=== PATIENT | male | born 1975 | race Caucasian/White ===

== ENCOUNTER 2023-02-12 16:35 | Outpatient (OUT) | payer BC, SELFPAY ==
--- NOTE | 2023-02-12 | XR_ITS ---
The [address] [address] Patient Name: MOI LLANOS MRN: [id number] date: 1975 Sex: M Assigned Patient Location: RAD Current Patient Location: [facility] Accession/Order Number: [id number] Exam Date: 02/12/2023 16:53 Report Date: 02/15/2023 06:46 At the request of: CRYSTAL ELAM Procedure: XR knee RT 4V PROCEDURE: XR knee RT 4V HISTORY: Right knee pain , chronic COMPARISON: None. FINDINGS: BONES:No fracture, acute abnormality, or significant arthropathy. SOFT TISSUES:No visible soft tissue swelling. EFFUSION:None visible. OTHER: Negative. XR/XR knee RT 4V IMPRESSION: 1. No acute bone abnormality or significant degenerative joint disease. Electronically authenticated by: WIL MCCOLLUM Date: 02/15/2023 06:46
--- NOTE | 2023-02-12 | XR_ITS ---
The [address] [address] Patient Name: MOI LLANOS MRN: [id number] date: 1975 Sex: M Assigned Patient Location: [facility] Current Patient Location: Accession/Order Number: [id number] Exam Date: 02/12/2023 16:53 Report Date: 02/15/2023 06:45 At the request of: CRYSTAL BLUNT Procedure: XR cervical spine 5V EXAMINATION: XR cervical spine 5V HISTORY: M54.2; Cervicalgia ; chronic neck pain and left arm numbness COMPARISON: XR C-spine 12/08/2018 FINDINGS: BONES: Straightening of normal lordotic curvature. No fracture or spondylolisthesis. No significant facet arthropathy. DISC SPACES: Mild narrowing C4-C5. Moderate narrowing C5-C6 and C6-C7 with posterior disc-osteophyte complexes. PARASPINOUS: Negative. No paraspinous abnormality is seen. OTHER: Negative. XR/XR cervical spine 5V IMPRESSION: 1. Moderate degenerative disc disease of mid and lower cervical spine; progressed since prior study. Electronically authenticated by: WIL MCCOLLUM Date: 02/15/2023 06:45
== END 2023-02-12 16:36 | disposition home or self-care (01) ==
LOC: RAD 16:38
PROVIDERS: Family Provider Family Medicine; PCP Family Medicine; Visit Provider Family Medicine
DX: M54.2 Cervicalgia (principal); M25.561 Pain in right knee; M50.30 Other cervical disc degeneration, unspecified cervical region
CPT/HCPCS: 72050; 73564

== ENCOUNTER 2024-02-12 12:42 | Emergency (ER) | payer BC, SELFPAY ==
[2024-02-12 13:00] VITALS: BP 121/78; PULSE 82; TEMP 36.6; O2SAT 97; BMI 28.6
--- NOTE | 2024-02-12 13:30 | CT_ITS ---
[address] [address] Patient Name: MOI LLANOS MRN: [id number] date: 1975 Sex: M Assigned Patient Location: ER Current Patient Location: Accession/Order Number: [id number] Exam Date: 02/12/2024 14:32 Report Date: 02/12/2024 15:14 At the request of: CORI WYNNE Procedure: CT abdomen pelvis w con EXAMINATION: CT abdomen pelvis w con HISTORY: pain, rectal bleeding COMPARISON: 03/16/2022 TECHNIQUE: CT images were created with IV contrast. Axial, Coronal, and Sagittal images. Dose reduction techniques were achieved by using automated exposure control and/or adjustment of mA and/or kV according to patient size and/or use of iterative reconstruction technique. FINDINGS: LUNG BASES: No visible pulmonary or pleural disease. LIVER: Diffuse hypoattenuation consistent with hepatic steatosis BILIARY: No visible dilatation or calcification. PANCREAS: No lesion, fluid collection, ductal dilatation, or atrophy. SPLEEN: No enlargement or focal lesion. ADRENALS: No mass or enlargement. KIDNEYS: No mass, obstruction, or calcification. BOWEL/MESENTERY: No visible mass, obstruction, or bowel wall thickening. Normal appendix AORTA/VASCULAR: No aortic aneurysm. Moderate calcific atherosclerosis RETROPERITONEUM: No mass or adenopathy. LYMPH NODES: No adenopathy. URINARY BLADDER: Moderate distention PELVIC ORGANS: No visible mass. Pelvic organs appropriate for patient age. ABDOMINAL WALL: No mass or hernia. BONES: Lumbosacral fusion OTHER: Implanted device left leg CT/CT abdomen pelvis w con IMPRESSION: No acute intraperitoneal abnormality Electronically authenticated by: ANN JUDGE Date: 02/12/2024 15:14
--- NOTE | 2024-02-12 13:32 | ED.GIBLEED1 ---
HPI - GI Bleed General Chief complaint: GI Bleed Stated complaint: RECTAL BLEEDING Time Seen by Provider: 02/12/24 13:26 Source: patient and family Mode of arrival: walk-in Limitations: no limitations History of Present Illness HPI Narrative: 48 year old male presents to the ED for rectal bleeding. Reports having an episode with a bowel movement 4 days ago. States it was a hard stool. The bleeding returned last night. States it is bright red. Denies fever, chills, injury, abd pain, N/V/D. He has been on narcotics for 3-4 weeks s/p spine surgery. He takes 81 mg asa daily. Denies consumption of alcohol; reports one drink per year if any. Related Data Home Medications ?Medication ?Instructions ?Recorded ?Confirmed albuterol sulfate 90 mcg/actuation 2 inh inhalation Q4H PRN shortness 02/12/24 02/12/24 aerosol inhaler (Ventolin HFA) of breath or wheezing aspirin 81 mg chewable tablet 1 tab PO DAILY 02/12/24 02/12/24 carisoprodol 350 mg tablet 350 mg PO TID 02/12/24 02/12/24 dapagliflozin propanediol 10 mg 10 mg PO DAILY 02/12/24 02/12/24 tablet (Farxiga) finasteride 5 mg tablet 5 mg PO DAILY 02/12/24 02/12/24 fluconazole 100 mg tablet 100 mg PO DAILY 02/12/24 02/12/24 hydrochlorothiazide 25 mg tablet 25 mg PO DAILY 02/12/24 02/12/24 lisinopril 2.5 mg tablet 2.5 mg PO DAILY 02/12/24 02/12/24 meloxicam 15 mg tablet 15 mg PO DAILY 02/12/24 02/12/24 metformin 500 mg tablet 500 mg PO BID 02/12/24 02/12/24 metoprolol tartrate 25 mg tablet 25 mg PO BID 02/12/24 02/12/24 pantoprazole 40 mg tablet,delayed 40 mg PO BID 02/12/24 02/12/24 release pregabalin 150 mg capsule 150 mg PO TID 02/12/24 02/12/24 rosuvastatin 20 mg tablet 20 mg PO DAILY 02/12/24 02/12/24 tamsulosin 0.4 mg capsule 0.4 mg PO DAILY 02/12/24 02/12/24 Previous Rx's ?Medication ?Instructions ?Recorded docusate sodium 100 mg capsule 100 mg PO BID #14 caps 02/12/24 (Colace) Allergies Allergy/AdvReac Type Severity Reaction Status Date / Time cephalexin (From Keflex) AdvReac Severe Unknown Verified 02/12/24 13:05 Review of Systems ROS Constitutional Denies: fever or chills Ears, nose, mouth, and throat Denies: neck pain Cardiovascular Denies: chest pain Respiratory Denies: shortness of breath Gastrointestinal Reports: blood in stool; Denies: abdominal pain, nausea, vomiting, diarrhea, constipation, bloating, painful bowel movements or rectal pain Genitourinary Denies: painful urination or blood in urine Musculoskeletal Denies: back pain or neck pain Integumentary/Breast Denies: rash Neurological Denies: headache or dizziness PFSH PFSH Social History Little interest or pleasure in doing things: not at all Feeling down, depressed, or hopeless: not at all Exam Constitutional Vital Signs, click to edit/add: Last Vital Signs Temp 98 F 02/12/24 13:00 Pulse 82 02/12/24 13:00 Resp 18 02/12/24 13:00 BP 121/78 02/12/24 13:00 Pulse Ox 97 02/12/24 13:00 O2 Del Method Room Air 02/12/24 13:00 Common normals: no apparent distress and oriented x3 General appearance: cooperative Eye Common normals: conjunctivae normal and no scleral icterus Neck & C-Spine Common normals: supple Chest Chest: symmetrical chest wall rise Respiratory Common normals: normal respiratory effort Effort & inspection: able to speak in complete sentences and symmetric chest movement Cardio Common normals: regular rate GI Common normals: Normal to inspection, nondistended, normoactive bowel sounds present and soft to palpation Palpation: tender Details: epigastric Rectal Exam - Male: visual inspection normal, normal sphincter tone, heme positive stool and tenderness; no hemorrhoids and no fecal impaction Other: RN at bedside for director center. No gross bleeding noted on examination. Neuro Common normals: oriented x3 and moves all extremities Sensorium/orientation: awake and alert Speech: speech normal Course Vital Signs Vital signs: Vital Signs Temperature 98 F 02/12/24 13:00 Pulse Rate 82 02/12/24 13:00 Respiratory Rate 18 02/12/24 13:00 Blood Pressure 121/78 02/12/24 13:00 Pulse Oximetry 97 02/12/24 13:00 Oxygen Delivery Method Room Air 02/12/24 13:00 Temperature 98 F 02/12/24 13:00 Pulse Rate 82 02/12/24 13:00 Respiratory Rate 18 02/12/24 13:00 Blood Pressure 121/78 02/12/24 13:00 Pulse Oximetry 97 02/12/24 13:00 Oxygen Delivery Method Room Air 02/12/24 13:00 MDM - GI Bleed MDM Narrative Medical decision making narrative: CT scan was negative for acute findings. Hgb was 13.2. No gross bleeding was noted on examination. Hemoccult was positive. The patient was hemodynamically stable. He was encouraged to follow up with GI for a recheck, further evaluation and treatment. He takes Protonix. He reported passing a hard stool with the initial episode of bleeding. A prescription was provided for Colace. Return precautions were discussed. Medical Records Attestation: I reviewed the patient's medical records. Lab Data Attestation: I reviewed the patient's lab results. Labs: Lab Results 02/12/24 02/12/24 02/12/24 Range/Units 13:29 13:35 15:26 WBC 12.2 H (4.0-11.0) 10^3/uL RBC 4.87 (4.70-6.10) 10^6/uL Hgb 13.2 L (14.0-18.0) g/dL Hct 40.5 L (42.0-54.0) % MCV 83.2 (80.0-94.0) fL MCH 27.1 (25.9-34.0) pg MCHC 32.6 (29.9-35.2) g/dL RDW 14.5 (11.0-15.0) % Plt Count 334 (150-450) 10^3/uL MPV 10.6 (9.5-13.5) fL Neut % (Auto) 61.8 (43.0-75.0) % Lymph % (Auto) 27.6 (20.5-60.0) % [place] % (Auto) 5.8 (1.7-12.0) % Eos % (Auto) 3.6 (0.9-7.0) % Baso % (Auto) 0.8 (0.2-2.0) % Neut # (Auto) 7.5 H (1.4-6.5) 10^3/uL Lymph # (Auto) 3.4 (1.2-3.8) 10^3/uL [place] # (Auto) 0.7 (0.3-0.8) 10^3/uL Eos # (Auto) 0.4 (0.0-0.7) 10^3/uL Baso # (Auto) 0.1 (0.0-0.1) 10^3/uL Abs Immat Gran (auto) 0.05 H (0.00-0.03) 10^3/uL Imm/Tot Granulo (auto) 0.4 (0.0-0.5) % PT 9.9 (9.0-11.6) sec INR 0.93 APTT 26.8 (22.3-36.2) sec Sodium 135 L (136-145) mmol/L Potassium 4.1 (3.5-5.1) mmol/L Chloride 98 (98-107) mmol/L Carbon Dioxide 27.2 (21.0-32.0) mmol/L Anion Gap 13.9 BUN 16.0 (7.0-18.0) mg/dL Creatinine 0.75 (0.70-1.30) mg/dL Est GFR ( Amer) >60 (>=60 mL/min/1.73m^2) Est GFR (Non-Af Amer) >60 (>=60 mL/min/1.73m^2) BUN/Creatinine Ratio 21.3 Glucose 293 H (74-106) mg/dL Calcium 9.5 (8.5-10.1) mg/dL Total Bilirubin 0.2 (0.2-1.0) mg/dL AST 12 L (15-37) U/L ALT 26 (16-63) U/L Alkaline Phosphatase 144 H (46-116) U/L Total Protein 7.0 (6.4-8.2) g/dL Albumin 3.0 L (3.4-5.0) g/dL Globulin 4.0 g/dL Albumin/Globulin Ratio 0.8 Lipase 38.0 (16.0-77.0) U/L Urine Color Lt. yellow (YELLOW) Urine Clarity Clear (CLEAR) Urine pH 6.5 (5.0-9.0) Ur Specific [place] 1.010 (1.005-1.025) Urine Protein Negative (NEG/TRACE) mg/dL Urine Glucose (UA) >=1000 A (NEGATIVE) mg/dL Urine Ketones Negative (NEGATIVE) mg/dL Urine Occult Blood Negative (NEGATIVE) Urine Nitrite Negative (NEGATIVE) Urine Bilirubin Negative (NEGATIVE) Urine Urobilinogen 0.2 (0.2-1.0) EU/dL Ur Leukocyte Esterase Negative (NEGATIVE) Stool Occult Blood Positive A Imaging Data CT scan - abdomen: Attestation: I have reviewed the pertinent imaging results. Radiologist's impression: ITS Impressions Abdomen/Pelvis CT 02/12/24 13:30 IMPRESSION: No acute intraperitoneal abnormality Electronically authenticated by: ANN JUDGE Date: 02/12/2024 15:14 Discharge Plan Discharge Chief Complaint: GI Bleed Clinical Impression: Rectal bleeding Patient Disposition: Home, Self-Care Time of Disposition Decision: 15:33 Condition: Good Mode of Transportation: Private Vehicle Prescriptions / Home Meds: New docusate sodium [Colace] 100 mg capsule 100 mg PO BID Qty: 14 0RF No Action albuterol sulfate [Ventolin HFA] 90 mcg/actuation HFA aerosol inhaler 2 inh INHALATION Q4H PRN (Reason: shortness of breath or wheezing) aspirin 81 mg tablet,chewable 1 tab PO DAILY carisoprodol 350 mg tablet 350 mg PO TID dapagliflozin propanediol [Farxiga] 10 mg tablet 10 mg PO DAILY finasteride 5 mg tablet 5 mg PO DAILY fluconazole 100 mg tablet 100 mg PO DAILY hydrochlorothiazide 25 mg tablet 25 mg PO DAILY lisinopril 2.5 mg tablet 2.5 mg PO DAILY meloxicam 15 mg tablet 15 mg PO DAILY metformin 500 mg tablet 500 mg PO BID metoprolol tartrate 25 mg tablet 25 mg PO BID pantoprazole 40 mg tablet,delayed release (DR/EC) 40 mg PO BID pregabalin 150 mg capsule 150 mg PO TID rosuvastatin 20 mg tablet 20 mg PO DAILY tamsulosin 0.4 mg capsule 0.4 mg PO DAILY Print Language: Slovenian Instructions: Gastrointestinal Bleeding (ED), Rectal Bleeding (ED) Additional Instructions: Continue your pantoprazole as directed. Take the stool softener as directed. Return to the ER for new or worsening symptoms. Return to the ER if you develop shortness of breath, dizziness, fever, or abdominal pain. Follow up with gastroenterology for a recheck, further evaluation and treatment. Referrals: CRYSTAL ELAM [Primary Care Provider] - 1 week Santa Rees DO [Physician] - 1 week Discharge Date/Time: 02/12/24 15:59
[2024-02-12 13:38] LABS: Internal Control Within Normal Limits; Occult Blood Positive
[2024-02-12 13:59] LABS: Basophils Absolute Auto 0.1 10^3/uL (0.0-0.1); Basophils Percent Auto 0.8 % (0.2-2.0); Eosinophils Absolute Auto 0.4 10^3/uL (0.0-0.7); Eosinophils Percent Auto 3.6 % (0.9-7.0); Hematocrit 40.5 % (42.0-54.0); Hemoglobin 13.2 g/dL (14.0-18.0); Immature Granulocytes Abs Auto 0.05 10^3/uL (0.00-0.03); Immature Granulocytes Pct Auto 0.4 % (0.0-0.5); Lymphocytes Absolute Auto 3.4 10^3/uL (1.2-3.8); Lymphocytes Percent Auto 27.6 % (20.5-60.0); Mean Corpuscular HGB Conc 32.6 g/dL (29.9-35.2); Mean Corpuscular Hemoglobin 27.1 pg (25.9-34.0); Mean Corpuscular Volume 83.2 fL (80.0-94.0); Mean Platelet Volume 10.6 fL (9.5-13.5); Monocytes Absolute Auto 0.7 10^3/uL (0.3-0.8); Monocytes Percent Auto 5.8 % (1.7-12.0); Neutrophils Absolute Auto 7.5 10^3/uL (1.4-6.5); Neutrophils Percent Auto 61.8 % (43.0-75.0); Platelet Count 334 10^3/uL (150-450); Red Blood Count 4.87 10^6/uL (4.70-6.10); Red Cell Distribution Width 14.5 % (11.0-15.0); White Blood Count 12.2 10^3/uL (4.0-11.0)
[2024-02-12 14:16] LABS: INR 0.93; Partial Thromboplastin Time 26.8 sec (22.3-36.2); Prothrombin Time 9.9 sec (9.0-11.6)
[2024-02-12 14:26] LABS: Alanine Aminotransferase 26 U/L (16-63); Albumin Globulin Ratio 0.8; Alkaline Phosphatase 144 U/L (46-116); Anion Gap 13.9; Aspartate Amino Transferase 12 U/L (15-37); BUN Creatinine Ratio 21.3; Bilirubin Total 0.2 mg/dL (0.2-1.0); Calcium 9.5 mg/dL (8.5-10.1); Carbon Dioxide 27.2 mmol/L (21.0-32.0); Chloride 98 mmol/L (98-107); Estimated GFR (African America >60 (>=60 mL/min/1.73m^2); Estimated GFR (Non-African Ame >60 (>=60 mL/min/1.73m^2); Glucose 293 mg/dL (74-106); Potassium 4.1 mmol/L (3.5-5.1); Sodium 135 mmol/L (136-145)
[2024-02-12 15:32] LABS: Bilirubin Urine NEGATIVE (NEGATIVE); Blood Urine NEGATIVE (NEGATIVE); Clarity Urine CLEAR (CLEAR); Color Urine LT. YELLOW (YELLOW); Glucose Urine UA >=1000 mg/dL (NEGATIVE); Ketones Urine NEGATIVE (NEGATIVE); Leukocyte Esterase Urine NEGATIVE (NEGATIVE); Nitrite Urine NEGATIVE (NEGATIVE); Protein Urine NEGATIVE (NEG/TRACE); Urine Microscopic Indicated NO; Urobilinogen Urine 0.2 EU/dL (0.2-1.0); pH Urine 6.5 (5.0-9.0)
== END 2024-02-12 15:59 | disposition home or self-care (01) ==
PROVIDERS: Nurse Practitioner Family; Emergency Provider Emergency Medicine; Family Provider Family Medicine; PCP Family Medicine
DX: K62.5 Hemorrhage of anus and rectum (principal); Z79.82 Long term (current) use of aspirin; Z98.1 Arthrodesis status
CPT/HCPCS: 36415; 74177; 80053; 81003; 83690; 85025; 85610; 85730; 99285; G0328; Q9967

== ENCOUNTER 2025-01-19 10:53 | Emergency (ER) | payer BC, SELFPAY ==
[2025-01-19] VITALS (18 sets, daily range): BP systolic 109–155; BP diastolic 63–92; PULSE 76; TEMP 37.1; O2SAT 93–97; BMI 27.9
--- OUTSIDE RECORDS SUMMARY | 2025-01-19 11:07 | XMS_ITS | Clinical Summary ---
Author Organization [facility] Address [address] [place] [address] Phone Care Team Providers Care Bed Spring Maker Name Role Phone Ahsan Carmona MD Primary Care Provider [phone] Allergies Active AllergyReactionsCriticalityNoted WomlQrexcbofNsjmfvskwhOdtthyt49/07/2023 Medications MedicationSigDispense QuantityRefillsLast FilledStart DateEnd DateStatus albuterol 90 mcg/actuation inhaler Inhale 1 puff every 4 hours if needed.Active aspirin 81 mg chewable tablet Chew 1 tablet (81 mg) once daily.Active dapagliflozin propanediol (Farxiga) 10 mg Take 1 tablet (10 mg) by mouth once daily.11/06/2021ctive finasteride (Proscar) 5 mg tablet Take 1 tablet (5 mg) by mouth once daily.01/30/2022ctive hydroCHLOROthiazide (HYDRODiuril) 25 mg tablet Take 1 tablet (25 mg) by mouth once daily.Active HYDROcodone-acetaminophen ([place]) 5-325 mg tablet Take 1 tablet by mouth every 6 hours if needed.Active lisinopril 2.5 mg tablet Take 1 tablet (2.5 mg) by mouth once daily.Active metFORMIN XR 500 mg 24 hr tablet Take 1 tablet (500 mg) by mouth 2 times a day.Active pregabalin (Lyrica) 150 mg capsule Take 1 capsule (150 mg) by mouth 2 times a day.Active tamsulosin (Flomax) 0.4 mg 24 hr capsule Take 1 capsule (0.4 mg) by mouth once daily.Active carisoprodol (Soma) 350 mg tablet Take 1 tablet (350 mg) by mouth 2 times a day as needed for muscle spasms.Active Stiolto Respimat 2.5-2.5 mcg/actuation mist inhaler Inhale 2 Inhalations once daily.Active meloxicam (Mobic) 15 mg tablet Take 1 tablet (15 mg) by mouth once daily.Active metoprolol tartrate (Lopressor) 25 mg tablet Indications:Coronary artery disease, unspecified vessel or lesion type, unspecified whether angina present, unspecified whether [place] or transplanted heartTake 0.5 tablets (12.5 mg) by mouth 2 times a day. 90 tablet 304504/6Active nitroglycerin (Nitrostat) 0.4 mg SL tablet Indications:History of PTCAPlace 1 tablet (0.4 mg) under the tongue every 5 minutes if needed for chest pain for up to 25 doses. 25 tablet 5Active sildenafil (Viagra) 50 mg tablet Indications:Drug-induced erectile dysfunctionTake 1 tablet (50 mg) by mouth once daily as needed for erectile dysfunction. 30 tablet 5Active rosuvastatin (Crestor) 20 mg tablet Indications:Hyperlipidemia, unspecified hyperlipidemia typeTake 1 tablet (20 mg) by mouth once daily. 90 tablet 3:19 PM EDT507/6Active Active Problems ProblemNoted DateDiagnosed DateBody mass index (BMI) of 29.0 to 29.9 in adult 06/25/2024ED (erectile dysfunction)06/25/2024urrent vdsjfk514Preop riovocpgwxs62/31/2024CAD (coronary artery disease)01/29/2023OPD (chronic obstructive pulmonary disease)3Diabetes iufrklla13/07/2023History of PTCA103/31/2022HTN (hypertension)01/29/20235850Uostmlnvmzkuim12/07/2023Myocardial mycpjixfxq92/07/2023 Immunizations ImmunizationAdministration DatesNext MlnIYS0709/12/2020Influenza, Unspecified 12/26/2019 Family History Medical HistoryRelationNameCommentsDepressionBrotherHypertensionBrother DepressionFatherHypertensionFatherRelationNameStatusCommentsBrotherFather Social History Tobacco UseTypesPacks/DayYears UsedDateSmoking Tobacco: Every DayCigarettes Smokeless Tobacco: Never Tobacco Cessation:Ready to Q uit: No; Counseling Given: Yes Alcohol UseStandard Drinks/WeekCommentsNever0 (1 standard drink = 0.6 oz pure alcohol)Sex and Gender InformationValueDate RecordedSex Assigned at BirthNot on fileLegal HinAnln31/26/2022 10:28 AM ESTGender IdentityNot on fileSexual OrientationNot on file Last Filed Vital Signs Vital SignReadingTime TakenCommentsBlood Ifnittjx811/66006/25/2024 4:00 PM EDT Ypuyk7098/03/2025 4:00 PM EDTTemperature--Respiratory Rate--Oxygen Saturation-- Inhaled Oxygen Concentration--Xiduab46 kg (216 lb)06/25/2024 4:00 PM EDTHeight 182.9 cm (6')06/25/2024 4:00 PM EDTBody Mass Index29.29006/25/2024 4:00 PM EDT Plan of Treatment DateTypeDepartmentCare Team (Latest Contact Info)Muyzpdcjrsn00/21/2026 3:20 PM EDTOffice Visit [facility] [address] [facility] [address] [place] [address] Zeeshan Wilhelm, [address] [facility] [address] [place] [address] Health MaintenanceDue DateLast DoneCommentsCT Ybxmsepqpiwm50/08/1976Colonoscopy 1975Colorectal Cancer Anuaiqiok63/08/1976Diabetes: Hemoglobin A1C 1975Diabetes: Urine Protein Wufmjdjqu79/08/1976FIT-DNA (Cologuard) 1975FIT1975HIV Riroaztij71/08/1976Lipid Panel1975Sigmoidoscopy 1975Yearly Adult Bmhqynxz57/08/1976MMR Vaccines (1 of 1 - Standard series) 06/30/1976Diabetes: Retinopathy Uiuohakjh59/08/1986Hepatitis C Screening 06/30/1993Hepatitis B Vaccines (1 of 3 - 19+ 3-dose series)06/30/1994 Pneumococcal Vaccine: Pediatrics and At-Risk Adult Patients (1 of 2 - PCV) 06/30/1994Influenza Vaccine (#1)511/, 02/22/2022, 02/08/2020, Additional history existsCOVID-19 Vaccine (1 - season)2024Zoster Vaccines (1 of 2)06/30/2025DTaP/Tdap/Td Vaccines (2 - Tdap)/ HIB VaccinesAged OutNo longer eligible based on patient's age to complete this topicHPV VaccinesAged OutNo longer eligible based on patient's age to complete this topicHepatitis A VaccinesAged OutNo longer eligible based on patient's age to complete this topicIPV VaccinesAged OutNo longer eligible based on patient's age to complete this topicMeningococcal VaccineAged OutNo longer eligible based on patient's age to complete this topicRotavirus VaccinesAged OutNo longer eligible based on patient's age to complete this topic Insurance Care Teams Team MemberRelationshipSpecialtyStart [place] [address] [place] [address] PCP - General07/23/20
--- OUTSIDE RECORDS SUMMARY | 2025-01-19 11:07 | XMS_ITS | Clinical Summary ---
Author Organization [facility] Address [address] [place] [address] Care Team Providers Care Telephone Directory Deliverer Name Role Phone Unallocated, Noms Provider Primary Care Provi nikki Allergies Active AllergyReactionsCriticalityNoted DateCommentsCephalexinItching,RashMedium 10/23/2012 Medications MedicationSigDispense QuantityRefillsLast FilledStart DateEnd DateStatus tamsulosin (Flomax) 0.4 MG 24 hr capsule Take 0.4 mg by mouth in the morning.Active rosuvastatin (Crestor) 20 MG tablet Take 20 mg by mouth in the morning.Active pregabalin (Lyrica) 150 MG capsule Take 150 mg by mouth in the morning and 150 mg in the evening and 150 mg before bedtime.Active metoprolol tartrate (Lopressor) 25 MG tablet Take 25 mg by mouth in the morning and 25 mg before bedtime.05/21/2023ctive metFORMIN (Glucophage) 500 MG tablet Take 500 mg by mouth in the morning and 500 mg in the evening. Take with meals. Active meloxicam (Mobic) 15 MG tablet Take 15 mg by mouth DailyActive lisinopril 2.5 MG tablet Take 2.5 mg by mouth in the morning.3Active Toujeo Max SoloStar 300 UNIT/ML injection Inject under the skinActive HYDROcodone-acetaminophen ([place]) 5-325 MG tablet take 1 tablet by mouth every 4 hours if needed for pain for 7 daysActive finasteride (Proscar) 5 MG tablet Take 5 mg by mouth Daily05/21/2023ctive dexlansoprazole (Dexilant) [address] capsule Take 1 capsule by mouth DailyActive aspirin 81 MG EC tablet Take 81 mg by mouth in the morning.Active albuterol HFA 90 mcg/act inhaler Inhale 2 puffs every 4 (four) hours if neededActive Social History Tobacco UseTypesPacks/DayYears UsedDateSmoking Tobacco: Never AssessedSex and Gender InformationValueDate RecordedSex Assigned at BirthNot on fileLegal Sex Male06/06/2022 6:56 PM EDTGender IdentityNot on fileSexual OrientationNot on file Last Filed Vital Signs Vital SignReadingTime TakenCommentsBlood Ddkjojji247/8003 2:23 PM EST Qvgge895006/01/2023 2:23 PM AWEUogbmwxphzt25.8 ??C (98.2 ??F)06/01/2023 2:23 PM ESTRespiratory Rate--Oxygen Jfiomuslsa58%06/01/2023 2:23 PM ESTInhaled Oxygen Concentration--Bwpwip58.3 kg (208 lb)06/01/2023 2:23 PM MWSCqdstt700.4 cm (6' 1 )04/27/2020 12:00 PM ESTBody Mass Index27.44004/27/2020 12:00 PM EST Plan of Treatment Health MaintenanceDue DateLast DoneCommentsCT Grtdkqjmmyqt33/08/1976Colonoscopy 1975Colorectal Cancer Yemnqzled23/08/1976FIT-DNA1975FIT1975 FOBT1975 7868Tbodqszkslcuq43/08/1976Influenza Vaccine (#1)511/, 02/22/2022, 02/22/2020, Additional history exists Insurance Care Teams Team MemberRelationshipSpecialtyStart DateEnd Date Unallocated, Noms Provider, [address] [place] [address] [facility] - [facility]
--- OUTSIDE RECORDS SUMMARY | 2025-01-19 11:07 | XMS_ITS | Clinical Summary ---
Author Organization [facility] Address [address] [place] [address] Care Team Providers Care Systems Development Consultant Name Role Phone Ahsan Carmona MD Primary Care Provider [phone] Allergies No known active allergies Medications MedicationSigDispense QuantityRefillsLast FilledStart DateEnd DateStatus rosuvastatin (Crestor) 20 mg tablet Take 20 mg by mouth in the morning.02/26/2022ctive pregabalin (Lyrica) 150 mg capsule Take 150 mg by mouth twice a day.04/29/2019Active pantoprazole (ProtoNix) 40 mg EC tablet Take 40 mg by mouth in the morning and at bedtime.04/13/2023ctive nitroglycerin (Nitrostat) 0.[address] 0.4 mg under the tongue.07/27/2020ctive metoprolol tartrate (Lopressor) 25 mg tablet Take 25 mg by mouth twice a day.07/22/2020ctive metFORMIN (Glucophage) 500 mg tablet Take 500 mg by mouth.10/30/2012ctive lisinopril 2.5 mg tablet 1 tab(s), Oral, Daily, # 30 tab(s), 5 Refill(s), Pharmacy: [id number], take 1 tablet by mouth once daily, 185.42, cm, 02/25/23 15:58:00 EST, Height, 92.08, kg, 02/25/23 16:09:00 EST, Weight Ofwqjn2210/15/2022ctive HYDROcodone-acetaminophen (Artemus) 5-325 mg tablet Take 1 tablet by mouth every 6 (six) hours if needed.08/18/2019Active hydroCHLOROthiazide (HYDRODiuril) 25 mg tablet Take 25 mg by mouth in the morning.04/24/2019Active glimepiride (Amaryl) 1 mg tablet 1 mg.02/26/2022ctive fluticasone propion-salmeteroL (Advair Diskus) 250-50 mcg/dose diskus inhaler Inhale 1 puff.Active dapagliflozin propanediol (Farxiga) 10 mg Take 10 mg by mouth in the morning.11/02/2021ctive carisoprodol (Soma) 350 mg tablet Take 350 mg by mouth if needed in the morning and at bedtime.05/21/2019Active nfnbfoblcc-mkqjfbnj-uzkiszoyfn (Breztri Aerosphere) 160-9-4.8 mcg/actuation HFA aerosol inhaler Inhale 2 puffs twice a day.02/25/2022ctive aspirin 81 mg chewable tablet Chew 81 mg in the morning.07/22/2020ctive apremilast (Otezla) 30 mg tablet Take 30 mg by mouth twice a day.Active albuterol 90 mcg/actuation inhaler Inhale 1 puff every 4 (four) hours if needed.05/28/2022ctive ticagrelor (Brilinta) 90 mg tablet Take 90 mg by mouth twice a day.02/26/2022ctive tamsulosin (Flomax) 0.4 mg 24 hr capsule Take 0.4 mg by mouth in the morning.11/02/2021ctive Stiolto Respimat 2.5-2.5 mcg/actuation mist inhaler INHALE 2 PUFFS BY MOUTH EVERY 24 HOURS04/08/2023ctive True Metrix Glucose Test Strip strip use 1 TEST STRIP to TEST BLOOD SUGAR two to three times a day10/04/2022ctive TRUEplus Lancets 30 gauge misc 04/21/2023ctive meloxicam (Mobic) 15 mg tablet Take 15 mg by mouth twice a day.01/22/2022ctive nicotine (Nicoderm CQ) 21 mg/24 hr patch apply 1 patch once daily as eknwwbsn75/09/2023ctive Droplet Pen Needle 31 gauge x 5/16 needle use 1 PEN NEEDLE to inject MEDICATION once daily02/23/2023ctive Social History Tobacco UseTypesPacks/DayYears UsedDateSmoking Tobacco: Every DayCigarettes Smokeless Tobacco: Never Tobacco Cessation:Ready to Q uit: Not Asked; Counseling Given: Not Answered Alcohol UseStandard Drinks/WeekCommentsNever0 (1 standard drink = 0.6 oz pure alcohol)PHQ-2AnswerDate RecordedPatient Health Questionnaire-2 Pxdte464 [place] Safety & EnvironmentAnswerDate RecordedFear of Current or Ex-PartnerNot on file05/17/2023Emotionally AbusedNot on file05/17/2023hysically AbusedNot on file05/17/2023Sexually AbusedNot on file05/17/2023hysically or Sexually Abused Not on file05/17/2023Sex and Gender InformationValueDate RecordedSex Assigned at IjhioFwgc63/31/2024 1:23 PM ESTLegal SxdTbmh3804/10/2023 1:57 PM ESTGender JxadmftfVtoq37/31/2024 1:23 PM ESTSexual OrientationHeterosexual or Straight 04/24/2023 1:23 PM EST Last Filed Vital Signs Vital SignReadingTime TakenCommentsBlood Knbzemuc165/90005/08/2023 10:05 AM EST Dladj762405/08/2023 10:05 AM ESTTemperature--Respiratory Fszh893105/08/2023 10:05 AM ESTOxygen Pkdckajssi22%05/08/2023 10:05 AM ESTInhaled Oxygen Concentration-- Uhpgyg54.6 kg (202 lb)04/24/2023 1:29 PM VIMUdltmp944.4 cm (6' 1 )04/24/2023 1:29 PM ESTBody Mass Index26.65004/24/2023 1:29 PM EST Plan of Treatment Health MaintenanceDue DateLast DoneCommentsCT Vtyknwysvwke65/08/1976Colonoscopy 1975Colorectal Cancer Ekfubdkpp03/08/1976Diabetes: Hemoglobin A1C 1975FIT-DNA1975FIT1975FOBT1975 4171Zkyfzrgxhxmbk68/08/1976 Diabetes: Retinopathy Xkoyidfcm10/08/1986Depression Mhqdpdtnd48/08/1988Diabetes: Urine Protein Bkqgrylif84/08/1995Hepatitis B Vaccines (1 of 3 - 19+ 3-dose series)06/30/1994Pneumococcal Vaccine: Pediatrics (0 to 5 Years) and At-Risk Patients (6 to 64 Years) (1 of 2 - PCV)06/30/1994Adult Sibvtmt3806/30/1997COVID-19 Vaccine (1 - 2024- season)2024Influenza Vaccine (#1)2024 02/06/2023, 02/22/2022, 02/08/2020, Additional history existsZoster Vaccines (1 of 2)06/30/2025HIB VaccinesAged OutNo longer eligible based on patient's age to complete this topicHPV VaccinesAged OutNo longer eligible based on patient's age to complete this topicIPV VaccinesAged OutNo longer eligible based on patient's age to complete this topicMeningococcal B VaccineAged OutNo longer eligible based on patient's age to complete this topicMeningococcal VaccineAged OutNo longer eligible based on patient's age to complete this topicRotavirus Vaccines Aged OutNo longer eligible based on patient's age to complete this topic Insurance Care Teams Team MemberRelationshipSpecialtyStart [place] [address] [place] [id number] PCP - GeneralFautly Medicine04/17/23
--- OUTSIDE RECORDS SUMMARY | 2025-01-19 11:07 | XMS_ITS | Clinical Summary ---
Author Organization [employer] Address [facility] [id number] [address] [place] [address] Care Team Providers Care Customer Service Advisor Name Role Phone Ahsan Carmona MD Primary Care Provider [phone] Allergies Active AllergyReactionsCriticalityNoted DateCommentsCephalexinItchingMedium 07/20/2016Poison Jada ExtractFacial Coavpcbx51/14/2024 Eye swelling Medications * This document contains information received from the source organization and may not represent a complete record from that organization. MedicationSigDispense QuantityRefillsLast FilledStart DateEnd DateStatus metFORMIN (GLUCOPHAGE) 500 mg tablet Indications:type 2 diabetes mellitusTake 1 tablet (500 mg total) by mouth in the morning and 1 tablet (500 mg total) in the evening. Take with meals. Indications: type 2 diabetes mellitus.Active pregabalin (LYRICA) 150 mg capsule Indications:Disc displacement, lumbarTake 1 capsule (150 mg total) by mouth 3 (three) times a day. 90 capsule Active hydroCHLOROthiazide (HYDRODIURIL) 25 mg tablet Indications:hypertensionTake 1 tablet (25 mg total) by mouth daily Indications: high blood pressure.04/24/2019Active carisoprodoL (SOMA) 350 mg tablet Indications:muscle spasmTake 1 tablet (350 mg total) by mouth in the morning and 1 tablet (350 mg total) before bedtime. Indications: muscle spasm.05/21/2019 Active metoprolol tartrate (LOPRESSOR) 25 mg tablet Indications:hypertensionTake 0.5 tablets (12.5 mg total) by mouth in the morning and 0.5 tablets (12.5 mg total) before bedtime. Indications: high blood pressure.07/16/2022Active tamsulosin (FLOMAX) 0.4 mg capsule Indications:benign prostatic hyperplasia with lower urinary tract sxTake 1 capsule (0.4 mg total) by mouth in the morning. Indications: enlarged prostate with urination problem.Active dapagliflozin (FARXIGA) 10 mg tablet Indications:type 2 diabetes mellitusTake 1 tablet (10 mg total) by mouth in the morning. Indications: type 2 diabetes mellitus. HOLD 3 DAYS PRIOR TO SURGERY. Active lisinopriL (PRINIVIL,ZESTRIL) 2.5 mg tablet Indications:hypertensionTake 1 tablet (2.5 mg total) by mouth in the morning. Indications: high blood pressure.Active rosuvastatin (CRESTOR) 20 mg tablet Take 1 tablet (20 mg total) by mouth in the morning. HIGH CHOLESTEROL.Active insulin glargine U-300 conc (TOUJEO MAX U-300 SOLOSTAR) 300 unit/mL (3 mL) insulin pen Indications:type 2 diabetes mellitusInject 60 Unit under the skin Daily before evening meal Indications: type 2 diabetes mellitus.Active albuterol (VENTOLIN HFA) 90 mcg/actuation inhaler Indications:acute asthma attackInhale 2 puffs every 4 (four) hours as needed for wheezing or shortness of breath Indications: asthma attack. Uses most days 05/28/2022ctive finasteride (PROSCAR) 5 mg tablet Indications:benign prostatic hyperplasia with lower urinary tract sxTake 1 tablet (5 mg total) by mouth in the morning. Indications: enlarged prostate with urination problem.Active STIOLTO RESPIMAT 2.5-2.5 mcg/actuation mist Take 2 puffs by mouth every morning. asthmaActive pantoprazole (PROTONIX) 40 mg EC tablet Take 1 tablet (40 mg total) by mouth in the morning and 1 tablet (40 mg total) before bedtime.Active UNIFINE PENTIPS 31 gauge x 5/16 needle 12/16/2023ctive aspirin 81 mg Indications:thrombosis prevention after PCITake 1 tablet (81 mg total) by mouth in the morning. Indications: blood clot prevention following percutaneous coronary intervention. Ok to resume 06/18/23.01/28/2024ctive HYDROcodone-acetaminophen (NORCO) 5-325 mg per tablet Take 1 tablet by mouth every 4 (four) hours as needed for pain.04/08/2025Active insulin lispro (HumaLOG KwikPen Insulin) 100 unit/mL insulin pen See Instructions, Instructions: INJECT TEN UNITS SUBCUTANEOUSLY (UNDER THE SKIN) WITH evening meal,# 15 mL, 5 Refill(s), Pharmacy: [facility] #[id number], INJECT TEN UNITS SUBCUTANEOUSLY (UNDER THE SKIN) WITH evening meal, 185.42, cm, 04/04/23 10:20:00 EST, Height, 98.43, kg, 02/26/24 9:58:00 EST, Weight Dosing 4Active meloxicam (MOBIC) 15 mg tablet Take 1 tablet (15 mg total) by mouth in the morning.5Active Active Problems ProblemNoted DateDiagnosed DateUnspecified mononeuropathy of bilateral lower limbs07/31/2023Spinal stenosis of cervical hqmlhi8605/30/2023Nocturia associated with benign prostatic dmtkqqewwjs55/19/6558Obvludpzbkq79/19/2022pinal stenosis of lumbar region with neurogenic btcwmqvyzvld70/28/2022Lumbar spondylosis 12/20/2021Lumbar disc herniation with zkbfwucuvzidh76/28/2020Essential tzgutnhgbmkf66/28/2020Diabetes mellitus type 2, /28/2020GERD (gastroesophageal reflux disease)07/21/20195547Evsajvbkn08/28/2020Overweight (BMI 25.0-29.9)07/21/2019S/P insertion of spinal cord njejkvbqln80/28/2020Lumbar disc ehapqemuld77/30/2020Lumbar idnwiwfvzzpuv08/30/2020Sciatica of right side 04/08/2019 Overview (04/08/2019): Added automatically from request for surgery [id number] Disorder of bgaepc0212/02/2018 Overview (12/02/2018): Added automatically from request for surgery [id number] Postlaminectomy syndrome of lumbar zjmqlf6601/17/2017 Overview (01/17/2017): Added automatically from request for surgery [id number] Disc displacement, wgexir7512/11/2016 Overview (12/11/2016): Added automatically from request for surgery [id number] Spondylosis without myelopathy or radiculopathy, lumbar xydhpn7207/20/2016 Encounters DateTypeDepartmentCare YnlcLrkrmbmuabe54/04/2025 11:00 AM EDTOffice Visit [facility] [address] [place] [phone] Eugene Machado MD Arthrodesis status (Primary Dx); Hip pain, left; Chronic left SI joint pain11/26/2024Travelfrom Last 3 Months Immunizations ImmunizationAdministration DatesNext YpgPWO4309/12/2020Influenza, Im Trivalent Fzsugkvthqnx47/16/2020,12/26/2019Influenza, Injectable, Mdck, Preservative Free, Quad02/06/2023,02/22/2022Influenza, Injectable, quadrivalent (PF)01/13/2019 Influenza, Fdvstwvbyfu19/16/2020 Family History Medical HistoryRelationNameCommentsDiabetesBrother 1Heart diseaseBrother 1Back ProblemsFatherCancerFatherDiabetesFatherHeart diseaseFatherHypertensionFather Neck ProblemsFatherPancreatitisFatherEpilepsyMotherSeizuresMotherHeart attack Paternal GrandfatherCancerPaternal GrandmotherAnesthesia problemsNeg HxBleeding DisorderNeg HxClotting disorderNeg HxColon cancerNeg HxProstate cancerNeg Hx StrokeNeg HxRelationNameStatusCommentsBrother 1AliveBrother 2AliveFatherDeceased Maternal GrandfatherDeceasedMaternal GrandmotherDeceasedMotherAlivePaternal GrandfatherDeceasedPaternal GrandmotherDeceased Social History Tobacco UseTypesPacks/DayYears UsedDateSmoking Tobacco: Every DayCigarettes1.5 32.5Started: 07/15/1992Smokeless Tobacco: FormerChewQuit: 07/15/2018 Tobacco Cessation:Ready to Q uit: Not Asked; Counseling Given: Not Answered Alcohol UseStandard Drinks/WeekCommentsNot Currently0 (1 standard drink = 0.6 oz pure alcohol)[facility] UtilitiesAnswerDate RecordedIn the past 12 months has the [employer], [employer], oil, or water company threatened to shut off services in your home?No01/21/2024UDIT-CAnswerDate RecordedQ1: How often do you have a drink containing alcohol?2-4 times a month01/21/2024Q2: How many drinks containing alcohol do you have on a typical day when you are drinking?1 or Q3: How often do you have six or more drinks on one occasion?Never01/21/2024HQ-2 AnswerDate RecordedTotal Hljir911RAPARE - TransportationAnswerDate RecordedIn the past 12 months, has lack of transportation kept you from medical appointments or from getting medications?No01/21/2024In the past 12 months, has lack of transportation kept you from meetings, work, or from getting things needed for daily living?No01/21/2024Housing InstabilityAnswerDate RecordedAre you worried or concerned that in the next two months you may not have stable housing that you own, rent or stay in as a part of a household?No01/21/2024 ChildcareAnswerDate QtoighbdCpmjimmdrKxhkyax97/12/2019EmploymentAnswerDate KgulootgOkxndyfnaaIgwqorh61/12/2019Hunger ScreeningAnswerDate RecordedWithin the past 12 months we worried whether our food would run out before we got money to buy more.Never True07/09/2024Within the past 12 months the food we bought just didn't last and we didn't have money to get more.Never True07/09/2024Purpose - LifeAnswerDate RecordedPurpose and direction in azeyOwzwsmo54/11/2021ex and Gender InformationValueDate RecordedSex Assigned at BirthNot on fileLegal Sex Male12/21/2014 2:19 PM EDTGender IdentityNot on fileSexual OrientationNot on file Last Filed Vital Signs Vital SignReadingTime TakenCommentsBlood Insnwhpj208/6702/27/2024 10:46 AM EST Zwcwm245802/27/2024 10:46 AM NGKCcjzokltjeo57.6 ??C (97.9 ??F)01/22/2024 12:05 PM EDTRespiratory Xnpm2401 12:05 PM EDTOxygen Nfycjjgswi63%01/22/2024 12:05 PM EDTInhaled Oxygen Concentration--Irvnbe07 kg (216 lb)11/26/2024 11:00 AM EDT Vrlksh334.4 cm (6' 0.99 )11/26/2024 11:00 AM EDTBody Mass Index28. 11:00 AM EDT Plan of Treatment Health MaintenanceDue DateLast DoneCommentsDiabetic Ophthalmology Exam1975 Statin Use: Qjfztkph77/08/1976Tobacco Sjxukvlple70/08/1976Adult BMI Follow Up Plan06/30/1993Diabetic Foot Exam06/30/1993Influenza Agxgyso19/, 02/22/2022, 02/08/2020, Additional history existsDepression Ozotyijlh12/29/2025 01/21/2024Tobacco Jufsjsgcc20/dult BMI Pruqzdorr23/04/2026 11/26/2024DTaP,Tdap and Td Vaccines (2 - Tdap) Goals GoalPatient Goal TypeAssociated ProblemsRecent ProgressPatient-Stated?Author Return home Alycia Turner RN Note: Evaluation of progress towards goal: Plan to return home with spouse. Medical Devices ImplantedTypeAreaManufacturerDevice IdentifierShelf Expiration DateModel / Serial / LotPrestige Lp Cervical Disc Implanted:Qty: 1 on 06/10/2023 [facility]ageN/A: Spine CervicalMedtronics Sofamor [id number] / / [id number] Bn Bn Fbr 10cc Frzdr Pliafx Rpl [id number]+Specials [id number] - [id number] - [id number] Implanted:Qty: 1 on 01/20/2024 [facility]: Spine QkwbmeTfkdlwb29/14/[id number] / [id number] / Kit Precision Pt Trial - [id number] Implanted:Qty: 1 on 03/01/2017 by Zeeshan Huerta MD at [place] [id number] / / Kit Infinion Lead Trial 50cm - [id number] Implanted:Qty: 1 on 03/01/2017 by Zeeshan Huerta MD at [place] [id number] / / Mini Nrstm Prcs Spctr 213cm 1 - [id number] Implanted:Qty: 1 on 03/01/2017 by Zeeshan Huerta MD at [facility]-4116 / / Disc Intvrtb 16mm 6mm Pstg Lp Spne Rpl Special [id number] - [id number] Implanted:Qty: 1 on 06/10/2023 by [facility]Other ImplantN/A: Spine Cervicaluse MDTR SPIN11/06/[id number] / / [id number] Spnl 25t12se Adaptix - [id number] Implanted:Qty: 1 on 01/20/2024 by [facility]Other ImplantN/A: Spine LumbarMedtronics Sofamor Danek01/25/[id number] / / [id number] Spnl 70s10cy Adaptix - [id number] Implanted:Qty: 1 on 01/20/2024 by [facility]Other ImplantN/A: Spine LumbarMedtronics Sofamor Danek05/09/[id number] / / [id number] Spnl Cd Hzn Solera 40mm 4.75mm Preb Cocrmo Crv Ns Solera - [id number] Implanted:Qty: 2 on 01/20/2024 by [facility]RodN/A: Spine Lumbaruse MDTR [id number] / / Screw Bn 50mm 6.5mm Ma Lp 2 Ld Clr Cd Spne Ti Cocr Cd Hzn - [id number] Implanted:Qty: 1 on 01/20/2024 by Eugene Machado MD at [facility]/A: Spine Lumbaruse MDTR [id number] / / Screw Bn 45mm 6.5mm Ma Lp 2 Ld Clr Cd Spne Ti Cocr Cd Hzn - [id number] Implanted:Qty: 2 on 01/20/2024 by Eugene Machado MD at [facility]/A: Spine Lumbaruse MDTR [id number] / / Screw Bn 40x6.5mm 2 Ld Ma Clr - [id number] Implanted:Qty: 1 on 01/20/2024 by Eugene Machado MD at [facility]/A: Spine Lumbaruse MDTR [id number] / / Screw Set Ti Spne Brk Off Cd Hzn Ns 4.75 Mm Jt - [id number] Implanted:Qty: 4 on 01/20/2024 by Eugene Machado MD at [facility]/A: Spine Lumbaruse MDTR [id number] / / Cardiac StentDescription:cardiac stent implanted 2020 Cardic Stent-02/24/2022 Implanted:02/24/2022 (Quantity not on file) Insurance Advance Directives * Full Code (Latest Code Status on File) Date ActivatedDate EzbvgrchiwlPjyuzdco13/28/2024 4:46 01/22/2024 4:24 PM * Full Code Date ActivatedDate InactivatedComments06/10/2023 7:28 PM06/11/2023 4:20 PM * Full Code Date ActivatedDate InactivatedComments07/21/2019 12:16 PM07/21/2019 5:50 PM Care Teams Team MemberRelationshipSpecialtyStart [place] [address] [address] PCP - GeneralFamily Medicine05/20/19 Pain management Referring Physician06/06/23
--- OUTSIDE RECORDS SUMMARY | 2025-01-19 11:16 | XMS_ITS | CCD ---
Author Organization [facility] Care Team Providers Care Physician Underwriter Name Role Phone CRYSTAL CARMONA Primary Care Physician [phone] Crystal Carmona Unavailable Unavailable Unavailable MD Crystal Carmona Primary Care Provider [phone] MD Eliazar Vargas Jr Emergency Provider MD Jacob Rosenthal Admit Provider MD Di Patel Attending Provider MD Crystal Carmona Primary Care Provider [phone] MD Tammy Monroy Admit Provider MD Ivanna Nova Other Provider [phone] MD Phillip Roth Attending Provider Unavailable Unavailable Dr. Zeeshan Wilhelm Attending Unava Dr. Ivanna Barrientos Referring Unavaila Crystal Crowell Primary Care Unavailable Dr. Ivanna Nova Attending Unavaila Crystal Crowell Primary Care Unavailable Crystal Carmona Primary Care Unavailable Dr. Zeeshan Wilhelm Attending Haileyva promise Wilhelm, Dr. Zeeshan Barnes Referring Unava promise Wilhelm, Dr. Zeeshan Barnes Attending Haileyva promise Wilhelm, Dr. Zeeshan Barnes Referring Unava ilable Crystal Carmona Primary Care Unavailable MD Allie Westfall Attending Provider Tien HURTADO Attending Unavailable CRYSTAL CARMONA Referring Unavailable ZEESHAN WILHELM Attending Unavailable ZEESHAN WILHELM Admitting Unavailable MARIALUISA, DR ROJAS Consulting Unavailable MARKER ., DR RODRIGUEZ Admitting Unavailable MARKER ., DR RODRIGUEZ Attending Unavailable MISC, DR LEE Primary Care Unavailable ROBERTO STILES Consulting Unavailable MISC, DR LEE Primary Care Unavailable FAWWAD, SUAZO H Admitting Unavailable FAWWAD, SUAZO H Attending Unavailable FAWWAD, SUAZO H Consulting Unavailable YURIDIA SIERRA Consulting Unavailable CORI WYNNE Consulting Unavailable ZIEBER, DR WIL Swift Consulting Unavailable MISC, DR LEE Primary Care Unavailable VERHOFF, EDY Admitting Unavailable VERHOFF, EDY Attending Unavailable VERHOMAGGIE, EDY Consulting Unavailable MISC, DR LEE Primary Care Unavailable DIAB ., CATRINA Admitting Unavailable DIAB ., CATRINA Attending Unavailable DIAB ., CATRINA Consulting Unavailable MISC, DR LEE Primary Care Unavailable DIAB ., CATRINA Admitting Unavailable WIL GUNN Consulting Unavailable DIAB ., CATRINA Attending Unavailable DIAB ., CATRINA Consulting Unavailable GO, ROBERTO Attending Unavailable GO, ROBERTO Consulting Unavailable GO, ROBERTO Admitting Unavailable MISC, DR LEE Primary Care Unavailable JAMEE HARDIN Consulting Unavailable Sandy Feng Unavailable Crystal Carmona MD Primary Care Provider [phone] PATRICIARAVENEUGENE Referring Unavailable PATRICIA, EUGENE Referring Unavailable RAVEN PATRICIASON Attending Unavailable LENY HALL Attending Unavailable Crystal Carmona MD Primary Care Provider Crystal Carmona MD Primary Care Provider [phone] ZEESHAN WILHELM Attending Unavailable ZEESHAN WILHELM Referring Unavailable CRYSTAL CARMONA Primary Care Unavailable Crystal Carmona MD Primary Care Provider PATRICIA, EUGENE L Referring Unavailable BLUNT, CRYSTAL Primary Care Unavailable PATRICIA, EUGENE L Referring Unavailable BLUNT, CRYSTAL Primary Care Unavailable PATRICIA, EUGENE L Referring Unavailable BLUNT, CRYSTAL Primary Care Unavailable PATRICIA, EUGENE L Admitting Unavailable PATRICIA, EUGENE L Attending Unavailable PATRICIA, EUGENE L Referring Unavailable BLUNT, CRYSTAL Primary Care Unavailable PATRICIA, EUGENE L Referring Unavailable BLUNT, CRYSTAL Primary Care Unavailable PATRICIA, EUGENE L Referring Unavailable BLUNT, CRYSTAL Primary Care Unavailable Crystal Carmona MD Primary Care Provider Ela Flores APRN Attending Provider Ela Flores Attending Unavailable Ela Flores Admitting Unavailable Blunt, Crystal M Primary Care Unavailable Dudley MURRAY, Bimal Hoff Referring Unavailable BLUNT, CRYSTAL Primary Care Unavailable PATRICIAEUGENE CAI L Referring Unavailable BLUNT, CRYSTAL Primary Care Unavailable BLUNT, CRYSTAL Referring Unavailable PATRICIAEUGENE L Referring Unavailable BLUNT, CRYSTAL Primary Care Unavailable BLUNT, CRYSTAL Referring Unavailable BLUNT, CRYSTAL Primary Care Unavailable PATRICIAEUGENE CAI L Referring Unavailable BLUNT, CRYSTAL Primary Care Unavailable PATRICIAEUGENE L Attending Unavailable BLUNT, CRYSTAL Referring Unavailable BLUNT, CRYSTAL Primary Care Unavailable PATRICIAEUGENE L Attending Unavailable BLUNT, CRYSTAL Referring Unavailable BLUNT, CRYSTAL Primary Care Unavailable PATRICIAEUGENE CAI L Attending Unavailable BLUNT, CRYSTAL Referring Unavailable BLUNT, CRYSTAL Primary Care Unavailable PATRICIAEUGENE L Attending Unavailable BLUNT, CRYSTAL Referring Unavailable BLUNT, CRYSTAL Primary Care Unavailable BLUNT, CRYSTAL Referring Unavailable BLUNT, CRYSTAL Primary Care Unavailable Blunt, Crystal M Primary Care Unavailable Blunt, Crystal M Attending Unavailable Blunt, Crystal M Primary Care Unavailable Blunt, Crystal M Attending Unavailable Blunt, Crystal M Primary Care Unavailable Blunt, Crystal M Attending Unavailable Blunt, Crystal M Attending Unavailable Blunt, Crystal M Primary Care Unavailable Blunt, Crystal M Primary Care Unavailable Blunt, Crystal M Attending Unavailable Blunt, Crystal M Primary Care Unavailable Blunt, Crystal M Attending Unavailable Blunt, Crystal M Primary Care Unavailable Blunt, Crystal M Attending Unavailable Blunt, Crystal M Primary Care Unavailable Blunt, Crystal M Attending Unavailable Allergies Allergy ClassificationReported Allergen(s)Allergy TypeDate of OnsetReaction(s) FacilityAcetaminophen (1 source)AcetaminophenDrug Zzimvrq26-95-6476fzmiaq swelling itching eyes [facility]phalospor[facility] (antibiotic) (1 source)CephalexinDrug Qedndpt94-70-8392fr states it made infection worse/ told him it was keflx, rashOur [facility] Of Mercy Hospital - AndersonOpioid Agonists (2 sources)MorphineDrug Mdwbbaq60-62-5826Yxlvovh Reaction, Rash, facial swelling itching eyesOur Lady Of Mercy Hospital - AndersonUnclassified (18 sources)poison jada extract; Translations: [POISON JADA EXTRACT]Allergy to cjizbvipx48-78-1453Xrosrb SwellingOur [facility] Of [facility] (20 sources)Cephalexin; Translations: [cephalexin]Drug Ebrhdhe93-15-0049Loiiqin (qualifier value), Unknown, ItchingOur [facility] Of Mercy [facility] - [facility] (15 sources)oxyCODONE; Translations: [oxycodone]Drug Ctgblez60-85-8700MjdohSalem City Hospital (7 sources)Acetaminophen / oxyCODONE; Translations: [acetaminophen-oxycodone] Drug Cfwqyqz99-57-3269Wjuvhkp (qualifier value), Itching, RashExecutive [facility]rology of [facility] (4 sources)Cephalexin; Translations: [Keflex]Drug Qsrobrn74-19-3138uwptFkaoraMercy Health [facility] Repository (1 source)No Known Medication Allergies; Translations: [No Known Medication Allergies]Propensity to adverse reactions (disorder)[facility] Repository (1 source)Acetaminophen / oxyCODONEDrug AllergyThe [facility] Repository (4 sources)MorphineDrug Zbmtozq25-53-6312Ptngcdx ReactionThe [facility] Repository (1 source)CephalexinDrug AllergyUnkBradley Hospital [facility]di[facility] Other (1 source)MorphineDrug AllergyUnkBradley Hospital Syndi[facility] Other (1 source)poison ivyPropensity to adverse reactionsButler Hospital [facility]di[facility] Other (4 sources)Acetaminophen; Translations: [acetaminophen]Drug Crsdbop50-06-7879 facial swelling itching eyesOur [facility] (1 source)CephalexinDrug Mvjqyiq78-38-8096PtzjopbknOur Lady Of [facility] Repository (1 source)MorphineDrug Vwlbfix51-24-1426HunwrqbhfOur Lady Of [facility] Rep[facility] (1 source)oxyCODONEDrug Jimvaod59-27-7400KmqypsnuhOur Lady Of [facility] Rep[facility] (1 source)Acetaminophen / oxyCODONE; Translations: [Percocet 5/325]Drug Allergy [facility] Repository Medications Current Medications MedicationDrug Class(es)DatesSig (Normalized)Sig (Original)acetaminophen 325 mg / HYDROcodone bitartrate 5 mg oral tablet (20 sources)Opioid AgonistStart: 11-08-0835kbdj 1 tablet by mouth every four hours as needed for painHYDROcodone-acetaminophen (NORCO) 5-325 mg per tablet Take 1 tablet by mouth every 4 (four) hours as needed for pain. 06/30/2024 ActiveStart: 10-24-2023 End: 17-53-4636kcmv 1 tablet by mouth every four hours as needed for pain HYDROcodone-acetaminophen (NORCO) 5-325 mg per tablet take 1 tablet by mouth every 4 hours NEEDED FOR PAIN for 7 days 10/24/2023 01/22/2024 Discontinued (Stop Taking at Discharge)Start: 06-11-2023 End: 49-77-7342ZNXYNenhwtk-acetaminophen (NORCO) 5-325 mg per tablet Indications: Spinal stenosis of cervical region Take 1-2 tablets by mouth every 6 (six) hours as needed for pain for up to 7 days. Max Daily Amount: 8 tablets 56 tablet 0 06/11/2023 06/18/2023 ActiveStart: 06-10-2023 End: 36-90-3489bcdb 1 tablet by mouth every four hours as neededHYDROcodone- acetaminophen (NORCO) 5-325 mg per tablet 1 tabletStart: 78-12-8440Tzvxjov Oral, q6hr, Refill(s) 0 Start Date: 01/22/22 Status: OrderedStart: 49-37-9477djdx 1 tablet by mouth every four to six hours as needed for painHydrocodone- Acetaminophen 5-325 mg Tablet Active 1 TAB PO EVERY 4-6 HOURS as needed for Pain 2021 12:00amStart: 08-18-2019 End: 41-85-9759xwmv 1 tablet by mouth every four hours as needed for pain HYDROcodone-acetaminophen (NORCO) 5-325 mg per tablet Take 1 tablet by mouth every 4 (four) hours as needed for pain. 0 08/18/2019 06/11/2023 Discontinued (Stop Taking at Discharge)Start: 05-13-2017 End: 33-03-1368mndm 1 tablet by mouth every four hours as needed for pain Hydrocodone-Acetaminophen 10-300 mg tablet Discontinued 1 TAB PO Q4H as needed for pain 84 14 May 13, 2017 May 26, 2017 1:00am May 27, 2017 1:03am Start: 05-10-2017 End: 51-24-0720yxel 1 tablet by mouth every six hours as needed for pain Hydrocodone-Acetaminophen 7.5-325 mg Tablet Discontinued 1 TAB PO Q6H as needed for Pain May 10, 2017 1:00am May 13, 2017 4:31pmHYDROcodone- Acetaminophen 5-325 MG (Schedule II Drug) Oral for 10 ActiveAlbuterol Sulfate (Ventolin Hfa) 90 mcg/actuation Hfa Aerosol Inhaler (8 sources)Start: 99-17-8307iwqc 1 puff(s) by inhalation every four to six hours as needed for wheezingAlbuterol Sulfate (Ventolin Hfa) 90 mcg/actuation Hfa Aerosol Inhaler Active 2 PUFF INHALATION EVERY 4-6 HOURS as needed for Shortness Of Breath Or Wheezing May 10, 2017 1:00amStart: 20-61-0753rtli 1 puff(s) by inhalation every four to six hoursAlbuterol Sulfate (Ventolin Hfa) 90 mcg/actuation Hfa Aerosol Inhaler Active 2 PUFF INHALATION EVERY 4-6 HOURS May 10, 2017 12:00amStart: 28-98-5103sqdk 1 puff(s) by inhalation every four to six hoursAlbuterol Sulfate (Ventolin Hfa) 90 mcg/actuation Hfa Aerosol Inhaler Active 2 PUFF INHALATION EVERY 4-6 HOURS May 10, 2017 1:00am aspirin 81 mg delayed release oral tablet (20 sources)Platelet Aggregation Inhibitor, Nonsteroidal Anti-inflammatory Drug Start: 92-10-8486khxh 1 tablet by mouth in the morningaspirin 81 mg Indications: thrombosis prevention after PCI Take 1 tablet (81 mg total) by mouth in the morning. Indications: blood clot prevention following percutaneous coronary intervention. Ok to resume 06/18/23. 01/28/2024 ActiveStart: 46-54-2329ovrh 1 tablet by mouth in the morningaspirin 81 mg Indications: thrombosis prevention after PCI Take 1 tablet (81 mg total) by mouth in the morning. Indications: blood clot prevention following percutaneous coronary intervention. Ok to resume 06/18/23. 01/28/2024 ActiveStart: 30-14-7174sgyc 1 tablet by mouth in the morning aspirin 81 mg Indications: thrombosis prevention after PCI Take 1 tablet (81 mg total) by mouth in the morning. Indications: blood clot prevention following percutaneous coronary intervention. Ok to resume 06/18/23. 01/28/2024Start: 06-18-2023 End: 66-94-8141fbet 1 tablet by mouth in the morningaspirin 81 mg Indications: thrombosis prevention after PCI Take 1 tablet (81 mg total) by mouth in the morning. Indications: blood clot prevention following percutaneous coronary intervention. Ok to resume 06/18/23. 06/18/2023 01/22/2024 DiscontinuedStart: 65-10-5345merv 1 tablet by mouth in the morningaspirin 81 mg Indications: thrombosis prevention after PCI Take 1 tablet (81 mg total) by mouth in the morning. Indications: blood clot prevention following percutaneous coronary intervention. Ok to resume 06/18/23. 0 06/18/2023 ActiveStart: 70-28-5007xjra 1 tablet by mouth in the morningaspirin 81 mg Indications: thrombosis prevention after PCI Take 1 tablet (81 mg total) by mouth in the morning. Indications: blood clot prevention following percutaneous coronary intervention. Ok to resume 06/18/23. 0 06/18/2023Start: 15-24-1878wsvn 1 tablet by mouth once dailyAspirin (Children's Aspirin) 81 mg Tablet,Chewable Active 81 MG PO Daily July 22, 2020 12:00am End: 09-66-1507qogc 1 tablet by mouth in the morningaspirin 81 mg Indications: thrombosis prevention after PCI Take 1 tablet (81 mg total) by mouth in the morning. Indications: blood clot prevention following percutaneous coronary intervention. HOLDING SINCE 05/30/23. 0 06/11/2023 Discontinuedtake 1 tablet by mouth once dailyAspirin 81 81 MG 1 tablet Orally Once a day Activeatorvastatin 10 mg oral tablet (12 sources)HMG-CoA Reductase InhibitorStart: 91-29-9996exid 1 mg by mouth once dailyatorvastatin 10 mg Tab mg tab(s), Oral, Daily, Refills(s) 0 Start Date: 01/22/22 Status: OrderedStart: 07-22-2020 End: 87-86-2096puis 3 tablets by mouth once daily in the eveningAtorvastatin 10 mg Tablet Discontinued 30 MG PO Every evening 90 July 22, 2020 12:00am February 26, 2022 3:07pmStart: 07-22-2020 End: 35-82-7296ctxp 30 mg by mouth once daily in the eveningAtorvastatin Discontinued 30 MG PO Every evening 90 July 22, 2020 12:00am February 26, 2022 3:07pmtake 1 tablet by mouth at bedtimeAtorvastatin Calcium 10 MG Oral Tablet TAKE 1 TABLET AT BEDTIME. Quantity: 90 Refills: 3 Ordered: 18-Jul-2021 Zeeshan Wilhelm DO Activeazithromycin 250 mg oral tablet (1 source)Macrolide AntimicrobialStart: 12-62-3284Wdsedlskvdop 250 MG 2 tablet on the first day, then 1 tablet daily for 4 days Orally Once a day for5 day(s) Dec, Activebenzonatate 100 mg oral capsule (1 source)Non-narcotic AntitussiveStart: 99-73-9548zatp 1 capsule by mouth three times daily as neededTessalon Perles 100 MG 1 capsule as needed Orally Three times a day for 7 days Dec, ActiveBlood-Glucose Sensor (Dexcom G7 Sensor) device (2 sources)Start: 40-23-6313Aghzw-Glucose Sensor (Dexcom G7 Sensor) device Active EACH .ROUTE .MEDSUPPLY July 21, 2024 12:00am As directedBreztri Aerosphere inhalation aerosol (1 source)Start: 86-30-3996vgpx 1 puff(s) by inhalation twice dailyBreztri Aerosphere inhalation aerosol puff(s), Inhalation, BID, Refill(s) 0 Start Date: 01/22/22 Status: Orderedcarisoprodol 350 mg oral tablet (20 sources)Muscle RelaxantStart: 05-21-2019 End: 89-24-4184Nlwfcpzwydnc 350 mg tablet Active MG PO July 21, 2024 12:00am Start: 48-15-5805ycro 1 mg by mouth four times dailycarisoprodol 350 mg Tab mg tab(s), Oral, QID, Refills(s) 0 Start Date: 01/22/22 Status: OrderedStart: 05-10-2017 End: 42-38-4956imzw 1 tablet by mouth twice dailyCarisoprodol 350 mg Tablet Discontinued 350 MG PO Twice daily May 10, 2017 1:00am July 21, 2020 4:35amtake 1 tablet by mouth every twelve hours as neededCarisoprodol 350 MG Oral Tablet TAKE 1 TABLET EVERY 12 HOURS NEEDED. Quantity: 0 Refills: 0 Order ed: 17-Oct-2022 DO Activedapagliflozin 10 mg oral tablet (20 sources)Sodium-Glucose Cotransporter 2 InhibitorStart: 11-02-2021 End: 54-25-2580ihif 1 tablet by mouth once dailyDapagliflozin Propanediol (Farxiga) 10 mg tablet Active 10 MG PO Daily November 02, 2021 12:00am doxycycline hyclate 100 mg oral capsule (3 sources)Tetracycline-class DrugStart: 78-44-9617ltpp 1 capsule by mouth twice dailyDoxycycline Hyclate 100 mg capsule Active 100 MG PO Twice daily 11 01July 19, 2024 12:00amdulaglutide (12 sources)GLP-1 Receptor AgonistStart: 74-07-0073Fmetpifot Pen SubCutaneous, qWeek, Refills(s) 0 Start Date: 01/22/22 Status: OrderedStart: 05-10-2017 Dulaglutide (Trulicity) 1.5 mg/0.5 mL Pen Injector Active 1.5 MG SUBCUT every week May 10, 2017 1:00am every Saturdayfinasteride 5 mg oral tablet (20 sources)5-alpha Reductase InhibitorStart: 11-02-2021 End: 37-60-8696vpov 1 tablet by mouth once dailyFinasteride 5 mg tablet Active 5 MG PO Daily November 02, 2021 12:00amglimepiride 1 mg oral tablet (6 sources)SulfonylureaStart: 86-73-2933mpoo 1 tablet by mouth once daily in the morningGlimepiride (Amaryl) 1 mg tablet Active 1 MG PO Daily February 26, 2022 1:00am Do not take if your blood sugar in the morning is less than 120. hydroCHLOROthiazide 25 mg oral tablet (20 sources)Thiazide DiureticStart: 04-24-2019 End: 96-79-0089jwjk 1 tablet by mouth once dailyhydroCHLOROthiazide (HYDRODIURIL) 25 mg tablet Indications: hypertension Take 1 tablet (25 mg total) by mouth daily Indications: high blood pressure. 04/24/2019 Active3 ml insulin glargine 100 unt/ml pen injector (20 sources)Insulin AnalogStart: 05-28-1469Mlllyht Glargine (Lantus Solostar U- 100 Insulin) 100 unit/mL (3 mL) insulin pen Active UNIT SUBCUT July 21, 2024 12:00amStart: 01-21-2024 End: 94-88-600548 Units, subcutaneous, Daily, First dose on Sat01/21/24 at 1800, Look-alike/sound-alike medication - verify indication for use. Prime with 2 units of insulin prior to administration. Basal (long acting) insulin for subcutaneous administration only. Do not mix with any other insulin. Pre-filled pens stable 28 days at room temperature., Indications: type 2 diabetes mellitus Start: 06-10-2023 End: 47-35-3511dwnukru glargine (LANTUS, SEMGLEE) injection pen 32 UnitsStart: 03-20-2022 End: 26-44-3772Mcjknjd Glargine U-300 Conc (Toujeo Max U-300 Solostar) 300 unit/mL (3 mL) insulin pen Yybcbqekeyeb19 UNIT SUBCUT Daily August 29, 2023 12:00am July 21, 2024 12:01pminject 25 [IU] by subcutaneous injection once daily at dinnerinsulin glargine U-300 conc (TOUJEO MAX U-300 SOLOSTAR) 300 unit/mL (3 mL) insulin pen Inject 25 Unit under the skin Daily before evening meal. 0 ActiveToujeo Max SoloStar 300 UNIT/ML as directed Subcutaneous Active3 ml insulin lispro 100 unt/ml pen injector (3 sources)Insulin AnalogStart: 39-98-8874vamhus 10 [IU] by subcutaneous injection at dinnerinsulin lispro (HumaLOG KwikPen Insulin) 100 unit/mL insulin pen See Instructions, Instructions: INJECT TEN UNITS SUBCUTANEOUSLY (UNDER THE SKIN) WITH evening meal, # 15 mL, 5 Refill(s), Pharmacy: [id number], INJECT TEN UNITS SUBCUTANEOUSLY (UNDER THE SKIN) WITH evening meal, 185.42, cm, 04/04/23 10:20:00 EST, Height, 98.43, kg, 02/26/24 9:58:00 EST, Weight Dosing 02/26/2024 ActiveStart: 01-21-2024 End: 75-00-4822efbrhp 400 mg by subcutaneous injection three times daily at mealtime, then inject 2 [IU] by subcutaneous injection 15 minutes after mealtime 2-10 Units, subcutaneous, 3 times daily with meals, First dose on Sat01/21/24 at 0800, Daytime hyperglycemia dosing. For blood glucose 151-200 mg/dL, give 2 units. For blood glucose 201-250 mg/dL, give 4 units. For blood glucose 251-300 mg/dL, give 6 units. For blood glucose 301-350 mg/dL, give 8 units. For blood glucose 351-400 mg/dL, give 10 units. Give even if NPO or meals skipped. Do NOT give more often then every 4 hours when NPO. Notify prescriber if blood glucose greater than 400 mg/dL.Look-alike/sound-alike medication - verify indication for use. Prime with 2 units of insulin prior to administration. Prandial/supplemental Insulin. Pre-filled pens stable 28 days at room temperature. Insulin lispro should be administered within 15 minutes before or immediately after a meal.lisinopril 2.5 mg oral tablet (20 sources)Angiotensin Converting Enzyme InhibitorStart: 07-22-2020 End: 06-08-8130qrnq 1 tablet by mouth once dailyLisinopril 2.5 mg Tablet Active 2.5 MG PO Daily July 22, 2020 12:00ammeloxicam 15 mg oral tablet (20 sources)Nonsteroidal Anti-inflammatory DrugStart: 48-89-9668kuti 1 tablet by mouth in the morningmeloxicam (MOBIC) 15 mg tablet Take 1 tablet (15 mg total) by mouth in the morning. 03/31/2024 ActiveStart: 07-21-2020 End: 38-74-1282asfx 1 tablet by mouth once dailyMeloxicam 15 mg tablet Active 15 MG PO Daily August 29, 2023 12:00amStart: 07-21-2020 End: 60-80-1647wqqa 15 mg by mouth twice daily15 mg, oral, 2 times daily, First dose on Sat06/10/23 at 2130Meloxicam Not-TakingmethylPREDNISolone 4 mg oral tablet (2 sources)CorticosteroidStart: 96-49-4468igvxrtMXEDLDMvqmgz 4 MG as directed Orally for daily dose take half with breakfast, half with dinner for 6 days Dec, ActiveStart: 27-71-7128Ubxi-Medrol 80 mg 13 Aug, 2015 80 mgmetoprolol tartrate 25 mg oral tablet (20 sources)beta-Adrenergic BlockerStart: 61-16-6708xcuvzrcjcp Refills(s) 0 Start Date: 01/22/22 Status: OrderedStart: 10-07-2021 End: 16-51-2200jygr 0.5 tablet by mouth in the morning, then take 0.5 tablet by mouth at bedtimemetoprolol tartrate (LOPRESSOR) 25 mg tablet Indications: hypertension Take 0.5 tablets (12.5 mg total) by mouth in the morning and 0.5 tablets (12.5 mg total) before bedtime. Indications: high bloodpressure. 10/07/2021 ActiveStart: 07-22-2020 End: 06-52-6844wqkr 1 tablet by mouth twice dailyMetoprolol Tartrate 25 mg Tablet Active 25 MG PO Twice daily 60 July 22, 2020 12:00amnitroglycerin 0.4 mg sublingual tablet (9 sources)Nitrate VasodilatorStart: 06-25-2024 End: 76-06-1779jamusclkllaxy (Nitrostat) 0.4 mg SL tablet Indications: History of PTCA Place 1 tablet (0.4 mg) under the tongue every 5 minutes if needed for chest pain for up to 25 doses. 25 tablet 1 06/25/2024 ActiveNitroglycerin 0.4 mg tablet, sublingual (2 sources)Start: 76-21-4277Wxwaepdtxildv 0.4 mg tablet, sublingual Active MG SUBLINGUAL July 21, 2024 12:00amTiotropium-Olodaterol (20 sources)Anticholinergic, beta2-Adrenergic AgonistStart: 07-21-2024 Tiotropium-Olodaterol (Stiolto Respimat) 2.5-2.5 mcg/actuation mist Active INHALATION July 21, 2024 12:00amStart: 01-21-2024 End: 33-45-2389xchv 2 puff(s) by mouth once daily2 puff, oral, Daily, First dose on Sat01/21/24 at 0900Start: 06-11-2023 End: 60-49-5702zoma 2 puff(s) by mouth once daily2 puff, oral, Daily, First dose on Sat06/11/23 at 0900Stiolto Respimat 2.5-2.5 mcg/actuation mist inhaler Inhale 2 Inhalations once daily. ActiveoxyCODONE hydrochloride 5 mg oral tablet (4 sources)Opioid AgonistStart: 01-22-2024 End: 40-97-4983vagZQKNFK (ROXICODONE) 5 mg immediate release tablet Indications: Unspecified mononeuropathy of bilateral lower limbs Take 1-2 tablets (5-10 mg total) by mouth every 6 (six) hours as needed (for pain1-08/01-) for up to 7 days. Max Daily Amount: 40 mg 56 tablet 01/22/2024 01/29/2024 ActiveStart: 01-20-2024 End: 68-79-3682egao 1 tablet by mouth every six hours as neededoxyCODONE (ROXICODONE) immediate release tablet 5 mgPantoprazole 40 mg tablet,delayed release (DR/EC) (3 sources)Start: 39-59-2817qnkf 1 tablet by mouth once dailyPantoprazole 40 mg tablet,delayed release (DR/EC) Active 40 MG PO Daily August 29, 2023 12:00am predniSONE 20 mg oral tablet (3 sources)Start: 34-23-2392rjhv 2 tablets by mouth once dailyPrednisone 20 mg tablet Active 20 MG PO .COMPLEX July 19, 2024 12:00am Take 2 tabs po daily x5 daysrosuvastatin calcium 20 mg oral tablet (20 sources)HMG-CoA Reductase InhibitorStart: 02-26-2022 End: 66-48-0639qpzx 1 tablet by mouth once daily, then take 0.5 tablet by mouth once dailyRosuvastatin (Crestor) 20 mg tablet Active 20 MG PO As Directed February 26, 2022 1:00am Take 1tablet daily for 2 months then half a tablet dailysildenafil 50 mg oral tablet (1 source)Phosphodiesterase 5 InhibitorStart: 06-25-2024 End: 69-05-4942zyas 1 tablet by mouth once daily as neededsildenafil (Viagra) 50 mg tablet Indications: Drug-induced erectile dysfunction Take 1 tablet (50 mg) by mouth once daily as needed for erectile dysfunction. 30 tablet 06/25/2024 07/25/2024 Activetamsulosin hydrochloride 0.4 mg oral capsule (20 sources)alpha-Adrenergic BlockerStart: 11-02-2021 End: 40-14-2619hsbe 1 capsule by mouth once dailyTamsulosin 0.4 mg capsule Active 0.4 MG PO Daily November 02, 2021 12:00amticagrelor 90 mg oral tablet (20 sources)Start: 07-22-2020 End: 81-23-9274xtam 1 tablet by mouth twice dailyTicagrelor (Brilinta) 90 mg Tablet Active 90 MG PO Twice daily 60 February 26, 2022 1:00am Completed/Discontinued Medications MedicationDrug Class(es)DatesSig (Normalized)Sig (Original)acetaminophen 325 mg oral tablet (1 source)Start: 01-20-2024 End: 23-77-8049fnkg 1 tablet by mouth every six yoiaw811 mg, oral, Every 6 hours, First dose on Sat01/20/24 at 2000Advair Diskus 250-50 MCG/DOSE (1 source)Advair Diskus 250-50 MCG/DOSE Inhalation for 30 Not-Takingalbuterol 0.83 mg/ml inhalation solution (20 sources)beta2-Adrenergic AgonistStart: 01-20-2024 End: 69-54-0455cawp 2.5 mg by inhalation every six hours as needed for wheezing and dyspneaStart: 06-10-2023 End: 30-81-1823igdq 2.5 mg by inhalation every six hours as needed for wheezing and dyspnea2.5 mg, nebulization, Every 6 hours PRN, wheezing, shortness of breath, Starting on Sat06/10/23 at 2129, Implement INPATIENT/ED Bronchodilator Clinical Practice Guidelines? Yes, Document: \[email or web address]\[email or web address]\EPIC_Reference\Orders\Respiratory Care Guidelines\CPG Bronchodilator 2020.pdfStart: 05-28-2022 End: 26-34-5567eraf 2 puff(s) by inhalation every four hours as needed for wheezingalbuterol (VENTOLIN HFA) 90 mcg/actuation inhaler Indications: acute asthma attack Inhale 2 puffs every 4 (four) hours as needed for wheezing or shortness of breath Indications: asthma attack. Uses most days 05/28/2022 Active Start: 20-46-2982heuo 2 puff(s) by mouth every four to six hoursalbuterol (VENTOLIN HFA) 90 mcg/actuation inhaler See Instructions, Instructions: inhale 2 puffs bymouth and INTO THE LUNGS every 4 to 6 hours if needed, # 36 gm, 5 Refill(s), Pharmacy: [facility] #[id number], inhale 2 puffs by mouth and INTO THE LUNGS every 4 to 6 hours if needed 0 05/28/2022 ActiveStart: 62-35-5532jscyebxvj Refills(s) 0 Start Date: 01/22/22 Status: Orderedtake 1 puff(s) by inhalation every four hoursalbuterol 90 mcg/actuation inhaler Inhale 1 puff every 4 hours if needed. ActiveVentolin HFA 108 (90 Base) MCG/ACT Inhalation for 30 Activetake 1-2 puff(s) by inhalation every four to six hours as neededAlbuterol Sulfate HFA 108 (90 Base) MCG/ACT Inhalation Aerosol Solution INHALE 1 TO 2 PUFFS EVERY 4TO 6 HOURS NEEDED. Quantity: 3 Refills: 3 Ordered: 18-Jul-2021 DO Activetake 1-2 puff(s) by inhalation every four to six hours as neededAlbuterol Sulfate HFA 108 (90 Base) MCG/ACT Inhalation Aerosol Solution INHALE 1 TO 2 PUFFS EVERY 4TO 6 HOURS NEEDED. Quantity: 3 Refills: 3 Ordered: 18-Jul-2021 DO Active amitriptyline hydrochloride 50 mg oral tablet (20 sources)Tricyclic AntidepressantStart: 12-19-2018 End: 75-27-7687jjon 1 tablet by mouth at bedtimeAmitriptyline 50 mg tablet Discontinued 50 MG PO Bedtime July 21, 2020 12:00am February 26, 2022 3:07pm amoxicillin 500 mg / clavulanate 125 mg oral tablet (6 sources)Penicillin-class AntibacterialStart: 02-25-2022 End: 71-23-6647scuu 1 tablet by mouth every eight hoursAmoxicillin-Pot Clavulanate 500-125 mg tablet Discontinued 0 .ROUTE .COMPLEX February 25, 2022 1:00am August 29, 2023 1:29pm take 1 tablet by mouth every 8 hours for 7 days apremilast 30 mg oral tablet (6 sources) End: 43-04-2828mldq 1 tablet by mouth in the morning, then take 1 tablet by mouth at bedtimeapremilast (OTEZLA) 30 mg tablet Take 1 tablet (30 mg total) by mouth in the morning and 1 tablet (30 mg total) before bedtime. 0 06/06/2023 Discontinued (Therapy completed)betamethasone 0.5 mg/ml topical cream (8 sources)CorticosteroidStart: 05-10-2017 End: 68-95-4976Rzxoimqokccsh Dipropionate 0.05 % Cream Discontinued 1 APPLIC TOPICAL Daily as needed for Skin Irritation May 10, 2017 1:00am July 21, 2020 4:35ambisacodyl 10 mg rectal suppository (1 source)Stimulant LaxativeStart: 01-22-2024 End: actuat budesonide 0.16 mg/actuat / formoterol fumarate 0.0048 mg/actuat / glycopyrrolate 0.009 mg/actuat metered dose inhaler (18 sources)Corticosteroid, beta2-Adrenergic AgonistStart: 02-25-2022 End: 16-49-6199loyw 2 puff(s) by mouth twice pfqkkYjjomwpulw-Vlqqxoxc-Zgbgeqsyio (Breztri Aerosphere) 160-9-4.8 mcg/actuation HFA aerosol inhaler Discontinued 0 .ROUTE .COMPLEX February 25, 2022 1:00am July 21, 2024 12:01pm INHALE 2 PUFFS BY MOUTH TWICE A DAY AND RINSE MOUTH AND THROAT AFTER USE End: 08-89-3331bjfl 2 puff(s) by inhalation twice daily ksaauuydwx-dvnebzyn-cmsgytxwxc (Breztri Aerosphere) 160-9-4.8 mcg/actuation HFA aerosol inhaler Inhale 2 puffs 2 times a day. 06/25/2024 Discontinued (Discontinued by another clinician) End: 42-99-3045lpbc 1 puff(s) by inhalation in the morning ytkzttsjas-gyiusixg-xlzxnkidgi (BREZTRI AEROSPHERE) 160-9-4.8 mcg/actuation HFA aerosol inhaler Inhale 1 puff in the morning. 0 06/06/2023 Discontinued (Therapy completed)take 2 puff(s) by inhalation twice dailyBreztri Aerosphere 160-9-4.8 MCG/ACT 2 puffs Inhalation Twice a day Activecalcium chloride 0.0014 meq/ml / potassium chloride 0.004 meq/ml / sodium chloride 0.103 meq/ml / sodium lactate 0.028 meq/ml injectable solution (1 source)Start: 06-10-2023 End: 53-00-1778sciwywby ringers infusioncanagliflozin 300 mg oral tablet (17 sources)Sodium-Glucose Cotransporter 2 InhibitorStart: 07-15-2019 End: 61-30-5449unoh 1 tablet by mouth once dailyCanagliflozin (Invokana) 300 mg tablet Discontinued 300 MG PO Daily July 21, 2020 12:00am 2021 8:26pmclindamycin 300 mg oral capsule (18 sources)Lincosamide AntibacterialStart: 06-05-2023 End: 30-68-2551iwtn 1 capsule by mouth three times dailyClindamycin Hcl 300 mg capsule Discontinued 300 MG PO Three times daily 21 01June 05, 2023 12:00am August 29, 2023 1:33pm stop the augmentin1 ml dexamethasone phosphate 4 mg/ml injection (7 sources)CorticosteroidStart: 06-10-2023 End: 06-92-7956xmty 4 mg intravenously every six hours4 mg, intravenous, Every 6 hours, First dose on Sat06/10/23 at 2330, May alter blood glucose or insulin requirements. Look-alike/sound-alike medication - verify indication for use. Start: 02-25-2022 End: 55-33-0220uxag 2 tablets by mouth once dailyDexamethasone 4 mg tablet Discontinued 0 .ROUTE .COMPLEX February 25, 2022 1:00am February 26, 2022 3:07pm take 2 tablets by mouth once daily for 3 daysdexlansoprazole 60 mg delayed release oral capsule (18 sources)Proton Pump InhibitorStart: 02-23-2019 End: 11-10-2223dmzg 1 capsule by mouth in the morningDEXILANT 60 mg capsule Indications: gastroesophageal reflux disease Take 1 capsule (60 mg total) by mouth in the morning. Indications: gastroesophageal reflux disease. 4 02/23/2019 06/10/2023 Discontinued (Alternate therapy)Dexlansoprazole (Dexilant) 60 mg capsule,biphase delayed releas (8 sources)Start: 07-21-2020 End: 02-07-1919vusp 1 capsule by mouth once dailyDexlansoprazole (Dexilant) 60 mg capsule,biphase delayed releas Discontinued 60 MG PO Daily July 21, 2020 12:00am August 29, 2023 1:34pmStart: 28-68-8600meeb 1 capsule by mouth once daily Dexlansoprazole (Dexilant) 60 mg capsule,biphase delayed releas Active 60 MG PO Daily July 20, 2020 11:00pmStart: 95-20-9978klyw 1 capsule by mouth once dailyDexlansoprazole (Dexilant) 60 mg capsule,biphase delayed releas Active 60 MG PO Daily July 21, 2020 12:00amdocusate sodium 50 mg / sennosides, detention 8.6 mg oral tablet (1 source)Start: 01-21-2024 End: 51-57-3976ibfq 1 tablet by mouth twice daily for diarrhea, then take 1 tablet by mouth once daily for diarrhea1 tablet, oral, 2 times daily, First dose on Sat01/21/24 at 0900, Start Post-Op Day 1: Hold for diarrhea1 ml fentaNYL 0.05 mg/ml injection (4 sources)Opioid AgonistStart: 01-20-2024 End: 82-63-7277vmtt 25 ug intravenously every two hours as needed for painStart: 01-20-2024 End: 42-38-664963 mcg, intravenous, Every 5 min PRN, Pain Scale 6-10, Starting on Sat01/20/24 at 1621, PACU (only), Up to a maximum dose of 150 mcg. Look-alike/sound-alike medication - verify indication for use.Start: 06-10-2023 End: 73-00-1432yfdr 25 ug intravenously every two hours as needed for pain25 mcg, intravenous, Every 2 hour PRN, severe pain - pain scale 7-10, Starting on Sat06/10/23 at 2129, For severe pain unresponsive to oral pain medications, breakthrough pain, or patients unable to tolerate oral medications. Look-alike/sound-alike medication - verify indication for use.Start: 06-10-2023 End: 93-77-9903evfheGRA (SUBLIMAZE) injection 50 mcgfluticasone propionate 0.05 mg/actuat metered dose nasal spray (1 source)CorticosteroidStart: 16-85-7411ohps 1 spray(s) nasal route once daily Fluticasone Propionate 50 MCG/ACT 1 spray in each nostril Nasally Once a day for 30 day(s) Jan, Not-TakingFluticasone Propion-Salmeterol (16 sources)Corticosteroid, beta2-Adrenergic AgonistStart: 07-21-2020 End: 50-42-6587Bbatklwfbfk Propion-Salmeterol (Advair Diskus) 250-50 mcg/dose blister with device Discontinued INHALATION July 20, 2020 11:00pm July 21, 2020 3:37amStart: 07-21-2020 End: 11-43-5838Picujvcilik Propion-Salmeterol (Advair Diskus) 250-50 mcg/dose blister with device Discontinued INHALATION July 21, 2020 12:00am July 21, 2020 4:37amStart: 05-10-2017 End: 75-54-2595Fxmukqmawer Propion-Salmeterol (Advair Diskus) 250-50 mcg/dose Blister With Device Discontinued 1 INH INHALATION Daily May 10, 2017 12:00am November 02, 2021 7:26pmStart: 05-10-2017 End: 87-67-0727Efeqbenhcvh Propion-Salmeterol (Advair Diskus) 250-50 mcg/dose Blister With Device Discontinued 1 INH INHALATION Daily May 10, 2017 1:00am November 02, 2021 8:26pmglucagon (rdna) 1 mg injection (1 source)Antihypoglycemic AgentStart: 01-21-2024 End: mg, intramuscular, As needed, low blood sugar, blood glucose less than 70 mg/dL and unconscious or NPO without IV access., Starting on Sat01/21/24 at 0609, If conscious and not NPO, immediately follow with meal tray or high protein (7Grams) snack if tray not available. If NPO, initiate IV 5% Dext kitty/Water at 100 mL/hr and contact prescriber for additional orders. If blood glucose is not greater than 70 mg/dL after initial treatment, repeat treatment. 50 ml glucose 500 mg/ml prefilled syringe (2 sources)Start: 01-21-2024 End: g, oral, As needed, low blood sugar, blood glucose less than 70 mg/dL, Starting on Sat01/21/24 at 0609, If patient conscious and taking PO. If blood glucose is not greater than 70 mg/dL after initial treatment, repeat treatment.Start: 01-21-2024 End: mL, intravenous, As needed, low blood sugar, blood glucose less than 70 mg/dL and unconscious orNPO with IV access, Starting on Sat01/21/24 at 0609, Push over 1-3 minutes STAT. If conscious and not NPO, immediately follow with meal tray or high protein (7 grams) snack if tray not available. IfNPO, initiate 5% dextrose in water at 100 mL/hr and contact prescriber for additional orders. If blood glucose is not greater than 70 mg/dL after initial treatment, repeat treatment. VESICANT (RED) Warning: HYPERTONIC solution.1 ml heparin sodium, porcine 5000 unt/ml injection (2 sources)Unfractionated Heparin, Anti-coagulantStart: 01-21-2024 End: 45,000 Units, subcutaneous, Every 12 hours scheduled, First dose on Sat01/21/24 at 2100, Creatinineclearance less than 10 mL/min, immediate post-op patient, or increased risk of bleeding, weight less than 50 kg, age greater than 85 years. Notify prescriber if INR greater than 1.9, hemoglobin less than 10 mg/dL, aPTT greater than 40 seconds, and/or platelet count less than 100,000/mm Look-alike/sound-alike medication - verify indication for use. Observe for bleeding.Start: 06-11-2023 End: 45,000 Units, subcutaneous, Every 12 hours scheduled, First dose on Sat06/11/23 at 2100, Creatinine clearance less than 10 mL/min, immediate post-op patient, or increased risk of bleeding, weight lessthan 50 kg, age greater than 85 years. Notify prescriber if INR greater than 1.9, hemoglobin less than 10 mg/dL, aPTT greater than 40 seconds, and/or platelet count less than 100,000/mm Look-alike/sound-alike medication - verify indication for use. Observe for bleeding.1 ml hydrALAZINE hydrochloride 20 mg/ml injection (1 source)Arteriolar VasodilatorStart: 01-20-2024 End: mg, intravenous, Every 10 min PRN, high blood pressure, systolic blood pressure greater than 160 mmHg, Starting on Sat01/20/24 at 1621, PACU (only), Maximum dose of hydrALAZINE (APRESOLINE) is 20 mg while in PACU Look-alike/sound-alike medication - verify indication for use. Administer IV doses as a slow IV push; maximum rate: 5 mg/minute.hydroCHLOROthiazide 12.5 mg / lisinopril 10 mg oral tablet (9 sources)Thiazide Diuretic, Angiotensin Converting Enzyme InhibitorStart: 05-10-2017 End: 66-56-2002qcnd 1 tablet by mouth once dailyLisinopril-Hydrochlorothiazide 10-12.5 mg Tablet Discontinued 1 TAB PO Daily May 10, 2017 1:00am July 21, 2020 4:35amLisinopril-hydroCHLOROthiazide 10-12.5 MG Oral for 30 Not-Taking1 ml HYDROmorphone hydrochloride 1 mg/ml injection (1 source)Opioid AgonistStart: 06-10-2023 End: 61-23-4090IODVZtistofkv (PF) (DILAUDID) injection 0.4 mginsulin, regular, human 100 unt/ml injectable solution (3 sources)InsulinStart: 01-20-2024 End: Units, intravenous, Once, On Sat01/20/24 at 1800, For 1 dose, PACU (only), Look-alike/sound-alike medication - verify indication for use. Prandial/supplemental insulin. Stable for 28 days at roomtemperature.Start: 06-10-2023 End: 22-04-7859hgffjjx regular (HumuLIN R,NovoLIN R) injection 5 Unitslabetalol hydrochloride 5 mg/ml injectable solution (1 source)beta-Adrenergic BlockerStart: 01-20-2024 End: mg, intravenous, Every 5 min PRN, high blood pressure, systolic blood pressure greater than 160 mmHg and heart rate greater than 60 beats per minute, Starting on Sat01/20/24 at 1621, PACU (only), Maximum dose of labetalol (TRANDATE) is 20 mg while in PACU Look-alike/sound-alike medication - verify indication for use.magnesium hydroxide 80 mg/ml oral suspension (1 source)Start: 01-22-2024 End: 43-79-6581vfbMWORLD hydrochloride 500 mg oral tablet (20 sources)BiguanideStart: 01-21-2024 End: 86-42-3589567 mg, oral, 2 times daily with meals, First dose on Sat01/21/24 at 0800, Hold dose and notify prescriber if blood glucose is less than 100 mg/dL or patient status has changed to NPO. Look-alike/sound-alike medication - verify indication for use. May alter blood glucose or insulin requirements. Metformin and use of contrast media will be reviewed according to Metformin and Metformin ContainingMedications and Contrast Media policy., Indications: type 2 diabetes mellitusStart: 06-11-2023 End: 50-88-1484692 mg, oral, 2 times daily with meals, First dose on Sat06/11/23 at 0800, Hold dose and notify prescriber if blood glucose is less than 100 mg/dL or patient status has changed to NPO. Look-alike/sound-alike medication - verify indication for use. May alter blood glucose or insulin requirements. Met formin and use of contrast media will be reviewed according to Metformin and Metformin Containing Medications and Contrast Media policy., Indications: type 2 diabetes mellitusStart: 80-96-8508aypadugvm Oral, Refills(s) 0 Start Date: 01/22/22 Status: OrderedStart: 97-98-0138hbao 1 tablet by mouth twice daily Metformin 500 mg Tablet Active 500 MG PO Twice daily May 10, 2017 1:00am On Hold: Resume on 02/28/22.take 1 tablet by mouth twice dailymetFORMIN XR 500 mg 24 hr tablet Take 1 tablet (500 mg) by mouth 2 times a day. Active2 ml midazolam 1 mg/ml cartridge (3 sources)BenzodiazepineStart: 01-20-2024 End: mg, intravenous, As needed, anxiety, Starting on 01/20/24 at 1224, For 2 doses, Pre-op, May repeat in 10 minutes, if needed, if original midazolam (VERSED) ineffective, Indication: Other, Indication: anxietyStart: 06-10-2023 End: 20-54-2908kjewffevf (PF) (VERSED) 1 mg/mL injection - Pyxis Override Pull Start: 06-10-2023 End: 25-43-9694jozpzlswn (PF) (VERSED) injection 2 mgMulti Vitamin Oral Tablet (6 sources)take 1 tablet by mouth once dailyMulti Vitamin Oral Tablet TAKE 1 TABLET DAILY. Quantity: 0 Refills: 0 Ordered: 18-Jul-2021 DO Activemultivit- minerals/folic acid (MULTIVITAMIN GUMMIES ORAL) (6 sources) End: 89-44-3751ulct 1 tablet by mouth in the morningmultivit-minerals/folic acid (MULTIVITAMIN GUMMIES ORAL) Take 1 tablet by mouth in the morning. 0 06/06/2023 Discontinued (Therapy completed)take 1 tablet by mouth in the morningmultivit- minerals/folic acid (MULTIVITAMIN GUMMIES ORAL) Take 1 tablet by mouth in the morning. 0 ActiveMultivitamin preparation (5 sources)Start: 07-21-2020 End: 98-66-8035szve 1 tablet by mouth once dailyMultivitamin Discontinued 1 TAB PO Daily July 20, 2020 11:00pm November 02, 2021 7:26pmStart: 07-21-2020 End: 54-77-7573efkf 1 tablet by mouth once dailyMultivitamin Discontinued 1 TAB PO Daily July 21, 2020 12:00am November 02, 2021 8:26pmMultivitamin Tablet (3 sources)Start: 07-21-2020 End: 19-22-2012woyi 1 tablet by mouth once dailyMultivitamin Tablet Discontinued 1 TAB PO Daily July 21, 2020 12:00am November 02, 2021 8:26pm24 hr nicotine 0.875 mg/hr transdermal system (11 sources)Cholinergic Nicotinic AgonistStart: 06-11-2023 End: 11-68-4381mkjbr 1 dose transdermal route once dailynicotine (NICODERM CQ) 21 mg/24 hr Indications: Spinal stenosis of cervical region Place 1 patch onthe skin daily. 7 patch 06/11/2023 01/06/2024 DiscontinuedNON FORMULARY (7 sources) End: 92-78-5805jrke 50 ug by mouth in the morningNON FORMULARY Take 50 mcg by mouth in the morning. Med Name: Prevagen 50 mcg Holding for surgery 06/06/23. 0 06/11/2023 Discontinued (Stop Taking at Discharge)take 50 ug by mouth in the morningNON FORMULARY Take 50 mcg by mouth in the morning. Med Name: Prevagen 50 mcg Holding for surgery 06/06/23. 0 Activetake 50 ug by mouth in the morningNON FORMULARY Take 50 mcg by mouth in the morning. Med Name: Prevagen 50 mcg. 0 Activenystatin 671007 unt/ml topical cream (8 sources)Polyene AntifungalStart: 05-10-2017 End: 66-95-0436Migofxqs 100,000 unit/gram Cream Discontinued 1 APPLIC TOPICAL Twice daily as needed for Skin Irritation May 10, 2017 1:00am July 21, 2020 4:35am2 ml ondansetron 2 mg/ml injection (2 sources)Serotonin-3 Receptor AntagonistStart: 01-20-2024 End: 49-16-6064jrjn 4 mg intravenously every six hours as needed for nausea and vomitingStart: 06-10-2023 End: 85-74-2422vurq 4 mg intravenously every six hours as needed for nausea and vomiting4 mg, intravenous, Every 6 hours PRN, nausea, vomiting, Starting on Sat06/10/23 at 2129, Administerover 2-5 minutes.pantoprazole 40 mg delayed release oral tablet (20 sources)Proton Pump InhibitorStart: 01-20-2024 End: 65-05-888341 mg, oral, 2 times daily, First dose on Sat01/20/24 at 2100, Look-alike/sound-alike medication -verify indication for use. If patient is receiving enteral feeding, consider alternative PPI or continue IV pantoprazole until the delayed-release tablet can be taken orally, Indication: GERDStart: 16-70-3241zbrb 40 mg by mouth once dailyPantoprazole Active 40 MG PO Daily August 29, 2023 12:00amStart: 06-10-2023 End: 66-07-188466 mg, oral, 2 times daily, First dose on Sat06/10/23 at 2130, Look-alike/sound-alike medication - verify indication for use. If patient is receiving enteral feeding, consider alternative PPI or continue IV pantoprazole until the delayed-release tablet can be taken orally, Indication: GERDStart: 05-10-2017 End: 57-37-9234scsg 1 tablet by mouth once daily at bedtimePantoprazole 40 mg Tablet,Delayed Release (Dr/Ec) Discontinued 40 MG PO Daily at bedtime May 10, 2017 1:00am July 21, 2020 4:35ampregabalin 75 mg oral capsule (20 sources)Start: 01-20-2024 End: 63-65-0636qfhd 150 mg by mouth twice mg, oral, 2 times daily, First dose on Sat01/20/24 at 2100, Look-alike/sound-alike medication.Verify indication for useStart: 06-10-2023 End: 79-15-1917dwrl 150 mg by mouth twice icljy543 mg, oral, 2 times daily, First dose on Sat06/10/23 at 2130, Look-alike/sound-alike medication. Verify indication for useStart: 04-29-2019 End: 15-50-2409frwa 1 capsule by mouth three times dailypregabalin (LYRICA) 150 mg capsule Indications: Disc displacement, lumbar Take 1 capsule (150 mg total) by mouth 3 (three) times a day. 90 capsule 1 04/29/2019 ActiveStart: 05-10-2017 End: 08-63-8372ifvh 1 capsule by mouth twice dailyPregabalin 150 mg capsule Active 150 MG PO Twice daily July 21, 2020 12:00amtake 1 capsule by mouth every twenty-four hoursPregabalin 150 MG 1 capsule Orally Once a day Active Lyrica Not-TakingraNITIdine 300 mg oral tablet (12 sources)Histamine-2 Receptor AntagonistStart: 07-21-2020 End: 84-29-7373tlqs 1 tablet by mouth at bedtimeRanitidine Hcl 300 mg Tablet Discontinued 300 MG PO Bedtime July 21, 2020 12:00am [place] 11th, 2022 8:26pm Ranitidine HCl Not-TakingraNITIdine HCl 300 MG CAPS TAKE 1 CAPSULE AT BEDTIME NIGHTLY. Quantity: 0 Refills: 0 Ordered: 18-Jul-2021 DO Activerisankizumab (6 sources)Start: 04-16-2019 End: 09-01-2885SMJYOIY 150mg/1.66mL(75 mg/0.83 mL x2) syringe kit Indications: moderate to severe plaque psoriasisIndications: moderate to severe plaque psoriasis. 0 04/16/2019 06/06/2023 Discontinued (Therapy completed)Start: 60-56-0097CPPLPDN 150mg/1.66mL(75 mg/0.83 mL x2) syringe kit Indications: moderate to severe plaque psoriasisIndications: moderate to severe plaque psoriasis. 0 04/16/2019 Active0.25 mg, 0.5 mg dose 1.5 ml semaglutide 1.34 mg/ml pen injector (3 sources)Ozempic (0.25 or 0.5 MG/DOSE) 2 MG/1.5ML Subcutaneous Solution Pen- injector as directed Quantity: 0Refills: 0 Ordered: 18-Jul-2021 DO Uxmjho4986 ml sodium chloride 9 mg/ml injection (2 sources)Start: 01-20-2024 End: 64-95-4175tuvv 75 mL intravenously every hour75 mL/hr, intravenous, Continuous, Starting on Sat01/20/24 at 2000, For 12 hoursStart: 06-10-2023 End: 82-46-7408wdta 75 mL intravenously every hour75 mL/hr, intravenous, Continuous, Starting on Sat06/10/23 at 2130, For 12 hourssulfamethoxazole 800 mg / trimethoprim 160 mg oral tablet (8 sources)Dihydrofolate Reductase Inhibitor Antibacterial, Sulfonamide AntimicrobialStart: 05-13-2017 End: 02-37-8723qnzn 1 tablet by mouth every twelve hoursSulfamethoxazole- Trimethoprim (Bactrim Ds) 800-160 mg Tablet Discontinued 1 TAB PO Q12H 2017 1:00am July 21, 2020 4:35amtadalafil 5 mg oral tablet (8 sources)Phosphodiesterase 5 InhibitorStart: 07-21-2020 End: 60-97-9756dmux 1 tablet by mouth once dailyTadalafil 5 mg tablet Discontinued 5 MG PO Daily July 21, 2020 12:00am November 02, 2021 8:26pm On Hold: Discuss risk and benefit ratio with your doctor before resumption. Triamcinolone (2 sources)CorticosteroidStart: 28-10-2179WZOQOHZ - 10 mg Sep, 40 mg Start: 52-91-3848VHUVUJB - 10 mg Nov, 40 mgvancomycin (VANCOCIN) 1,000 mg in sodium chloride 0.9 % 250 mL IVPB-MBP (4 sources)Start: 01-21-2024 End: 69-80-4004qwnd 1000 mg intravenously every twelve hours1,000 mg, intravenous, at 250 mL/hr, Administer over 60 Minutes, Every 12 hours, First dose on Sat01/21/24 at 0030, For 1 dose, Pharmacy to adjust per renal function; Administer 12 hours after pre-op dose for total of 2 doses including pre-op dose; Infuse all doses within 24 hours of initial dose.For patient less than 100 kg. VESICANT (YELLOW) ADD-VANTAGE/MBP- Discard 24 hours after activating; dissolve drug prior to administration, Indication: Surgical prophylaxisStart: 01-20-2024 End: ,000 mg, intravenous, at 250 mL/hr, Administer over 60 Minutes, Every 12 hours, First dose on Sat01/20/24 at 1200, For 1 dose, Pre-op, Pre Operative Prophylactic Antibiotic to be dosed by the pharmacy morning of surgery VESICANT (YELLOW) ADD-VANTAGE/MBP- Discard 24 hours after activating; diss olve drug prior to administration, Indication: Surgical prophylaxisStart: 06-11-2023 End: 82-73-4183onlj 1000 mg intravenously every twelve hours1,000 mg, intravenous, at 250 mL/hr, Administer over 60 Minutes, Every 12 hours, First dose on Sat06/11/23 at 0430, For 1 dose, Pharmacy to adjust per renal function; Administer 12 hours after pre-opdose for total of 2 doses including pre-op dose; Infuse all doses within 24 hours of initial dose. For patient less than 100 kg. VESICANT (YELLOW) ADD-VANTAGE/MBP- Discard 24 hours after activating; dissolve drug prior to administration, Indication: Surgical prophylaxisStart: 06-10-2023 End: 49-86-0631uwkiyxubga (VANCOCIN) 1,000 mg in sodium chloride 0.9 % 250 mL IVPB-MBP Problems Active Problems Problem ClassificationProblemDateDocumented DateEpisodic/ChronicAcute myocardial infarction (20 sources)Myocardial infarction; Translations: [Acute myocardial infarction of unspecified site, episode of care unspecified]Onset: [id number] ChronicComment on above:Problem List clean-up per request of Phys. EHR Cmte Asthma (3 sources)Exacerbation of moderate persistent asthma; Translations: [Moderate persistent asthma with (acute) exacerbation]91-66-8181WcfrjykEomxtns obstructive pulmonary disease and bronchiectasis (6 sources)Chronic obstructive lung disease; Translations: [Chronic airway obstruction, not elsewhere classified]Onset: 228274-22-1845BollijsQzluhzql atherosclerosis and other heart disease (20 sources)Coronary arteriosclerosis; Translations: [Coronary atherosclerosis of unspecified type of vessel, mcgrath or graft]Onset: 090519-71-2921 ChronicComment on above:Problem List clean-up per request of Phys. EHR Cmte Coronary atherosclerosis and other heart disease (3 sources)Presence of coronary angioplasty implant and graft; Translations: [Coronary angioplasty status]Onset: 15-12-6614GldxjvbpKsturrju mellitus with complications (1 source)Type 2 diabetes mellitus with hyperglycemia; Translations: [TYPE 2 DM W/HYPERGLYCEMIA]Onset: 90-48-9102ZnwbloaErpxihdr mellitus without complication (20 sources)Diabetes mellitus; Translations: [Diabetes mellitus without mention of complication, type II or unspecified type, not stated as uncontrolled]Onset: 040977-36-0018FpsqeulCwzcekk on above:Problem List clean-up per request of Phys. EHR CmteDiseases of white blood cells (11 sources)Leukocytosis; Translations: [Elevated white blood cell count, unspecified]Onset: 420215-04-1402VnrnlyhAxacmpe on above:Problem List clean-up per request of Phys. EHR CmteDisorders of lipid metabolism (20 sources)Hyperlipidemia; Translations: [Other and unspecified hyperlipidemia] Onset: 627023-61-9986OsjcoutQaoovty on above:Problem List clean-up per request of Phys. EHR CmteDisorders of teeth and jaw (2 sources)Dental caries, unspecified; Translations: [Dental caries, unspecified]52-58-6344RbpcplgjC Codes: Natural/environment (1 source)Exposure to other specified factors, initial encounter; Translations: [EXPOSURE OTHER SPEC FACTORS INITIAL]Onset: 67-58-3633PmmmhoabTktuppozce disorders (20 sources)Gastroesophageal reflux disease; Translations: [Gastro-esophageal reflux disease without esophagitis]Onset: 175199-74-6624VtdovqfHxzyxfd on above:Problem List clean-up per request of Phys. EHR CmteEssential hypertension (20 sources)Hypertensive disorder; Translations: [Unspecified essential hypertension]Onset: 392543-02-4438QviebdvIozczgf on above:Problem List clean-up per request of Phys. EHR CmteFever of unknown origin (11 sources)Fever; Translations: [Fever, unspecified]84-78-9200DjsflhpaJqwdznq on above:Problem List clean-up per request of Phys. EHR CmteGastritis and duodenitis (10 sources)Duodenitis; Translations: [Duodenitis without bleeding]11-03-2021 EpisodicComment on above:Problem List clean-up per request of Phys. EHR Cmte Hyperplasia of prostate (20 sources)Benign prostatic hyperplasia with lower urinary tract symptoms; Translations: [Nocturia due to benign prostatic hypertrophy]Onset: 01-10-2022 00-33-3682GybemtwZzttiet and fatigue (1 source)Other fatigue; Translations: [Other fatigue]Onset: 96-95-6292Xbhgrcpz Other aftercare (1 source)skilled nursing (current) use of aspirin; Translations: [[facility] CURRENT USE OF ASPIRIN]Onset: 60-86-0005VpysnhjfArvtu aftercare (1 source)Other fpc (current) drug therapy; Translations: [OTH [facility] CURRENT DRUG THERAPY]Onset: 50-71-0798WjxojuahUdyns aftercare (2 sources)skilled nursing (current) use of insulin; Translations: [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 (Multi)]Onset: 58-38-9429YsfnwgsbIfexf connective tissue disease (2 sources)Muscle wasting and atrophy, not elsewhere classified, other site; Translations: [Muscle wasting andatrophy, not elsewhere classified, other site] Onset: 98-42-7178McngpevlQieqc connective tissue disease (5 sources)H/O: arthrodesis; Translations: [Arthrodesis status]02-12-2024 EpisodicOther inflammatory condition of skin (20 sources)Psoriasis; Translations: [Psoriasis, unspecified]Onset: 07-21-2019 15-07-1877WgiefriKvwtf injuries and conditions due to external causes (4 sources)Food in esophagus causing other injury, initial encounter; Translations: [FOOD ESOPH CAUS OTH INJURY INIT ENC]Onset: 11-67-3453Xcpyewvq Other lower respiratory disease (3 sources)Unspecified acute lower respiratory infection; Translations: [Other diseases of respiratory system,not elsewhere classified]EpisodicOther lower respiratory disease (2 sources)Cough; Translations: [Cough]42-35-6156JcszqxybRixri lower respiratory disease (2 sources)Acute lower respiratory tract infection; Translations: [Unspecified acute lower respiratory infection]06-56-8307KedlcehgZyxnd male genital disorders (3 sources)Drug-induced erectile dysfunction; Translations: [Impotence of organic origin]Onset: 394600-37-0355QfnzvhkNfije male genital disorders (1 source)Male erectile dysfunction, unspecified; Translations: [Impotence of organic origin]Onset: 416226-24-9737YmgwzmnHohtg nervous system disorders (1 source)Chronic pain syndrome; Translations: [Chronic pain syndrome]Chronic Other nervous system disorders (18 sources)Mononeuropathy of lower limb; Translations: [Unspecified mononeuropathy of bilateral lower limbs]Onset: 165337-94-5973AtswebcHrbfb nervous system disorders (1 source)Unspecified mononeuropathy of bilateral lower limbs; Translations: [Unspecified mononeuropathy of bilateral lower limbs]Onset: 92-78-2570Xlwvtzu Other nervous system disorders (1 source)Other chronic pain; Translations: [Other chronic pain]Onset: 11-48-5747XkjhmqoDwbno non-traumatic joint disorders (1 source)Pain in left hip; Translations: [Pain in left hip]Onset: 11-26-2024 EpisodicOther non-traumatic joint disorders (1 source)Hip pain; Translations: [Pain in left hip]45-55-9070BaialgcrPhkjp nutritional; endocrine; and metabolic disorders (9 sources)Overweight in adulthood with body mass index of 25 or more but less than 30; Translations: [Overweight]Onset: 200759-46-9429YcqaxitcBvznc nutritional; endocrine; and metabolic disorders (2 sources)Body mass index (BMI) 29.0-29.9, adult; Translations: [Body mass index (BMI) 29.0-29.9, adult]Onset: 99-31-1865LkzdpwwsCspiuhby codes; unclassified (20 sources)H/O Spinal surgery; Translations: [Presence of other specified functional implants]Onset: 540591-40-9400RihvsbvFkftiuwh codes; unclassified (4 sources)Procedure and treatment not carried out due to patient leaving prior to being seen by health care provider; Translations: [PROC AND TX NOT CARRIED OUT PT LEAVE]Onset: 67-86-0287EcsgrcgcSwrvayfstrd; intervertebral disc disorders; other back problems (20 sources)Other spondylosis with radiculopathy, lumbar region; Translations: [Post-laminectomy syndrome]Onset: 86-61-2491EvsltofYisbpfydvof; intervertebral disc disorders; other back problems (20 sources)Radiculopathy, lumbar region; Translations: [Lumbar radiculopathy] Onset: 89-88-9571BajkkbzeGisgflwya-related disorders (20 sources)Smokes tobacco daily; Translations: [Tobacco use disorder]Onset: 057187-56-5379SwbkkicOlvfnai on above:1-1.5 ppd;Problem List clean-up per request of Phys. EHR Cmte1-1 1/2 ppk/dayProblem List clean-up per request of Phys. 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 ANTIDIAB]Onset: 51-78-2784Jogdftjvzaql (2 sources)cervical painOnset: 84-27-5520Bipecjjikqjy (1 source)Spinal stenosis of lumbar region with neurogenic claudication [M48.062]Onset: 12-23-2739Mnvelfjlbxxc (1 source)Cough, unspecified; Translations: [Cough, unspecified]Onset: 16-12-6455Sponcwilrrim (1 source)Post-opOnset: 02-27-2024 Past or Other Problems Problem ClassificationProblemDateDocumented DateEpisodic/ChronicAbdominal pain (3 sources)Unspecified abdominal pain; Translations: [UNSPECIFIED ABDOMINAL PAIN]Onset: 42-50-5318LkspiqqsOyjltxdvxaox conditions of male genital organs (20 sources)Prostatitis; Translations: [Inflammatory disease of prostate, unspecified]Onset: 528348-83-5687GjomsmhzOjbn disorders (17 sources)Mood disordersOnset: 06-11-2023 Resolved: 181512-64-8953Zqgydbyochb chest pain (4 sources)Chest pain, unspecified; Translations: [CHEST PAIN UNSPECIFIED]Onset: 62-27-7496RrckehnoCieul aftercare (1 source)skilled nursing (current) use of oral hypoglycemic drugs; Translations: [[facility] USE ORAL HYPOGLYCEMIC DX]Onset: 74-10-5410PddmxqlpVplkb connective tissue disease (1 source)History of spinal fusion; Translations: [Arthrodesis status]02-04-2024 EpisodicOther connective tissue disease (3 sources)Arthrodesis status; Translations: [Arthrodesis status]Onset: 24-58-4290SywckfprEeiln liver diseases (1 source)Abnormal levels of other serum enzymes; Translations: [ABNORMAL LEVELS OTHER SERUM ENZYMES]Onset: 06-96-6086ObatjdsdHxfue lower respiratory disease (1 source)Shortness of breath; Translations: [SHORTNESS OF BREATH]Onset: 36-22-2144JopzpkqbSayig nervous system disorders (1 source)Postoperative pain ; Translations: [Other acute postprocedural pain] 35-38-8061HwyuryoqFkudi nutritional; endocrine; and metabolic disorders (20 sources)Body mass index 25-29 - overweight; Translations: [Overweight]Onset: 901704-20-7458XtsthnfyAddiiozmqg disorders (not diabetes) (1 source)Acute pancreatitis without necrosis or infection, unspecified; Translations: [ACUTE PANCREATITIS WONECRS/INF UNS]Onset: 08-03-4651Uvybnarj Residual codes; unclassified (1 source)Procedure and treatment not carried out because of patient's decision for other reasons; Translations: [PROC AND TX NOT CARRIED OUT PT OTH RSN]Onset: 60-11-3257Nhmlxhpo Results Test NameValueInterpretationReference RangeFacilityCT LUMBAR SPINE WO CONTon 02-43-2999OA LUMBAR SPINE WO CONTCT LUMBAR SPINE WO CONT Heterogenous CT LUMBAR SPINE WO CONT: 10/14/2024 PROVIDED HISTORY: * 49 years old Male * Other spondylosis, lumbar region; Arthrodesis status COMPARISON: 07/09/2024, 11/11/2023 TECHNIQUE: 1. CT of the lumbar spine without intravenous contrast. Sagittal and coronal reformats created and reviewed in bone and soft tissue windows. 2. All CT scans at this facility use dose modulation, iterative reconstruction, and/or weight baseddosing when appropriate to reduce radiation dose to as low as reasonably achievable. FINDINGS: Lumbar lordosis straightening. No significant listhesis. Posterior spinal fixation changes L5/S1 without evidence of acute hardware complication, fracture, or dislocation. Bilateral L5 and left S1 transpedicular screws are proud of the anterior vertebrae cortical margin. L5-S1 laminectomy changes. W idely patent spinal canal and foramina at L5/S1. Vertebral body heights and facet joint alignment are relatively preserved. Multilevel primarily discogenic changes throughout the lumbar spine. Spinal canal is grossly patent. No evidence of high-grade osseous foraminal stenosis. Mild fatty infiltration of the lower paraspinal musculature. Partially visualized thoracic spinal cord stimulator leads with pulse generator along the left dorsal soft tissues. No acute process in the visualized abdominal/pelvic compartment. IMPRESSION: 1. Postsurgical changes at L5/S1 with widely patent spinal canal and neural foramina. 2. Postsurgical and mild multilevel degenerative changes of the lumbar spine, without evidence of acute hardware complication, fracture or dislocation. 3. No evidence of high-grade spinal canal or foraminal stenosis by CT. Finalized by Ramiro Richard MD on 10/19/2024 2:50 AMNormalProMedica Morningside HospitalWork/School Release Noteon 49-12-9136Ylxc/School Release Note [id number]#1.00[facility]on 84-44-3892Indrbp Care Note [id number]#1.00OTOhio[facility] Ur[facility] Noteon 71-79-1768Cfyixx Care Note [id number]#1.00OTOhioHealth Doctors HospitalX-ray reportOrdered By: Leny May on 31-88-8208Qynuk reportUNIV[facility]ITY [facility] [place] [address] XRay Report Signed Patient: Zeeshan Llanos MR#: [id number] : 1975 Acct:[id number] Age/Sex: 49 / M ADM Date: 5 Loc: XDUCLY Room: Type: [facility] Attending Dr: Ela Flores APRN Copies to: Ela Flores APRN~ Ordering Provider: Ela Flores APRN Date of Service: 07/21/24 XR/XR chest 2V*: R05.9 - Cough, unspecified PA AND LATERAL CHEST: CLINICAL HISTORY: Cough and chest congestion COMPARISON: 05/10/2017 and 02/24/2022 There is still slight coarsening of interstitial markings. There is no focal parenchymal consolidation, effusion or pneumothorax. The cardiac, hilar and mediastinal silhouettes are within normal limits. There is no vascular congestion. The visualized bony thorax is intact. Tiny endplate spurs are noted. A dorsal stimulator is visualized. There are also cervical fusion devices. XR/XR chest 2V* IMPRESSION: NO ACUTE CARDIOPULMONARY ABNORMALITY. Impression dictated by: Leny May M.D. 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 There is no focal parenchymal consolidation, effusion or pneumothorax. The cardiac, hilar and mediastinal silhouettes are within normal limits. There is no vascular congestion. The visualized bony thorax is intact. Tiny endplate spurs are noted. A dorsal stimulator is visualized. There are also cervical fusion devices. XR/XR chest 2V* IMPRESSION: NO ACUTE CARDIOPULMONARY ABNORMALITY. Impression dictated by: Leny May M.D. 07/21/2024 12:35 PM Dictation Location: RADIO-PC-23 Transcribed By: DEBO 07/21/24 1235 Dictated By: Leny May MD 07/21/24 1227 Signed By: 07/21/24 [facility] Physician GroupXR SPINE LUMBAR 2 OR 3 VWSon 62-07-3829RN SPINE LUMBAR 2 OR 3 VWSXR SPINE LUMBAR 2 OR 3 VWS XR SPINE LUMBAR 2 OR 3 VWS Clinical history:Arthrodesis status lumbar back pain Comparison: 02/27/2024 Findings: Postoperative changes of lumbar fusion hardware placement L5-S1 with multilevel degenerative disc disease. Atherosclerotic abdominal aorta. Thoracic spinal stimulator device noted. Impression: Stable postoperative changes without new or acute process. Finalized by Chay Jean MD on 07/12/2024 6:00 [facility] HospitalOutside Recordson 57-01-3436Olzltxf Records [id number]#1.00[facility] Office/Clinic Noteon 26-71-8832Zhmwzx/Clinic Note [id number]#1.00[facility] Outside Recordson 81-31-5054Ludtvgz Records [id number]#1.00[facility] Controlled Substances Agreementson 19-47-1048Dablstcwyy Substances Agreements [id number]#1.00[facility] HospitalXR SPINE LUMBAR 2 OR 3 VWSon 75-70-5436UL SPINE LUMBAR 2 OR 3 VWSXR SPINE LUMBAR 2 OR 3 VWS EXAM: XR SPINE LUMBAR 2 OR 3 VWS CLINICAL INFORMATION: Spinal stenosis of lumbar region with neurogenic claudication. COMPARISON: 01/21/2024 FINDINGS: The lumbar spine maintains a normal lordotic curvature. Stable postsurgical changes status post L5-S1 posterior spinal fusion with disc space devices. There is no convincing radiographic evidence forhardware complications or failure. There is no evidence for an acute displaced fracture. There is no loss of the vertebral body or disc space heights. Again seen is a spinal stimulator device and leads. IMPRESSION: Stable postsurgical changes status post L5-S1 posterior spinal fusion with disc space device. Thereis no convincing radiographic evidence for hardware complications or failure. Finalized by Tariq Williamson MD on 02/27/2024 11:48 [facility] ED Note - Provideron 09-20-3890CC Note - Provider [id number]#1.00[facility] HospitalRad - CT Reporton 35-96-5362Gac - CT Report [id number]#1.00OTGTOhioHealth [facility]ide [facility] BASIC METABOLIC PANLon 97-79-8437Nyghd gap [Moles/Vol]8 mmol/LNormal5-15 [facility] HospitalComment on above:Performed By: #### Isiah MONTES DE OCA79-9, CBCA, HA1C, BMP #### [facility] ([id number]) [address], [address] [place], [place] [address]Tfcezic [Mass/Vol]8.6 mg/dLNormal8.5-10.5PJ.W. Ruby Memorial HospitalComment on above:Performed By: #### Isiah MONTES DE OCA79-9, CBCA, HA1C, BMP #### [facility] ([id number]) [address], [address] [place], [place] [address]Aqguokqp [Moles/Vol]98 mmol/LVwoyfm87-432PvpGbggod [place] HospitalComment on above:Performed By: #### TAVON 21603-4, CBCA, HA1C, BMP #### [facility] ([id number]) [address], [address] [place], [place] [address]MK5 [Moles/Vol]32 mmol/GXnlugr96-19WmhMvqxdnJ.W. Ruby Memorial Hospital Comment on above:Performed By: #### TAVON 37120-2, CBCA, HA1C, BMP #### [facility] ([id number]) [address], [address] [place], [place] [address]Bqdqmvqxux [Mass/Vol]0.54 mg/dLLow0.60-1.30ProMagruder Memorial HospitalComment on above:Result Comment: METHOD TRACEABLE TO IDMS STANDARD Performed By: #### TAVON 66283-0, CBCA, HA1C, BMP #### [facility] ([id number]) [address], [address] [place], [place] [address]fTQL (CKD-EPI) NON-RACE DEPENDENT>90Normal>59ProGalion Hospital HospitalComment on above:Result Comment: Reported eGFR is based on the CKD-EPI 2020 equation that does not use a race coefficient.Performed By: #### TAVON 32659-6, GABRIEL, HAGissell, BMP #### [facility] ([id number]) [address] [address]Igxtmdn [Mass/Vol]173 mg/hGWlxe37-39PofFbartbMagruder Memorial Hospital Comment on above:Performed By: #### TAVON 01301-0, GABRIEL, HAGissell, BMP #### [facility] ([id number]) [address] [address]Wiwuartpo [Moles/Vol]3.6 mmol/LNormal3.5-5.0ProMagruder Memorial HospitalComment on above:Performed By: #### TAVON 90310-4, GABRIEL, HA1C, BMP #### [facility] ([id number]) [address] [address]Rshrxq [Moles/Vol]138 mmol/IQlbpgn867-932NrnWodfnk [place] HospitalComment on above:Performed By: #### TAVON 41887-3, GABRIEL, HA1C, BMP #### [facility] ([id number]) [address] [address]Wjtn nitrogen [Mass/Vol]12 mg/dLNormal5-23ProGalion Hospital HospitalComment on above:Performed By: #### TAVON 57492-9, GABRIEL, HA1C, BMP #### [facility] ([id number]) [address] [address]Tzlin Metabolic Panelon 79-42-7855Hmpzg gap [Moles/Vol]8 mmol/L5 - 15 mmol/LProMeduniversity of south alabama children's and women's hospital Health SystemCalcium [Mass/Vol]8.6 mg/dL8.5 - 10.5 mg/dL White HospitalChloride [Moles/Vol]98 mmol/L98 - 109 mmol/[facility] HospitalCO2 [Moles/Vol]32 mmol/L22 - 32 mmol/[facility] Creatinine [Mass/Vol]0.54 mg/dLLow0.60 - 1.30 mg/dLWhite Hospital Comment on above:METHOD TRACEABLE TO [facility] STANDARDeGFR (CKD-EPI)non-race dependent- [facility] HospitalComment on above: Reported eGFR is based on the CKD-EPI 2020 equation that does not use a race coefficient. Glucose [Mass/Vol]173 mg/eONqfp50 - 99 mg/dLWhite Hospital Interpretation and review of laboratory resultsAbnoOnslow Memorial Hospital Potassium [Moles/Vol]3.6 mmol/L3.5 - 5.0 mmol/[facility] University Cityodium [Moles/Vol]138 mmol/L134 - 146 mmol/[facility] Willard HospitalUrea nitrogen [Mass/Vol]12 mg/dL5 - 23 mg/dLPunxsutawney Area HospitalCBC without diffon 27-21-9490Yyibgcakjhf distribution width (RBC) [Ratio]14.6 %11.5 - 15.0 %White HospitalHematocrit (Bld) [Volume fraction]38.9 %Low39 - 49 %White HospitalHemoglobin (Bld) [Mass/Vol]13.3 g/dL13.0 - 17.0 g/dL White HospitalInterpretation and review of laboratory resultsAbnormal [facility] HospitalH (RBC) [Entitic mass]28.8 pg27 - 34 [facility] HospitalMCHC (RBC) [Mass/Vol]34.3 g/dL32 - 36 g/dLWhite HospitalMCV (RBC) [Entitic vol]84 fL80 - 100 [facility] Medical CenterPlatelet mean volume (Bld) [Entitic vol]9.3 fL7 - 12 [facility] Medical CenterPlatelets (Bld) [#/Vol]198 10*3/[facility] Psychiatric HospitalRBC (Bld) [#/Vol]4.63 10*6/[facility] Psychiatric HospitalWBC corrected for nucl RBC Auto (Bld) [#/Vol]11.6HDepartment of Veterans Affairs Medical Center-LebanonCOMPLETE BLOOD COUNTon 38-37-4417Urvaoucbyux distribution width (RBC) [Ratio]14.6 %Qvfdai24.5-15.0[facility] Comment on above:Performed By: #### TAVON 11050-7, CBCA, HA1C, BMP #### [facility] ([id number]) [address], [facility] [address] [place], [place] [address]Wxdsreuhqv (Bld) [Volume fraction]38.9 %Pgq58-87WszWcttcoMagruder Memorial HospitalComment on above:Performed By: #### TAVON 95708-3, CBCA, HA1C, BMP #### [facility] ([id number]) [address], [facility] [address] [place], [place] [address]Bbyrqlwvuw (Bld) [Mass/Vol]13.3 g/eVYqspeu79.0-17.0[facility] System [facility] CampusComment on above:Performed By: #### TAVON 98726-7, CBCA, HA1C, BMP #### [facility] ([id number]) [address], [facility] [address] [place], [place] [address]QDD (RBC) [Entitic mass]28.8 joPygvyq70-34RfcAqjlsk [place] HospitalComment on above:Performed By: #### TAVON 88529-0, CBCA, HA1C, BMP #### [facility] ([id number]) [address], [address] [place], [place] [address]OMXQ (RBC) [Mass/Vol]34.3 g/dMAxatxz90-38ZreKemmkv [place] HospitalComment on above:Performed By: #### TAVON 00730-1, CBCA, HA1C, BMP #### [facility] ([id number]) [address], [address] [place], [place] [address]AGM (RBC) [Entitic vol]84 tARzzsfr02-453BpqCixsts [place] HospitalComment on above:Performed By: #### TAVON 82883-2, CBCUsha, HA1C, BMP #### [facility] ([id number]) [address], [address] [place] [address]Cojnwoae mean volume (Bld) [Entitic vol]9.3 fLNormal7-12 [facility] HospitalComment on above:Performed By: #### TAVON, 55071-3, CBCA, HA1C, BMP #### [facility] ([id number]) [address], [address] [address]Wywcuwcvj (Bld) [#/Vol]198 10*3/sCQrrxtj260-938XyxChmsje [place] HospitalComment on above:Performed By: #### TAVON 66035-8, CBCUsha, HA1C, BMP #### [facility] ([id number]) [address], [address] [address]IHB COUNT4.63 X10E12/LNormal4.10-5.70[facility] Comment on above:Performed By: #### TAVON, 18881-9, CBCA, HA1C, BMP #### [facility] ([id number]) [address], [address] [address]UTH (Bld) [#/Vol]11.6 10*3/uLHigh4.0-11.0ProMagruder Memorial HospitalComment on above:Performed By: #### TAVON, 51493-6, CBCA, HA1C, BMP #### [facility] ([id number]) [address], [address] [address]Gbabunb Glucometer (BldC) [Mass/Vol]on 17-47-9420Eraifvz [Mass/Vol]168 mg/sGGeso67 - 99 mg/dLMadison Health SystemInterpretation and review of laboratory resultsAbnoalWhite HospitalProOhiohealth Shelby HospitalGlucose [Mass/Vol]168 mg/pUEazq07-97LuxHzuqvpMagruder Memorial HospitalAPTTon 22-31-9931rMIG Coag (PPP) [Time]27 [facility] HospitalBASI METABOLIC PANL on 43-88-9581Ptojr gap [Moles/Vol]10 mmol/LNormal5-15[facility] Comment on above:Performed By: #### TAVON 17498-7, CBCA, HA1C, BMP #### [facility] ([id number]) [address], [address] [place], [place] [address]Svkgvtg [Mass/Vol]8.5 mg/dLNormal8.5-10.5PJ.W. Ruby Memorial HospitalComment on above:Performed By: #### TAVON 32611-0, CBCA, HA1C, BMP #### [facility] ([id number]) [address], [address] [place], [place] [address]Ngehfwrz [Moles/Vol]101 mmol/MRleequ91-340NmnJnxbgg [place] HospitalComment on above:Performed By: #### TAVON 15599-9, CBCA, HA1C, BMP #### [facility] ([id number]) [address], [address] [place], [place] [address]QL2 [Moles/Vol]26 mmol/NTbgdnm13-92UamVejkxbJ.W. Ruby Memorial Hospital Comment on above:Performed By: #### TAVON 16408-7, CBCA, HA1C, BMP #### [facility] ([id number]) [address], [address] [place], [place] [address]Nxgdtsmoss [Mass/Vol]0.74 mg/dLNormal0.60-1.30Tr[facility] Health System East CampusComment on above:Result Comment: METHOD TRACEABLE TO IDMS STANDARD Performed By: #### TAVON 63223-7, CBCA, HA1C, BMP #### [facility] ([id number]) [address] [address]mLQZ (CKD-EPI) NON-RACE DEPENDENT>90Normal>59ProGalion Hospital HospitalComment on above:Result Comment: Reported eGFR is based on the CKD-EPI 2020 equation that does not use a race coefficient.Performed By: #### TAVON 37031-3, CBCA, HA1C, BMP #### [facility] ([id number]) [address] [address]Zfpjjup [Mass/Vol]312 mg/rDMplo45-76NesNwibqtMagruder Memorial Hospital Comment on above:Performed By: #### TAVON 82839-2, CBCA, HA1C, BMP #### [facility] ([id number]) [address] [address]Gaidmqvns [Moles/Vol]4.3 mmol/LNormal3.5-5.0ProGalion Hospital HospitalComment on above:Performed By: #### TAVON 83569-0, CBCA, HA1C, BMP #### [facility] ([id number]) [address] [address]Ktoyke [Moles/Vol]137 mmol/SFavzjl350-803DfdXdtwnm [place] HospitalComment on above:Performed By: #### TAVON 24305-9, CBCA, HA1C, BMP #### [facility] ([id number]) [address] [address]Toii nitrogen [Mass/Vol]18 mg/dLNormal5-23ProGalion Hospital HospitalComment on above:Performed By: #### TAVON 97776-7, CBCA, HA1C, BMP #### [facility] ([id number]) [address] [address]Qzuxh Metabolic Panelon 14-84-1910Uwjlq gap [Moles/Vol]10 mmol/L 5 - 15 mmol/LProMeduniversity of south alabama children's and women's hospital Health SystemCalcium [Mass/Vol]8.5 mg/dL8.5 - 10.5 mg/dL White HospitalChloride [Moles/Vol]101 mmol/L98 - 109 mmol/[facility] SystemCO2 [Moles/Vol]26 mmol/L22 - 32 mmol/[facility] Creatinine [Mass/Vol]0.74 mg/dL0.60 - 1.30 mg/dLWhite HospitalComment on above:METHOD TRACEABLE TO IDPA STANDARDeGFR (CKD-EPI)non-race dependent- PINF White HospitalComment on above: Reported eGFR is based on the CKD-EPI 2020 equation that does not use a race coefficient. Glucose [Mass/Vol]312 mg/tRWglh76 - 99 mg/dLWhite Hospital Interpretation and review of laboratory resultsAbnoOnslow Memorial Hospital Potassium [Moles/Vol]4.3 mmol/L3.5 - 5.0 mmol/[facility] University Cityodium [Moles/Vol]137 mmol/L134 - 146 mmol/[facility] SystemUrea nitrogen [Mass/Vol]18 mg/dL5 - 23 mg/dLPunxsutawney Area HospitalCBC without diffon 31-30-4175Yzvwddsfxxb distribution width (RBC) [Ratio]14.5 %11.5 - 15.0 %White HospitalHematocrit (Bld) [Volume fraction]42.6 %39 - 49 % White HospitalHemoglobin (Bld) [Mass/Vol]14 g/dL13.0 - 17.0 g/dL White HospitalInterpretation and review of laboratory resultsAbnormal [facility] HospitalH (RBC) [Entitic mass]28 pg27 - 34 [facility] HospitalMCHC (RBC) [Mass/Vol]32.9 g/dL32 - 36 g/dLWhite HospitalMCV (RBC) [Entitic vol]85 fL80 - 100 [facility] CenterPlatelet mean volume (Bld) [Entitic vol]9.6 fL7 - 12 [facility] CenterPlatelets (Bld) [#/Vol]232 10*3/[facility] Psychiatric HospitalRBC (Bld) [#/Vol]5 10*6/[facility] WBC corrected for nucl RBC Auto (Bld) [#/Vol]18.2HSouthwest Health CenterCOMPLETE BLOOD COUNTon 70-17-8411Gdtjcxjxbgb distribution width (RBC) [Ratio]14.5 %Tmugsf29.5-15.0ProGalion Hospital HospitalComment on above:Performed By: #### TAVON 60978-9, CBCA, HA1C, BMP #### [facility] ([id number]) [address], [facility] [address] [place], [place] [address]Opgeoehawu (Bld) [Volume fraction]42.6 %Lgrdzl81-02KjxXrakdi [place] HospitalComment on above:Performed By: #### TAVON 46342-1, CBCA, HA1C, BMP #### [facility] ([id number]) [address], [facility] [address] [place], [place] [address]Pufvjorhww (Bld) [Mass/Vol]14.0 g/xUNbcfoh24.0-17.0ProGalion Hospital HospitalComment on above:Performed By: #### TAVON 40228-5, CBCA, HA1C, BMP #### [facility] ([id number]) [address], [address] [place], [place] [address]DMA (RBC) [Entitic mass]28.0 ujIgpytt96-71BmbBqmcyu [place] HospitalComment on above:Performed By: #### TAVON 37015-3, CBCA, HA1C, BMP #### [facility] ([id number]) [address], [address] [place], [place] [address]RFII (RBC) [Mass/Vol]32.9 g/tBFeutqy41-84FiyYxqadf [place] HospitalComment on above:Performed By: #### TAVON 65219-3, CBCA, HA1C, BMP #### [facility] ([id number]) [address], [address] [place], [place] [address]MNF (RBC) [Entitic vol]85 rHVfoikf74-007OfzOkehdy [place] HospitalComment on above:Performed By: #### TAVON 42858-8, CBCUsha, HA1C, BMP #### [facility] ([id number]) [address], [address] [place], [place] [address]Khqcngdf mean volume (Bld) [Entitic vol]9.6 fLNormal7-12 [facility] Hamilton HospitalComment on above:Performed By: #### TVAON, 53317-3, CBCA, HA1C, BMP #### [facility] ([id number]) [address], [facility] [address] [place], [place] [address]Vavxyllgf (Bld) [#/Vol]232 10*3/zHTddczp013-148SawHamvpy [place] HospitalComment on above:Performed By: #### TAVON 66299-8, CBCUsha, HA1C, BMP #### [facility] ([id number]) [address], [address] [address]PGW COUNT5.00 X10E12/LNormal4.10-5.70[facility] Comment on above:Performed By: #### TAVON 55631-2, CBCA, HA1C, BMP #### [facility] ([id number]) [address], [address] [address]TQH (Bld) [#/Vol]18.2 10*3/uLHigh4.0-11.0ProMagruder Memorial HospitalComment on above:Performed By: #### TAVON 01788-9, CBCA, HA1C, BMP #### [facility] ([id number]) [address], [address] [place] [address]Uirnbkt Glucometer (BldC) [Mass/Vol]on 92-98-1817Tqhnurv [Mass/Vol]389 mg/zJZyse96 - 99 mg/dLMadison Health SystemInterpretation and review of laboratory resultsAbnoVA hospitalGlucose [Mass/Vol]389 mg/cWNlod94-89YzoYmlozmTrinity Health System East CampusGlucose [Mass/Vol]328 mg/dZCvct05 - 99 mg/dLWhite HospitalInterpretation and review of laboratory resultsAbnoVA hospitalGlucose [Mass/Vol]328 mg/qYGopf26-62UdpDmbdwtTrinity Health System East CampusGlucose [Mass/Vol]371 mg/dFSbpq28 - 99 mg/dLWhite HospitalInterpretation and review of laboratory resultsAbnoVA hospitalGlucose [Mass/Vol]371 mg/zGTaqi94-92XvrWerpvqTrinity Health System East CampusGlucose [Mass/Vol]254 mg/rSZqxq60 - 99 mg/dLWhite HospitalInterpretation and review of laboratory resultsAbnoVA hospitalGlucose [Mass/Vol]254 mg/hUHywq02-26NpnEubhabTrinity Health System East CampusXR Lumbar spine 2 or 3 Viewson 80-81-9567CX SPINE LUMBAR 2 OR 3 VWS Clinical history:check hardware - post-op from L5-P5qdmymd lumbar back pain Comparison: 06/04/2019 Findings: Lumbar fusion hardware in place at L4-L5 of multilevel degenerative disc disease and facet hypertrophy. Spinal simulator device is noted. Impression: Postoperative changes of lumbar fusion hardware L5-S1. No acute process. Finalized by Chay Jean MD on 01/21/2024 8:23 AMSChay Peña MD - 01/21/2024 XR SPINE LUMBAR 2 OR 3 VWS Clinical history:check hardware - post-op from L5-L8drkwws lumbar back pain Comparison: 06/04/2019 Findings: Lumbar fusion hardware in place at L4-L5 of multilevel degenerative disc disease and facet hypertrophy. Spinal simulator device is noted. Impression: Postoperative changes of lumbar fusion hardware L5-S1. No acute process. Finalized by Chay Jean MD on 01/21/2024 8:23 AM [employer] SystemRadiology Study observation (narrative)ProMedicMEDArchon SystemXR Lumbar spine 2 or 3 ViewsOrdered By: Chay Jean on 01-21-2024 [facility] Work Phone: XR SPINE LUMBAR 2 OR 3 VWSon 76-92-8699IJ SPINE LUMBAR 2 OR 3 VWSXR SPINE LUMBAR 2 OR 3 VWS XR SPINE LUMBAR 2 OR 3 VWS Clinical history:check hardware - post-op from L5-T6goduwm lumbar back pain Comparison: 06/04/2019 Findings: Lumbar fusion hardware in place at L4-L5 of multilevel degenerative disc disease and facet hypertrophy. Spinal simulator device is noted. Impression: Postoperative changes of lumbar fusion hardware L5-S1. No acute process. Finalized by Chay Jean MD on 01/21/2024 8:23 AMNormalProMagruder Memorial HospitalaPTT Coag (PPP) [Time]on 89-48-0315XqyBwdfpzKettering Memorial HospitalaPTT Coag (Bld) [Time]27 wCjnogu30-77UvaPjrdat [place] HospitalComment on above:Performed By: #### TAVON 68966-1, CBCA, HA1C, BMP #### [facility] ([id number]) [address], [address] [place], [place] [address]LWZPC METABOLIC PANLon 73-75-8217Xufdx gap [Moles/Vol]10 mmol/L Normal5-15ProGalion Hospital HospitalComment on above:Performed By: #### TAVON 99334-4, CBCA, HA1C, BMP #### [facility] ([id number]) [address], [address] [place], [place] [address]Sfnmheg [Mass/Vol]8.8 mg/dLNormal8.5-10.5PLakeHealth Beachwood Medical Center HospitalComment on above:Performed By: #### TAVON 07525-5, CBCA, HA1C, BMP #### [facility] ([id number]) [address], [address] [place], [place] [address]Vodprzzw [Moles/Vol]99 mmol/SWruztm96-514OpoIfilfp [place] HospitalComment on above:Performed By: #### TAVON 36702-3, CBCUsha, HA1C, BMP #### [facility] ([id number]) [address] [address] [place], [place] [address]PQ4 [Moles/Vol]26 mmol/NIuygcb15-91PceRlgwrrJ.W. Ruby Memorial Hospital Comment on above:Performed By: #### TAVON 99596-6, CBCA, HA1C, BMP #### [facility] ([id number]) [address], [address] [place], [place] [address]Edjnxikjwu [Mass/Vol]0.82 mg/dLNormal0.60-1.30ProMagruder Memorial HospitalComment on above:Result Comment: METHOD TRACEABLE TO IDMS STANDARD Performed By: #### TAVON 29986-4, GABRIEL, HA1C, BMP #### [facility] ([id number]) [address] [address]oDJV (CKD-EPI) NON-RACE DEPENDENT>90Normal>59ProMagruder Memorial HospitalComment on above:Result Comment: Reported eGFR is based on the CKD-EPI 2020 equation that does not use a race coefficient.Performed By: #### TAVON 93586-4, GABRIEL, HA1C, BMP #### [facility] ([id number]) [address] [address]Ymdgdnb [Mass/Vol]303 mg/vYCeks40-38CbrEvyrmrTrinity Health System East Campus Comment on above:Performed By: #### TAVON 06605-9, CBCA, HA1C, BMP #### [facility] ([id number]) [address] [address] [place], [place] [address]Sizsfjdqa [Moles/Vol]4.2 mmol/LNormal3.5-5.0ProMagruder Memorial HospitalComment on above:Performed By: #### TAVON 17220-0, CBCA, HA1C, BMP #### [facility] ([id number]) [address], [place] [address]Yjxuym [Moles/Vol]135 mmol/FCylnao932-512KaqFnqkekTrinity Health System East CampusComment on above:Performed By: #### TAVON, 98118-5, CBCA, HA1C, BMP #### [facility] ([id number]) [address], [address] [place], [place] [address]Glby nitrogen [Mass/Vol]20 mg/dLNormal5-23ProMagruder Memorial HospitalComment on above:Performed By: #### TAVON, 69645-0, CBCA, HA1C, BMP #### [facility] ([id number]) [address], [address] [place], [place] [address]Knkvn Metabolic Panelon 19-53-1428Dmfao gap [Moles/Vol]10 mmol/L 5 - 15 mmol/[facility] HokeoMedica Health SystemCalcium [Mass/Vol]8.8 mg/dL8.5 - 10.5 mg/dL White HospitalChloride [Moles/Vol]99 mmol/L98 - 109 mmol/LProMedica Health SystemCO2 [Moles/Vol]26 mmol/L22 - 32 mmol/[facility] HokeoMedica Health System Creatinine [Mass/Vol]0.82 mg/dL0.60 - 1.30 mg/dLWhite HospitalComment on above:METHOD TRACEABLE TO IDPA STANDARDeGFR (CKD-EPI)non-race dependent- PINF White HospitalComment on above: Reported eGFR is based on the CKD-EPI 2020 equation that does not use a race coefficient. Glucose [Mass/Vol]303 mg/gNKxsv35 - 99 mg/dLWhite Hospital Interpretation and review of laboratory resultsAbnormalMadison Health System Potassium [Moles/Vol]4.2 mmol/L3.5 - 5.0 mmol/LProMedica Health SystemSodium [Moles/Vol]135 mmol/L134 - 146 mmol/[facility] - HokeoMedica Health SystemUrea nitrogen [Mass/Vol]20 mg/dL5 - 23 mg/dLPunxsutawney Area HospitalCBC without diffon 29-37-7657Fvxvzrliyhj distribution width (RBC) [Ratio]14.6 %11.5 - 15.0 %White HospitalHematocrit (Bld) [Volume fraction]46.8 %39 - 49 % White HospitalHemoglobin (Bld) [Mass/Vol]15.5 g/dL13.0 - 17.0 g/dL White HospitalInterpretation and review of laboratory resultsAbnormal [facility] HospitalH (RBC) [Entitic mass]28 pg27 - 34 [facility] HospitalMCHC (RBC) [Mass/Vol]33.2 g/dL32 - 36 g/dLWhite HospitalMCV (RBC) [Entitic vol]84 fL80 - 100 [facility] CenterPlatelet mean volume (Bld) [Entitic vol]9.3 fL7 - 12 [facility] CenterPlatelets (Bld) [#/Vol]228 10*3/[facility] Psychiatric HospitalRBC (Bld) [#/Vol]5.54 10*6/[facility] Psychiatric HospitalWBC corrected for nucl RBC Auto (Bld) [#/Vol]18.8HDepartment of Veterans Affairs Medical Center-LebanonCOMPLETE BLOOD COUNTon 56-54-9767Rzijexbplrv distribution width (RBC) [Ratio]14.6 %Auzszn20.5-15.0[facility] Comment on above:Performed By: #### TAVON, 32073-3, CBCA, HA1C, BMP #### [facility] ([id number]) [address], [address] [place], [place] [address]Ncytsdmgfg (Bld) [Volume fraction]46.8 %Ygjaod61-20VeyXbzsslTrinity Health System East CampusComment on above:Performed By: #### TAVON, 62377-1, CBCA, HA1C, BMP #### [facility] ([id number]) [address], [address] [place], [place] [address]Homjydhyun (Bld) [Mass/Vol]15.5 g/pCPvlonu23.0-17.0[facility] CampusComment on above:Performed By: #### TAVON 43629-6, CBCA, HA1C, BMP #### [facility] ([id number]) [address], [address] [place], [place] [address]WJF (RBC) [Entitic mass]28.0 jxLrciju21-02ZhvJfxufs [facility] HospitalComment on above:Performed By: #### TAVON 09806-1, CBCA, HA1C, BMP #### [facility] ([id number]) [address], [address] [place], [place] [address]HCHM (RBC) [Mass/Vol]33.2 g/oJRnbgki50-46EubEkcntu [facility] HospitalComment on above:Performed By: #### TAVON 36884-1, CBCA, HA1C, BMP #### [facility] ([id number]) [address], [address] [place], [place] [address]SVQ (RBC) [Entitic vol]84 vSIdwsqi86-423UeuUpieek [facility] HospitalComment on above:Performed By: #### TAVON 79314-0, CBCA, HA1C, BMP #### [facility] ([id number]) [address], [address] [place] [address]Cpgnnwyn mean volume (Bld) [Entitic vol]9.3 fLNormal7-12 [facility] HospitalComment on above:Performed By: #### TAVON 21974-6, CBCA, HA1C, BMP #### [facility] ([id number]) [address] [place], [place] [address]Ckrxdenuv (Bld) [#/Vol]228 10*3/aZOnpunb797-313UrqCvtfqv [facility] HospitalComment on above:Performed By: #### TAVON, 54702-6, CBCA, HA1C, BMP #### [facility] ([id number]) [address], [address] [place], [place] [address]ANG COUNT5.54 X10E12/LNormal4.10-5.70[facility] Comment on above:Performed By: #### SIRIR, 68139-2, CBCA, HA1C, BMP #### [facility] ([id number]) [address], [address] [place], [place] [address]IWX (Bld) [#/Vol]18.8 10*3/uLHigh4.0-11.0[facility] CampusComment on above:Performed By: #### PINR, 30773-1, CBCA, HA1C, BMP #### [facility] ([id number]) [address], [address] [place], [place] [address]IO FLUORO GUIDANCE SPINAL PUNCTURE OPERATIVEon 45-83-3885ZR FLUORO GUIDANCE SPINAL PUNCTURE OPERATIVEFL FLUORO GUIDANCE SPINAL PUNCTURE OPERATIVE EXAM: FL FLUORO GUIDANCE SPINAL PUNCTURE OPERATIVE CLINICAL INFORMATION: Lumbar fusion in OR 16. COMPARISON: None. FINDINGS: Intraoperative fluoroscopy and CT was provided to the ordering clinical service. The submitted images demonstrate devices projecting dorsal to the lower lumbar spine and sacrum. Reference Air Kerma: 28.91 mGy IMPRESSION: Intraoperative fluoroscopy and CT was provided to the ordering clinical service, as above. Finalized by Tariq Williamson MD on 01/20/2024 4:53 PMNormalTrinity Health System East Campus Glucose Glucometer (BldC) [Mass/Vol]on 56-66-3592Hknlrfg [Mass/Vol]280 mg/dLHigh 65 - 99 mg/dLWhite HospitalInterpretation and review of laboratory resultsAbnormalPunxsutawney Area HospitalGlucose [Mass/Vol] 280 mg/eSNjdt74-77NuoGvkyfaTrinity Health System East CampusGlucose [Mass/Vol]293 mg/kBYnyu53 - 99 mg/dLWhite HospitalInterpretation and review of laboratory results AbnormalPunxsutawney Area HospitalGlucose [Mass/Vol]293 mg/fQKyzm54-59QxeNgssdzMagruder Memorial HospitalGlucose [Mass/Vol]296 mg/kZBguz20 - 99 mg/dLWhite HospitalInterpretation and review of laboratory results AbnormalPunxsutawney Area HospitalGlucose [Mass/Vol]296 mg/vVYpdz43-94QclAedckyTrinity Health System East CampusGlucose [Mass/Vol]303 mg/aBSgpy81 - 99 mg/dLWhite HospitalInterpretation and review of laboratory results AbnormalPunxsutawney Area HospitalGlucose [Mass/Vol]303 mg/qVZtcy23-16QwtHijtkcMercy Health [facility] Hospital Guidance for injection of Spine facet jointon 47-12-6838NEYN: FL FLUORO GUIDANCE SPINAL PUNCTURE OPERATIVE CLINICAL INFORMATION: Lumbar fusion in OR 16. COMPARISON: None. FINDINGS: Intraoperative fluoroscopy and CT was provided to the ordering clinical service. The submitted images demonstrate devices projecting dorsal to the lower lumbar spine and sacrum. Reference Air Kerma: 28.91 mGy IMPRESSION: Intraoperative fluoroscopy and CT was provided to the ordering clinical service, as above. Finalized by Tariq Williamson MD on 01/20/2024 4:53 PMSLenox Hill HospitalTariq MD - 01/20/2024 EXAM: FL FLUORO GUIDANCE SPINAL PUNCTURE OPERATIVE CLINICAL INFORMATION: Lumbar fusion in OR 16. COMPARISON: None. FINDINGS: Intraoperative fluoroscopy and CT was provided to the ordering clinical service. The submitted images demonstrate devices projecting dorsal to the lower lumbar spine and sacrum. Reference Air Kerma: 28.91 mGy IMPRESSION: Intraoperative fluoroscopy and CT was provided to the ordering clinical service, as above. Finalized by Tariq Williamson MD on 01/20/2024 4:53 PM White HospitalRadiology Study observation (narrative)[facility] Guidance for injection of Spine facet jointOrdered By: Tariq Williamson on 74-75-1551RkxMuntoyKettering Memorial Hospital Work Phone: bacteria identified Cx Nom (U)on 16-18-7639Ausflbt comment (Unsp spec) [Interp]<10,000 ORGANISMS/ML NORMAL URO GENITAL GILA Punxsutawney Area HospitalAPTTon 81-30-4426wSST Coag (PPP) [Time]32 [facility] HospitalBASI METABOLIC PANLon 77-59-2266Xxilo gap [Moles/Vol]12 mmol/LNormal5-15[facility] CampusComment on above: Performed By: #### TAVON 02159-7, CBCA, HA1C, BMP #### [facility] ([id number]) [address], [address] [place], [place] [address]Artctnh [Mass/Vol]9.7 mg/dLNormal8.5-10.5PJ.W. Ruby Memorial HospitalComment on above:Performed By: #### TAVON 55499-8, CBCA, HA1C, BMP #### [facility] ([id number]) [address], [address] [place], [place] [address]Qgztxnzp [Moles/Vol]96 mmol/AIma72-643AarCocqhpTrinity Health System East Campus Comment on above:Performed By: #### TAVON 34412-2, CBCA, HA1C, BMP #### [facility] ([id number]) [address], [address] [place], [place] [address]DZ0 [Moles/Vol]26 mmol/IGhesyf95-65VjmGvsrfnJ.W. Ruby Memorial Hospital Comment on above:Performed By: #### TAVON 10099-2, CBCUsha, HA1C, BMP #### [facility] ([id number]) [address], [address] [place], [place] [address]Lnsbdunzoo [Mass/Vol]0.63 mg/dLNormal0.60-1.30[facility] System East CampusComment on above:Result Comment: METHOD TRACEABLE TO IDMS STANDARD Performed By: #### TAVON 77145-1, CBCUsha, HA1C, BMP #### [facility] ([id number]) [address] [place], [place] [address]oTNG (CKD-EPI) NON-RACE DEPENDENT>90Normal>59ProMagruder Memorial HospitalComment on above:Result Comment: Reported eGFR is based on the CKD-EPI 2020 equation that does not use a race coefficient.Performed By: #### TAVON 74538-1, CBCA, HA1C, BMP #### [facility] ([id number]) [address], [address] [place] [address]Dxtvbgd [Mass/Vol]235 mg/aRCzqy54-48DjsZtukooMagruder Memorial Hospital Comment on above:Performed By: #### TAVON, 95996-7, CBCA, HA1C, BMP #### [facility] ([id number]) [address], [address] [address]Nhxoypzul [Moles/Vol]4.1 mmol/LNormal3.5-5.0ProGalion Hospital HospitalComment on above:Performed By: #### TAVON 16089-2, CBCA, HA1C, BMP #### [facility] ([id number]) [address], [address] [address]Uvmroh [Moles/Vol]134 mmol/HJgcfif472-288FchFjuqwd [place] HospitalComment on above:Performed By: #### TAVON 03973-1, CBCA, HA1C, BMP #### [facility] ([id number]) [address], [address] [address]Awge nitrogen [Mass/Vol]12 mg/dLNormal5-23ProGalion Hospital HospitalComment on above:Performed By: #### TAVON 52234-1, CBCA, HA1C, BMP #### [facility] ([id number]) [address], [address] [address]Dnbqz Metabolic Panelon 25-86-2368Psquh gap [Moles/Vol]12 mmol/L 5 - 15 mmol/LProMedica Health SystemCalcium [Mass/Vol]9.7 mg/dL8.5 - 10.5 mg/dL [facility] SystemChloride [Moles/Vol]96 mmol/LLow98 - 109 mmol/LProMedica Health SystemCO2 [Moles/Vol]26 mmol/L22 - 32 mmol/LProMedica Health System Creatinine [Mass/Vol]0.63 mg/dL0.60 - 1.30 mg/dLProSumma Health Barberton Campusca Health SystemComment on above:METHOD TRACEABLE TO IDMS STANDARDeGFR (CKD-EPI)non-race dependent- PINF White HospitalComment on above: Reported eGFR is based on the CKD-EPI 2020 equation that does not use a race coefficient. Glucose [Mass/Vol]235 mg/iGPjbd68 - 99 mg/dLWhite Hospital Interpretation and review of laboratory resultsAbnormalWhite Hospital Potassium [Moles/Vol]4.1 mmol/L3.5 - 5.0 mmol/LPrChildren's Hospital Colorado Health SystemSodium [Moles/Vol]134 mmol/L134 - 146 mmol/LPrThe [facility] of [facility] SystemUrea nitrogen [Mass/Vol]12 mg/dL5 - 23 mg/dLPunxsutawney Area HospitalCBC AND AUTO DIFFon 13-22-0808PMYZPHOA BASOPHIL0.1 X10E9/LNormal0.0-0.2PJ.W. Ruby Memorial HospitalComment on above:Performed By: ###Génesis MONTES DE OCA 95215-3, CBCA, HA1C, BMP #### [facility] ([id number]) [address], [address] [place], [place] [address]JHCTFJXF NEUTROPHIL7.4 X10E9/LHigh1.5-6.6ProMagruder Memorial HospitalComment on above:Performed By: ###Génesis MONTES DE OCA 10793-3, CBCA, HA1C, BMP #### [facility] ([id number]) [address], [address] [place], [place] [address]Sbkpecjir/100 WBC (Bld)0.9 %NormalProMagruder Memorial Hospital Comment on above:Performed By: ###Génesis MONTES DE OCA 72797-6, CBCA, HA1C, BMP #### [facility] ([id number]) [address], [address] [place], [place] [address]Mwgyngokwha (Bld) [#/Vol]0.4 10*3/uLNormal0.0-0.4[facility] CampusComment on above:Performed By: ###Génesis MONTES DE OCA 66256-1, CBCA, HA1C, BMP #### [facility] ([id number]) [address], [address] [place], [place] [address]Qloxcuvyxsk/100 WBC (Bld)3.4 %NormalProGalion Hospital Hospital Comment on above:Performed By: #### TAVON 84468-6, CBCA, HA1C, BMP #### [facility] ([id number]) [address], [address] [address]Dfhdbxxvale distribution width (RBC) [Ratio]14.8 %Normal 11.5-15.0ProGal[facility] Hospital HospitalComment on above:Performed By: #### TAVON 74687-9, CBCA, HA1C, BMP #### [facility] ([id number]) [address] [address]Eywhayotek (Bld) [Volume fraction]50.1 %Swfj62-90PgpUlabjx [place] HospitalComment on above:Performed By: #### TAVON 34578-6, CBCA, HA1C, BMP #### [facility] ([id number]) [address] [address]Obomtixylu (Bld) [Mass/Vol]17.0 g/sQMamjwd82.0-17.0ProGalion Hospital HospitalComment on above:Performed By: #### TAVON 34926-1, CBCA, HA1C, BMP #### [facility] ([id number]) [address] [address]Sphzhrrzvqy (Bld) [#/Vol]2.5 10*3/uLNormal1.0-3.5ProMedica Hamilton HospitalComment on above:Performed By: #### TAVON 50314-0, CBCA, HA1C, BMP #### [facility] ([id number]) [address] [address] [place], [place] [address]Ekotteszyrs/100 WBC (Bld)22.8 %NormalTrinity Health System East Campus Comment on above:Performed By: #### TAVON 77765-1, CBCA, HA1C, BMP #### [facility] ([id number]) [address], [address] [place], [place] [address]HWU (RBC) [Entitic mass]28.7 saRywoev77-15GbgDbehrb Hamilton HospitalComment on above:Performed By: #### Brittny MONTES DE OCA-9, CBCA, HA1C, BMP #### [facility] ([id number]) [address], [address] [place], [place] [address]NCRF (RBC) [Mass/Vol]34.0 g/wMFvxufi30-86YgaYokebx [place] HospitalComment on above:Performed By: #### Brittny MONTES DE OCA-9, CBCA, HA1C, BMP #### [facility] ([id number]) [address], [address] [place], [place] [address]OCK (RBC) [Entitic vol]84 oJNqygpa00-255HimIpbyjn Hamilton HospitalComment on above:Performed By: #### TAVON 08509-8, CBCA, HA1C, BMP #### [facility] ([id number]) [address], [address] [place], [place] [address]Tddjrhqza (Bld) [#/Vol]0.7 10*3/uLNormal0-0.9ProSumma Health Barberton Campusca Hamilton HospitalComment on above:Performed By: #### TAVON 75882-8, CBCA, HA1C, BMP #### [facility] ([id number]) [address], [address] [place], [place] [address]Gukgdlzaq/100 WBC (Bld)6.3 %NormalTrinity Health System East Campus Comment on above:Performed By: #### TAVON 89973-6, CBCA, HA1C, BMP #### [facility] ([id number]) [address], [address] [place], [place] [address]Ymosiimbyad/100 WBC (Bld)66.6 %NormalTrinity Health System East Campus Comment on above:Performed By: #### TAVON, 65405-4, CBCA, HA1C, BMP #### [facility] ([id number]) [address], [address] [place], [place] [address]Jkuereno mean volume (Bld) [Entitic vol]10.0 fLNormal7-12 ProMedicKettering HealthComment on above:Performed By: #### TAVON 60676-6, CBCA, HA1C, BMP #### [facility] ([id number]) [address] [place], [place] [address]Xcilqqmbt (Bld) [#/Vol]233 10*3/hHAofasi475-054MolWvjnew [place] HospitalComment on above:Performed By: #### TAVON 95589-5, CBCA, HA1C, BMP #### [facility] ([id number]) [address] [place], [place] [address]AWK COUNT5.94 X10E12/LHigh4.10-5.70[facility] Comment on above:Performed By: #### TAVON 35534-0, CBCA, HA1C, BMP #### [facility] ([id number]) [address] [place], [place] [address]CUL (Bld) [#/Vol]11.1 10*3/uLHigh4.0-11.0Trinity Health System East CampusComment on above:Performed By: #### TAVON, 01329-5, CBCA, HA1C, BMP #### [facility] ([id number]) [address] [place], [place] [address]BFW auto differentialon 91-08-1828Zzcagxyvl (Bld) [#/Vol]0.1 10*3/uLProMedica Martins Ferry Hospital SystemBasophils/100 WBC (Bld)0.9 %White HospitalEosinophils (Bld) [#/Vol]0.4 10*3/[facility] Psychiatric HospitalEosinophils/100 WBC (Bld)3.4 %White HospitalErythrocyte distribution width (RBC) [Ratio]14.8 %11.5 - 15.0 %White HospitalHematocrit (Bld) [Volume fraction]50.1 %High39 - 49 %White HospitalHemoglobin (Bld) [Mass/Vol] 17.0 g/dL13.0 - 17.0 g/dLWhite HospitalInterpretation and review of laboratory resultsAbnoOnslow Memorial HospitalLymphocytes (Bld) [#/Vol]2.5 10*3/[facility] Psychiatric HospitalLymphocytes/100 WBC (Bld)22.8 %White HospitalMCH (RBC) [Entitic mass]28.7 pg27 - 34 [facility] HospitalMCHC (RBC) [Mass/Vol]34.0 g/dL32 - 36 g/dLWhite HospitalMCV (RBC) [Entitic vol]84 fL80 - 100 [facility] CenterMonocytes (Bld) [#/Vol]0.7 10*3/[facility] Psych[facility] HospitalMonocytes/100 WBC (Bld)6.3 %White HospitalNeutrophils (Bld) [#/Vol]7.4 10*3/[facility] HospitalNeutrophils/100 WBC (Bld)66.6 %White HospitalPlatelet mean volume (Bld) [Entitic vol]10.0 fL7 - 12 [facility] Medical CenterPlatelets (Bld) [#/Vol]233 10*3/[facility] Psychiatric HospitalRBC (Bld) [#/Vol]5.94 10*6/[facility] HospitalWBC corrected for nucl RBC Auto (Bld) [#/Vol]11.1HighPunxsutawney Area HospitalECG 12 leadon 16-74-1674CYMTEMUCUVSJINUmyEgqvzk Health SystemHGB A1C (GLYCO-HGB)on 69-49-6225Ehqtivi [Mass/Vol]229 mg/dLNoMcKitrick HospitalComment on above:Performed By: #### TAVON, 02939-5, CBCA, HA1C, BMP #### [facility] ([id number]) [address] [facility], [address] [place], [place] [address]TbR1o (Bld) [Mass fraction]9.6 %High4.4-5.6Trinity Health System East CampusComment on above:Result Comment: NOTE ADA Guidelines Result HgbA1c Normal : less than 5.7 % Prediabetes : 5.7 % to 6.4 % Diabetes : > 6.4 % Use with caution in patients with abnormal hemoglobin variants as the half-life of red blood cells and in vivo glycation rates are affected.Performed By: #### TAVON, 78676-9, CBCA, HA1C, BMP #### [facility] ([id number]) [address], [address] [place], [place] [address]Fdfhmjlsqo A1con 03-62-5292Vagyrhw glucose Estimated from glycated hemoglobin (Bld) [Mass/Vol]229 mg/dLWhite HospitalHbA1c (Bld) [Mass fraction]9.6 %High4.4 - 5.6 %White HospitalComment on above:NOTE ADA Guidelines Result HgbA1c Normal : less than 5.7 % Prediabetes : 5.7 % to 6.4 % Diabetes : > 6.4 % Use with caution in patients with abnormal hemoglobin variants as the half-life of red blood cells and in vivo glycation rates are affected. Interpretation and review of laboratory resultsAbnoWatertown Regional Medical CenterMRSA DNA ZULMA+probe Ql (Unsp spec)on 50-93-1207YruEzroieKettering Memorial HospitalMRSA PCR NASALon 41-47-6595HGHG DNA ZULMA+probe Ql (Unsp spec) NegativeNormalNEGProMedica Hamilton HospitalComment on above:Performed By: #### 99130-1 #### [facility] ([id number]) [address] [place], [place] [address]Tztj Pcr nasal swabon 65-71-7502IGVN DNA ZULMA+probe Ql (Unsp spec)NegativeNegative^NegativeProMedica Health SystemNo Panel Informationon 64-18-3805GslUjjgdi Health SystemPROTIME AND INRon 81-15-7881LMW Coag (PPP) [Relative time]0.9 {INR}Normal0.8-1.1ProMedAshtabula County Medical Center HospitalComment on above: Performed By: #### TAVON, 16919-3, CBCA, HA1C, BMP #### [facility] ([id number]) [address] [facility], [address] [place], [place] [address]HH Coag (PPP) [Time]10.4 sNormal9.8-13.2ProMedAshtabula County Medical Center HospitalComment on above:Performed By: #### TAVON, 12602-0, CBCA, HA1C, BMP #### [facility] ([id number]) [address] [facility], [address] [place], [place] [address]Iwpmgmr & INRon 92-40-8655EST Coag (PPP) [Relative time]0.9 {INR}ProMUnited Hospital SystemPT Coag (PPP) [Time]10.4 [facility] Type and screenon 07-44-6377IYXIVftQnzjqe Health SystemRh Nom (Bld)Positive [facility] SystemProMedica Health SystemURINALYSISon 76-82-2594Buncybvhl Ql (U)NegativeNormalNEGProMedica Hamilton HospitalComment on above:Performed By: #### UA #### [facility] ([id number]) [address] [place], [place] [address]NZSVR/HGBNegativeNormalNEGProMedica Hamilton HospitalComment on above:Performed By: #### UA #### [facility] ([id number]) [address] [place], [place] [address]Utpls (U)YELLOWNormalYELLOWProMedica Bowling HospitalComment on above:Performed By: #### UA #### [facility] ([id number]) [address] [place], [place] [address]Yjztsdl Ql (U)>1000AbnormalNEGProMedica Bowling HospitalComment on above:Performed By: #### UA #### [facility] ([id number]) [address] [place], [place] [address]Ubtxfer Ql (U)NegativeNormalNEGProMedica Bowling HospitalComment on above:Performed By: #### UA #### [facility] ([id number]) [address], [address] [place], [place] [address]Xnzxfezja esterase Test strip Ql (U)NegativeNormalNEGProMedica Bowling HospitalComment on above:Result Comment: HIGH CONCENTRATIONS OF GLUCOSE MAY DECREASE THE REACTIVITY OF THE DIPSTICK LEUKOCYTE TEST PAD.Performed By: #### UA #### [facility] ([id number]) [address] [place], [place] [address]Aikmnjk Ql (U)NegativeNormalNEGProMedica Bowling HospitalComment on above:Performed By: #### UA #### [facility] ([id number]) [address] [place], [place] [address]pF (U)6.0 [pH]Normal5.0-8.5ProMedica Bowling HospitalComment on above:Performed By: #### UA #### [facility] ([id number]) [address] [place], [place] [address]Thfvsmb Ql (U)NegativeNormalNEGProMedica Bowling HospitalComment on above:Performed By: #### UA #### [facility] ([id number]) [address] [place], [place] [address]Kfbrndxz gravity (U) [Rel density]1.812Apjsgo9.003-1.035 [facility] CampusComment on above:Performed By: #### UA #### [facility] ([id number]) [address] [place], [place] [address]WSZHEWKBWTKZBVOfmuppQDHHSDoyNdpyru [place] HospitalComment on above:Performed By: #### UA #### [facility] ([id number]) [address] [place], [place] [address]Hrtlfsmijgao (U) [Mass/Vol]mg/dLNormal<1.1PJ.W. Ruby Memorial HospitalComment on above:Performed By: #### UA #### [facility] ([id number]) [address] [place] [address] CULTUREon 84-27-4207Enbdxdzf identified Cx Nom (U)CULTURE RESULTS <10,000 ORGANISMS/ML NORMAL URO GENITAL FLORANoMcKitrick Hospital Comment on above:Performed By: #### 630-4 #### [facility] ([id number]) [address], [address] [place] [address]Kdyextovlxhs 18-87-8462Jyzbnxvqh Ql (U)NegativeNegative^Negative ProMedica Health SystemColor (U)YELLOWYELLOW^YELLOWAultman Orrville Hospital [facility] System Glucose (U) [Mass/Vol]mg/dLAbnormalNegative^Negative mg/dLWashington County Tuberculosis HospitalMediProMedica [facility] Hospital SystemHemoglobin Auto test strip Ql (U)NegativeNegative^NegativeWashington County Tuberculosis HospitalMedica Health SystemInterpretation and review of laboratory resultsAbnormalProDch Regional Medical Center Health SystemKetones (U) [Mass/Vol]NegativeNegative^Negative mg/dLMadison Health SystemLeukocyte esterase Auto test strip Ql (U)NegativeNegative^Negative ProMedica Health SystemComment on above:HIGH CONCENTRATIONS OF GLUCOSE MAY DECREASE THE REACTIVITY OF THE DIPSTICK LEUKOCYTE TEST PAD.Nitrite Auto test strip Ql (U)NegativeNegative^NegativeWashington County Tuberculosis HospitalMedica Health SystempH (U)6.0 [pH]5.0 - 8.5PKettering Memorial HospitalProtein (U) [Mass/Vol]NegativeNegative^Negative mg/dL [facility]inas Medical Centerpecific gravity Refractometry automated (U) [Rel density]1.0151.003 - 1.035ProOhiohealth Shelby HospitalTurbidity Ql (U)CLEAR CLEAR^CLEARWhite HospitalUrobilinogen Qn (U)NINFPWellSpan Waynesboro HospitalaPTT Coag (PPP) [Time]on 81-51-7478oILZ Coag (Bld) [Time] 32 zRloqrt42-66XboJtwrnqTrinity Health System East CampusComment on above:Performed By: #### PINR, 77826-3, CBCA, HA1C, BMP #### [facility] ([id number]) [address] [place], [place] [address]EX Cervical spine Viewson 18-88-4258Fkvytsgehr: Follow-up post surgery. TECHNIQUE: Frontal, lateral, views of cervical spine are obtained and compared to prior exam dated 06/27/2023. FINDINGS: Interdisc fusion device at C5-6 and C6-7 appears unchanged. Prevertebral soft tissues arewithin normal limits. Moderate degenerative disc change noted at C4-5 unchanged. Straightening of cervical spine noted may relate to pain. Extreme lung apices are clear. No significant facet degenerative change identified. No cervical ribs identified. IMPRESSION: 1. Unchanged hardware without evidence for complication. Finalized by Vivien Wang MD on 12/13/2023 2:59 PMSECTRAPACSAchinger, Vivien Brizuela MD - 12/13/2023 Indication: Follow-up post surgery. TECHNIQUE: Frontal, lateral, views of cervical spine are obtained and compared to prior exam dated 06/27/2023. FINDINGS: Interdisc fusion device at C5-6 and C6-7 appears unchanged. Prevertebral soft tissues arewithin normal limits. Moderate degenerative disc change noted at C4-5 unchanged. Straightening of cervical spine noted may relate to pain. Extreme lung apices are clear. No significant facet degenerative change identified. No cervical ribs identified. IMPRESSION: 1. Unchanged hardware without evidence for complication. Finalized by Vivien Wang MD on 12/13/2023 2:59 PM [facility] Hospital LimaCafe PressXR Cervical spine ViewsOrdered By: Vivien Wagn on 86-93-9195QpjNqzwzf [facility] Work Phone: XR SPINE CERVICAL 3 VWS OR LESSon 01-41-0931KB SPINE CERVICAL 3 VWS OR LESSXR SPINE CERVICAL 3 VWS OR LESS Indication: Follow-up post surgery. TECHNIQUE: Frontal, lateral, views of cervical spine are obtained and compared to prior exam dated 06/27/2023. FINDINGS: Interdisc fusion device at C5-6 and C6-7 appears unchanged. Prevertebral soft tissues arewithin normal limits. Moderate degenerative disc change noted at C4-5 unchanged. Straightening of cervical spine noted may relate to pain. Extreme lung apices are clear. No significant facet degenerative change identified. No cervical ribs identified. IMPRESSION: 1. Unchanged hardware without evidence for complication. Finalized by Vivien Wang MD on 12/13/2023 2:59 PMNParkview Health Montpelier HospitalXR Cervical spine Viewson [id number] Study observation (narrative)[facility] Hospital LimaContactPoint C.S[facility] Mott Children'S HospitalCT LUMBAR SPINE W CONTon 87-65-2766SP LUMBAR SPINE W CONTCT LUMBAR SPINE W CONT CT lumbar myelogram HISTORY: Low back pain, lumbar stenosis, previous discectomies COMPARISON: 06/12/2019 TECHNIQUE: CT myelogram performed according to standard protocol. FINDINGS: On the postcontrast images there is contrast located both within the thecal sac and likely within the subdural space. Opacification of the thecal sac is adequate for diagnosis. Partial visualization of spinal stimulator device. Paravertebral soft tissues are otherwise unremarkable. Lumbar vertebral body heights and alignment are preserved. No compression deformities. Conus medullaris terminates at T12. Normal distribution of cauda equina nerve roots in the thecal sac. T12-L1, L1-2, L2-3, L3-4, and L4-5: No significant disc bulge or protrusion at these levels. No central canal or neural foraminal stenosis. L5-S1: Previously seen large right disc extrusion at L5-S1 is no longer visible compatible with interval discectomy changes. There is disc height loss at this level. In the left subarticular region at this level there is soft tissue attenuation material containing a small focus of air (axial image 108, sagittal image 44), possibly a small recurrent disc protrusion in this region and/or fibrosis. This appears to result in compression upon the traversing left S1 nerve root. No high-grade central canal stenosis at this level. There is bilateral neural foraminal stenosis. IMPRESSION: * Postsurgical changes from previous discectomy at L5-S1 with large right disc extrusion at this level no longer visible. However, there are findings suggestive of either recurrent disc protrusion inthe left subarticular region at this level or presence of scar tissue that appears to result in compression upon the traversing left S1 nerve root. All CT scans at this facility use dose modulation, iterative reconstruction, and/or weight based dosing when appropriate to reduce radiation dose to as low as reasonably achievable. Finalized by Mathew Vee MD on 11/11/2023 9:58 [facility] Lumbar spine W contrast La 87-91-4527BU lumbar myelogram HISTORY: Low back pain, lumbar stenosis, previous discectomies COMPARISON: 06/12/2019 TECHNIQUE: CT myelogram performed according to standard protocol. FINDINGS: On the postcontrast images there is contrast located both within the thecal sac and likely within the subdural space. Opacification of the thecal sac is adequate for diagnosis. Partial visualization of spinal stimulator device. Paravertebral soft tissues are otherwise unremarkable. Lumbar vertebral body heights and alignment are preserved. No compression deformities. Conus medullaris terminates at T12. Normal distribution of cauda equina nerve roots in the thecal sac. T12-L1, L1-2, L2-3, L3-4, and L4-5: No significant disc bulge or protrusion at these levels. No central canal or neural foraminal stenosis. L5-S1: Previously seen large right disc extrusion at L5-S1 is no longer visible compatible with interval discectomy changes. There is disc height loss at this level. In the left subarticular region at this level there is soft tissue attenuation material containing a small focus of air (axial image 108, sagittal image 44), possibly a small recurrent disc protrusion in this region and/or fibrosis.This appears to result in compression upon the traversing left S1 nerve root. No high-grade central canal stenosis at this level. There is bilateral neural foraminal stenosis. IMPRESSION: * Postsurgical changes from previous discectomy at L5-S1 with large right disc extrusion at this level no longer visible. However, there are findings suggestive of either recurrent disc protrusion inthe left subarticular region at this level or presence of scar tissue that appears to result in compression upon the traversing left S1 nerve root. All CT scans at this facility use dose modulation, iterative reconstruction, and/or weight based dosing when appropriate to reduce radiation dose to as low as reasonably achievable. Finalized by Mathew Vee MD on 11/11/2023 9:58 Mathew Farah MD - 11/11/2023 CT lumbar myelogram HISTORY: Low back pain, lumbar stenosis, previous discectomies COMPARISON: 06/12/2019 TECHNIQUE: CT myelogram performed according to standard protocol. FINDINGS: On the postcontrast images there is contrast located both within the thecal sac and likely within the subdural space. Opacification of the thecal sac is adequate for diagnosis. Partial visualization of spinal stimulator device. Paravertebral soft tissues are otherwise unremarkable. Lumbar vertebral body heights and alignment are preserved. No compression deformities. Conus medullaris terminates at T12. Normal distribution of cauda equina nerve roots in the thecal sac. T12-L1, L1-2, L2-3, L3-4, and L4-5: No significant disc bulge or protrusion at these levels. No central canal or neural foraminal stenosis. L5-S1: Previously seen large right disc extrusion at L5-S1 is no longer visible compatible with interval discectomy changes. There is disc height loss at this level. In the left subarticular region at this level there is soft tissue attenuation material containing a small focus of air (axial image 108, sagittal image 44), possibly a small recurrent disc protrusion in this region and/or fibrosis.This appears to result in compression upon the traversing left S1 nerve root. No high-grade centralcanal stenosis at this level. There is bilateral neural foraminal stenosis. IMPRESSION: * Postsurgical changes from previous discectomy at L5-S1 with large right disc extrusion at this level no longer visible. However, there are findings suggestive of either recurrent disc protrusion inthe left subarticular region at this level or presence of scar tissue that appears to result in compression upon the traversing left S1 nerve root. All CT scans at this facility use dose modulation, iterative reconstruction, and/or weight based dosing when appropriate to reduce radiation dose to as low as reasonably achievable. Finalized by Mathew Vee MD on 11/11/2023 9:58 AM [facility] Area HospitalRadiology Study observation (narrative)White HospitalIR MYELOGRAM LUMBAR COMPLETEon 05-91-8518YT MYELOGRAM LUMBAR COMPLETEIR MYELOGRAM LUMBAR COMPLETE FLUOROSCOPIC GUIDED LUMBAR MYELOGRAM HISTORY: Back pain. COMPARISON: 06/12/2019 PROCEDURE: The risks, benefits and alternatives of the procedure were explained in detail to the patient and both verbal and written informed consent were obtained. The patient was placed prone on the fluoroscopy table. A kimberly was made on the patient's skin at theL3-4 level. The skin was prepped and draped in usual sterile fashion. A timeout was performed verifying the correct patient, site and procedure. Local anesthesia was administered in the skin and subcutaneous tissues using 3 mL 1% lidocaine. Under fluoroscopic guidance, a 22-gauge spinal needle was inserted atraumatically into the thecal sac. Position of needle confirmed by visualization of clear CSF. Next, 7 mL of Omnipaque 300 was administered into the thecal sac. The needle was then removed. The patient tolerated the procedure well and there were no immediate complications. The patient wastransferred to the CT suite in stable condition for the CT portion of this study. Reference air kerma 49.2 mGy. IMPRESSION: Uncomplicated fluoroscopic guided lumbar myelogram. CT to follow, which will be reported seperately. Finalized by Mathew Vee MD on 11/11/2023 9:51 AMNUniversity Hospitals Lake West Medical CenterRF Lumbar spine Views W contrast ITon 75-30-2466RNQSIVDVPBED GUIDED LUMBAR MYELOGRAM HISTORY: Back pain. COMPARISON: 06/12/2019 PROCEDURE: The risks, benefits and alternatives of the procedure were explained in detail to the patient and both verbal and written informed consent were obtained. The patient was placed prone on the fluoroscopy table. A kimberly was made on the patient's skin at theL3-4 level. The skin was prepped and draped in usual sterile fashion. A timeout was performed verifying the correct patient, site and procedure. Local anesthesia was administered in the skin and subcutaneous tissues using 3 mL 1% lidocaine. Under fluoroscopic guidance, a 22- gauge spinal needlewas inserted atraumatically into the thecal sac. Position of needle confirmed by visualization of clear CSF. Next, 7 mL of Omnipaque 300 was administered into the thecal sac. The needle was then removed. The patient tolerated the procedure well and there were no immediate complications. The patient wastransferred to the CT suite in stable condition for the CT portion of this study. Reference air kerma 49.2 mGy. IMPRESSION: Uncomplicated fluoroscopic guided lumbar myelogram. CT to follow, which will be reported seperately. Finalized by Mathew Vee MD on 11/11/2023 9:51 Mathew Farah MD - 11/11/2023 FLUOROSCOPIC GUIDED LUMBAR MYELOGRAM HISTORY: Back pain. COMPARISON: 06/12/2019 PROCEDURE: The risks, benefits and alternatives of the procedure were explained in detail to the patient and both verbal and written informed consent were obtained. The patient was placed prone on the fluoroscopy table. A kimberly was made on the patient's skin at theL3-4 level. The skin was prepped and draped in usual sterile fashion. A timeout was performed verifying the correct patient, site and procedure. Local anesthesia was administered in the skin and subcutaneous tissues using 3 mL 1% lidocaine. Under fluoroscopic guidance, a 22- gauge spinal needlewas inserted atraumatically into the thecal sac. Position of needle confirmed by visualization of clear CSF. Next, 7 mL of Omnipaque 300 was administered into the thecal sac. The needle was then removed. The patient tolerated the procedure well and there were no immediate complications. The patient wastransferred to the CT suite in stable condition for the CT portion of this study. Reference air kerma 49.2 mGy. IMPRESSION: Uncomplicated fluoroscopic guided lumbar myelogram. CT to follow, which will be reported seperately. Finalized by Mathew Vee MD on 11/11/2023 9:51 AM AltobridgeRF Lumbar spine Views W contrast ITOrdered By: Mathew Vee on 72-42-5498WasCdtmnhKettering Memorial Hospital Work Phone: PLATELET COUNT AND MPVon 92-12-6012Rptelpdm mean volume (Bld) [Entitic vol]9.1 fLNormal7-12POhioHealth Arthur G.H. Bing, MD, Cancer CenterComment on above:Performed By: #### PLTCT, PINR #### [facility] ([id number]) [address] [place] [address] 43705Tiokprlys (Bld) [#/Vol]238 10*3/iFVonvke147-680LkvVahynk Fremont HospitalComment on above:Performed By: #### PLTCT, PINR #### [facility] ([id number]) [address] [place] [address] 29397UTVKEGC AND INRon 22-42-2949IHL Coag (PPP) [Relative time]0.9 {INR}Normal0.8-1.1POhioHealth Arthur G.H. Bing, MD, Cancer CenterComment on above:Performed By: #### PLTCT, PINR #### [facility] ([id number]) [address] [place] [address] 87668VD Coag (PPP) [Time]10.3 sNormal9.8-13.2POhioHealth Arthur G.H. Bing, MD, Cancer CenterComment on above:Result Comment: NEW REFERENCE RANGEPerformed By: #### PLTCT, PINR #### [facility] ([id number]) [address] [place] [address] 35427WW Lumbar spine Views W contrast ITon 74-00-8827Qiuobdppc Study observation (narrative)White HospitalAPTTon 12-58-8311qKPW Coag (PPP) [Time]29 [facility] HospitalGlucose Glucometer (BldC) [Mass/Vol]on 34-25-7764Lwrbrtx [Mass/Vol]177 mg/oIQatc22 - 99 mg/dLWhite Hospital Interpretation and review of laboratory resultsAbnormalCoatesville Veterans Affairs Medical CenterHemoglobinon 86-14-3291Lyaivaujfu (Bld) [Mass/Vol]15.5 g/dL13.0 - 17.0 g/dLWhite HospitalNo Panel Informationon 06-11-2023 [facility] SystemPlatelet counton 46-05-8421Hscurskk mean volume (Bld) [Entitic vol]9.5 fL7 - [address] [facility] SystemPlatelets (Bld) [#/Vol]219 10*3/uLProOhiohealth Shelby HospitalXR Cervical spine Viewson 82-88-8116OT SPINE CERVICAL 3 VWS OR LESS HISTORY: Neck pain. COMPARISON: None. IMPRESSION: Artificial discs at C5-C6, C6-C7, no hardware complication. Prevertebral soft tissue thickening, emphysema, expected postoperatively. Preserved cervical vertebral body heights. Straightening typical cervical lordosis. Mild/moderate disc height loss at C4-C5. Finalized by Miguelangel Barba MD on 06/11/2023 8:57 AMSECTMiguelangel Tobias MD - 06/11/2023 XR SPINE CERVICAL 3 VWS OR LESS HISTORY: Neck pain. COMPARISON: None. IMPRESSION: Artificial discs at C5-C6, C6-C7, no hardware complication. Prevertebral soft tissue thickening, emphysema, expected postoperatively. Preserved cervical vertebral body heights. Straightening typical cervical lordosis. Mild/moderate disc height loss at C4-C5. Finalized by Miguelangel Barba MD on 06/11/2023 8:57 AM White HospitalRadiology Study observation (narrative)White HospitalXR Cervical spine ViewsOrdered By: Miguelangel Barba on 04-17-6940ApoSewetiKettering Memorial Hospital Work Phone: aPTT Coag (PPP) [Time]on 63-49-1495ZbfZxqfvoKettering Memorial HospitalABO Rh Repeaton 40-45-6875VHDFAweFpdhnqThe University of Toledo Medical CenterRh Nom (Bld)Positive Punxsutawney Area HospitalGlucose Glucometer (BldC) [Mass/Vol]on 60-43-6825Xkvodjo [Mass/Vol]197 mg/iZDhbh53 - 99 mg/dLWhite HospitalInterpretation and review of laboratory resultsAbnormalProWinnebago Mental Health Institute SystemGlucose [Mass/Vol]167 mg/oFLmyl48 - 99 mg/dL [facility] SystemInterpretation and review of laboratory resultsAbnormal ProMcrossbridge behavioral healtha [facility] SystemProLima City Hospital SystemGlucose [Mass/Vol]143 mg/kZHjek41 - 99 mg/dLProSumma Health Barberton Campusca [facility] SystemInterpretation and review of laboratory results AbnormalProWinnebago Mental Health Institute SystemGlucose [Mass/Vol]194 mg/kEBigi61 - 99 mg/dLMadison Health SystemInterpretation and review of laboratory resultsAbnormalProWinnebago Mental Health Institute SystemGlucose [Mass/Vol]246 mg/dHXkzn78 - 99 mg/dLMadison Health SystemInterpretation and review of laboratory resultsAbnormRipon Medical Center SystemPlatelet counton 45-13-5355Dstorbrh mean volume (Bld) [Entitic vol]9.3 fL7 - [address] [address] [facility] SystemPlatelets (Bld) [#/Vol]199 10*3/uLProDanville State HospitalRF Guidance for injection of Spine facet jointon 70-83-7580HE FLUORO GUIDANCE SPINAL PUNCTURE OPERATIVE HISTORY: Corpectomy. COMPARISON: None. IMPRESSION: Reference air kerma 4.4 mGy. Fluoroscopic guidance provided. Please see details within procedural/operative note. Finalized by Beto Munson MD on 06/10/2023 9:45 PMSBeto Le MD - 06/10/2023 [place] FLUORO GUIDANCE SPINAL PUNCTURE OPERATIVE HISTORY: Corpectomy. COMPARISON: None. IMPRESSION: Reference air kerma 4.4 mGy. Fluoroscopic guidance provided. Please see details within procedural/operative note. Finalized by Beto Munson MD on 06/10/2023 9:45 PM [facility] SystemRadiology Study observation (narrative)White HospitalRF Guidance for injection of Spine facet jointOrdered By: Beto Munson on 49-71-5136HiyRgxshtKettering Memorial Hospital Work Phone: ABO Rh Repeaton 04-16-9281CFBCMnhRlyxepThe University of Toledo Medical Center Rh Nom (Bld)PositivePunxsutawney Area HospitalAPTTon 61-97-9292kQXA Coag (PPP) [Time]33 [facility] HospitalBasi Metabolic Panel on 27-13-2033Flnoo gap [Moles/Vol]9 mmol/L5 - 15 mmol/[facility] Calcium [Mass/Vol]10.1 mg/dL8.5 - 10.5 mg/dLWhite HospitalChloride [Moles/Vol]98 mmol/L98 - 109 mmol/[facility] SystemCO2 [Moles/Vol]28 mmol/L22 - 32 mmol/[facility] HospitalCreatinine [Mass/Vol]0.54 mg/dLLow 0.60 - 1.30 mg/dLWhite HospitalComment on above:METHOD TRACEABLE TO IDPA STANDARDeGFR (CKD-EPI)non-race dependent- [facility] Comment on above: Reported eGFR is based on the CKD-EPI 2020 equation that does not use a race coefficient. Glucose [Mass/Vol]227 mg/oBIczl44 - 99 mg/dLWhite Hospital Interpretation and review of laboratory resultsAbnormalWhite Hospital Potassium [Moles/Vol]3.8 mmol/L3.5 - 5.0 mmol/[facility] SystemSodium [Moles/Vol]135 mmol/L134 - 146 mmol/[facility] HospitalUrea nitrogen [Mass/Vol]12 mg/dL5 - 23 mg/dLPunxsutawney Area HospitalCBC auto differentialon 74-40-4131Dwtlqmars (Bld) [#/Vol]0.1 10*3/[facility] HospitalBasophils/100 WBC (Bld)1.0 %White HospitalEosinophils (Bld) [#/Vol]0.3 10*3/uLWhite HospitalEosinophils/100 WBC (Bld)2.6 %White HospitalErythrocyte distribution width (RBC) [Ratio]14.4 %11.5 - 15.0 % White HospitalHematocrit (Bld) [Volume fraction]49.8 %High39 - 49 % White HospitalHemoglobin (Bld) [Mass/Vol]16.9 g/dL13.0 - 17.0 g/dL White HospitalInterpretation and review of laboratory resultsAbnormal White HospitalLymphocytes (Bld) [#/Vol]3.2 10*3/uLWhite HospitalLymphocytes/100 WBC (Bld)29.1 %[facility] HospitalH (RBC) [Entitic mass]28.9 pg27 - 34 [facility] HospitalMCHC (RBC) [Mass/Vol]34.0 g/dL32 - 36 g/dLWhite HospitalMCV (RBC) [Entitic vol]85 fL80 - 100 [facility] Medical CenterMonocytes (Bld) [#/Vol]0.6 10*3/uLWhite Hospital Monocytes/100 WBC (Bld)5.1 %White HospitalNeutrophils (Bld) [#/Vol]6.9 10*3/uLSentara Norfolk General HospitalNeutrophils/100 WBC (Bld)62.2 %White HospitalPlatelet mean volume (Bld) [Entitic vol]9.5 fL7 - 12 [facility] Medical CenterPlatelets (Bld) [#/Vol]235 10*3/uLWhite HospitalRBC (Bld) [#/Vol]5.85 10*6/[facility] HospitalWBC corrected for nucl RBC Auto (Bld) [#/Vol]11.1HighPunxsutawney Area HospitalHemoglobin A1con 88-38-8102Rmgjzuk glucose Estimated from glycated hemoglobin (Bld) [Mass/Vol]318 mg/dLWhite HospitalHbA1c (Bld) [Mass fraction]12.7 %High 4.4 - 5.6 %White HospitalComment on above:NOTE ADA Guidelines Result HgbA1c Normal : less than 5.7 % Prediabetes : 5.7 % to 6.4 % Diabetes : > 6.4 % Use with caution in patients with abnormal hemoglobin variants as the half-life of red blood cells and in vivo glycation rates are affected. Interpretation and review of laboratory resultsAbnoWatertown Regional Medical CenterMRSA DNA ZULMA+probe Ql (Unsp spec)on 79-56-0808SggFjwgygKettering Memorial HospitalMrsa Pcr nasal swabon 11-47-3418GSCN DNA ZULMA+probe Ql (Unsp spec) NegativeNegative^NegativeWhite HospitalNo Panel Informationon 86-84-0512OdzZanserKettering Memorial HospitalProtime & INRon 72-58-4202RNG Coag (PPP) [Relative time]0.9 {INR}White HospitalPT Coag (PPP) [Time]10.3 s White HospitalType and screen(includes indirect michael)on 00-42-6492XOG AProOhiohealth Shelby HospitalRh Nom (Bld)PositivePunxsutawney Area HospitalUrinalysison 06-36-0902Bbwgeyvbl Ql (U)NegativeNegative^Negative White HospitalColor (U)YELLOWYELLOW^YELLOWWhite Hospital Glucose (U) [Mass/Vol]mg/dLAbnormalNegative^Negative mg/dLWhite HospitalHemoglobin Auto test strip Ql (U)NegativeNegative^NegativeWhite HospitalInterpretation and review of laboratory resultsAbnoOnslow Memorial HospitalKetones (U) [Mass/Vol]NegativeNegative^Negative mg/dLWhite HospitalLeukocyte esterase Auto test strip Ql (U)NegativeNegative^Negative White HospitalComment on above:HIGH CONCENTRATIONS OF GLUCOSE MAY DECREASE THE REACTIVITY OF THE DIPSTICK LEUKOCYTE TEST PAD.Nitrite Auto test strip Ql (U)NegativeNegative^NegativeWhite HospitalpH (U)7.0 [pH]5.0 - 8.5PKettering Memorial HospitalProtein (U) [Mass/Vol]NegativeNegative^Negative mg/dL [facility]inas Medical Centerpecific gravity Refractometry automated (U) [Rel density]1.0351.003 - 1.035White HospitalTurbidity Ql (U)CLEAR CLEAR^CLEARWhite HospitalUrobilinogen Qn (U)NINFPWellSpan Waynesboro HospitalAPTTon 58-98-2571GZKMGCUZE PARTIAL THROMBOPLASTIN TIME IN PPP BY COAGULATION ASSAY24.6 LgksayaFga51.0-35.0UnMercy Health Perrysburg HospitalComment on above:Result Comment: Clinical significance of the APTT is questionable in the presence of heparin.Performed By: #### [id number] #### [facility]) [address]AMPUSPriti [place], [place] [address]XSAFUWAKZE, SERUMon 27-66-8211Wnqjcvdopo [Mass/Vol]0.63 mg/dLLow 0.70-1.30UnMercy Health Perrysburg HospitalComment on above:Performed By: #### [id number] #### [facility] ([facility]) [address] [place], [place] [address]VQLMEPLTAN FILTRATION RATE ML/MIN/1.73 SQ M.UHWSJPUPU498.1 mL/min/1.73m*2Normal>60.0UnMercy Health Perrysburg HospitalComment on above: Result Comment: [facility]???s estimated glomerular filtration rate (eGFR) will no longer include consideration of race in its calculation. The National Kidney Foundation???s eGFR Task Force developed new recommendations for the estimation of the glomerular filtration rate in the [place] They recommend immediate implementation of the new equation refit without the race variable in all laboratories because the calculation does not include race. In addition to not including race in the calculation and reporting, it included diversity in its development, and has acceptable performance characteristics and potential consequences that do not disproportionately affect anyone group of individuals.Performed By: #### [id number] #### [facility] ([facility]) [address] [place] [place], [place] [address]VV CERVICAL SPINE W IV CONTRASTon 52-20-7973HJ CERVICAL SPINE W IV CONTRASTCT CERVICAL SPINE W IV CONTRAST 05/08/2023 9:16 AM CLINICAL INDICATIONS: Post myelogram CT left arm pain and weakness atrophy PROTOCOL: CT cervical spine with IV contrast was TECHNIQUE: Multi detector CT axial slices of the cervical spine are obtained from the occiput to the cervical spine after myelogram. Volumetric acquisition sagittal, coronal, and 3-D reconstructions were performed and reviewed on a separate workstation. All CT scans at this facility use dose modulation, iterative reconstruction, and/or weight based dosing when appropriate to reduce radiation dose to as low as reasonably achievable COMPARISON: No prior FINDINGS: Alignment: Normal Disc spaces: Mild narrowing C5-C6. More severe narrowing C6-C7 Cord: No cord thickening No prevertebral soft tissue swelling. Paraspinous soft tissues unremarkable Facet alignment normal Spinous processes intact C2-C3: No canal stenosis or foraminal narrowing t C3-C4:: There is some uncovertebral joint degenerative change. Very mild canal stenosis and very mild right foraminal narrowing C4-C5: No canal stenosis or foraminal narrowing. C5-C6: uncovertebral joint degenerative change and posterior disc bulge eccentric to the right. Mild canal stenosis with effacement anterior thecal sac and some flattening of the right anterior surface of the cord. Moderate right and mild left foraminal narrowing. C6-C7: Uncovertebral joint degenerative change and posterior disc bulge eccentric to the right midlung. Mild canal stenosis. Mild right foraminal narrowing. Moderate left foraminal narrowing. C7-T1: No canal stenosis or foraminal IMPRESSION: *C5-C6: uncovertebral joint degenerative change and posterior disc bulge eccentric to the right. Mild canal stenosis with effacement anterior thecal sac and some flattening of the right anterior surface of the cord. Moderate right and mild left foraminal narrowing. *C6-C7: Uncovertebral joint degenerative change and posterior disc bulge eccentric to the right midlung. Mild canal stenosis. Mild right foraminal narrowing. Moderate left foraminal narrowing. Electronically signed: Bimal Buckner.[facility] CERVICAL SPINE MYELOGRAMon 13-55-1316SI CERVICAL SPINE MYELOGRAMFL CERVICAL SPINE MYELOGRAM 05/08/2023 8:24 AM CLINICAL INDICATIONS: Cervical radiculopathy TECHNOLOGIST COMMENTS: 9 mgy. 37 seconds fluoroscopy time. 6 images QUESTION FOR RADIOLOGIST: COMPARISON: No prior FINDINGS: Risks and benefits explained patient written consent obtained site overlying the L3-L4 level identified under scopic guidance, sterilely compared, locally anesthetized and a 20-gauge needle was placed into the thecal sac and approximately 15 mL of Omnipaque 240 was administered intrathecally for CT myelogram. Patient was discharged to CT immediately after procedure. Procedure done by Dr. uBckner IMPRESSION: Intra-articular administration of 15 mL Omnipaque [address] Electronically signed: Bimal Buckner.[facility] Labon [id number] Zeeshan Llanos 1975 M Date Provider Department Center 05/08/2023 2245-[facility] OPD LAB RESOURCE [facility] O[facility] No family history on fileNormalUniversity of Memorial Hermann Orthopedic & Spine HospitalNURSNOTEon 65-47-3598ZVNWQRMTMeeqwvn sat up et headache is decreasing. Ambulated to exit to with RN.NormalUnMercy Health Perrysburg HospitalPROTIME-INRon 05-08-2023 INR IN PPP BY COAGULATION ASSAY0.76Low0.90-1.10UnMercy Health Perrysburg HospitalComment on above:Result Comment: ACCCP RECOMMENDED INR FOR WARFARIN THERAPY CONDITION INR PROPHYLAXIS OF VENOUS THROMBOSIS 2-3 (HIGH-RISK SURGERY) TREATMENT OF VENOUS THROMBOSIS 2-3 TREATMENT OF PULMONARY EMBOLISM 2-3 PREVENTION OF SYSTEMIC EMBOLISM: 2-3 ACUTE MYOCARDIAL INFARCTION TISSUE HEART VALVES VALVULAR HEART DISEASE ATRIAL FIBRILLATION RECURRENT SYSTEMIC EMBOLISM MECHANICAL HEART VALVE 2.5-3.5 FROM: ORAL ANTICOAGULANTS. MECHANISM OF ACTION, CLINICAL EFFECTIVENESS, AND OPTIMAL THERAPEUTIC RANGE. CHEST 1995;108:231S-246S.Performed By: #### [id number] #### [facility] ([place]) [address] [place], [place] [address]RVPPRNIQVTV TIME (PT) IN PPP BY COAGULATION ASSAY10.7 SecondsLow 12.3-14.8UnMercy Health Perrysburg HospitalComment on above:Performed By: #### [id number] #### [facility] ([place]) [address] [place], [place] [address]Jdyqcb Visiton 82-49-6561Yiswbb-up [id number] Zeeshan Llanos 1975 M Date Provider Department Center 04/24/2023 EUGENE DOUGLAS DCC ONC DCC No family history on file Level of Service:30652 DE OFFICE/OUTPATIENT NEW MODERATE MDM 45 MINUTES Reason for Visit and Comments: cervical pain [Other]NormalUnMercy Health Perrysburg HospitalQuick Fluon 22-82-3043XKEXO Ab CF (S) [Titer]NegativeNoFlimmer Other FLUBV Ab CF (S) [Titer]NegativeMetrasens Other Tobacco Screening.on 24-70-0899Ozfewqe use status CP b) [facility] 250 DO Work Phone: Patient Letter FTMCon 53-33-4338Qcrffbt Letter FT June 04, 2022 ZEESHAN LLANOS [address] [place] [phone] Dear Zeeshan Llanos, [facility] has been trying to contact you regarding rescheduling the Cystoscopy (scope of bladder) and Urodynamics testing (bladder function test) that you cancelled in February 2022. Please call the office if you wish to reschedule this testing. Thank you. Sincerely, [facility], , Option #3NormalFisher [facility] St[facility] Medical CenterACETONE SERUMon 21-34-4802LLPPWQOUhwjlewwDxmhjwSZXLWXMONoa [facility] CampusComment on above: Performed By: #### ACETON #### [facility] [address] [address] [address] Ruperto Posadas KIMBERLY ADMITon 18-86-5613OK [Catalytic activity/Vol]133 U/L Ikxgyb54-378Vel [facility] CampusComment on above:Performed By: #### CMP, CMADM #### [facility] [address] [place] [address] Dr. Ruperto Lamb.MB [Mass/Vol]2.82 ng/mLNormal<=3.60[facility] Comment on above:Performed By: #### CMP, CMADM #### [facility] [address] [place] [address] Dr. Ruperto MonroeHSTROP8.0 pg/mLNormal4.0-76.1The [facility] on above:Result Comment: CUT-OFF POINTS HAVE BEEN ESTABLISHED BASED ON THE FOURTH UNIVERSAL DEFINITIONS OF MYOCARDIAL INFARCTION. THE UPPER REFERENCE LIMIT (URL) OF TROPONIN, DEFINED THE 99TH PERCENTILE OF cTnI DISTRIBUTION IN A REFERENCE POPULATION, HAS BEEN CONFIRMED THE DECISION THRESHOLD FOR DC DIAGNOSIS.Performed By: #### CMP, CMADM #### [facility] [address] [place] [address] Dr. Ruperto CaseO94 ng/oAYipoge82-21Kng [facility] CampusComment on above: Performed By: #### CMP, CMADM #### [facility] [address] [place] [address] Dr. Ruperto Clarke AUTO DIFFon 56-52-0296IHAX #0.1 103/ulNormal0.0-0.1The [facility] CampusComment on above:Performed By: #### CMREP #### [facility] [address] [place] [address] Dr. Ruperto MonroeBasophils/100 WBC (Bld)0.5 %Normal0.2-2.0[facility] Comment on above:Performed By: #### CMREP #### [facility] [address] [place] [address] Dr. Ruperto Zapien #0.2 103/ulNormal0.0-0.7The [facility] CampusComment on above: Performed By: #### CMREP #### [facility] [address] [place] [address] Dr. Ruperto Bolañososinophils/100 WBC (Bld)1.8 %Normal0.9-7.0The [facility] Comment on above:Performed By: #### CMREP #### [facility] [address] [place] [address] Dr. Ruperto Bolañosrythrocyte distribution width (RBC) [Ratio]14.1 %Ibvksd46.0-15.0 The [facility] CampusComment on above:Performed By: #### CMREP #### [facility] [address] [place] [address] Dr. Ruperto MonroeHematocrit (Bld) [Volume fraction]47.5 %Lxlunp67.0-54.0The [facility] CampusComment on above:Performed By: #### CMREP #### [facility] [address] [place] [address] Dr. Ruperto MonroeHemoglobin (Bld) [Mass/Vol]16.1 g/fTZlumer64.0-18.0The [facility] CampusComment on above:Performed By: #### CMREP #### [facility] [address] [place] [address] Dr. Ruperto Steen #0.06 10e3/ulCritically high0.00-0.03The [facility] Comment on above:Performed By: #### CMREP #### [facility] [address] [place] [address] Dr. Ruperto Steen %0.5 %Normal0.0-0.5The [facility] CampusComment on above: Performed By: #### CMREP #### [facility] [address] [place] [address] Dr. Ruperto Sullivan #2.8 103/ulNormal1.2-3.8The [facility] CampusComment on above:Performed By: #### CMREP #### [facility] [address] [place] [address] Dr. Ruperto Hensleyhocytes/100 WBC (Bld)21.2 %Hqzhtn54.5-60.0The [facility] CampusComment on above:Performed By: #### CMREP #### [facility] [address] [place] [address] Dr. Ruperto MonroeMANUAL DIFF REQNONormalThe [facility] CampusComment on above: Performed By: #### CMREP #### [facility] [address] [place] [address] Dr. Ruperto Card (RBC) [Entitic mass]28.9 nrPdniay35.9-34.0The [facility] CampusComment on above:Performed By: #### CMREP #### [facility] [address] [place] [address] Dr. Ruperto Olson (RBC) [Mass/Vol]33.9 g/vTVpofbv62.9-35.2The [facility] CampusComment on above:Performed By: #### CMREP #### [facility] [address] [place] [address] Dr. Ruperto Mckeon (RBC) [Entitic vol]85.1 wOQqhkkx35.0-94.0The [facility] CampusComment on above:Performed By: #### CMREP #### [facility] [address] [place] [address] Dr. Ruperto Melton #0.9 103/ulCritically high0.3-0.8ThC[facility] Clinic [facility] Comment on above:Performed By: #### CMREP #### [facility] [address] [place] [address] Dr. Ruperto Purdyocytes/100 WBC (Bld)6.6 %Normal1.7-12.0[facility] Comment on above:Performed By: #### CMREP #### [facility] [address] [place] [address] Dr. Ruperto Alcantara #9.2 103/ulCritically high1.4-6.5The [facility] Comment on above:Performed By: #### CMREP #### [facility] [address] [place] [address] Dr. Ruperto Atkinsophils/100 WBC (Bld)69.4 %Skpxiq50.0-75.0The [facility] CampusComment on above:Performed By: #### CMREP #### [facility] [address] [place] [address] Dr. Ruperto Gordon mean volume (Bld) [Entitic vol]10.5 fLNormal9.5-13.5The [facility] CampusComment on above:Performed By: #### CMREP #### [facility] [address] [place] [address] Dr. Ruperto MonroePLT248 103/ppNtywlj836-925WssOhiohealth Dublin Methodist HospitalComment on above: Performed By: #### CMREP #### [facility] [address] [address] [address] Ruperto MonroeRBC5.58 106/ulNormal4.70-6.10The [facility] CampusComment on above:Performed By: #### CMREP #### [facility] [address] [address] [address] Ruperto MonroeWBC13.3 103/ulCritically high4.0-11.0The [facility] CampusComment on above:Performed By: #### CMREP #### [facility] [address] [place] [address] Dr. Ruperto MonroeCovid-19 PCR ([facility])on 71-37-2020NNIQ-CoV-2 (COVID-19) RNA ZULMA+probe Ql (Unsp spec)Not detectedNormalNOT DETECTEDOhiohealth Dublin Methodist Hospital Comment on above:Result Comment: When diagnostic testing is negative, the possibility of a false negative should be considered in the context of a patient's recent exposures and the presence of clinical signs and symptoms consistent with SARS-CoV-2. This test is not yet approved or cleared by the [place] FDA. When there are no FDA-approved or cleared tests available, and other criteria are met, FDA can make tests available under an emergency access mechanism called an Emergency Use Authorization (EUA). The EUA for this test is supported by the Maintenance Superintendent of Health and Human Service's declaration that circumstances exist to justify the emergency use of in vitro diagnostics for the detection and/or diagnosis of the virus that causes COVID-19. This EUA will remain in effect for the duration of the COVID-19 declaration justifying emergency of IVDs, unless it is terminated or revoked by the FDA (after which the test may no longer be used).Performed By: #### CMP, CMADM #### [facility] [address] [place] [address] Dr. Hickey ChangEJamison URINE PROFILEon [id number] Ql (U)NegativeNormal NEGATIVEThe [facility] CampusComment on above:Performed By: #### CMP, CMADM #### [facility] [address] [address] [address] Ruperto Donaldsonarity (U)CLEARNormalCLEAROhiohealth Dublin Methodist HospitalComhawthorn center on above: Performed By: #### CMP, CMADM #### [facility] [address] [address] [address] Ruperto Yun (U)LT. YELLOWNormalYELLOWOhiohealth Dublin Methodist HospitalComhawthorn center on above:Performed By: #### CMP, CMADM #### [facility] [address] [address] [address] Ruperto Ngo micrscopic examination will be performed if indicated. NormalUniversity Hospitals Ahuja Medical Center on above:Performed By: #### CMP, CMADM #### [facility] [address] [address] [address] Ruperto MonroeGlucose Ql (U)>1000AbnormalNEGATIVEOhiohealth Dublin Methodist HospitalComhawthorn center on above:Performed By: #### CMP, CMADM #### [facility] [address] [address] [address] Ruperto MonroeHemoglobin Ql (U)TRACE-INTACTAbnormalNEGATIVEOhiohealth Dublin Methodist HospitalComhawthorn center on above:Performed By: #### CMP, CMADM #### [facility] [address] [address] [address] Ruperto MonroeKetones Ql (U)NegativeNormalNEGATIVEOhiohealth Dublin Methodist HospitalComhawthorn center on above:Performed By: #### CMP, CMADM #### [facility] [address] [address] [address] Ruperto MonroeLEUKOCYTESNegativeNormalNEGATIVEUniversity Hospitals Ahuja Medical Center on above:Performed By: #### CMP, CMADM #### [facility] [address] [address] [address] Ruperto MonroeNitrite Ql (U)NegativeNormalNEGATIVEOhiohealth Dublin Methodist HospitalComhawthorn center on above:Performed By: #### CMP, CMADM #### [facility] [address] [address] [address] Ruperto Driscoll (U)5.5 [pH]Normal5-9The [facility] CampusComment on above: Performed By: #### CMP, CMADM #### [facility] [address] [address] [address] Ruperto MonroeSPEC GRAVITY<=1.583Kwqekihc6.005-<=1.025The [facility] Comment on above:Performed By: #### CMP, CMADM #### [facility] [address] [place] [address] Dr. Ruperto Ruffin PROTEINNegativeNormalNEGATIVE/ TRACEThe [facility] Comment on above:Performed By: #### CMP, CMADM #### [facility] [address] [place] [address] Dr. Ruperto Smith MICRO INDINDICATEDNormalThe [facility] CampusComment on above: Performed By: #### CMP, CMADM #### [facility] [address] [place] [address] Dr. Ruperto Hollandbilinogen Qn (U)0.2 {Estella'U}/dLNormal0.2 - 1.0The [facility] CampusComment on above:Performed By: #### CMP, CMADM #### [facility] [address] [place] [address] Dr. Ruperto Holman 14(COMP METB)on 80-57-1413Oxnulxx [Mass/Vol]3.6 g/dLNormal 3.4-5.0The [facility] CampusComment on above:Performed By: #### CMP, CMADM #### [facility] [address] [place] [address] Dr. Ruperto MonroeAlbumin/Globulin [Mass ratio]0.9 {ratio}NormalThe [facility] CampusComment on above:Performed By: #### CMP, CMADM #### [facility] [address] [place] [address] Dr. Ruperto MuhammadP [Catalytic activity/Vol]132 U/LCritically lntc33-599Zie [facility] CampusComment on above:Performed By: #### CMP, CMADM #### [facility] [address] [address] [address] Ruperto MuhammadT [Catalytic activity/Vol]32 U/MKoevrd98-50Jio [facility] CampusComment on above:Performed By: #### CMP, CMADM #### [facility] [address] [address] [address] Ruperto Gallardoon gap [Moles/Vol]15.7 mmol/LNormalThe [facility] Comment on above:Performed By: #### CMP, CMADM #### [facility] [address] [address] [address] Ruperto MonroeAST [Catalytic activity/Vol]15 U/SHpnvil48-69Dym [facility] CampusComment on above:Performed By: #### CMP, CMADM #### [facility] [address] [address] [address] Ruperto MonroeBilirubin [Mass/Vol]0.3 mg/dLNormal0.2-1.0[facility] Comment on above:Performed By: #### CMP, CMADM #### [facility] [address] [address] [address] Ruperto MonroeCalcium [Mass/Vol]9.1 mg/dLNormal8.5-10.1[facility] Comment on above:Performed By: #### CMP, CMADM #### [facility] [address] [address] [address] Ruperto MonroeChloride [Moles/Vol]92 mmol/LCritically jif22-965Bjr [facility] CampusComment on above:Performed By: #### CMP, CMADM #### [facility] [address] [address] [address] Ruperto MonroeCO2 [Moles/Vol]27.7 mmol/XEbkfov97.0-32.0The [facility] Comment on above:Performed By: #### CMP, CMADM #### [facility] [address] [place] [address] Dr. Ruperto MonroeCreatinine [Mass/Vol]0.82 mg/dLNormal0.70-1.30The [facility] CampusComment on above:Performed By: #### CMP, CMADM #### [facility] [address] [address] [address] Ruperto BolañosGFR-AF MACANESE>60Normal>=60The [facility] CampusComment on above:Performed By: #### CMP, CMADM #### [facility] [address] [address] [address] Ruperto BolañosGFR-NON AF MACANESE>60Normal>=60The [facility] CampusComment on above:Performed By: #### CMP, CMADM #### [facility] [address] [address] [address] Ruperto MonroeGlobulin (S) [Mass/Vol]4.2 g/dLNormalThe [facility] CampusComment on above:Performed By: #### CMP, CMADM #### [facility] [address] [address] [address] Ruperto MonroeGlucose [Mass/Vol]567 mg/dLCritically hokq06-255Vgc [facility] CampusComment on above:Performed By: #### CMP, CMADM #### [facility] [address] [address] [address] Ruperto MonroePotassium [Moles/Vol]3.4 mmol/LCritically low3.5-5.1The [facility] CampusComment on above:Performed By: #### CMP, CMADM #### [facility] [address] [address] [address] Ruperto MonroeProtein [Mass/Vol]7.8 g/dLNormal6.4-8.2The [facility] Comment on above:Performed By: #### CMP, CMADM #### [facility] [address] [address] [address] Ruperto MonroeSodium [Moles/Vol]132 mmol/LCritically nyp688-751Jsj [facility] Centerment on above:Performed By: #### CMP, CMADM #### [facility] [address] [address] [address] Ruperto MonroeUrea nitrogen [Mass/Vol]12.0 mg/dLNormal7.0-18.0The [facility] CampusComment on above:Performed By: #### CMP, CMADM #### [facility] [address] [place] [address] Dr. Ruperto Newman nitrogen/Creatinine [Mass ratio]14.6 mg/mgNoTriHealthComment on above:Performed By: #### CMP, CMADM #### [facility] [address] [place] [address] Dr. Ruperto Arroyo, HIGH SENSITIVITYon 61-80-4794RYMPAA9.8 pg/mLNormal 4.0-76.1The [facility] on above:Result Comment: CUT-OFF POINTS HAVE BEEN ESTABLISHED BASED ON THE FOURTH UNIVERSAL DEFINITIONS OF MYOCARDIAL INFARCTION. THE UPPER REFERENCE LIMIT (URL) OF TROPONIN, DEFINED THE 99TH PERCENTILE OF cTnI DISTRIBUTION IN A REFERENCE POPULATION, HAS BEEN CONFIRMED THE DECISION THRESHOLD FOR DC DIAGNOSIS.Performed By: #### POCGLUC #### [facility] [address] [place] [address] Dr. Ruperto Del Rio MICROSCOPIC ONLYon 79-18-4867XGEOYVYSYKCJ SEENNormalNONE SEENThe [facility] CampusComment on above:Performed By: #### ANDI, CMADM #### [facility] [address] [place] [address] Dr. Ruperto Bethea identified Cx Nom (U)NOT INDICATEDNormToledo HospitalComment on above:Performed By: #### CMP, CMADM #### [facility] [address] [place] [address] Dr. Ruperto Duval SEENNormalNONE SEENOhiohealth Dublin Methodist HospitalComment on above:Performed By: #### CMP, CMADM #### [facility] [address] [place] [address] Dr. Ruperto Sy LM Nom (Urine sed)NONE SEENNormalNONE SEENThe [facility] CampusComment on above:Performed By: #### CMP, CMADM #### [facility] [address] [place] [address] Dr. Yilan ChangEpithelial cells LM Ql (Urine sed)NONE SEENNormalNONE SEEN /RARE The [facility] CampusComment on above:Performed By: #### CMP, CMADM #### [facility] [address] [place] [address] Dr. Ruperto MonroeMUCOUSALOK SEENNormalNONE SEENThe [facility] CampusComhawthorn center on above:Performed By: #### CMP, CMADM #### [facility] [address] [place] [address] Dr. Ruperto MonroeEvjmeSMY9-0Rzshgy4-5Odo [facility] CampusComhawthorn center on above:Performed By: #### CMP, CMADM #### [facility] [address] [place] [address] Dr. Ruperto MonroeWBCALOK SEENNormalNONE SEENOhiohealth Dublin Methodist HospitalComment on above: Performed By: #### CMP, CMADM #### [facility] [address] [place] [address] Dr. Ruperto MonroeXR CHEST 1 Von [id number] CHEST 1 VEXAMINATION: XR CHEST 1 V, 04/23/2022 10:07 PM EST HISTORY: CHEST PAIN, UNSPECIFIED COMPARISON: Chest 02/24/2022. TECHNIQUE: Chest x-ray: One view. FINDINGS: SUPPORT APPARATUS/POST-SURGICAL CHANGES: None. CARDIOMEDIASTINAL SILHOUETTE: Normal. AIRWAYS/LUNGS: Normal. PLEURAL SPACES: No pleural effusion or pneumothorax. BONES AND SOFT TISSUES: Stable spinal stimulating leads in the mid thoracic spine. IMPRESSION: No acute cardiopulmonary process. Electronically authenticated by: WIL GUNN Date: 2022-04-23 23:58[facility] CenterBody fluid albumin measurement (mass/volume)Ordered By: Shaikh Khoi on 45-60-0238Yiniqoi (Body fld) [Mass/Vol]3.5 g/dL3.2-5.5FC[facility] AUTO DIFFon 05-14-4932BOOJ #0.1 103/ulNormal0.0-0.1 The [facility] CampusComhawthorn center on above:Performed By: #### POCGLUC #### [facility] [address] [address] [address] Ruperto MonroeBasophils/100 WBC (Bld)0.5 %Normal0.2-2.0The [facility] Comment on above:Performed By: #### POCGLUC #### [facility] [address] [place] [address] Dr. Ruperto Zapien #0.2 103/ulNormal0.0-0.7The [facility] CampusComment on above: Performed By: #### POCGLUC #### [facility] [address] [place] [address] Dr. Ruperto Bolañososinophils/100 WBC (Bld)1.6 %Normal0.9-7.0The [facility] Comment on above:Performed By: #### POCGLUC #### [facility] [address] [place] [address] Dr. Ruperto Bolañosrythrocyte distribution width (RBC) [Ratio]13.1 %Qhhrtg45.0-15.0 The [facility] CampusComment on above:Performed By: #### POCGLUC #### [facility] [address] [place] [address] Dr. Ruperto MonroeHematocrit (Bld) [Volume fraction]45.7 %Xekiit81.0-54.0The [facility] CampusComment on above:Performed By: #### POCGLUC #### [facility] [address] [place] [address] Dr. Ruperto MonroeHemoglobin (Bld) [Mass/Vol]15.9 g/cPCwvjjd96.0-18.0The [facility] CampusComment on above:Performed By: #### POCGLUC #### [facility] [address] [place] [address] Dr. Ruperto Steen #0.06 10e3/ulCritically high0.00-0.03The [facility] Comment on above:Performed By: #### POCGLUC #### [facility] [address] [place] [address] Dr. Ruperto Steen %0.4 %Normal0.0-0.5The [facility] CampusComment on above: Performed By: #### POCGLUC #### [facility] [address] [address] [address] Ruperto Sullivan #3.5 103/ulNormal1.2-3.8The [facility] CampusComment on above:Performed By: #### POCGLUC #### [facility] [address] [address] [address] Ruperto Hensleyhocytes/100 WBC (Bld)22.7 %Csqspn37.5-60.0The [facility] CampusComment on above:Performed By: #### POCGLUC #### [facility] [address] [place] [address] Dr. Ruperto Garcia DIFF REQNONormalThe [facility] CampusComment on above: Performed By: #### POCGLUC #### [facility] [address] [place] [address] Dr. Ruperto Card (RBC) [Entitic mass]29.4 qqElgjcf56.9-34.0The [facility] CampusComment on above:Performed By: #### POCGLUC #### [facility] [address] [place] [address] Dr. Ruperto Olson (RBC) [Mass/Vol]34.8 g/wGEptvlh70.9-35.2The [facility] CampusComment on above:Performed By: #### POCGLUC #### [facility] [address] [place] [address] Dr. Ruperto Olson (RBC) [Entitic vol]84.5 vCPgieuh60.0-94.0The [facility] CampusComment on above:Performed By: #### POCGLUC #### [facility] [address] [address] [address] Ruperto Melton #1.1 103/ulCritically high0.3-0.8The [facility] Comment on above:Performed By: #### POCGLUC #### [facility] [address] [place] [address] Dr. Ruperto Purdyocytes/100 WBC (Bld)7.0 %Normal1.7-12.0[facility] Comment on above:Performed By: #### POCGLUC #### [facility] [address] [place] [address] Dr. Ruperto Alcantara #10.4 103/ulCritically high1.4-6.5The [facility] Comment on above:Performed By: #### POCGLUC #### [facility] [address] [place] [address] Dr. Ruperto Atkinsophils/100 WBC (Bld)67.8 %Cggzol04.0-75.0[facility] HospitalComment on above:Performed By: #### POCGLUC #### [facility] [address] [place] [address] Dr. Ruperto Gordon mean volume (Bld) [Entitic vol]11.5 fLNormal9.5-13.5The [facility] CampusComment on above:Performed By: #### POCGLUC #### [facility] [address] [place] [address] Dr. Ruperto MonroePLT184 103/xsWvgwab678-503Obz [facility] CampusComment on above: Performed By: #### POCGLUC #### [facility] [address] [place] [address] Dr. Ruperto MonroeRBC5.41 106/ulNormal4.70-6.10The [facility] CampusComment on above:Performed By: #### POCGLUC #### [facility] [address] [place] [address] Dr. Ruperto MonroeWBC15.3 103/ulCritically high4.0-11.0[facility] HospitalComment on above:Performed By: #### POCGLUC #### [facility] [address] [place] [address] Dr. Ruperto Daniel ABD/PELV W CONon 96-91-4256LD ABD/PELV W CONEXAMINATION: CT ABD/PELV W CON HISTORY: UNSPECIFIED ABDOMINAL PAIN COMPARISON: 02/10/2021 TECHNIQUE: CT of the abdomen and pelvis with intravenous contrast. Dose reduction techniques were achieved by using automated exposure control and/or adjustment of mA and/or kV according to patient size and/or use of iterative reconstruction technique. FINDINGS: TUBES AND IMPLANTS: Left flank spinal stimulator LOWER CHEST: Unremarkable ABDOMEN and PELVIS ABDOMINAL WALL AND SOFT TISSUES: Unremarkable. BONES: Multilevel degenerative changes of the spine. ARTERIES: Mild aortoiliac atherosclerosis without aneurysm VEINS: Unremarkable. LYMPH NODES: Remaining prominent peripancreatic lymph nodes. PERITONEUM/ RETROPERITONEUM: Fat stranding and trace fluid is seen around the pancreatic head and uncinate process BOWEL: Moderate stool burden. No obstruction. APPENDIX: Unremarkable LIVER: Enlarged measuring 23 centimeters with steatosis GALLBLADDER: Unremarkable. BILE DUCTS: Not dilated SPLEEN: Unremarkable. PANCREAS: Pancreatic head and uncinate process appears edematous. No evidence of hemorrhage or necrosis. Splenic vein appears patent. ADRENALS: Unremarkable. KIDNEYS/ URETERS: Unremarkable. REPRODUCTIVE ORGANS: Coarse calcification without prostatomegaly URINARY BLADDER: Unremarkable. IMPRESSION: 1. Pancreatic head and uncinate process edema with surrounding fat stranding and trace fluid likely representing acute interstitial pancreatitis. No evidence of hemorrhage or necrosis. Splenic vein is patent. These findings are less likely to be related to a primary duodenal process is duodenitis. 2. Hepatomegaly with steatosis. 3. Moderate stool burden Electronically authenticated by: YURIDIA SIERRA Date: 2022-03-16 23:18NoTriHealthCovid-19 PCR (CVDTBH)on 43-63-7290HSRU-CoV-2 (COVID-19) RNA ZULMA+probe Ql (Unsp spec)Not detectedNormalNOT DETECTEDThe [facility] Comment on above:Result Comment: When diagnostic testing is negative, the possibility of a false negative should be considered in the context of a patient's recent exposures and the presence of clinical signs and symptoms consistent with SARS-CoV-2. This test is not yet approved or cleared by the [place] FDA. When there are no FDA-approved or cleared tests available, and other criteria are met, FDA can make tests available under an emergency access mechanism called an Emergency Use Authorization (EUA). The EUA for this test is supported by the [place] of Health and Human Service's declaration that circumstances exist to justify the emergency use of in vitro diagnostics for the detection and/or diagnosis of the virus that causes COVID-19. This EUA will remain in effect for the duration of the COVID-19 declaration justifying emergency of IVDs, unless it is terminated or revoked by the FDA (after which the test may no longer be used).Performed By: #### CMP, CMADM #### [facility] [address] [place] [address] Dr. Ruperto MonroeCreatinine and Glomerular filtration rate.predicted panel (S/P/Bld)Ordered By: Shaikh Khoi on 53-13-4219Pgszvdielf [Mass/Vol]0.62 mg/dL 0.64-1.27[facility] - AndersonEstimated glomerular filtration rate (GFR) non- AmericanOrdered By: Shaikh Khoi on 34-00-7364NIG/1.73 sq M.predicted among non-blacks MDRD (S/P/Bld) [Vol rate/Area]> 60 mL/MinOur Lady Of Mercy Hospital - AndersonGlobulin Calc (S) [Mass/Vol]Ordered By: Shaikh Khoi on 73-65-5862Mxjnjefd (S) [Mass/Vol]3.2 g/dLOur Lady Of Mercy Hospital - AndersonLAB TESTINGon 76-29-5797LJHY HEADERSEE SCANNED REPORT IN [facility] CenterComment on above:Performed By: #### POCGLUC #### [facility] [address] [place] [address] Dr. Ruperto Joshi FROM REF LAB03/17/22[facility] CenterComhaw[facility]orn center on above:Performed By: #### POCGLUC #### [facility] [address] [address] [address] Ruperto Ordaz TO REF LAB03/17/22[facility] on above:Performed By: #### POCGLUC #### [facility] [address] [address] [address] Ruperto Coates Panel InformationOrdered By: Shaikh Khoi on 03-17-2022 Estimated GFR ()> 60 mL/MinOur Lady Of Mercy Hospital - Anderson Comment on above:GFR estimated reference range: According to KDOQI guidelines, <60 ml/min/1.73m2 is sufficient todiagnose a patient with chronic kidney disease.Pharmacy Creatinine Clearance (ChemN/[facility] POINT OF CARE GLUCOSEon 35-33-5455Kxqondl [Mass/Vol]250 mg/dLCritically high 74-106[facility] HospitalComment on above:Performed By: #### POCGLUC #### [facility] [address], [place] [address] Dr[address] Ruperto MonroeGlucose [Mass/Vol]263 mg/dLCritically enli06-239XfwOhiohealth Dublin Methodist HospitalComment on above:Performed By: #### POCGLUC #### [facility] [address], [place] [address] Dr[address] Ruperto MonroeProtein [Mass/volume] in Serum or PlasmaOrdered By: Shaikh Khoi on 17-89-9860Mtbrajr [Mass/Vol]6.7 g/dL6.1-7.9[facility] Serum or plasma alanine aminotransferase measurement without P-5'-P (enzymatic activiOrdered By: Shaikh Khoi on 07-38-1281AJT No additional P-5'-P [Catalytic activity/Vol]28 U/Z78-68TaziwdssmCommunity Regional Medical Centererum or plasma albumin/globulin mass ratioOrdered By: Shaikh Khoi on 03-17-2022 Albumin/Globulin [Mass ratio]1.1 {ratio}[facility] Regional Medical Centererum or plasma alkaline phosphatase measurement (enzymatic activity/volume)Ordered By: Shaikh Khoi on 97-61-5934OYO [Catalytic activity/Vol]92 U/J97-42ZefybcyaoCommunity Regional Medical Centererum or plasma anion gap determinationOrdered By: Shaikh Khoi on 66-31-4120Suxix gap [Moles/Vol]18.7 mmol/L6.0-15.0[facility] Regional Medical Centererum or plasma aspartate aminotransferase measurement (enzymatic activity/volume)Ordered By: Shaikh Khoi on 33-73-3342WHU [Catalytic activity/Vol]17 U/W10-31ZinlrgjhhCommunity Regional Medical Centererum or plasma calcium measurement (mass/volume)Ordered By: Shaikh Khoi on 12-28-9719Wogmtus [Mass/Vol]9.1 mg/dL8.2-10.2FTrinity Health System East Campuserum or plasma chloride measurement (moles/volume)Ordered By: Shaikh Khoi on 03-17-2022 Chloride [Moles/Vol]96 mmol/T10-652SnrlucsukCommunity Regional Medical Centererum or plasma glucose measurement (mass/volume)Ordered By: Shaikh Khoi on 03-17-2022 Glucose [Mass/Vol]184 mg/vX34-112HmkevcfybOur Lady Of Mercy Hospital - AndersonComment on above:ADA recommended reference rangeRandom Glucose Reference Range is dependent on time and content of last meal. Glucose of more than 200 mg/dL in a nonstressed, ambulatory subject supports the diagnosisof Diabetes Mellitus.Serum or plasma potassium measurement (moles/volume)Ordered By: Shaikh Khoi on 86-77-0507Kdjnwemiy [Moles/Vol]3.7 mmol/L3.5-5.1FTrinity Health System East Campuserum or plasma sodium measurement (moles/volume)Ordered By: Shaikh Khoi on 30-24-6124Wlqauu [Moles/Vol]135 mmol/Z515-945YlpgffzlxCommunity Regional Medical Centererum or plasma total bilirubin measurement (mass/volume)Ordered By: Shaikh Khoi on 42-12-8388Acdalizug [Mass/Vol]0.4 mg/dL0.3-1.2FTrinity Health System East Campuserum or plasma total carbon dioxide measurement (moles/volume)Ordered By: Shaikh Khoi on 55-87-9555YV5 [Moles/Vol]24.0 mmol/L 22.0-30.0Community Regional Medical Centererum or plasma urea nitrogen measurement (mass/volume)Ordered By: Shaikh Khoi on 29-57-4629Qesl nitrogen [Mass/Vol]9 mg/dL9-23[facility] - AndersonCBC AUTO DIFFon 03-16-2022 BASO #0.1 103/ulNormal0.0-0.1The [facility] CampusComment on above:Performed By: #### POCGLUC #### [facility] [address] [address] [address] Ruperto MonroeBasophils/100 WBC (Bld)0.5 %Normal0.2-2.0The [facility] Comment on above:Performed By: #### POCGLUC #### [facility] [address] [address] [address] Ruperto Zapien #0.2 103/ulNormal0.0-0.7The [facility] CampusComment on above: Performed By: #### POCGLUC #### [facility] [address] [place] [address] Dr. Ruperto Bolañososinophils/100 WBC (Bld)1.1 %Normal0.9-7.0[facility] [facility] Comment on above:Performed By: #### POCGLUC #### [facility] [address] [place] [address] Dr. Ruperto Bolañosrythrocyte distribution width (RBC) [Ratio]13.1 %Lbkjum65.0-15.0 The [facility] CampusComment on above:Performed By: #### POCGLUC #### [facility] [address] [place] [address] Dr. Ruperto MonroeHematocrit (Bld) [Volume fraction]48.3 %Ovrluu14.0-54.0[facility] HospitalComment on above:Performed By: #### POCGLUC #### [facility] [address] [place] [address] Dr. Ruperto MonroeHemoglobin (Bld) [Mass/Vol]17.2 g/jJCvqtmj95.0-18.0[facility] HospitalComment on above:Performed By: #### POCGLUC #### [facility] [address] [place] [address] Dr. Ruperto Steen #0.11 10e3/ulCritically high0.00-0.03[facility] Comment on above:Performed By: #### POCGLUC #### [facility] [address] [place] [address] Dr. Ruperto Steen %0.6 %Critically high0.0-0.5The [facility] CampusComment on above:Performed By: #### POCGLUC #### [facility] [address] [place] [address] Dr. Ruperto Sullivan #3.1 103/ulNormal1.2-3.8The [facility] CampusComment on above:Performed By: #### POCGLUC #### [facility] [address] [place] [address] Dr. Ruperto Hensleyhocytes/100 WBC (Bld)17.8 %Critically low20.5-60.0The [facility] CampusComment on above:Performed By: #### POCGLUC #### [facility] [address] [place] [address] Dr. Ruperto Garcia DIFF REQNONormalThe [facility] CampusComment on above: Performed By: #### POCGLUC #### [facility] [address] [place] [address] Dr. Ruperto Olson (RBC) [Entitic mass]29.6 ftMdyzre80.9-34.0The [facility] CampusComment on above:Performed By: #### POCGLUC #### [facility] [address] [place] [address] Dr. Ruperto Olson (RBC) [Mass/Vol]35.6 g/dLCritically high29.9-35.2The [facility] CampusComment on above:Performed By: #### POCGLUC #### [facility] [address] [place] [address] Dr. Ruperto Olson (RBC) [Entitic vol]83.0 dQTcmwmu63.0-94.0The [facility] CampusComment on above:Performed By: #### POCGLUC #### [facility] [address] [place] [address] Dr. Ruperto Melton #1.1 103/ulCritically high0.3-0.8[facility] Comment on above:Performed By: #### POCGLUC #### [facility] [address] [place] [address] Dr. Ruperto Purdyocytes/100 WBC (Bld)6.3 %Normal1.7-12.0[facility] Comment on above:Performed By: #### POCGLUC #### [facility] [address] [address] [address] Ruperto Alcantara #13.0 103/ulCritically high1.4-6.5[facility] Comment on above:Performed By: #### POCGLUC #### [facility] [address] [place] [address] Dr. Ruperto Alcantarutrophils/100 WBC (Bld)73.7 %Ihclqh28.0-75.0The [facility] CampusComment on above:Performed By: #### POCGLUC #### [facility] [address] [place] [address] Dr. Ruperto Maciaslet mean volume (Bld) [Entitic vol]11.6 fLNormal9.5-13.5The [facility] CampusComment on above:Performed By: #### POCGLUC #### [facility] [address] [place] [address] Dr. Ruperto MonroePLT230 103/dbTaepjp023-578Axq [facility] CampusComment on above: Performed By: #### POCGLUC #### [facility] [address] [place] [address] Dr. Ruperto MonroeRBC5.82 106/ulNormal4.70-6.10The [facility] CampusComment on above:Performed By: #### POCGLUC #### [facility] [address] [place] [address] Dr. Ruperto MonroeWBC17.6 103/ulCritically high4.0-11.0The [facility] CampusComment on above:Performed By: #### POCGLUC #### [facility] [address] [place] [address] Dr. Hickey ChangER URINE PROFILEon 80-93-1546Srfegvlbk Ql (U)NegativeNormal NEGATIVEThe [facility] CampusComhawthorn center on above:Performed By: #### POCGLUC #### [facility] [address] [place] [address] Dr. Ruperto MonroeClarity (U)CLEARNormalCLEARThe [facility] CampusComment on above: Performed By: #### POCGLUC #### [facility] [address] [address] [address] Ruperto Elizondolor (U)LT. YELLOWNormalYELLOWOhiohealth Dublin Methodist HospitalComment on above:Performed By: #### POCGLUC #### [facility] [address] [address] [address] Ruperto Ngo micrscopic examination will be performed if indicated. NormalOhiohealth Dublin Methodist HospitalComment on above:Performed By: #### POCGLUC #### [facility] [address] [address] [address] Ruperto Jacksonose Ql (U)>1000AbnormalNEGATIVEOhiohealth Dublin Methodist HospitalComment on above:Performed By: #### POCGLUC #### [facility] [address] [place] [address] Dr. Ruperto MonroeHemoglobin Ql (U)SMALLAbnormalNEGSelect Medical [facility] Comment on above:Performed By: #### POCGLUC #### [facility] [address] [place] [address] Dr. Ruperto Grayones Ql (U)NegativeNormalNEGATIVEOhiohealth Dublin Methodist HospitalComment on above:Performed By: #### POCGLUC #### [facility] [address] [place] [address] Dr. Ruperto MonroeLEUKOCYTESNegativeNormalNEGSelect Medical [facility] Rehabilitation Hospital, Edwin ShawComment on above:Performed By: #### POCGLUC #### [facility] [address] [place] [address] Dr. Ruperto MonroeNitrite Ql (U)NegativeNormalNEGATIVEOhiohealth Dublin Methodist HospitalComment on above:Performed By: #### POCGLUC #### [facility] [address] [place] [address] Dr. Ruperto MonroepH (U)5.0 [pH]Normal5-9[facility] Methodist HospitalComment on above: Performed By: #### POCGLUC #### [facility] [address] [place] [address] Dr. Ruperto MonroeSPEC GRAVITY<=1.547Zdynvdnx3.005-<=1.025[facility] Comment on above:Performed By: #### POCGLUC #### [facility] [address] [address] [address] Ruperto Ruffin PROTEINNegativeNormalNEGATIVE/ TRACEThe [facility] Comment on above:Performed By: #### POCGLUC #### [facility] [address] [address] [address] Ruperto Smith MICRO INDINDICATEDNormalThe [facility] CampusComment on above: Performed By: #### POCGLUC #### [facility] [address] [address] [address] Ruperto Hollandbilinogen Qn (U)0.2 {Estella'U}/dLNormal0.2 - 1.0The [facility] CampusComment on above:Performed By: #### POCGLUC #### [facility] [address] [place] [address] Dr. Ruperto MonroeLIPASEon 94-52-5156Wdvnqt [Catalytic activity/Vol]416.0 U/L Critically high73.0-393.0The [facility] CampusComment on above:Performed By: #### CMREP #### [facility] [address] [address] [address] Ruperto Holman 14(COMP METB)on 23-93-9697Zzkggis [Mass/Vol]3.2 g/dL Critically low3.4-5.0The [facility] CampusComment on above:Performed By: #### CMREP #### [facility] [address] [place] [address] Dr. Ruperto MonroeAlbumin/Globulin [Mass ratio]0.7 {ratio}NormalThe [facility] CampusComment on above:Performed By: #### CMREP #### [facility] [address] [address] [address] Ruperto MuhammadP [Catalytic activity/Vol]106 U/JNkrlqs49-372Yjk [facility] CampusComment on above:Performed By: #### CMREP #### [facility] [address] [address] [address] Ruperto Bro gap [Moles/Vol]14.1 mmol/LNormalThe [facility] Comment on above:Performed By: #### CMREP #### [facility] [address] [address] [address] Ruperto MonroeBilirubin [Mass/Vol]0.5 mg/dLNormal0.2-1.0[facility] Comment on above:Performed By: #### CMREP #### [facility] [address] [place] [address] Dr. Ruperto MonroeCalcium [Mass/Vol]8.6 mg/dLNormal8.5-10.1[facility] Comment on above:Performed By: #### CMREP #### [facility] [address] [place] [address] Dr. Ruperto MonroeChloride [Moles/Vol]87 mmol/LCritically guq47-904CueOhiohealth Dublin Methodist HospitalComment on above:Performed By: #### CMREP #### [facility] [address] [place] [address] Dr. Ruperto MonroeCO2 [Moles/Vol]29.1 mmol/MOitkju67.0-32.0[facility] Comment on above:Performed By: #### CMREP #### [facility] [address] [place] [address] Dr. Ruperto MonroeCreatinine [Mass/Vol]0.62 mg/dLCritically low0.70-1.30[facility] HospitalComment on above:Performed By: #### CMREP #### [facility] [address] [place] [address] Dr. Ruperto BolañosGFR-AF MACANESE>60Normal>=60The [facility] CampusComment on above:Performed By: #### CMREP #### [facility] [address] [place] [address] Dr. Rupreto BolañosGFR-NON AF MACANESE>60Normal>=60The [facility] CampusComment on above:Performed By: #### CMREP #### [facility] [address] [place] [address] Dr. Ruperto MonroeGlobulin (S) [Mass/Vol]4.2 g/dLNormalThe [facility] CampusComment on above:Performed By: #### CMREP #### [facility] [address] [address] [address] Ruperto MonroeGlucose [Mass/Vol]346 mg/dLCritically rybn45-043Jzm [facility] CampusComhawthorn center on above:Performed By: #### CMREP #### [facility] [address] [address] [address] Ruperto MonroePotassium [Moles/Vol]3.5 mmol/LNormal3.5-5.1[facility] Comment on above:Performed By: #### CMREP #### [facility] [address] [address] [address] Ruperto MonroeProtein [Mass/Vol]7.4 g/dLNormal6.4-8.2[facility] Comment on above:Performed By: #### CMREP #### [facility] [address] [address] [address] Ruperto MonroeSodium [Moles/Vol]127 mmol/LCritically ikn231-615Apa [facility] CampusComment on above:Performed By: #### CMREP #### [facility] [address] [address] [address] Ruperto MonroeUrea nitrogen [Mass/Vol]9.0 mg/dLNormal7.0-18.0The [facility] CampusComment on above:Performed By: #### CMREP #### [facility] [address] [address] [address] Ruperto MonroeUrea nitrogen/Creatinine [Mass ratio]14.5 mg/mgNoTriHealthComment on above:Performed By: #### CMREP #### [facility] [address] [address] [address] Ruperto Del [place] MICROSCOPIC ONLYon 19-20-7942TYEYICUPDWYNHRhvedcvjYRFL SEEN [facility] HospitalComhawthorn center on above:Performed By: #### POCGLUC #### [facility] [address] [place] [address] Dr. Ruperto MonroeBacteria identified Cx Nom (U)NOT INDICATEDNormalThe [facility] CampusComment on above:Performed By: #### POCGLUC #### [facility] [address] [address] [address] Ruperto MonroeCASTNONPriti SEENNormalNONE SEENUniversity Hospitals Ahuja [facility] on above:Performed By: #### POCGLUC #### [facility] [address] [address] [address] Ruperto MonroeCrystals LM Nom (Urine sed)NONE SEENNormalNONE SEENOhiohealth Dublin Methodist HospitalComhawthorn center on above:Performed By: #### POCGLUC #### [facility] [address] [address] [address] Hickey ChangEpithelial cells LM Ql (Urine sed)RARENormalNONE SEEN /RAREOhiohealth Dublin Methodist HospitalComhawthorn center on above:Performed By: #### POCGLUC #### [facility] [address] [place] [address] Dr. Ruperto IsaacUSALOK SEENNormalNONE SEENUniversity Hospitals Ahuja [facility] on above:Performed By: #### POCGLUC #### [facility] [address] [address] [address] Ruperto MonroeCxjttEDS1-9Cbblke4-9QlwUniversity Hospitals Ahuja Medical Center on above:Performed By: #### POCGLUC #### [facility] [address] [address] [address] Ruperto MonroeWBCALOK SEENNormalNONE SEENUniversity Hospitals Ahuja [facility] Center on above: Performed By: #### POCGLUC #### [facility] [address] [address] [address] Ruperto Riveraccariana Screening.on 63-98-1915Kebx risk assessmentc) Not medically indicatedProvidence St. [facility] [address] DO Work Phone: Tobacco use status CPHSa) YesProvidence St. [facility] [place] 250 DO Work Phone: Tobacco Screening.YesProv[facility] [facility] DO Work Phone: Basophils Auto (Bld) [#/Vol]Ordered By: Tammy Monroy on 34-13-6597Dkhhrsdzg (Bld) [#/Vol]0.1 10*3/uL0.0-0.2FSelect Medical TriHealth Rehabilitation HospitalBasophils/100 WBC Auto (Bld)Ordered By: Tammy Monroy on 26-59-5008Aztyezkef/100 WBC (Bld)1.0 %.[facility] Creatinine and Glomerular filtration rate.predicted panel (S/P/Bld)Ordered By: Tammy Monroy on 53-26-5541Tgqhuqecgy [Mass/Vol]0.48 mg/dL0.64-1.27[facility] AndersonEosinophils Auto (Bld) [#/Vol]Ordered By: Tammy Monroy on 52-18-3271Ppqdwqsuiud (Bld) [#/Vol]0.4 10*3/uL0.0-0.45[facility] AndersonEosinophils/100 WBC Auto (Bld)Ordered By: Tammy Monroy on 63-35-0893Ltwyaannktw/100 WBC (Bld)3.2 %.[facility] Erythrocyte distribution width Auto (RBC) [Ratio]Ordered By: Tammy Monroy on 85-37-3228Xrmgnpbehst distribution width (RBC) [Ratio]14.1 %12.0-14.8[facility] AndersonEstimated glomerular filtration rate (GFR) non- AmericanOrdered By: Tammy Monroy on 26-76-5886YHU/1.73 sq M.predicted among non-blacks MDRD (S/P/Bld) [Vol rate/Area]> 60 mL/MinOur Lady Of Mercy Hospital - AndersonGlucose Glucometer (BldC) [Mass/Vol]Ordered By: Phillip Roth on 81-60-0095Miskhpl [Mass/Vol]154 mg/dLOur Lady Of Mercy Hospital - AndersonComment on above:Random Glucose Reference Range is dependent on time and content of last meal. Glucose of more than 200 mg/dL in a nonstressed, ambulatory subject supports the diagnosis of Diabetes Mellitus.Hematocrit Auto (Bld) [Volume fraction]Ordered By: Tammy Monroy on 19-36-8042Krkdvvwuoq (Bld) [Volume fraction]46.8 %38.8-50.0[facility] AndersonHemoglobin [Mass/volume] in BloodOrdered By: Tammy Monroy on 32-38-6789Wboetqpacd (Bld) [Mass/Vol]15.8 g/dL13.0-17.0[facility] AndersonLeukocytes [#/volume] corrected for nucleated erythrocytes in Blood by Automated coun Ordered By: Tammy Monroy on 58-14-3395AJB corrected for nucl RBC Auto (Bld) [#/Vol]11.4 10*3/uL4.1-10.5FSelect Medical TriHealth Rehabilitation HospitalLymphocytes Auto (Bld) [#/Vol]Ordered By: Tammy Monroy on 63-56-5270Wwhjbybluhb (Bld) [#/Vol] 4.3 10*3/uL1.00-4.8[facility] AndersonLymphocytes/100 WBC Auto (Bld)Ordered By: Tammy Monroy on 81-98-7910Zwwxdihqrpk/100 WBC (Bld)37.8 %. [facility] Auto (RBC) [Entitic mass]Ordered By: Tammy Monroy on 71-37-8185SHS (RBC) [Entitic mass]29.3 pg27.5-35.2FSelect Medical TriHealth Rehabilitation HospitalMCHC Auto (RBC) [Mass/Vol]Ordered By: Tammy Monroy on 99-58-4283LWKQ (RBC) [Mass/Vol]33.7 g/dL32.5-35.6FSelect Medical TriHealth Rehabilitation HospitalMCV Auto (RBC) [Entitic vol]Ordered By: Tammy Monroy on 37-20-8369NDW (RBC) [Entitic vol]86.9 fL83.5-101[facility] AndersonMonocytes Auto (Bld) [#/Vol]Ordered By: Tammy Monroy on 81-46-0111Jgembnwwp (Bld) [#/Vol]0.8 10*3/uL0.0-0.8[facility] AndersonMonocytes/100 WBC Auto (Bld)Ordered By: Tammy Monroy on 82-58-1972Orufpbcgs/100 WBC (Bld)6.6 %. [facility] AndersonNeutrophils Auto (Bld) [#/Vol]Ordered By: Tammy Monroy on 71-62-2996Osrnfrjetzu (Bld) [#/Vol]5.9 10*3/uL1.8-7.7FSelect Medical TriHealth Rehabilitation HospitalNeutrophils/100 WBC Auto (Bld)Ordered By: Tammy Monroy on 75-17-5699Olrwrwylcfq/100 WBC (Bld)51.4 %.[facility] No Panel InformationOrdered By: Phillip Roth on 52-71-1027Wcrqdws Glucose CommentGlu2: cleaned meterOur Lady Of Mercy Hospital - AndersonNo Panel Information Ordered By: Tammy Monroy on 85-29-9951Vwgdaeodk GFR ()> 60 mL/MinOur Lady Of Mercy Hospital - AndersonComment on above:GFR estimated reference range: According to KDOQI guidelines, <60 ml/min/1.73m2 is sufficient todiagnose a patient with chronic kidney disease.Pharmacy Creatinine Clearance (Ybrt572.36 [facility] AndersonNucleated erythrocytes [Presence] in Blood by Automated countOrdered By: Tammy Monroy on 21-42-1876Bsuuwmrat RBC Auto Ql (Bld)0.3 /100{WBC}0-0.5FSelect Medical TriHealth Rehabilitation HospitalPlatelet mean volume Auto (Bld) [Entitic vol]Ordered By: Tammy Monroy on 41-07-5892Tffjkwgg mean volume (Bld) [Entitic vol]9.6 fL6.6-10.1FSelect Medical TriHealth Rehabilitation Hospital Platelets Auto (Bld) [#/Vol]Ordered By: Tammy Monroy on 00-89-0493Mpatvgwly (Bld) [#/Vol]295 10*3/yE009-296DfhmiwlahOur Lady Of Mercy Hospital - AndersonRBC Auto (Bld) [#/Vol]Ordered By: Tammy Monroy on 74-03-2704SKR (Bld) [#/Vol]5.39 10*6/uL 3.90-5.60[facility] Centererum or plasma anion gap determinationOrdered By: Tammy Monroy on 70-30-2379Spiyo gap [Moles/Vol]12.7 mmol/L6.0-15.0[facility] Centererum or plasma calcium measurement (mass/volume)Ordered By: Tammy Monroy on 68-91-4433Vzyjjlh [Mass/Vol]9.0 mg/dL8.2-10.2FTrinity Health System East Campuserum or plasma chloride measurement (moles/volume)Ordered By: Tammy Monroy on 02-26-2022 Chloride [Moles/Vol]99 mmol/B38-690DxvivqfzjCommunity Regional Medical Centererum or plasma glucose measurement (mass/volume)Ordered By: Tammy Monroy on 06-83-9439Jneayrp [Mass/Vol]163 mg/fL92-912TutupvrylOur Lady Of [facility] Comment on above:ADA recommended reference rangeRandom Glucose Reference Range is dependent on time and content of last meal. Glucose of more than 200 mg/dL in a nonstressed, ambulatory subject supports the diagnosisof Diabetes Mellitus. Serum or plasma potassium measurement (moles/volume)Ordered By: Tammy Monroy on 34-98-6196Kvcgwxsut [Moles/Vol]4.1 mmol/L3.5-5.1FTrinity Health System East Campuserum or plasma sodium measurement (moles/volume)Ordered By: Tammy Monroy on 15-34-1958Lgzper [Moles/Vol]133 mmol/U581-322EgzqluhihCommunity Regional Medical Centererum or plasma total carbon dioxide measurement (moles/volume) Ordered By: Tammy Monroy on 65-88-1919YU8 [Moles/Vol]25.4 mmol/L22.0-30.0 [facility] Centererum or plasma urea nitrogen measurement (mass/volume)Ordered By: Tammy Monroy on 59-49-0136Uwqz nitrogen [Mass/Vol]16 mg/dL9-23[facility] AndersonWBC Auto (Bld) [#/Vol]Ordered By: Tammy Monroy on 49-29-2239VHW (Bld) [#/Vol]11.4 10*3/uL4.1-10.5FSelect Medical TriHealth Rehabilitation HospitalCARDIAC KIMBERLY 3-6on 91-89-7150IN [Catalytic activity/Vol] 100 U/TEucwac57-235LjnOhiohealth Dublin Methodist HospitalComment on above:Performed By: #### CMREP #### [facility] [address] [place] [address] Dr. Ruperto Lamb.MB [Mass/Vol]3.46 ng/mLNormal<=3.60[facility] Comment on above:Performed By: #### CMREP #### [facility] [address] [place] [address] Dr. Ruperto Santacruz948.9 pg/mLCritically high4.0-76.1[facility] Comment on above:Result Comment: CUT-OFF POINTS HAVE BEEN ESTABLISHED BASED ON THE FOURTH UNIVERSAL DEFINITIONS OF MYOCARDIAL INFARCTION. THE UPPER REFERENCE LIMIT (URL) OF TROPONIN, DEFINED THE 99TH PERCENTILE OF cTnI DISTRIBUTION IN A REFERENCE POPULATION, HAS BEEN CONFIRMED THE DECISION THRESHOLD FOR DC DIAGNOSIS.Performed By: #### CMREP #### [facility] [address] [place] [address] Dr. Ruperto Lamb [Catalytic activity/Vol]97 U/JYpnaqq31-879UpsOhiohealth Dublin Methodist HospitalComment on above:Performed By: #### POCGLUC #### [facility] [address] [place] [address] Dr. Ruperto Lamb.MB [Mass/Vol]3.40 ng/mLNormal<=3.60[facility] Comment on above:Performed By: #### POCGLUC #### [facility] [address] [place] [address] Dr. Ruperto Santacruz335.7 pg/mLCritically high4.0-76.1[facility] Comment on above:Result Comment: CUT-OFF POINTS HAVE BEEN ESTABLISHED BASED ON THE FOURTH UNIVERSAL DEFINITIONS OF MYOCARDIAL INFARCTION. THE UPPER REFERENCE LIMIT (URL) OF TROPONIN, DEFINED THE 99TH PERCENTILE OF cTnI DISTRIBUTION IN A REFERENCE POPULATION, HAS BEEN CONFIRMED THE DECISION THRESHOLD FOR DC DIAGNOSIS.Performed By: #### POCGLUC #### [facility] [address] [place] [address] Dr. Ruperto Posadas KIMBERLY ADMITon 19-25-1991AL [Catalytic activity/Vol]117 U/L Ycblpp67-755Hvo [facility] CampusComment on above:Performed By: #### CMADM, BMP #### [facility] [address] [address] [address] Ruperto Lamb.MB [Mass/Vol]3.19 ng/mLNormal<=3.60[facility] Comment on above:Performed By: #### KASANDRA, BMP #### [facility] [address] [address] [address] Ruperto DrakeTROP274.8 pg/mLCritically high4.0-76.1[facility] Comment on above:Result Comment: CUT-OFF POINTS HAVE BEEN ESTABLISHED BASED ON THE FOURTH UNIVERSAL DEFINITIONS OF MYOCARDIAL INFARCTION. THE UPPER REFERENCE LIMIT (URL) OF TROPONIN, DEFINED THE 99TH PERCENTILE OF cTnI DISTRIBUTION IN A REFERENCE POPULATION, HAS BEEN CONFIRMED THE DECISION THRESHOLD FOR DC DIAGNOSIS.Performed By: #### CMADM, BMP #### [facility] [address] [address] [address] Ruperto CaseO43 ng/dWZxocmv90-78Pxw [facility] CampusComment on above: Performed By: #### CMADM, BMP #### [facility] [address] [place] [address] Dr. Ruperto Clarke AUTO DIFFon 28-63-5293CLDH #0.1 103/ulNormal0.0-0.1The [facility] CampusComment on above:Performed By: #### CMREP #### [facility] [address] [place] [address] Dr. Ruperto MonroeBasophils/100 WBC (Bld)0.5 %Normal0.2-2.0[facility] Comment on above:Performed By: #### CMREP #### [facility] [address] [place] [address] Dr. Ruperto Zapien #0.0 103/ulNormal0.0-0.7The [facility] CampusComment on above: Performed By: #### CMREP #### [facility] [address] [place] [address] Dr. Ruperto Bolañososinophils/100 WBC (Bld)0.1 %Critically low0.9-7.0The [facility] CampusComment on above:Performed By: #### CMREP #### [facility] [address] [place] [address] Dr. Ruperto Bolañosrythrocyte distribution width (RBC) [Ratio]13.6 %Cstspa52.0-15.0 The [facility] CampusComment on above:Performed By: #### CMREP #### [facility] [address] [place] [address] Dr. Ruperto MonroeHematocrit (Bld) [Volume fraction]47.6 %Bviout93.0-54.0The [facility] CampusComment on above:Performed By: #### CMREP #### [facility] [address] [place] [address] Dr. Ruperto MonroeHemoglobin (Bld) [Mass/Vol]16.2 g/kLEdyosg60.0-18.0The [facility] CampusComment on above:Performed By: #### CMREP #### [facility] [address] [place] [address] Dr. Ruperto Steen #0.16 10e3/ulCritically high0.00-0.03[facility] Comment on above:Performed By: #### CMREP #### [facility] [address] [place] [address] Dr. Ruperto Steen %0.8 %Critically high0.0-0.5The [facility] CampusComment on above:Performed By: #### CMREP #### [facility] [address] [place] [address] Dr. Ruperto HensleyH #1.9 103/ulNormal1.2-3.8The [facility] CampusComment on above:Performed By: #### CMREP #### [facility] [address] [place] [address] Dr. Ruperto Zeemphocytes/100 WBC (Bld)10.0 %Critically low20.5-60.0The [facility] CampusComment on above:Performed By: #### CMREP #### [facility] [address] [place] [address] Dr. Ruperto Garcia DIFF REQNONormalThe [facility] CampusComment on above: Performed By: #### CMREP #### [facility] [address] [place] [address] Dr. Ruperto Olson (RBC) [Entitic mass]29.6 skMbfliz74.9-34.0The [facility] CampusComment on above:Performed By: #### CMREP #### [facility] [address] [place] [address] Dr. Ruperto Olson (RBC) [Mass/Vol]34.0 g/vLCahdph05.9-35.2The [facility] CampusComment on above:Performed By: #### CMREP #### [facility] [address] [place] [address] Dr. Ruperto Olson (RBC) [Entitic vol]86.9 sDCbbvty94.0-94.0The [facility] CampusComment on above:Performed By: #### CMREP #### [facility] [address] [place] [address] Dr. Ruperto Melton #0.7 103/ulNormal0.3-0.8The [facility] CampusComment on above:Performed By: #### CMREP #### [facility] [address] [place] [address] Dr. Ruperto Purdyocytes/100 WBC (Bld)3.6 %Normal1.7-12.0[facility] Comment on above:Performed By: #### CMREP #### [facility] [address] [place] [address] Dr. Ruperto Alcantara #16.1 103/ulCritically high1.4-6.5[facility] Comment on above:Performed By: #### CMREP #### [facility] [address] [place] [address] Dr. Yilan ChangNeutrophils/100 WBC (Bld)85.0 %Critically high43.0-75.0The [facility] CampusComment on above:Performed By: #### CMREP #### [facility] [address] [place] [address] Dr. Ruperto Maciaslet mean volume (Bld) [Entitic vol]11.1 fLNormal9.5-13.5The [facility] CampusComment on above:Performed By: #### CMREP #### [facility] [address] [place] [address] Dr. Ruperto MonroePLT311 103/luYyltwq246-346Evd [facility] CampusComment on above: Performed By: #### CMREP #### [facility] [address] [place] [address] Dr. Ruperto MonroeRBC5.48 106/ulNormal4.70-6.10The [facility] CampusComment on above:Performed By: #### CMREP #### [facility] [address] [place] [address] Dr. Ruperto MonroeWBC19.0 103/ulCritically high4.0-11.0The [facility] CampusComment on above:Performed By: #### CMREP #### [facility] [address] [place] [address] Dr. Ruperto MonroeCovid-19 PCR (CVDTB)on 85-69-8080ZDJA-CoV-2 (COVID-19) RNA ZULMA+probe Ql (Unsp spec)Not detectedNormalNOT DETECTEDThe [facility] Comment on above:Result Comment: When diagnostic testing is negative, the possibility of a false negative should be considered in the context of a patient's recent exposures and the presence of clinical signs and symptoms consistent with SARS-CoV-2. This test is not yet approved or cleared by the [place] FDA. When there are no FDA-approved or cleared tests available, and other criteria are met, FDA can make tests available under an emergency access mechanism called an Emergency Use Authorization (EUA). The EUA for this test is supported by the [place] of Health and Human Service's declaration that circumstances exist to justify the emergency use of in vitro diagnostics for the detection and/or diagnosis of the virus that causes COVID-19. This EUA will remain in effect for the duration of the COVID-19 declaration justifying emergency of IVDs, unless it is terminated or revoked by the FDA (after which the test may no longer be used).Performed By: #### CMREP #### [facility] [address] [place] [address] Dr. Ruperto MonroeGlucrufino mean value [Mass/volume] in Blood Estimated from glycated hemoglobinOrdered By: Tammy Monroy on 08-28-4537Jcfhhdf glucose Estimated from glycated hemoglobin (Bld) [Mass/Vol]235 mg/dLOur Lady Of Mercy Hospital - AndersonHemoglobin A1c percentageOrdered By: Tammy Monroy on 35-37-2612LaN0p (Bld) [Mass fraction]9.8 %4.3-5.6FSelect Medical TriHealth Rehabilitation HospitalComment on above:Increased risk for diabetes: 5.7 - 6.4diabetes: >6.4glycemic control for adults with diabetes: <7.0Laboratory - Chemistry and Chemistry - challenge Ordered By: Tammy Monroy on 25-81-3990Lkhkcvgfq [Mass/Vol]2.2 mg/dL1.6-2.6 [facility] AndersonPOINT OF CARE GLUCOSEon 47-36-5789Ljxrdbh [Mass/Vol]244 mg/dLCritically lpmc98-363ZbsOhiohealth Dublin Methodist HospitalComment on above: Performed By: #### POCGLUC #### [facility] [address] [place] [address] Dr. Ruperto MonroeGlucose [Mass/Vol]440 mg/dLCritically cylc73-839LymOhiohealth Dublin Methodist HospitalComment on above:Performed By: #### POCGLUC #### [facility] [address] [place] [address] Dr. Ruperto MonroePOCGLUC>600Critically pwmh71-945FfcOhiohealth Dublin Methodist HospitalComment on above:Result Comment: Result Not ConfirmedPerformed By: #### POCGLUC #### [facility] [address] [place] [address] Dr. Ruperto MonroePROF CHEM 8 (BAS METB)on 05-75-6484Aqbdk gap [Moles/Vol]12.0 mmol/LNormalThe [facility] CampusComment on above:Performed By: #### CMADM, BMP #### [facility] [address] [place] [address] Dr. Ruperto MonroeCalcium [Mass/Vol]9.1 mg/dLNormal8.5-10.1[facility] Comment on above:Performed By: #### CMADM, BMP #### [facility] [address] [place] [address] Dr. Ruperto MonroeChloride [Moles/Vol]95 mmol/LCritically rco86-167AfuOhiohealth Dublin Methodist HospitalComment on above:Performed By: #### CMADM, BMP #### [facility] [address] [place] [address] Dr. Ruperto MonroeCO2 [Moles/Vol]25.8 mmol/FTljysa47.0-32.0[facility] Comment on above:Performed By: #### CMADM, BMP #### [facility] [address] [place] [address] Dr. Ruperto MonroeCreatinine [Mass/Vol]1.09 mg/dLNormal0.70-1.30The [facility] CampusComment on above:Performed By: #### CMADM, BMP #### [facility] [address] [place] [address] Dr. Ruperto BolañosGFR-AF MACANESE>60Normal>=60The [facility] CampusComment on above:Performed By: #### CMADM, BMP #### [facility] [address] [place] [address] Dr. Ruperto BolañosGFR-NON AF MACANESE>60Normal>=60[facility] HospitalComment on above:Performed By: #### CMADM, BMP #### [facility] [address] [place] [address] Dr. Ruperto MonroeGlucose [Mass/Vol]618 mg/dLCritically aunk76-152Ckm [facility] CampusComment on above:Result Comment: checked by glucometer (H)Performed By: #### CMADM, BMP #### [facility] [address] [address] [address] Ruperto MonroePotassium [Moles/Vol]4.8 mmol/LNormal3.5-5.1[facility] Comment on above:Result Comment: grossly lipemic samplePerformed By: #### CMADM, BMP #### [facility] [address] [address] [address] Ruperto MonroeSodium [Moles/Vol]128 mmol/LCritically kmc106-586Ygn [facility] CampusComment on above:Performed By: #### CMADM, BMP #### [facility] [address] [place] [address] Dr. Ruperto MonroeUrea nitrogen [Mass/Vol]19.0 mg/dLCritically high7.0-18.0The [facility] CampusComment on above:Performed By: #### CMADM, BMP #### [facility] [address] [place] [address] Dr. Ruperto Newman nitrogen/Creatinine [Mass ratio]17.4 mg/mgNoTriHealthComment on above:Performed By: #### CMADM, BMP #### [facility] [address] [place] [address] Dr. Ruperto Gibson 02-33-6630HCR Coag (PPP) [Relative time]{INR}NormalOhiohealth Dublin Methodist HospitalComment on above:Performed By: #### CMREP #### [facility] [address] [place] [address] Dr. Ruperto Chao GUIDELINESSEE BELOWNoTriHealthComment on above:Result Comment: DESIRED INR: 2.0 - 3.0 CONDITIONS NOT LISTED BELOW 2.5 - 3.5 FOR PROSTHETIC HEART VALVE REPLACEMENT 2.5 - 3.5 RECURRENT THROMBOSIS Performed By: #### CMREP #### [facility] [address] [place] [address] Dr. Ruperto MonroePT Coag (PPP) [Time]10.0 sNormal9.0-11.6[facility] Comment on above:Performed By: #### CMREP #### [facility] [address] [address] [address] Ruperto Pressley 34-47-0361eGOP Coag (Bld) [Time]27.3 iJutbba51.3-36.2The [facility] CampusComment on above:Performed By: #### CMREP #### [facility] [address] [address] [address] Ruperto Wayne HEPARIN MONITORon 11-39-1331rOPU Coag (Bld) [Time]28.5 s Critically low39.5-54.2The [facility] CampusComment on above:Performed By: #### PTTHEP #### [facility] [address] [address] [address] Ruperto Garciacardiac [Mass/volume] in Serum or Plasma by High sensitivity methodOrdered By: Tammy Monroy on 45-96-4399Ofywmfxw I.cardiac High sensitivity method [Mass/Vol]428 pg/mL0-20[facility] Comment on above:Critical valueresult calledat 2012 on 02/25/22XR CHEST 1 Von 37-56-9904JK CHEST 1 VCXR HISTORY: Shortness of breath COMPARISON: 07/21/2020 TECHNIQUE: 1 view chest submitted for review. FINDINGS: There is a neurostimulator wire is seen overlying the mid thoracic spine. The lungs are adequately expanded without evidence of acute infiltrate or effusion. The cardiac silhouette measures within normal. Pulmonary vascularity is unremarkable. Osseous structures are within normal limits for age. IMPRESSION: No plain film evidence for acute cardiopulmonary disease. Electronically authenticated by: JAMEE HARDIN Date: 2022-02-25 00:23[facility] CenterPre-Certification Formon 70-46-2835Mwm-Certification Form [id number]#1.00CD:127NoLouis Stokes [facility] VA Medical CenterFormson [id number]#1.00CD:127 [facility] SystemPhysician Referralon 08-55-2451Hrfjujzdr [id number]#1.00CD:127NormalTrumbull Regional Medical CenterAmbulatory Visit Summaryon 75-13-4033Reqzuuvqng Visit Summary ZEESHAN LLANOS :1975 Visit Date:01/22/2022 Ambulatory Visit Instructions Your Diagnosis BPH with urinary obstruction Prostatitis Feeling of incomplete bladder emptying Other obstructive and reflux uropathy Your Care Team Attending Physician - Tien HURTADO MD Primary Care Physician - CRYSTAL CARMONA MD Referring Physician - CRYSTAL CARMONA MD This Is Your Medications List doxycycline (doxycycline hyclate 100 mg Cap) Contact prescribing physician if questions or concerns acetaminophen-hydrocodone (Vicodin) albuterol amitriptyline (amitriptyline 50 mg Tab) aspirin (aspirin 81 mg Chew Tab) atorvastatin (atorvastatin 10 mg Tab) budesonide/formoterol/glycopyrrolate (Breztri Aerosphere inhalation aerosol) carisoprodol (carisoprodol 350 mg Tab) dapagliflozin (Farxiga 10 mg oral tablet) dexlansoprazole (Dexilant 60 mg oral delayed release capsule) dulaglutide (Trulicity Pen) finasteride (finasteride 5 mg Tab) hydrochlorothiazide (hydrochlorothiazide 25 mg Tab) lisinopril (lisinopril 2.5 mg Tab) meloxicam (meloxicam 15 mg oral tablet) metformin metoprolol pregabalin (pregabalin 150 mg Cap) tamsulosin (Flomax 0.4 mg Cap) Procedures Performed Back, Hernia. Discharge Vitals Heart Rate (Peripheral) 74 Blood Pressure 104/76 Height 182 cm Height 72 in Weight 96 kg Weight 211.2 lb BMI 28.98 Medications What How Much When Instructions New doxycycline (doxycycline hyclate 100 mg Cap) 1 Capsules By Mouth 2 times a day Duration: 21 Days Pickup at [id number] Unchanged acetaminophen-hydrocodone (Vicodin) By Mouth Every 6 hours Contact prescribing physician if questions or concerns Unchanged albuterol Contact prescribing physician if questions or concerns Unchanged amitriptyline (amitriptyline 50 mg Tab) By Mouth Once a day (at bedtime) Contact prescribing physician if questions or concerns Unchanged aspirin (aspirin 81 mg Chew Tab) Chewed Every day Contact prescribing physician if questions or concerns Unchanged atorvastatin (atorvastatin 10 mg Tab) By Mouth Every day Contact prescribing physician ifquestions or concerns Unchanged budesonide/ formoterol/ glycopyrrolate (Breztri Aerosphere inhalation aerosol) Inhalation2 times a day Contact prescribing physician if questions or concerns Unchanged carisoprodol (carisoprodol 350 mg Tab) By Mouth 4 times a day Contact prescribing physician if questions or concerns Unchanged dapagliflozin (Farxiga 10 mg oral tablet) By Mouth Every day Contact prescribing physician if questions or concerns Unchanged dexlansoprazole (Dexilant 60 mg oral delayed release capsule) 1 Capsules By Mouth Every day Contact prescribing physician if questions or concerns Unchanged dulaglutide (Trulicity Pen) Subcutaneous Every week Contact prescribing physician if questions or concerns Unchanged finasteride (finasteride 5 mg Tab) By Mouth Every day Contact prescribing physician if questions or concerns Unchanged hydrochlorothiazide (hydrochlorothiazide 25 mg Tab) By Mouth Every day Contact prescribing physician if questions or concerns Unchanged lisinopril (lisinopril 2.5 mg Tab) By Mouth Every day Contact prescribing physician if questions or concerns Unchanged meloxicam (meloxicam 15 mg oral tablet) By Mouth Every day Contact prescribing physician if questions or concerns Unchanged metformin By Mouth Contact prescribing physician if questions or concerns Unchanged metoprolol Contact prescribing physician if questions or concerns Unchanged pregabalin (pregabalin 150 mg Cap) By Mouth 2 times a day Contact prescribing physician if questions or concerns Unchanged tamsulosin (Flomax 0.4 mg Cap) By Mouth Every day Contact prescribing physician if questions or concerns Pharmacy Information [id number]: [address], [place] [phone] Allergies Keflex (Unknown) Percocet (Unknown) Education Materials Prostate-Specific Antigen Test Why am I having this test? The prostate-specific antigen (PSA) test is a screening test for prostate cancer. It can identify early signs of prostate cancer, which may allow for more effective treatment. Your health care provider may recommend that you have a PSA test starting at age 40 or that you have one earlier or later, depending on your risk factors for prostate cancer. You may also have a PSA test: ? To monitor treatment of prostate cancer. ? To check whether prostate cancer has returned after treatment. ? If you have signs of other conditions that can affect PSA levels, such as: ? An enlarged prostate that is not caused by cancer (benign prostatic hyperplasia, BPH). This condition is very common in older men. ? A prostate infection. What is being tested? This test measures the amount of PSA in your blood. PSA is a protein that is made in the prostate. The prostate naturally produces more PSA as you age, but very high levels (more content not included)...[facility] Patient Educationon [phone] EducationOncology Prostate-Specific Antigen Test Why am I having this test? The prostate-specific antigen (PSA) test is a screening test for prostate cancer. It can identify early signs of prostate cancer, which may allow for more effective treatment. Your health care provider may recommend that you have a PSA test starting at age 40 or that you have one earlier or later, depending on your risk factors for prostate cancer. You may also have a PSA test: ? To monitor treatment of prostate cancer. ? To check whether prostate cancer has returned after treatment. ? If you have signs of other conditions that can affect PSA levels, such as: ? An enlarged prostate that is not caused by cancer (benign prostatic hyperplasia, BPH). This condition is very common in older men. ? A prostate infection. What is being tested? This test measures the amount of PSA in your blood. PSA is a protein that is made in the prostate. The prostate naturally produces more PSA as you age, but very high levels may be a sign of a medicalcondition. What kind of sample is taken? A blood sample is required for this test. It is usually collected by inserting a needle into a blood vessel or by sticking a finger with a small needle. Blood for this test should be drawn before having an exam of the prostate. How do I prepare for this test? Do not ejaculate starting 24 hours before your test, or as long as told by your health care provider. Tell a health care provider about: ? Any allergies you have. ? All medicines you are taking, including vitamins, herbs, eye drops, creams, and rsgw-nrv-zhfjmdb medicines. This also includes: ? Medicines to assist with hair growth, such as finasteride. ? Any recent exposure to a medicine called diethylstilbestrol. ? Any blood disorders you have. ? Any recent procedures you have had, especially any procedures involving the prostate or rectum. ? Any medical conditions you have. ? Any recent urinary tract infections (UTIs) you have had. How are the results reported? Your test results will be reported as a value that indicates how much PSA is in your blood. This will be given as nanograms of PSA per milliliter of blood (ng/mL). Your health care provider will compare your results to normal ranges that were established after testing a large group of people (reference ranges). Reference ranges may vary among labs and hospitals. PSA levels vary from person to person and generally increase with age. Because of this variation, there is no single PSA value that is considered normal for everyone. Instead, PSA reference ranges are used to describe whether your PSA levels are considered low or high (elevated). Common reference ranges are: ? Low: 0?2.5 ng/mL. ? Slightly to moderately elevated: 2.6?10.0 ng/mL. ? Moderately elevated: 10.0?19.9 ng/mL. ? Significantly elevated: 20 ng/mL or greater. Sometimes, the test results may report that a condition is present when it is not present (false-positive result). What do the results mean? A test result that is higher than 4 ng/mL may mean that you are at an increased risk for prostate cancer. However, a PSA test by itself is not enough to diagnose prostate cancer. High PSA levels may also be caused by the natural aging process, prostate infection, or BPH. PSA screening cannot tell you if your PSA is high due to cancer or a different cause. A prostate biopsy is the only way to diagnose prostate cancer. A risk of having the PSA test is diagnosing and treating prostate cancer that would never have caused any symptoms or problems (overdiagnosis and overtreatment). Talk with your health care provider about what your results mean. Questions to ask your health care provider Ask your health care provider, or the department that is doing the test: ? When will my results be ready? ? How will I get my results? ? What are my treatment options? ? What other tests do I need? ? What are my next steps? Summary ? The prostate-specific antigen (PSA) test is a screening test for prostate cancer. ? Your health care provider may recommend that you have a PSA test starting at age 40 or that you have one earlier or later, depending on your risk factors for prostate cancer. ? A test result that is higher than 4 ng/mL may mean that you are at an increased risk for prostatecancer. However, elevated levels can be caused by a number of conditions other than prostate cancer. ? Talk with your health care provider about what your results mean. This information is not intended to replace advice given to you by your health care provider. Make sure you discuss any questions you have with your health care provider. Document Released: 04/13/2005 Document Revised: 02/21/2018 Document Reviewed: 12/16/2017 [employer] Patient Education ? 2019 [employer] Office/Clinic Noteon [id number] Office/Clinic NoteChief Complaint New patient HPI Staff New Patient Zeeshan is a 46 y/o male here for BPH. No family hx of prostate cancer, No hx of kidneystones. Pt is on Flomax, and Finasteride. Dysuria: _pain yes Incomplete bladder emptying: _yes Hematuria: _denies Frequency: _denies Urgency: _denies Nocturia: _2x Stream: _straining, hesitancy. Leaking: _denies Post void dripping: _denies Wearing pads/ Depends: _denies Urge incontinence: _denies Stress incontinence: _denies Incontinence without Sensory Awareness: _denies Abdominal pain: _denies Flank pain: _denies Sexual complaints: _ History of Present Illness reviewed medical history, no associated fever, chills, pain or blood. Review of Systems ROS - Provider Constitutional: denies weight loss, denies hot flashes. Eyes: denies eye problems. Gastrointestinal: denies nausea, denies vomiting. Cardiovascular: denies chest pain or angina. Integumentary: no dryness Musculoskeletal: denies musculoskeletal symptoms. ENMT: denies otolaryngeal symptoms. Respiratory: no shortness of breath. Heme/Lymph: denies easy bleeding tendency, denies easy bruising tendency. Psychiatric: no confusion, no anxiety. Genitourinary: denies dysuria, denies hematuria, denies discharge, denies urinary frequency, deniesurinary hesitancy, moderate nocturia, denies incontinence, denies genital sores, denies decreased libido, and denies erectile dysfunction. Physical Exam Vitals & Measurements HR: 74(Peripheral) BP: 104/76 HT: 72 in HT: 182 cm WT: 96 kg WT: 211.2 lb BMI: 28.98 General Appearance: alert, no distress, well nourished, well developed male. Head: normocephalic . Eyes: normal orbit and globe. ENMT: normal examination of external ears. Chest: Lungs CTA, respirations non labored. Cardiovascular: regular rate and rhythm. Abdomen: soft, non distended, no tenderness, no mass or organomegaly, no hernia. Genitourinary: normal scrotum, normal testes, normal urethra, normal epididymis, normal vas deferens/spermatic cord. Flank Pain: none. Bladder: nonpalpable. Penis: normal shaft, normal glans. Prostate: normal prostate, estimated weight 25 gms, no hard nodule observed. Lymph Nodes: unremarkable palpation of the cervical area. Skin: warm, dry, no bruising. Psychiatric: cooperative, affect appropriate for age, normal judgement, euthymic mood. Assessment/Plan 1. BPH with urinary obstruction (N40.1: Benign prostatic hyperplasia with lower urinary tract symptoms) Patient referred here by his PCP Dr Carmona. Patient currently taking Flomax 0.4mg and Finasteride 5mg Qd therapy Patient feels medication is not improving symptoms. weak urinary stream, straining and getting up 2x per night. Will schedule patient for Cystoscopy and urodynamics. Risk's of procedure discussed with patient including bleeding and infection. 2. Prostatitis (N41.9: Inflammatory disease of prostate, unspecified) patient c/o painful urination ongoing for a long time. Denies hematuria Will start patient on antibiotic regimen. Doxycycline 100mg BID x 3 weeks. Patient is in agreement with this plan. 3. Feeling of incomplete bladder emptying (R39.14: Feeling of incomplete bladder emptying) Other obstructive and reflux uropathy (N13.8: Other obstructive and reflux uropathy) Follow-up No qualifying data available Patient Education Prostate-Specific Antigen Test Sandy Bee, personally scribed for Dr. Hurtado on 01/22/2022 15:35:08. Electronically signedby neeru Valenzuela on 01/22/2022 15:35:08. Documentation recorded by the scribe, Sandy Valenzuela, accurately reflects the services(s) I performed and decisions made by me. Authenticated by Dr. Hurtado on 01/22/2022 15:38:04. Problem List/Past Medical History Ongoing No qualifying data Historical No qualifying data Procedure/Surgical History Back, Hernia. Medications albuterol amitriptyline 50 mg Tab, Oral, Once a day (at bedtime) aspirin 81 mg Chew Tab, Chewed, Daily atorvastatin 10 mg Tab, Oral, Daily Breztri Aerosphere inhalation aerosol, Inhalation, BID carisoprodol 350 mg Tab, Oral, QID Dexilant 60 mg oral delayed release capsule, 60 mg= 1 cap(s), Oral, Daily doxycycline hyclate 100 mg Cap, 100 mg= 1 cap(s), Oral, BID Farxiga 10 mg oral tablet, Oral, Daily finasteride 5 mg Tab, Oral, Daily Flomax 0.4 mg Cap, Oral, Daily hydrochlorothiazide 25 mg Tab, Oral, Daily lisinopril 2.5 mg Tab, Oral, Daily meloxicam 15 mg oral tablet, Oral, Daily metformin, Oral metoprolol pregabalin 150 mg Cap, Oral, BID Trulicity Pen, SubCutaneous, qWeek Vicodin, Oral, q6hr Allergies Keflex (Unknown) Percocet (Unknown) Social History Alcohol Current, Beer, Liquor, 1-2 times per week, 01/22/2022 Tobacco 10 or more cigarettes (1/2 pack or more)/day in last 30 days Tobacco Use:. Smokeless tobacco user within last 30 days Smokeless Tobacco Use:. Cigarettes, 01/22/2022 Immunizations Vaccine Da (more content not included)...[facility] Comment on above:Result Comment: Electronically Signed By: Tien HURTADO MD\.br\Date and Time Signed: 01/22/22 15:38 EDT\.br\Electronically Co-Signed By: Sandy Valenzuela\.br\Date and Time Co-Signed: 01/22/22 15:35 EDTCT ISAAK WO CONon [id number] ISAAK WO CONEXAMINATION: CT ISAAK HOLLIDAY CON, 11/22/2021 3:08 PM EDT HISTORY: Lumbar radiculopathy radiating into both legs COMPARISON: CT abdomen pelvis 02/10/2021 TECHNIQUE: CT of the lumbar spine was performed without IV contrast. CT dose reduction technique was used, including Automated Exposure Control. FINDINGS: PARASPINAL AREA: Normal with no visible mass. BONES: No fracture, pars defect, or osseous lesion. CERVICAL DISC LEVELS: 12-L1: No significant disc/facet abnormality, spinal stenosis, or foraminal stenosis. L1-L2: No significant disc/facet abnormality, spinal stenosis, or foraminal stenosis. L2-L3: Early degenerative disc disease is present without focal protrusion or neural impingement. L3-L4: Mild central canal bilateral foramen narrowing. Moderate diffuse disc bulging disc at reduction. Mild degenerative facet arthropathy and ligamentum flavum thickening. L4-L5: Mild-moderate central canal and moderate bilateral foramen narrowing. Moderate diffuse disc bulging without disc height reduction. Mild degenerative facet arthropathy. L5-S1: Moderate central canal and moderate marked bilateral foramen narrowing. Left central/paracentral disc extrusion extending inferiorly one half the height of S1. Moderate disc height reduction at L5-S1 with nitrogen within the disc. Moderate degenerative facet arthropathy. IMPRESSION: 1. L5-S1 disc extrusion and disc bulging causing moderate or possibly greater central canal narrowing and moderate-marked foramen narrowing bilaterally. 2. Mild-moderate degenerative changes and foramen narrowing at L3-4 and L4-5. 3. MRI of lumbar spine recommended for further evaluation. Electronically authenticated by: WIL MCCOLLUM Date: 2021-11-22 16:08[facility] Medical CenterBacterial blood cultureOrdered By: Eliazar Vargas on 11-07-2021 Bacteria identified Cx Nom (Bld)NO GROWTH 5 DAYSOur Lady Of Mercy Hospital - AndersonCOVID CepheidOrdered By: Eliazar Vargas on 54-50-8129IRNJ-CoV-2 (COVID-19) RNA ZULMA+probe Ql (Unsp spec)[facility] - AndersonGlucose Glucometer (BldC) [Mass/Vol]Ordered By: Di Patel on 93-68-3150Ecredue [Mass/Vol]125 mg/dLOur Lady Of Mercy Hospital - AndersonComment on above:Random Glucose Reference Range is dependent on time and content of last meal. Glucose of more than 200 mg/dL in a nonstressed, ambulatory subject supports the diagnosis of Diabetes Mellitus.No Panel InformationOrdered By: Di Patel on 52-40-7280Mzkkefx Glucose CommentGlu2: cleaned meterOur Lady Of Mercy Hospital - AndersonActivated partial thromboplastin time (aPTT) in platelet poor plasma by coagulation a Ordered By: Eliazar Vargas on 78-97-3572iGYK Coag (PPP) [Time]33.5 s25.1-36.5 [facility] - AndersonAmphetamine Screen Ql (U)Ordered By: Eliazar Vargas on 47-64-6905Sxjnzriwasoy Ql (U)NegativeNegMercy Health St. Rita's Medical CenterAutomated erythrocytes count in urine sediment (number/area) Ordered By: Eliazar Vargas on 73-69-7053BVD Auto (Urine sed) [#/Area]3-4 [HPF]0-4 [facility] - AndersonAutomated leukocytes count in urine sediment (number/area)Ordered By: Eliazar Vargas on 21-21-4599GSH Auto (Urine sed) [#/Area]None seen [HPF]0-4FSelect Medical TriHealth Rehabilitation HospitalBarbiturates [Presence] in UrineOrdered By: Eliazar Vargas on 17-62-0705Drpgiikqlazc Ql (U) NegativeNegMercy Health St. Rita's Medical CenterBasophils Auto (Bld) [#/Vol] Ordered By: Eliazar Vargas on 26-34-2203Pehmfsisg (Bld) [#/Vol]0.1 10*3/uL0.0-0.2 [facility] - AndersonBasophils/100 WBC Auto (Bld)Ordered By: Eliazar Vargas on 73-79-3254Fhevcklsx/100 WBC (Bld)0.7 %.[facility] - AndersonBenzodiazepines [Presence] in UrineOrdered By: Eliazar Vargas on 11-02-2021 Benzodiazepines Ql (U)NegativeNegMercy Health St. Rita's Medical CenterBilirubin Test strip Ql (U)Ordered By: Eliazar Vargas on 14-16-2707Jeliblyyf Ql (U) NegativeNegMercy Health St. Rita's Medical CenterBlood hemoglobin measurement (mass/volume)Ordered By: Eliazar Vargas on 23-51-2210Whmymeumwg (Bld) [Mass/Vol] 17.0 g/dL13.0-17.0[facility] - AndersonBlood leukocytes automated count (number/volume)Ordered By: Eliazar Vargas on 29-34-2301GFN (Bld) [#/Vol] 16.2 10*3/uL4.5-11.0[facility] - AndersonBody fluid albumin measurement (mass/volume)Ordered By: Eliazar Vargas on 45-59-9660Fzzwafp (Body fld) [Mass/Vol]3.9 g/dL3.2-5.5FSelect Medical TriHealth Rehabilitation HospitalCOVID Cepheid Ordered By: Eliazar Vargas on 24-79-3089ZXCH-CoV-2 (COVID-19) Ab IA QlNegative NegativeOur Lady Of Mercy Hospital - AndersonComment on above:This is a duplicate Cepheid Xpert Xpress CoV-2/Flu/RSV Plus RNA by RT-PCR result to be used for stat istical tracking purpose only.COVID-19 SOFIAOrdered By: Eliazar Vargas on 55-45-4614WKJW-CoV+SARS-CoV-2 (COVID-19) Ag IA.rapid Ql (Resp)NegativeNegative [facility] - AndersonComment on above:This is a duplicate Nerissa SARS Antigen (PAXTON) result to be used for statistical tracking purpose only. Cannabinoids [Presence] in Urine by Screen methodOrdered By: Eliazar Vargas on 25-46-1167Ejlansnonbuo Screen Ql (U)NegativeNegativeOur Lady Of Mercy Hospital - AndersonComment on above:These are unconfirmed results and should not be used for legal purposes. Drug Cut-Off Concentration: AMPH 1000 ng/mL TERESSA 200 ng/mL JERRI 200 ng/mL COCM 300 ng/mL OP 300 ng/mL PCP 25 ng/mL THC 20 ng/mLColor Auto (U)Ordered By: Eliazar Vargas on 89-94-7409Hbhyq (U)Yellow YellowOur Lady Of Mercy Hospital - AndersonCreatinine and Glomerular filtration rate.predicted panel (S/P/Bld)Ordered By: Eliazar Vargas on 71-21-2656Oyhwepiqaw [Mass/Vol]0.56 mg/dL0.64-1.27[facility] - AndersonEosinophils Auto (Bld) [#/Vol]Ordered By: Eliazar Vargas on 80-85-0539Iqpzwtgcqjn (Bld) [#/Vol]0.3 10*3/uL0.0-0.45[facility] - AndersonEosinophils/100 WBC Auto (Bld) Ordered By: Eliazar Vargas on 96-65-8982Syjcfbezchx/100 WBC (Bld)1.6 %.[facility] - AndersonErythrocyte distribution width Auto (RBC) [Ratio]Ordered By: Eliazar Vargas on 46-86-8819Vkyocxirsvv distribution width (RBC) [Ratio]14.2 %12.0-14.8[facility] - AndersonEstimated glomerular filtration rate (GFR) non- AmericanOrdered By: Eliazar Vargas on 76-98-8990FDF/1.73 sq M.predicted among non-blacks MDRD (S/P/Bld) [Vol rate/Area]> 60 mL/MinOur Lady Of Mercy Hospital - AndersonGlobulin Calc (S) [Mass/Vol]Ordered By: Eliazar Vargas on 13-11-7392Kgmlwntu (S) [Mass/Vol]4.4 g/dLOur Lady Of Mercy Hospital - Anderson Hematocrit Auto (Bld) [Volume fraction]Ordered By: Eliazar Vargas on 11-02-2021 Hematocrit (Bld) [Volume fraction]50.3 %38.8-50.0[facility] - AndersonKetones Auto test strip (U) [Mass/Vol]Ordered By: Eliazar Vargas on 09-83-8149Zuxqrcb (U) [Mass/Vol]NegativeNegativeOur Lady Of Mercy Hospital - AndersonLaboratory - Chemistry and Chemistry - challengeOrdered By: Eliazar Vargas on 53-99-0604Xuxexo [Catalytic activity/Vol]41.0 U/X49-28WjgpjiqviOur Lady Of Mercy Hospital - AndersonLabboicevilletory - CoagulationOrdered By: Eliazar Vargas on 70-34-3312DT Coag (PPP) [Time]11.5 s9.0-12.9[facility] - AndersonLabboicevilletory - Drug toxicologyOrdered By: Eliazar Vargas on 52-08-4441Wcgjhjf Ql (U)Negative NegativeOur Lady Of Mercy Hospital - AndersonLaboratory - Hematology and Cell counts Ordered By: Eliazar Vargas on 11-45-1068Anmecyyvq RBC/100 WBC (Bld) [Ratio]0.0 % 0-0.5FSelect Medical TriHealth Rehabilitation HospitalLaboratory - UrinalysisOrdered By: Eliazar Vargas on 96-77-5218Fzvimos casts LM Ql (Urine sed)None seen [LPF]0-8[facility] - AndersonLymphocytes Auto (Bld) [#/Vol]Ordered By: Eliazar Vargas on 82-76-0191Xcbapvctjxm (Bld) [#/Vol]2.6 10*3/uL1.00-4.8[facility] - AndersonLymphocytes/100 WBC Auto (Bld)Ordered By: Eliazar Vargas on 09-35-6938Tilazwiyppk/100 WBC (Bld)16.2 %.[facility] HospitalH Auto (RBC) [Entitic mass]Ordered By: Eliazar Vargas on 86-30-6910CIO (RBC) [Entitic mass]28.7 pg27.5-35.2FSelect Medical TriHealth Rehabilitation HospitalMCHC Auto (RBC) [Mass/Vol]Ordered By: Eliazar Vargas on 54-20-4182SDXG (RBC) [Mass/Vol]33.8 g/dL 32.5-35.6FSelect Medical TriHealth Rehabilitation HospitalMCV Auto (RBC) [Entitic vol]Ordered By: Eliazar Vargas on 53-52-0027QXF (RBC) [Entitic vol]84.9 fL83.5-101[facility] - AndersonMonocytes Auto (Bld) [#/Vol]Ordered By: Eliazar Vargas on 36-76-4146Lquzhijtn (Bld) [#/Vol]1.1 10*3/uL0.0-0.8[facility] - AndersonMonocytes/100 WBC Auto (Bld)Ordered By: Eliazar Vargas on 11-02-2021 Monocytes/100 WBC (Bld)6.7 %.[facility] - AndersonNeutrophils Auto (Bld) [#/Vol]Ordered By: Eliazar Vargas on 31-07-2239Dxcfcuxbiuz (Bld) [#/Vol] 12.1 10*3/uL1.8-7.7FSelect Medical TriHealth Rehabilitation HospitalNeutrophils/100 WBC Auto (Bld)Ordered By: Eliazar Vargas on 18-52-1020Wbdmgnlqall/100 WBC (Bld)74.8 %. [facility] - AndersonNitrite Test strip Ql (U)Ordered By: Eliazar Vargas on 75-56-4055Txdvpzr Ql (U)NegativeNegativeOur Lady Of Mercy Hospital - AndersonNo Panel InformationOrdered By: Eliazar Vargas on 80-94-9582Nibrkwfxq GFR ()> 60 mL/MinOur Lady Of Mercy Hospital - AndersonComment on above: GFR estimated reference range: According to KDOQI guidelines, <60 ml/min/1.73m2 is sufficient todiagnose a patient with chronic kidney disease.Pharmacy Creatinine Clearance (Ndnh420.64[facility] - AndersonPhencyclidine Screen Ql (U)Ordered By: Eliazar Vargas on 39-07-5197Bchtxzelrrtja Ql (U)Negative NegativeOur Lady Of Mercy Hospital - AndersonPlatelet mean volume Auto (Bld) [Entitic vol]Ordered By: Eliazar Vargas on 98-39-2269Qjgpnzxs mean volume (Bld) [Entitic vol]9.1 fL6.6-10.1FSelect Medical TriHealth Rehabilitation HospitalPlatelet poor plasma international normalized ratio (INR) by coagulation assay (relatOrdered By: Eliazar Vargas on 87-24-3692JXQ Coag (PPP) [Relative time]1.0 {INR}[facility] - AndersonComment on above:INR Therapeutic Range A) Pre- and Peroperative OAT started two weeks before surgery. NOT HIP SURGERY: 1.5 - 2.5 HIP SURGERY: 2 - 3 B) Primary and secondary prevention of venous THROMBOSIS: 2 - 3 C) Active venous thrombosis, pulmonary embolism and prevention of recurrent venous thrombosis: 2 - 3 D) Prevention of arterial thromboembolism including patients with mechanical heart valves: 3 - 4.5Platelets Auto (Bld) [#/Vol]Ordered By: Eliazar Vargas on 68-57-9097Yevtpwsxg (Bld) [#/Vol]272 10*3/uL 150-450[facility] - AndersonProtein Auto test strip (U) [Mass/Vol] Ordered By: Eliazar Vargas on 17-22-8229Womhigg (U) [Mass/Vol]NegativeNegative [facility] - AndersonProtein [Mass/volume] in Serum or PlasmaOrdered By: Eliazar Vargas on 43-49-3255Wtvdidw [Mass/Vol]8.3 g/dL6.1-7.9[facility] - AndersonRBC Auto (Bld) [#/Vol]Ordered By: Eliazar Vargas on 61-72-0579KQB (Bld) [#/Vol]5.93 10*6/uL3.90-5.60[facility] Medical Centererum or plasma alanine aminotransferase measurement without P-5'-P (enzymatic activiOrdered By: Eliazar Vargas on 79-10-2679DRS No additional P-5'-P [Catalytic activity/Vol]33 U/W25-68CqtqvpcajCommunity Regional Medical Centererum or plasma albumin/globulin mass ratioOrdered By: Eliazar Vargas on 11-02-2021 Albumin/Globulin [Mass ratio]0.9 {ratio}[facility] Centererum or plasma alkaline phosphatase measurement (enzymatic activity/volume)Ordered By: Eliazar Vargas on 54-11-9960AWV [Catalytic activity/Vol]114 U/D71-84OfjcojqlcCommunity Regional Medical Centererum or plasma aspartate aminotransferase measurement (enzymatic activity/volume)Ordered By: Eliazar Vargas on 83-19-1766SGJ [Catalytic activity/Vol]18 U/J35-76CjgqfqbpyCommunity Regional Medical Centererum or plasma calcium measurement (mass/volume)Ordered By: Eliazar Vargas on 49-57-7317Mugxlue [Mass/Vol]9.9 mg/dL8.2-10.2FTrinity Health System East Campuserum or plasma chloride measurement (moles/volume)Ordered By: Eliazar Vargas on 11-02-2021 Chloride [Moles/Vol]91 mmol/O93-653DxnxzjxebCommunity Regional Medical Centererum or plasma glucose measurement (mass/volume)Ordered By: Eliazar Vargas on 11-02-2021 Glucose [Mass/Vol]159 mg/iZ62-891CkqndeigxOur Lady Of Mercy Hospital - AndersonComment on above:ADA recommended reference range Random Glucose Reference Range is dependent on time and content of last meal. Glucose of more than 200 mg/dL in a nonstressed, ambulatory subject supports the diagnosis of Diabetes Mellitus.Serum or plasma potassium measurement (moles/volume)Ordered By: Eliazar Vargas on 65-03-7921Jjxsacnfo [Moles/Vol]3.2 mmol/L3.5-5.1FTrinity Health System East Campuserum or plasma sodium measurement (moles/volume)Ordered By: Eliazar Vargas on 85-08-7157Gjxsgb [Moles/Vol]133 mmol/A271-898XvcbjbpvkCommunity Regional Medical Centererum or plasma total bilirubin measurement (mass/volume)Ordered By: Eliazar Vargas on 77-70-2497Kgwzganet [Mass/Vol]0.7 mg/dL0.3-1.2FTrinity Health System East Campuserum or plasma total carbon dioxide measurement (moles/volume)Ordered By: Eliazar Vargas on 82-36-2360WJ3 [Moles/Vol]30.3 mmol/L22.0-30.0[facility] Serum or plasma urea nitrogen measurement (mass/volume)Ordered By: Eliazar Vargas on 67-41-7225Imiw nitrogen [Mass/Vol]5 mg/dL9-23[facility] Medical Centerpecific gravity Auto test strip (U) [Rel density]Ordered By: Eliazar Vargas on 05-09-4541Ohrapoma gravity (U) [Rel density]1.0341.001-1.030[facility] Medical Centerquamous epithelial cells detection in urine sediment by light microscopyOrdered By: Eliazar Vargas on 39-66-4007Bafohiekxa cells.squamous LM Ql (Urine sed)0-1 [HPF]0-2FSelect Medical TriHealth Rehabilitation HospitalTroponin I.cardiac [Mass/volume] in Serum or Plasma by High sensitivity methodOrdered By: Eliazar Vargas on 00-42-4647Dkucydmk I.cardiac High sensitivity method [Mass/Vol]8 pg/mL 0-20[facility] - AndersonUrine bacteria detection by automated methodOrdered By: Eliazar Vargas on 53-88-3161Vaktcvfn Auto Ql (U)None seenNone SeenOur Lady Of Mercy Hospital - AndersonUrine clarity by refractometry automated Ordered By: Eliazar Vargas on 40-87-6693Qedggkw Refractometry automated (U)Clear ClearOur Lady Of Mercy Hospital - AndersonUrine cocaine detectionOrdered By: Eliazar Vargas on 75-38-8878Sxxuuzs Ql (U)NegativeNegMercy Health St. Rita's Medical CenterUrine glucose measurement by automated test strip (mass/volume)Ordered By: Eliazar Vargas on 87-81-7317Bmtcvcy Auto test strip (U) [Mass/Vol]>=1000 mg/dL NormalOur Lady Of Mercy Hospital - AndersonUrine hemoglobin detection by automated test stripOrdered By: Eliazar Vargas on 96-70-3108Sepacackpa Auto test strip Ql (U)TraceNegMercy Health St. Rita's Medical CenterUrine lactic acid measurement Ordered By: Eliazar Vargas on 71-17-2563Cvsxrvs (U) [Moles/Vol]1.7 mmol/L0.5-2.2 [facility] - AndersonUrine leukocyte esterase detection by automated test stripOrdered By: Eliazar Vargas on 98-21-5153Dajmqstdw esterase Auto test strip Ql (U)NegativeNegMercy Health St. Rita's Medical CenterUrobilinogen Auto test strip (U) [Mass/Vol]Ordered By: Eliazar Vargas on 13-63-1005Xauduqeqcqah (U) [Mass/Vol]Normal mg/dLNormalOur Lady Of Mercy Hospital - AndersonpH Auto test strip (U)Ordered By: Eliazar Vargas on 95-80-1923wW (U)7.0 [pH]5.0-9.0[facility] - AndersonCoding Summary.on 45-57-3752Cgndxr Summary. CD:[id number]:[id number]+PGhlYWQ+GF3DFFKaR94frDRowM4IV6bBQY4XHQVUGSIDTT5WDW1vm EW9XPikP9XsgyXs [file] YXBz (more content not included)...[facility] SystemOffice Visit (Cardiology)on 76-82-2739Vmrilr-up visitDiagnoses/Problems Assessed CAD (coronary artery disease) (414.00) (I25.10) Myocardial infarction (410.90) (I21.9) Hyperlipidemia (272.4) (E78.5) HTN (hypertension) (401.9) (I10) Diabetes mellitus (250.00) (E11.9) Current every day smoker (305.1) (F17.200) 1-1.5 ppd Overweight with body mass index (BMI) of 26 to 26.9 in adult (278.02,V85.22) (E66.3,Z68.26) History of PTCA (V45.82) (Z98.61) Orders CAD (coronary artery disease) Renew: RA Aspirin Adult Low Strength 81 MG Oral Tablet Chewable; chew and swallow 1 tablet by mouth once daily CAD (coronary artery disease), Diabetes mellitus, HTN (hypertension) Renew: Lisinopril 2.5 MG Oral Tablet; TAKE 1 TABLET DAILY CAD (coronary artery disease), HTN (hypertension) Renew: Metoprolol Tartrate 25 MG Oral Tablet; TAKE 1 TABLET TWICE DAILY CAD (coronary artery disease), Hyperlipidemia Renew: Atorvastatin Calcium 10 MG Oral Tablet; TAKE 1 TABLET AT BEDTIME Overweight with body mass index (BMI) of 26 to 26.9 in adult Healthy Weight Tips; Status:Complete - Retrospective Authorization; Done: 18Jul2021 Some eating tips that can help you lose weight.; Status:Complete - Retrospective Authorization; Done: 18Jul2021 SocHx: Current every day smoker You need to stop smoking. Though it is not easy, more than half of all adult smokers have quit. We encourage you to write down all the reasons you should quit smoking and set a quit date for yourself. Ask us how we can help. You may also call 1-638-VLEA-NOW for free resources and assistance.; Status:Complete - Retrospective Authorization; Done: 18Jul2021 Tobacco Use Screening; Status:Complete; Done: 18Jul2021 Unlinked Stop: Brilinta 90 MG Oral Tablet Patient Instructions By signing my name below, I, Valerie Wylie LPN,Chaparroibpriti, attest that this documentation has been prepared under the direction and in the presence of Dr. Zeeshan Wilhelm DO. Please bring all medicines, vitamins, and herbal supplements with you when you come to the office. Prescriptions will not be filled unless you are compliant with your follow up appointments or have a follow up appointment scheduled as per instruction of your physician. Refills should be requested at the time of your visit. Follow up in 1 year. Chief Complaint ZEESHAN LLANOS is being seen for a 6 month follow-up of. 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 1 year ago he sustained a non-ST elevation DC with revascularization ofthe RCA with a large 4.5 mm drug-eluting stent. He had minimal left ventricular dysfunction. He has underlying hyperlipidemia, diabetes, hypertension, ongoing tobacco use at least a pack to pack and a half a day. He remains on appropriate guideline directed medical therapies with excellent hemodynamics he is not obese. We counseled him extensively for 5 minutes today on tobacco cessation especially given the fact he has other inflammatory comorbidities including severe arthritis, diabetes and hyperlipidemia. Recommendations: He can discontinue his Brilinta at this juncture reinitiate meloxicam with warnings, smoking cessation counseling. We reviewed his lipid panel, he has mild hypertriglyceridemia and we also counseled him on the factand to aggressively controlled diabetes Will follow-up in 1 year Surgical History Problems History of Angioplasty History of Cardiac catheterization with stent placement Denied: History of Complete colonoscopy History of Lower back surgery History of Umbilical hernia repair Current Meds Medication NameInstruction Albuterol Sulfate HFA 108 (90 Base) MCG/ACT Inhalation Aerosol SolutionINHALE 1 TO 2 PUFFS EVERY 4 TO 6 HOURS NEEDED. Amitriptyline HCl - 50 MG Oral TabletTAKE 1 TABLET AT BEDTIME. Atorvastatin Calcium 10 MG Oral TabletTAKE 1 TABLET AT BEDTIME. Brilinta 90 MG Oral TabletTAKE 1 TABLET TWICE DAILY. Carisoprodol 350 MG Oral TabletTAKE 1 TABLET 3 TIMES DAILY NEEDED. Dexilant 60 MG Oral Capsule Delayed ReleaseTAKE 1 CAPSULE DAILY EVERY MORNING BEFORE BREAKFAST. hydroCHLOROthiazide 25 MG Oral TabletTAKE 1 TABLET DAILY. Invokana 300 MG Oral TabletTAKE 1 TABLET BY MOUTH ONCE DAILY 30 MINS BEFORE BREAKFAST Lisinopril 2.5 MG Oral TabletTAKE 1 TABLET DAILY. metFORMIN HCl ER 500 MG Oral Tablet Extended Release 24 HourTake 1 tablet twice daily Metoprolol Tartrate 25 MG Oral TabletTAKE 1 TABLET TWICE DAILY. Multi Vitamin Oral TabletTAKE 1 TABLET DAILY. Nitroglycerin 0.4 MG Sublingual Tablet SublingualPLACE 1 TABLET UNDER THE TONGUE EVERY 5 MINUTES FOR UP TO 3 DOSES NEEDED FOR CHEST PAIN.CALL 911 IF PAIN PERSISTS. Ozempic (0.25 or 0.5 MG/DOSE) 2 MG/1.5ML Subcutaneous Solution Pen-injectoras directed Pregabalin 150 MG Oral CapsuleTAKE 1 CAPSULE 3 TIMES DAILY. RA Aspirin Adult Low Strength 81 MG Oral Tablet Chewa (more content not included)...NormalUH TouchworksTobacco Screening.on 97-54-1254Ozwbr depression screening assessmentNoProvidence St. [facility] 250 DO Work Phone: Fall risk assessmentc) Not medically indicatedProvidence St. [facility]-[place] 250 DO Work Phone: Tobacco use status CPHSa) YesProvidence [facility]. [facility] [place] 250 DO Work Phone: Tobacco Screening.YesProv[facility] 250 DO Work Phone: CHEMISTRYOrdered By: SYSTEM SYSTEM on 07-13-2021 Cholesterol [Mass/Vol]137 mg/bKDztudx768 - 200 mg/dLFTMC RemisolCholesterol in HDL [Mass/Vol]34 mg/dLInvalid Interpretation CodeSAINT [facility]ANC[facility] [place] RemisolCholesterol in LDL [Mass/Vol]50 mg/dLNormal<=129mg/dLSAINT FRANCIS [facility] [place] RemisolCholesterol in VLDL [Mass/Vol]67 mg/dLHigh7 - 40 mg/dLSAINT FRANCIS [facility] [place] RemisolTriglyceride [Mass/Vol]337 mg/dLHigh<=149mg/dL [facility] [place] RemisolConsent for Treatmenton 80-64-9432Efiegfs for Treatment [id number]#1.00CD:127NormalTrumbull Regional Medical CenterLaboratory - Chemistry and Chemistry - challengeon 50-64-0946Occcllstjiu [Mass/Vol]50 mg/dLNormal<=129MP-[facility] 250 DO Work Phone: Cholesterol in LDL [Mass/Vol]67 mg/dLabove high ukqqkdray5-81BB-EoruuChildren'S [place] 250 DO Work Phone: Lipid Panelon 98-31-5823Upezlkoyfuz [Mass/Vol]137 mg/bIDraavm420-126FpmdyeTrumbull Regional Medical CenterComment on above:Performed By: #### [id number] #### [facility] [address], [place] [address]Vugsjdkhbna in HDL [Mass/Vol]34 mg/dLInvalid Interpretation CodeTrumbull Regional Medical CenterComment on above:Result Comment: HDL > or equal to 60 mg/dL: Low cardiovascular risk HDL < 40 mg/dL : High cardiovascular riskPerformed By: #### [id number] #### [facility] [address], [place] [address]Sptxqyelska in LDL [Mass/Vol]50 mg/dLNormal<=129Tr[facility]ull Regional Medical CenterComment on above:Performed By: #### [id number] #### [facility] [address] [place], [place] [address]Gjepwtivqak in VLDL [Mass/Vol]67 mg/dLHigh7-40Tr[facility]ull Regional Medical CenterComment on above:Performed By: #### [id number] #### Darius [facility] [address], [place] [address]Zssydfxdiwwq [Mass/Vol]337 mg/dLHigh<=149Tr[facility]ull Regional Medical CenterComment on above:Performed By: #### [id number] #### Darius [facility] [address], [place] [address]Qh Panel Informationon 59-86-5006691 mg/dLabove high threshold <=149[facility] 250 DO Work Phone: 1(248) 356-475534 mg/dLMP-[facility] 250 DO Work Phone: Comment on above:HDL > or equal to 60 mg/dL: Low cardiovascular riskHDL < 40 mg/dL : High cardiovascular murp636 mg/dLNormal 601-087MO-[facility] [place] [facility] 250 DO Work Phone: Physician Orderon 50-12-4008Cqnzxycyd Order [id number]#1.00CD:127[facility] Vital Signs Date TimeVital SignValuePerforming AdqerxqnbKzxpqirm10-19-6767 11:00-0400Body hlyqxn944.4 cmEugene Patricia MD Work Phone: [facility]09-04-2025 11:00-0400Body mass index (BMI) [Ratio]28.5 kg/r4DqwgwEugene Patricia MD Work Phone: [facility]09-04-2025 11:00-0400Body .98 kgEugene Patricia MD Work Phone: [facility]04-29-2025 12:07-0400Body zbsygy021.42 cmChussain Carmona MD Work Phone: [facility]04-29-2025 12:07-0400 Body mass index (BMI) [Ratio]27.1 kg/m2Crystal Carmona MD Work Phone: [phone])[address]04-29-2025 12:07-0400 Body xazwlxzqlyv92.5 [degF]Crystal Carmona MD Work Phone: 1(975)[address]04-29-2025 12:07-0400 Body mkeigj81.09 kgCrystal Carmona MD Work Phone: 1(692)[address] [place], [place] 5216004-29-2025 12:07-0400 Diastolic blood dvyvppkj20 mm[Hg]Crystal Carmona MD Work Phone: 1(811)[address]04-29-2025 12:07-0400 Heart rate80 /Ann Carmona MD Work Phone: 1(381)[address] [place], [place] 5216004-29-2025 12:07-0400 Respiratory rate18 /Ann Carmona MD Work Phone: 1(422)[address] [place], [place] 5216004-29-2025 12:07-0400 SaO2% (BldA) [Mass fraction]97 %Crystal Carmona MD Work Phone: 1(851)[address]04-29-2025 12:07-0400 Systolic blood rhekkrlk429 mm[Hg]Crystal Carmona MD Work Phone: 1(075)[address] [place], [place] 5216004-27-2025 14:42-0400 Body .42 [facility]04-27-2025 14:42-0400Body mass index (BMI) [Ratio]27.9 kg/i5XrsvesnesOur Lady Of Mercy [facility]04-27-2025 14:42-0400Body ayuylrsekak00.9 [degF][facility]04-27-2025 14:42-0400Body aobriz22.18 kgOur [facility]04-27-2025 14:42-0400Diastolic blood mfgjrxoo91 mm[Hg][facility] 07-19-2024 14:42-0400Heart rate73 /[facility] 07-19-2024 14:42-0400Respiratory rate19 /[facility] 07-19-2024 14:42-3938SxC4% (BldA) [Mass fraction]97 %[facility]04-27-2025 14:42-0400Systolic blood yuwnymvo399 mm[Hg][facility]04-17-2025 13:16-0400Body .4 cmEugene Patricia MD Work Phone: [facility]04-17-2025 13:16-0400Body mass index (BMI) [Ratio]28.5 kg/x2RzbpcEugene Patricia MD Work Phone: [facility]04-17-2025 13:16-0400Body wolsru49.98 kgEugene Patricia MD Work Phone: [facility]04-03-2025 16:00-0400Body kyybfe978.9 cmMaximusphilip Wilhelm Work Phone: [phone]99[facility]04-03-2025 16:00-0400 Body mass index (BMI) [Ratio]29.29 kg/f0JxinujfZeeshan Wilhelm Work Phone: [phone]04-03-2025 16:00-0400 Body .98 kgZeeshan Wilhelm DO Work Phone: 8(311)506-[address] [place], [place] 2626604-03-2025 16:00-0400 Diastolic blood auirolej09 mm[Hg]Zeeshan Choco GASTON Work Phone: 4(326)970-[address] [place], [place] 2626604-03-2025 16:00-0400 Heart rate60 /minWiluna Wilhelm Work Phone: 1(309)477-[address] [place], [place] 2626604-03-2025 16:00-0400 Systolic blood igiwffqr491 mm[Hg]Zeeshan Wilhelm DO Work Phone: 4(686)[address]12-05-2024 10:46-0500 Body kaisqg077.9 cmEugene Patricia MD Work Phone: [facility]12-05-2024 10:46-0500Body mass index (BMI) [Ratio]29.43 kg/w7NhplbEugene Patricia MD Work Phone: 1(880)[phone]12-05-2024 10:46-0500Body vhtcky40.43 kgEugene Patricia MD Work Phone: 1(341)[facility] [place], [place] 9212312-05-2024 10:46-0500Diastolic blood flxmcaow05 mm[Hg]Eugene Patricia MD Work Phone: 1(999)[address] [place], [place] 4408712-05-2024 10:46-0500Heart rate 75 /Mg Patricia MD Work Phone: 1(888)[address] [place], [place] 4408712-05-2024 10:46-0500Systolic blood kfbcolla854 mm[Hg]Eugene Patricia MD Work Phone: 1(617)[address] [place], [place] 4408710-30-2024 12:05-0400Body konpsngbjng43.9 [degF]Eugene Patricia MD Work Phone: 1(597)[address] [place], [place] 4408710-30-2024 12:05-0400Diastolic blood eufwycho67 mm[Hg]Eugene Patricia MD Work Phone: 1(821)[address] [place], [place] 4408710-30-2024 12:05-0400Heart rate 62 /Mg Patricia MD Work Phone: 1(201)[address] [place], [place] 4408710-30-2024 12:05-0400 Respiratory rate16 /Mg Patricia MD Work Phone: 1(286)[address] [place], [place] 4408710-30-2024 12:05-3902DuA3% (BldA) [Mass fraction]93 %Eugene Patricia MD Work Phone: 1(823)[address] [place], [place] 4408710-30-2024 12:05-0400Systolic blood wxwlyese20 mm[Hg]Eugene Patricia MD Work Phone: 1(244)[address] [place] [address] [place] Muimsm68-46-2883 11:45-0400Body begwyf212.9 cmEugene Patricia MD Work Phone: 1(116)[address] [place], [place] 4408710-28-2024 11:45-0400Body mass index (BMI) [Ratio]28.62 kg/h6XyqorEugene Patricia MD Work Phone: [facility]10-28-2024 11:45-0400Body ahhvkb31.71 kgEugene Patricia MD Work Phone: [facility]10-14-2024 12:40-0400Body ztnajq010.[address]10-14-2024 12:40-0400Body mass index (BMI) [Ratio]28.7 kg/d1Krabc[address]10-14-2024 12:40-0400Body kg[address]10-14-2024 12:11-0400 Body ljlkiinbmmn27.5 [degF][address]10-14-2024 12:11-0400 Diastolic blood eplhmxva47 mm[Hg][address]10-14-2024 12:11-0400Heart rate73 /min[address]10-14-2024 12:11-0400 Respiratory rate16 /min[address]10-14-2024 12:11-3932PtN1% (BldA) [Mass fraction]96 %[address]10-14-2024 12:11-0400 Systolic blood cblohqfv240 mm[Hg][address]09-19-2024 10:18-0400Body .9 cmEugene Patricia MD Work Phone: [facility]09-19-2024 10:18-0400Body mass index (BMI) [Ratio]29.84 kg/m1MaibzEugene Patricia MD Work Phone: [facility]09-19-2024 10:18-0400Body nzgehk04.79 kgEugene Patricia MD Work Phone: [facility]07-25-2024 14:34-0400Body augjlo554.9 cmEugene Patricia MD Work Phone: [facility]07-25-2024 14:34-0400Body mass index (BMI) [Ratio]28.2 kg/e7RhnxiEugene Patricia MD Work Phone: [facility]07-25-2024 14:34-0400Body wcifqc24.35 kgEugene Patricia MD Work Phone: [facility]07-25-2024 14:34-0400Diastolic blood tvfhmnvy15 mm[Hg]Eugene Patricia MD Work Phone: [facility]07-25-2024 14:34-0400Heart rate 72 /minEugene Patricia MD Work Phone: [facility]07-25-2024 14:34-0400Systolic blood dgpnjjog326 mm[Hg]Eugene Patricia MD Work Phone: [facility]06-06-2024 13:40-0400Body pvodsf194.42 cm[facility]06-06-2024 13:40-0400Body mass index (BMI) [Ratio]26.7 kg/t0VgizssqfhOur [facility] Of [facility]06-06-2024 13:40-0400Body .8 [degF][facility]06-06-2024 13:40-0400Body fiaoyo90 kgOur [facility]06-06-2024 13:40-0400Diastolic blood cogykgmy26 mm[Hg][facility] 08-29-2023 13:40-0400Heart rate70 /[facility] 08-29-2023 13:40-0400Respiratory rate18 /[facility] 08-29-2023 13:40-1264BsD6% (BldA) [Mass fraction]95 %[facility]06-06-2024 13:40-0400Systolic blood csusvurt578 mm[Hg][facility]05-16-2024 12:11-0400Body ofaxdf574.9 cmEugene Patricia MD Work Phone: [facility]05-16-2024 12:11-0400Body mass index (BMI) [Ratio]27.8 kg/w3HxiysEugene Patricia MD Work Phone: [facility]05-16-2024 12:11-0400Body tunjxo55.99 kgEugene Patricia MD Work Phone: [facility]05-16-2024 12:11-0400Diastolic blood cpzvhhiy41 mm[Hg]Eugene Patricia MD Work Phone: [facility]05-16-2024 12:11-0400Heart rate 70 /minEugene Patricia MD Work Phone: [facility]05-16-2024 12:11-0400 Respiratory rate14 /minEugene aPtricia MD Work Phone: [facility]05-16-2024 12:11-0400Systolic blood eywpfddo699 mm[Hg]Eugene Patricia MD Work Phone: [facility]05-08-2024 12:53-0400Diastolic blood bspruogb00 mm[Hg]Edy Verhoff PA-C Work Phone: [facility] [place] Iwmjil96-19-9867 12:53-0400Heart rate 70 /mingan Verhoff PA-C Work Phone: [facility]05-08-2024 12:53-9115TmO1% (BldA) [Mass fraction]97 %Eyd Verhoff PA-C Work Phone: [facility] [place] Fohcpv32-91-3999 12:53-0400Systolic blood mm[Hg]Edy Verhoff PA-C Work Phone: [facility] [place] Aowobj76-25-2337 10:00-0400Body buhywn121.9 cmEugene Patricia MD Work Phone: [facility]04-04-2024 10:00-0400Body mass index (BMI) [Ratio]27.8 kg/q9ZezgnEugene Patricia MD Work Phone: [facility] [place] Hscdmi54-67-1485 10:00-0400Body zkyrsk69.99 kgEugene Patricia MD Work Phone: 1(232)[facility] [place], [place] 9212304-04-2024 10:00-0400Diastolic blood ovsalfwv51 mm[Hg]Eugene Patricia MD Work Phone: 1(032)[address] [place], [place] 4408704-04-2024 10:00-0400Heart rate 74 /Mg Patricia MD Work Phone: 1(109)[address] [place], [place] 4408704-04-2024 10:00-0400Systolic blood mm[Hg]Eugene Patricia MD Work Phone: 1(962)[address] [place], [place] 4408703-19-2024 11:31-0400Body yzyozcmynca27.1 [degF]Eugene Patricia MD Work Phone: 1(941)[address] [place], [place] 4408703-19-2024 11:31-0400Diastolic blood mm[Hg]Eugene Patricia MD Work Phone: 1(164)[address] [place], [place] 4408703-19-2024 11:31-0400Heart rate 73 /gM Patricia MD Work Phone: 1(619)[address] [place], [place] 4408703-19-2024 11:31-0400 Respiratory rate25 /Mg Patricia MD Work Phone: 1(412)[address] [place], [place] 4408703-19-2024 11:31-6617XfJ3% (BldA) [Mass fraction]90 %Eugene Patricia MD Work Phone: 1(187)[address] [place], [place] 4408703-19-2024 11:31-0400Systolic blood mm[Hg]Eugene Patricia MD Work Phone: 1(063)[address] [place], [place] 4408703-19-2024 05:51-0400Body mass index (BMI) [Ratio]27.75 kg/c3WrxlzEugene Patricia MD Work Phone: 1(336)[address] [place], [place] 4408703-19-2024 05:51-0400Body szvfee04.8 kgEugene Patricia MD Work Phone: 1(121)[address] [place], [place] 4408703-18-2024 21:26-0400Body abkpmd058.9 cmEugene Patricia MD Work Phone: [facility]03-14-2024 13:49-0400Body khefut700.[address]03-14-2024 13:49-0400Body mass index (BMI) [Ratio]28.08 kg/m8Qvevs[address]03-14-2024 13:49-0400Body qzyfwtocunl18.01 [degF][address]03-14-2024 13:49-0400Body .[address]03-14-2024 13:49-0400Diastolic blood neogpghj85 mm[Hg][address]03-14-2024 13:49-0400Heart rate71 /min[address]03-14-2024 13:49-0400Respiratory rate16 /min [address]03-14-2024 13:49-0221IpH2% (BldA) [Mass fraction] 96 %[address]03-14-2024 13:49-0400Systolic blood pressure 127 mm[Hg][address]03-13-2024 15:42-0400Body qdujam809.42 cm[facility]03-13-2024 15:42-0400Body mass index (BMI) [Ratio]27 kg/h9TktokdniyOur Lady Of [facility]03-13-2024 15:42-0400Body pgsjhxcycze26.8 [degF][facility]03-13-2024 15:42-0400Body abnzxp45.98 kgOur [facility] Of [facility]03-13-2024 15:42-0400Diastolic blood ehohcigp00 mm[Hg][facility]03-13-2024 15:42-0400 Heart rate73 /[facility]03-13-2024 15:42-0400 Respiratory rate18 /[facility]03-13-2024 15:42-0400 SaO2% (BldA) [Mass fraction]95 %[facility]03-13-2024 15:42-0400Systolic blood fettgagv486 mm[Hg][facility] 05-30-2023 10:24-0500Body ofqbhr460.9 cmEugene Patricia MD Work Phone: [facility] Kgskyh52-99-9092 10:24-0500Body mass index (BMI) [Ratio]27.94 kg/k4DaqlaEugene Patricia MD Work Phone: [facility] Oyrqak34-04-2606 10:24-0500Body aryoqi62.44 kgEugene Patricia MD Work Phone: [facility] Pypqqt25-69-9174 15:01-0500Body pogcgy810.9 cmMegan Verhoff PA-C Work Phone: [facility] Dibrth64-37-7731 15:01-0500Body mass index (BMI) [Ratio]27.94 kg/s4Hqdht Verhoff PA-C Work Phone: [facility] Ournts61-90-5370 15:01-0500Body .44 kgMegan Verhoff PA-C Work Phone: [facility] Etefca94-85-5157 15:01-0500Diastolic blood pisnkmnq38 mm[Hg]Edy Verhoff PA-C Work Phone: [facility] Rvxqvz01-48-7330 15:01-0500Heart rate 74 /minMegan Verhoff PA-C Work Phone: [facility] Uuuirn33-29-6212 15:01-0500 Respiratory rate18 /minMegan Verhoff PA-C Work Phone: [facility] Fmeqbs78-10-6518 15:01-3979PkX4% (BldA) [Mass fraction]97 %Edy Verhoff PA-C Work Phone: [facility] Liuggv42-48-1639 15:01-0500Systolic blood hfmgrimn591 mm[Hg]Edy Verhoff PA-C Work Phone: [facility]01-31-2024 11:24-0500Body wmdtyn987.4 cmZeeshan Wilhelm DO Work Phone: [facility]01-31-2024 11:24-0500 Body mass index (BMI) [Ratio]26.65 kg/u3DydsxdnZeeshan Wilhelm DO Work Phone: [facility]01-31-2024 11:24-0500 Body cdydqc84.63 kgWiluna Wilhelm DO Work Phone: [facility]01-31-2024 11:24-0500 Diastolic blood lcsmasvv54 mm[Hg]Zeeshan Wilhelm DO Work Phone: 5(158)627-[address] [place], [place] 2626601-31-2024 11:24-0500 Heart rate76 /minZeeshan Wilhelm DO Work Phone: [address] [place], [place] 3735701-31-2024 11:24-0500 Systolic blood jmdwdjzu698 mm[Hg]Zeeshan Wilhelm DO Work Phone: [address] [place], [place] 3735710-10-2023 17:20-0400 Body .42 cmAmbthiago Feng Other [employer] Other 10-10-2023 17:20-0400Body mass index (BMI) [Ratio] 26.57 kg/b3DcbcfSandy Feng Other [employer] Other 10-10-2023 17:20-0400Body .6 [degF]Sandy Feng Other [employer] Other 10-10-2023 17:20-0400Body kjbilo87.36 kgMarcoer Jung Other [employer] Other 10-10-2023 17:20-0400Respiratory rate18 /minSandy Feng Other [place] [employer] Other 10-10-2023 17:20-6599RbD3% (BldA) [Mass fraction]92 % Sandy Feng Other [facility] [employer] Other 07-26-2023 11:02-0400Body ynluef897.42 cmChad M Blunt Work Phone: [id number]-Ytlnv [place] [employer]-[facility] 250 DO Work Phone: 1(129) 702-906107-26-2023 11:02-0400Body mass index (BMI) [Ratio] 26.65 kg/m2Chad M Blunt Work Phone: [id number]-Ycmem [place] [employer]-[place] 250 DO Work Phone: 1(998) 929-972107-26-2023 11:02-0400Body surface area Derived from formula2.16 m2Chad M Blunt Work Phone: 1(908) [phone]-Wkcrs [place] [employer]-[place] 250 DO Work Phone: 1(219) 193-700807-26-2023 11:02-0400Body zlachk65.63 kgChad M Blunt Work Phone: [id number]-Ehuax [place] [facility] 250 DO Work Phone: 1(841) 663-841507-26-2023 11:02-0400Diastolic blood jvcxvejh41 mm[Hg] Crystal M Blunt Work Phone: [id number]-Eaasr [place] [facility] 250 DO Work Phone: 1(101) 492-331507-26-2023 11:02-0400Heart rate64 /minChad M Blunt Work Phone: [phone]-Xshkj [place] [facility] 250 DO Work Phone: 1(396) 561-232207-26-2023 11:02-0400Systolic blood kopcohzg402 mm[Hg] Crystal M Blunt Work Phone: [phone]-Dkwoy [place] [facility] 250 DO Work Phone: 1(704) 198-911812-15-2022 11:54-0500Body tylvjw008.42 cmChad M Blunt Work Phone: KB-Llegk[address] [place] [address] [facility] 250 DO Work Phone: 1(657) 785-484812-15-2022 11:54-0500Body mass index (BMI) [Ratio] 27.44 kg/m2Chad Blunt Work Phone: AZ-Bokhe[address] [place] [address] [facility] 250 DO Work Phone: 1(711)[phone]-1066 11:54-0500Body surface area Derived from formula2.19 m2Chad Blunt Work Phone: AU-Wbxgh[address] [place] [address] [facility] 250 DO Work Phone: 1(412) 734-892412-15-2022 11:54-0500Body ewwedk41.35 kgChad Blunt Work Phone: FH-Blmft[address] [place] [address]-[place] 250 DO Work Phone: 1(919)[phone]-3235 11:54-0500Diastolic blood wmwefakl70 mm[Hg] Crystal Blunt Work Phone: DZ-Snkyt[address] [place] [address] [facility] 250 DO Work Phone: 1(323) 886-912812-15-2022 11:54-0500Heart rate88 /minChad M Blunt Work Phone: OT-Uvqcx[address] [place] [address] [facility] 250 DO Work Phone: 1(423) 342-413912-15-2022 11:54-0500Systolic blood xeighmds602 mm[Hg] Crystal Blunt Work Phone: WH-Hjhje[address] [place] [address] [facility] 250 DO Work Phone: 1(277) 943-875612-05-2022 17:21-0500Body oiftkywyjsg02.6 [degF]MD Rojas Blunt Work Phone: 1(339)0-[address] [place], [place] 8813212-05-2022 17:21-0500 Diastolic blood qnclukvm41 mm[Hg]MD Rojas Blunt Work Phone: 1(427)[address]12-05-2022 17:21-0500 Heart rate75 /minMD Crystal Blunt Work Phone: 1(566)[address] [place], [place] 5216012-05-2022 17:21-0500 Respiratory rate16 /minMD Crystal Blunt Work Phone: 1(141)[address] [place], [place] 5216012-05-2022 17:21-0500 SaO2% (BldA) [Mass fraction]98 %MD Rojas Blunt Work Phone: 1(609)[address] [place], [place] 5216012-05-2022 17:21-0500 Systolic blood mm[Hg]MD Rojas Blunt Work Phone: [address] [place], [place] 5216012-05-2022 04:26-0500 Body guppeu80.5 kgMD Crystal Blunt Work Phone: [address] [place], [place] 5216012-04-2022 08:18-0500 Body vuwcrn495.88 cmMD Crystal Blunt Work Phone: 1(680)[address] [place], [place] 5216008-12-2022 13:40-0400 Body oegylr108.42 cmMD Crystal Blunt Work Phone: 1(692)[address] [place], [place] 5216008-12-2022 12:00-0400 Heart rate72 /minMD Crystal Blunt Work Phone: 1(407)[address] [place], [place] 5216008-12-2022 12:00-0400 Respiratory rate16 /minMD Crystal Blunt Work Phone: 1(383)[address] [place], [place] 5216008-12-2022 12:00-0400 SaO2% (BldA) [Mass fraction]93 %MD Rojas Blunt Work Phone: 1(506)[address] [place], [place] 5216008-12-2022 08:00-0400 Body nequbnptyei19.4 [degF]MD Rojas Blunt Work Phone: 1(397)[address] [place], [place] 5216008-12-2022 08:00-0400 Diastolic blood vtolxvrk13 mm[Hg]MD Rojas Blunt Work Phone: 1(188)[address] [place], [place] 5216008-12-2022 08:00-0400 Systolic blood cuojdqyz750 mm[Hg]MD Rojas Blunt Work Phone: 1(602)formerly [facility] [place], [place] 8813208-12-2022 03:56-0400 Body vqhatr50 kgMD Crystal Blunt Work Phone: 1(558)[address] [place], [place] 5216008-12-2022 01:30-0400 Inhaled oxygen flow rate2 L/minMD Crystal Blunt Work Phone: 1(156)[address] [place], [place] 5216004-26-2022 10:41-0400 Body nkybls508.42 cmChad M Blunt Work Phone: LO-Hsuqg[address] [place] [address] [facility] 250 DO Work Phone: 1(398) 714-258104-26-2022 10:41-0400Body mass index (BMI) [Ratio] 26.65 kg/m2Chad Blunt Work Phone: BA-Pkqni[address] [place] [address] [facility] 250 DO Work Phone: 1(370) 396-489504-26-2022 10:41-0400Body surface area Derived from formula2.16 m2Chad Blunt Work Phone: SN-Qslyt[address] [place] [address] [facility] 250 DO Work Phone: 1(698) 342-315804-26-2022 10:41-0400Body wgerno18.63 kgChad M Blunt Work Phone: AS-Iffen[address] [place] [address] [facility]-[place] 250 DO Work Phone: 1(869) 876-553404-26-2022 10:41-0400Diastolic blood egvexxod67 mm[Hg] Crystal Blunt Work Phone: VZ-Nixhp[address] [place] [address] [facility]-[place] 250 DO Work Phone: 1(571) 781-270604-26-2022 10:41-0400Heart rate72 /minChad Blunt Work Phone: MP-Nocif [place] [facility] 250 DO Work Phone: 1(537) 586-719704-26-2022 10:41-0400Systolic blood tjkdplew260 mm[Hg] Crsytal Blunt Work Phone: [facility] 250 DO Work Phone: 1(625) 195-268504-21-2022 00:00-720913 1Chachristine Carmona Work Phone: 1(403) [phone]-[facility]ahjnCambridge [facility] 250 DO Work Phone: Comment on above:FSLDL Encounters Encounter DateEncounter TypeCare ProviderFacilityStart: 12-21-2024 End: 16-75-5503wkyqsxoirrOjbb M BluntFacility:[facility] MED CTRStart: 11-26-2024 End: 20-11-7252Fimthg outpatient visit 15 minutesEugene Patricia MD Work Phone: [facility] NeuroSurgeryComment on above: Arthrodesis status (Primary Dx); Hip pain, left; Chronic left SI joint painStart: 11-26-2024 End: 88-23-7891lmmuiczgatEVMCPDoctors Hospital at Renaissance Start: 44-88-2152uglxuxkkyiEwrl M BluntFacility:[facility] MED CTRStart: 10-14-2024 End: 45-20-9826poerjgjpguKOWXSFostoria City Hospitaltart: 26-86-3783kkflcfdvhnZvow Sunil BluntFacility:[facility] MED CTRStart: 07-24-2024 ambulatoryChad Sunil BluntFacility:[facility] MED CTRStart: 07-21-2024 End: 85-10-3709bscbtbmkyzRaxe M Blunt MD Work Phone: [facility] HospitalshabnamUniversity [facility] Work Phone: Start: 07-21-2024 End: 54-84-3892Pnzdrud encounter procedureCrystal Carmona MD Work Phone: [facility] Work Phone: Start: 07-19-2024 End: 73-02-8471rndhitofqfFpebhfvmn [facility] Work Phone: Start: 07-19-2024 End: 45-08-1553Agryqdl encounter procedureDinesh Physician [facility] Work Phone: Start: 07-09-2024 End: 22-63-1471Xtncax outpatient visit 15 Supriya Patricia MD Work Phone: [facility] NeuroSurgeryComment on above: Arthrodesis status (Primary Dx); Other spondylosis, lumbar regionStart: 07-09-2024 End: 07-68-4705hpquocphaxACWVV L SCHROEDERPike Community Hospital HospitalStart: 06-25-2024 End: 03-95-5753qhvlsllyuuZQDJYPRCHI [facility] AmbulatoryStart: 06-25-2024 End: 08-51-8353Egkrxj outpatient visit 25 [facility] Work Phone: [facility] CenterComment on above:Coronary artery disease, unspecified vessel or lesion type, unspecified whether angina present, unsp ecified whether mcgrath or transplanted heart; History of PTCA; Hyperlipidemia, unspecified hyperlipidemia type; Myocardial infarction, unspecified DC type, unspecified artery (Multi); Other specified diabetes mellitus without complication, with long-term current use of insulin; Current smoker; Body mass index (BMI) of 29.0 to 29.9 in adult; Drug-induced erectile dysfunctionStart: 31-26-2952pigialottyEjsp M Blunt Facility:[facility] CTRStart: 59-94-1763nsadvdkaabRwbe M BluntFacility:[facility] CTRStart: 00-56-8226cdfwsqngxhHsjf M BluntFacility:[facility] CTRStart: 02-27-2024 End: 70-82-9962Ekrzlo follow up visit related to original Nina Patricia MD Work Phone: [facility] NeuroSurgeryComment on above: Arthrodesis status (Primary Dx)Start: 02-27-2024 End: 71-93-2257lbwfwjvxbbJXQCCYudi Lemonsca Hamilton HospitalStart: 02-26-2024 End: 89-41-8875auvpsxaqwyTyqg M BluntFacility:[facility] CTRStart: 02-12-2024 End: 80-63-4533Mtnkfhrwj Simone Patricia MD Work Phone: [facility]icians NeuroSurgeryStart: 02-04-2024 End: 99-01-9042Xrikgy follow up visit related to original pxPnsc Neurosurgery NurseProMedica Physicians NeuroSurgeryComment on above:S/P spinal fusion (Primary Dx)Start: 88-48-4811zjcqopfqatTBVYSaugus General Hospital Ambulatory PPGStart: 01-27-2024 End: 61-73-4535Jywtggkrn encounterEugene Patricia MD Work Phone: [facility] NeuroSurgeryStart: 01-20-2024 End: 96-03-5370bdypjryrfaPTQNA L SCHROEDERPike Community Hospital HospitalStart: 01-20-2024 End: 09-86-3047Wxclivqybu hospital visit by Jose Patricai MD Work Phone: [facility] - GEN 8 AcuteComment on above:Unspecified mononeuropathy of bilateral lower limbs (Primary Dx); Spinal stenosis of lumbar region with neurogenic claudication; Spinal stenosis of cervical regionStart: 01-06-2024 End: 74-33-0575kinyncojhmJSNEE L [facility] HospitalStart: 01-06-2024 End: 97-17-0772bcxovmcsvgTWSNW L SCHROSaint Francis Hospital & Health Servicesca [facility] HospitalStart: 26-75-7019Wmkgnmywl for other preprocedural examinationEUGENE [facility] Hospitaltart: 01-06-2024 End: 32-39-2951Uzpfhwn encounter procedureMetro Pat Provider 16Pro[facility]ca [facility]Com[facility] on above:Pre-op testing (Primary Dx); Spinal stenosis of lumbar region with neurogenic claudicationStart: 01-06-2024 End: 82-03-8896Ikcqhxf encounter statusMetro [address] [place] [address] SystemStart: 01-03-2024 End: 93-66-2464Rrqdlzucs encounterKaty Mathias [facility] On [facility] Hospitaltart: 12-12-2023 End: 09-92-2635Lykiuz outpatient visit 25 minutesEugene Patricia MD Work Phone: [facility] Physicians NeuroSurgeryComment on above: Spinal stenosis of lumbar region without neurogenic claudication (Primary Dx); Lumbar radiculopathy; Lumbar spondylosisStart: 12-12-2023 End: 25-66-6222yiksfzdhrcTOZODYudi MatsonMedica Hamilton HospitalStart: 11-11-2023 End: 23-25-5301evdjtxftjxJACN BLUNTMorrow County Hospital HospitalStart: 10-31-2023 End: 00-97-0664rhqmoxzlhiXjjtzqhw [facility] HospitalStart: 10-31-2023 End: 16-28-5090ywnatqqgziGFHWF L SCHROEDERMorrow County Hospital HospitalStart: 10-17-2023 End: 97-20-1765Bxhabd outpatient visit 25 Supriya Patricia MD Work Phone: [facility] Physicians NeuroSurgeryComment on above: Spinal stenosis of lumbar region with neurogenic claudication (Primary Dx); Other spondylosis, lumbar region; Other spondylosis with myelopathy, cervical region; Spondylosis without myelopathy or radiculopathy, lumbar region; Arthrodesis statusStart: 09-11-2023 End: 33-53-9343Vptadrpvx Simone Patricia MD Work Phone: [facility] Physicians NeuroSurgeryStart: 09-02-2023 End: 82-77-7517Tyzguknhx encountersa HairF[facility] - Pain Management ClinicStart: 08-29-2023 End: 60-32-6061dfpqxvslwvFjgtxbkkaOhioHealth [facility] Work Phone: Start: 08-29-2023 End: 26-66-9770Oqbtqpn encounter procedureDavis [facility] Work Phone: Start: 08-08-2023 End: 41-28-8877Yggkbh follow up visit related to original Nina Patricia MD Work Phone: [facility] Physicians NeuroSurgeryComment on above: Other spondylosis with myelopathy, cervical region (Primary Dx)Start: 07-31-2023 End: 68-76-8181Agpuag outpatient visit 25 minutesEdy Mansfield PA-C Work Phone: [facility] - Pain Management ClinicComment on above:Spondylosis without myelopathy or radiculopathy, lumbar region (Primary Dx); Unspecified mononeuropathy of bilateral lower limbsStart: 06-27-2023 End: 61-90-9454Njqdbn follow up visit related to original pxEugene Patricia MD Work Phone: [facility] Physicians NeuroSurgeryComment on above: Postoperative pain (Primary Dx); Spondylosis without myelopathy or radiculopathy, cervical regionStart: 06-10-2023 End: 90-29-4318Jcettzauum and management of inpatientEugene Patricia MD Work Phone: [facility] - GEN 8 AcuteComment on above:Spinal stenosis of cervical regionStart: 06-07-2023 End: 68-79-7191Rdbjfu OnlyEugene Patricia MD Work Phone: [facility] Physicians NeuroSurgeryStart: 06-06-2023 End: 15-84-8620Diymzxk encounter procedureMetro [address] Pre-Admission Clinic On [facility] HospitalComment on above:Spinal stenosis of cervical region; Preop testingStart: 06-06-2023 End: 98-53-2975Prlisoj encounter statusMetro [address] [place], [place] [address]tart: 06-05-2023 End: 87-80-3070Whxikvg encounter procedureFirshenandoah memorial [facility] Work Phone: Start: 06-01-2023 End: 71-93-8742cmmdtytyrlOAMIKDodie Dixon AvailableStart: 05-30-2023 End: 76-84-8630Vvucbt outpatient visit 25 minutesEugene Patricia MD Work Phone: [facility] Physicians NeuroSurgeryComment on above: Cervical spinal stenosis (Primary Dx); Cervical spondylosis; Cervical radiculopathyStart: 24-14-2190Luojahoea encounterJennkrista Francisco [facility] Physicians NeuroSurgeryStart: 05-08-2023 End: 98-83-0826xivuwdjyadJBCXGParkview Health [facility] Start: 05-01-2023 End: 29-20-9082Fjavuf outpatient visit 15 minutesEdy Mansfield PA-C Work Phone: [facility] - Pain Management ClinicComment on above:Lumbar spondylosis (Primary Dx)Start: 04-24-2023 ambulatoryGeorgetown Behavioral Hospitaltart: 04-24-2023 End: 89-74-4687Ockhqf outpatient visit 25 minutesAdalsunil Brizuela Choco DO Work Phone: [facility] CenterComment on above:Coronary artery disease, unspecified vessel or lesion type, unspecified whether angina present, unsp ecified whether mcgrath or transplanted heart; History of PTCA; Myocardial infarction, unspecified DC type, unspecified artery (CMS/HCC); Hypertension, unspecified type; Hyperlipidemia, unspecified hyperlipidemia type; Other specified diabetes mellitus without complication, with long-term current use of insulin (CMS/HCC); Current smoker; Preop examinationStart: 04-24-2023 End: 30-03-2893Ijqpgwnlxrpsi examination doneZeeshan Wilhelm DO Work Phone: [facility] Work Phone: Start: 47-85-7069Ccufeuxid encounterMelany Wilson RN [facility] - Pain Management ClinicStart: 01-01-2023 End: 64-45-7017mksrizwtciGchxu Keller Other [facility] [employer] Other Start: 64-73-5934Pzotnl outpatient visit 25 minutes [facility] ClydeStart: 49-15-0302Zlylau outpatient visit 15 minutesCrystal Smart Blunt Work Phone: [phone]-Nbkof [facility] DO Work Phone: Start: 08-01-2022 End: 45-87-6464lzsifqcwzpJF CRYSTAL BLUNTFacility:J8Idvlb: 2022 End: 80-89-2398vtszruungySI DOCTOR MISCFacility:K1Bsigt: 04-23-2022 End: 12-52-1421hfdyiibvfbOD DOCTOR MISCFacility:G1Vywbb: 03-17-2022 End: 85-40-2575robyjrhjdsLN Crystal M Blunt Work Phone: [facility] Work Phone: Start: 03-17-2022 End: 52-15-6685Nmpbgwea ReferredMD Crystal Blunt Work Phone: [facility]-Lab [facility] [place] Work Phone: Start: 03-17-2022 End: 31-11-4821kwcqyycmbpNGGRD PARKERFacility:F6Kqart: 95-86-5302Tzievdekonon care manage srvc 14 day dischargeChachristine Smart Blunt Work Phone: [phone]-Bqhio [facility] DO Work Phone: Start: 26-21-5848wimhnfpaurWq. Zeeshan Wilhelm Facility:[id number]: 15-41-9861zkpjuxydjmHq. Zeeshan WilhelmFacility:[id number] Start: 02-25-2022 End: 67-46-3838Avglothejh and management of inpatientMD Crystal Blunt Work Phone: [facility]-[address] [place] [facility] Start: 81-83-5349khfjweyxbtRy. Ivanna TraboulssiFacility:[id number]: 02-25-2022 End: 82-60-0793ldkwcpshlhLJQTI PARKERFacility:S3Jfjyc: 01-22-2022 End: 92-91-8311aoibjgndlzWfsczjo R WATERSFacility:EU BellevueStart: 01-22-2022 End: 73-48-5573Rza-admission assessmentPafabiola HURTADO [facility] Start: 11-22-2021 End: 15-21-3418hrdengrikjYP WIL Swift TAMIKOEBERFacility:P5Pjqpg: 11-03-2021 End: 70-91-2066Srowtubywl and management of inpatientMD Crystal Blunt Work Phone: [facility]-3 [place] Med SurgStart: 31-84-4100thrfiytakjKqjplgi WATERSFacility:EU BellevueStart: 10-13-2021 ambulatoryPatrick WATERSFacility:FM MilanStart: 53-16-0247Fd RenewalCrystal Smart Blunt Work Phone: [phone]-Djbzw [facility] DO Work Phone: Start: 94-23-0079Kvmfsi outpatient visit 25 minutes Crystal Smart Blunt Work Phone: [phone]-Svlxp [facility] DO Work Phone: Start: 93-06-8709lcdggwscjwMslh Michael Blunt Facility:[id number]: 26-67-0916Iqiqb UpdateCrystal Smart Blunt Work Phone: [phone]-Anuxj [facility] DO Work Phone: Start: 07-13-2021 End: 43-13-7081hubokjwrcjOPVFNEU S SHELDONFacility:FTMCStart: 07-13-2021 End: 07-81-5035Ymbwvfq encounter procedureZEESHAN WILHELM [facility] Procedures DateProcedureProcedure DetailPerforming ClinicianStart: 44-84-9290Sjcez chest X-rayCrystal Carmona MD Work Phone: Start: 37-01-9490Ikzc bld gluc mntr dev cleared fda spec home useEugene Patricia MD Work Phone: Start: 51-35-7176Qvboe metabolic panel calcium total Eugene Patricia MD Work Phone: Start: 30-70-0738Wkln bld gluc mntr dev cleared fda spec home useEugene Patricia MD Work Phone: Start: 74-84-1872Owsm bld gluc mntr dev cleared fda spec home useEugene Patricia MD Work Phone: Start: 94-55-7086Dlgj bld gluc mntr dev cleared fda spec home useEugene Patricia MD Work Phone: Start: 53-90-0929Gaqb bld gluc mntr dev cleared fda spec home useEugene Patricia MD Work Phone: Start: 18-64-3374Uqovx spine lumbosacral 2/3 views Eugene Patricia MD Work Phone: Start: 46-80-3044Sfmpj metabolic panel calcium total Eugeen Patricia MD Work Phone: Start: 58-77-1479Voaaw depression screening assessment Eugene Patricia MD Work Phone: Start: 80-67-7980Wwwnu metabolic panel calcium total Eugene Patricia MD Work Phone: Start: 55-41-5630Lrkz bld gluc mntr dev cleared fda spec home useEugene Patricia MD Work Phone: Start: 01-20-2024 End: 46-85-2654Ylxc bld gluc mntr dev cleared fda spec home useEugene Patricia MD Work Phone: Start: 14-48-6256Dgkuz needle/cath spine/paraspinal dx/ther addonEugene Patricia MD Work Phone: Start: 01-20-2024 End: 65-62-7692YOKMRLS POSTERIOR INTERBODY FUSION LUMBAR SINGLE LEVELEugene Patricia MD Work Phone: Start: 11-75-0491Mzbc bld gluc mntr dev cleared fda spec home useEugene Patricia MD Work Phone: Start: 34-58-2768Lqzqedhn screenMetro 16Start: 25-35-4104Vbsow typing serologic aboEugene Patricia MD Work Phone: Start: 73-06-3394Eduio metabolic panel calcium total Eugene Patricia MD Work Phone: Start: 01-06-2024 End: 75-87-6183Lwlnbrf bacterial quanttative colony count urineEugene Patricia MD Work Phone: Start: 43-71-0071Fqhvo dip stick/tablet rgnt auto w/o microscopyEugene Patricia MD Work Phone: Start: 68-30-8314Nhj routine ecg w/least 12 lds trcg only w/o i&rJluna Patricia MD Work Phone: Start: 54-51-3474Xgtyba-up visitFollow-upEUGENE PATRICIAStart: 49-99-4088Hfkky spine cervical 2 or 3 viewsEugene Patricia MD Work Phone: Start: 78-14-0216Xwim bld gluc mntr dev cleared fda spec home useEugene Patricia MD Work Phone: Start: 61-30-4224Clnqz count hemoglobinEugene Patricia MD Work Phone: Start: 00-95-1223Mdzwa depression screening assessment Eugene Patricia MD Work Phone: Start: 06-10-2023 End: 51-68-0247Uexy bld gluc mntr dev cleared fda spec home useEugene Patricia MD Work Phone: Start: 74-37-8014Zyky bld gluc mntr dev cleared fda spec home useEugene Patricia MD Work Phone: Start: 92-92-5779Mmlib needle/cath spine/paraspinal dx/ther addonEugene Patricia MD Work Phone: Start: 69-67-7806Qcnc bld gluc mntr dev cleared fda spec home useEugene Patricia MD Work Phone: Start: 55-19-3929Bntx bld gluc mntr dev cleared fda spec home useEugene Patricia MD Work Phone: Start: 47-59-4963Kefj bld gluc mntr dev cleared fda spec home useEugene Patricia MD Work Phone: Start: 88-37-2170XVTVBKRI Luda Patrciia MD Work Phone: Start: 22-65-3464Pldoyize screenMetro 3Start: 01-39-2756UYGANEBR Luda Patricia MD Work Phone: Start: 96-80-9568LERO AND SCREENMichael Sunil Degroot MD Work Phone: start: 51-06-9473Knmkc metabolic panel calcium total Eugene Patricia MD Work Phone: Start: 33-86-8675GIMB PCR NASAL SWABEugene Patricia MD Work Phone: Start: 47-55-7208Ildlz dip stick/tablet rgnt auto w/o microscopyEugene Patricia MD Work Phone: Start: 78-98-7266Tfqmkfp of percutaneous transluminal coronary angioplastyHistory of PTCAWilliam Choco DO Work Phone: Start: 06-36-4388SD LHC & COR AngioMD Crystal Kid Bunch Work Phone: Start: 79-49-3530HM Stent 1st Vessel CX DESMD Crystal Blunt Work Phone: Start: 99-11-5210IY Crystal Blunt Work Phone: Start: 95-89-0107Apcxagbs tomography of abdomen and pelvis with contrast Crystal Kid Bunch Work Phone: Angioplasty of blood vesselCrystal Smart Kid Bunch Work Phone: Back structure, excluding neck (body structure)Tien HURTADO Blood culture for bacteria, including anaerobic screen MD Crystal Carmona Work Phone: Cardiac catheterizationChad ClearMoment[employer] Work Phone: Hernia of abdominal cavity (disorder)Tien HURTADO History of percutaneous transluminal coronary angioplastyHistory of PTCAChad M Kid Bunch Work Phone: History of percutaneous transluminal coronary angioplastyHistory of PTCAWilliam S Choco DO Work Phone: History of percutaneous transluminal coronary angioplastyHistory of PTCAWilliam S Choco DO Work Phone: Repair of umbilical herniaChad Kid Bunch Work Phone: [phone]-FpS-2, Influenza & RSV (PCR)MD Rojas Kid Bunch Work Phone: Surgical procedure on thoraxChad Kid Bunch Work Phone: Total colonoscopyChad Kid Bunch Work Phone: NEGATED: Highlighted row has not occurred!Total colonoscopyChad Kid Bunch Work Phone: Plan of Treatment DateCare ActivityDetailAuthorStart: 03-79-8139AAxQ,Tdap and Td Vaccines (2 - Tdap)DTaP,Tdap and Td Vaccines (2 - Tdap)[facility] [place] SystemStart: 69-00-2297ZOmZ/Tdap/Td Vaccines (2 - Tdap)DTaP/Tdap/Td Vaccines (2 - Tdap) [facility] HospitalStart: 64-42-3211Xbnwz BMI ScreeningAdult BMI ScreeningProSumma Health [facility] Campusca [facility] SystemStart: 07-13-2025 End: 33-57-9613Dzuzscw encounter hfzmlerak81/21/2026 3:20 PM EDT Office Visit [address] [place] [address] [place] [address] Zeeshan Wilhelm DO [address] [facility] [address] [place] [address] [place] [address] [facility] CenterStupper [place]: 36-65-0808Guume BMI ScreeningAdult BMI ScreeningMadison Health SystemStart: 52-97-9134Giqnbf Vaccines (1 of 2) Zoster Vaccines (1 of 2)[facility]: 56-58-0445Livyv BMI ScreeningAdult BMI ScreeningProLima City Hospital SystemStart: 68-16-1468Ozohexd ScreeningTobacco ScreeningMemorial Health System [facility] Hospitalca Health SystemStart: 72-56-8753Uryavefoop ScreeningDepression ScreeningProSumma Health Barber[facility] Campusca Health SystemStart: 18-43-4909Mxwuhwe ScreeningTobacco ScreeningProSumma Health Barber[facility] Campusca Health SystemStart: 98-76-9036Yuwmw BMI ScreeningAdult BMI ScreeningMadison Health SystemStart: 67-67-9728Bnfvw BMI ScreeningAdult BMI ScreeningMadison Health SystemStart: 58-08-1313Lwiwdzy ScreeningTobacco ScreeningMadison Health SystemStart: 48-19-5151Hdjna BMI ScreeningAdult BMI ScreeningMadison Health SystemStart: 11-26-2024 End: 21-68-7076WM Lumbar spine Views W right bending and W left bendingX-ray spine lumbar complete including flexion and extension 6+ views Imaging Routine Arthrodesis status Expected: 11/26/2024, Expires: 11/26/2025[facility] Built [place] SystemComment on above:Expected: 11/26/2024, Expires: 11/26/2025Start: 11-26-2024 End: 15-77-5621FI Pelvis 3 ViewsX-ray pelvis minimum 3 views Imaging Routine Hip pain, left Chronic left SI joint pain Expected: 11/26/2024, Expires: 11/26/2025 [facility] [place] SystemComment on above:Expected: 11/26/2024, Expires: 11/26/2025Start: 11-26-2024 End: 87-69-4478US Pelvis and Hip - left 2 ViewsX-ray hip left 2-3 views with or without pelvis Imaging Routine Hip pain, left Chronic left SI joint pain Expected: 11/26/2024, Expires: 11/26/2025[employer] Work Phone: Comment on above:Expected: 11/26/2024, Expires: 11/26/2025Start: 94-52-3647FpywsusheNationwide Children's HospitalStart: 10-08-2024 End: 13-73-6213SJ Lumbar spine WO contrastCT lumbar spine without contrast Imaging Routine Other spondylosis, lumbar region Arthrodesis status Expected: 10/08/2024 (Approximate), Expires: 07/09/2025[facility] Work Phone: Comment on above:Expected: 10/08/2024 (Approximate), Expires: 07/09/2025Start: 10-08-2024 End: 44-64-5271Brzgszn encounter qajycuqbg17/17/2025 11:15 AM EDT Office Visit [facility] [address] [place] [phone] Eugene Patricia MD [address] [place] [phone] [facility] NeuroSurgeryStart: 09-02-3395Bqdpbhi ScreeningTobacco ScreeningProMedica Health SystemStart: 56-76-2354Kjtaq BMI ScreeningAdult BMI ScreeningProMedica Health SystemStart: 00-08-4798Rwwrssy ScreeningTobacco ScreeningProSumma Health Barberton Campusca Health SystemStart: 07-02-2024 End: 90-80-9099Vbhjsps encounter zoieatlju95/10/2025 1:00 PM EDT Office Visit [facility] [address] [place] [phone] Eugene Patricia MD [address] [place] [phone] [facility] NeuroSurgeryStart: 55-83-1700Pspxb BMI ScreeningAdult BMI ScreeningProSumma Health [facility] Campusca [facility] SystemStart: 06-25-2024 End: 15-11-4787Wgazb 1996 panel - Serum or PlasmaLipid Panel Lab Routine Hyperlipidemia, unspecified hyperlipidemia type Expected: 06/25/2024 (Approx imate), Expires: 06/25/2025[facility] Work Phone: Comment on above:Expected: 06/25/2024 (Approximate), Expires: 06/25/2025Start: 99-18-1316Hjnmiyubpa ScreeningDepression Screening [facility] SystemStart: 91-52-5947Gkzooxz ScreeningTobacco Screening [facility] SystemStart: 75-79-9569Xzumu BMI ScreeningAdult BMI Screening [facility] SystemStart: 27-55-9973Kdhivmf ScreeningTobacco Screening [facility] SystemStart: 96-01-6091Aczai BMI ScreeningAdult BMI Screening [facility] SystemStart: 87-64-3762Cmldazn ScreeningTobacco Screening [facility] SystemStart: 05-27-2024 End: 21-01-7775VJ Lumbar spine 2 or 3 ViewsX-ray spine lumbar 2 or 3 views Imaging Routine Arthrodesis status Expected: 05/27/2024 (Approximate), Expires: 02/26/2025[facility] Work Phone: Comment on above:Expected: 05/27/2024 (Approximate), Expires: 02/26/2025Start: 33-60-6474Pmixu BMI ScreeningAdult BMI Screening [facility] SystemStart: 89-93-4592Fyghbow ScreeningTobacco Screening [facility] Medical Centertart: 04-14-2024 End: 03-96-5958Xjzzmyt encounter nwhwpehgr08/21/2025 9:10 AM EST Office Visit [facility] [address] [facility] [place] [address] [place] [address] Zeeshan Wilhelm DO [address] [facility] [address], [place] [address] [place], [place] [address] [facility] CenterStart: 29-40-9410Vjnmolu ScreeningTobacco ScreeningMemorial Health System [facility] Hospitalca [facility] SystemStart: 02-27-2024 End: 35-67-5861Fhwecja encounter ppyrwaoba55/05/2024 11:00 AM EST [facility] [address] [place] [address] Eugene Patricia MD [address] [place] [address] [facility] NeuroSurgeryStart: 02-08-2024 End: 70-44-0029YJ Cervical spine 2 or 3 views and (Views W flexion and W extension)X-ray spine cervical AP, lateral, flexion & extension views Imaging Routine Other spondylosis with myelopathy, cervical region Expected: 02/08/2024 (Approximate), Expires: 08/07/2024[facility] Work Phone: Comment on above:Expected: 02/08/2024 (Approximate), Expires: 08/07/2024Start: 02-04-2024 End: 30-64-6045Nebcjwsgw to same day surgery qtbsws2402/04/2024 11:30 AM EST Support Visit [facility] [address] [place] [address] [phone] Physicians NeuroSurgeryStart: 01-20-2024 End: 56-38-8611Frdmdwjun to same day surgery plcbno2801/20/2024 1:15 PM EDT - 01/20/2024 5:30 PM EDT Surgery [facility] - Surgery [address] [place] [phone] Eugene Patricia MD [address] [place] [address] STEALTH POSTERIOR INTERBODY FUSION LUMBAR SINGLE LEVEL/ L5-S1 Posterior Lumbar Interbody FusionTrinity Health System East Campus - SurgeryComment on above:STEALTH POSTERIOR INTERBODY FUSION LUMBAR SINGLE LEVEL/ L5-S1 Posterior Lumbar Interbody FusionStart: 01-20-2024 End: 91-31-6922NFIPZQQ POSTERIOR INTERBODY FUSION LUMBAR SINGLE LEVELSTEALTH POSTERIOR INTERBODY FUSION LUMBAR SINGLE LEVEL Spinal stenosis of lumbar region with neurogenic claudication 01/20/2024 1:15 PM EDUNC Health Lenoirtart: 05-17-3376Havojnqyvy hospital visit by /28/2024 1:15 PM EDT Hospital [facility] [address] [place] [address] Eugene Patricia MD [address] [place] [address] [facility] SurgeryStart: 01-06-2024 End: 64-52-7397Xcakwji encounter jzntodtbf62/14/2024 11:45 AM EDT Procedure visit [facility] On [address] [address]KbkWynzsh [facility] Hospitaltart: 12-20-2023 End: 16-33-5658Fhlbkjk encounter jdjabawis39/27/2024 9:30 AM EDT Office Visit [facility] [address] [place] [address] Eugene Patricia MD [address] [place] [phone] [facility] Physicians NeuroSurgeryStart: 86-16-1177Tipqu BMI ScreeningAdult BMI ScreeningAtrium Health Carolinas Medical Centertart: 29-76-7341OITWQ-19 Vaccine ( season)COVID-19 Vaccine ( season)[facility]Start: 09-75-1611Qlxnlrfml vaccination Influenza VaccineMadison Health SystemStart: 10-17-2023 End: 44-33-6902Fakdiqa encounter bbhvymqvy88/25/2024 2:45 PM EDT Office Visit [facility] [address] [place] [address] [place] [address] [place] [phone] [facility] NeuroSurgeryStart: 09-18-2023 End: 63-93-2839Odzwqdx encounter ivmegikui19/26/2024 3:00 PM EDT Office Visit [facility] [address] [facility] [address] Edy Mansfield PA-C [address] [place] [address] [facility] - Pain Management ClinicStart: 08-30-2023 End: 14-31-8350Mbtcvsxhf to same day surgery dnrrlj6808/30/2023 7:30 AM EDT - 08/30/2023 7:35 AM EDT Surgery [facility] - Pain P rocedures [address] [place] [address] Zeeshan Huerta MD [address] [facility] [address] INJECTION BLOCK NERVE BIlateral ClunealProMedica St. [facility] - Pain ProceduresComment on above:INJECTION BLOCK NERVE BIlateral ClunealStart: 08-30-2023 End: 90-64-5861GTUGYUVYY BLOCK NERVEINJECTION BLOCK NERVE Unspecified mononeuropathy of bilateral lower limbs 08/30/2023 7:30 AM [facility] SystemStart: 36-09-0375Yasrlileij hospital visit by mtvqzkqoe02/07/2024 7:30 AM EDT Hospital Encounter [facility] Procedures [address] [place] [phone] Zeeshan Huerta MD [address] [place] [address] [facility] - [facility] ProceduresStart: 08-08-2023 End: 83-72-4846Tvdhzcy encounter ynzqwdbyc62/16/2024 12:00 PM EDT Office Visit [facility] NeuroSurgery [address] [place] [phone] Eugene Patricia MD [address] [place] [phone] [facility] NeuroSurgeryStart: 07-31-2023 End: 84-90-7068Wmochmx encounter ibeftocyn94/08/2024 3:00 PM EDT Office Visit [facility] [address] [place] [address] Edy Mansfield PA-C [address] [facility] [place] [address] [facility] Pain Management ClinicStart: 06-27-2023 End: 76-05-0814Lzmwjhm encounter npvpxeyec02/04/2024 10:00 AM EDT Office Visit [facility] [address] [place] [phone] Eugene Patricia MD [address] [place] [phone] [facility] NeuroSurgeryStart: 06-10-2023 End: 27-01-7916Epkegnmdf to same day surgery smvgsp9006/10/2023 2:30 PM EDT - 06/10/2023 5:30 PM EDT Surgery [facility] [address] [place] [phone] Eugene Patricia MD [facility] [place] [phone] ANTERIOR CORPECTOMY CERVICAL/C5-7 Cervical Arthroplasty [01719 (CPT )][facility] SurgeryComment on above:ANTERIOR CORPECTOMY CERVICAL/C5-7 Cervical Arthroplasty [99414 (CPT )]Start: 84-59-6114Xmabhoxahf hospital visit by hhufmeode67/18/2024 2:30 PM EDT Hospital Encounter [facility] [address] [place] [phone] Eugene Patricia MD [address] [place] [phone] [facility] - SurgeryStart: 06-10-2023 End: 23-02-6041Smihewont corpectomy ant dcmprn cervical 1 segANTERIOR CORPECTOMY CERVICAL Spinal stenosis of cervical region 06/10/2023 2:30 PM EDTTOLEDO SURGERY Start: 06-06-2023 End: 78-86-2995Mrzjfjt encounter hditffpjt53/14/2024 1:15 PM EDT [facility] [address] [phone] [facility] On [facility] Start: 05-30-2023 End: 71-89-1119Jlgwlti encounter /07/2024 10:30 AM EST Office Visit [facility] [place] [phone] Eugene Patricia MD [address] [place] [phone] [facility] NeuroSurgeryStart: 05-01-2023 End: 58-33-5638Merjlma encounter slaxacuwv49/07/2024 3:00 PM EST Office Visit [facility] [address] [place] [phone] Edy Mansfield PA-C [address] [facility] [place] [address] [facility] Pain Management ClinicStart: 04-24-2023 End: 04-24-2024 reactive protein [Mass/volume] in Serum or Plasma by High sensitivity methodC-Reactive Protein, High Sensitivity Lab Routine Coronary artery disease, unspecified vessel or lesion type, unspecified whether angina present, unspecified whether mcgrath or transplanted heart Hypertension, unspecified type Hyperlipidemia, unspecified hyperlipidemia type Expected: 04/24/2023 (Approximate), Expires: 04/24/2024[facility] Work Phone: Comment on above:Expected: 04/24/2023 (Approximate), Expires: 04/24/2024Start: 04-24-2023 End: 19-03-8172Jmggh 1996 panel - Serum or PlasmaLipid Panel Lab Routine Coronary artery disease, unspecified vessel or lesion type, unspecified whether angina present, unspecified whether mcgrath or transplanted heart Hypertension, unspecified typeHyperlipidemia, unspecified hyperlipidemia type Expected: 04/24/2023 (Approximate), Expires: 04/24/2024[facility] Service Area Work Phone: Comment on above:Expected: 04/24/2023 (Approximate), Expires: 04/24/2024Start: 47-81-9462YMD, Provider: Zeeshan Wilhelm, Status: Pen, Time: 10:30 AMFUV, Provider: Zeeshan Wilhelm, Status: Pen, Time: 10:30 AMMP- [facility]-[address] DO Work Phone: Start: 12-28-0966TBE, Provider: Zeeshan Wilhelm, Status: Pen, Time: 11:10 AMFUV, Provider: Zeeshan Wilhelm, Status: Pen, Time: 11:10 AMMP-[facility]-Y[address] 250 DO Work Phone: Start: 05-90-4887RZB, Provider: Zeeshan Wilhelm, Status: Pen, Time: 9:40 AMFUV, Provider: Zeeshan Wilhelm, Status: Pen, Time: 9:[address] [facility] [address] DO Work Phone: Start: 13-49-5394IafabdbyxOur Lady Of [facility] Start: 04-54-0057Bfsztdta of Coronary Artery, One Artery with Drug-eluting Intraluminal Device, Percutaneous ApproachDilation of Coronary Artery, One Artery with Drug-eluting Intraluminal Device, Percutaneous ApproachCommunity Regional Medical Centertart: 12-06-2382Ibzkfkqvfck of Left Heart using Low Osmolar ContrastFluoroscopy of Left Heart using Low Osmolar ContrastCommunity Regional Medical Centertart: 38-72-7181Wwzdgldfwpj of Multiple Coronary Arteries using Low Osmolar ContrastFluoroscopy of Multiple Coronary Arteries using Low Osmolar ContrastCommunity Regional Medical Centertart: 02-25-2022 Measurement of Cardiac Sampling and Pressure, Left Heart, Percutaneous Approach Measurement of Cardiac Sampling and Pressure, Left Heart, Percutaneous Approach [facility]: 31-33-6256Ztafnpnh to bus steward [facility]ertart: 50-12-8138Mjwqyfpx admissionCommunity Regional Medical Centertart: 19-00-4564GjwzanptgUniversity Hospitals Tri[facility] Work Phone: Start: 11-75-1826Mmkqagjc admissionUniversity Hospitals Tripoint Medical Center [facility]tr Work Phone: Start: 22-92-2808VNL, Provider: Zeeshan Wilhelm, Status: Pen, Time: 10:20 AM-[facility]-[place] 250 DO Work Phone: Start: 48-25-2383Gzjpbgogf B Vaccines (1 of 3 - 19+ 3- dose series)Hepatitis B Vaccines (1 of 3 - 19+ 3-dose series)[facility]: 99-75-9401Sbvlyukffswz Vaccine: Pediatrics and At- Risk Adult Patients (1 of 2 - PCV)Pneumococcal Vaccine: Pediatrics and At-Risk Adult Patients (1 of 2 - PCV)[facility]: 06-30-1994 Urine screening for proteinDiabetes: Urine Protein ScreeningHolmes County [facility]: 53-67-5487Poywy BMI Follow Up PlanAdult BMI Follow Up Plan [facility] SystemStart: 63-26-9519Wyirqfdq foot examinationDiabetic Foot ExamProLima City Hospital SystemStart: 81-97-9065Tfrknszul C screeningHepatitis C ScreeningUnRegency Hospital [facility]: 35-24-2139Zdxnylauzk Screening Depression ScreeningMadison Health SystemStart: 53-66-0801Lqzounlo foot examinationDiabetes: Foot ExamUnRegency Hospital [place]: 06-30-1985 Glaucoma screeningDiabetes: Retinopathy ScreeningHol[facility]: 87-65-4295Ddskisgcjokf Vaccine: Pediatrics (0 to 5 Years) and At-Risk Patients (6 to 64 Years) (1 - PCV)Pneumococcal Vaccine: Pediatrics (0 to 5 Years) and At-Risk Patients (6 to 64 Years) (1 - PCV)[facility]: 90-27-5346SLL Vaccines (1 of 1 - Standard series)MMR Vaccines (1 of 1 - Standard series)[facility]: 04-86-3253DRWTC- 19 Vaccine (#1)COVID-19 Vaccine (#1)[facility]: 92-82-9125Zebeojjk screeningDiabetic Ophthalmology ExamWhite Hospital Start: 11-82-5989Aerapboleq A1c measurementDiabetes: Hemoglobin B6ELmenwpcnajRegency Hospital [place]: 21-39-8291Sngitlkuc B Vaccines (1 of 3 - 3-dose series)Hepatitis B Vaccines (1 of 3 - 3-dose series)[facility]: 44-57-2933OIM screeningHIV ScreeningUnRegency Hospital [place]: 64-49-1012Bxwkx panelLipid PanelUnRegency Hospital [place]: 07-61-6189Submujrru for malignant neoplasm of colonUnRegency Hospital [place]: 58-69-0818Vhiokw Use: DiabeticStatin Use: Diabetic ProMencompass health rehabilitation hospital of [facility] Health SystemStart: 76-95-2765Okmjswo CounselingTobacco Counseling [facility]: 72-68-9736Gwcbh screening for proteinAtrium Health Carolinas Medical Centertart: 38-10-0257Ixtzau Adult PhysicalYearly Adult Physical [facility] HospitalBacteria identified in Urine by CultureUrine Culture Microbiology Routine Spinal stenosis of cervical region Preop testing 06/06/2023 4:15PM EDTProMedica Work Phone: Blood chemistryUniversity Hospitals Tripoint Medical Center Ctr Work Phone: Patient EducationUniversity Hospitals Tripoint Medical Center Ctr Work Phone: Patient referralUniversity Hospitals Tripoint Medical Center Ctr Work Phone: Immunizations Immunization DateImmunizationNotesCare IywklvusJeiewiiy71-73-6907Tjdihkxat, injectable, Madin Cami Canine Kidney, preservative free, quadrivalentEugene Patricia MD Work Phone: White HospitalJvwvuo47-05-2804ruzblkbme virus vaccine, unspecified formulationEugene Patricia MD Work Phone: [facility] HospitalInrodh06-42-0305Flneetrgr, injectable, Madin Cami Canine Kidney, preservative free, quadrivalentChad M Blunt Work Phone: [phone]-PgtkrEssentia Health 250 DO Work Phone: [phone]ikiffa, tetanus toxoids and pertussis vaccineChad M Blunt Work Phone: [facility]11-16-2020influenza virus vaccine, unspecified formulationPatrick HURTADO [facility]11-16-2020influenza, seasonal, injectableChad M Blunt Work Phone: White HospitalUfduxz99-67-4486vtuhhlseo virus vaccine, unspecified formulationChad M Blunt Work Phone: [facility]10-03-2020influenza, seasonal, injectableEugene Patricia MD Work Phone: [facility] HospitalXqccsf49-69-3289vxymyvcmi virus vaccine, unspecified formulationPatrick HURTADO [facility]10-22-2019influenza, injectable, quadrivalent, preservative freeChad M Blunt Work Phone: [phone]-XgsuqEssentia Health 250 DO Work Phone: Payers DatePayer CategoryPayerPolicy [id number] Community Hospital [id number]-awd [id number] Cross Blue Shield Managed Care - Other 1.2.840.376675.1.13.424.2.7.9.402677.505.78935-62-8909Sectxzm88-48-4754Dqvtasa [id number] 2.160.1.286291.3.579.2.82090-07-7505Ypcyktz852542751 2.0.1.583149.3.57[id number] 2.0.1.524418.3.579.2.9[id number] 2.0.1.636704.3.579.2.77377-64-1727Fynqyfs92677596 2.0.1.892386.3.579.2.57099-43-4140Elzjqse85753090 2.0.1.080102.3.579.2.00670-75-5708Wrzivmo96064998 2.16840.1.987671.3.579.2.62855-53-3019Cvhvhgb50322816 2.0.1.790427.3.579.2.48243-66-1468Vcaaztv8582392 2.16840.1.622184.3.579.2.41096-90-1072Fvyjwbl2040995 2.16840.1.544978.3.579.2.69894-31-7599Kijqpde4284123 2.840.1.800313.3.579.2.22595-20-4993Dyidlpo4092988 2.840.1.121993.3.579.2.68319-41-1653Edlekbk3429453 2.840.1.877691.3.579.2.40101-47-3435Gzwtnbw2544621 2.840.1.542307.3.579.2.94676-25-6729Tvqrcgn4303809 2.0.1.844256.3.579.2.626416-70-2137Tqciyvq644645484 2..1.135515.3.579.2.387811-07-1624Jqosxxh028228548 2..1.261558.3.579.2.412703-20-8624Jtlehkb64831920 2.0.1.827511.3.579.2.939780-83-8173Oxrjlwz80451109 2..1.233981.3.579.2.447769-84-4238Jwfjntn49783828 2..1.538309.3.579.2.936425-86-7550Itvzazg30891318 2..1.229009.3.579.2.702443-60-6093Tdvksyj51397618 2..1.040846.3.579.2.169179-21-3128Eomnbxg115873833 2.0.1.841271.3.579.2.221882-04-9358Sehvhdk01212536 2.0.1.478226.3.579.2.296057-94-8772Hjyiibf66162717 2.16.840.1.416275.3.579.2.465756-75-6784Hcgyclf33364582 2.0.1.746944.3.579.2.256626-94-1164Oolxkke15932925 2.840.1.072579.3.579.2.307492-08-5525Dwmrult64845465 2.0.1.310206.3.579.2.044251-79-8859Whiduwm945191547 2..1.422153.3.579.2.766300-55-9510Odlcejc655794508 2..1.387885.3.579.2.951876-58-1007Wnkooha91200292 2..1.997423.3.579.2.180161-05-1155Ttgnrws51450382 2..1.381798.3.579.2.567772-96-1449Mgckqku24879622 2..1.009626.3.579.2.479465-36-5253Ssnmckg96573982 2..1.771136.3.579.2.36097-45-3253Hulekcz66239388 2..1.493577.3.579.2.11483-61-8610Ynfivvc80382412 2.0.1.597891.3.579.2.57864-68-6146Njrxngi46044188 2.0.1.928635.3.579.2.50076-07-3118Fxfekek18923771 2.840.1.697303.3.579.2.54178-20-6121Pqifmml96787191 2.0.1.737929.3.579.2.29585-95-9104Jlbbzce87863144 2.0.1.457714.3.579.2.30372-31-5535Nyjmmyo93317387 2.840.1.503316.3.579.2.96400-79-9536VasnmhyOTQ050941779 5j9uy625-63r1-742g-sk7a-1goc6006dgo5Wrcjvyl22002394 2.840.1.537049.3.579.2.531 Social History DateTypeDetailFacilityTobacco smoking statusAultman Orrville Hospitaltart: 05-05-2020 End: 91-33-5046Xen Assigned At [facility]: 05-05-2020 End: 99-20-9341Tnugap alcohol useSocial alcohol use-[facility] 250 DO Work Phone: Comment on above:monsters 2 daily;1-1.5 ppd;Start: 11-03-2021 End: 83-78-0769Yhbpwoq smoking status NHISSmoker (finding)[facility]ertart: 74-18-0769Phf Assigned At [facility]ertart: 59-28-1209Iwmfggp smoking statusHeavy tobacco smoker (finding)[facility] HospitalTobacco smoking statusSmokeless tobacco user within last 30 daysExec[facility]rology of [facility] Hospitaltart: 07-15-1992 End: 40-58-4815Nsivpov smoking status NHISSmokes tobacco dailyUnKettering Health – Soin Medical CenterStart: 80-03-6469Umsovpu of tobacco useCigarette Smoker [facility] SystemStart: 32-02-2484Gopagac use and exposureSmokeless tobacco non-userUnKettering Health – Soin Medical Center Work Phone: Start: 04-24-2023 End: 37-76-9583Schljld intakeLifetime non-drinker (finding)[facility] Work Phone: Start: 97-80-8888Zki Assigned At BirthNot on file [facility] [place] [facility] Hospitaltart: 04-14-2023 End: 26-13-6197Tnxenoqg to SARS-CoV-2 (event)Not [facility] SystemStart: 06-06-2023 End: 31-05-0071Rillvlz use and exposureFormer smokeless tobacco userMadison Health System End: 60-32-7601Vzfxnkx of tobacco useChews TobaccoMadison Health SystemStart: 06-06-2023 End: 99-02-7308Rqzbxrywo beverage intakeEx-drinker (finding)[facility] [place] [facility] HospitalHas the OrderBorder, gas, oil, or water company threatened to shut off services in your home in past 12C[facility] SystemHow often to you have a drink containing alcohol?Monthly or lessAultman Orrville Hospital [facility] [place] [facility] HospitalHow many standard drinks containing alcohol do you have on a typical day?1 or 2PSt. Tamm[facility] [place] [facility] HospitalHow often do you have 6 or more drinks on 1 occasion?NeverAtrium Health Carolinas Medical Centertart: 28-21-2634Zfmhmby CommentrarelClermont County Hospital Start: 03-01-2023 End: 16-23-9210Bmoduvx intakeCurrent non-drinker of alcohol (finding)[facility] [place] [facility] HospitalHow often to you have a drink containing alcohol?2-4 times a month [facility] [place] [facility] Hospitaltart: 12-21-2014 End: 39-16-1558TudSafx (finding)[facility] Medical Equipment Procedure CodeEquipment CodeEquipment Original TextEquipment IdentifierDates Implantation, neurostimulator, spinal cordCLIK-X ANCHORFDAStart: 05-13-2017 Implantation, neurostimulator, spinal cordGENERATOR/NURSE BEHAVIORAL HEALTH CARE PRECISONFDAStart: 04-44-6374Wsaegwoxoxzb, neurostimulator, spinal cordLEAD 2X8 [employer] [facility] 70CMFDAStart: 57-31-0706Zolvvlfkdgoc, neurostimulator, spinal cordCLIK-X ANCHOR FDAStart: 11-23-0597Afhfpqjrotpb, neurostimulator, spinal cordGENERATOR/NURSE BEHAVIORAL HEALTH CARE PRECISONFDAStart: 45-59-7475Muicydblpvzw, neurostimulator, spinal cordLEAD 2X8 [facility] 70CMFDAStart: 39-92-7372Pqfldxeyophc, neurostimulator, spinal cordCLIK-X ANCHORFDAStart: 83-78-7446Gfialltwkcfu, neurostimulator, spinal cord GENERATOR/NURSE BEHAVIORAL HEALTH CARE PRECISONFDAStart: 03-10-7969Psyajlnzzquw, neurostimulator, spinal cordLEAD 2X8 [facility] 70CMFDAStart: 67-30-9895Cndhncgstsbt, neurostimulator, spinal cordCLIK-X ANCHORFDAStart: 05-20-0370Doufzkoqmyel, neurostimulator, spinal cordGENERATOR/NURSE BEHAVIORAL HEALTH CARE PRECISONFDAStart: 05-13-2017 Implantation, neurostimulator, spinal cordLEAD 2X8 [employer] [facility] 70CMFDA Start: 56-34-7606Eraglhaeqoac, neurostimulator, spinal cordCLIK-X ANCHORFDA Start: 27-52-7352Rrzrwfdjoccl, neurostimulator, spinal cordGENERATOR/NURSE BEHAVIORAL HEALTH CARE PRECISONFDAStart: 26-50-4558Mczjsxhjvzcw, neurostimulator, spinal cordLEAD 2X8 [employer] 70CMFDAStart: 31-03-8769Waetoogwqhkz, neurostimulator, spinal cordCLIK-X ANCHORFDAStart: 68-47-8472Unmedrojpnmg, neurostimulator, spinal cord GENERATOR/NURSE BEHAVIORAL HEALTH CARE PRECISONFDAStart: 56-22-6355Gtligerzbqqh, neurostimulator, spinal cordLEAD 2X8 [employer] 70CMFDAStart: 80-06-7941Oxlowhwyfxhx, neurostimulator, spinal cordCLIK-X ANCHORFDAStart: 61-12-0721Fsqjuioqtdsi, neurostimulator, spinal cordGENERATOR/NURSE BEHAVIORAL HEALTH CARE PRECISONFDAStart: 05-13-2017 Implantation, neurostimulator, spinal cordLEAD 2X8 [employer] 70CMFDA Start: 68-82-1289Duifjwvcfdrz, neurostimulator, spinal cordCLIK-X ANCHORFDA Start: 72-82-5735Oyuontyajhul, neurostimulator, spinal cordGENERATOR/NURSE BEHAVIORAL HEALTH CARE PRECISONFDAStart: 03-70-3243Ekuqhhejiwop, neurostimulator, spinal cordLEAD 2X8 [employer] [facility] 70CMFDAStart: 94-30-4716Gpef-eluting coronary artery stent, eyk-lrvyylwawvfwb-mqdnezw-[id number] FDAStart: 46-13-8098Rsno-eluting coronary artery stent, dqj-zhmcuubukozej-dzufice-coated [id number] FDAStart: 62-65-2496Xycyiwko Lp Cervical Disc [id number]_impStart: 67-94-1371Cyx Precision Pt Trial - [id number]_vhiPdjaa: 55-65-7995Kjv Infinion Lead Trial 50cm - [id number]_fkdMhudq: 81-24-4489Mwe Nrstm Prcs Spctr 213cm 1 - [id number]_uliCezof: 02-61-5524Ceso Intvrtb 16mm 6mm Pstg Lp Spne Rpl Special [id number] - [id number]_vcrOmdwn: 80-16-2258Stbssi Stent-[id number]_impStart: 67-65-5448Qnbkv Bn Bn Fbr 10cc Frzdr Pliafx Rpl 452133+Specials [id number]+[id number] - [id number] - [id number]_impStart: 66-01-7772Rippud Spnl 34s48pt [employer]ix - [id number]_jsx Start: 50-52-1790Uvikfe Spnl 16t56sy [employer]ix - [id number]_onxWicno: 13-28-4166Zzn Spnl Cd Hzn Solera 40mm 4.75mm Preb Cocrmo Crv Ns Solera - [id number]_pnzYflmy: 83-37-6707Yfefb Bn 50mm 6.5mm Ma Lp 2 Ld Clr Cd Spne Ti Cocr Cd Hzn - [id number]_eosLapqy: 26-34-5651Katjj Bn 45mm 6.5mm Ma Lp 2 Ld Clr Cd Spne Ti Cocr Cd Hzn - [id number]_cvwChohz: 68-88-2669Iglar Bn 40x6.5mm 2 Ld Ma Clr - [id number]_ocbJlkpa: 79-26-0355Xszab Set Ti Spne Brk Off Cd Hzn Ns 4.75 Mm Lina - [id number]_vxwDrvqn: 46-85-1647Mghra: 13-75-5787Cmt Needle, Diabetic 31 gauge x 5/16 needleStart: 34-92-3144Wsm Needle, Diabetic 31 gauge x 5/16 needleStart: 07-21-2024 Goals DatePatient GoalDesired Activity/StatePersonal health goalComment on above: Evaluation of progress towards goal: Plan to return home with spouse. Functional Status DapaXhlrsmldhdYutofsOiqqxrzm01-38-3145Tvurnxswcj statusPatient at Baseline [facility] Work Phone: [phone]hfvnhhn StatusN/[facility]08-12-2022Functional statusPatient Not at BaselineSt. [facility] Hospital Work Phone: [phone]) [phone]vgakloix statusDisability Status [facility]St[facility] Work Phone: [facility] Mental Status BuijCvnixdeycnMhhexiBvjkczor42-07-3017Aqqchvxde functionCognitive Status [facility]St[facility] Work Phone: [phone]jxkfdv functionCognitive Status Patient Not at [facility]St[facility] Work Phone: [facility] Clinical Notes 11-03-2021 to 11-26-2024 Note Date & MsgjXhhhItbfqagr52-41-7659 History of Present illness Narrative* Eugene Patricia MD - 11/26/2024 11:00 AM EDT In person visit Chief complaint - follow up from back surgery - lumbar fusion (and cervical fusion) - both in 2023 [place]: 49 y/o male - He had neck surgery abotu 05/2023 And he had lower back surgery about 12/2023 He says he didn't know that having the fusion would still be this painful in his back He also still hsa numbness in c6/7 distribution in the left hand/fingers The pain in the lower back is a bit further out to the sides than it seemed prior to surgery He has some hip pain - left hip - near the trochanteric bursa It was even hard to get out of the truck 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 [employer] - but now they are doing other types too He said he should have gone there years ago when it was Joseph - he siad those employees get paid close to twice as much ROS: He has pain near the left greater trochanter of the hip Maybe some near the si joint He didn't really have pain with range of motion in the hip Also not really pain with palpation over the trochanter of the hip Past Medical History: Diagnosis Date Arthritis Asthma Back pain spinal cord stimulator Chronic pain disorder Coronary artery disease 2020 stents x3 Dental disease broken teeth, on ATB for dental infection started 06/05/23 Diabetes mellitus type 2, controlled ([facility] oral meds and insulin Fractures rt hand boxers fx GERD (gastroesophageal reflux disease) Hyperlipidemia Hypertension Injury of back Lumbar disc disease Lumbar stenosis with neurogenic claudication DC (myocardial infarction) ([facility] 2020 DC (myocardial infarction) ([facility] 02/24/2022 Neuropathy Psoriasis uses a cream prn Spinal stenosis of cervical region no injections to area, denies injury Visual impairment wears glasses Past Surgical History: Procedure Laterality Date BLOCK MEDIAL BRANCH NERVE Bilateral 11/16/2016 Performed by Zeeshan Huerta MD at [facility] C5-7 Cervical Arthroplasty N/A 06/10/2023 Performed by Eugene Patricia MD at [facility] CORONARY ANGIOPLASTY WITH STENT PLACEMENT 2020 CORONARY ANGIOPLASTY WITH STENT PLACEMENT 02/24/2022 HERNIA REPAIR umbilical, late 30's early 40's INJECTION BLOCK EPIDURAL CAUDAL STEROID N/A 01/12/2022 Performed by Zeeshan Huerta MD at [facility] BLOCK NERVE Bilat Cluneal Bilateral 08/30/2023 Performed by Zeeshan Huerta MD at [facility] BLOCK NERVE MEDIAL BRANCH Bilat L 4/5, 5/ Bilateral 11/16/2022 Performed by Zeeshan Huerta MD at [facility] BLOCK NERVE MEDIAL BRANCH Bilat L 4/5,5/1 Bilateral 09/28/2022 Performed by Zeeshan Huerta MD at [facility] BLOCK SACROILIAC JOINT Left 08/03/2022 Performed by Zeeshan Huerta MD at [facility] MEDIAL BRANCH NERVE BLOCK Bilateral L 4/5, 5/1 Bilateral 01/09/2019 Performed by Zeeshan [facility]erta MD at [facility] NERVE BLOCK Right Sciatic Right 04/17/2019 Performed by Zeeshan Huerta MD at [facility] NERVE ROOT LEFT L5,1 Left 09/21/2016 Performed by Zeeshan Huerta MD at [facility] SI JOINT Bilateral SI Joint Bilateral 02/06/2019 Performed by Zeeshan Huerta MD at [facility] SI JOINT Bilateral SI Joint Bilateral 12/12/2018 Performed by Zeeshan Huerta MD at [facility] INJECTION STEROID EPI 1 WITH SEDATION Right L 5, 1 NR Right 05/01/2019 Performed by Zeeshan Huerta MD at [facility] INJECTION STEROID EPI 1 WITH SEDATION: L45 parmjit x 1 N/A 12/17/2016 Performed by Zeeshan Huerta MD at [facility] INSERTION TRIAL STIMULATOR SPINAL CORD N/A 03/01/2017 Performed by Zeeshan Huerta MD at [facility] Lumbar L4/5 ESIx1 N/A 11/23/2016 Performed by Zeeshan Huerta MD at [facility] LUMBAR SPINE SURGERY 10/29/2012 microdiscectomy, left side MICRO LUMBAR DISCECTOMY L5-S1 RIGHT Right 07/21/2019 Performed by Eugene Patricia [facility] at [facility] HEALTH SERVICES RADIO FREQUENCY ABLATION L2/3,3/4 Left 08/10/2016 Performed by Zeeshan Huerta MD at [facility] RADIO FREQUENCY ABLATION L2/3,3/4 Right 07/27/2016 Performed by Zeeshan Huerta MD at [facility] RADIOFREQUENCY ABLATION SPINAL Left L 4/5, 5/1 Left 03/01/2023 Performed by Zeeshan Huerta MD at [facility] RADIOFREQUENCY ABLATION SPINAL right L 4/5, 5/1 Right 03/29/2023 Performed by Zeeshan Huerta MD at [facility] STEALTH POSTERIOR INTERBODY FUSION LUMBAR SINGLE LEVEL/ L5-S1 Posterior Lumbar Interbody Fusion N/A1 Performed by Eugene Patricia MD at [facility] Current Outpatient Medications on File Prior to Visit Medication Sig Dispense Refill albuterol (VENTOLIN HFA) 90 mcg/actuation inhaler Inhale 2 puffs every 4 (four) hours as needed forwheezing or shortness of breath Indications: asthma attack. Uses most days aspirin 81 mg Take 1 tablet (81 mg total) by mouth in the morning. Indications: blood clot prevention following percutaneous coronary intervention. Ok to resume 06/18/23. carisoprodoL (SOMA) 350 mg tablet Take 1 tablet (350 mg total) by mouth in the morning and 1 tablet(350 mg total) before bedtime. Indications: muscle spasm. dapagliflozin (FARXIGA) 10 mg tablet Take 1 tablet (10 mg total) by mouth in the morning. Indications: type 2 diabetes mellitus. HOLD 3 DAYS PRIOR TO SURGERY. finasteride (PROSCAR) 5 mg tablet Take 1 tablet (5 mg total) by mouth in the morning. Indications: enlarged prostate with urination problem. hydroCHLOROthiazide (HYDRODIURIL) 25 mg tablet Take 1 tablet (25 mg total) by mouth daily Indications: high blood pressure. HYDROcodone-acetaminophen (NORCO) 5-325 mg per tablet Take 1 tablet by mouth every 4 (four) hours as needed for pain. insulin glargine U-300 conc (TOUJEO MAX U-300 SOLOSTAR) 300 unit/mL (3 mL) insulin pen Inject 60 Unit under the skin Daily before evening meal Indications: type 2 diabetes mellitus. insulin lispro (HumaLOG KwikPen Insulin) 100 unit/mL insulin pen See Instructions, Instructions: INJECT TEN UNITS SUBCUTANEOUSLY (UNDER THE SKIN) WITH evening meal, # 15 mL, 5 Refill(s), Pharmacy: [id number][id number], INJECT TEN UNITS SUBCUTANEOUSLY (UNDER THE SKIN) WITH evening meal, 185.42, cm, 04/04/23 10:20:00 EST, Height, 98.43, kg, 02/26/24 9:58:00 EST, Weight Dosing lisinopriL (PRINIVIL,ZESTRIL) 2.5 mg tablet Take 1 tablet (2.5 mg total) by mouth in the morning. Indications: high blood pressure. meloxicam (MOBIC) 15 mg tablet Take 1 tablet (15 mg total) by mouth in the morning. metFORMIN (GLUCOPHAGE) 500 mg tablet Take 1 tablet (500 mg total) by mouth in the morning and 1 tablet (500 mg total) in the evening. Take with meals. Indications: type 2 diabetes mellitus. metoprolol tartrate (LOPRESSOR) 25 mg tablet Take 0.5 tablets (12.5 mg total) by mouth in the morning and 0.5 tablets (12.5 mg total) before bedtime. Indications: high blood pressure. pantoprazole (PROTONIX) 40 mg EC tablet Take 1 tablet (40 mg total) by mouth in the morning and 1 tablet (40 mg total) before bedtime. pregabalin (LYRICA) 150 mg capsule Take 1 capsule (150 mg total) by mouth 3 (three) times a day. 90capsule 1 rosuvastatin (CRESTOR) 20 mg tablet Take 1 tablet (20 mg total) by mouth in the morning. HIGH CHOLESTEROL. STIOLTO RESPIMAT 2.5-2.5 mcg/actuation mist Take 2 puffs by mouth every morning. asthma tamsulosin (FLOMAX) 0.4 mg capsule Take 1 capsule (0.4 mg total) by mouth in the morning. Indications: enlarged prostate with urination problem. UNIFINE PENTIPS 31 gauge x 5/16 needle No current facility-administered medications on file prior to visit. Allergies Allergen Reactions Cephalexin Itching Poison Jada Extract Facial Swelling Eye swelling Exam; Vss Coopreaive Age appropriate Nc/at Well developed Awake, alert, oriented CN intact Speech, cognition intact Motor/sensory stable Ambulatory Coordination intact Reflexes - deferred Review of filsm; I looked at his newest c and l spine x-rays today There is no clear hardware complication A/:P: 49 y/o male - had both c-spine and l-spine decompression and fusion in 2023. He still has pain nearthe left hip area. I will order hip x-rays left Si joint x-rays left And lower back x-rays - mosty flexion extesnio I reviewddhis CT lumbar from 09/2024 There is no loosening The bone healing looks easonable - he may have bridging bone on the left side at the disc space patricia- not as clear on the right I will plan to follow up with him PRN moving forward. I am happy to see him back if there are new changes. EUGENE PATRICIA MD documented in this encounterMemorial Health [facility] HospitalZestFinance [id number] Instructions* Patient Instructions* Shiela Hammonds CMA - 11/26/2024 11:00 AM EDT Given a left hip xray, lumbar xray, and a pelvis xray. Patient to call for results and to follow upas needed sp documented in this encounterMemorial Health System Sel[facility] General HospitalLambda Solutions [facility] [id number] NoteFrom: [id number] To: Crystal Carmona MD Sent: November 19, 2024 9:54:17 AM CDT Subject: Medication Management Due: November 20, 2024 9:54:17 AM CDT Originally Prescribed Drug: Drug: BD PEN NEEDLE 31GX5/16?, Use one needle as directed every day Quantity: 100 EA Days Supply: 0 Refills: 11 Substitutions Allowed Notes from Pharmacy: ICD 10 CODE E11.9 On Hold Pending Signature Preferred Alternative Drug: Unifine Pentips Plus 31 gauge x 5/16? needle, use one needle DIRECTED EVERY DAY Quantity: 200 EA Days Supply: 0 Refills: 11 Substitutions Allowed [id number] Evaluation note* Diagnosis Onset Date Resolution Status Admit Date Acute lower respiratory infection acuteApril 2024 2:17pm [facility] Work Phone: [phone]) 333-429604-27-2025 Evaluation note* Diagnosis Onset Date Resolution Status Admit Date Acute lower respiratory infection acuteApril 2024 2:17pmAsthma exacerbationacuteApril 2024 11:56am [facility] Work Phone: [phone]) 301-440404-17-2025 History of Present illness Narrative* Emerson Lau - 07/09/2024 1:15 PM EDT In person follow up visit CC: 6 month post-op s/p L5-S1 PLIF HPI: Zeeshan Llanos is a 49 y.o. male who underwent L5-S1 PLIF on 01/20/2024. He still endorses some pain, particularly when bending over. He states the pain is in the lower back, and more laterallythan before surgery. Pain occasionally radiates to the buttocks. He also notes some pain and tingling in the bottom of the feet and toes. He also has a spinal stimulator that he did not need to use after surgery, but has needed to keep it on continuously due to the pain. He notes taking 1-2 [place] daily. Denies any weakness or loss of sensation. He feel like he has gotten some improvement in the last month, and wonders if he went back to work too soon after his operation. ROS: Denies any bowel or bladder incontinence. Denies any fevers, chills, nausea, vomiting. Denies any trouble walking or with balance. Past Medical History: Diagnosis Date Arthritis Asthma Back pain spinal cord stimulator Chronic pain disorder Coronary artery disease 2020 stents x3 Dental disease broken teeth, on ATB for dental infection started 06/05/23 Diabetes mellitus type 2, controlled ([facility] oral meds and insulin Fractures rt hand boxers fx GERD (gastroesophageal reflux disease) Hyperlipidemia Hypertension Injury of back Lumbar disc disease Lumbar stenosis with neurogenic claudication DC (myocardial infarction) ([facility] 2020 DC (myocardial infarction) ([facility] 02/24/2022 Neuropathy Psoriasis uses a cream prn Spinal stenosis of cervical region no injections to area, denies injury Visual impairment wears glasses Past Surgical History: Procedure Laterality Date BLOCK MEDIAL BRANCH NERVE Bilateral 11/16/2016 Performed by Zeeshan Huerta MD at [facility] C5-7 Cervical Arthroplasty N/A 06/10/2023 Performed by Eugene Patricia MD at [facility] CORONARY ANGIOPLASTY WITH STENT PLACEMENT 2020 CORONARY ANGIOPLASTY WITH STENT PLACEMENT 02/24/2022 HERNIA REPAIR umbilical, late 30's early 40's INJECTION BLOCK EPIDURAL CAUDAL STEROID N/A 01/12/2022 Performed by Zeeshan Huerta MD at [facility] NERVE Bilat Cluneal Bilateral 08/30/2023 Performed by Zeeshan Huerta MD at [facility] NERVE MEDIAL BRANCH Bilat L 4/5, 5/1 Bilateral 11/16/2022 Performed by Zeeshan Huerta MD at [facility] NERVE MEDIAL BRANCH Bilat L 4/5,5/1 Bilateral 09/28/2022 Performed by Zeeshan Huerta MD at [facility] INJECTION BLOCK SACROILIAC JOINT Left 08/03/2022 Performed by Zeeshan Huerta MD at [facility] MEDIAL BRANCH NERVE BLOCK Bilateral L 4/5, 5/1 Bilateral 01/09/2019 Performed by Zeeshan Huerta MD at [facility] NERVE BLOCK Right Sciatic Right 04/17/2019 Performed by Zeeshan Huerta MD at [facility] NERVE ROOT LEFT L5,1 Left 09/21/2016 Performed by Zeeshan Huerta MD at [facility] SI JOINT Bilateral SI Joint Bilateral 02/06/2019 Performed by Zeeshan Huerta MD at [facility] SI JOINT Bilateral SI Joint Bilateral 12/12/2018 Performed by Zeeshan Huerta MD at [facility] INJECTION STEROID EPI 1 WITH SEDATION Right L 5, 1 NR Right 05/01/2019 Performed by Zeeshan Huerta MD at [facility] STEROID EPI 1 WITH SEDATION: L45 parmjit x 1 N/A 12/17/2016 Performed by Zeeshan Huerta MD at [facility] INSERTION TRIAL STIMULATOR SPINAL CORD N/A 03/01/2017 Performed by Zeeshan Huerta MD at [facility] Lumbar L4/5 ESIx1 N/A 11/23/2016 Performed by Zeeshan Huerta MD at [facility] LUMBAR SPINE SURGERY 10/29/2012 microdiscectomy, left side MICRO LUMBAR DISCECTOMY L5-S1 RIGHT Right 07/21/2019 Performed by Eugene Patricia MD at [facility] RADIO FREQUENCY ABLATION L2/3,3/4 Left 08/10/2016 Performed by Zeeshan Huerta MD at [facility] RADIO FREQUENCY ABLATION L2/3,3/4 Right 07/27/2016 Performed by Zeeshan Huerta MD at [facility] RADIOFREQUENCY ABLATION SPINAL Left L 4/5, 5/1 Left 03/01/2023 Performed by Zeeshan Huerta MD at [facility] RADIOFREQUENCY ABLATION SPINAL right L 4/5, 5/1 Right 03/29/2023 Performed by Zeeshan Huerta MD at [facility] STEALTH POSTERIOR INTERBODY FUSION LUMBAR SINGLE LEVEL/ L5-S1 Posterior Lumbar Interbody Fusion N/A1 Performed by Eugene Patricia MD at [facility] Current Outpatient Medications on File Prior to Visit Medication Sig Dispense Refill albuterol (VENTOLIN HFA) 90 mcg/actuation inhaler Inhale 2 puffs every 4 (four) hours as needed forwheezing or shortness of breath Indications: asthma attack. Uses most days aspirin 81 mg Take 1 tablet (81 mg total) by mouth in the morning. Indications: blood clot prevention following percutaneous coronary intervention. Ok to resume 06/18/23. carisoprodoL (SOMA) 350 mg tablet Take 1 tablet (350 mg total) by mouth in the morning and 1 tablet(350 mg total) before bedtime. Indications: muscle spasm. dapagliflozin (FARXIGA) 10 mg tablet Take 1 tablet (10 mg total) by mouth in the morning. Indications: type 2 diabetes mellitus. HOLD 3 DAYS PRIOR TO SURGERY. finasteride (PROSCAR) 5 mg tablet Take 1 tablet (5 mg total) by mouth in the morning. Indications: enlarged prostate with urination problem. hydroCHLOROthiazide (HYDRODIURIL) 25 mg tablet Take 1 tablet (25 mg total) by mouth daily Indications: high blood pressure. HYDROcodone-acetaminophen (NORCO) 5-325 mg per tablet Take 1 tablet by mouth every 4 (four) hours as needed for pain. insulin glargine U-300 conc (TOUJEO MAX U-300 SOLOSTAR) 300 unit/mL (3 mL) insulin pen Inject 60 Unit under the skin Daily before evening meal Indications: type 2 diabetes mellitus. insulin lispro (HumaLOG KwikPen Insulin) 100 unit/mL insulin pen See Instructions, Instructions: INJECT TEN UNITS SUBCUTANEOUSLY (UNDER THE SKIN) WITH evening meal, # 15 mL, 5 Refill(s), Pharmacy: [id number], INJECT TEN UNITS SUBCUTANEOUSLY (UNDER THE SKIN) WITH evening meal, 185.42, cm, 04/04/23 10:20:00 EST, Height, 98.43, kg, 02/26/24 9:58:00 EST, Weight Dosing lisinopriL (PRINIVIL,ZESTRIL) 2.5 mg tablet Take 1 tablet (2.5 mg total) by mouth in the morning. Indications: high blood pressure. meloxicam (MOBIC) 15 mg tablet Take 1 tablet (15 mg total) by mouth in the morning. metFORMIN (GLUCOPHAGE) 500 mg tablet Take 1 tablet (500 mg total) by mouth in the morning and 1 tablet (500 mg total) in the evening. Take with meals. Indications: type 2 diabetes mellitus. metoprolol tartrate (LOPRESSOR) 25 mg tablet Take 0.5 tablets (12.5 mg total) by mouth in the morning and 0.5 tablets (12.5 mg total) before bedtime. Indications: high blood pressure. pantoprazole (PROTONIX) 40 mg EC tablet Take 1 tablet (40 mg total) by mouth in the morning and 1 tablet (40 mg total) before bedtime. pregabalin (LYRICA) 150 mg capsule Take 1 capsule (150 mg total) by mouth 3 (three) times a day. 90capsule 1 rosuvastatin (CRESTOR) 20 mg tablet Take 1 tablet (20 mg total) by mouth in the morning. HIGH CHOLESTEROL. STIOLTO RESPIMAT 2.5-2.5 mcg/actuation mist Take 2 puffs by mouth every morning. asthma tamsulosin (FLOMAX) 0.4 mg capsule Take 1 capsule (0.4 mg total) by mouth in the morning. Indications: enlarged prostate with urination problem. UNIFINE PENTIPS 31 gauge x 5/16 needle No current facility-administered medications on file prior to visit. Allergies Allergen Reactions Cephalexin Itching Poison Jada Extract Facial Swelling Eye swelling Social History Socioeconomic History Marital status: Spouse name: Not on file Number of children: Not on file Years of education: Not on file Highest education level: Not on file Occupational History Not on file Tobacco Use Smoking status: Every Day Current packs/day: 1.50 Average packs/day: 1.5 packs/day for 32.0 years (48.0 ttl pk-yrs) Types: Cigarettes Start date: 07/15/1992 Smokeless tobacco: Former Types: Chew Quit date: 07/15/2018 Vaping Use Vaping status: Never Used Substance and Sexual Activity Alcohol use: Not Currently Drug use: No Sexual activity: Defer Other Topics Concern Not on file Social History Narrative Lives with in a one story home with no steps. Tub/shower. Has a bench. Has a walker. Has two beagles. Social Drivers of Health Financial Resource Strain: Not on file Food Insecurity: No Food Insecurity (07/09/2024) Hunger Screening Food Insecurity - Worry: Never True Food Insecurity - Inability: Never True Transportation Needs: No Transportation Needs (01/21/2024) PRAPARE - Transportation Lack of Transportation (Medical): No Lack of Transportation (Non-Medical): No Physical Activity: Not on file Stress: Not on file Social Connections: Not on file Interpersonal Safety: Not At Risk (01/21/2024) Humiliation, Afraid, Rape, and Kick questionnaire Fear of Current or Ex-Partner: No Emotionally Abused: No Physically Abused: No Sexually Abused: No Housing Instability: Low Risk (01/21/2024) Housing Instability Housing Instability: No Exam Ht 185.4 cm (6' 1 ) Wt 98 kg (216 lb) BMI 28.50 kg/m Mood/affect normal NC/AT Reasonably groomed and attired Neurological: Awake, alert, oriented x 3 CN intact Speech intact Cognition intact Motor No focal motor defecit Sensory intact Gait intact Station normal Coordination intact Reflexes intact in bilateral lower extremities Review of films: I personally reviewed and interpreted the patient's imaging during the clinic visit. Radiographs show no evidence of hardware failure or misalignment. A/P: Ananya Llanos is a 49 year old male who is 6 months post op from L5-S1 PLIF. He still has some back pain, and some pain in the sole of the foot. We will reassess with lumbar CT in 3 months to see if there is any foraminal narrowing that could be causing continued pain CT scan of lumbar spine Follow up in 3 months Emerson Lau, 3 07/09/2024 * Eugene Patricia MD - 07/09/2024 1:15 PM EDT In person follow up visit CC: 6 month post-op s/p L5-S1 PLIF HPI: Zeeshan Llanos is a 49 y.o. male who underwent L5-S1 PLIF on 01/20/2024. He still endorses some pain, particularly when bending over. He states the pain is in the lower back, and more laterallythan before surgery. Pain occasionally radiates to the buttocks. He also notes some pain and tingling in the bottom of the feet and toes. He also has a spinal stimulator that he did not need to use after surgery, but has needed to keep it on continuously due to the pain. He notes taking 1-2 [place] daily. Denies any weakness or loss of sensation. He feel like he has gotten some improvement in the last month, and wonders if he went back to work too soon after his operation. ROS: Denies any bowel or bladder incontinence. Denies any fevers, chills, nausea, vomiting. Denies any trouble walking or with balance. Medical History Past Medical History: Diagnosis Date Arthritis Asthma Back pain spinal cord stimulator Chronic pain disorder Coronary artery disease 2020 stents x3 Dental disease broken teeth, on ATB for dental infection started 06/05/23 Diabetes mellitus type 2, controlled [place] oral meds and insulin Fractures rt hand boxers fx GERD (gastroesophageal reflux disease) Hyperlipidemia Hypertension Injury of back Lumbar disc disease Lumbar stenosis with neurogenic claudication DC (myocardial infarction) [place] 2020 DC (myocardial infarction) [place] 02/24/2022 Neuropathy Psoriasis uses a cream prn Spinal stenosis of cervical region no injections to area, denies injury Visual impairment wears glasses Surgical History Past Surgical History: Procedure Laterality Date BLOCK MEDIAL BRANCH NERVE Bilateral 11/16/2016 Performed by Zeeshan Huerta MD at [facility] C5-7 Cervical Arthroplasty N/A 06/10/2023 Performed by Eugene Patricia MD at [facility] CORONARY ANGIOPLASTY WITH STENT PLACEMENT 2020 CORONARY ANGIOPLASTY WITH STENT PLACEMENT 02/24/2022 HERNIA REPAIR umbilical, late 30's early 40's INJECTION BLOCK EPIDURAL CAUDAL STEROID N/A 01/12/2022 Performed by Zeeshan Huerta MD at [facility] NERVE Bilat Cluneal Bilateral 08/30/2023 Performed by Zeeshan Huerta MD at [facility] NERVE MEDIAL BRANCH Bilat L 4/5, 5/1 Bilateral 11/16/2022 Performed by Zeeshan Huerta MD at [facility] NERVE MEDIAL BRANCH Bilat L 4/5,5/1 Bilateral 09/28/2022 Performed by Zeeshan Huerta MD at [facility] BLOCK SACROILIAC JOINT Left 08/03/2022 Performed by Zeeshan Huerta MD at [facility] MEDIAL BRANCH NERVE BLOCK Bilateral L 4/5, 5/1 Bilateral 01/09/2019 Performed by Zeeshan Huerta MD at [facility] NERVE BLOCK Right Sciatic Right 04/17/2019 Performed by Zeeshan Huerta MD at [facility] NERVE ROOT LEFT L5,1 Left 09/21/2016 Performed by Zeeshan Huerta MD at [facility] SI JOINT Bilateral SI Joint Bilateral 02/06/2019 Performed by Zeeshan Huerta MD at [facility] SI JOINT Bilateral SI Joint Bilateral 12/12/2018 Performed by Zeeshan Huerta MD at [facility] STEROID EPI 1 WITH SEDATION Right L 5, 1 NR Right 05/01/2019 Performed by Zeeshan Huerta MD at [facility] INJECTION STEROID EPI 1 WITH SEDATION: L45 parmjit x 1 N/A 12/17/2016 Performed by Zeeshan Huerta MD at [facility] INSERTION TRIAL STIMULATOR SPINAL CORD N/A 03/01/2017 Performed by Zeeshan Huerta MD at [facility] Lumbar L4/5 ESIx1 N/A 11/23/2016 Performed by Zeeshan Huerta MD at [facility] LUMBAR SPINE SURGERY 10/29/2012 microdiscectomy, left side MICRO LUMBAR DISCECTOMY L5-S1 RIGHT Right 07/21/2019 Performed by Eugene Patricia MD at [facility] RADIO FREQUENCY ABLATION L2/3,3/4 Left 08/10/2016 Performed by Zeeshan Huerta MD at [facility] RADIO FREQUENCY ABLATION L2/3,3/4 Right 07/27/2016 Performed by Zeeshan Huerta MD at [facility] RADIOFREQUENCY ABLATION SPINAL Left L 4/5, 5/1 Left 03/01/2023 Performed by Zeeshan Huerta MD at [facility] RADIOFREQUENCY ABLATION SPINAL right L 4/5, 5/1 Right 03/29/2023 Performed by Zeeshan Huerta MD at [facility] STEALTH POSTERIOR INTERBODY FUSION LUMBAR SINGLE LEVEL/ L5-S1 Posterior Lumbar Interbody Fusion N/A1 Performed by Eugene Patricia MD at [facility] Medications Ordered Prior to Encounter Current Outpatient Medications on File Prior to Visit Medication Sig Dispense Refill albuterol (VENTOLIN HFA) 90 mcg/actuation inhaler Inhale 2 puffs every 4 (four) hours as needed forwheezing or shortness of breath Indications: asthma attack. Uses most days aspirin 81 mg Take 1 tablet (81 mg total) by mouth in the morning. Indications: blood clot prevention following percutaneous coronary intervention. Ok to resume 06/18/23. carisoprodoL (SOMA) 350 mg tablet Take 1 tablet (350 mg total) by mouth in the morning and 1 tablet(350 mg total) before bedtime. Indications: muscle spasm. dapagliflozin (FARXIGA) 10 mg tablet Take 1 tablet (10 mg total) by mouth in the morning. Indications: type 2 diabetes mellitus. HOLD 3 DAYS PRIOR TO SURGERY. finasteride (PROSCAR) 5 mg tablet Take 1 tablet (5 mg total) by mouth in the morning. Indications: enlarged prostate with urination problem. hydroCHLOROthiazide (HYDRODIURIL) 25 mg tablet Take 1 tablet (25 mg total) by mouth daily Indications: high blood pressure. HYDROcodone-acetaminophen (NORCO) 5-325 mg per tablet Take 1 tablet by mouth every 4 (four) hours as needed for pain. insulin glargine U-300 conc (TOUJEO MAX U-300 SOLOSTAR) 300 unit/mL (3 mL) insulin pen Inject 60 Unit under the skin Daily before evening meal Indications: type 2 diabetes mellitus. insulin lispro (HumaLOG KwikPen Insulin) 100 unit/mL insulin pen See Instructions, Instructions: INJECT TEN UNITS SUBCUTANEOUSLY (UNDER THE SKIN) WITH evening meal, # 15 mL, 5 Refill(s), Pharmacy: [id number], INJECT TEN UNITS SUBCUTANEOUSLY (UNDER THE SKIN) WITH evening meal, 185.42, cm, 04/04/23 10:20:00 EST, Height, 98.43, kg, 02/26/24 9:58:00 EST, Weight Dosing lisinopriL (PRINIVIL,ZESTRIL) 2.5 mg tablet Take 1 tablet (2.5 mg total) by mouth in the morning. Indications: high blood pressure. meloxicam (MOBIC) 15 mg tablet Take 1 tablet (15 mg total) by mouth in the morning. metFORMIN (GLUCOPHAGE) 500 mg tablet Take 1 tablet (500 mg total) by mouth in the morning and 1 tablet (500 mg total) in the evening. Take with meals. Indications: type 2 diabetes mellitus. metoprolol tartrate (LOPRESSOR) 25 mg tablet Take 0.5 tablets (12.5 mg total) by mouth in the morning and 0.5 tablets (12.5 mg total) before bedtime. Indications: high blood pressure. pantoprazole (PROTONIX) 40 mg EC tablet Take 1 tablet (40 mg total) by mouth in the morning and 1 tablet (40 mg total) before bedtime. pregabalin (LYRICA) 150 mg capsule Take 1 capsule (150 mg total) by mouth 3 (three) times a day. 90capsule 1 rosuvastatin (CRESTOR) 20 mg tablet Take 1 tablet (20 mg total) by mouth in the morning. HIGH CHOLESTEROL. STIOLTO RESPIMAT 2.5-2.5 mcg/actuation mist Take 2 puffs by mouth every morning. asthma tamsulosin (FLOMAX) 0.4 mg capsule Take 1 capsule (0.4 mg total) by mouth in the morning. Indications: enlarged prostate with urination problem. UNIFINE PENTIPS 31 gauge x 5/16 needle No current facility-administered medications on file prior to visit. Allergies Allergies Allergen Reactions Cephalexin Itching Poison Jada Extract Facial Swelling Eye swelling Social History Socioeconomic History Marital status: Spouse name: Not on file Number of children: Not on file Years of education: Not on file Highest education level: Not on file Occupational History Not on file Tobacco Use Smoking status: Every Day Current packs/day: 1.50 Average packs/day: 1.5 packs/day for 32.0 years (48.0 ttl pk-yrs) Types: Cigarettes Start date: 07/15/1992 Smokeless tobacco: Former Types: Chew Quit date: 07/15/2018 Vaping Use Vaping status: Never Used Substance and Sexual Activity Alcohol use: Not Currently Drug use: No Sexual activity: Defer Other Topics Concern Not on file Social History Narrative Lives with in a one story home with no steps. Tub/shower. Has a bench. Has a walker. Has two beagles. Social Drivers of Health Financial Resource Strain: Not on file Food Insecurity: No Food Insecurity (07/09/2024) Hunger Screening Food Insecurity - Worry: Never True Food Insecurity - Inability: Never True Transportation Needs: No Transportation Needs (01/21/2024) PRAPARE - Transportation Lack of Transportation (Medical): No Lack of Transportation (Non-Medical): No Physical Activity: Not on file Stress: Not on file Social Connections: Not on file Interpersonal Safety: Not At Risk (01/21/2024) Humiliation, Afraid, Rape, and Kick questionnaire Fear of Current or Ex-Partner: No Emotionally Abused: No Physically Abused: No Sexually Abused: No Housing Instability: Low Risk (01/21/2024) Housing Instability Housing Instability: No Exam Ht 185.4 cm (6' 1 ) Wt 98 kg (216 lb) BMI 28.50 kg/m Mood/affect normal NC/AT Reasonably groomed and attired Neurological: Awake, alert, oriented x 3 CN intact Speech intact Cognition intact Motor No focal motor defecit Sensory intact Gait intact Station normal Coordination intact Reflexes intact in bilateral lower extremities Review of films: I personally reviewed and interpreted the patient's imaging during the clinic visit. Radiographs show no evidence of hardware failure or misalignment. A/P: Ananya Llanos is a 49 year old male who is 6 months post op from L5-S1 PLIF. He still has some back pain, and some pain in the sole of the foot. We will reassess with lumbar CT in 3 months to see if there is any foraminal narrowing that could be causing continued pain CT scan of lumbar spine Follow up in 3 months JESSICA Osborn 07/09/2024 Attending addendum; I personally saw and evaluated the patient with the medical student - Emerson Lau MS3. The patient had lumbar decompression and fusion. He has een back to work. He has some pain - but he does feel that he is better than he was pre-op. He does not have any new motor/sensory deficit. His wound is healing well. I would like him to follow up with me again in clinic in about 3-[address] of the lumbar spine. EUGENE PATRICIA MD documented in this encounterWashington [facility] HospitalFl[facility]at[facility]04[facility]17[facility]25 Instructions* Patient Instructions* Shiela Hammonds CMA - 07/09/2024 1:15 PM EDT Patient was seen today in clinic and given a ct lumbar order and a follow up visit sp documented in this encounterWhite Hospital04-17-2025 Miscellaneous Notes* Medical Student - Emersontomas Lau - 07/09/2024 1:15 PM EDT Disclaimer: This note is intended for educational purposes only. It does not constitute a patient visit and is not to be used or relied on for treatment, billing, or any other purposes. It has been created solely for to enable the student to practice documentation to achieve the expected level of competency in charting and receive feedback regarding same. This note is not a part of the legal medical record. documented in this encounterWhite Hospital04-17-2025 Progress note* Medical Student - Emersontomas Lau - 07/09/2024 1:15 PM EDT Disclaimer: This note is intended for educational purposes only. It does not constitute a patient visit and is not to be used or relied on for treatment, billing, or any other purposes. It has been created solely for to enable the student to practice documentation to achieve the expected level of competency in charting and receive feedback regarding same. This note is not a part of the legal medical record. [facility]04-03-[facility]25 History of Present illness Narrative* Zeeshan Wilhelm, DO - 06/25/2024 3:30 PM EDT Chief Complaint Patient presents with Follow-up 1 year for coronary artery disease Subjective Zeeshan Llanos is a 48 y.o. male 48-year-old gentleman returns for annual follow-up, he is doing well other than multiple surgeries over the past year including C3-C4 cervical disc surgery, and another surgery (unknown). He denies any chest heaviness, pain, discomfort or angina or nitrate usage. He states he he and his primary care physician are working on his diabetes . He does complain of erectile dysfunction and is asking todiscontinue his metoprolol (which we discussed extensively). There are number of reasons for ED including tobacco use, diabetes, lack of exercise and ASHD, including medication side effects such as statins and beta-blockers. His last coronary intervention was February 2022, He is stable status post inferior DC in 2020 withprimary revascularization of the RCA, subsequent ACS event in February 2022 with revascularization of the circumflex (RCA stent was widely patent) with mild LV dysfunction. His NYHA classification is class IIc We have counseled him for 5 minutes today on tobacco cessation, will initiate a trial of [id number] mg as needed (not currently using nitrates or on long- acting nitrates) obtain lipid panel, otherwise follow-up in 1 year Review of Systems All other systems reviewed and are negative. Vitals: 06/25/24 1600 BP: 118/66 BP Location: Left arm Patient Position: Sitting Pulse: 60 Weight: 98 kg (216 lb) Height: 1.829 m (6') Objective Physical Exam Constitutional: Appearance: Normal appearance. HENT: Nose: Nose normal. Neck: Vascular: No carotid bruit. Cardiovascular: Rate and Rhythm: Normal rate. Pulses: Normal pulses. Heart sounds: Normal heart sounds. Pulmonary: Effort: Pulmonary effort is normal. Abdominal: General: Bowel sounds are normal. Palpations: Abdomen is soft. Musculoskeletal: General: Normal range of motion. Cervical back: Normal range of motion. Right lower leg: No edema. Left lower leg: No edema. Skin: General: Skin is warm and dry. Neurological: General: No focal deficit present. Mental Status: He is alert. Psychiatric: Mood and Affect: Mood normal. Behavior: Behavior normal. Thought Content: Thought content normal. Judgment: Judgment normal. Allergies Cephalexin Current Medications Current Outpatient Medications: albuterol 90 mcg/actuation inhaler, Inhale 1 puff every 4 hours if needed., Disp: , Rfl: aspirin 81 mg chewable tablet, Chew 1 tablet (81 mg) once daily., Disp: , Rfl: carisoprodol (Soma) 350 mg tablet, Take 1 tablet (350 mg) by mouth 2 times a day as needed for muscle spasms., Disp: , Rfl: dapagliflozin propanediol (Farxiga) 10 mg, Take 1 tablet (10 mg) by mouth once daily., Disp: , Rfl: finasteride (Proscar) 5 mg tablet, Take 1 tablet (5 mg) by mouth once daily., Disp: , Rfl: hydroCHLOROthiazide (HYDRODiuril) 25 mg tablet, Take 1 tablet (25 mg) by mouth once daily., Disp: ,Rfl: HYDROcodone-acetaminophen ([place]) 5-325 mg tablet, Take 1 tablet by mouth every 6 hours if needed.,Disp: , Rfl: lisinopril 2.5 mg tablet, Take 1 tablet (2.5 mg) by mouth once daily., Disp: , Rfl: meloxicam (Mobic) 15 mg tablet, Take 1 tablet (15 mg) by mouth once daily., Disp: , Rfl: metFORMIN XR 500 mg 24 hr tablet, Take 1 tablet (500 mg) by mouth 2 times a day., Disp: , Rfl: metoprolol tartrate (Lopressor) 25 mg tablet, Take 1 tablet (25 mg) by mouth 2 times a day., Disp: , Rfl: nitroglycerin (Nitrostat) 0.4 mg SL tablet, Place 1 tablet (0.4 mg) under the tongue every 5 minutes if needed for chest pain., Disp: , Rfl: pregabalin (Lyrica) 150 mg capsule, Take 1 capsule (150 mg) by mouth 2 times a day., Disp: , Rfl: rosuvastatin (Crestor) 20 mg tablet, Take 1 tablet (20 mg) by mouth once daily., Disp: , Rfl: Stiolto Respimat 2.5-2.5 mcg/actuation mist inhaler, Inhale 2 Inhalations once daily., Disp: , Rfl: tamsulosin (Flomax) 0.4 mg 24 hr capsule, Take 1 capsule (0.4 mg) by mouth once daily., Disp: , Rfl: Assessment/Plan 1. Coronary artery disease, unspecified vessel or lesion type, unspecified whether angina present, unspecified whether mcgrath or transplanted heart Follow Up In Cardiology 2. History of PTCA 3. Hyperlipidemia, unspecified hyperlipidemia type 4. Myocardial infarction, unspecified DC type, unspecified artery (Multi) 5. Other specified diabetes mellitus without complication, with long-term current use of insulin 6. Current smoker 7. Body mass index (BMI) of 29.0 to 29.9 in adult 8. Drug-induced erectile dysfunction Scribe Attestation By signing my name below, Heidi Bee LPN, Scribe attest that this documentation has been prepared under the direction and in the presence of Ananya Wilhelm DO. Provider Attestation - Scribe documentation All medical record entries made by the Scribe were at my direction and personally dictated by me. Ihave reviewed the chart and agree that the record accurately reflects my personal performance of the history, physical exam, discussion and plan. documented in this encounterThe [facility] Work Phone: [phone]) 181-857704-03-2025 Instructions* Patient Instructions* Heidi Torres LPN - 06/25/2024 3:30 PM EDT Please bring all medicines, vitamins, and herbal supplements with you when you come to the office. Prescriptions will not be filled unless you are compliant with your follow up appointments or have a follow up appointment scheduled as per instruction of your physician. Refills should be requested at the time of your visit. BMI was above normal measurement. Current weight: 98 kg (216 lb) Weight change since last visit (-) denotes wt loss 14 lbs Weight loss needed to achieve BMI 25: 32.1 Lbs Weight loss needed to achieve BMI 30: -4.7 Lbs Provided instructions on dietary changes Provided instructions on exercise. documented in this encounterThe [facility] Hospital Work Phone: 1(951) 401-884912-05-2024 History of Present illness Narrative* Eugene Patricia MD - 02/27/2024 11:00 AM EST In person visit CC: s/p lumbar rfusion HPI: 48 y/o male S/p; L5-S1 fusion He is doing well so far He is about 5 weeks s/p that surgery He is on lyrica, soma and meloxicam He can use some tylenol as well when he goes back to work He wants to return to work about 03/30/2024 He does smoke cigarettes He is abbe gto try to quit smoking ROS: As above Past Medical History: Diagnosis Date Arthritis Asthma Back pain spinal cord stimulator Chronic pain disorder Coronary artery disease 2020 stents x3 Dental disease broken teeth, on ATB for dental infection started 06/05/23 Diabetes mellitus type 2, controlled [place] [place] meds and insulin Fractures rt hand boxers fx GERD (gastroesophageal reflux disease) Hyperlipidemia Hypertension Injury of back Lumbar disc disease Lumbar stenosis with neurogenic claudication DC (myocardial infarction) [place] [place] 2020 [place] (myocardial infarction) [place] [place] 02/24/2022 Neuropathy Psoriasis uses a cream prn Spinal stenosis of cervical region no injections to area, denies injury Visual impairment wears glasses Past Surgical History: Procedure Laterality Date BLOCK MEDIAL BRANCH NERVE Bilateral 11/16/2016 Performed by Zeeshan Huerta MD at [facility] C5-7 Cervical Arthroplasty N/A 06/10/2023 Performed by Eugene Patricia MD at [facility] CORONARY ANGIOPLASTY WITH STENT PLACEMENT 2020 CORONARY ANGIOPLASTY WITH STENT PLACEMENT 02/24/2022 HERNIA REPAIR umbilical, late 30's early 40's INJECTION BLOCK EPIDURAL CAUDAL STEROID N/A 01/12/2022 Performed by Zeeshan Huerta MD at [facility] NERVE Bilat Cluneal Bilateral 08/30/2023 Performed by Zeeshan Huerta MD at [facility] BLOCK NERVE MEDIAL BRANCH Bilat L 4/5, 5/1 Bilateral 11/16/2022 Performed by Zeeshan Huerta MD at [facility] BLOCK NERVE MEDIAL BRANCH Bilat L 4/5,5/1 Bilateral 09/28/2022 Performed by Zeeshan Huerta MD at [facility] BLOCK SACROILIAC JOINT Left 08/03/2022 Performed by Zeeshan Huerta MD at [facility] MEDIAL BRANCH NERVE BLOCK Bilateral L 4/5, 5/1 Bilateral 01/09/2019 Performed by Zeeshan Huerta MD at [facility] NERVE BLOCK Right Sciatic Right 04/17/2019 Performed by Zeeshan Huerta MD at [facility] NERVE ROOT LEFT L5,1 Left 09/21/2016 Performed by Zeeshan Huerta MD at [facility] SI JOINT Bilateral SI Joint Bilateral 02/06/2019 Performed by Zeeshan Huerta MD at [facility] SI JOINT Bilateral SI Joint Bilateral 12/12/2018 Performed by Zeeshan Huerta MD at [facility] IN[facility] STEROID EPI 1 WITH SEDATION Right L 5, 1 NR Right 05/01/2019 Performed by Zeeshan Huerat MD at [facility] INJECTION STEROID EPI 1 WITH SEDATION: L45 parmjit x 1 N/A 12/17/2016 Performed by Zeeshan Huerta MD at [facility] INSERTION TRIAL STIMULATOR SPINAL CORD N/A 03/01/2017 Performed by Zeeshan Huerta MD at [facility] Lumbar L4/5 ESIx1 N/A 11/23/2016 Performed by Zeeshan Huerta MD at [facility] LUMBAR SPINE SURGERY 10/29/2012 microdiscectomy, left side MICRO LUMBAR DISCECTOMY L5-S1 RIGHT Right 07/21/2019 Performed by Eugene Patricia MD at [facility] RADIO FREQUENCY ABLATION L2/3,3/4 Left 08/10/2016 Performed by Zeeshan Huerta MD at [facility] RADIO FREQUENCY ABLATION L2/3,3/4 Right 07/27/2016 Performed by Zeeshan Huerta MD at [facility] RADIOFREQUENCY ABLATION SPINAL Left L 4/5, 5/1 Left 03/01/2023 Performed by Zeeshan Huerta MD at [facility] RADIOFREQUENCY ABLATION SPINAL right L 4/5, 5/1 Right 03/29/2023 Performed by Zeeshan Huerta MD at [facility] STEALTH POSTERIOR INTERBODY FUSION LUMBAR SINGLE LEVEL/ L5-S1 Posterior Lumbar Interbody Fusion N/A1 Performed by Eugene Patricia MD at [facility] Current Outpatient Medications on File Prior to Visit Medication Sig Dispense Refill albuterol (VENTOLIN HFA) 90 mcg/actuation inhaler Inhale 2 puffs every 4 (four) hours as needed forwheezing or shortness of breath Indications: asthma attack. Uses most days aspirin 81 mg Take 1 tablet (81 mg total) by mouth in the morning. Indications: blood clot prevention following percutaneous coronary intervention. Ok to resume 06/18/23. carisoprodoL (SOMA) 350 mg tablet Take 1 tablet (350 mg total) by mouth in the morning and 1 tablet(350 mg total) before bedtime. Indications: muscle spasm. dapagliflozin (FARXIGA) 10 mg tablet Take 1 tablet (10 mg total) by mouth in the morning. Indications: type 2 diabetes mellitus. HOLD 3 DAYS PRIOR TO SURGERY. finasteride (PROSCAR) 5 mg tablet Take 1 tablet (5 mg total) by mouth in the morning. Indications: enlarged prostate with urination problem. hydroCHLOROthiazide (HYDRODIURIL) 25 mg tablet Take 1 tablet (25 mg total) by mouth daily Indications: high blood pressure. insulin glargine U-300 conc (TOUJEO MAX U-300 SOLOSTAR) 300 unit/mL (3 mL) insulin pen Inject 60 Unit under the skin Daily before evening meal Indications: type 2 diabetes mellitus. lisinopriL (PRINIVIL,ZESTRIL) 2.5 mg tablet Take 1 tablet (2.5 mg total) by mouth in the morning. Indications: high blood pressure. metFORMIN (GLUCOPHAGE) 500 mg tablet Take 1 tablet (500 mg total) by mouth in the morning and 1 tablet (500 mg total) in the evening. Take with meals. Indications: type 2 diabetes mellitus. metoprolol tartrate (LOPRESSOR) 25 mg tablet Take 1 tablet (25 mg total) by mouth in the morning and 1 tablet (25 mg total) before bedtime. Indications: high blood pressure. pantoprazole (PROTONIX) 40 mg EC tablet Take 1 tablet (40 mg total) by mouth in the morning and 1 tablet (40 mg total) before bedtime. pregabalin (LYRICA) 150 mg capsule Take 1 capsule (150 mg total) by mouth 3 (three) times a day. 90capsule 1 rosuvastatin (CRESTOR) 20 mg tablet Take 1 tablet (20 mg total) by mouth in the morning. HIGH CHOLESTEROL. STIOLTO RESPIMAT 2.5-2.5 mcg/actuation mist Take 2 puffs by mouth every morning. asthma tamsulosin (FLOMAX) 0.4 mg capsule Take 1 capsule (0.4 mg total) by mouth in the morning. Indications: enlarged prostate with urination problem. UNIFINE PENTIPS 31 gauge x 5/16 needle USE DIRECTED DAILY No current facility-administered medications on file prior to visit. Allergies Allergen Reactions Cephalexin Itching Poison Jada Extract Facial Swelling Eye swelling Social History Socioeconomic History Marital status: Spouse name: Not on file Number of children: Not on file Years of education: Not on file Highest education level: Not on file Occupational History Not on file Tobacco Use Smoking status: Every Day Current packs/day: 1.50 Average packs/day: 1.5 packs/day for 31.6 years (47.4 ttl pk-yrs) Types: Cigarettes Start date: 07/15/1992 Smokeless tobacco: Former Types: Chew Quit date: 07/15/2018 Vaping Use Vaping status: Never Used Substance and Sexual Activity Alcohol use: Not Currently Drug use: No Sexual activity: Defer Other Topics Concern Not on file Social History Narrative Lives with in a one story home with no steps. Tub/shower. Has a bench. Has a walker. Has two beagles. Social Drivers of Health Financial Resource Strain: Not on file Food Insecurity: No Food Insecurity (02/27/2024) Hunger Screening Food Insecurity - Worry: Never True Food Insecurity - Inability: Never True Transportation Needs: No Transportation Needs (01/21/2024) PRAPARE - Transportation Lack of Transportation (Medical): No Lack of Transportation (Non-Medical): No Physical Activity: Not on file Stress: Not on file Social Connections: Not on file Interpersonal Safety: Not At Risk (01/21/2024) Humiliation, Afraid, Rape, and Kick questionnaire Fear of Current or Ex-Partner: No Emotionally Abused: No Physically Abused: No Sexually Abused: No Housing Instability: Low Risk (01/21/2024) Housing Instability Housing Instability: No Exam BP 104/67 (BP Site: Right Arm, BP Postition: Sitting, BP CUFF SIZE: L (13-17 inches)) Pulse 75 Ht 182.9 cm (6') Wt 98.4 kg (217 lb) BMI 29.43 kg/m Mood/affect normal NC/AT Reasonably groomed and attired Neurological: Awake, alert, oriented x 3 CN intact Speech intact Cognition intact Motor No focal motor defecit Sensory intact Gait intact Station normal Coordination intact Reflexes Review of films: I personally reviewed and interpreted the patient's imaging during the clinic visit His hardware looks good He had new x-rays today A/P: 48 y/o male - s/p L5-S1 fusion He is tyring to behave as he heals I will give him a note to send him back to work 03/30/2024 I will see him in about 3-4 months with x-rays EUGENE PATRICIA MD documented in this encounterProMedica Health [id number] Instructions* Patient Instructions* Lovely Brand CMA - 02/27/2024 11:00 AM EST Patient seen by Dr Patricia. RTW note given. Xr ordered. 4 month f/u scheduled/ SS documented in this encounterWhite Hospital12-04-2024 NoteEntered by Shelly Cooper on February 26, 2024 14:58:21 EST From: Shelly Cooper To: [id number] Sent: 02/26/2024 14:58:21 EST Subject: Medication Management Approved Order:insulin lispro (HumaLOG KwikPen 100 units/mL injectable solution) INJECT TEN UNITS SUBCUTANEOUSLY (UNDER THE SKIN) WITH evening meal Qty: 15 mL Days Supply: 0 Refills: 5 Substitutions Allowed Route To Pharmacy - [id number] Signed by Shelly Cooper Cancelled: Discontinue:insulin lispro (HumaLOG KwikPen 100 units/mL injectable solution) Signed by Shelly Cooper From: [id number] To: Crystal Carmona MD Sent: February 26, 2024 1:53:26 PM DIABETES CLINICAL MANAGER Subject: Medication Management Due: February 27, 2024 1:53:26 PM DIABETES CLINICAL MANAGER Originally Prescribed Drug: Drug: insulin lispro (HumaLOG KwikPen 100 units/mL injectable solution), 10 unit(s) Subcutaneous Daily,Instr:with evening meal Quantity: 3 mL Days Supply: 0 Refills: 5 Substitutions Allowed Notes from Pharmacy: On Hold Pending Signature Preferred Alternative Drug: insulin lispro (HumaLOG KwikPen 100 units/mL injectable solution), INJECT TEN UNITS SUBCUTANEOUSLY (UNDER THE SKIN) WITH evening meal Quantity: 15 mL Days Supply: 0 Refills: 5 Substitutions [facility]owed [id number] Miscellaneous Notes* Telephone Encounter - Tila Matthews - 02/12/2024 2:27 PM EST Gustavo from [employer] leaves a message to ask for a return call. He would like to know the estimated return to work date for Zeeshan. Reference # [id number] * Telephone Encounter - Tila Sunil Matthews - 02/12/2024 2:27 PM EST [employer] was called. Informed that Zeeshan will be evaluated at his visit on 02/27/24 to determine if and when he will be able to return to work. documented in this encounterWhite Hospital11-20-2024 Telephone encounter Note* Telephone Encounter - Tila Matthews - 02/12/2024 2:27 PM EST Gustavo from [employer] leaves a message to ask for a return call. He would like to know the estimated return to work date for Zeeshan. Reference # [id number] [facility]11-20-2024 Telephone encounter Note* Telephone Encounter - Tila Sunil Matthews - 02/12/2024 2:27 PM EST [employer] was called. Informed that Zeeshan will be evaluated at his visit on 02/27/24 to determine if and when he will be able to return to work. [facility]11-12-2024 History of Present illness Narrative* Raeann Santana RN - 02/04/2024 11:30 AM EST [facility] [address] [address] Suture/Staple Removal/Wound Date: February 04, 2024 Patient: Zeeshan Llanos Physician: Dr. Patricia Procedure: STEALTH POSTERIOR INTERBODY FUSION LUMBAR SINGLE LEVEL/ L5-S1 Posterior Lumbar Interbody Fusion Past Surgical History: Procedure Laterality Date BLOCK MEDIAL BRANCH NERVE Bilateral 11/16/2016 Performed by Zeeshan Huerta MD at [facility] C5-7 Cervical Arthroplasty N/A 06/10/2023 Performed by Eugene Patricia MD at [facility] CORONARY ANGIOPLASTY WITH STENT PLACEMENT 2020 CORONARY ANGIOPLASTY WITH STENT PLACEMENT 02/24/2022 HERNIA REPAIR umbilical, late 30's early 40's INJECTION BLOCK EPIDURAL CAUDAL STEROID N/A 01/12/2022 Performed by Zeeshan Huerat MD at [facility] NERVE Bilat Cluneal Bilateral 08/30/2023 Performed by Zeeshan Huerta MD at [facility] BLOCK NERVE MEDIAL BRANCH Bilat L 4/5, 5/1 Bilateral 11/16/2022 Performed by Zeeshan Huerta MD at [facility] BLOCK NERVE MEDIAL BRANCH Bilat L 4/5,5/1 Bilateral 09/28/2022 Performed by Zeeshan Huerta MD at [facility] BLOCK SACROILIAC JOINT Left 08/03/2022 Performed by Zeeshan Huerta MD at [facility] MEDIAL BRANCH NERVE BLOCK Bilateral L 4/5, 5/1 Bilateral 01/09/2019 Performed by Zeeshan Huerta MD at [facility] NERVE BLOCK Right Sciatic Right 04/17/2019 Performed by Zeeshan Huerta MD at [facility] NERVE ROOT LEFT L5,1 Left 09/21/2016 Performed by Zeeshan Huerta MD at [facility] SI JOINT Bilateral SI Joint Bilateral 02/06/2019 Performed by Zeeshan Huerta MD at [facility] SI JOINT Bilateral SI Joint Bilateral 12/12/2018 Performed by Zeeshan Huerta MD at [facility] STEROID EPI 1 WITH SEDATION Right L 5, 1 NR Right 05/01/2019 Performed by Zeeshan Huerta MD at [facility] STEROID EPI 1 WITH SEDATION: L45 parmjit x 1 N/A 12/17/2016 Performed by Zeeshan Huerta MD at [facility] INSERTION TRIAL STIMULATOR SPINAL CORD N/A 03/01/2017 Performed by Zeeshan Huerta MD at [facility] Lumbar L4/5 ESIx1 N/A 11/23/2016 Performed by Zeeshan Huerta MD at [facility] LUMBAR SPINE SURGERY 10/29/2012 microdiscectomy, left side MICRO LUMBAR DISCECTOMY L5-S1 RIGHT Right 07/21/2019 Performed by Eugene Patricia MD at [facility] RADIO FREQUENCY ABLATION L2/3,3/4 Left 08/10/2016 Performed by Zeeshan Huerta MD at [facility] RADIO FREQUENCY ABLATION L2/3,3/4 Right 07/27/2016 Performed by Zeeshan Huerta MD at [facility] RADIOFREQUENCY ABLATION SPINAL Left L 4/5, 5/1 Left 03/01/2023 Performed by Zeeshan Huerta MD at [facility] RADIOFREQUENCY ABLATION SPINAL right L 4/5, 5/1 Right 03/29/2023 Performed by Zeeshan Huerta MD at [facility] STEALTH POSTERIOR INTERBODY FUSION LUMBAR SINGLE LEVEL/ L5-S1 Posterior Lumbar Interbody Fusion N/A1 Performed by Eugene Patricia MD at [facility] Date of Procedure: 01/20/2024 Reason for Appointment: routine wound check Post-Op Fever?: No Incisional Drainage?: No. Wound is dry. Patient's spouse notes some initial blisters along incisionwith seepage which has since resolved. Skin Edges Approximated?: Yes Unusual Redness?: residual rash/skin irritation along and around incision line Unusual Swelling?: No Sutures/Gregg Removed?: N/A - wound closed with Dermabond and steri strips Steri Strips Applied?: No Use of Pain Medication: Oxycodone 3-4 tabs per day as needed. Tylenol as needed. Patient notes he is has been weaning down the Oxycodone and plans to transition back to his [place] per his PCP when he is off the Oxycodone. Effective for Pain Relief?: Yes Comments: Patient accompanied by his . Zeeshan notes overall doing well, leg pain is significantly better since surgery. He states he is hardly using his stimulator now. Some mild paresthesias inhis feet. Zeeshan states he has psoriasis and breaks out from adhesive or whenever he gets a cut orscrape. Patient denies any fevers or chills. His spouse states he initially had some small fluid filled blisters on and around Zeeshan's wound with some seepage. It has since dried out but Zeeshan states it is still itchy. He is inquiring if he is able to apply some of the prescription steroid cream he has. Current Concerns with Incision or Symptoms?: Continue to monitor resolving rash Patient educated on how to properly request future pain medication refills as well as the need to always read the directions on their medication bottle because the direction on how to take the medication may change with every refill. Neurosurgery will not provide early refills for prescriptions that are lost, stolen or not taken as prescribed. It is best to reposition often to reduce the amount of pressure on the incision. Wound healing well with a resolving skin reaction/rash. No obvious signs of infection at this time.Will update Dr. Patricia and clarify the use of a topical steroid cream. Patient/spouse instructedto leave incision open to air, shower normal. Call office with any signs/symptoms of infection, worsening appearance of wound or any questions/concerns. Follow up as scheduled with Dr. Baird. Will contact patient when we receive further direction from Dr. Patricia. Addendum @ 1210: Per Dr. Patricia - Ok to apply steroid cream on the skin around the wound but notdirectly on the incision line. Patient updated on Dr. Patricia's response. He denies any additional questions. [facility] Miscellaneous Notes* Telephone Encounter - Tila Matthews - 01/27/2024 3:02 PM EST Zeeshan calls to say he is having a reaction to the adhesive on his dressing. He reports, the skin under the adhesive is red and welted. He was advised that he may remove the dressing and apply hydrocortisone to the area surrounding the incision line. He was instructed to cover the incision with adressing while showering and then remove. He was advised to keep the area clean,dry and open to airas long as there is no drainage. He was informed to cover the site with a non adherent dressing andminimal paper tape if the site was draining. He expressed understanding. documented in this encounterWhite [facility]11-04-[facility]24 Telephone encounter Note* Telephone Encounter - Tila Matthews - 01/27/2024 3:02 PM EST Zeeshan calls to say he is having a reaction to the adhesive on his dressing. He reports, the skin under the adhesive is red and welted. He was advised that he may remove the dressing and apply hydrocortisone to the area surrounding the incision line. He was instructed to cover the incision with adressing while showering and then remove. He was advised to keep the area clean,dry and open to airas long as there is no drainage. He was informed to cover the site with a non adherent dressing andminimal paper tape if the site was draining. He expressed understanding. [facility] Hospital course Narrative* ADAM Kapoor - 01/22/2024 12:06 PM EDT Images from the original note were not included. [facility] [address] [place] [address], [place] [address] * NEUROSURGERY DISCHARGE SUMMARY Patient: Zeeshan Llanos Date of : 1975 Acct: [id number] Primary Care Physician: CRYSTAL CARMONA MD Admit date: 01/20/2024 01/20/2024 11:13 AM Discharge date: 01/22/24 Discharge Diagnoses: Spinal stenosis of lumbar region with neurogenic claudication Principal Problem: Spinal stenosis of lumbar region with neurogenic claudication Discharge Medications: Medication List START taking these medications Instructions Last Dose Given Next Dose Due oxyCODONE 5 mg immediate release tablet Commonly known as: ROXICODONE Take 1-2 tablets (5-10 mg total) by mouth every 6 (six) hours as needed (for pain 1-5/10-) for up to 7 days. Max Daily Amount: 40 mg CHANGE how you take these medications Instructions Last Dose Given Next Dose Due aspirin 81 mg Start taking on: January 28, 2024 What changed: These instructions start on January 28, 2024. If you are unsure what to do until then, ask your doctor or other care provider. Take 1 tablet (81 mg total) by mouth in the morning. Indications: blood clot prevention following percutaneous coronary intervention. Ok to resume 06/18/23. CONTINUE taking these medications Instructions Last Dose Given Next Dose Due carisoprodoL 350 mg tablet Commonly known as: SOMA Take 1 tablet (350 mg total) by mouth in the morning and 1 tablet (350 mg total) before bedtime. Indications: muscle spasm. dapagliflozin propanediol 10 mg tablet Commonly known as: FARXIGA Take 1 tablet (10 mg total) by mouth in the morning. Indications: type 2 diabetes mellitus. HOLD 3 DAYS PRIOR TO SURGERY. finasteride 5 mg tablet Commonly known as: PROSCAR Take 1 tablet (5 mg total) by mouth in the morning. Indications: enlarged prostate with urination problem. hydroCHLOROthiazide 25 mg tablet Commonly known as: HYDRODIURIL Take 1 tablet (25 mg total) by mouth daily Indications: high blood pressure. lisinopriL 2.5 mg tablet Commonly known as: PRINIVIL,ZESTRIL Take 1 tablet (2.5 mg total) by mouth in the morning. Indications: high blood pressure. metFORMIN 500 mg tablet Commonly known as: GLUCOPHAGE Take 1 tablet (500 mg total) by mouth in the morning and 1 tablet (500 mg total) in the evening. Take with meals. Indications: type 2 diabetes mellitus. metoprolol tartrate 25 mg tablet Commonly known as: LOPRESSOR Take 1 tablet (25 mg total) by mouth in the morning and 1 tablet (25 mg total) before bedtime. Indications: high blood pressure. pantoprazole 40 mg EC tablet Commonly known as: PROTONIX Take 1 tablet (40 mg total) by mouth in the morning and 1 tablet (40 mg total) before bedtime. pregabalin 150 mg capsule Commonly known as: LYRICA Take 1 capsule (150 mg total) by mouth 3 (three) times a day. rosuvastatin 20 mg tablet Commonly known as: CRESTOR Take 1 tablet (20 mg total) by mouth in the morning. HIGH CHOLESTEROL. STIOLTO RESPIMAT 2.5-2.5 mcg/actuation mist Generic drug: tiotropium-olodateroL Take 2 puffs by mouth every morning. asthma tamsulosin 0.4 mg capsule Commonly known as: FLOMAX Take 1 capsule (0.4 mg total) by mouth in the morning. Indications: enlarged prostate with urination problem. TOUJEO MAX U-300 SOLOSTAR 300 unit/mL (3 mL) insulin pen Generic drug: insulin glargine U-300 conc Inject 60 Unit under the skin Daily before evening meal Indications: type 2 diabetes mellitus. UNIFINE PENTIPS 31 gauge x 5/16 needle Generic drug: pen needle, diabetic USE DIRECTED DAILY VENTOLIN HFA 90 mcg/actuation inhaler Generic drug: albuterol Inhale 2 puffs every 4 (four) hours as needed for wheezing or shortness of breath Indications: asthma attack. Uses most days STOP taking these medications HYDROcodone-acetaminophen 5-325 mg per tablet Commonly known as: NORCO meloxicam 15 mg tablet Commonly known as: MOBIC Where to Get Your Medications These medications were sent to [id number] - [place], [place] - [address] [facility] [address] [facility] [id number] oxyCODONE 5 mg immediate release tablet Information about where to get these medications is not yet available Ask your nurse or doctor about these medications aspirin 81 mg Diet: Adult diet Regular Texture Activity: oob as tolerated Follow-up: Follow up as scheduled with Dr. Patricia Procedures: L5 revision laminectomy with bilateral partial medial and lateral facetectomy and foraminotomy for decompression Bilateral posterior interbody fusion with Titanium cages (Adaptix) 10 mm x 24 mm - packed with local autograft bone and allograft bone (pliafix) Posterior non-segmental instrumentation at L5 and S1 - Medtronic Solara pedicle screws (6.5 mm diameter) Use of O-arm and Stealth image guidance for image guided spinal fusion procedure Physical Exam: Hospital Course: clinical course has been stable, Pt seen and evaluated on morning rounds. Awake, alert and oriented with clear appropriate speech. Pre-op symptoms are improved after surgery. Surgical pain is well controlled with oral pain medications. Pt is eating, drinking and voiding without difficulty with + flatus. Ambulating in halls with steady gait. Surgical incision well approximated and intact with dermabond and steri stripes, no incisional concerns. Criteria for discharge has been met. Verbal discharge instructions reviewed, all questions have been answered. Pt verbalized understanding. OARRS report has been reviewed and appropriate. Written discharge instructions and a prescription for roxicodone for pain control will be provide d at the time of discharge. Pt will be discharged to home later today with no needs. Follow up appointment is in place and appointment details have been reviewed. Disposition: home Condition: stable ADAM Kapoor The patient has been started on an opiate pain medication for a condition that is expected to last longer than seven days. Alternatives to opiate medication have been considered and discussed with the patient and it has been agreed upon that opiates are needed in this case. This initial prescription for this problem has been written for 7 days. The reasons for opiate painmedication therapy in this case is (acute postoperative pain). The risks versus benefits of opiate therapy, and extended opiate therapy have been discussed with the patient and have been deemed acceptable and clinically appropriate. ADAM Ponce Neurosurgery [facility] Patient Touch 01/22/24 12:06 PM ADAM Kapoor 01/22/24 [id number] documented in this encounterWhite Hospital10-30-2024 Hospital Discharge instructions* Discharge Instructions* ADAM Kapoor - 01/22/2024 12:06 PM EDT Neurosurgery Discharge Instructions Special Medication Instructions: No Aspirin, Anti-Platelet agents or other blood thinning medications for 7 days from the date of your surgery No anti-inflammatories for 12 weeks from date of surgery. No alcohol. Continue stool softeners while taking narcotic pain medication. Add laxatives as needed Activities: No driving for 7 days or while taking pain medication May shower, no tub baths or swimming for 14 days No lifting greater than 1-2 lbs for 14 days Avoid bending, twisting or any strenuous activity Take short walks every 2-3 hours during the day with brace as your pain permits Stairs as tolerated, take your time Notify Doctor if you notice: Increased pain Redness, swelling, bleeding or drainage from incision Temperature 101 degrees or above Numbness, tingling or decreased strength different than before your surgery or new since your surgery. In case of emergency, call 911 immediately! If 911 is not available, call your local emergency medical system for help. Wound Care: Change dressing daily and as needed until sutures/gregg are removed. Do not apply creams or ointments to your incision Shower daily with old dressing in place to protect incision Change dressing after your shower Other Instructions: Call [facility] with any questions, . documented in this encounterMem[facility] HospitalLambda [facility] CenterBwfagl[facility] Plan of care note * Plan of Care - Edy Shook RN - 01/22/2024 11:40 AM EDT Problem: Pain Goal: Patient goal is pain score less than 4, able to rest, and participant in treatment plan as appropriate Description: INTERVENTIONS: 1. Encourage patient or legal small business representative to report early pain and ask for pain medicine when needed 2. Assess pain using appropriate pain scale and include the scale used when documenting 3. Administer analgesics based on type and severity of pain and evaluate response within appropriate time frame 4. Implement non-pharmacological measures as appropriate and evaluate response 5. Consider cultural and social influences on pain and pain management 6. Notify LIP if interventions ineffective or patient reports new pain 7. Monitor vital signs including pulse ox, end-tidal CO2 based on pain intervention 8. Reassess pain per policy 9. Teach patient or legal small business representative interventions for comforting Outcome: Progressing Note: Evaluation of progress towards goal: Pt able to communicate pain and discomfort. Pt reports surgical pain 5/10. Interventions performed when needed and prn pain medication for acute pain. Problem: Safety Goal: Patient will be injury free during hospitalization Description: INTERVENTIONS: 1. Assess patient's risk for falls and implement fall prevention plan of care per policy 2. Provide and maintain a safe environment 3. Proper use of double Identifiers 4. Medication administration using the 5 rights 5. Hand hygiene 6. Specimens are labeled at the bedside 7. Instruct patient/ patient small business representative about use of safety devices 8. Include patient/ patient small business representative in decisions related to safety Outcome: Progressing Note: Evaluation of progress towards goal: Pt free of new injuries. Environment clear of clutter, call light in reach. Pt will use call light when in need of assistance. Problem: Infection Goal: Absence of infection during hospitalization Description: Interventions: 1. Assess and monitor for signs and symptoms of infection 2. Monitor lab/diagnostic results 3. Monitor all insertion sites i.e., indwelling lines, tubes and drains 4. Monitor endotracheal (as able) and nasal secretions for changes in amount and color 5. Administer medications as ordered 6. Instruct and encourage patient and family to use good hand hygiene technique 7. Identify and instruct patient/patient small business representative in use of appropriate isolation precautionsfor identified infection/symptoms 8. Provide and discuss with patient/patient small business representative on educational MDRO sheet 9. Encourage and monitor nutritional status daily and consult director of accounting if indicated 10. Implement neutropenic guidelines as needed 11. Review exposure to history of communicable disease and recent travel history on admission 12. Encourage annual influenza vaccine 13. Encourage pneumonia vaccine Outcome: Progressing Note: Evaluation of progress towards goal: Pt remain free of signs and symptoms of infection. Standard precautions performed. Problem: Knowledge Deficit Goal: Patient/patient small business representative demonstrates understanding of disease process, treatment plan,medications, and discharge instructions Description: INTERVENTIONS 1. Complete learning assessment and assess knowledge base 2. Provide teaching at level of understanding 3. Provide teaching via preferred learning method(s) Outcome: Progressing Note: Evaluation of progress towards goal: Patient is ready to learn. Accepting education and asking appropriate questions. Problem: Discharge Planning Goal: Discharge to post-acute care, other facility, or home with appropriate resources Description: Patient's goal is: INTERVENTIONS 1. Conduct assessment to determine patient/family and health care team treatment goals, and need for post-acute services based on payer coverage, community resources, and patient preferences, and barriers to discharge 2. Coordinate with Social work, Care Navigation, and Utilization Review to arrange appropriate level of services according to patient's needs based on patient preference and payer coverage in collaboration with the physician and health care team 3. Address psychosocial, clinical, and financial barriers to discharge as identified in assessment in conjunction with the patient/family and health care team 4. Consult appropriate ancillary services (i.e.. PT/OT/ST, etc) as needed 5. Communicate with and update the patient/family, physician, and health care team regarding progress on the discharge plan 6. Identify discharge learning needs (meds, wound care, etc). 7. Arrange for needed discharge transportation as appropriate Outcome: Progressing Note: Evaluation of progress towards goal: Patient verbalizes acceptance and understanding of discharge planning. Will answer questions as needed. Problem: Potential for Compromised Skin Integrity Goal: Skin integrity is maintained or improved Description: Patient's goal is: INTERVENTIONS 1. Perform initial skin assessment on admission and as needed 2. Turn patient every 2 hours and PRN 3. Relieve pressure to bony prominences 4. Avoid shearing 5. Keep skin clean and dry 6. Alternate a full bath with partial baths for elderly 7. Apply lotion/moisturizer on skin 8. Monitor patient's hygiene practices 9. Float heels 10. Collaborate with interdisciplinary team and initiate plans and interventions as needed Outcome: Progressing Note: Evaluation of progress towards goal: Patient skin integrity to remain intact. Patient understands measures to take to protect and heal tissue. Will continue to monitor impaired tissue integrity Problem: Low Risk Fall Score Description: [place] Fall Score of 0 - 24 or indicated by [facility] Assessment Goal: Patient should be free from fall Description: Interventions: 1. [place] to environment 2. Hourly rounds addressing the 4 P's (Pain, Positioning, Possessions, Potty) 3. Clear area of hazards (spills, clutter, electrical cords, unnecessary equipment) 4. Place equipment (bed & TV controls, call light, phone, urinal) within reach 5. Encourage patient to wear glasses and hearing aides as appropriate 6. Maintain bed in lowest position 7. Lock wheels on bed/wheelchair 8. Provide adequate lighting, including night light 9. Assess need for additional bedding, food/fluids, pain med's prior to sleep/routinely 10. Provide gripper slippers or personal non-skid footwear 11. Teach patient and patient small business representative to maintain environment for safety and engage in all aspects of fall prevention program Outcome: Progressing Note: Evaluation of progress towards goal: Pt remains free of falls and continue to use safety measures when ambulating. patient's environment free of hazards and factors known to increase fall risks. Problem: Activity Intolerance/Impaired Mobility Goal: Mobility/activity is maintained at optimum level for patient Description: Patient's goal is: INTERVENTIONS 1. Assess and monitor patient barriers to mobility and need for assistive/adaptive devices 2. Assess patient's emotional response to limitations 3. Collaborate with interdisciplinary teams and initiate plans and interventions as ordered 4. Encourage independent activity per tolerance 5. Maintain proper body alignment 6. Perform active/passive ROM as tolerated/ordered 7. Coordinate activities to conserve energy 8. Reposition patient 9. Ensure adequate rest/sleep time Outcome: Progressing Note: Evaluation of progress towards goal: pt will demonstrate activity tolerance by assessing the patient's level of assistance while ambulating and assessing for chest pain or SOB with activity. Problem: Neurological Deficit Goal: Neurological status is stable or improving Description: Patient's goal is: INTERVENTIONS 1. Complete Neurological assessment as indicated/ordered 2. Initiate measures to prevent increased intracranial pressure 3. Monitor and assess patient's level of consciousness, motor function, sensory function, and levelof assistance needed for ADLs 4. Monitor and report changes from baseline 5. Maintain blood pressure and fluid volume within ordered parameters to optimize cerebral perfusion and minimize risk of hemorrhage 6. Monitor labs and diagnostic tests 7. Administer anti-seizure medications as ordered 8. Maintain airway, patient safety and administer oxygen as ordered 9. Monitor patient for seizure activity, document and report duration and description of seizure toLIP 10. If seizure occurs, turn patient to side and suction secretions as needed 11. Reorient patient post seizure 12. Seizure pads on all 4 side rails 13. Instruct patient/family to notify RN of any seizure activity 14. Instruct patient/family to call for assistance with activity based on assessment 15. Utilize bleeding precautions if thrombolytic given Outcome: Progressing Note: Evaluation of progress towards goal: Patient will maintain mobility and increased neurological status with improvement in strength and sensory stability by assessing patient's cognitive deficits and behaviors with frequent Q4 neuro checks and assisting patient with needs. [facility] [employer] [place] [id number] Miscellaneous Notes* Plan of Care - Edy Shook RN - 01/22/2024 11:40 AM EDT Problem: Pain Goal: Patient goal is pain score less than 4, able to rest, and participant in treatment plan as appropriate Description: INTERVENTIONS: 1. Encourage patient or legal small business representative to report early pain and ask for pain medicine when needed 2. Assess pain using appropriate pain scale and include the scale used when documenting 3. Administer analgesics based on type and severity of pain and evaluate response within appropriate time frame 4. Implement non-pharmacological measures as appropriate and evaluate response 5. Consider cultural and social influences on pain and pain management 6. Notify LIP if interventions ineffective or patient reports new pain 7. Monitor vital signs including pulse ox, end-tidal CO2 based on pain intervention 8. Reassess pain per policy 9. Teach patient or legal small business representative interventions for comforting Outcome: Progressing Note: Evaluation of progress towards goal: Pt able to communicate pain and discomfort. Pt reports surgical pain 5/10. Interventions performed when needed and prn pain medication for acute pain. Problem: Safety Goal: Patient will be injury free during hospitalization Description: INTERVENTIONS: 1. Assess patient's risk for falls and implement fall prevention plan of care per policy 2. Provide and maintain a safe environment 3. Proper use of double Identifiers 4. Medication administration using the 5 rights 5. Hand hygiene 6. Specimens are labeled at the bedside 7. Instruct patient/ patient small business representative about use of safety devices 8. Include patient/ patient small business representative in decisions related to safety Outcome: Progressing Note: Evaluation of progress towards goal: Pt free of new injuries. Environment clear of clutter, call light in reach. Pt will use call light when in need of assistance. Problem: Infection Goal: Absence of infection during hospitalization Description: Interventions: 1. Assess and monitor for signs and symptoms of infection 2. Monitor lab/diagnostic results 3. Monitor all insertion sites i.e., indwelling lines, tubes and drains 4. Monitor endotracheal (as able) and nasal secretions for changes in amount and color 5. Administer medications as ordered 6. Instruct and encourage patient and family to use good hand hygiene technique 7. Identify and instruct patient/patient small business representative in use of appropriate isolation precautionsfor identified infection/symptoms 8. Provide and discuss with patient/patient small business representative on educational MDRO sheet 9. Encourage and monitor nutritional status daily and consult director of accounting if indicated 10. Implement neutropenic guidelines as needed 11. Review exposure to history of communicable disease and recent travel history on admission 12. Encourage annual influenza vaccine 13. Encourage pneumonia vaccine Outcome: Progressing Note: Evaluation of progress towards goal: Pt remain free of signs and symptoms of infection. Standard precautions performed. Problem: Knowledge Deficit Goal: Patient/patient small business representative demonstrates understanding of disease process, treatment plan,medications, and discharge instructions Description: INTERVENTIONS 1. Complete learning assessment and assess knowledge base 2. Provide teaching at level of understanding 3. Provide teaching via preferred learning method(s) Outcome: Progressing Note: Evaluation of progress towards goal: Patient is ready to learn. Accepting education and asking appropriate questions. Problem: Discharge Planning Goal: Discharge to post-acute care, other facility, or home with appropriate resources Description: Patient's goal is: INTERVENTIONS 1. Conduct assessment to determine patient/family and health care team treatment goals, and need for post-acute services based on payer coverage, community resources, and patient preferences, and barriers to discharge 2. Coordinate with Social work, Care Navigation, and Utilization Review to arrange appropriate level of services according to patient's needs based on patient preference and payer coverage in collaboration with the physician and health care team 3. Address psychosocial, clinical, and financial barriers to discharge as identified in assessment in conjunction with the patient/family and health care team 4. Consult appropriate ancillary services (i.e.. PT/OT/ST, etc) as needed 5. Communicate with and update the patient/family, physician, and health care team regarding progress on the discharge plan 6. Identify discharge learning needs (meds, wound care, etc). 7. Arrange for needed discharge transportation as appropriate Outcome: Progressing Note: Evaluation of progress towards goal: Patient verbalizes acceptance and understanding of discharge planning. Will answer questions as needed. Problem: Potential for Compromised Skin Integrity Goal: Skin integrity is maintained or improved Description: Patient's goal is: INTERVENTIONS 1. Perform initial skin assessment on admission and as needed 2. Turn patient every 2 hours and PRN 3. Relieve pressure to bony prominences 4. Avoid shearing 5. Keep skin clean and dry 6. Alternate a full bath with partial baths for elderly 7. Apply lotion/moisturizer on skin 8. Monitor patient's hygiene practices 9. Float heels 10. Collaborate with interdisciplinary team and initiate plans and interventions as needed Outcome: Progressing Note: Evaluation of progress towards goal: Patient skin integrity to remain intact. Patient understands measures to take to protect and heal tissue. Will continue to monitor impaired tissue integrity Problem: Low Risk Fall Score Description: Mcelroy Fall Score of 0 - 24 or indicated by [facility] Assessment Goal: Patient should be free from fall Description: Interventions: 1. [place] to environment 2. Hourly rounds addressing the 4 P's (Pain, Positioning, Possessions, Potty) 3. Clear area of hazards (spills, clutter, electrical cords, unnecessary equipment) 4. Place equipment (bed & TV controls, call light, phone, urinal) within reach 5. Encourage patient to wear glasses and hearing aides as appropriate 6. Maintain bed in lowest position 7. Lock wheels on bed/wheelchair 8. Provide adequate lighting, including night light 9. Assess need for additional bedding, food/fluids, pain med's prior to sleep/routinely 10. Provide gripper slippers or personal non-skid footwear 11. Teach patient and patient small business representative to maintain environment for safety and engage in all aspects of fall prevention program Outcome: Progressing Note: Evaluation of progress towards goal: Pt remains free of falls and continue to use safety measures when ambulating. patient's environment free of hazards and factors known to increase fall risks. Problem: Activity Intolerance/Impaired Mobility Goal: Mobility/activity is maintained at optimum level for patient Description: Patient's goal is: INTERVENTIONS 1. Assess and monitor patient barriers to mobility and need for assistive/adaptive devices 2. Assess patient's emotional response to limitations 3. Collaborate with interdisciplinary teams and initiate plans and interventions as ordered 4. Encourage independent activity per tolerance 5. Maintain proper body alignment 6. Perform active/passive ROM as tolerated/ordered 7. Coordinate activities to conserve energy 8. Reposition patient 9. Ensure adequate rest/sleep time Outcome: Progressing Note: Evaluation of progress towards goal: pt will demonstrate activity tolerance by assessing the patient's level of assistance while ambulating and assessing for chest pain or SOB with activity. Problem: Neurological Deficit Goal: Neurological status is stable or improving Description: Patient's goal is: INTERVENTIONS 1. Complete Neurological assessment as indicated/ordered 2. Initiate measures to prevent increased intracranial pressure 3. Monitor and assess patient's level of consciousness, motor function, sensory function, and levelof assistance needed for ADLs 4. Monitor and report changes from baseline 5. Maintain blood pressure and fluid volume within ordered parameters to optimize cerebral perfusion and minimize risk of hemorrhage 6. Monitor labs and diagnostic tests 7. Administer anti-seizure medications as ordered 8. Maintain airway, patient safety and administer oxygen as ordered 9. Monitor patient for seizure activity, document and report duration and description of seizure toLIP 10. If seizure occurs, turn patient to side and suction secretions as needed 11. Reorient patient post seizure 12. Seizure pads on all 4 side rails 13. Instruct patient/family to notify RN of any seizure activity 14. Instruct patient/family to call for assistance with activity based on assessment 15. Utilize bleeding precautions if thrombolytic given Outcome: Progressing Note: Evaluation of progress towards goal: Patient will maintain mobility and increased neurological status with improvement in strength and sensory stability by assessing patient's cognitive deficits and behaviors with frequent Q4 neuro checks and assisting patient with needs. * Discharge Planning Note - Dee Hernandez RN - 01/22/2024 10:05 AM EDT DISCHARGE PLANNING NOTE Per RN during discharge transition rounds, barriers to discharge are: hemovac drainage, . Discharge Plan: Home with self care and spouse support. Planning discharge tomorrow, possible discharge later today if drainage lessens. Pump Tender will continue to follow for any discharge needs. - Dee Hernandez RN 01/22/24 10:06 AM * Plan of Care - Naya Fishman RN - 01/21/2024 10:04 PM EDT Problem: Pain Goal: Patient goal is pain score less than 4, able to rest, and participant in treatment plan as appropriate Description: INTERVENTIONS: 1. Encourage patient or legal small business representative to report early pain and ask for pain medicine when needed 2. Assess pain using appropriate pain scale and include the scale used when documenting 3. Administer analgesics based on type and severity of pain and evaluate response within appropriate time frame 4. Implement non-pharmacological measures as appropriate and evaluate response 5. Consider cultural and social influences on pain and pain management 6. Notify LIP if interventions ineffective or patient reports new pain 7. Monitor vital signs including pulse ox, end-tidal CO2 based on pain intervention 8. Reassess pain per policy 9. Teach patient or legal small business representative interventions for comforting Outcome: Progressing Note: Evaluation of progress towards goal: Patient rating pain 6/10. PRN medication given and pain improved. Continue to reassess per policy. Problem: Safety Goal: Patient will be injury free during hospitalization Description: INTERVENTIONS: 1. Assess patient's risk for falls and implement fall prevention plan of care per policy 2. Provide and maintain a safe environment 3. Proper use of double Identifiers 4. Medication administration using the 5 rights 5. Hand hygiene 6. Specimens are labeled at the bedside 7. Instruct patient/ patient small business representative about use of safety devices 8. Include patient/ patient small business representative in decisions related to safety Outcome: Progressing Note: Evaluation of progress towards goal: Patient remains injury and fall free. Continue to monitor. Problem: Infection Goal: Absence of infection during hospitalization Description: Interventions: 1. Assess and monitor for signs and symptoms of infection 2. Monitor lab/diagnostic results 3. Monitor all insertion sites i.e., indwelling lines, tubes and drains 4. Monitor endotracheal (as able) and nasal secretions for changes in amount and color 5. Administer medications as ordered 6. Instruct and encourage patient and family to use good hand hygiene technique 7. Identify and instruct patient/patient small business representative in use of appropriate isolation precautionsfor identified infection/symptoms 8. Provide and discuss with patient/patient small business representative on educational MDRO sheet 9. Encourage and monitor nutritional status daily and consult director of accounting if indicated 10. Implement neutropenic guidelines as needed 11. Review exposure to history of communicable disease and recent travel history on admission 12. Encourage annual influenza vaccine 13. Encourage pneumonia vaccine Outcome: Progressing Note: Evaluation of progress towards goal: Patient remains free of infection. Continue to monitor. Problem: Knowledge Deficit Goal: Patient/patient small business representative demonstrates understanding of disease process, treatment plan,medications, and discharge instructions Description: INTERVENTIONS 1. Complete learning assessment and assess knowledge base 2. Provide teaching at level of understanding 3. Provide teaching via preferred learning method(s) Outcome: Progressing Note: Evaluation of progress towards goal: Patient verbalizes understanding of disease process, treatment plan, medications, and discharge plan. Continue to update with any changes. Problem: Discharge Planning Goal: Discharge to post-acute care, other facility, or home with appropriate resources Description: Patient's goal is: INTERVENTIONS 1. Conduct assessment to determine patient/family and health care team treatment goals, and need for post-acute services based on payer coverage, community resources, and patient preferences, and barriers to discharge 2. Coordinate with Social work, Care Navigation, and Utilization Review to arrange appropriate level of services according to patient's needs based on patient preference and payer coverage in collaboration with the physician and health care team 3. Address psychosocial, clinical, and financial barriers to discharge as identified in assessment in conjunction with the patient/family and health care team 4. Consult appropriate ancillary services (i.e.. PT/OT/ST, etc) as needed 5. Communicate with and update the patient/family, physician, and health care team regarding progress on the discharge plan 6. Identify discharge learning needs (meds, wound care, etc). 7. Arrange for needed discharge transportation as appropriate Outcome: Progressing Note: Evaluation of progress towards goal: Patient verbalizes discharge plan. Will continue to update with any changes. Problem: Potential for Compromised Skin Integrity Goal: Skin integrity is maintained or improved Description: Patient's goal is: INTERVENTIONS 1. Perform initial skin assessment on admission and as needed 2. Turn patient every 2 hours and PRN 3. Relieve pressure to bony prominences 4. Avoid shearing 5. Keep skin clean and dry 6. Alternate a full bath with partial baths for elderly 7. Apply lotion/moisturizer on skin 8. Monitor patient's hygiene practices 9. Float heels 10. Collaborate with interdisciplinary team and initiate plans and interventions as needed Outcome: Progressing Note: Evaluation of progress towards goal: Patient is post-op back surgery. Posterior back incisionwith Hemovac drain. Problem: Respiratory - Adult Goal: Achieves optimal ventilation and oxygenation Description: Patient's goal is: INTERVENTIONS: 1. Assess for changes in respiratory status 2. Assess for changes in mentation and behavior 3. Position to facilitate oxygenation and minimize respiratory effort 4. Oxygen supplementation based on oxygen saturation or ABGs as ordered 5. Consult smoking cessation as indicated 6. Encourage broncho-pulmonary hygiene including cough, deep breathe, Incentive Spirometry, keep HOB elevated as tolerated, and encourage ambulation, as ordered 7. Assess the need for suctioning and obtain order to maintain clear airway 8. Assess and instruct patient to report SOB or any respiratory difficulty 9. Assess the need for Respiratory Therapy support if not already ordered 10. Initiate emergency measures for respiratory failure Outcome: Progressing Note: Evaluation of progress towards goal: Patient removed from oxygen during the day. Oxygen levels staying above 92%. Problem: Low Risk Fall Score Description: Mcelroy Fall Score of 0 - 24 or indicated by [facility] Assessment Goal: Patient should be free from fall Description: Interventions: 1. [place] to environment 2. Hourly rounds addressing the 4 P's (Pain, Positioning, Possessions, Potty) 3. Clear area of hazards (spills, clutter, electrical cords, unnecessary equipment) 4. Place equipment (bed & TV controls, call light, phone, urinal) within reach 5. Encourage patient to wear glasses and hearing aides as appropriate 6. Maintain bed in lowest position 7. Lock wheels on bed/wheelchair 8. Provide adequate lighting, including night light 9. Assess need for additional bedding, food/fluids, pain med's prior to sleep/routinely 10. Provide gripper slippers or personal non-skid footwear 11. Teach patient and patient small business representative to maintain environment for safety and engage in all aspects of fall prevention program Outcome: Progressing Note: Evaluation of progress towards goal: Patient remains injury and fall free. Continue to monitor. Problem: Activity Intolerance/Impaired Mobility Goal: Mobility/activity is maintained at optimum level for patient Description: Patient's goal is: INTERVENTIONS 1. Assess and monitor patient barriers to mobility and need for assistive/adaptive devices 2. Assess patient's emotional response to limitations 3. Collaborate with interdisciplinary teams and initiate plans and interventions as ordered 4. Encourage independent activity per tolerance 5. Maintain proper body alignment 6. Perform active/passive ROM as tolerated/ordered 7. Coordinate activities to conserve energy 8. Reposition patient 9. Ensure adequate rest/sleep time Outcome: Progressing Note: Evaluation of progress towards goal: Patient is up and walking around without assistive devices. Patient is also independent with hygiene needs. Problem: Neurological Deficit Goal: Neurological status is stable or improving Description: Patient's goal is: INTERVENTIONS 1. Complete Neurological assessment as indicated/ordered 2. Initiate measures to prevent increased intracranial pressure 3. Monitor and assess patient's level of consciousness, motor function, sensory function, and levelof assistance needed for ADLs 4. Monitor and report changes from baseline 5. Maintain blood pressure and fluid volume within ordered parameters to optimize cerebral perfusion and minimize risk of hemorrhage 6. Monitor labs and diagnostic tests 7. Administer anti-seizure medications as ordered 8. Maintain airway, patient safety and administer oxygen as ordered 9. Monitor patient for seizure activity, document and report duration and description of seizure toLIP 10. If seizure occurs, turn patient to side and suction secretions as needed 11. Reorient patient post seizure 12. Seizure pads on all 4 side rails 13. Instruct patient/family to notify RN of any seizure activity 14. Instruct patient/family to call for assistance with activity based on assessment 15. Utilize bleeding precautions if thrombolytic given Outcome: Progressing Note: Evaluation of progress towards goal: Neuro assessments q4h and with any signs of changes frombaseline per policy. Patient is A&O x4. * Discharge Planning Note - Dee Hernandez RN - 01/21/2024 11:48 AM EDT Images from the original note were not included. DISCHARGE PLANNING NOTE Services Requested: Services Requested Discharge Disposition: Home with self care Does the patient need discharge transportation arranged?: No Visiting Physician/Provider: Crystal Carmona MD Initial DC Assessment Completed: Yes Patient Goals: Patient/Caregiver Goals Patient/Caregiver Goals: Home No Needs Goals: Goals Return home (pt-stated) Evaluation of progress towards goal: Plan to return home with spouse. Patient admitted for: lumbar stenosis. L5 laminectomy, L5-S1 fusion, hardware Patient discussed in discharge transition rounds: Per RN report : hemovac drain, PT /OT recommendedHome with CG support. CN spoke with patient and spouse , Katy, at bedside, introduced self and explained role. Patient is alert and oriented. Patient lives with spouse in a one story home with no steps to enter, bed/bathrooms on first floor with no flights of stairs. Patient stated they were independent with ADL's and patient was able to drive prior to admission. Patient states that they currently shower chair, 4 wheeled walker, sock aide, admissions rn DME. Patient endorses no issue financially with being able to obtainmedications or food. Patient states that they have working water, gas and electric. Patient's preferred pharmacy is [facility] in [place], [place]. Per patient self report: Drug use: deny ETOH use: deny Smoking: yes, 2 packs daily. Planning to reduce smoking and eventually quit. PCP added to follow up provider list to receive summary of care at discharge. Based on readmission risk assessment, patient has no risk score for readmission due to Observation status. The following arrangements have been made to help prevent readmission. D/C Plan: Home with self care and spouse support. [facility] tasked to arrangefollow up PCP appointment. Pump Tender will continue to follow for any discharge needs. - KOLE Amaya 01/21/24 11:50 AM * Plan of Care - Asim Wilder RN - 01/21/2024 11:42 AM EDT Problem: Pain Goal: Patient goal is pain score less than 4, able to rest, and participant in treatment plan as appropriate Description: INTERVENTIONS: 1. Encourage patient or legal small business representative to report early pain and ask for pain medicine when needed 2. Assess pain using appropriate pain scale and include the scale used when documenting 3. Administer analgesics based on type and severity of pain and evaluate response within appropriate time frame 4. Implement non-pharmacological measures as appropriate and evaluate response 5. Consider cultural and social influences on pain and pain management 6. Notify LIP if interventions ineffective or patient reports new pain 7. Monitor vital signs including pulse ox, end-tidal CO2 based on pain intervention 8. Reassess pain per policy 9. Teach patient or legal small business representative interventions for comforting Outcome: Progressing Note: Evaluation of progress towards goal: after one & half hour patient pain have decreased / after intervention patient comfortable during hospitalization - continue to monitor Problem: Safety Goal: Patient will be injury free during hospitalization Description: INTERVENTIONS: 1. Assess patient's risk for falls and implement fall prevention plan of care per policy 2. Provide and maintain a safe environment 3. Proper use of double Identifiers 4. Medication administration using the 5 rights 5. Hand hygiene 6. Specimens are labeled at the bedside 7. Instruct patient/ patient small business representative about use of safety devices 8. Include patient/ patient small business representative in decisions related to safety Outcome: Progressing Note: Evaluation of progress towards goal: After Hourly rounding / proper nsg interventions pt is maintained free / reduced risk for injury; safety is ensured - continue to monitor Problem: Infection Goal: Absence of infection during hospitalization Description: Interventions: 1. Assess and monitor for signs and symptoms of infection 2. Monitor lab/diagnostic results 3. Monitor all insertion sites i.e., indwelling lines, tubes and drains 4. Monitor endotracheal (as able) and nasal secretions for changes in amount and color 5. Administer medications as ordered 6. Instruct and encourage patient and family to use good hand hygiene technique 7. Identify and instruct patient/patient small business representative in use of appropriate isolation precautionsfor identified infection/symptoms 8. Provide and discuss with patient/patient small business representative on educational MDRO sheet 9. Encourage and monitor nutritional status daily and consult director of accounting if indicated 10. Implement neutropenic guidelines as needed 11. Review exposure to history of communicable disease and recent travel history on admission 12. Encourage annual influenza vaccine 13. Encourage pneumonia vaccine Outcome: Progressing Note: Evaluation of progress towards goal: remain free of infection processes, such as elevated temp or drainage from surgical sites(if applicable) or acces sites; demonstrates measures to prevent infection, recognizes s/s, wbc remains wnl - continue to monitor Problem: Knowledge Deficit Goal: Patient/patient small business representative demonstrates understanding of disease process, treatment plan,medications, and discharge instructions Description: INTERVENTIONS 1. Complete learning assessment and assess knowledge base 2. Provide teaching at level of understanding 3. Provide teaching via preferred learning method(s) Outcome: Progressing Note: Evaluation of progress towards goal: patient will perform newly learned task safely and correctly during hospitalization and by discharge - continue to re educate / teach about his / her condition. Problem: Potential for Compromised Skin Integrity Goal: Skin integrity is maintained or improved Description: Patient's goal is: INTERVENTIONS 1. Perform initial skin assessment on admission and as needed 2. Turn patient every 2 hours and PRN 3. Relieve pressure to bony prominences 4. Avoid shearing 5. Keep skin clean and dry 6. Alternate a full bath with partial baths for elderly 7. Apply lotion/moisturizer on skin 8. Monitor patient's hygiene practices 9. Float heels 10. Collaborate with interdisciplinary team and initiate plans and interventions as needed Outcome: Progressing Note: Evaluation of progress towards goal: able to report any altered sensation or pain at the siteof tissue impairment; maintain and understanding of plan to heal tissue(if applicable) and prevent injury - continue to monitor Problem: Neurological Deficit Goal: Neurological status is stable or improving Description: Patient's goal is: INTERVENTIONS 1. Complete Neurological assessment as indicated/ordered 2. Initiate measures to prevent increased intracranial pressure 3. Monitor and assess patient's level of consciousness, motor function, sensory function, and levelof assistance needed for ADLs 4. Monitor and report changes from baseline 5. Maintain blood pressure and fluid volume within ordered parameters to optimize cerebral perfusion and minimize risk of hemorrhage 6. Monitor labs and diagnostic tests 7. Administer anti-seizure medications as ordered 8. Maintain airway, patient safety and administer oxygen as ordered 9. Monitor patient for seizure activity, document and report duration and description of seizure toLIP 10. If seizure occurs, turn patient to side and suction secretions as needed 11. Reorient patient post seizure 12. Seizure pads on all 4 side rails 13. Instruct patient/family to notify RN of any seizure activity 14. Instruct patient/family to call for assistance with activity based on assessment 15. Utilize bleeding precautions if thrombolytic given Outcome: Progressing Note: Evaluation of progress towards goal: Will maintain the usual / improved level of consciousness, cognition, motor, and sensory function; no further deterioration, recurrence of deficits - continue to monitor * Plan of Care - Naya Fishman RN - 01/21/2024 1:35 AM EDT Problem: Pain Goal: Patient goal is pain score less than 4, able to rest, and participant in treatment plan as appropriate Description: INTERVENTIONS: 1. Encourage patient or legal small business representative to report early pain and ask for pain medicine when needed 2. Assess pain using appropriate pain scale and include the scale used when documenting 3. Administer analgesics based on type and severity of pain and evaluate response within appropriate time frame 4. Implement non-pharmacological measures as appropriate and evaluate response 5. Consider cultural and social influences on pain and pain management 6. Notify LIP if interventions ineffective or patient reports new pain 7. Monitor vital signs including pulse ox, end-tidal CO2 based on pain intervention 8. Reassess pain per policy 9. Teach patient or legal small business representative interventions for comforting Outcome: Progressing Note: Evaluation of progress towards goal: Patient having complaints of back pain, rating pain 6-8/10. Tylenol scheduled q6h and has PRN medication on board. Continue to assess per policy. Problem: Safety Goal: Patient will be injury free during hospitalization Description: INTERVENTIONS: 1. Assess patient's risk for falls and implement fall prevention plan of care per policy 2. Provide and maintain a safe environment 3. Proper use of double Identifiers 4. Medication administration using the 5 rights 5. Hand hygiene 6. Specimens are labeled at the bedside 7. Instruct patient/ patient small business representative about use of safety devices 8. Include patient/ patient small business representative in decisions related to safety Outcome: Progressing Note: Evaluation of progress towards goal: Patient remains injury and fall free. Continue to monitor. Problem: Infection Goal: Absence of infection during hospitalization Description: Interventions: 1. Assess and monitor for signs and symptoms of infection 2. Monitor lab/diagnostic results 3. Monitor all insertion sites i.e., indwelling lines, tubes and drains 4. Monitor endotracheal (as able) and nasal secretions for changes in amount and color 5. Administer medications as ordered 6. Instruct and encourage patient and family to use good hand hygiene technique 7. Identify and instruct patient/patient small business representative in use of appropriate isolation precautionsfor identified infection/symptoms 8. Provide and discuss with patient/patient small business representative on educational MDRO sheet 9. Encourage and monitor nutritional status daily and consult director of accounting if indicated 10. Implement neutropenic guidelines as needed 11. Review exposure to history of communicable disease and recent travel history on admission 12. Encourage annual influenza vaccine 13. Encourage pneumonia vaccine Outcome: Progressing Note: Evaluation of progress towards goal: Patient remains free of infection. Patient received lastdose of prophylactic vancomycin at 0030. Problem: Knowledge Deficit Goal: Patient/patient small business representative demonstrates understanding of disease process, treatment plan,medications, and discharge instructions Description: INTERVENTIONS 1. Complete learning assessment and assess knowledge base 2. Provide teaching at level of understanding 3. Provide teaching via preferred learning method(s) Outcome: Progressing Note: Evaluation of progress towards goal: Patient verbalizes understanding of disease process, treatment plan, medications, and discharge plan. Continue to update with any changes. Problem: Discharge Planning Goal: Discharge to post-acute care, other facility, or home with appropriate resources Description: Patient's goal is: INTERVENTIONS 1. Conduct assessment to determine patient/family and health care team treatment goals, and need for post-acute services based on payer coverage, community resources, and patient preferences, and barriers to discharge 2. Coordinate with Social work, Care Navigation, and Utilization Review to arrange appropriate level of services according to patient's needs based on patient preference and payer coverage in collaboration with the physician and health care team 3. Address psychosocial, clinical, and financial barriers to discharge as identified in assessment in conjunction with the patient/family and health care team 4. Consult appropriate ancillary services (i.e.. PT/OT/ST, etc) as needed 5. Communicate with and update the patient/family, physician, and health care team regarding progress on the discharge plan 6. Identify discharge learning needs (meds, wound care, etc). 7. Arrange for needed discharge transportation as appropriate Outcome: Progressing Note: Evaluation of progress towards goal: Patient verbalizes discharge plan. Will continue to update with any changes. Problem: Potential for Compromised Skin Integrity Goal: Skin integrity is maintained or improved Description: Patient's goal is: INTERVENTIONS 1. Perform initial skin assessment on admission and as needed 2. Turn patient every 2 hours and PRN 3. Relieve pressure to bony prominences 4. Avoid shearing 5. Keep skin clean and dry 6. Alternate a full bath with partial baths for elderly 7. Apply lotion/moisturizer on skin 8. Monitor patient's hygiene practices 9. Float heels 10. Collaborate with interdisciplinary team and initiate plans and interventions as needed Outcome: Progressing Note: Evaluation of progress towards goal: Patient is post-op back surgery. Posterior back incisionwith Hemovac drain. Problem: Respiratory - Adult Goal: Achieves optimal ventilation and oxygenation Description: Patient's goal is: INTERVENTIONS: 1. Assess for changes in respiratory status 2. Assess for changes in mentation and behavior 3. Position to facilitate oxygenation and minimize respiratory effort 4. Oxygen supplementation based on oxygen saturation or ABGs as ordered 5. Consult smoking cessation as indicated 6. Encourage broncho-pulmonary hygiene including cough, deep breathe, Incentive Spirometry, keep HOB elevated as tolerated, and encourage ambulation, as ordered 7. Assess the need for suctioning and obtain order to maintain clear airway 8. Assess and instruct patient to report SOB or any respiratory difficulty 9. Assess the need for Respiratory Therapy support if not already ordered 10. Initiate emergency measures for respiratory failure Outcome: Progressing Note: Evaluation of progress towards goal: Patient currently on 3L of oxygen and able to maintain above 92%. * Perioperative Nursing Note - Leyla Alcantara RN - 01/20/2024 6:52 PM EDT Pt bedside glucose is 280. * Perioperative Nursing Note - Leyla Alcantara RN - 01/20/2024 5:41 PM EDT Pt bedside glucose is 293. * Perioperative Nursing Note - Leyla Alcantara RN - 01/20/2024 4:45 PM EDT Pt bedside glucose is 296. * Op Note - Eugene Patricia MD - 01/20/2024 1:04 PM EDT Attending: EUGENE PATRICIA MD Date: 01/20/24 Preop diagnosis: Lumbar degenerative disc disease, lumbar stenosis (foraminal stenosis at L5 bilaterally), lumbar radiculopaty, chronic lower back pain Postop diagnosis: Same Procedure: L5 revision laminectomy with bilateral partial medial and lateral facetectomy and foraminotomy for decompression Bilateral posterior interbody fusion with Titanium cages (Adaptix) 10 mm x 24 mm - packed with local autograft bone and allograft bone (pliafix) Posterior non-segmental instrumentation at L5 and S1 - Medtronic Solara pedicle screws (6.5 mm diameter) Use of O-arm and Stealth image guidance for image guided spinal fusion procedure Anesthesia: General tracheal Estimated blood loss: 150 ml Complications: none Condition: good Postop disposition: Recovery room Indication procedure: Patient has lumbar stenosis with chronic low back and leg pain - both legs - intermittently switches. Failed conservative therapy (he had three prior lower back surgeries). I counseled the patient about the risks and benefits of decompression and fusion for stenosis and potential instability and they voiced understanding wished to proceed. Operative report in detail: After obtaining written informed consent for the procedure the patient was brought to the operatingroom kept on the stretcher for induction of anesthesia. After induction general anesthesia intubation the patient was gently rolled in the prone position on the open Will table. All bony prominences were padded. There was no pressure on the eyes nose or chin. Arms were on arm boards with padding. Feet were on pillows on top of the half table take tension off the back and legs. The patient's back was marked and then prepped and draped in usual sterile fashion. The preoperative time-out completed. Perioperative IV direct prophylactic therapy was instilled. Local anesthetic was instilled at the expected incision site. The midline skin incision was created with a 10 blade scalpel. The subcutaneous tissues divided with Bovie electrocautery. Subperiosteal dissection was then used to expose the L4 (lower), L5 and S1 levels. X-rays were taken to help localize the level and confirm the site for surgery. The deep gelpi retractors were placed. The spinous process clamp was placed for image guidance and the O-arm was brought to the field. The O-arm spin(s) were completed and transferred to the [employer] image guidance station. Using the stealth image guidance the pedicles were cannulated, tapped and then screws placed at L5 and S1 - one of the L5 screws appeared slightly high - it was removed and thehole palpated - there was no bone violation and the screw was replaced in the same hole. Each of the screws had good purchase. The laminectomies at L5 (bilatera) were then completed (right side revision) by using the leksell ronguer to remove the spinous processes and to thin the lamina. The laminectomies were completed withkerrison punches keeping the pars intact bilaterally at each level. The neural foramina were openedby undercutting the pars and by removing the redundant ligamentum flavum. The lateral recess stenosis was decompressed by undercutting both the medial and lateral facets and removing the adjacent ligamentum flavum. The medial and lateral facets were undercut and the neural foramina at L5 widely opened. The disc at L5-S1 was identfied and opend with a 15 blade scalpel. The scrapers were used to prep the disc space (using 7 up to 9 mm scrapers). The disc was removed and the end plates were scraped clean. The 10mm trial was placed on one side. The 10 mm x 24 mm Adaptix (titanium) cage was packed with local autograft and allograft (pliafix) and impacted under direct vision. The trial was removed and another cage with bone graft was placed contralaterally. The disc space was packed with additional bone graft to help with bone fusion. The thecal sac was inspected and there was no evidence of CSF leak. Goodsurgical hemostasis was obtained. The transverse processes and facet joints/lateral pars were then all decorticated. The collected, cleaned and morselized autograft bone was mixed with allograft bone (pliafix) and packed along the transverse processes, facets and remanant lamina for fusion at L5-S1 bilaterally. The rods were selected and placed into the heads of the pedicle screws. The set screws were placed, provisionally and final tightened. The retractor was removed and the surgical site was checked for hemostasis. A few bleeding points were coagulated as needed. A hemovac drain was placed. The wound was irrigated and checked once more for hemostasis. The muscle fascia was closed with 0 Vicryl suture in interrupted fashion. The skin was closed with 2 Vicryl suture in inverted fashion in the subcu layer the skin. Final skin closure was with Dermabond and Steri-Strips. Sterile dressing was applied. EUGENE PATRICIA MD was present for completed the entire procedure. At the end the procedure all sponge, needle and instrument counts were correct. There were no immediate perioperative complications. EUGENE PATRICIA MD * Brief Op Note - Eugene Patricia MD - 01/20/2024 1:04 PM EDT Brief Post-op Note NAME: Zeeshan Llanos : 1975 PROCEDURE DATE: 01/20/2024 Surgeon: Surgeons and Role: * Eugene Patricia MD - Primary Assistants: None Staff: Forest Nursery Supervisor Primary: Joe Tavera RN Forest Nursery Supervisor Relief: Paula Reeves RN Scrub Person: ST Saira Pre-op Diagnosis: Spinal stenosis of lumbar region with neurogenic claudication [M48.062] Procedure Details: Procedure(s): STEALTH POSTERIOR INTERBODY FUSION LUMBAR SINGLE LEVEL/ L5-S1 Posterior Lumbar Interbody Fusion - Wound Class: Clean L5 revision laminectomy with bilateral partial medial and lateral facetectomy and foraminotomy for decompression Bilateral posterior interbody fusion with Titanium cages (Adaptix) 10 mm x 24 mm - packed with local autograft bone and allograft bone (pliafix) Posterior non-segmental instrumentation at L5 and S1 - Medtronic Solara pedicle screws (6.5 mm diameter) Use of O-arm and Stealth image guidance for image guided spinal fusion procedure Anesthesia Type: General Post-Op Diagnosis Codes: * Spinal stenosis of lumbar region with neurogenic claudication [M48.062] Complications: none Additions (Drains, Specimens, Implants): Drains: Closed/Suction Drain 01/20/24 Back Accordion (Active) Drain/Tube Status To bulb suction 01/20/24 1600 Site Assessment Sutured 01/20/24 1600 Drain Securement Sutured 01/20/24 1600 Dressing Type Gauze;Occlusive 10/28/24 1600 Dressing Status Clean;Dry;Intact 01/20/24 1600 Dressing Intervention Initial dressing 01/20/24 1600 Implants: Implant Name Type Inv. Item Serial No. Community Service Officer Lot No. LRB No. Used Action GRAFT BN BN FBR 10CC FRZDR PLIAFX RPL [id number] [id number] - [id number] - [id number] Graft GRAFT BN BN FBR 10CC FRZDR PLIAFX RPL [id number] [id number] Lifenet N/A 1 Implanted SCREW BN 50MM 6.5MM MA LP 2 LD CLR CD SPNE TI COCR CD HZN - [id number] Screw SCREW BN 50MM 6.5MM MALP 2 LD CLR CD SPNE TI COCR CD HZN use MDTR SPIN N/A 1 Implanted SCREW BN 45MM 6.5MM MA LP 2 LD CLR CD SPNE TI COCR CD HZN - [id number] Screw SCREW BN 45MM 6.5MM MALP 2 LD CLR CD SPNE TI COCR CD HZN use MDTR SPIN N/A 2 Implanted SCREW BN 40X6.5MM 2 LD MA CLR - [id number] Screw SCREW BN 40X6.5MM 2 LD MA CLR use MDTR SPIN N/A 1 Implanted SPACER SPNL [id number] ADAPTIX - [id number] Other Implant SPACER SPNL [id number] ADAPTIX [employer] Sofamor Danek [id number] N/A 1 Implanted SPACER SPNL [id number] ADAPTIX - [id number] Other Implant SPACER SPNL [id number] ADAPTIX [employer] Sofamor Danek [id number] N/A 1 Implanted LINA SPNL CD HZN SOLERA 40MM 4.75MM PREB COCRMO CRV NS SOLERA - [id number] Lina LINA SPNL CD HZN SOLERA 40MM 4.75MM PREB COCRMO CRV NS SOLERA use MDTR SPIN N/A 2 Implanted SCREW SET TI SPNE BRK OFF CD HZN NS 4.75 MM LINA - [id number] Screw SCREW SET TI SPNE BRK OFF CD HZNNS 4.75 MM LINA use MDTR SPIN N/A 4 Implanted Estimated Blood Loss: 150 mL OB Surgical Procedure Blood Loss: Anesthesia EBL: * No values recorded between 01/20/2024 1:04 PM and 01/20/2024 4:16 PM * OB QBL: * No values recorded between 01/20/2024 1:04 PM and 01/20/2024 4:16 PM * Total IV Fluids: Intravenous fluids were administered Crystalloids 1000mls Colloids 0 mls. Condition: good Findings: lumbar spondylosis, lateral recess stenosis, partially calcified disc herniation at L5-S1 Evidence of infection was not visualized at time of surgery. EUGENE PATRICIA MD documented in this encounterMem[facility] HospitalLambda Solutions [facility] Choice Medical [id number] Progress note* Discharge Planning Note - Dee Hernandez RN - 01/22/2024 10:05 AM EDT DISCHARGE PLANNING NOTE Per RN during discharge transition rounds, barriers to discharge are: hemovac drainage, . Discharge Plan: Home with self care and spouse support. Planning discharge tomorrow, possible discharge later today if drainage lessens. Pump Tender will continue to follow for any discharge needs. - Dee Hernandez RN 01/22/24 10:06 AM [facility]10-29-2024 Plan of care note* Plan of Care - Naya Fishman RN - 01/21/2024 10:04 PM EDT Problem: Pain Goal: Patient goal is pain score less than 4, able to rest, and participant in treatment plan as appropriate Description: INTERVENTIONS: 1. Encourage patient or legal small business representative to report early pain and ask for pain medicine when needed 2. Assess pain using appropriate pain scale and include the scale used when documenting 3. Administer analgesics based on type and severity of pain and evaluate response within appropriate time frame 4. Implement non-pharmacological measures as appropriate and evaluate response 5. Consider cultural and social influences on pain and pain management 6. Notify LIP if interventions ineffective or patient reports new pain 7. Monitor vital signs including pulse ox, end-tidal CO2 based on pain intervention 8. Reassess pain per policy 9. Teach patient or legal small business representative interventions for comforting Outcome: Progressing Note: Evaluation of progress towards goal: Patient rating pain 6/10. PRN medication given and pain improved. Continue to reassess per policy. Problem: Safety Goal: Patient will be injury free during hospitalization Description: INTERVENTIONS: 1. Assess patient's risk for falls and implement fall prevention plan of care per policy 2. Provide and maintain a safe environment 3. Proper use of double Identifiers 4. Medication administration using the 5 rights 5. Hand hygiene 6. Specimens are labeled at the bedside 7. Instruct patient/ patient small business representative about use of safety devices 8. Include patient/ patient small business representative in decisions related to safety Outcome: Progressing Note: Evaluation of progress towards goal: Patient remains injury and fall free. Continue to monitor. Problem: Infection Goal: Absence of infection during hospitalization Description: Interventions: 1. Assess and monitor for signs and symptoms of infection 2. Monitor lab/diagnostic results 3. Monitor all insertion sites i.e., indwelling lines, tubes and drains 4. Monitor endotracheal (as able) and nasal secretions for changes in amount and color 5. Administer medications as ordered 6. Instruct and encourage patient and family to use good hand hygiene technique 7. Identify and instruct patient/patient small business representative in use of appropriate isolation precautionsfor identified infection/symptoms 8. Provide and discuss with patient/patient small business representative on educational MDRO sheet 9. Encourage and monitor nutritional status daily and consult director of accounting if indicated 10. Implement neutropenic guidelines as needed 11. Review exposure to history of communicable disease and recent travel history on admission 12. Encourage annual influenza vaccine 13. Encourage pneumonia vaccine Outcome: Progressing Note: Evaluation of progress towards goal: Patient remains free of infection. Continue to monitor. Problem: Knowledge Deficit Goal: Patient/patient small business representative demonstrates understanding of disease process, treatment plan,medications, and discharge instructions Description: INTERVENTIONS 1. Complete learning assessment and assess knowledge base 2. Provide teaching at level of understanding 3. Provide teaching via preferred learning method(s) Outcome: Progressing Note: Evaluation of progress towards goal: Patient verbalizes understanding of disease process, treatment plan, medications, and discharge plan. Continue to update with any changes. Problem: Discharge Planning Goal: Discharge to post-acute care, other facility, or home with appropriate resources Description: Patient's goal is: INTERVENTIONS 1. Conduct assessment to determine patient/family and health care team treatment goals, and need for post-acute services based on payer coverage, community resources, and patient preferences, and barriers to discharge 2. Coordinate with Social work, Care Navigation, and Utilization Review to arrange appropriate level of services according to patient's needs based on patient preference and payer coverage in collaboration with the physician and health care team 3. Address psychosocial, clinical, and financial barriers to discharge as identified in assessment in conjunction with the patient/family and health care team 4. Consult appropriate ancillary services (i.e.. PT/OT/ST, etc) as needed 5. Communicate with and update the patient/family, physician, and health care team regarding progress on the discharge plan 6. Identify discharge learning needs (meds, wound care, etc). 7. Arrange for needed discharge transportation as appropriate Outcome: Progressing Note: Evaluation of progress towards goal: Patient verbalizes discharge plan. Will continue to update with any changes. Problem: Potential for Compromised Skin Integrity Goal: Skin integrity is maintained or improved Description: Patient's goal is: INTERVENTIONS 1. Perform initial skin assessment on admission and as needed 2. Turn patient every 2 hours and PRN 3. Relieve pressure to bony prominences 4. Avoid shearing 5. Keep skin clean and dry 6. Alternate a full bath with partial baths for elderly 7. Apply lotion/moisturizer on skin 8. Monitor patient's hygiene practices 9. Float heels 10. Collaborate with interdisciplinary team and initiate plans and interventions as needed Outcome: Progressing Note: Evaluation of progress towards goal: Patient is post-op back surgery. Posterior back incisionwith Hemovac drain. Problem: Respiratory - Adult Goal: Achieves optimal ventilation and oxygenation Description: Patient's goal is: INTERVENTIONS: 1. Assess for changes in respiratory status 2. Assess for changes in mentation and behavior 3. Position to facilitate oxygenation and minimize respiratory effort 4. Oxygen supplementation based on oxygen saturation or ABGs as ordered 5. Consult smoking cessation as indicated 6. Encourage broncho-pulmonary hygiene including cough, deep breathe, Incentive Spirometry, keep HOB elevated as tolerated, and encourage ambulation, as ordered 7. Assess the need for suctioning and obtain order to maintain clear airway 8. Assess and instruct patient to report SOB or any respiratory difficulty 9. Assess the need for Respiratory Therapy support if not already ordered 10. Initiate emergency measures for respiratory failure Outcome: Progressing Note: Evaluation of progress towards goal: Patient removed from oxygen during the day. Oxygen levels staying above 92%. Problem: Low Risk Fall Score Description: Mcelroy Fall Score of 0 - 24 or indicated by [facility] Assessment Goal: Patient should be free from fall Description: Interventions: 1. [place] to environment 2. Hourly rounds addressing the 4 P's (Pain, Positioning, Possessions, Potty) 3. Clear area of hazards (spills, clutter, electrical cords, unnecessary equipment) 4. Place equipment (bed & TV controls, call light, phone, urinal) within reach 5. Encourage patient to wear glasses and hearing aides as appropriate 6. Maintain bed in lowest position 7. Lock wheels on bed/wheelchair 8. Provide adequate lighting, including night light 9. Assess need for additional bedding, food/fluids, pain med's prior to sleep/routinely 10. Provide gripper slippers or personal non-skid footwear 11. Teach patient and patient small business representative to maintain environment for safety and engage in all aspects of fall prevention program Outcome: Progressing Note: Evaluation of progress towards goal: Patient remains injury and fall free. Continue to monitor. Problem: Activity Intolerance/Impaired Mobility Goal: Mobility/activity is maintained at optimum level for patient Description: Patient's goal is: INTERVENTIONS 1. Assess and monitor patient barriers to mobility and need for assistive/adaptive devices 2. Assess patient's emotional response to limitations 3. Collaborate with interdisciplinary teams and initiate plans and interventions as ordered 4. Encourage independent activity per tolerance 5. Maintain proper body alignment 6. Perform active/passive ROM as tolerated/ordered 7. Coordinate activities to conserve energy 8. Reposition patient 9. Ensure adequate rest/sleep time Outcome: Progressing Note: Evaluation of progress towards goal: Patient is up and walking around without assistive devices. Patient is also independent with hygiene needs. Problem: Neurological Deficit Goal: Neurological status is stable or improving Description: Patient's goal is: INTERVENTIONS 1. Complete Neurological assessment as indicated/ordered 2. Initiate measures to prevent increased intracranial pressure 3. Monitor and assess patient's level of consciousness, motor function, sensory function, and levelof assistance needed for ADLs 4. Monitor and report changes from baseline 5. Maintain blood pressure and fluid volume within ordered parameters to optimize cerebral perfusion and minimize risk of hemorrhage 6. Monitor labs and diagnostic tests 7. Administer anti-seizure medications as ordered 8. Maintain airway, patient safety and administer oxygen as ordered 9. Monitor patient for seizure activity, document and report duration and description of seizure toLIP 10. If seizure occurs, turn patient to side and suction secretions as needed 11. Reorient patient post seizure 12. Seizure pads on all 4 side rails 13. Instruct patient/family to notify RN of any seizure activity 14. Instruct patient/family to call for assistance with activity based on assessment 15. Utilize bleeding precautions if thrombolytic given Outcome: Progressing Note: Evaluation of progress towards goal: Neuro assessments q4h and with any signs of changes frombaseline per policy. Patient is A&O x4. [facility] [employer] [place] [id number] History of Present illness Narrative* Abiola Barros PA-C - 01/21/2024 2:06 PM EDT Images from the original note were not included. [facility] [address] [place] [address], [place] [address] * NEUROSURGERY DAILY PROGRESS NOTE DATE:01/21/2024 PATIENT'S NAME: Zeeshan Llanos PATIENT'S PATIENT'S : 1975 PROCEDURE POD#1 L5 revision laminectomy with bilateral partial medial and lateral facetectomy and foraminotomy for decompression Bilateral posterior interbody fusion with Titanium cages (Adaptix) 10 mm x 24 mm - packed with local autograft bone and allograft bone (pliafix) Posterior non-segmental instrumentation at L5 and S1 - Medtronic Solara pedicle screws (6.5 mm diameter) Use of O-arm and Stealth image guidance for image guided spinal fusion procedure EVENTS LAST 24 HOURS / SUBJECTIVE No acute events overnight. Patient reports pain controlled. Eager to go home PHYSICAL EXAM Temp: [36 C (96.8 F)-36.7 C (98.1 F)] 36.7 C (98 F) Pulse: [75-95] 85 Resp: [14-27] 18 BP: (105-181)/(58-97) 110/74 SpO2: [90 %-100 %] 97 % O2 Device: None (Room air) O2 Flow Rate (L/min): [2 L/min-9 L/min] 3 L/min Drain output: 30/285ml- bloody No acute distress Awake and Alert Respirations even and unlabored Abdomen soft and nontender Regular heart rate and rhythm PERRL BUE/BLE strength and sensation intact Incision: dressing C/D/I LABORATORY DATA Results from last 7 days Lab Units 01/21/24 1222 01/21/24 0849 01/21/24 0410 01/20/24200701/20/24 1852 SODIUM mmol/L -- -- 137 135 -- POTASSIUM mmol/L -- -- 4.3 4.2 -- CREATININE mg/dL -- -- 0.74 0.82 -- BEDSIDE GLUCOSE mg/dL 371* 254* -- -- 280* GLUCOSE mg/dL -- -- 312* 303* -- CALCIUM mg/dL -- -- 8.5 8.8 -- APTT sec -- -- 27 -- -- WBC X10E9/L -- -- 18.2* 18.8* -- HEMATOCRIT % -- -- 42.6 46.8 -- HEMOGLOBIN g/dL -- -- 14.0 15.5 -- PLATELETS X10E9/L -- -- 232 228 -- IMAGING Lumbar Xray Postoperative changes of lumbar fusion hardware L5-S1. No acute process. ASSESSMENT 48 year old male with history of Lumbar degenerative disc disease and lumbar stenosis s/p L5 revision laminectomy and fusion. PLAN - maintain surgical drain. Continue to document output [id number]. - SCD's/SQ heparin for DVT prophylaxis - Encourage mobility - Encourage IS - Pain control - Continue current regimen. Plan to utilize PO and limit IV narcotics - Continue bowel regimen - PT/OT recommending home - Ferrer discontinued - DC Planning - pending decrease in drain output, anticipate tomorrow Abiola Barros PA-C Neurosurgery [facility] [employer] Chat preferred Patient Touch 01/21/24 2:06 PM To find out which PETER is on for the day please go to ON-Call Finder in [employer] or [employer] and use log in TeamLINKS and search for PTH Neurosurgery Abiola Barros PA-C 01/21/24 1410 documented in [facility]-29-2024 Progress note* Discharge Planning Note - Dee Hernandez RN - 01/21/2024 11:48 AM EDT Images from the original note were not included. DISCHARGE PLANNING NOTE Services Requested: Services Requested Discharge Disposition: Home with self care Does the patient need discharge transportation arranged?: No Visiting Physician/Provider: Crystal Carmona MD Initial DC Assessment Completed: Yes Patient Goals: Patient/Caregiver Goals Patient/Caregiver Goals: Home No Needs Goals: Goals Return home (pt-stated) Evaluation of progress towards goal: Plan to return home with spouse. Patient admitted for: lumbar stenosis. L5 laminectomy, L5-S1 fusion, hardware Patient discussed in discharge transition rounds: Per RN report : hemovac drain, PT /OT recommendedHome with CG support. CN spoke with patient and spouse , Katy, at bedside, introduced self and explained role. Patient is alert and oriented. Patient lives with spouse in a one story home with no steps to enter, bed/bathrooms on first floor with no flights of stairs. Patient stated they were independent with ADL's and patient was able to drive prior to admission. Patient states that they currently shower chair, 4 wheeled walker, sock aide, admissions rn DME. Patient endorses no issue financially with being able to obtainmedications or food. Patient states that they have working water, gas and electric. Patient's preferred pharmacy is [facility] in [place], [place]. Per patient self report: Drug use: deny ETOH use: deny Smoking: yes, 2 packs daily. Planning to reduce smoking and eventually quit. PCP added to follow up provider list to receive summary of care at discharge. Based on readmission risk assessment, patient has no risk score for readmission due to Observation status. The following arrangements have been made to help prevent readmission. D/C Plan: Home with self care and spouse support. [facility] tasked to arrangefollow up PCP appointment. Pump Tender will continue to follow for any discharge needs. - KOLE Amaya 01/21/24 11:50 AM [id number] Plan of care note* Plan of Care - Asim Wilder RN - 01/21/2024 11:42 AM EDT Problem: Pain Goal: Patient goal is pain score less than 4, able to rest, and participant in treatment plan as appropriate Description: INTERVENTIONS: 1. Encourage patient or legal small business representative to report early pain and ask for pain medicine when needed 2. Assess pain using appropriate pain scale and include the scale used when documenting 3. Administer analgesics based on type and severity of pain and evaluate response within appropriate time frame 4. Implement non-pharmacological measures as appropriate and evaluate response 5. Consider cultural and social influences on pain and pain management 6. Notify LIP if interventions ineffective or patient reports new pain 7. Monitor vital signs including pulse ox, end-tidal CO2 based on pain intervention 8. Reassess pain per policy 9. Teach patient or legal small business representative interventions for comforting Outcome: Progressing Note: Evaluation of progress towards goal: after one & half hour patient pain have decreased / after intervention patient comfortable during hospitalization - continue to monitor Problem: Safety Goal: Patient will be injury free during hospitalization Description: INTERVENTIONS: 1. Assess patient's risk for falls and implement fall prevention plan of care per policy 2. Provide and maintain a safe environment 3. Proper use of double Identifiers 4. Medication administration using the 5 rights 5. Hand hygiene 6. Specimens are labeled at the bedside 7. Instruct patient/ patient small business representative about use of safety devices 8. Include patient/ patient small business representative in decisions related to safety Outcome: Progressing Note: Evaluation of progress towards goal: After Hourly rounding / proper nsg interventions pt is maintained free / reduced risk for injury; safety is ensured - continue to monitor Problem: Infection Goal: Absence of infection during hospitalization Description: Interventions: 1. Assess and monitor for signs and symptoms of infection 2. Monitor lab/diagnostic results 3. Monitor all insertion sites i.e., indwelling lines, tubes and drains 4. Monitor endotracheal (as able) and nasal secretions for changes in amount and color 5. Administer medications as ordered 6. Instruct and encourage patient and family to use good hand hygiene technique 7. Identify and instruct patient/patient small business representative in use of appropriate isolation precautionsfor identified infection/symptoms 8. Provide and discuss with patient/patient small business representative on educational MDRO sheet 9. Encourage and monitor nutritional status daily and consult director of accounting if indicated 10. Implement neutropenic guidelines as needed 11. Review exposure to history of communicable disease and recent travel history on admission 12. Encourage annual influenza vaccine 13. Encourage pneumonia vaccine Outcome: Progressing Note: Evaluation of progress towards goal: remain free of infection processes, such as elevated temp or drainage from surgical sites(if applicable) or acces sites; demonstrates measures to prevent infection, recognizes s/s, wbc remains wnl - continue to monitor Problem: Knowledge Deficit Goal: Patient/patient small business representative demonstrates understanding of disease process, treatment plan,medications, and discharge instructions Description: INTERVENTIONS 1. Complete learning assessment and assess knowledge base 2. Provide teaching at level of understanding 3. Provide teaching via preferred learning method(s) Outcome: Progressing Note: Evaluation of progress towards goal: patient will perform newly learned task safely and correctly during hospitalization and by discharge - continue to re educate / teach about his / her condition. Problem: Potential for Compromised Skin Integrity Goal: Skin integrity is maintained or improved Description: Patient's goal is: INTERVENTIONS 1. Perform initial skin assessment on admission and as needed 2. Turn patient every 2 hours and PRN 3. Relieve pressure to bony prominences 4. Avoid shearing 5. Keep skin clean and dry 6. Alternate a full bath with partial baths for elderly 7. Apply lotion/moisturizer on skin 8. Monitor patient's hygiene practices 9. Float heels 10. Collaborate with interdisciplinary team and initiate plans and interventions as needed Outcome: Progressing Note: Evaluation of progress towards goal: able to report any altered sensation or pain at the siteof tissue impairment; maintain and understanding of plan to heal tissue(if applicable) and prevent injury - continue to monitor Problem: Neurological Deficit Goal: Neurological status is stable or improving Description: Patient's goal is: INTERVENTIONS 1. Complete Neurological assessment as indicated/ordered 2. Initiate measures to prevent increased intracranial pressure 3. Monitor and assess patient's level of consciousness, motor function, sensory function, and levelof assistance needed for ADLs 4. Monitor and report changes from baseline 5. Maintain blood pressure and fluid volume within ordered parameters to optimize cerebral perfusion and minimize risk of hemorrhage 6. Monitor labs and diagnostic tests 7. Administer anti-seizure medications as ordered 8. Maintain airway, patient safety and administer oxygen as ordered 9. Monitor patient for seizure activity, document and report duration and description of seizure toLIP 10. If seizure occurs, turn patient to side and suction secretions as needed 11. Reorient patient post seizure 12. Seizure pads on all 4 side rails 13. Instruct patient/family to notify RN of any seizure activity 14. Instruct patient/family to call for assistance with activity based on assessment 15. Utilize bleeding precautions if thrombolytic given Outcome: Progressing Note: Evaluation of progress towards goal: Will maintain the usual / improved level of consciousness, cognition, motor, and sensory function; no further deterioration, recurrence of deficits - continue to monitor [facility]10-29-2024 Plan of care note* Plan of Care - Naya Fishman RN - 01/21/2024 1:35 AM EDT Problem: Pain Goal: Patient goal is pain score less than 4, able to rest, and participant in treatment plan as appropriate Description: INTERVENTIONS: 1. Encourage patient or legal small business representative to report early pain and ask for pain medicine when needed 2. Assess pain using appropriate pain scale and include the scale used when documenting 3. Administer analgesics based on type and severity of pain and evaluate response within appropriate time frame 4. Implement non-pharmacological measures as appropriate and evaluate response 5. Consider cultural and social influences on pain and pain management 6. Notify LIP if interventions ineffective or patient reports new pain 7. Monitor vital signs including pulse ox, end-tidal CO2 based on pain intervention 8. Reassess pain per policy 9. Teach patient or legal small business representative interventions for comforting Outcome: Progressing Note: Evaluation of progress towards goal: Patient having complaints of back pain, rating pain 6-8/10. Tylenol scheduled q6h and has PRN medication on board. Continue to assess per policy. Problem: Safety Goal: Patient will be injury free during hospitalization Description: INTERVENTIONS: 1. Assess patient's risk for falls and implement fall prevention plan of care per policy 2. Provide and maintain a safe environment 3. Proper use of double Identifiers 4. Medication administration using the 5 rights 5. Hand hygiene 6. Specimens are labeled at the bedside 7. Instruct patient/ patient small business representative about use of safety devices 8. Include patient/ patient small business representative in decisions related to safety Outcome: Progressing Note: Evaluation of progress towards goal: Patient remains injury and fall free. Continue to monitor. Problem: Infection Goal: Absence of infection during hospitalization Description: Interventions: 1. Assess and monitor for signs and symptoms of infection 2. Monitor lab/diagnostic results 3. Monitor all insertion sites i.e., indwelling lines, tubes and drains 4. Monitor endotracheal (as able) and nasal secretions for changes in amount and color 5. Administer medications as ordered 6. Instruct and encourage patient and family to use good hand hygiene technique 7. Identify and instruct patient/patient small business representative in use of appropriate isolation precautionsfor identified infection/symptoms 8. Provide and discuss with patient/patient small business representative on educational MDRO sheet 9. Encourage and monitor nutritional status daily and consult director of accounting if indicated 10. Implement neutropenic guidelines as needed 11. Review exposure to history of communicable disease and recent travel history on admission 12. Encourage annual influenza vaccine 13. Encourage pneumonia vaccine Outcome: Progressing Note: Evaluation of progress towards goal: Patient remains free of infection. Patient received lastdose of prophylactic vancomycin at 0030. Problem: Knowledge Deficit Goal: Patient/patient small business representative demonstrates understanding of disease process, treatment plan,medications, and discharge instructions Description: INTERVENTIONS 1. Complete learning assessment and assess knowledge base 2. Provide teaching at level of understanding 3. Provide teaching via preferred learning method(s) Outcome: Progressing Note: Evaluation of progress towards goal: Patient verbalizes understanding of disease process, treatment plan, medications, and discharge plan. Continue to update with any changes. Problem: Discharge Planning Goal: Discharge to post-acute care, other facility, or home with appropriate resources Description: Patient's goal is: INTERVENTIONS 1. Conduct assessment to determine patient/family and health care team treatment goals, and need for post-acute services based on payer coverage, community resources, and patient preferences, and barriers to discharge 2. Coordinate with Social work, Care Navigation, and Utilization Review to arrange appropriate level of services according to patient's needs based on patient preference and payer coverage in collaboration with the physician and health care team 3. Address psychosocial, clinical, and financial barriers to discharge as identified in assessment in conjunction with the patient/family and health care team 4. Consult appropriate ancillary services (i.e.. PT/OT/ST, etc) as needed 5. Communicate with and update the patient/family, physician, and health care team regarding progress on the discharge plan 6. Identify discharge learning needs (meds, wound care, etc). 7. Arrange for needed discharge transportation as appropriate Outcome: Progressing Note: Evaluation of progress towards goal: Patient verbalizes discharge plan. Will continue to update with any changes. Problem: Potential for Compromised Skin Integrity Goal: Skin integrity is maintained or improved Description: Patient's goal is: INTERVENTIONS 1. Perform initial skin assessment on admission and as needed 2. Turn patient every 2 hours and PRN 3. Relieve pressure to bony prominences 4. Avoid shearing 5. Keep skin clean and dry 6. Alternate a full bath with partial baths for elderly 7. Apply lotion/moisturizer on skin 8. Monitor patient's hygiene practices 9. Float heels 10. Collaborate with interdisciplinary team and initiate plans and interventions as needed Outcome: Progressing Note: Evaluation of progress towards goal: Patient is post-op back surgery. Posterior back incisionwith Hemovac drain. Problem: Respiratory - Adult Goal: Achieves optimal ventilation and oxygenation Description: Patient's goal is: INTERVENTIONS: 1. Assess for changes in respiratory status 2. Assess for changes in mentation and behavior 3. Position to facilitate oxygenation and minimize respiratory effort 4. Oxygen supplementation based on oxygen saturation or ABGs as ordered 5. Consult smoking cessation as indicated 6. Encourage broncho-pulmonary hygiene including cough, deep breathe, Incentive Spirometry, keep HOB elevated as tolerated, and encourage ambulation, as ordered 7. Assess the need for suctioning and obtain order to maintain clear airway 8. Assess and instruct patient to report SOB or any respiratory difficulty 9. Assess the need for Respiratory Therapy support if not already ordered 10. Initiate emergency measures for respiratory failure Outcome: Progressing Note: Evaluation of progress towards goal: Patient currently on 3L of oxygen and able to maintain above 92%. [employer] [id number] Nurse Note* Perioperative Nursing Note - Leyla Alcantara RN - 01/20/2024 6:52 PM EDT Pt bedside glucose is 280. [facility] [id number] Nurse Note* Perioperative Nursing Note - Leyla Alcantara RN - 01/20/2024 5:41 PM EDT Pt bedside glucose is 293. [facility]10-28-2024 Nurse Note* Perioperative Nursing Note - Leyla Alcantara RN - 01/20/2024 4:45 PM EDT Pt bedside glucose is 296. [facility]10-28-2024 Procedure note* Op Note - Eugene Patricia MD - 01/20/2024 1:04 PM EDT Attending: EUGENE PATRICIA MD Date: 01/20/24 Preop diagnosis: Lumbar degenerative disc disease, lumbar stenosis (foraminal stenosis at L5 bilaterally), lumbar radiculopaty, chronic lower back pain Postop diagnosis: Same Procedure: L5 revision laminectomy with bilateral partial medial and lateral facetectomy and foraminotomy for decompression Bilateral posterior interbody fusion with Titanium cages (Adaptix) 10 mm x 24 mm - packed with local autograft bone and allograft bone (pliafix) Posterior non-segmental instrumentation at L5 and S1 - Medtronic Solara pedicle screws (6.5 mm diameter) Use of O-arm and Stealth image guidance for image guided spinal fusion procedure Anesthesia: General tracheal Estimated blood loss: 150 ml Complications: none Condition: good Postop disposition: Recovery room Indication procedure: Patient has lumbar stenosis with chronic low back and leg pain - both legs - intermittently switches. Failed conservative therapy (he had three prior lower back surgeries). I counseled the patient about the risks and benefits of decompression and fusion for stenosis and potential instability and they voiced understanding wished to proceed. Operative report in detail: After obtaining written informed consent for the procedure the patient was brought to the operatingroom kept on the stretcher for induction of anesthesia. After induction general anesthesia intubation the patient was gently rolled in the prone position on the open Will table. All bony prominences were padded. There was no pressure on the eyes nose or chin. Arms were on arm boards with padding. Feet were on pillows on top of the half table take tension off the back and legs. The patient's back was marked and then prepped and draped in usual sterile fashion. The preoperative time-out completed. Perioperative IV direct prophylactic therapy was instilled. Local anesthetic was instilled at the expected incision site. The midline skin incision was created with a 10 blade scalpel. The subcutaneous tissues divided with Bovie electrocautery. Subperiosteal dissection was then used to expose the L4 (lower), L5 and S1 levels. X-rays were taken to help localize the level and confirm the site for surgery. The deep gelpi retractors were placed. The spinous process clamp was placed for image guidance and the O-arm was brought to the field. The O-arm spin(s) were completed and transferred to the [employer] image guidance station. Using the [employer] image guidance the pedicles were cannulated, tapped and then screws placed at L5 and S1 - one of the L5 screws appeared slightly high - it was removed and thehole palpated - there was no bone violation and the screw was replaced in the same hole. Each of the screws had good purchase. The laminectomies at L5 (bilatera) were then completed (right side revision) by using the leksell ronguer to remove the spinous processes and to thin the lamina. The laminectomies were completed withkerrison punches keeping the pars intact bilaterally at each level. The neural foramina were openedby undercutting the pars and by removing the redundant ligamentum flavum. The lateral recess stenosis was decompressed by undercutting both the medial and lateral facets and removing the adjacent ligamentum flavum. The medial and lateral facets were undercut and the neural foramina at L5 widely opened. The disc at L5-S1 was identfied and opend with a 15 blade scalpel. The scrapers were used to prep the disc space (using 7 up to 9 mm scrapers). The disc was removed and the end plates were scraped clean. The 10mm trial was placed on one side. The 10 mm x 24 mm Adaptix (titanium) cage was packed with local autograft and allograft (pliafix) and impacted under direct vision. The trial was removed and another cage with bone graft was placed contralaterally. The disc space was packed with additional bone graft to help with bone fusion. The thecal sac was inspected and there was no evidence of CSF leak. Goodsurgical hemostasis was obtained. The transverse processes and facet joints/lateral pars were then all decorticated. The collected, cleaned and morselized autograft bone was mixed with allograft bone (pliafix) and packed along the transverse processes, facets and remanant lamina for fusion at L5-S1 bilaterally. The rods were selected and placed into the heads of the pedicle screws. The set screws were placed, provisionally and final tightened. The retractor was removed and the surgical site was checked for hemostasis. A few bleeding points were coagulated as needed. A hemovac drain was placed. The wound was irrigated and checked once more for hemostasis. The muscle fascia was closed with 0 Vicryl suture in interrupted fashion. The skin was closed with 2 Vicryl suture in inverted fashion in the subcu layer the skin. Final skin closure was with Dermabond and Steri-Strips. Sterile dressing was applied. EUGENE PATRICIA MD was present for completed the entire procedure. At the end the procedure all sponge, needle and instrument counts were correct. There were no immediate perioperative complications. EUGENE PATRICIA MD [facility] [employer] [place] [id number] Procedure note* Brief Op Note - Eugene Patricia MD - 01/20/2024 1:04 PM EDT Brief Post-op Note NAME: Zeeshan Llanos : 1975 PROCEDURE DATE: 01/20/2024 Surgeon: Surgeons and Role: * Eugene Patricia MD - Primary Assistants: None Staff: Forest Nursery Supervisor Primary: Joe Tavera RN Forest Nursery Supervisor Relief: Paula Reeves RN Scrub Person: ST Saira Pre-op Diagnosis: Spinal stenosis of lumbar region with neurogenic claudication [M48.062] Procedure Details: Procedure(s): STEALTH POSTERIOR INTERBODY FUSION LUMBAR SINGLE LEVEL/ L5-S1 Posterior Lumbar Interbody Fusion - Wound Class: Clean L5 revision laminectomy with bilateral partial medial and lateral facetectomy and foraminotomy for decompression Bilateral posterior interbody fusion with Titanium cages (Adaptix) 10 mm x 24 mm - packed with local autograft bone and allograft bone (pliafix) Posterior non-segmental instrumentation at L5 and S1 - Medtronic Solara pedicle screws (6.5 mm diameter) Use of O-arm and Stealth image guidance for image guided spinal fusion procedure Anesthesia Type: General Post-Op Diagnosis Codes: * Spinal stenosis of lumbar region with neurogenic claudication [M48.062] Complications: none Additions (Drains, Specimens, Implants): Drains: Closed/Suction Drain 01/20/24 Back Accordion (Active) Drain/Tube Status To bulb suction 01/20/24 1600 Site Assessment Sutured 01/20/24 1600 Drain Securement Sutured 01/20/24 1600 Dressing Type Gauze;Occlusive 01/20/24 1600 Dressing Status Clean;Dry;Intact 01/20/24 1600 Dressing Intervention Initial dressing 01/20/24 1600 Implants: Implant Name Type Inv. Item Serial No. Community Service Officer Lot No. LRB No. Used Action GRAFT BN BN FBR 10CC FRZDR PLIAFX RPL [id number] - [id number] - [id number] Graft GRAFT BN BN FBR 10CC FRZDR PLIAFX RPL [id number] Lifenet N/A 1 Implanted SCREW BN 50MM 6.5MM MA LP 2 LD CLR CD SPNE TI COCR CD HZN - [id number] Screw SCREW BN 50MM 6.5MM MALP 2 LD CLR CD SPNE TI COCR CD HZN use MDTR SPIN N/A 1 Implanted SCREW BN 45MM 6.5MM MA LP 2 LD CLR CD SPNE TI COCR CD HZN - [id number] Screw SCREW BN 45MM 6.5MM MALP 2 LD CLR CD SPNE TI COCR CD HZN use MDTR SPIN N/A 2 Implanted SCREW BN 40X6.5MM 2 LD MA CLR - [id number] Screw SCREW BN 40X6.5MM 2 LD MA CLR use MDTR SPIN N/A 1 Implanted SPACER SPNL [id number] ADAPTIX - [id number] Other Implant SPACER SPNL [id number] ADAPTIX [employer] [place] [id number] N/A 1 Implanted SPACER SPNL [id number] ADAPTIX - [id number] Other Implant SPACER SPNL [id number] ADAPTIX [employer] [place] [id number] N/A 1 Implanted LINA SPNL CD HZN SOLERA 40MM 4.75MM PREB COCRMO CRV NS SOLERA - [id number] Lina LINA SPNL CD HZN SOLERA 40MM 4.75MM PREB COCRMO CRV NS SOLERA use MDTR SPIN N/A 2 Implanted SCREW SET TI SPNE BRK OFF CD HZN NS 4.75 MM LINA - [id number] Screw SCREW SET TI SPNE BRK OFF CD HZNNS 4.75 MM LINA use MDTR SPIN N/A 4 Implanted Estimated Blood Loss: 150 mL OB Surgical Procedure Blood Loss: Anesthesia EBL: * No values recorded between 01/20/2024 1:04 PM and 01/20/2024 4:16 PM * OB QBL: * No values recorded between 01/20/2024 1:04 PM and 01/20/2024 4:16 PM * Total IV Fluids: Intravenous fluids were administered Crystalloids 1000mls Colloids 0 mls. Condition: good Findings: lumbar spondylosis, lateral recess stenosis, partially calcified disc herniation at L5-S1 Evidence of infection was not visualized at time of surgery. EUGENE PATRICIA MD [facility]10-28-2024 Attending History and physical note* Eugene Patricia MD - 01/20/2024 12:43 PM EDT HISTORY AND PHYSICAL INTERVAL NOTE: Zeeshan Llanos 1975 [id number] H&P reviewed. The patient was examined and there are no changes to the H&P. Consent witnessed by his . Questions answered. Plan is for L5-S1 fusion with instrumentation. EUGENE PATRICIA MD Source Note - Evita Woodson, 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 - 01/06/2024 11:45 AM EDT PRE-OPERATIVE HISTORY AND PHYSICAL Exam Date: 01/06/24 Surgery Date: 01/20/24 PCP: CRYSTAL CARMONA MD Surgeon: Eugene Patricia MD CC: Lumbar spinal stenosis with neurogenic claudication. HPI: Zeeshan Llanos is a 48 y.o. male who presents for pre-op H&P for planned L5- S1 posterior interbody fusion. In a review of the record, he underwent a right sided L5-S1 microdiscectomy on 07/21/19. He continued to have pain that necessitated epidural injections. He was last seen by Dr. Patricia on 12/12/23. He had a Ct myelogram on 12/12/23 that revealed a discectomy at L5-S1 with a small recurrent disc protrusion in the same area causing compression upon the traversing left S1 nerve root. He reports that he has had back pain for many years. He has had three total surgeries to address his lumbar spine. He reports that his first was in 2012 with a left L5-S1 microdiscectomy. He had a spinal cord stimulator placed in 2017. He had a third lumbar surgery in 2019. He reports that this was on the right. He reports that he has had injections which initially helped but now no longer do. He rates his pain as a 5 to 9 on a 0 to 10 scale. His pain radiates to the left foot and lateral toes. He denies any incontinence or saddle anesthesia. 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 He reports that he has to lift 25 pounds and push up to 100 pounds. Allergies Allergen Reactions Cephalexin Itching Poison Jada Extract Facial Swelling Eye swelling Prior to Admission medications Medication Sig Start Date End Date Taking? Authorizing Provider albuterol (VENTOLIN HFA) 90 mcg/actuation inhaler Inhale 2 puffs every 4 (four) hours as needed forwheezing or shortness of breath Indications: asthma attack. Uses most days 05/28/22 Yes Not In SystemRef Prov aspirin 81 mg Take 1 tablet (81 mg total) by mouth in the morning. Indications: blood clot prevention following percutaneous coronary intervention. Ok to resume 06/18/23. 06/18/23 Yes ADAM Marc carisoprodoL (SOMA) 350 mg tablet Take 1 tablet (350 mg total) by mouth in the morning and 1 tablet(350 mg total) before bedtime. Indications: muscle spasm. 05/21/19 Yes Not In System Ref Prov dapagliflozin (FARXIGA) 10 mg tablet Take 1 tablet (10 mg total) by mouth in the morning. Indications: type 2 diabetes mellitus. HOLD 3 DAYS PRIOR TO SURGERY. Yes Not In System Ref Prov finasteride (PROSCAR) 5 mg tablet Take 1 tablet (5 mg total) by mouth in the morning. Indications: enlarged prostate with urination problem. Yes Not In System Ref Prov hydroCHLOROthiazide (HYDRODIURIL) 25 mg tablet Take 1 tablet (25 mg total) by mouth daily Indications: high blood pressure. 04/24/19 Yes Not In System Ref Prov HYDROcodone-acetaminophen (NORCO) 5-325 mg per tablet take 1 tablet by mouth every 4 hours NEEDED FOR PAIN for 7 days 10/24/23 Yes Not In System Ref Prov insulin glargine U-300 conc (TOUJEO MAX U-300 SOLOSTAR) 300 unit/mL (3 mL) insulin pen Inject 60 Unit under the skin Daily before evening meal Indications: type 2 diabetes mellitus. Yes Not In SystemRef Prov lisinopriL (PRINIVIL,ZESTRIL) 2.5 mg tablet Take 1 tablet (2.5 mg total) by mouth in the morning. Indications: high blood pressure. Yes Not In System Ref Prov meloxicam (MOBIC) 15 mg tablet Take 1 tablet (15 mg total) by mouth in the morning and 1 tablet (15mg total) before bedtime. States is holding for surgery last dose 05/30/23. Yes Not In System Ref Prov metFORMIN (GLUCOPHAGE) 500 mg tablet Take 1 tablet (500 mg total) by mouth in the morning and 1 tablet (500 mg total) in the evening. Take with meals. Indications: type 2 diabetes mellitus. Yes Not In System Ref Prov metoprolol tartrate (LOPRESSOR) 25 mg tablet Take 1 tablet (25 mg total) by mouth in the morning and 1 tablet (25 mg total) before bedtime. Indications: high blood pressure. 10/07/21 Yes Not In SystemRef Prov pantoprazole (PROTONIX) 40 mg EC tablet Take 1 tablet (40 mg total) by mouth in the morning and 1 tablet (40 mg total) before bedtime. Yes Not In System Ref Prov pregabalin (LYRICA) 150 mg capsule Take 1 capsule (150 mg total) by mouth 3 (three) times a day. Patient taking differently: Take 1 capsule (150 mg total) by mouth in the morning and 1 capsule (150 mg total) before bedtime. PAIN. 04/29/19 Yes Edy Mansfield PA-C rosuvastatin (CRESTOR) 20 mg tablet Take 1 tablet (20 mg total) by mouth in the morning. HIGH CHOLESTEROL. Yes Not In System Ref Prov STIOLTO RESPIMAT 2.5-2.5 mcg/actuation mist Take 2 puffs by mouth every morning. asthma Yes Not In System Ref Prov tamsulosin (FLOMAX) 0.4 mg capsule Take 1 capsule (0.4 mg total) by mouth in the morning. Indications: enlarged prostate with urination problem. Yes Not In System Ref Prov History : Past Medical History: Diagnosis Date Arthritis Asthma Back pain spinal cord stimulator Chronic pain disorder Coronary artery disease 2020 stents x3 Dental disease broken teeth, on ATB for dental infection started 06/05/23 Diabetes mellitus type 2, controlled [place] oral meds and insulin Fractures rt hand boxers fx GERD (gastroesophageal reflux disease) Hyperlipidemia Hypertension Injury of back Lumbar disc disease Lumbar stenosis with neurogenic claudication DC (myocardial infarction) [place] [place] 2020 DC (myocardial infarction) [place] [place] 02/24/2022 Neuropathy Psoriasis uses a cream prn Spinal stenosis of cervical region no injections to area, denies injury Visual impairment wears glasses Past Surgical History: Procedure Laterality Date BLOCK MEDIAL BRANCH NERVE Bilateral 11/16/2016 Performed by Zeeshan Huerta MD at [facility] C5-7 Cervical Arthroplasty N/A 06/10/2023 Performed by Eugene Patricia MD at [facility] CORONARY ANGIOPLASTY WITH STENT PLACEMENT 2020 CORONARY ANGIOPLASTY WITH STENT PLACEMENT 02/24/2022 HERNIA REPAIR umbilical, late 30's early 40's INJECTION BLOCK EPIDURAL CAUDAL STEROID N/A 01/12/2022 Performed by Zeeshan Huerta MD at [facility] BLOCK NERVE Bilat Cluneal Bilateral 08/30/2023 Performed by Zeeshan Huerta MD at [facility] INJE[facility] BLOCK NERVE MEDIAL BRANCH Bilat L 4/5, 5/1 Bilateral 11/16/2022 Performed by Zeeshan Huerta MD at [facility] INJE[facility] BLOCK NERVE MEDIAL BRANCH Bilat L 4/5,5/1 Bilateral 09/28/2022 Performed by Zeeshan Huerta MD at [facility] INJECTION BLOCK SACROILIAC JOINT Left 08/03/2022 Performed by Zeeshan Huerta MD at [facility] INJECTION MEDIAL BRANCH NERVE BLOCK Bilateral L 4/5, 5/1 Bilateral 01/09/2019 Performed by Zeeshan Huerta MD at [facility] NERVE BLOCK Right Sciatic Right 04/17/2019 Performed by Zeeshan Huerta MD at [facility] NERVE ROOT LEFT L5,1 Left 09/21/2016 Performed by Zeeshan Huerta MD at [facility] SI JOINT Bilateral SI Joint Bilateral 02/06/2019 Performed by Zeeshan Huerta MD at [facility] SI JOINT Bilateral SI Joint Bilateral 12/12/2018 Performed by Zeeshan Huerta MD at [facility] INJECTION STEROID EPI 1 WITH SEDATION Right L 5, 1 NR Right 05/01/2019 Performed by Zeeshan Huerta MD at [facility] INJECTION STEROID EPI 1 WITH SEDATION: L45 parmjit x 1 N/A 12/17/2016 Performed by Zeeshan Huerta MD at [facility] INSERTION TRIAL STIMULATOR SPINAL CORD N/A 03/01/2017 Performed by Zeeshan Huerta MD at [facility] Lumbar L4/5 ESIx1 N/A 11/23/2016 Performed by Zeeshan Huerta MD at [facility] LUMBAR SPINE SURGERY 10/29/2012 microdiscectomy, left side MICRO LUMBAR DISCECTOMY L5-S1 RIGHT Right 07/21/2019 Performed by Eugene Patricia MD at [facility] RADIO FREQUENCY ABLATION L2/3,3/4 Left 08/10/2016 Performed by Zeeshan Huerta MD at [facility] RADIO FREQUENCY ABLATION L2/3,3/4 Right 07/27/2016 Performed by Zeeshan Huerta MD at [facility] RADIOFREQUENCY ABLATION SPINAL Left L 4/5, 5/1 Left 03/01/2023 Performed by Zeeshan Huerta MD at [facility] RADIOFREQUENCY ABLATION SPINAL right L 4/5, 5/1 Right 03/29/2023 Performed by Zeeshan Huerta MD at [facility] Family History Problem Relation Age of Onset Epilepsy Mother Seizures Mother Hypertension Father Heart disease Father Cancer Father Diabetes Father Back Problems Father Pancreatitis Father Neck Problems Father Heart disease Brother Diabetes Brother Cancer Paternal Grandmother Heart attack Paternal Grandfather Anesthesia problems Neg Hx Bleeding Disorder Neg Hx Clotting disorder Neg Hx Prostate cancer Neg Hx Colon cancer Neg Hx Stroke Neg Hx Social History Socioeconomic History Marital status: Spouse name: Not on file Number of children: Not on file Years of education: Not on file Highest education level: Not on file Occupational History Not on file Tobacco Use Smoking status: Every Day Current packs/day: 1.50 Average packs/day: 1.5 packs/day for 31.5 years (47.2 ttl pk-yrs) Types: Cigarettes Start date: 07/15/1992 Smokeless tobacco: Former Types: Chew Quit date: 07/15/2018 Vaping Use Vaping status: Never Used Substance and Sexual Activity Alcohol use: Not Currently Drug use: No Sexual activity: Defer Other Topics Concern Not on file Social History Narrative Lives with in a one story home with no steps. Tub/shower. Has a bench. Has a walker. Has two beagles. Social Determinants of Health Financial Resource Strain: Not on file Food Insecurity: No Food Insecurity (01/06/2024) Hunger Screening Food Insecurity - Worry: Never True Food Insecurity - Inability: Never True Transportation Needs: No Transportation Needs (06/11/2023) PRAPARE - Transportation Lack of Transportation (Medical): No Lack of Transportation (Non-Medical): No Physical Activity: Not on file Stress: Not on file Social Connections: Not on file Interpersonal Safety: Not At Risk (06/11/2023) Humiliation, Afraid, Rape, and Kick questionnaire Fear of Current or Ex-Partner: No Emotionally Abused: No Physically Abused: No Sexually Abused: No Housing Instability: Low Risk (06/11/2023) Housing Instability Housing Instability: No Review of Systems Review of Systems Constitutional: Negative for fever, chills, diaphoresis, fatigue and unexpected weight change. HENT: Negative for congestion, dental problem, ear pain, hearing loss, nosebleeds, sinus pressure, sore throat, tinnitus and trouble swallowing. Eyes: Negative for pain, discharge and visual disturbance (wears glasses). Respiratory: Negative for cough, choking, shortness of breath and wheezing. Cardiovascular: Negative for chest pain, leg swelling, PND and orthopnea. Gastrointestinal: Negative for nausea, vomiting, abdominal pain, diarrhea, constipation, blood in stool, anal bleeding, rectal pain and black tarry stool. Endocrine: Negative for polydipsia, polyphagia and polyuria. Does not check blood sugars Genitourinary: Negative for bladder incontinence, dysuria, urgency, frequency, hematuria, enuresis and difficulty urinating. Musculoskeletal: Negative for myalgias, joint swelling and arthralgias. Skin: Negative for rash. Neurological: Positive for weakness. Negative for seizures, speech difficulty, numbness and headaches. Hematological: Does not bruise/bleed easily. Psychiatric/Behavioral: Positive for sleep disturbance. Negative for dysphoric mood and suicidal ideas. The patient is not nervous/anxious. Vital Signs BP 116/73 Pulse 73 Temp 36.4 C (97.5 F) Resp 16 Ht 182.9 cm (6') Wt 96 kg (211 lb 10.3 oz) SpO2 96% BMI 28.70 kg/m Labs/Diagnostics: Recent Results (from the past 24 hour(s)) Urinalysis Collection Time: 01/06/24 12:15 PM Result Value Ref Range Color YELLOW YELLOW^YELLOW Turbidity CLEAR CLEAR^CLEAR Specific gravity 1.015 1.003 - 1.035 Nitrite Negative Negative^Negative Ph urine 6.0 5.0 - 8.5 Leukocyte esterase Negative Negative^Negative Protein Negative Negative^Negative mg/dL Glucose, Ur >1,000 (A) Negative^Negative mg/dL Ketones urine Negative Negative^Negative mg/dL Urobilinogen <1.1 <1.1 eu/dL Bilirubin, urine Negative Negative^Negative Hemoglobin Negative Negative^Negative Mrsa Pcr nasal swab Collection Time: 01/06/24 12:40 PM Specimen: Nasal Result Value Ref Range Mrsa PCR Negative Negative^Negative APTT Collection Time: 01/06/24 12:55 PM Result Value Ref Range aPTT 32 26 - 37 sec Basic Metabolic Panel Collection Time: 01/06/24 12:55 PM Result Value Ref Range Sodium 134 134 - 146 mmol/L Potassium, Bld 4.1 3.5 - 5.0 mmol/L Chloride 96 (L) 98 - 109 mmol/L CO2 26 22 - 32 mmol/L Anion gap 12 5 - 15 mmol/L BUN 12 5 - 23 mg/dL Creatinine 0.63 0.60 - 1.30 mg/dL Glucose 235 (H) 65 - 99 mg/dL Calcium 9.7 8.5 - 10.5 mg/dL eGFR (CKD-EPI)non-race dependent >90 >59 ml/min/1.73sq.m CBC auto differential Collection Time: 01/06/24 12:55 PM Result Value Ref Range White Blood Cells 11.1 (H) 4.0 - 11.0 X10E9/L RBC count 5.94 (H) 4.10 - 5.70 X10E12/L Hemoglobin 17.0 13.0 - 17.0 g/dL Hematocrit 50.1 (H) 39 - 49 % MCV 84 80 - 100 fL MCH 28.7 27 - 34 pg MCHC 34.0 32 - 36 g/dL RDW 14.8 11.5 - 15.0 % Platelets 233 150 - 450 X10E9/L MPV 10.0 7 - 12 fL % neutrophils 66.6 % % lymphocytes 22.8 % % monocytes 6.3 % % eosinophils 3.4 % % Basophils 0.9 % Neutrophils Absolute (A) 7.4 (H) 1.5 - 6.6 X10E9/L Lymphocytes Absolute 2.5 1.0 - 3.5 X10E9/L Monocytes Absolute 0.7 0 - 0.9 X10E9/L Eosinophils Absolute 0.4 0.0 - 0.4 X10E9/L Basophils Absolute 0.1 0.0 - 0.2 X10E9/L Protime & INR Collection Time: 01/06/24 12:55 PM Result Value Ref Range Protime 10.4 9.8 - 13.2 sec Inr 0.9 0.8 - 1.1 Hemoglobin A1c Collection Time: 01/06/24 12:55 PM Result Value Ref Range Hemoglobin A1C 9.6 (H) 4.4 - 5.6 % Average glucose 229 mg/dL Type and screen Collection Time: 01/06/24 1:00 PM Result Value Ref Range ABO A RH Positive Antibody Screen Negative Physical Exam Physical Exam Constitutional He is oriented to person, place, and time. He appears well- developed and well-nourished. HENT Head Normocephalic and atraumatic. Ears Right Ear: Tympanic membrane, external ear and ear canal normal. Right external auditory canal: External auditory canal is normal. Left Ear: Tympanic membrane, external ear and ear canal normal. Left external auditory canal: External auditory canal is normal. Nose Nose normal. No rhinorrhea. Mucosa/turbinates: Negative for rhinorrhea. Turbinates normal Mouth/Throat Oral Cavity: normal tongue. Throat: Oropharynx: oropharynx clear and moist normal. Oropharynx negative for abnormal hard palate and abnormal oral tongue. Tonsils: right tonsil normal and left tonsil normal Able to visualize hard and soft palate Eyes: Conjunctivae and EOM are normal. Pupils are equal, round, and reactive to light. Right eye exhibits no discharge and no exudate. Left eye exhibits no discharge and no exudate. Conjunctiva: Right conjunctiva is not injected. Negative for exudate.Left conjunctiva is not injected. Negative for exudate.Negative for scleral icterus. Neck Normal range of motion. Neck supple. Carotid bruit is not present. . Negative for thyromegaly. Cardiovascular: Normal rate and regular rhythm. No murmur heard. Pulses: intact distal pulses Heart Sounds: normal heart sounds. no friction rub Pulmonary/Chest: Effort normal and breath sounds normal. He has no wheezes. Abdominal: Bowel sounds are normal. He exhibits no mass. Soft. There is no hepatosplenomegaly. There is no abdominal tenderness. There is no rebound and no guarding. Musculoskeletal: General: Tenderness present. Cervical back: Normal range of motion and neck supple. Comments: Tenderness lumbar; weakness left foot Neurological He is alert and oriented to person, place, and time. He has normal reflexes. Speech: normal speech Skin: Skin is warm and dry. Psychiatric: He has a normal mood and affect. His speech is normal and behavior is normal. Judgment and thought content normal. Assessment Lumbar spinal stenosis with neurogenic claudication. Diabetes mellitus-A1c 06/06/23=12.7 Hypertension GERD asthma Plan L5-S1 posterior interbody fusion. Follow anesthesia guidelines regarding medications Follow anesthesia guidelines regarding medications Continue current medications 5. Continue current medications ADAM Horner 01/07/24 0902 ADAM Horner 01/20/24 1243 [employer] Work Phone: [phone] 460-710610-28-2024 History and physical note* Eugene Patricia MD - 01/20/2024 12:43 PM EDT HISTORY AND PHYSICAL INTERVAL NOTE: Zeeshan Llanos 1975 [id number] H&P reviewed. The patient was examined and there are no changes to the H&P. Consent witnessed by his . Questions answered. Plan is for L5-S1 fusion with instrumentation. EUGENE PATRICIA MD Source Note - Evita Woodson, 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 - 01/06/2024 11:45 AM EDT PRE-OPERATIVE HISTORY AND PHYSICAL Exam Date: 01/06/24 Surgery Date: 01/20/24 PCP: CRYSTAL ACRMONA MD Surgeon: Eugene Patricia MD CC: Lumbar spinal stenosis with neurogenic claudication. HPI: Zeeshan Llanos is a 48 y.o. male who presents for pre-op H&P for planned L5- S1 posterior interbody fusion. In a review of the record, he underwent a right sided L5-S1 microdiscectomy on 07/21/19. He continued to have pain that necessitated epidural injections. He was last seen by Dr. Patricia on 12/12/23. He had a Ct myelogram on 12/12/23 that revealed a discectomy at L5-S1 with a small recurrent disc protrusion in the same area causing compression upon the traversing left S1 nerve root. He reports that he has had back pain for many years. He has had three total surgeries to address his lumbar spine. He reports that his first was in 2012 with a left L5-S1 microdiscectomy. He had a spinal cord stimulator placed in 2017. He had a third lumbar surgery in 2019. He reports that this was on the right. He reports that he has had injections which initially helped but now no longer do. He rates his pain as a 5 to 9 on a 0 to 10 scale. His pain radiates to the left foot and lateral toes. He denies any incontinence or saddle anesthesia. 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 He reports that he has to lift 25 pounds and push up to 100 pounds. Allergies Allergen Reactions Cephalexin Itching Poison Jada Extract Facial Swelling Eye swelling Prior to Admission medications Medication Sig Start Date End Date Taking? Authorizing Provider albuterol (VENTOLIN HFA) 90 mcg/actuation inhaler Inhale 2 puffs every 4 (four) hours as needed forwheezing or shortness of breath Indications: asthma attack. Uses most days 05/28/22 Yes Not In SystemRef Prov aspirin 81 mg Take 1 tablet (81 mg total) by mouth in the morning. Indications: blood clot prevention following percutaneous coronary intervention. Ok to resume 06/18/23. 06/18/23 Yes 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 APRN-ASHUTOSH carisoprodoL (SOMA) 350 mg tablet Take 1 tablet (350 mg total) by mouth in the morning and 1 tablet(350 mg total) before bedtime. Indications: muscle spasm. 05/21/19 Yes Not In System Ref Prov dapagliflozin (FARXIGA) 10 mg tablet Take 1 tablet (10 mg total) by mouth in the morning. Indications: type 2 diabetes mellitus. HOLD 3 DAYS PRIOR TO SURGERY. Yes Not In System Ref Prov finasteride (PROSCAR) 5 mg tablet Take 1 tablet (5 mg total) by mouth in the morning. Indications: enlarged prostate with urination problem. Yes Not In System Ref Prov hydroCHLOROthiazide (HYDRODIURIL) 25 mg tablet Take 1 tablet (25 mg total) by mouth daily Indications: high blood pressure. 04/24/19 Yes Not In System Ref Prov HYDROcodone-acetaminophen (NORCO) 5-325 mg per tablet take 1 tablet by mouth every 4 hours NEEDED FOR PAIN for 7 days 10/24/23 Yes Not In System Ref Prov insulin glargine U-300 conc (TOUJEO MAX U-300 SOLOSTAR) 300 unit/mL (3 mL) insulin pen Inject 60 Unit under the skin Daily before evening meal Indications: type 2 diabetes mellitus. Yes Not In SystemRef Prov lisinopriL (PRINIVIL,ZESTRIL) 2.5 mg tablet Take 1 tablet (2.5 mg total) by mouth in the morning. Indications: high blood pressure. Yes Not In System Ref Prov meloxicam (MOBIC) 15 mg tablet Take 1 tablet (15 mg total) by mouth in the morning and 1 tablet (15mg total) before bedtime. States is holding for surgery last dose 05/30/23. Yes Not In System Ref Prov metFORMIN (GLUCOPHAGE) 500 mg tablet Take 1 tablet (500 mg total) by mouth in the morning and 1 tablet (500 mg total) in the evening. Take with meals. Indications: type 2 diabetes mellitus. Yes Not In System Ref Prov metoprolol tartrate (LOPRESSOR) 25 mg tablet Take 1 tablet (25 mg total) by mouth in the morning and 1 tablet (25 mg total) before bedtime. Indications: high blood pressure. 10/07/21 Yes Not In SystemRef Prov pantoprazole (PROTONIX) 40 mg EC tablet Take 1 tablet (40 mg total) by mouth in the morning and 1 tablet (40 mg total) before bedtime. Yes Not In System Ref Prov pregabalin (LYRICA) 150 mg capsule Take 1 capsule (150 mg total) by mouth 3 (three) times a day. Patient taking differently: Take 1 capsule (150 mg total) by mouth in the morning and 1 capsule (150 mg total) before bedtime. PAIN. 04/29/19 Yes Edy Mansfield PA-C rosuvastatin (CRESTOR) 20 mg tablet Take 1 tablet (20 mg total) by mouth in the morning. HIGH CHOLESTEROL. Yes Not In System Ref Prov STIOLTO RESPIMAT 2.5-2.5 mcg/actuation mist Take 2 puffs by mouth every morning. asthma Yes Not In System Ref Prov tamsulosin (FLOMAX) 0.4 mg capsule Take 1 capsule (0.4 mg total) by mouth in the morning. Indications: enlarged prostate with urination problem. Yes Not In System Ref Prov History : Past Medical History: Diagnosis Date Arthritis Asthma Back pain spinal cord stimulator Chronic pain disorder Coronary artery disease 2020 stents x3 Dental disease broken teeth, on ATB for dental infection started 06/05/23 Diabetes mellitus type 2, controlled [place] oral meds and insulin Fractures rt hand boxers fx GERD (gastroesophageal reflux disease) Hyperlipidemia Hypertension Injury of back Lumbar disc disease Lumbar stenosis with neurogenic claudication DC (myocardial infarction) [place] 2020 DC (myocardial infarction) [place] 02/24/2022 Neuropathy Psoriasis uses a cream prn Spinal stenosis of cervical region no injections to area, denies injury Visual impairment wears glasses Past Surgical History: Procedure Laterality Date BLOCK MEDIAL BRANCH NERVE Bilateral 11/16/2016 Performed by Zeeshan Huerta MD at [facility] C5-7 Cervical Arthroplasty N/A 06/10/2023 Performed by Eugene Patricia MD at [facility] CORONARY ANGIOPLASTY WITH STENT PLACEMENT 2020 CORONARY ANGIOPLASTY WITH STENT PLACEMENT 02/24/2022 HERNIA REPAIR umbilical, late 30's early 40's INJECTION BLOCK EPIDURAL CAUDAL STEROID N/A 01/12/2022 Performed by Zeeshan Huerta MD at [facility] INJECTION BLOCK NERVE Bilat Cluneal Bilateral 08/30/2023 Performed by Zeeshan Huerta MD at [facility] INJECTION BLOCK NERVE MEDIAL BRANCH Bilat L 4/5, 5/1 Bilateral 11/16/2022 Performed by Zeeshan Huerta MD at [facility] INJECTION BLOCK NERVE MEDIAL BRANCH Bilat L 4/5,5/1 Bilateral 09/28/2022 Performed by Zeeshan Huerta MD at [facility] INJECTION BLOCK SACROILIAC JOINT Left 08/03/2022 Performed by Zeeshan Huerta MD at [facility] MEDIAL BRANCH NERVE BLOCK Bilateral L 4/5, 5/1 Bilateral 01/09/2019 Performed by Zeeshan Huerta MD at [facility] NERVE BLOCK Right Sciatic Right 04/17/2019 Performed by Zeeshan Huerta MD at [facility] NERVE ROOT LEFT L5,1 Left 09/21/2016 Performed by Zeeshan Huerta MD at [facility] SI JOINT Bilateral SI Joint Bilateral 02/06/2019 Performed by Zeeshan Huerta MD at [facility] SI JOINT Bilateral SI Joint Bilateral 12/12/2018 Performed by Zeeshan Huerta MD at [facility] INJECTION STEROID EPI 1 WITH SEDATION Right L 5, 1 NR Right 05/01/2019 Performed by Zeeshan Huerta MD at [facility] INJECTION STEROID EPI 1 WITH SEDATION: L45 parmjit x 1 N/A 12/17/2016 Performed by Zeeshan Huerta MD at [facility] INSERTION TRIAL STIMULATOR SPINAL CORD N/A 03/01/2017 Performed by Zeeshan Huerta MD at [facility] Lumbar L4/5 ESIx1 N/A 11/23/2016 Performed by Zeeshan Huerta MD at [facility] LUMBAR SPINE SURGERY 10/29/2012 microdiscectomy, left side MICRO LUMBAR DISCECTOMY L5-S1 RIGHT Right 07/21/2019 Performed by Eugene Patricia MD at [facility] RADIO FREQUENCY ABLATION L2/3,3/4 Left 08/10/2016 Performed by Zeeshan Huerta MD at [facility] RADIO FREQUENCY ABLATION L2/3,3/4 Right 07/27/2016 Performed by Zeeshan Huerta MD at [facility] RADIOFREQUENCY ABLATION SPINAL Left L 4/5, 5/1 Left 03/01/2023 Performed by Zeeshan Huerta MD at [facility] RADIOFREQUENCY ABLATION SPINAL right L 4/5, 5/1 Right 03/29/2023 Performed by Zeeshan Huerta MD at [facility] Family History Problem Relation Age of Onset Epilepsy Mother Seizures Mother Hypertension Father Heart disease Father Cancer Father Diabetes Father Back Problems Father Pancreatitis Father Neck Problems Father Heart disease Brother Diabetes Brother Cancer Paternal Grandmother Heart attack Paternal Grandfather Anesthesia problems Neg Hx Bleeding Disorder Neg Hx Clotting disorder Neg Hx Prostate cancer Neg Hx Colon cancer Neg Hx Stroke Neg Hx Social History Socioeconomic History Marital status: Spouse name: Not on file Number of children: Not on file Years of education: Not on file Highest education level: Not on file Occupational History Not on file Tobacco Use Smoking status: Every Day Current packs/day: 1.50 Average packs/day: 1.5 packs/day for 31.5 years (47.2 ttl pk-yrs) Types: Cigarettes Start date: 07/15/1992 Smokeless tobacco: Former Types: Chew Quit date: 07/15/2018 Vaping Use Vaping status: Never Used Substance and Sexual Activity Alcohol use: Not Currently Drug use: No Sexual activity: Defer Other Topics Concern Not on file Social History Narrative Lives with in a one story home with no steps. Tub/shower. Has a bench. Has a walker. Has two beagles. Social Determinants of Health Financial Resource Strain: Not on file Food Insecurity: No Food Insecurity (01/06/2024) Hunger Screening Food Insecurity - Worry: Never True Food Insecurity - Inability: Never True Transportation Needs: No Transportation Needs (06/11/2023) PRAPARE - Transportation Lack of Transportation (Medical): No Lack of Transportation (Non-Medical): No Physical Activity: Not on file Stress: Not on file Social Connections: Not on file Interpersonal Safety: Not At Risk (06/11/2023) Humiliation, Afraid, Rape, and Kick questionnaire Fear of Current or Ex-Partner: No Emotionally Abused: No Physically Abused: No Sexually Abused: No Housing Instability: Low Risk (06/11/2023) Housing Instability Housing Instability: No Review of Systems Review of Systems Constitutional: Negative for fever, chills, diaphoresis, fatigue and unexpected weight change. HENT: Negative for congestion, dental problem, ear pain, hearing loss, nosebleeds, sinus pressure, sore throat, tinnitus and trouble swallowing. Eyes: Negative for pain, discharge and visual disturbance (wears glasses). Respiratory: Negative for cough, choking, shortness of breath and wheezing. Cardiovascular: Negative for chest pain, leg swelling, PND and orthopnea. Gastrointestinal: Negative for nausea, vomiting, abdominal pain, diarrhea, constipation, blood in stool, anal bleeding, rectal pain and black tarry stool. Endocrine: Negative for polydipsia, polyphagia and polyuria. Does not check blood sugars Genitourinary: Negative for bladder incontinence, dysuria, urgency, frequency, hematuria, enuresis and difficulty urinating. Musculoskeletal: Negative for myalgias, joint swelling and arthralgias. Skin: Negative for rash. Neurological: Positive for weakness. Negative for seizures, speech difficulty, numbness and headaches. Hematological: Does not bruise/bleed easily. Psychiatric/Behavioral: Positive for sleep disturbance. Negative for dysphoric mood and suicidal ideas. The patient is not nervous/anxious. Vital Signs BP 116/73 Pulse 73 Temp 36.4 C (97.5 F) Resp 16 Ht 182.9 cm (6') Wt 96 kg (211 lb 10.3 oz) SpO2 96% BMI 28.70 kg/m Labs/Diagnostics: Recent Results (from the past 24 hour(s)) Urinalysis Collection Time: 01/06/24 12:15 PM Result Value Ref Range Color YELLOW YELLOW^YELLOW Turbidity CLEAR CLEAR^CLEAR Specific gravity 1.015 1.003 - 1.035 Nitrite Negative Negative^Negative Ph urine 6.0 5.0 - 8.5 Leukocyte esterase Negative Negative^Negative Protein Negative Negative^Negative mg/dL Glucose, Ur >1,000 (A) Negative^Negative mg/dL Ketones urine Negative Negative^Negative mg/dL Urobilinogen <1.1 <1.1 eu/dL Bilirubin, urine Negative Negative^Negative Hemoglobin Negative Negative^Negative Mrsa Pcr nasal swab Collection Time: 01/06/24 12:40 PM Specimen: Nasal Result Value Ref Range Mrsa PCR Negative Negative^Negative APTT Collection Time: 01/06/24 12:55 PM Result Value Ref Range aPTT 32 26 - 37 sec Basic Metabolic Panel Collection Time: 01/06/24 12:55 PM Result Value Ref Range Sodium 134 134 - 146 mmol/L Potassium, Bld 4.1 3.5 - 5.0 mmol/L Chloride 96 (L) 98 - 109 mmol/L CO2 26 22 - 32 mmol/L Anion gap 12 5 - 15 mmol/L BUN 12 5 - 23 mg/dL Creatinine 0.63 0.60 - 1.30 mg/dL Glucose 235 (H) 65 - 99 mg/dL Calcium 9.7 8.5 - 10.5 mg/dL eGFR (CKD-EPI)non-race dependent >90 >59 ml/min/1.73sq.m CBC auto differential Collection Time: 01/06/24 12:55 PM Result Value Ref Range White Blood Cells 11.1 (H) 4.0 - 11.0 X10E9/L RBC count 5.94 (H) 4.10 - 5.70 X10E12/L Hemoglobin 17.0 13.0 - 17.0 g/dL Hematocrit 50.1 (H) 39 - 49 % MCV 84 80 - 100 fL MCH 28.7 27 - 34 pg MCHC 34.0 32 - 36 g/dL RDW 14.8 11.5 - 15.0 % Platelets 233 150 - 450 X10E9/L MPV 10.0 7 - 12 fL % neutrophils 66.6 % % lymphocytes 22.8 % % monocytes 6.3 % % eosinophils 3.4 % % Basophils 0.9 % Neutrophils Absolute (A) 7.4 (H) 1.5 - 6.6 X10E9/L Lymphocytes Absolute 2.5 1.0 - 3.5 X10E9/L Monocytes Absolute 0.7 0 - 0.9 X10E9/L Eosinophils Absolute 0.4 0.0 - 0.4 X10E9/L Basophils Absolute 0.1 0.0 - 0.2 X10E9/L Protime & INR Collection Time: 01/06/24 12:55 PM Result Value Ref Range Protime 10.4 9.8 - 13.2 sec Inr 0.9 0.8 - 1.1 Hemoglobin A1c Collection Time: 01/06/24 12:55 PM Result Value Ref Range Hemoglobin A1C 9.6 (H) 4.4 - 5.6 % Average glucose 229 mg/dL Type and screen Collection Time: 01/06/24 1:00 PM Result Value Ref Range ABO A RH Positive Antibody Screen Negative Physical Exam Physical Exam Constitutional He is oriented to person, place, and time. He appears well- developed and well-nourished. HENT Head Normocephalic and atraumatic. Ears Right Ear: Tympanic membrane, external ear and ear canal normal. Right external auditory canal: External auditory canal is normal. Left Ear: Tympanic membrane, external ear and ear canal normal. Left external auditory canal: External auditory canal is normal. Nose Nose normal. No rhinorrhea. Mucosa/turbinates: Negative for rhinorrhea. Turbinates normal Mouth/Throat Oral Cavity: normal tongue. Throat: Oropharynx: oropharynx clear and moist normal. Oropharynx negative for abnormal hard palate and abnormal oral tongue. Tonsils: right tonsil normal and left tonsil normal Able to visualize hard and soft palate Eyes: Conjunctivae and EOM are normal. Pupils are equal, round, and reactive to light. Right eye exhibits no discharge and no exudate. Left eye exhibits no discharge and no exudate. Conjunctiva: Right conjunctiva is not injected. Negative for exudate.Left conjunctiva is not injected. Negative for exudate.Negative for scleral icterus. Neck Normal range of motion. Neck supple. Carotid bruit is not present. . Negative for thyromegaly. Cardiovascular: Normal rate and regular rhythm. No murmur heard. Pulses: intact distal pulses Heart Sounds: normal heart sounds. no friction rub Pulmonary/Chest: Effort normal and breath sounds normal. He has no wheezes. Abdominal: Bowel sounds are normal. He exhibits no mass. Soft. There is no hepatosplenomegaly. There is no abdominal tenderness. There is no rebound and no guarding. Musculoskeletal: General: Tenderness present. Cervical back: Normal range of motion and neck supple. Comments: Tenderness lumbar; weakness left foot Neurological He is alert and oriented to person, place, and time. He has normal reflexes. Speech: normal speech Skin: Skin is warm and dry. Psychiatric: He has a normal mood and affect. His speech is normal and behavior is normal. Judgment and thought content normal. Assessment Lumbar spinal stenosis with neurogenic claudication. Diabetes mellitus-A1c 06/06/23=12.7 Hypertension GERD asthma Plan L5-S1 posterior interbody fusion. Follow anesthesia guidelines regarding medications Follow anesthesia guidelines regarding medications Continue current medications 5. Continue current medications ADAM Horner 01/07/24 [id number] ADAM Horner 01/20/24 [id number] [facility] NoteXR CHEST 2 VWS Clinical history: Preoperative evaluation, spinal stenosis lumbar region with neurogenic claudication. Comparisons: None Findings: PA and lateral chest radiographs were obtained. Cardiomediastinal silhouette and pulmonary vasculature appear within normal limits. Lungs appear clear. There is no evidence for pleural effusion nor pneumothorax. IMPRESSION: No evidence for acute cardiopulmonary disease. 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 HPI: Zeeshan Llanos is a 48 y.o. male who presents for pre-op H&P for planned L5- S1 posterior interbody fusion. In a review of the record, he underwent a right sided L5-S1 microdiscectomy on 07/21/19. He continued to have pain that necessitated epidural injections. He was last seen by Dr. Patricia on 12/12/23. He had a Ct myelogram on 12/12/23 that revealed a discectomy at L5-S1 with a small recurrent disc protrusion in the same area causing compression upon the traversing left S1 nerve root. He reports that he has had back pain for many years. He has had three total surgeries to address his lumbar spine. He reports that his first was in 2012 with a left L5-S1 microdiscectomy. He had a spinal cord stimulator placed in 2017. He had a third lumbar surgery in 2019. He reports that this was on the right. He reports that he has had injections which initially helped but now no longer do. He rates his pain as a 5 to 9 on a 0 to 10 scale. His pain radiates to the left foot and lateral toes. He denies any incontinence or saddle anesthesia. 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 He reports that he has to lift 25 pounds and push up to 100 pounds. Allergies Allergen Reactions Cephalexin Itching Poison Jada Extract Facial Swelling Eye swelling Prior to Admission medications Medication Sig Start Date End Date Taking? Authorizing Provider albuterol (VENTOLIN HFA) 90 mcg/actuation inhaler Inhale 2 puffs every 4 (four) hours as needed forwheezing or shortness of breath Indications: asthma attack. Uses most days 05/28/22 Yes Not In SystemRef Prov aspirin 81 mg Take 1 tablet (81 mg total) by mouth in the morning. Indications: blood clot prevention following percutaneous coronary intervention. Ok to resume 06/18/23. 06/18/23 Yes ADAM Marc carisoprodoL (SOMA) 350 mg tablet Take 1 tablet (350 mg total) by mouth in the morning and 1 tablet(350 mg total) before bedtime. Indications: muscle spasm. 05/21/19 Yes Not In System Ref Prov dapagliflozin (FARXIGA) 10 mg tablet Take 1 tablet (10 mg total) by mouth in the morning. Indications: type 2 diabetes mellitus. HOLD 3 DAYS PRIOR TO SURGERY. Yes Not In System Ref Prov finasteride (PROSCAR) 5 mg tablet Take 1 tablet (5 mg total) by mouth in the morning. Indications: enlarged prostate with urination problem. Yes Not In System Ref Prov hydroCHLOROthiazide (HYDRODIURIL) 25 mg tablet Take 1 tablet (25 mg total) by mouth daily Indications: high blood pressure. 04/24/19 Yes Not In System Ref Prov HYDROcodone-acetaminophen (NORCO) 5-325 mg per tablet take 1 tablet by mouth every 4 hours NEEDED FOR PAIN for 7 days 10/24/23 Yes Not In System Ref Prov insulin glargine U-300 conc (TOUJEO MAX U-300 SOLOSTAR) 300 unit/mL (3 mL) insulin pen Inject 60 Unit under the skin Daily before evening meal Indications: type 2 diabetes mellitus. Yes Not In SystemRef Prov lisinopriL (PRINIVIL,ZESTRIL) 2.5 mg tablet Take 1 tablet (2.5 mg total) by mouth in the morning. Indications: high blood pressure. Yes Not In System Ref Prov meloxicam (MOBIC) 15 mg tablet Take 1 tablet (15 mg total) by mouth in the morning and 1 tablet (15mg total) before bedtime. States is holding for surgery last dose 05/30/23. Yes Not In System Ref Prov metFORMIN (GLUCOPHAGE) 500 mg tablet Take 1 tablet (500 mg total) by mouth in the morning and 1 tablet (500 mg total) in the evening. Take with meals. Indications: type 2 diabetes mellitus. Yes Not In System Ref Prov metoprolol tartrate (LOPRESSOR) 25 mg tablet Take 1 tablet (25 mg total) by mouth in the morning and 1 tablet (25 mg total) before bedtime. Indications: high blood pressure. 10/07/21 Yes Not In SystemRef Prov pantoprazole (PROTONIX) 40 mg EC tablet Take 1 tablet (40 mg total) by mouth in the morning and 1 tablet (40 mg total) before bedtime. Yes Not In System Ref Prov pregabalin (LYRICA) 150 mg capsule Take 1 capsule (150 mg total) by mouth 3 (three) times a day. Patient taking differently: Take 1 capsule (150 mg total) by mouth in the morning and 1 capsule (150 mg total) before bedtime. PAIN. 04/29/19 Yes Edy Mansfield PA-C rosuvastatin (CRESTOR) 20 mg tablet Take 1 tablet (20 mg total) by mouth in the morning. HIGH CHOLESTEROL. Yes Not In System Ref Prov STIOLTO RESPIMAT 2.5-2.5 mcg/actuation mist Take 2 puffs by mouth every morning. asthma Yes Not In System Ref Prov tamsulosin (FLOMAX) 0.4 mg capsule Take 1 capsule (0.4 mg total) by mouth in the morning. Indications: enlarged prostate with urination problem. Yes Not In System Ref Prov History : Past Medical History: Diagnosis Date Arthritis Asthma Back pain spinal cord stimulator Chronic pain disorder Coronary artery disease 2020 stents x3 Dental disease broken teeth, on ATB for dental infection started 06/05/23 Diabetes mellitus type 2, controlled [place] oral meds and insulin Fractures rt hand boxers fx GERD (gastroesophageal reflux disease) Hyperlipidemia Hypertension Injury of back Lumbar disc disease Lumbar stenosis with neurogenic claudication DC (myocardial infarction) [place] 2020 DC (myocardial infarction) [place] 02/24/2022 Neuropathy Psoriasis uses a cream prn Spinal stenosis of cervical region no injections to area, denies injury Visual impairment wears glasses Past Surgical History: Procedure Laterality Date BLOCK MEDIAL BRANCH NERVE Bilateral 11/16/2016 Performed by Zeeshan Huerta MD at [facility] C5-7 Cervical Arthroplasty N/A 06/10/2023 Performed by Eugene Patricia MD at [facility] CORONARY ANGIOPLASTY WITH STENT PLACEMENT 2020 CORONARY ANGIOPLASTY WITH STENT PLACEMENT 02/24/2022 HERNIA REPAIR umbilical, late 30's early 40's INJECTION BLOCK EPIDURAL CAUDAL STEROID N/A 01/12/2022 Performed by Zeeshan Huerta MD at [facility] INJECTION BLOCK NERVE Bilat Cluneal Bilateral 08/30/2023 Performed by Zeeshan Huerta MD at [facility] INJECTION BLOCK NERVE MEDIAL BRANCH Bilat L 4/5, 5/1 Bilateral 11/16/2022 Performed by Zeeshan Huerta MD at [facility] INJECTION BLOCK NERVE MEDIAL BRANCH Bilat L 4/5,5/1 Bilateral 09/28/2022 Performed by Zeeshan Huerta MD at [facility] INJECTION BLOCK SACROILIAC JOINT Left 08/03/2022 Performed by Zeeshan Huerta MD at [facility] INJECTION MEDIAL BRANCH NERVE BLOCK Bilateral L 4/5, 5/1 Bilateral 01/09/2019 Performed by Zeeshan Huerta MD at [facility] INJECTION NERVE BLOCK Right Sciatic Right 04/17/2019 Performed by Zeeshan Huerta MD at [facility] INJECTION NERVE ROOT LEFT L5,1 Left 09/21/2016 Performed by Zeeshan Huerta MD at [facility] INJECTION SI JOINT Bilateral SI Joint Bilateral 02/06/2019 Performed by Zeeshan Huerta MD at [facility] INJECTION SI JOINT Bilateral SI Joint Bilateral 12/12/2018 Performed by Zeeshan Huerta MD at [facility] INJECTION STEROID EPI 1 WITH SEDATION Right L 5, 1 NR Right 05/01/2019 Performed by Zeeshan Huerta MD at [facility] INJECTION STEROID EPI 1 WITH SEDATION: L45 parmjit x 1 N/A 12/17/2016 Performed by Zeeshan Huerta MD at [facility] INSERTION TRIAL STIMULATOR SPINAL CORD N/A 03/01/2017 Performed by Zeeshan Huerta MD at [facility] Lumbar L4/5 ESIx1 N/A 11/23/2016 Performed by Zeeshan Huerta MD at [facility] LUMBAR SPINE SURGERY 10/29/2012 microdiscectomy, left side MICRO LUMBAR DISCECTOMY L5-S1 RIGHT Right 07/21/2019 Performed by Eugene Patricia MD at [facility] RADIO FREQUENCY ABLATION L2/3,3/4 Left 08/10/2016 Performed by Zeeshan Huerta MD at [facility] RADIO FREQUENCY ABLATION L2/3,3/4 Right 07/27/2016 Performed by Zeeshan Huerta MD at [facility] RADIOFREQUENCY ABLATION SPINAL Left L 4/5, 5/1 Left 03/01/2023 Performed by Zeeshan Huerta MD at [facility] RADIOFREQUENCY ABLATION SPINAL right L 4/5, 5/ Right 03/29/2023 Performed by Zeeshan Huerta MD at [facility] Family History Problem Relation Age of Onset Epilepsy Mother Seizures Mother Hypertension Father Heart disease Father Cancer Father Diabetes Father Back Problems Father Pancreatitis Father Neck Problems Father Heart disease Brother Diabetes Brother Cancer Paternal Grandmother Heart attack Paternal Grandfather Anesthesia problems Neg Hx Bleeding Disorder Neg Hx Clotting disorder Neg Hx Prostate cancer Neg Hx Colon cancer Neg Hx Stroke Neg Hx Social History Socioeconomic History Marital status: Spouse name: Not on file Number of children: Not on file Years of education: Not on file Highest education level: Not on file Occupational History Not on file Tobacco Use Smoking status: Every Day Current packs/day: 1.50 Average packs/day: 1.5 packs/day for 31.5 years (47.2 ttl pk-yrs) Types: Cigarettes Start date: 07/15/1992 Smokeless tobacco: Former Types: Chew Quit date: 07/15/2018 Vaping Use Vaping status: Never Used Substance and Sexual Activity Alcohol use: Not Currently Drug use: No Sexual activity: Defer Other Topics Concern Not on file Social History Narrative Lives with in a one story home with no steps. Tub/shower. Has a bench. Has a walker. Has two beagles. Social Determinants of Health Financial Resource Strain: Not on file Food Insecurity: No Food Insecurity (01/06/2024) Hunger Screening Food Insecurity - Worry: Never True Food Insecurity - Inability: Never True Transportation Needs: No Transportation Needs (06/11/2023) PRAPARE - Transportation Lack of Transportation (Medical): No Lack of Transportation (Non-Medical): No Physical Activity: Not on file Stress: Not on file Social Connections: Not on file Interpersonal Safety: Not At Risk (06/11/2023) Humiliation, Afraid, Rape, and Kick questionnaire Fear of Current or Ex-Partner: No Emotionally Abused: No Physically Abused: No Sexually Abused: No Housing Instability: Low Risk (06/11/2023) Housing Instability Housing Instability: No Review of Systems Review of Systems Constitutional: Negative for fever, chills, diaphoresis, fatigue and unexpected weight change. HENT: Negative for congestion, dental problem, ear pain, hearing loss, nosebleeds, sinus pressure, sore throat, tinnitus and trouble swallowing. Eyes: Negative for pain, discharge and visual disturbance (wears glasses). Respiratory: Negative for cough, choking, shortness of breath and wheezing. Cardiovascular: Negative for chest pain, leg swelling, PND and orthopnea. Gastrointestinal: Negative for nausea, vomiting, abdominal pain, diarrhea, constipation, blood in stool, anal bleeding, rectal pain and black tarry stool. Endocrine: Negative for polydipsia, polyphagia and polyuria. Does not check blood sugars Genitourinary: Negative for bladder incontinence, dysuria, urgency, frequency, hematuria, enuresis and difficulty urinating. Musculoskeletal: Negative for myalgias, joint swelling and arthralgias. Skin: Negative for rash. Neurological: Positive for weakness. Negative for seizures, speech difficulty, numbness and headaches. Hematological: Does not bruise/bleed easily. Psychiatric/Behavioral: Positive for sleep disturbance. Negative for dysphoric mood and suicidal ideas. The patient is not nervous/anxious. Vital Signs BP 116/73 Pulse 73 Temp 36.4 C (97.5 F) Resp 16 Ht 182.9 cm (6') Wt 96 kg (211 lb 10.3 oz) SpO2 96% BMI 28.70 kg/m Labs/Diagnostics: Recent Results (from the past 24 hour(s)) Urinalysis Collection Time: 01/06/24 12:15 PM Result Value Ref Range Color YELLOW YELLOW^YELLOW Turbidity CLEAR CLEAR^CLEAR Specific gravity 1.015 1.003 - 1.035 Nitrite Negative Negative^Negative Ph urine 6.0 5.0 - 8.5 Leukocyte esterase Negative Negative^Negative Protein Negative Negative^Negative mg/dL Glucose, Ur >1,000 (A) Negative^Negative mg/dL Ketones urine Negative Negative^Negative mg/dL Urobilinogen <1.1 <1.1 eu/dL Bilirubin, urine Negative Negative^Negative Hemoglobin Negative Negative^Negative Mrsa Pcr nasal swab Collection Time: 01/06/24 12:40 PM Specimen: Nasal Result Value Ref Range Mrsa PCR Negative Negative^Negative APTT Collection Time: 01/06/24 12:55 PM Result Value Ref Range aPTT 32 26 - 37 sec Basic Metabolic Panel Collection Time: 01/06/24 12:55 PM Result Value Ref Range Sodium 134 134 - 146 mmol/L Potassium, Bld 4.1 3.5 - 5.0 mmol/L Chloride 96 (L) 98 - 109 mmol/L CO2 26 22 - 32 mmol/L Anion gap 12 5 - 15 mmol/L BUN 12 5 - 23 mg/dL Creatinine 0.63 0.60 - 1.30 mg/dL Glucose 235 (H) 65 - 99 mg/dL Calcium 9.7 8.5 - 10.5 mg/dL eGFR (CKD-EPI)non-race dependent >90 >59 ml/min/1.73sq.m CBC auto differential Collection Time: 01/06/24 12:55 PM Result Value Ref Range White Blood Cells 11.1 (H) 4.0 - 11.0 X10E9/L RBC count 5.94 (H) 4.10 - 5.70 X10E12/L Hemoglobin 17.0 13.0 - 17.0 g/dL Hematocrit 50.1 (H) 39 - 49 % MCV 84 80 - 100 fL MCH 28.7 27 - 34 pg MCHC 34.0 32 - 36 g/dL RDW 14.8 11.5 - 15.0 % Platelets 233 150 - 450 X10E9/L MPV 10.0 7 - 12 fL % neutrophils 66.6 % % lymphocytes 22.8 % % monocytes 6.3 % % eosinophils 3.4 % % Basophils 0.9 % Neutrophils Absolute (A) 7.4 (H) 1.5 - 6.6 X10E9/L Lymphocytes Absolute 2.5 1.0 - 3.5 X10E9/L Monocytes Absolute 0.7 0 - 0.9 X10E9/L Eosinophils Absolute 0.4 0.0 - 0.4 X10E9/L Basophils Absolute 0.1 0.0 - 0.2 X10E9/L Protime & INR Collection Time: 01/06/24 12:55 PM Result Value Ref Range Protime 10.4 9.8 - 13.2 sec Inr 0.9 0.8 - 1.1 Hemoglobin A1c Collection Time: 01/06/24 12:55 PM Result Value Ref Range Hemoglobin A1C 9.6 (H) 4.4 - 5.6 % Average glucose 229 mg/dL Type and screen Collection Time: 01/06/24 1:00 PM Result Value Ref Range ABO A RH Positive Antibody Screen Negative Physical Exam Physical Exam Constitutional He is oriented to person, place, and time. He appears well- developed and well-nourished. HENT Head Normocephalic and atraumatic. Ears Right Ear: Tympanic membrane, external ear and ear canal normal. Right external auditory canal: External auditory canal is normal. Left Ear: Tympanic membrane, external ear and ear canal normal. Left external auditory canal: External auditory canal is normal. Nose Nose normal. No rhinorrhea. Mucosa/turbinates: Negative for rhinorrhea. Turbinates normal Mouth/Throat Oral Cavity: normal tongue. Throat: Oropharynx: oropharynx clear and moist normal. Oropharynx negative for abnormal hard palate and abnormal oral tongue. Tonsils: right tonsil normal and left tonsil normal Able to visualize hard and soft palate Eyes: Conjunctivae and EOM are normal. Pupils are equal, round, and reactive to light. Right eye exhibits no discharge and no exudate. Left eye exhibits no discharge and no exudate. Conjunctiva: Right conjunctiva is not injected. Negative for exudate.Left conjunctiva is not injected. Negative for exudate.Negative for scleral icterus. Neck Normal range of motion. Neck supple. Carotid bruit is not present. . Negative for thyromegaly. Cardiovascular: Normal rate and regular rhythm. No murmur heard. Pulses: intact distal pulses Heart Sounds: normal heart sounds. no friction rub Pulmonary/Chest: Effort normal and breath sounds normal. He has no wheezes. Abdominal: Bowel sounds are normal. He exhibits no mass. Soft. There is no hepatosplenomegaly. There is no abdominal tenderness. There is no rebound and no guarding. Musculoskeletal: General: Tenderness present. Cervical back: Normal range of motion and neck supple. Comments: Tenderness lumbar; weakness left foot Neurological He is alert and oriented to person, place, and time. He has normal reflexes. Speech: normal speech Skin: Skin is warm and dry. Psychiatric: He has a normal mood and affect. His speech is normal and behavior is normal. Judgment and thought content normal. Assessment Lumbar spinal stenosis with neurogenic claudication. Diabetes mellitus-A1c 06/06/23=12.7 Hypertension GERD asthma Plan L5-S1 posterior interbody fusion. Follow anesthesia guidelines regarding medications Follow anesthesia guidelines regarding medications Continue current medications 5. Continue current medications ADAM Horner 01/07/24 [address] Work Phone: [phone] History and physical note* ADAM Horner - 01/06/2024 11:45 AM EDT PRE-OPERATIVE HISTORY AND PHYSICAL Exam Date: 01/06/24 Surgery Date: 01/20/24 PCP: CRYSTAL CARMONA MD Surgeon: Eugene Patricia MD CC: Lumbar spinal stenosis with neurogenic claudication. HPI: Zeeshan Llanos is a 48 y.o. male who presents for pre-op H&P for planned L5- S1 posterior interbody fusion. In a review of the record, he underwent a right sided L5-S1 microdiscectomy on 07/21/19. He continued to have pain that necessitated epidural injections. He was last seen by Dr. Patricia on 12/12/23. He had a Ct myelogram on 12/12/23 that revealed a discectomy at L5-S1 with a small recurrent disc protrusion in the same area causing compression upon the traversing left S1 nerve root. He reports that he has had back pain for many years. He has had three total surgeries to address his lumbar spine. He reports that his first was in 2012 with a left L5-S1 microdiscectomy. He had a spinal cord stimulator placed in 2018. He had a third lumbar surgery in 2019. He reports that this was on the right. He reports that he has had injections which initially helped but now no longer do. He rates his pain as a 5 to 9 on a 0 to 10 scale. His pain radiates to the left foot and lateral toes. He denies any incontinence or saddle anesthesia. 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 He reports that he has to lift 25 pounds and push up to 100 pounds. Allergies Allergen Reactions Cephalexin Itching Poison Jada Extract Facial Swelling Eye swelling Prior to Admission medications Medication Sig Start Date End Date Taking? Authorizing Provider albuterol (VENTOLIN HFA) 90 mcg/actuation inhaler Inhale 2 puffs every 4 (four) hours as needed forwheezing or shortness of breath Indications: asthma attack. Uses most days 05/28/22 Yes Not In SystemRef Prov aspirin 81 mg Take 1 tablet (81 mg total) by mouth in the morning. Indications: blood clot prevention following percutaneous coronary intervention. Ok to resume 06/18/23. 06/18/23 Yes Rentaa Santos APRN-ASHUTOSH carisoprodoL (SOMA) 350 mg tablet Take 1 tablet (350 mg total) by mouth in the morning and 1 tablet(350 mg total) before bedtime. Indications: muscle spasm. 05/21/19 Yes Not In System Ref Prov dapagliflozin (FARXIGA) 10 mg tablet Take 1 tablet (10 mg total) by mouth in the morning. Indications: type 2 diabetes mellitus. HOLD 3 DAYS PRIOR TO SURGERY. Yes Not In System Ref Prov finasteride (PROSCAR) 5 mg tablet Take 1 tablet (5 mg total) by mouth in the morning. Indications: enlarged prostate with urination problem. Yes Not In System Ref Prov hydroCHLOROthiazide (HYDRODIURIL) 25 mg tablet Take 1 tablet (25 mg total) by mouth daily Indications: high blood pressure. 04/24/19 Yes Not In System Ref Prov HYDROcodone-acetaminophen (NORCO) 5-325 mg per tablet take 1 tablet by mouth every 4 hours NEEDED FOR PAIN for 7 days 10/24/23 Yes Not In System Ref Prov insulin glargine U-300 conc (TOUJEO MAX U-300 SOLOSTAR) 300 unit/mL (3 mL) insulin pen Inject 60 Unit under the skin Daily before evening meal Indications: type 2 diabetes mellitus. Yes Not In SystemRef Prov lisinopriL (PRINIVIL,ZESTRIL) 2.5 mg tablet Take 1 tablet (2.5 mg total) by mouth in the morning. Indications: high blood pressure. Yes Not In System Ref Prov meloxicam (MOBIC) 15 mg tablet Take 1 tablet (15 mg total) by mouth in the morning and 1 tablet (15mg total) before bedtime. States is holding for surgery last dose 05/30/23. Yes Not In System Ref Prov metFORMIN (GLUCOPHAGE) 500 mg tablet Take 1 tablet (500 mg total) by mouth in the morning and 1 tablet (500 mg total) in the evening. Take with meals. Indications: type 2 diabetes mellitus. Yes Not In System Ref Prov metoprolol tartrate (LOPRESSOR) 25 mg tablet Take 1 tablet (25 mg total) by mouth in the morning and 1 tablet (25 mg total) before bedtime. Indications: high blood pressure. 10/07/21 Yes Not In SystemRef Prov pantoprazole (PROTONIX) 40 mg EC tablet Take 1 tablet (40 mg total) by mouth in the morning and 1 tablet (40 mg total) before bedtime. Yes Not In System Ref Prov pregabalin (LYRICA) 150 mg capsule Take 1 capsule (150 mg total) by mouth 3 (three) times a day. Patient taking differently: Take 1 capsule (150 mg total) by mouth in the morning and 1 capsule (150 mg total) before bedtime. PAIN. 04/29/19 Yes Edy Mansfield PA-C rosuvastatin (CRESTOR) 20 mg tablet Take 1 tablet (20 mg total) by mouth in the morning. HIGH CHOLESTEROL. Yes Not In System Ref Prov STIOLTO RESPIMAT 2.5-2.5 mcg/actuation mist Take 2 puffs by mouth every morning. asthma Yes Not In System Ref Prov tamsulosin (FLOMAX) 0.4 mg capsule Take 1 capsule (0.4 mg total) by mouth in the morning. Indications: enlarged prostate with urination problem. Yes Not In System Ref Prov History : Past Medical History: Diagnosis Date Arthritis Asthma Back pain spinal cord stimulator Chronic pain disorder Coronary artery disease 2020 stents x3 Dental disease broken teeth, on ATB for dental infection started 06/05/23 Diabetes mellitus type 2, controlled [place] oral meds and insulin Fractures rt hand boxers fx GERD (gastroesophageal reflux disease) Hyperlipidemia Hypertension Injury of back Lumbar disc disease Lumbar stenosis with neurogenic claudication DC (myocardial infarction) [place] [place] 2020 DC (myocardial infarction) [place] [place] 02/24/2022 Neuropathy Psoriasis uses a cream prn Spinal stenosis of cervical region no injections to area, denies injury Visual impairment wears glasses Past Surgical History: Procedure Laterality Date BLOCK MEDIAL BRANCH NERVE Bilateral 11/16/2016 Performed by Zeeshan Huerta MD at [facility] C5-7 Cervical Arthroplasty N/A 06/10/2023 Performed by Eugene Patricia MD at [facility] CORONARY ANGIOPLASTY WITH STENT PLACEMENT 2020 CORONARY ANGIOPLASTY WITH STENT PLACEMENT 02/24/2022 HERNIA REPAIR umbilical, late 30's early 40's INJECTION BLOCK EPIDURAL CAUDAL STEROID N/A 01/12/2022 Performed by Zeeshan Huerta MD at [facility] INJECTION BLOCK NERVE Bilat Cluneal Bilateral 08/30/2023 Performed by Zeeshan Huerta MD at [facility] INJECTION BLOCK NERVE MEDIAL BRANCH Bilat L 4/5, 5/1 Bilateral 11/16/2022 Performed by Zeeshan Huerta MD at [facility] INJECTION BLOCK NERVE MEDIAL BRANCH Bilat L 4/5,5/1 Bilateral 09/28/2022 Performed by Zeeshan Huerta MD at [facility] INJECTION BLOCK SACROILIAC JOINT Left 08/03/2022 Performed by Zeeshan Huerta MD at [facility] INJECTION MEDIAL BRANCH NERVE BLOCK Bilateral L 4/5, 5/1 Bilateral 01/09/2019 Performed by Zeeshan Huerta MD at [facility] INJECTION NERVE BLOCK Right Sciatic Right 04/17/2019 Performed by Zeeshan Huerta MD at [facility] INJECTION NERVE ROOT LEFT L5,1 Left 09/21/2016 Performed by Zeeshan Huerta MD at [facility] INJECTION SI JOINT Bilateral SI Joint Bilateral 02/06/2019 Performed by Zeeshan Huerta MD at [facility] INJECTION SI JOINT Bilateral SI Joint Bilateral 12/12/2018 Performed by Zeeshan Huerta MD at [facility] INJECTION STEROID EPI 1 WITH SEDATION Right L 5, 1 NR Right 05/01/2019 Performed by Zeeshan Huerta MD at [facility] INJECTION STEROID EPI 1 WITH SEDATION: L45 parmjit x 1 N/A 12/17/2016 Performed by Zeeshan Huerta MD at [facility] INSERTION TRIAL STIMULATOR SPINAL CORD N/A 03/01/2017 Performed by Zeeshan Huerta MD at [facility] Lumbar L4/5 ESIx1 N/A 11/23/2016 Performed by Zeeshan Huerta MD at [facility] LUMBAR SPINE SURGERY 10/29/2012 microdiscectomy, left side MICRO LUMBAR DISCECTOMY L5-S1 RIGHT Right 07/21/2019 Performed by Eugene Patricia MD at [facility] RADIO FREQUENCY ABLATION L2/3,3/4 Left 08/10/2016 Performed by Zeeshan Huerta MD at [facility] RADIO FREQUENCY ABLATION L2/3,3/4 Right 07/27/2016 Performed by Zeeshan Huerta MD at [facility] RADIOFREQUENCY ABLATION SPINAL Left L 4/5, 5/1 Left 03/01/2023 Performed by Zeeshan Huerta MD at [facility] RADIOFREQUENCY ABLATION SPINAL right L 4/5, / Right 03/29/2023 Performed by Zeeshan Huerta MD at [facility] Family History Problem Relation Age of Onset Epilepsy Mother Seizures Mother Hypertension Father Heart disease Father Cancer Father Diabetes Father Back Problems Father Pancreatitis Father Neck Problems Father Heart disease Brother Diabetes Brother Cancer Paternal Grandmother Heart attack Paternal Grandfather Anesthesia problems Neg Hx Bleeding Disorder Neg Hx Clotting disorder Neg Hx Prostate cancer Neg Hx Colon cancer Neg Hx Stroke Neg Hx Social History Socioeconomic History Marital status: Spouse name: Not on file Number of children: Not on file Years of education: Not on file Highest education level: Not on file Occupational History Not on file Tobacco Use Smoking status: Every Day Current packs/day: 1.50 Average packs/day: 1.5 packs/day for 31.5 years (47.2 ttl pk-yrs) Types: Cigarettes Start date: 07/15/1992 Smokeless tobacco: Former Types: Chew Quit date: 07/15/2018 Vaping Use Vaping status: Never Used Substance and Sexual Activity Alcohol use: Not Currently Drug use: No Sexual activity: Defer Other Topics Concern Not on file Social History Narrative Lives with in a one story home with no steps. Tub/shower. Has a bench. Has a walker. Has two beagles. Social Determinants of Health Financial Resource Strain: Not on file Food Insecurity: No Food Insecurity (01/06/2024) Hunger Screening Food Insecurity - Worry: Never True Food Insecurity - Inability: Never True Transportation Needs: No Transportation Needs (06/11/2023) PRAPARE - Transportation Lack of Transportation (Medical): No Lack of Transportation (Non-Medical): No Physical Activity: Not on file Stress: Not on file Social Connections: Not on file Interpersonal Safety: Not At Risk (06/11/2023) Humiliation, Afraid, Rape, and Kick questionnaire Fear of Current or Ex-Partner: No Emotionally Abused: No Physically Abused: No Sexually Abused: No Housing Instability: Low Risk (06/11/2023) Housing Instability Housing Instability: No Review of Systems Review of Systems Constitutional: Negative for fever, chills, diaphoresis, fatigue and unexpected weight change. HENT: Negative for congestion, dental problem, ear pain, hearing loss, nosebleeds, sinus pressure, sore throat, tinnitus and trouble swallowing. Eyes: Negative for pain, discharge and visual disturbance (wears glasses). Respiratory: Negative for cough, choking, shortness of breath and wheezing. Cardiovascular: Negative for chest pain, leg swelling, PND and orthopnea. Gastrointestinal: Negative for nausea, vomiting, abdominal pain, diarrhea, constipation, blood in stool, anal bleeding, rectal pain and black tarry stool. Endocrine: Negative for polydipsia, polyphagia and polyuria. Does not check blood sugars Genitourinary: Negative for bladder incontinence, dysuria, urgency, frequency, hematuria, enuresis and difficulty urinating. Musculoskeletal: Negative for myalgias, joint swelling and arthralgias. Skin: Negative for rash. Neurological: Positive for weakness. Negative for seizures, speech difficulty, numbness and headaches. Hematological: Does not bruise/bleed easily. Psychiatric/Behavioral: Positive for sleep disturbance. Negative for dysphoric mood and suicidal ideas. The patient is not nervous/anxious. Vital Signs BP 116/73 Pulse 73 Temp 36.4 C (97.5 F) Resp 16 Ht 182.9 cm (6') Wt 96 kg (211 lb 10.3 oz) SpO2 96% BMI 28.70 kg/m Labs/Diagnostics: Recent Results (from the past 24 hour(s)) Urinalysis Collection Time: 01/06/24 12:15 PM Result Value Ref Range Color YELLOW YELLOW^YELLOW Turbidity CLEAR CLEAR^CLEAR Specific gravity 1.015 1.003 - 1.035 Nitrite Negative Negative^Negative Ph urine 6.0 5.0 - 8.5 Leukocyte esterase Negative Negative^Negative Protein Negative Negative^Negative mg/dL Glucose, Ur >1,000 (A) Negative^Negative mg/dL Ketones urine Negative Negative^Negative mg/dL Urobilinogen <1.1 <1.1 eu/dL Bilirubin, urine Negative Negative^Negative Hemoglobin Negative Negative^Negative Mrsa Pcr nasal swab Collection Time: 01/06/24 12:40 PM Specimen: Nasal Result Value Ref Range Mrsa PCR Negative Negative^Negative APTT Collection Time: 01/06/24 12:55 PM Result Value Ref Range aPTT 32 26 - 37 sec Basic Metabolic Panel Collection Time: 01/06/24 12:55 PM Result Value Ref Range Sodium 134 134 - 146 mmol/L Potassium, Bld 4.1 3.5 - 5.0 mmol/L Chloride 96 (L) 98 - 109 mmol/L CO2 26 22 - 32 mmol/L Anion gap 12 5 - 15 mmol/L BUN 12 5 - 23 mg/dL Creatinine 0.63 0.60 - 1.30 mg/dL Glucose 235 (H) 65 - 99 mg/dL Calcium 9.7 8.5 - 10.5 mg/dL eGFR (CKD-EPI)non-race dependent >90 >59 ml/min/1.73sq.m CBC auto differential Collection Time: 01/06/24 12:55 PM Result Value Ref Range White Blood Cells 11.1 (H) 4.0 - 11.0 X10E9/L RBC count 5.94 (H) 4.10 - 5.70 X10E12/L Hemoglobin 17.0 13.0 - 17.0 g/dL Hematocrit 50.1 (H) 39 - 49 % MCV 84 80 - 100 fL MCH 28.7 27 - 34 pg MCHC 34.0 32 - 36 g/dL RDW 14.8 11.5 - 15.0 % Platelets 233 150 - 450 X10E9/L MPV 10.0 7 - 12 fL % neutrophils 66.6 % % lymphocytes 22.8 % % monocytes 6.3 % % eosinophils 3.4 % % Basophils 0.9 % Neutrophils Absolute (A) 7.4 (H) 1.5 - 6.6 X10E9/L Lymphocytes Absolute 2.5 1.0 - 3.5 X10E9/L Monocytes Absolute 0.7 0 - 0.9 X10E9/L Eosinophils Absolute 0.4 0.0 - 0.4 X10E9/L Basophils Absolute 0.1 0.0 - 0.2 X10E9/L Protime & INR Collection Time: 01/06/24 12:55 PM Result Value Ref Range Protime 10.4 9.8 - 13.2 sec Inr 0.9 0.8 - 1.1 Hemoglobin A1c Collection Time: 01/06/24 12:55 PM Result Value Ref Range Hemoglobin A1C 9.6 (H) 4.4 - 5.6 % Average glucose 229 mg/dL Type and screen Collection Time: 01/06/24 1:00 PM Result Value Ref Range ABO A RH Positive Antibody Screen Negative Physical Exam Physical Exam Constitutional He is oriented to person, place, and time. He appears well- developed and well-nourished. HENT Head Normocephalic and atraumatic. Ears Right Ear: Tympanic membrane, external ear and ear canal normal. Right external auditory canal: External auditory canal is normal. Left Ear: Tympanic membrane, external ear and ear canal normal. Left external auditory canal: External auditory canal is normal. Nose Nose normal. No rhinorrhea. Mucosa/turbinates: Negative for rhinorrhea. Turbinates normal Mouth/Throat Oral Cavity: normal tongue. Throat: Oropharynx: oropharynx clear and moist normal. Oropharynx negative for abnormal hard palate and abnormal oral tongue. Tonsils: right tonsil normal and left tonsil normal Able to visualize hard and soft palate Eyes: Conjunctivae and EOM are normal. Pupils are equal, round, and reactive to light. Right eye exhibits no discharge and no exudate. Left eye exhibits no discharge and no exudate. Conjunctiva: Right conjunctiva is not injected. Negative for exudate.Left conjunctiva is not injected. Negative for exudate.Negative for scleral icterus. Neck Normal range of motion. Neck supple. Carotid bruit is not present. . Negative for thyromegaly. Cardiovascular: Normal rate and regular rhythm. No murmur heard. Pulses: intact distal pulses Heart Sounds: normal heart sounds. no friction rub Pulmonary/Chest: Effort normal and breath sounds normal. He has no wheezes. Abdominal: Bowel sounds are normal. He exhibits no mass. Soft. There is no hepatosplenomegaly. There is no abdominal tenderness. There is no rebound and no guarding. Musculoskeletal: General: Tenderness present. Cervical back: Normal range of motion and neck supple. Comments: Tenderness lumbar; weakness left foot Neurological He is alert and oriented to person, place, and time. He has normal reflexes. Speech: normal speech Skin: Skin is warm and dry. Psychiatric: He has a normal mood and affect. His speech is normal and behavior is normal. Judgment and thought content normal. Assessment Lumbar spinal stenosis with neurogenic claudication. Diabetes mellitus-A1c 06/06/23=12.7 Hypertension GERD asthma Plan L5-S1 posterior interbody fusion. Follow anesthesia guidelines regarding medications Follow anesthesia guidelines regarding medications Continue current medications 5. Continue current medications ADAM Horner 01/07/24 0902 [facility] Instructions* Patient Instructions* Abigail Chiang RN - 01/06/2024 11:45 AM EDT Images from the original note were not included. Your surgery/procedure is scheduled at [facility] on 01/20/2024 at 1:15 PM Arrival Time 11:15 AM [facility] Address: [address] [place] [address] in [address]ing lot located on [facility]. Report to the Entrance B. Check in at the information desk the surgery. The waiting room located on the second floor. If you have any questions prior to surgery, please call Pre-Admission Clinic at [phone] between 7:30 am and 4:30 pm Saturday through Saturday. If you have questions the morning of surgery, please call the Pre-op Department at [phone]. Notify your SURGEON if you develop any illness such as a cold, cough, fever, sore throat, vomiting or are hospitalized between now and your surgery. Medication Instructions (Do not stop your medications without consulting the prescribing physician). Take the following medications the morning of surgery with a sip of water: METOPROLOL, PANTOPRAZOLE, PREGABALIN, ROSUVASTATIN, TAMSULOSIN Diabetic or Weight loss medications: HOLD: FARXIGA LAST DOSE: 01/16/2024 Take inhalers as prescribed the morning of surgery. Bring your rescue inhaler. Due to the risk associated with these medications. If these medications are not held per instruction below, your surgery is at an increased risk for cancellation. SGLT2 Medications- Hold 3 days prior to surgery: Jardiance, Empagliflozin, Farxiga, Dapagliflozin, Invokana, Canagliflozin GLP-1 Medications (Injection or Pill)- If taken daily hold day of surgery. If taken weekly, hold 1 week prior to surgery: Adlyxin, Byetta, Bydureon, Ozempic, Rybelsus,Trulicity, Victoza, Wegovy, Lixisenatide, Exenatide, Semaglutide, Dulaglutide, Liraglutide GIP/GLP-1(Injection or Pill)- If taken daily hold day of surgery. If taken weekly, hold 1 week prior to surgery: Peyman . Blood thinners: Please contact your prescribing physician regarding a stop/hold date for these medications. Medications such as Coumadin, Heparin, Aspirin, Plavix, Eliquis, Pradaxa Diabetics: If you take insulin, contact your prescribing doctor for instructions on how to manage this the night before and the morning of surgery. Non-steriodal Anti-Inflammatory Drugs (NSAIDS)- Hold 3 days prior to surgery unless otherwise directed by your surgeon. Vitamins/Herbal Products: You may continue to take your prescribed vitamins such as potassium, iron, vitamin B, vitamin C, or multivitamin unless specifically instructed by your surgeon to hold. STOPtaking all herbal products/teas one week prior to your surgery. Marijuana: Stop marijuana 72 hours prior to surgery, stop CBD oil 48 hours prior to surgery. If you have been given bowel prep instructions by your surgeon, please call the surgeon's office with any questions about these instructions. What do I do the day of Surgery? Age 2 through adult - Stop all solids by midnight, You may have clear liquids up to 2 hours before surgery, unless otherwise instructed by your surgeon. Clear liquids are: water, sports drinks such as Gatorade or G2, or apple juice. You may NOT have: tube feedings, dairy products, alcoholic beverages, orange juice, or any liquids with solids or pulp in it. If you received a green plastic bracelet, bring it with you the day of surgery and your nurse will put it on you. In order to help prevent infection post-operatively, you may be asked to use a CHG mouthwash when you arrive to the Pre-op area. Your nurse will provide instruction the morning of. What do I need to do to prepare for surgery? If you will be going home the same day as your surgery, arrange for an adult over [address] Riding in a bus or taxi by yourself is not permitted. You should not smoke or drink alcohol 24 hours before your surgery. Alcohol thins the blood and may cause bleeding problems during surgery. Smoking increases the risk of breathing problems after surgery. Do not use lotions, creams, powders, perfume, make up, cologne or after-shaves day of surgery. Remove ALL jewelry including wedding rings, body piercings (including dermal piercings ,hair extensions that contain metal, nail yemeni, make-up, and contact lens. You may brush your teeth the morning of surgery, but do not swallow the water. Wear your dentures and partial plates to the hospital (no adhesive). Shower the night the before. If applicable, use the CHG (chlorhexidine gluconate) wipes Scheduled Arthroplasties and Spinal Implants Full Body Surgical Prep Instructions Night Before Surgery Cleaning the skin before surgery can lower the risk of infection at the surgical site. This sheet will tell you how to use the clothes that have a rinse-free, 2% Chlorhexidine Gluconate (CHG) soap onthem. Follow the steps below very carefully Important Information: Do not use if allergic to CHG Do not shave your surgical area (or near the area) for 3 days before surgery. Shower (or bathe) and shampoo your hair with regular soap and shampoo at least one hour before you use the CHG cloths to clean your skin. Be sure your skin is completely dry and cool. Clean your skin with the CHG cloths the night before surgery at your home. Do not rinse off the CHG CHG may cause skin to itch or get red for a short time. If you have itching or redness that does not go away, rinse the areas and stop using the CHG clothes. Do not shower the morning of surgery. You may shampoo your hair at a sink. Directions: 1. Remove the plastic wrap. Open the 3 packages with scissors. There are two cloths in each package. 2. Do not let the CHG get in your eyes, ears, mouth. Do not use on open skin wounds (cuts, scrapes,sores). 3. Wipe your body in a back and forth motion using all six (6) cloths. Use each cloth for 30 seconds while using a firm massage . Cloth # 1 - Wipe your neck, shoulders, chest. The area above the jawline can be washed with soap and water. Do not allow soap and water to go below the jawline. Soap can inactivate the CHG. Cloth # 2 - Wipe both arms and hands, starting each with the shoulder and ending at fingertips. Be sure to wipe the arm pit areas. Cloth # 3 - Wipe your abdomen and groin. Be sure to wipe folds in belly and groin areas. Cloth # 4 - Wipe right leg and right foot, starting at the thigh and ending at the toes. Be sure towipe behind your knees. Cloth # 5 - Wipe left leg and left foot, starting at the thigh and ending at the toes. Be sure to wipe behind your knees. Cloth # 6 - Wipe your back starting at the base of your neck and ending at your buttocks. Cover as much area as possible. You may need help from someone. Allow area to air dry for one minute and do not rinse. It is normal for the skin to have a sticky feel for a few minutes after you use the cloths. Do not apply any lotion. Do not shower after you use the cloths. Dress in clean pajamas at night and wear clean clothes the morning of surgery. What should I bring to the hospital? If you received a green plastic bracelet, bring it with you the day of surgery and your nurse will put it on you. Eyeglass or contact lens case If you will be spending the night, please bring personal care items and leave them in the car untilyou are taken to your room after surgery. Leave ALL valuables at home. If any of these instructions conflict with those you received from the surgeon, please seek clarification from your surgeon's office. DEEP BREATHING EXERCISES This exercise helps promote good air exchange and helps to prevent pneumonia after surgery. Breathe in slowly and deeply through the nose. Hold your breath for a few seconds and then exhale slowly through the mouth. Repeat this three times and then cough.Coughing helps to clear your lungs. If you have had a surgery with an incision into your abdomen or chest, press gently against your incision with a pillow or a folded blanket when you cough. Please be aware - it may not be arnold to cough following some types of surgeries involving the eyes,ears, sinuses and throat. Always follow your doctor's instructions. LEG EXERCISE These exercises help promote good circulation and help to prevent blood clots after surgery. Point your toes to the ceiling and then point them to the wall. Do this slowly about 15-20 times. You may also move your feet in circles. Do the exercise that is most comfortable for you. If you have had surgery involving your shoulder or arm, we recommend you move your fingers. PRACTICING We ask that you begin practicing these exercises before your surgery. After surgery try to do both exercises at least every 2 hours during the day and early evening. SURGICAL SITE INFECTION PREVENTION What is a Surgical Site Infection? Infection can happen to the area of the body where surgery is done. This is called a surgical site infection (SSI). A SSI does not happen very often. Can SSIs be treated? Antibiotics are used to treat SSI. Some patients may need another surgery to treat the infection. The doctor will discuss treatment options with you. What are some of the things that hospitals are doing to prevent SSIs? Soap and water or alcohol hand rub are used before and after caring for each patient. Special soap is used to clean surgery workers hands and arms just before the surgery. Masks, gowns, gloves and hair covers are worn during the surgery to keep the area clean. Hair in the surgery area may be removed with clippers (not razors). A special soap that kills germs is used to clean the skin at the surgery site. Antibiotics may be given before the surgery starts. What can you do to prevent SSIs? Before surgery: You may be asked to shower or bathe with a special soap that kills germs the night before and the day of surgery. Use the soap as you were told. If you smoke, stop or cut down. Ask your doctor about ways to quit. Do not shave near where you will have surgery. Shaving can irritate the skin and make it easier to get and infection. After surgery: Be sure that the doctors and nurses clean their hands before and after touching you. Be sure your family and friends clean their hands before and after visiting you. Do not be afraid to remind them. * Care for your wound at home as told by your doctor or nurse * Call your doctor right away if you have fever, redness, increased pain, or drainage at the surgery site. Further questions? Contact the doctor, nurse or the Infection Prevention and Control department if you have any questions. PATIENT RIGHTS AND RESPONSIBILITIES As a patient at [facility], you have the right to: Receive medical care and be informed of who is taking care of you Be treated with dignity and respect Have a family member/small business representative of choice and your physician notified of your admission Receive information and actively participate in decisions about your care and treatment Refuse care, treatment and services Decide who may provide your support and speak for you Access christianity and spiritual services Participate in ethical issues and questions about your care Receive private and confidential care Have appropriate assessment and management of your pain Know guest visitation restrictions or limitations Have an advance directive Access protective services Consent or refuse to participate in research studies or production or recordings, films or other images Have resolution of your complaints Receive information of hospital charges and payment methods Patient/patient small business representative responsibilities are to: Provide information about health status to facilitate care, treatment and services Follow the treatment, plan, keep appointments and speak up when you do not understand the plan Respect the rights of other patients and healthcare personnel Follow organizational rules and regulations that support quality care and a safe environment Fulfill financial obligations as promptly as possible documented in this [facility]White [facility]10-14-[facility]24 Miscellaneous Notes* Perioperative Nursing Note - Abigail Chiang RN - 01/06/2024 11:45 AM EDT Instructed to bring controller for spinal cord stimulator day of procedure, need pre op CXR, and tocontact prescriber for pre op insulin instructions. Patient verbalized understanding. States will hold aspirin, meloxicam and farxiga one week prior to surgery. Informed farxiga only needs to be heldthree days prior to procedure, last dose would be 01/16/2024. Patient verbalized understanding. documented in this [facility]10-14-2024 Nurse Note* Perioperative Nursing Note - Abigail Chiang RN - 01/06/2024 11:45 AM EDT Instructed to bring controller for spinal cord stimulator day of procedure, need pre op CXR, and tocontact prescriber for pre op insulin instructions. Patient verbalized understanding. States will hold aspirin, meloxicam and farxiga one week prior to surgery. Informed farxiga only needs to be heldthree days prior to procedure, last dose would be 01/16/2024. Patient verbalized understanding. [facility]09-19-2024 History of Present illness Narrative* Eugene Patricia MD - 12/12/2023 10:15 AM EDT In person visit CC: continued back probems - has imaging HPI: 48y/o male - He had neck surgery in May - he thinks overall it is doing OK He says it clicks all the time He gets clicking when he flexes forward and then stands back up He had two level arthroplasty The devices both look good The clinking is anjnoying for him Just with F/E Not with lateral rotation He had three prior surgeries on his back Microdiscectomies for two of them The third one was a spinal stimulator He had a myelogram The interpretation is that there may be herniated disc (recurrent) or scar tissue at L5-S1 I did the L5-S1 on the right - it was during COVID The other was Juan Manuel He has back pain Also has leg pain - mostly left side The left leg pain goes down to 4th and 5th toes 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 ROS: As above Past Medical History: Diagnosis Date Arthritis Asthma Back pain spinal cord stimulator Chronic pain disorder Coronary artery disease 2020 stents x3 Dental disease broken teeth, on ATB for dental infection started 06/05/23 Diabetes mellitus type 2, controlled ([facility] oral meds and insulin Fractures rt hand boxers fx GERD (gastroesophageal reflux disease) Hyperlipidemia Hypertension Injury of back Lumbar disc disease DC (myocardial infarction) [place] 2020 DC (myocardial infarction) [place] 02/24/2022 Neuropathy Psoriasis uses a cream prn Spinal stenosis of cervical region no injections to area, denies injury Visual impairment wears glasses Past Surgical History: Procedure Laterality Date BLOCK MEDIAL BRANCH NERVE Bilateral 11/16/2016 Performed by Zeeshan Huerta MD at [facility] C5-7 Cervical Arthroplasty N/A 06/10/2023 Performed by Eugene Patricia MD at [facility] CORONARY ANGIOPLASTY WITH STENT PLACEMENT 2020 CORONARY ANGIOPLASTY WITH STENT PLACEMENT 02/24/2022 HERNIA REPAIR umbilical, late 30's early 40's INJECTION BLOCK EPIDURAL CAUDAL STEROID N/A 01/12/2022 Performed by Zeeshan Huerta MD at [facility] INJECTION BLOCK NERVE Bilat Cluneal Bilateral 08/30/2023 Performed by Zeeshan Huerta MD at [facility] INJECTION BLOCK NERVE MEDIAL BRANCH Bilat L 4/5, 5/1 Bilateral 11/16/2022 Performed by Zeeshan Huerta MD at [facility] INJECTION BLOCK NERVE MEDIAL BRANCH Bilat L 4/5,5/1 Bilateral 09/28/2022 Performed by Zeeshan Huerta MD at [facility] INJECTION BLOCK SACROILIAC JOINT Left 08/03/2022 Performed by Zeeshan Huerta MD at [facility] INJECTION MEDIAL BRANCH NERVE BLOCK Bilateral L 4/5, 5/1 Bilateral 01/09/2019 Performed by Zeeshan Huerta MD at [facility] INJECTION NERVE BLOCK Right Sciatic Right 04/17/2019 Performed by Zeeshan Huerta MD at [facility] NERVE ROOT LEFT L5,1 Left 09/21/2016 Performed by Zeeshan Huerta MD at [facility] INJECTION SI JOINT Bilateral SI Joint Bilateral 02/06/2019 Performed by Zeeshan Huerta MD at [facility] INJECTION SI JOINT Bilateral SI Joint Bilateral 12/12/2018 Performed by Zeeshan Huerta MD at [facility] INJECTION STEROID EPI 1 WITH SEDATION Right L 5, 1 NR Right 05/01/2019 Performed by Zeeshan Huerta MD at [facility] INJECTION STEROID EPI 1 WITH SEDATION: L45 parmjit x 1 N/A 12/17/2016 Performed by Zeeshan Huerta MD at [facility] INSERTION TRIAL STIMULATOR SPINAL CORD N/A 03/01/2017 Performed by Zeeshan Huerta MD at [facility] Lumbar L4/5 ESIx1 N/A 11/23/2016 Performed by Zeeshan Huerta MD at [facility] LUMBAR SPINE SURGERY 10/29/2012 microdiscectomy, left side MICRO LUMBAR DISCECTOMY L5-S1 RIGHT Right 07/21/2019 Performed by Eugene Patricia MD at [facility] RADIO FREQUENCY ABLATION L2/3,3/4 Left 08/10/2016 Performed by Zeeshan Huerta MD at [facility] RADIO FREQUENCY ABLATION L2/3,3/4 Right 07/27/2016 Performed by Zeeshan Huerta MD at [facility] RADIOFREQUENCY ABLATION SPINAL Left L 4/5, 5/ Left 03/01/2023 Performed by Zeeshan Huerta MD at [facility] RADIOFREQUENCY ABLATION SPINAL right L 4/5, 5/ Right 03/29/2023 Performed by Zeeshan Huerta MD at [facility] Current Outpatient Medications on File Prior to Visit Medication Sig Dispense Refill albuterol (VENTOLIN HFA) 90 mcg/actuation inhaler Inhale 2 puffs every 4 (four) hours as needed forwheezing or shortness of breath Indications: asthma attack. Uses most days aspirin 81 mg Take 1 tablet (81 mg total) by mouth in the morning. Indications: blood clot prevention following percutaneous coronary intervention. Ok to resume 06/18/23. carisoprodoL (SOMA) 350 mg tablet Take 1 tablet (350 mg total) by mouth in the morning and 1 tablet(350 mg total) before bedtime. Indications: muscle spasm. clindamycin (CLEOCIN) 300 mg capsule Take 1 capsule (300 mg total) by mouth 3 (three) times a day. Dental infection dapagliflozin (FARXIGA) 10 mg tablet Take 1 tablet (10 mg total) by mouth in the morning. Indications: type 2 diabetes mellitus. HOLD 3 DAYS PRIOR TO SURGERY. finasteride (PROSCAR) 5 mg tablet Take 1 tablet (5 mg total) by mouth in the morning. Indications: enlarged prostate with urination problem. hydroCHLOROthiazide (HYDRODIURIL) 25 mg tablet Take 1 tablet (25 mg total) by mouth daily Indications: high blood pressure. HYDROcodone-acetaminophen (NORCO) 5-325 mg per tablet take 1 tablet by mouth every 4 hours NEEDED FOR PAIN for 7 days insulin glargine U-300 conc (TOUJEO MAX U-300 SOLOSTAR) 300 unit/mL (3 mL) insulin pen Inject 40 Unit under the skin Daily before evening meal Indications: type 2 diabetes mellitus. lisinopriL (PRINIVIL,ZESTRIL) 2.5 mg tablet Take 1 tablet (2.5 mg total) by mouth in the morning. Indications: high blood pressure. meloxicam (MOBIC) 15 mg tablet Take 1 tablet (15 mg total) by mouth in the morning and 1 tablet (15mg total) before bedtime. States is holding for surgery last dose 05/30/23. metFORMIN (GLUCOPHAGE) 500 mg tablet Take 1 tablet (500 mg total) by mouth in the morning and 1 tablet (500 mg total) in the evening. Take with meals. Indications: type 2 diabetes mellitus. metoprolol tartrate (LOPRESSOR) 25 mg tablet Take 1 tablet (25 mg total) by mouth in the morning and 1 tablet (25 mg total) before bedtime. Indications: high blood pressure. pantoprazole (PROTONIX) 40 mg EC tablet Take 1 tablet (40 mg total) by mouth in the morning and 1 tablet (40 mg total) before bedtime. pregabalin (LYRICA) 150 mg capsule Take 1 capsule (150 mg total) by mouth 3 (three) times a day. (Patient taking differently: Take 1 capsule (150 mg total) by mouth in the morning and 1 capsule (150 mg total) before bedtime. PAIN.) 90 capsule 1 rosuvastatin (CRESTOR) 20 mg tablet Take 1 tablet (20 mg total) by mouth in the morning. HIGH CHOLESTEROL. STIOLTO RESPIMAT 2.5-2.5 mcg/actuation mist Take 2 puffs by mouth every morning. asthma tamsulosin (FLOMAX) 0.4 mg capsule Take 1 capsule (0.4 mg total) by mouth in the morning. Indications: enlarged prostate with urination problem. amitriptyline (ELAVIL) 50 mg tablet Take 1 tablet (50 mg total) by mouth nightly. (Patient not taking: Reported on 06/06/2023) 0 nicotine (NICODERM CQ) 21 mg/[address] 1 patch on the skin daily. (Patient not taking: Reported on 12/12/2023) 7 patch 0 No current facility-administered medications on file prior to visit. Allergies Allergen Reactions Cephalexin Itching Social History Socioeconomic History Marital status: Spouse name: Not on file Number of children: Not on file Years of education: Not on file Highest education level: Not on file Occupational History Not on file Tobacco Use Smoking status: Every Day Current packs/day: 1.50 Average packs/day: 1.5 packs/day for 31.4 years (47.1 ttl pk-yrs) Types: Cigarettes Start date: 07/15/1992 Smokeless tobacco: Former Types: Chew Quit date: 07/15/2018 Vaping Use Vaping status: Never Used Substance and Sexual Activity Alcohol use: Not Currently Comment: rarely Drug use: No Sexual activity: Defer Other Topics Concern Not on file Social History Narrative Not on file Social Determinants of Health Financial Resource Strain: Not on file Food Insecurity: No Food Insecurity (12/12/2023) Hunger Screening Food Insecurity - Worry: Never True Food Insecurity - Inability: Never True Transportation Needs: No Transportation Needs (06/11/2023) PRAPARE - Transportation Lack of Transportation (Medical): No Lack of Transportation (Non-Medical): No Physical Activity: Not on file Stress: Not on file Social Connections: Not on file Interpersonal Safety: Not At Risk (06/11/2023) Humiliation, Afraid, Rape, and Kick questionnaire Fear of Current or Ex-Partner: No Emotionally Abused: No Physically Abused: No Sexually Abused: No Housing Instability: Low Risk (06/11/2023) Housing Instability Housing Instability: No Exam Ht 182.9 cm (6') Wt 99.8 kg (220 lb) BMI 29.84 kg/m Mood/affect normal NC/AT Reasonably groomed and attired Neurological: Awake, alert, oriented x 3 CN intact Speech intact Cognition intact Motor No focal motor defecit PF and DF are both full b Sensory intact Gait intact Station normal Coordination intact Reflexes Review of films: I personally reviewed and interpreted the patient's imaging during the clinic visit He has ddd at L5-S1 Likely either recurrent disc and or scar at L5-S1 on the left A/P: 48 y/o male - s/p ACF and sp multiple prior back surgeries - I reviewed his new myelogram and interpreted it for him. He is thinking about lumbar fusion ta L5-S1 - he wants to do that surgery - He is going to try to quit smoking - he smokes about 2 ppd right now He is sitting around - not yet back at work EUGENE PATRICIA MD We will work to get surgery scheduled for him - L5-S1 fusion. documented in this encounterWashington County Tuberculosis HospitalFlirtatious [facility]09-19-[facility]24 Instructions* Patient Instructions* Hafsa Zhang CMA - 12/12/2023 10:15 AM EDT Patient was seen today by Patient was offered surgery and will schedule with Comfort COHEN documented in this encounterWhite Hospital07-25-2024 History of Present illness Narrative* Eugene Patricia MD - 10/17/2023 2:45 PM EDT In person visit Chief complaint - s/p cervical spinal surgery ENTERPRISE: 48 y/o male - He had neck surgery in May 2023 Last seen for that in July 2023 He had back surgery in 2019 - he thinks about June 2019 That did help some He has had 3 surgeries on his lower back so far (Andrey did one, Juan Manuel did one) I did the right side of his back He is having pain down both legs He is on lyrica 3 pills per day - that helps more than just 2 per day He cannot walk too long He cannot sit too long He had to get a shower stool He was having to kneel down in the shower Juan Manuel did microdisc Cristal did microdisc Andrey did SCS It was helping before - not so much now He cannot get MRI due to the stimulator They tried to get a myelogram ROS: As above Past Medical History: Diagnosis Date Arthritis Asthma Back pain spinal cord stimulator Chronic pain disorder Coronary artery disease 2020 stents x3 Dental disease broken teeth, on ATB for dental infection started 06/05/23 Diabetes mellitus type 2, controlled [place] oral meds and insulin Fractures rt hand boxers fx GERD (gastroesophageal reflux disease) Hyperlipidemia Hypertension Injury of back Lumbar disc disease Lumbar stenosis with neurogenic claudication DC (myocardial infarction) [place] 2020 DC (myocardial infarction) [place] 02/24/2022 Neuropathy Psoriasis uses a cream prn Spinal stenosis of cervical region no injections to area, denies injury Visual impairment wears glasses Past Surgical History: Procedure Laterality Date BLOCK MEDIAL BRANCH NERVE Bilateral 11/16/2016 Performed by Zeeshan Huerta MD at [facility] C5-7 Cervical Arthroplasty N/A 06/10/2023 Performed by Eugene Patricia MD at [facility] CORONARY ANGIOPLASTY WITH STENT PLACEMENT 2020 CORONARY ANGIOPLASTY WITH STENT PLACEMENT 02/24/2022 HERNIA REPAIR umbilical, late 30's early 40's INJECTION BLOCK EPIDURAL CAUDAL STEROID N/A 01/12/2022 Performed by Zeeshan Huerta MD at [facility] INJECTION BLOCK NERVE Bilat Cluneal Bilateral 08/30/2023 Performed by Zeeshan Huerta MD at [facility] INJECTION BLOCK NERVE MEDIAL BRANCH Bilat L 4/5, 5/1 Bilateral 11/16/2022 Performed by Zeeshan Huerta MD at [facility] INJECTION BLOCK NERVE MEDIAL BRANCH Bilat L 4/5,5/1 Bilateral 09/28/2022 Performed by Zeeshan Huerta MD at [facility] INJECTION BLOCK SACROILIAC JOINT Left 08/03/2022 Performed by Zeeshan Huerta MD at [facility] INJECTION MEDIAL BRANCH NERVE BLOCK Bilateral L 4/5, 5/1 Bilateral 01/09/2019 Performed by Zeeshan Huerta MD at [facility] NERVE BLOCK Right Sciatic Right 04/17/2019 Performed by Zeeshan Huerta MD at [facility] INJECTION NERVE ROOT LEFT L5,1 Left 09/21/2016 Performed by Zeeshan Huerta MD at [facility] INJECTION SI JOINT Bilateral SI Joint Bilateral 02/06/2019 Performed by Zeeshan Huerta MD at [facility] INJECTION SI JOINT Bilateral SI Joint Bilateral 12/12/2018 Performed by Zeeshan Huerat MD at [facility] INJECTION STEROID EPI 1 WITH SEDATION Right L 5, 1 NR Right 05/01/2019 Performed by Zeeshan Huerta MD at [facility] INJECTION STEROID EPI 1 WITH SEDATION: L45 parmjit x 1 N/A 12/17/2016 Performed by Zeeshan Huerta MD at [facility] INSERTION TRIAL STIMULATOR SPINAL CORD N/A 03/01/2017 Performed by Zeeshan Huerta MD at [facility] Lumbar L4/5 ESIx1 N/A 11/23/2016 Performed by Zeeshan Huerta MD at [facility] LUMBAR SPINE SURGERY 10/29/2012 microdiscectomy, left side MICRO LUMBAR DISCECTOMY L5-S1 RIGHT Right 07/21/2019 Performed by Eugene Patricia MD at [facility] RADIO FREQUENCY ABLATION L2/3,3/4 Left 08/10/2016 Performed by Zeeshan Huerta MD at [facility] RADIO FREQUENCY ABLATION L2/3,3/4 Right 07/27/2016 Performed by Zeeshan Huerta MD at [facility] RADIOFREQUENCY ABLATION SPINAL Left L 4/5, 5/ Left 03/01/2023 Performed by Zeeshan Huerta MD at [facility] RADIOFREQUENCY ABLATION SPINAL right L 4/5, / Right 03/29/2023 [facility] LUMBAR SINGLE LEVEL/ L5-S1 Posterior Lumbar Interbody Fusion N/A1 Performed by Eugene Patricia MD at [facility] Current Outpatient Medications on File Prior to Visit Medication Sig Dispense Refill albuterol (VENTOLIN HFA) 90 mcg/actuation inhaler Inhale 2 puffs every 4 (four) hours as needed forwheezing or shortness of breath Indications: asthma attack. Uses most days carisoprodoL (SOMA) 350 mg tablet Take 1 tablet (350 mg total) by mouth in the morning and 1 tablet(350 mg total) before bedtime. Indications: muscle spasm. dapagliflozin (FARXIGA) 10 mg tablet Take 1 tablet (10 mg total) by mouth in the morning. Indications: type 2 diabetes mellitus. HOLD 3 DAYS PRIOR TO SURGERY. finasteride (PROSCAR) 5 mg tablet Take 1 tablet (5 mg total) by mouth in the morning. Indications: enlarged prostate with urination problem. hydroCHLOROthiazide (HYDRODIURIL) 25 mg tablet Take 1 tablet (25 mg total) by mouth daily Indications: high blood pressure. insulin glargine U-300 conc (TOUJEO MAX U-300 SOLOSTAR) 300 unit/mL (3 mL) insulin pen Inject 60 Unit under the skin Daily before evening meal Indications: type 2 diabetes mellitus. lisinopriL (PRINIVIL,ZESTRIL) 2.5 mg tablet Take 1 tablet (2.5 mg total) by mouth in the morning. Indications: high blood pressure. metFORMIN (GLUCOPHAGE) 500 mg tablet Take 1 tablet (500 mg total) by mouth in the morning and 1 tablet (500 mg total) in the evening. Take with meals. Indications: type 2 diabetes mellitus. metoprolol tartrate (LOPRESSOR) 25 mg tablet Take 1 tablet (25 mg total) by mouth in the morning and 1 tablet (25 mg total) before bedtime. Indications: high blood pressure. pantoprazole (PROTONIX) 40 mg EC tablet Take 1 tablet (40 mg total) by mouth in the morning and 1 tablet (40 mg total) before bedtime. pregabalin (LYRICA) 150 mg capsule Take 1 capsule (150 mg total) by mouth 3 (three) times a day. (Patient taking differently: Take 1 capsule (150 mg total) by mouth in the morning and 1 capsule (150 mg total) before bedtime. PAIN.) 90 capsule 1 rosuvastatin (CRESTOR) 20 mg tablet Take 1 tablet (20 mg total) by mouth in the morning. HIGH CHOLESTEROL. STIOLTO RESPIMAT 2.5-2.5 mcg/actuation mist Take 2 puffs by mouth every morning. asthma tamsulosin (FLOMAX) 0.4 mg capsule Take 1 capsule (0.4 mg total) by mouth in the morning. Indications: enlarged prostate with urination problem. No current facility-administered medications on file prior to visit. Allergies Allergen Reactions Cephalexin Itching Poison Jada Extract Facial Swelling Eye swelling Exam: Vss Cooperative With family Antalgic gait Mood/affect normal Awake, alert, oriented cN intact Speech, cognition intact Motor/sensory - no clear focal deficit Coordination intact Reflexes deferred Films reviewed - he needs new lumbar imaging - likely myelogram A/P: 48 y/o male - sp recent neck surgery and 3 prior back surgeries - he is having more problems with his legs again - I recommended myelogram with post-myelo CT - ordered. I will order him a myelgoram and post-myelogram CT of his lumbar spine I will check with Dr. Culp to see if they can do that it Yobany (he said yes) I also ordered follow up x-rays for his c-spine. EUGENE PATRICIA MD documented in this encounterWhite Hospital07-25-2024 Instructions* Patient Instructions* Hafsa Zhang CMA - 10/17/2023 2:45 PM EDT Patient was seen today by Patient will follow up in November to review testing KK documented in this encounterWhite Hospital06-19-2024 Miscellaneous Notes* Telephone Encounter - Astrid Cande - 09/11/2023 12:48 PM EDT Received referral for patient to see us for lumbar now. No testing done, he is going to contact [facility] to order myelogram/ct, he is not able to have mri, and then will call us for appointment once that is set up. documented in this encounterWhite Hospital06-19-2024 Telephone encounter Note* Telephone Encounter - Astrid Cande - 09/11/2023 12:48 PM EDT Received referral for patient to see us for lumbar now. No testing done, he is going to contact [facility] to order myelogram/ct, he is not able to have mri, and then will call us for appointment once that is set up. [facility]06-10-2024 Miscellaneous Notes* Telephone Encounter - Luba Harris CNA - 09/02/2023 10:32 AM EDT Patient calls to report increased pain. He reports he had bilateral cluneal nerve block Saturday08/30/23. He reports no relief and later that night he developed severe pain from his bilateral, left greater than right buttocks down thighs to calves. Pain is same as prior to nerve block just much worse.He is unable to sleep as pain is so sever. He is taking his Mobic and pain pills with no relief. Hehas also tried heat. No fever or redness. Asking for recommendations. * Telephone Encounter - Edy Mansfield PA-C - 09/02/2023 10:32 AM EDT Is he still taking his lyrica? * Telephone Encounter - Luba Harris CNA - 09/02/2023 10:32 AM EDT Yes he is. He is not any better today. Absolutely miserable. Luba Harris CNA 09/03/23 1216 * Telephone Encounter - Edy Mansfield PA-C - 09/02/2023 10:32 AM EDT Have him call [facility] and see if they can get him reprogrammed and then go to ER if needed. * Telephone Encounter - Luba Harris CNA - 09/02/2023 10:32 AM EDT Patient notified Luba Harris CNA 09/04/23 1021 documented in this encounterWashington County Tuberculosis HospitalFlirtatious Labs06-10-2024 Telephone encounter Note* Telephone Encounter - Luba Harris CNA - 09/02/2023 10:32 AM EDT Patient calls to report increased pain. He reports he had bilateral cluneal nerve block Saturday08/30/23. He reports no relief and later that night he developed severe pain from his bilateral, left greater than right buttocks down thighs to calves. Pain is same as prior to nerve block just much worse.He is unable to sleep as pain is so sever. He is taking his Mobic and pain pills with no relief. Hehas also tried heat. No fever or redness. Asking for recommendations. [id number] Telephone encounter Note* Telephone Encounter - Edy Mansfield PA-C - 09/02/2023 10:32 AM EDT Is he still taking his lyrica? [facility]06-10-[facility] Telephone encounter Note* Telephone Encounter - Luba Harris CNA - 09/02/2023 10:32 AM EDT Yes he is. He is not any better today. Absolutely miserable. Luba Harris CNA 09/03/23 1216 [facility]06-10-2024 Telephone encounter Note* Telephone Encounter - Edy Mansfield PA-C - 09/02/2023 10:32 AM EDT Have him call [facility] and see if they can get him reprogrammed and then go to ER if needed. 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 ROS: As above Past Medical History: Diagnosis Date Arthritis Asthma Back pain spinal cord stimulator Chronic pain disorder Coronary artery disease 2020 stents x3 Dental disease broken teeth, on ATB for dental infection started 06/05/23 Diabetes mellitus type 2, controlled [place] oral meds and insulin Fractures rt hand boxers fx GERD (gastroesophageal reflux disease) Hyperlipidemia Hypertension Injury of back Lumbar disc disease DC (myocardial infarction) [place] 2020 DC (myocardial infarction) [place] 02/24/2022 Neuropathy Psoriasis uses a cream prn Spinal stenosis of cervical region no injections to area, denies injury Visual impairment wears glasses Past Surgical History: Procedure Laterality Date BLOCK MEDIAL BRANCH NERVE Bilateral 11/16/2016 Performed by Zeeshan Huerta MD at [facility] C5-7 Cervical Arthroplasty N/A 06/10/2023 Performed by Eugene Patricia MD at [facility] CORONARY ANGIOPLASTY WITH STENT PLACEMENT 2020 CORONARY ANGIOPLASTY WITH STENT PLACEMENT 02/24/2022 HERNIA REPAIR umbilical, late 30's early 40's INJECTION BLOCK EPIDURAL CAUDAL STEROID N/A 01/12/2022 Performed by Zeeshan Huerta MD at [facility] INJECTION BLOCK NERVE Bilat Cluneal Bilateral 08/30/2023 Performed by Zeeshan Huerta MD at [facility] INJECTION BLOCK NERVE MEDIAL BRANCH Bilat L 4/5, 5/1 Bilateral 11/16/2022 Performed by Zeeshan Huerta MD at [facility] INJECTION BLOCK NERVE MEDIAL BRANCH Bilat L 4/5,5/1 Bilateral 09/28/2022 Performed by Zeeshan Huerta MD at [facility] INJECTION BLOCK SACROILIAC JOINT Left 08/03/2022 Performed by Zeeshan Huerta MD at [facility] INJECTION MEDIAL BRANCH NERVE BLOCK Bilateral L 4/5, 5/1 Bilateral 01/09/2019 Performed by Zeeshan Huerta MD at [facility] INJECTION NERVE BLOCK Right Sciatic Right 04/17/2019 Performed by Zeeshan Huerta MD at [facility] INJECTION NERVE ROOT LEFT L5,1 Left 09/21/2016 Performed by Zeeshan Huerta MD at [facility] INJECTION SI JOINT Bilateral SI Joint Bilateral 02/06/2019 Performed by Zeesahn Huerta MD at [facility] INJECTION SI JOINT Bilateral SI Joint Bilateral 12/12/2018 Performed by Zeeshan Huerta MD at [facility] INJECTION STEROID EPI 1 WITH SEDATION Right L 5, 1 NR Right 05/01/2019 Performed by Zeeshan Huerta MD at [facility] INJECTION STEROID EPI 1 WITH SEDATION: L45 parmjit x 1 N/A 12/17/2016 Performed by Zeeshan Huerta MD at [facility] INSERTION TRIAL STIMULATOR SPINAL CORD N/A 03/01/2017 Performed by Zeeshan Hureta MD at [facility] Lumbar L4/5 ESIx1 N/A 11/23/2016 Performed by Zeeshan Huerta MD at [facility] LUMBAR SPINE SURGERY 10/29/2012 microdiscectomy, left side MICRO LUMBAR DISCECTOMY L5-S1 RIGHT Right 07/21/2019 Performed by Eugene Patricia MD at [facility] RADIO FREQUENCY ABLATION L2/3,3/4 Left 08/10/2016 Performed by Zeeshan Huerta MD at [facility] RADIO FREQUENCY ABLATION L2/3,3/4 Right 07/27/2016 Performed by Zeeshan Huerta MD at [facility] RADIOFREQUENCY ABLATION SPINAL Left L 4/5, 5/ Left 03/01/2023 Performed by Zeeshan Huerta MD at [facility] RADIOFREQUENCY ABLATION SPINAL right L 4/5, 07/23 Right 03/29/2023 Performed by Zeeshan Huerta MD at [facility] Current Outpatient Medications on File Prior to Visit Medication Sig Dispense Refill albuterol (VENTOLIN HFA) 90 mcg/actuation inhaler Inhale 2 puffs every 4 (four) hours as needed forwheezing or shortness of breath Indications: asthma attack. Uses most days aspirin 81 mg Take 1 tablet (81 mg total) by mouth in the morning. Indications: blood clot prevention following percutaneous coronary intervention. Ok to resume 06/18/23. carisoprodoL (SOMA) 350 mg tablet Take 1 tablet (350 mg total) by mouth in the morning and 1 tablet(350 mg total) before bedtime. Indications: muscle spasm. clindamycin (CLEOCIN) 300 mg capsule Take 1 capsule (300 mg total) by mouth 3 (three) times a day. Dental infection dapagliflozin (FARXIGA) 10 mg tablet Take 1 tablet (10 mg total) by mouth in the morning. Indications: type 2 diabetes mellitus. HOLD 3 DAYS PRIOR TO SURGERY. finasteride (PROSCAR) 5 mg tablet Take 1 tablet (5 mg total) by mouth in the morning. Indications: enlarged prostate with urination problem. hydroCHLOROthiazide (HYDRODIURIL) 25 mg tablet Take 1 tablet (25 mg total) by mouth daily Indications: high blood pressure. insulin glargine U-300 conc (TOUJEO MAX U-300 SOLOSTAR) 300 unit/mL (3 mL) insulin pen Inject 40 Unit under the skin Daily before evening meal Indications: type 2 diabetes mellitus. lisinopriL (PRINIVIL,ZESTRIL) 2.5 mg tablet Take 1 tablet (2.5 mg total) by mouth in the morning. Indications: high blood pressure. meloxicam (MOBIC) 15 mg tablet Take 1 tablet (15 mg total) by mouth in the morning and 1 tablet (15mg total) before bedtime. States is holding for surgery last dose 05/30/23. metFORMIN (GLUCOPHAGE) 500 mg tablet Take 1 tablet (500 mg total) by mouth in the morning and 1 tablet (500 mg total) in the evening. Take with meals. Indications: type 2 diabetes mellitus. metoprolol tartrate (LOPRESSOR) 25 mg tablet Take 1 tablet (25 mg total) by mouth in the morning and 1 tablet (25 mg total) before bedtime. Indications: high blood pressure. nicotine (NICODERM CQ) 21 mg/[address] 1 patch on the skin daily. 7 patch 0 pantoprazole (PROTONIX) 40 mg EC tablet Take 1 tablet (40 mg total) by mouth in the morning and 1 tablet (40 mg total) before bedtime. pregabalin (LYRICA) 150 mg capsule Take 1 capsule (150 mg total) by mouth 3 (three) times a day. (Patient taking differently: Take 1 capsule (150 mg total) by mouth in the morning and 1 capsule (150 mg total) before bedtime. PAIN.) 90 capsule 1 rosuvastatin (CRESTOR) 20 mg tablet Take 1 tablet (20 mg total) by mouth in the morning. HIGH CHOLESTEROL. STIOLTO RESPIMAT 2.5-2.5 mcg/actuation mist Take 2 puffs by mouth every morning. asthma tamsulosin (FLOMAX) 0.4 mg capsule Take 1 capsule (0.4 mg total) by mouth in the morning. Indications: enlarged prostate with urination problem. amitriptyline (ELAVIL) 50 mg tablet Take 1 tablet (50 mg total) by mouth nightly. (Patient not taking: Reported on 06/06/2023) 0 No current facility-administered medications on file prior to visit. Allergies Allergen Reactions Cephalexin Itching Exam; Vss Cooperaive Nc/at Wound c/d/I Voice and swallowing are good Motor/sensory stable Ambulatory CN intact Refelxes deferred Films reviewed - I shwoed him the arthroplasty devices on the imaging A/PP: 48 y/o male - s/p 2 level arthroplasty I would like to see him back in about Dec 2023 with repeat ap, lateral and flex-ex c-spine x-rays No motor/sensory deficit Some mild pain in right shoulder seems more muscular EUGENE PATRICIA MD documented in this encounterWhite Hospital05-16-2024 Instructions* Patient Instructions* Hafsa Zhang CMA - 08/08/2023 12:00 PM EDT Patient was seen today by Patient will follow up in with imaging prior KK documented in this encounterWhite Hospital05-08-2024 History of Present illness Narrative* Edy Mansfield PA-C - 07/31/2023 3:00 PM EDT [facility] [address] [place] [address] Patient: Zeeshan Llanos Sex: male : 1975 Age: 48 y.o. PCP: CRYSTAL CARMONA MD 07/31/2023 Zeeshan Llanos is here for a(n) follow up. He reports his low back pain is still under good control since his Lumbar RFA, but his SI joint pain is worse. Chief Complaint Patient presents with Back Pain HPI: PT/HEP @2018 12/24/2021 caudal with 60% relief and much improved physical functioning 08/03/2022 Left SI joint inj with 60% relief 09/28/2022 Bilat L 4/5 5/1 MBB with 80% relief for one week 11/16/22 Alexis L4/5, 5/ MBB 80% for 1-2 days, now back to baseling 03/01/2023 Left L4/5, 5/1 RFA with 50% relief 03/29/2023 Right L4/5, 5/1 RFA with 50% relief Back Pain This is a chronic problem. The current episode started more than 1 year ago. The problem occurs 2 to 4 times per day. The problem has been gradually worsening since onset. The pain is present in the lumbar spine, gluteal and sacro-iliac (Left glute and lateral thigh). The quality of the pain is described as aching and shooting (sharp). The pain radiates to the left thigh (left glute and lateral thigh). The pain is at a severity of 7/10. The pain is moderate. The pain is Worse during the day (worse towards the evening). The symptoms are aggravated by bending, sitting, standing and twisting. Stiffness is present In the morning. Associated symptoms include leg pain (left lateral thigh). Pertine nt negatives include no abdominal pain, bladder incontinence, bowel incontinence, chest pain, fever, numbness, tingling or weakness. He has tried NSAIDs, muscle relaxant, walking, home exercises and analgesics (hx of injections in the past w/ sig relief ) for the symptoms. The treatment provided moderate (09/28/2022 Bilat L 4/5 5/1 MBB with 80% relief for one week) relief. The effect of pain on patient's ADLS: Moderate Impairment. Past Medical History: Diagnosis Date Arthritis Asthma Back pain spinal cord stimulator Chronic pain disorder Coronary artery disease 2020 stents x3 Dental disease broken teeth, on ATB for dental infection started 06/05/23 Diabetes mellitus type 2, controlled [place] oral meds and insulin Fractures rt hand boxers fx GERD (gastroesophageal reflux disease) Hyperlipidemia Hypertension Injury of back Lumbar disc disease DC (myocardial infarction) [place] 2020 DC (myocardial infarction) [place] 02/24/2022 Neuropathy Psoriasis uses a cream prn Spinal stenosis of cervical region no injections to area, denies injury Visual impairment wears glasses Past Surgical History: Procedure Laterality Date BLOCK MEDIAL BRANCH NERVE Bilateral 11/16/2016 Performed by Zeeshan Huerta MD at [facility] C5-7 Cervical Arthroplasty N/A 06/10/2023 Performed by Eugene Patricia MD at [facility] CORONARY ANGIOPLASTY WITH STENT PLACEMENT 2020 CORONARY ANGIOPLASTY WITH STENT PLACEMENT 02/24/2022 HERNIA REPAIR umbilical, late 30's early 40's INJECTION BLOCK EPIDURAL CAUDAL STEROID N/A 01/12/2022 Performed by Zeeshan Huerta MD at [facility] INJECTION BLOCK NERVE MEDIAL BRANCH Bilat L 4/5, 5/1 Bilateral 11/16/2022 Performed by Zeeshan Huerta MD at [facility] INJECTION BLOCK NERVE MEDIAL BRANCH Bilat L 4/5,5/1 Bilateral 09/28/2022 Performed by Zeeshan Huerta MD at [facility] INJECTION BLOCK SACROILIAC JOINT Left 08/03/2022 Performed by Zeeshan Huerta MD at [facility] INJECTION MEDIAL BRANCH NERVE BLOCK Bilateral L 4/5, 5/1 Bilateral 01/09/2019 Performed by Zeeshan Huerta MD at [facility] INJECTION NERVE BLOCK Right Sciatic Right 04/17/2019 Performed by Zeeshan Huerta MD at [facility] INJECTION NERVE ROOT LEFT L5,1 Left 09/21/2016 Performed by Zeeshan Huerta MD at [facility] INJECTION SI JOINT Bilateral SI Joint Bilateral 02/06/2019 Performed by Zeeshan Huerta MD at [facility] INJECTION SI JOINT Bilateral SI Joint Bilateral 12/12/2018 Performed by Zeeshan Huerta MD at [facility] INJECTION STEROID EPI 1 WITH SEDATION Right L 5, 1 NR Right 05/01/2019 Performed by Zeeshan Huerta MD at [facility] INJECTION STEROID EPI 1 WITH SEDATION: L45 parmjit x 1 N/A 12/17/2016 Performed by Zeeshan Huerta MD at [facility] INSERTION TRIAL STIMULATOR SPINAL CORD N/A 03/01/2017 Performed by [facility]han [facility]erta MD at [facility] [facility] Lumbar L4/5 ESIx1 N/A 11/23/2016 Performed by Zeeshan Huerta MD at [facility] LUMBAR SPINE SURGERY 10/29/2012 microdiscectomy, left side MICRO LUMBAR DISCECTOMY L5-S1 RIGHT Right 07/21/2019 Performed by Eugene Patricia MD at [facility] RADIO FREQUENCY ABLATION L2/3,3/4 Left 08/10/2016 Performed by Zeeshan Huerta MD at [facility] RADIO FREQUENCY ABLATION L2/3,3/4 Right 07/27/2016 Performed by Zeeshan Huerta MD at [facility] RADIOFREQUENCY ABLATION SPINAL Left L 4/5, / Left 03/01/2023 Performed by Zeeshan Huerta MD at [facility] RADIOFREQUENCY ABLATION SPINAL right L 4/5, 07/23 Right 03/29/2023 Performed by Zeeshan Huerta MD at [facility] Allergies Allergen Reactions Cephalexin Itching Family History Problem Relation Age of Onset Epilepsy Mother Seizures Mother Hypertension Father Heart disease Father Cancer Father Diabetes Father Back Problems Father Pancreatitis Father Neck Problems Father Heart disease Brother Diabetes Brother Anesthesia problems Neg Hx Social History Socioeconomic History Marital status: Spouse name: Not on file Number of children: Not on file Years of education: Not on file Highest education level: Not on file Occupational History Not on file Tobacco Use Smoking status: Every Day Current packs/day: 1.50 Average packs/day: 1.5 packs/day for 31.0 years (46.6 ttl pk-yrs) Types: Cigarettes Start date: 07/15/1992 Smokeless tobacco: Former Types: Chew Quit date: 07/15/2018 Vaping Use Vaping status: Never Used Substance and Sexual Activity Alcohol use: Not Currently Comment: rarely Drug use: No Sexual activity: Defer Other Topics Concern Not on file Social History Narrative Not on file Social Determinants of Health Financial Resource Strain: Not on file Food Insecurity: No Food Insecurity (07/31/2023) Hunger Screening Food Insecurity - Worry: Never True Food Insecurity - Inability: Never True Transportation Needs: No Transportation Needs (06/11/2023) PRAPARE - Transportation Lack of Transportation (Medical): No Lack of Transportation (Non-Medical): No Physical Activity: Not on file Stress: Not on file Social Connections: Not on file Interpersonal Safety: Not At Risk (06/11/2023) Humiliation, Afraid, Rape, and Kick questionnaire Fear of Current or Ex-Partner: No Emotionally Abused: No Physically Abused: No Sexually Abused: No Housing Instability: Low Risk (06/11/2023) Housing Instability Housing Instability: No Review of Systems Constitutional: Negative for chills and fever. HENT: Negative for congestion, rhinorrhea and sore throat. Respiratory: Negative for cough and shortness of breath. Cardiovascular: Negative for chest pain. Gastrointestinal: Negative for abdominal pain, bowel incontinence, nausea and vomiting. Genitourinary: Negative for bladder incontinence. Musculoskeletal: Positive for back pain. Skin: Negative for rash and wound. Neurological: Negative for tingling, weakness and numbness. Psychiatric/Behavioral: Negative. Vital Signs: BP 121/76 (BP Site: Right Arm, BP Postition: Sitting) Pulse 70 SpO2 97% Physical Exam: GENERAL - Healthy patient that appears stated age. HEENT - Normocephalic / Atraumatic, Extraoccular movements intact, trachea midline, thyroid within normal limits. CV - pulse regular, Warm extremities with appropriate color of nailbeds. RESP - No obvious wheezing, No Shortness of Breath, No overexertion response to exam maneuvers. COORDINATION - remains intact. PSYCH - Alert and Oriented x4, Attentive and appropriate, constitutionally normal, displays normal mood and affect per situation, answered questions appropriately during examination, demonstrated appropriate attention during discussion, demonstrated appropriate cognitive reasoning and understandingof the medical condition by asking appropriate questions regarding the diagnosis and risks/benefits/alternatives of treatment modalities. No obvious deficits in memory, reasoning, or intellect. Lumbar: SKIN - No rashes or bruising in the area of the patient s pain. LYMPH NODES - demonstrate no obvious enlargement. EXTREMITIES - Lower extremities are warm, with minimal edema and palpable pulses. Minimal tenderness to palpation noted in the lumbar spine and paraspinal musculature. Pain is elicited with flexion, extension, and lateral rotation of the lumbar spine. Range of motion is diminishedwith these motions due to pain. Facet palpation is noted to be mildly painful and facet loading maneuvers elicit pain that is concordant with the patient s normal pain complaints. Some muscle spasm is noted in the overlying musculature. STRENGTH - noted to be 5 out of 5 all muscle groups bilateral lower extremities including muscles involving hip flexion and abduction, knee flexion and extension, as well as foot dorsiflexion and plantarflexion. No notable atrophy, fasciculations or spasm. SENSORY - No notable sensory deficits in the bilateral lower extremities to touch or pinprick in all dermatomal distributions. Straight Leg Raise is negative bilaterally. Tenderness to palpation is noted over the Bilateral left greater than right SacroIliac Joint: Fabere sign (Tien's Test) is significantly positive, as is compression and distraction of the sacroiliac joints, which is consistent with some of the patient's normal pain. Hyperalgesia noted over the bilateral left greater than right cluneal nerve distributions. Gait is normal. Assessment/Treatment Plan: Zeeshan was seen today for back pain. 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 It is felt to be medically necessary noting that the patient has tried and failed more conservative modalities of therapy and this is the next most appropriate step. The procedure was described in detail to the patientas well as the potential benefits of pain reduction alongside risks of the procedure and alternatives. Risks were described as including, but not limited to bleeding, infection, nerve damage, spinal cord injury, paralysis, stroke, dural puncture headache, and medication reaction. The patient expressed understanding regarding the risks and benefits and wishes to proceed. Cluneal nerve injections should provide information to confirm that the cluneal nerves are the patient s most significant pain generator. If this provides significant but only temporary pain relief, the patient may in the future be a candidate for radiofrequency denervation of the cluneal nerves toprovide pain relief for approximately 1 year. Follow up 2 weeks after procedure The medications I have prescribed have been reviewed for medication interactions/contraindications and/or for upcoming procedures: continue current medication regimen without any changes. DISCUSSION: Treatment options discussed with patient and all questions answered to patient's satisfaction. Discussed the rules and regulations surrounding prescription of opioids and compliance at length. Failure to follow the rules and regulation will result in tapering and discontinuation of medications if applicable. The patient has been instructed as to the type of medication prescribed alongwith directions for use. Potential side effects have been discussed, along with risks and benefits of taking this medication. (S)he was instructed as to what to do if (s)he experiences side effects, including when to discontinue the medication. (S)he was advised to call this office in this event. Also discussed at length safety and security of RX and medications. Due to the high risk nature of this patient's pain medication regimen, frequent office visit refill appointments (every 1-3 months) are medically necessary to monitor for an addiction disorder. Prescribed medication that requires intensive monitoring for toxicity Lyrica. OARRS was reviewed, discussed and appropriate for medications prescribed. Treatment plans discussed but not opted for at this time: Repeat Cluneal nerve block injection. Patient would like to proceed with the current outlined treatment plan before moving forward with any other options. The spine model was demonstrated and MRI was reviewed and used to explain the condition. Chronic conditions not treated during this visit that affected my overall medical decision making: Comorbidity- Diabetes The patient has a history of diabetes mellitus currently managed with medications. This will need to be considered prior to any procedure that would require the injection of steroid in that the patient may experience a transient increase in glucose as a result. Additional consideration will need kristin given to timing the procedure early in the morning in that the patient will need to be fasting prior to the administration of anesthesia. Every effort will be made to perform the procedure as a 1st case due to this condition. And the patient will be instructed to hold their diabetic medications on that morning. If necessary, a blood glucose test can also be performed that morning. The risks/ benefits/ and alternatives will be weighed and explained to the patient prior to any procedure. OARRS: Reviewed. Scribe Statement: Scribed for and in the presence of EDY MANSFIELD PA-C by Luba Harris CNA. Provider Statement: IEDY PA-C, personally performed the services described in the documentation, as scribed by Luba Harris CNA in my presence, and it is both accurate and complete. Luba Harris CNA 07/31/23 1315 Edy Mansfield PA-C 07/31/23 1338 [facility] Instructions* Patient Instructions* Luba Harris CNA - 07/31/2023 3:00 PM EDT Epidural Steroid Injection (PARMJIT) / Nerve Root Injection / Nerve Block These procedure(s) involve the injection of a steroid and anesthetic into the epidural space or thenerve sheath that is both diagnostic and potentially therapeutic for alleviating discomfort of the legs and arms secondary to compression of the respective nerves due to bulging discs, bone spurs andother potential causes. Steroids are potent anti-inflammatory drugs that act to decrease the swollen and inflamed nerves thus relieving your clinical symptoms. How Long Will This Procedure Last? The extent and duration of pain relief may depend on the amount of inflammation and how many areas are involved. Other coexisting factors may be responsible for your pain. You and your physician will discuss expected results of procedure(s). After Your Injection You may experience soreness and tenderness at the area of treatment. This pain may not occur until later today after the numbing medicine wears off. The steroid can take 3-5 days to work and provide noticeable improvement. Activity You may feel temporary numbness, weakness or tingling: In the neck, arm, or fingertips (if your procedure was done in your neck) In the legs (if your procedure was done in your lower back) These symptoms are normal, and should subside within 3-4 hours. In that time, be careful to avoid falls. As a safety precaution, you must have a food mobile driver after a lumbar nerve root injection, even if you do not receive sedation. Resume activity as tolerated when function has returned. Medications Resume your routine medications after your procedure. You may resume blood thinners per your regular schedule after the procedure. If you received sedation: If you received sedation for your procedure, you may feel sleepy or not yourself for several hours today. For the next 24 hours avoid activities that requires alertness or coordination. This includes: Driving or operating heavy machinery Using power tools Consuming alcohol Do not make important or complex decisions or sign legal documents in the next 24 hours. Other Instructions: If you feel severe pain at the injection site with swelling and redness, increased leg weakness, a fever of 101 or higher, headache (or worsening headache), changes in vision or urinary retention: Please call the office at , or have someone take you to the nearest emergency room. Tellthe emergency room staff that you recently had a spine injection. A doctor must evaluate you for bleeding and injection complications. If you lose control over bowel, bladder, or legs: Go to the nearest emergency room. If you are diabetic, the steroids used in this procedure can increase your blood sugar. If your blood sugar is 250mg/dL or higher, contact your primary care physician, or the doctor who manages your diabetes, to discuss how to get it back to normal. documented in this encounterPro[facility] History of Present illness Narrative* Gladis Cast - 06/27/2023 10:00 AM EDT In person visit CC: 2 week post-op s/p C5-C7 cervical arthroplasty for multi-level cervical spondylolysis, foraminal stenosis with symptoms of bilateral neck and arm pain HPI: 47 y/o man presenting today for 2 week post-op s/p C5-C7 cervical arthroplasty for multi-level cervical spondylolysis, foraminal stenosis with symptoms of bilateral neck and arm pain. Overall doing well. ROM of neck has improved since surgery. Denies any pain, stiffness, or decrease sensation in cervical area or bilateral arms. Numbness on L fingertips. Takes 1 tab of [place] about every 1-2 days to manage pain. Does report that he has a weird sensation in posterior cervical area - does not describe it as pain or stiffness, but is prominent when he has forward flexion. 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 Will need to complete disability paperwork ROS: Review of Systems Constitutional: Negative for fever. HENT: Positive for trouble swallowing. Improvement of swallowing foods Respiratory: Negative for choking and shortness of breath. Cardiovascular: Negative for chest pain. Musculoskeletal: Negative for neck pain and neck stiffness. Neurological: Positive for headaches. CUELLO not a new complaint Past Medical History: Diagnosis Date Arthritis Asthma Back pain spinal cord stimulator Chronic pain disorder Coronary artery disease 2020 stents x3 Dental disease broken teeth, on ATB for dental infection started 06/05/23 Diabetes mellitus type 2, controlled [place] [place] oral meds and insulin Fractures rt hand boxers fx GERD (gastroesophageal reflux disease) Hyperlipidemia Hypertension Injury of back Lumbar disc disease [place] (myocardial infarction) [place] [place] 2020 [place] (myocardial infarction) [place] [place] 02/24/2022 Neuropathy Psoriasis uses a cream prn Spinal stenosis of cervical region no injections to area, denies injury Visual impairment wears glasses Past Surgical History: Procedure Laterality Date BLOCK MEDIAL BRANCH NERVE Bilateral 11/16/2016 Performed by Zeeshan Huerta MD at [facility] C5-7 Cervical Arthroplasty N/A 06/10/2023 Performed by Eugene Patricia MD at [facility] CORONARY ANGIOPLASTY WITH STENT PLACEMENT 2020 CORONARY ANGIOPLASTY WITH STENT PLACEMENT 02/24/2022 HERNIA REPAIR umbilical, late 30's early 40's INJECTION BLOCK EPIDURAL CAUDAL STEROID N/A 01/12/2022 Performed by Zeeshan Huerta MD at [facility] INJECTION BLOCK NERVE MEDIAL BRANCH Bilat L 4/5, 5/1 Bilateral 11/16/2022 Performed by Zeeshan Huerta MD at [facility] INJECTION BLOCK NERVE MEDIAL BRANCH Bilat L 4/5,5/1 Bilateral 09/28/2022 Performed by Zeeshan Huerta MD at [facility] INJECTION BLOCK SACROILIAC JOINT Left 08/03/2022 Performed by Zeeshan Huerta MD at [facility] INJECTION MEDIAL BRANCH NERVE BLOCK Bilateral L 4/5, 5/1 Bilateral 01/09/2019 Performed by Zeeshan Huerta MD at [facility] NERVE BLOCK Right Sciatic Right 04/17/2019 Performed by Zeeshan Huerta MD at [facility] NERVE ROOT LEFT L5,1 Left 09/21/2016 Performed by Zeeshan Huerta MD at [facility] SI JOINT Bilateral SI Joint Bilateral 02/06/2019 Performed by Zeeshan Huerta MD at [facility] INJECTION SI JOINT Bilateral SI Joint Bilateral 12/12/2018 Performed by Zeeshan Huerta MD at [facility] INJECTION STEROID EPI 1 WITH SEDATION Right L 5, 1 NR Right 05/01/2019 Performed by Zeeshan Huerta MD at [facility] INJECTION STEROID EPI 1 WITH SEDATION: L45 parmjit x 1 N/A 12/17/2016 Performed by Zeeshan Huerta MD at [facility] INSERTION TRIAL STIMULATOR SPINAL CORD N/A 03/01/2017 Performed by Zeeshan Huerta MD at [facility] Lumbar L4/5 ESIx1 N/A 11/23/2016 Performed by Zeeshan Huerta MD at [facility] LUMBAR SPINE SURGERY 10/29/2012 microdiscectomy, left side MICRO LUMBAR DISCECTOMY L5-S1 RIGHT Right 07/21/2019 Performed by Eugene Patricia MD at [facility] RADIO FREQUENCY ABLATION L2/3,3/4 Left 08/10/2016 Performed by Zeeshan Huerta MD at [facility] RADIO FREQUENCY ABLATION L2/3,3/4 Right 07/27/2016 Performed by Zeeshan Huerta MD at [facility] RADIOFREQUENCY ABLATION SPINAL Left L 4/5, 5/1 Left 03/01/2023 Performed by Zeeshan Huerta MD at [facility] RADIOFREQUENCY ABLATION SPINAL right L 06/27, 07/23 Right 03/29/2023 Performed by Zeeshan Huerta MD at [facility] Current Outpatient Medications on File Prior to Visit Medication Sig Dispense Refill albuterol (VENTOLIN HFA) 90 mcg/actuation inhaler Inhale 2 puffs every 4 (four) hours as needed forwheezing or shortness of breath Indications: asthma attack. Uses most days aspirin 81 mg Take 1 tablet (81 mg total) by mouth in the morning. Indications: blood clot prevention following percutaneous coronary intervention. Ok to resume 06/18/23. carisoprodoL (SOMA) 350 mg tablet Take 1 tablet (350 mg total) by mouth in the morning and 1 tablet(350 mg total) before bedtime. Indications: muscle spasm. clindamycin (CLEOCIN) 300 mg capsule Take 1 capsule (300 mg total) by mouth 3 (three) times a day. Dental infection dapagliflozin (FARXIGA) 10 mg tablet Take 1 tablet (10 mg total) by mouth in the morning. Indications: type 2 diabetes mellitus. HOLD 3 DAYS PRIOR TO SURGERY. finasteride (PROSCAR) 5 mg tablet Take 1 tablet (5 mg total) by mouth in the morning. Indications: enlarged prostate with urination problem. hydroCHLOROthiazide (HYDRODIURIL) 25 mg tablet Take 1 tablet (25 mg total) by mouth daily Indications: high blood pressure. insulin glargine U-300 conc (TOUJEO MAX U-300 SOLOSTAR) 300 unit/mL (3 mL) insulin pen Inject 40 Unit under the skin Daily before evening meal Indications: type 2 diabetes mellitus. lisinopriL (PRINIVIL,ZESTRIL) 2.5 mg tablet Take 1 tablet (2.5 mg total) by mouth in the morning. Indications: high blood pressure. meloxicam (MOBIC) 15 mg tablet Take 1 tablet (15 mg total) by mouth in the morning and 1 tablet (15mg total) before bedtime. States is holding for surgery last dose 05/30/23. metFORMIN (GLUCOPHAGE) 500 mg tablet Take 1 tablet (500 mg total) by mouth in the morning and 1 tablet (500 mg total) in the evening. Take with meals. Indications: type 2 diabetes mellitus. metoprolol tartrate (LOPRESSOR) 25 mg tablet Take 1 tablet (25 mg total) by mouth in the morning and 1 tablet (25 mg total) before bedtime. Indications: high blood pressure. nicotine (NICODERM CQ) 21 mg/[address] 1 patch on the skin daily. 7 patch 0 pantoprazole (PROTONIX) 40 mg EC tablet Take 1 tablet (40 mg total) by mouth in the morning and 1 tablet (40 mg total) before bedtime. pregabalin (LYRICA) 150 mg capsule Take 1 capsule (150 mg total) by mouth 3 (three) times a day. (Patient taking differently: Take 1 capsule (150 mg total) by mouth in the morning and 1 capsule (150 mg total) before bedtime. PAIN.) 90 capsule 1 rosuvastatin (CRESTOR) 20 mg tablet Take 1 tablet (20 mg total) by mouth in the morning. HIGH CHOLESTEROL. STIOLTO RESPIMAT 2.5-2.5 mcg/actuation mist Take 2 puffs by mouth every morning. asthma tamsulosin (FLOMAX) 0.4 mg capsule Take 1 capsule (0.4 mg total) by mouth in the morning. Indications: enlarged prostate with urination problem. amitriptyline (ELAVIL) 50 mg tablet Take 1 tablet (50 mg total) by mouth nightly. (Patient not taking: Reported on 06/06/2023) 0 No current facility-administered medications on file prior to visit. Allergies Allergen Reactions Cephalexin Itching Social History Socioeconomic History Marital status: Spouse name: Not on file Number of children: Not on file Years of education: Not on file Highest education level: Not on file Occupational History Not on file Tobacco Use Smoking status: Every Day Packs/day: 1.50 Years: 31.00 Additional pack years: 0.00 Total pack years: 46.50 Types: Cigarettes Start date: 07/15/1992 Smokeless tobacco: Former Types: Chew Quit date: 07/15/2018 Vaping Use Vaping Use: Never used Substance and Sexual Activity Alcohol use: Not Currently Comment: rarely Drug use: No Sexual activity: Defer Other Topics Concern Not on file Social History Narrative Not on file Social Determinants of Health Financial Resource Strain: Not on file Food Insecurity: No Food Insecurity (06/11/2023) Hunger Screening Food Insecurity - Worry: Never True Food Insecurity - Inability: Never True Transportation Needs: No Transportation Needs (06/11/2023) PRAPARE - Transportation Lack of Transportation (Medical): No Lack of Transportation (Non-Medical): No Physical Activity: Not on file Stress: Not on file Social Connections: Not on file Interpersonal Safety: Not At Risk (06/11/2023) Humiliation, Afraid, Rape, and Kick questionnaire Fear of Current or Ex-Partner: No Emotionally Abused: No Physically Abused: No Sexually Abused: No Housing Instability: Low Risk (06/11/2023) Housing Instability Housing Instability: No Exam BP 117/82 Pulse 74 Ht 182.9 cm (6' 0.01 ) Wt 93 kg (205 lb) BMI 27.80 kg/m Mood/affect normal NC/AT Reasonably groomed and attired Neurological: Awake, alert, oriented x 3 CN intact Speech intact Cognition intact Motor No focal motor deficit Equal AROM of cervical flexion and extension. Describes some tightness in posterior neck with flexion. Equal AROM of cervical R and L rotation with almost full ROM on both sides. Sensory of bilateral arms and cervical area intact Gait intact Station normal Coordination intact Incision: well healing anterior neck incision Review of films: I personally reviewed and interpreted the patient's imaging during the clinic visit A/P: Multi-level cervical spondylolysis and foraminal stenosis s/p C5-C7 cervical arthroplasty on 06/10/2023 Follow up in 1 month Discussed care of incision Discussed physical limitations including weight and activity limitations. Continue increasing activities to baseline for work Continue pain meds PRN Complete disability paperwork T2DM Continue to control blood sugar Kar Cast (Nikki), MS3 [facility] * Eugene Patricia MD - 06/27/2023 10:00 AM EDT Expand All Collapse All In person visit CC: 2 week post-op s/p C5-C7 cervical arthroplasty for multi-level cervical spondylolysis, foraminal stenosis with symptoms of bilateral neck and arm pain HPI: 47 y/o man presenting today for 2 week post-op s/p C5-C7 cervical arthroplasty for multi-level cervical spondylolysis, foraminal stenosis with symptoms of bilateral neck and arm pain. Overall doing well. ROM of neck has improved since surgery. Denies any pain, stiffness, or decrease sensation in cervical area or bilateral arms. Numbness on L fingertips. Takes 1 tab of [place] about every 1-2 days to manage pain. Does report that he has a weird sensation in posterior cervical area - does not describe it as pain or stiffness, but is prominent when he has forward flexion. 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 Will need to complete disability paperwork ROS: Review of Systems Constitutional: Negative for fever. HENT: Positive for trouble swallowing. Improvement of swallowing foods Respiratory: Negative for choking and shortness of breath. Cardiovascular: Negative for chest pain. Musculoskeletal: Negative for neck pain and neck stiffness. Neurological: Positive for headaches. CUELLO not a new complaint Medical History Past Medical History: Diagnosis Date Arthritis Asthma Back pain spinal cord stimulator Chronic pain disorder Coronary artery disease 2020 stents x3 Dental disease broken teeth, on ATB for dental infection started 06/05/23 Diabetes mellitus type 2, controlled [place] [place] oral meds and insulin Fractures rt hand boxers fx GERD (gastroesophageal reflux disease) Hyperlipidemia Hypertension Injury of back Lumbar disc disease [place] (myocardial infarction) [place] [place] 2020 [place] (myocardial infarction) [place] [place] 02/24/2022 Neuropathy Psoriasis uses a cream prn Spinal stenosis of cervical region no injections to area, denies injury Visual impairment wears glasses Surgical History Past Surgical History: Procedure Laterality Date BLOCK MEDIAL BRANCH NERVE Bilateral 11/16/2016 Performed by Zeeshan Huerta MD at [facility] C5-7 Cervical Arthroplasty N/A 06/10/2023 Performed by Eugene Patricia MD at [facility] CORONARY ANGIOPLASTY WITH STENT PLACEMENT 2020 CORONARY ANGIOPLASTY WITH STENT PLACEMENT 02/24/2022 HERNIA REPAIR umbilical, late 30's early 40's INJECTION BLOCK EPIDURAL CAUDAL STEROID N/A 01/12/2022 Performed by Zeeshan Huerta MD at [facility] BLOCK NERVE MEDIAL BRANCH Bilat L 4/5, 5/1 Bilateral 11/16/2022 Performed by Zeeshan Huerta MD at [facility] INJE[facility] BLOCK NERVE MEDIAL BRANCH Bilat L 4/5,5/1 Bilateral 09/28/2022 Performed by Zeeshan Huerta MD at [facility] INJECTION BLOCK SACROILIAC JOINT Left 08/03/2022 Performed by Zeeshan Huerta MD at [facility] MEDIAL BRANCH NERVE BLOCK Bilateral L 4/5, 5/1 Bilateral 01/09/2019 Performed by Zeeshan Huerta MD at [facility] NERVE BLOCK Right Sciatic Right 04/17/2019 Performed by Zeeshan Huerta MD at [facility] NERVE ROOT LEFT L5,1 Left 09/21/2016 Performed by Zeeshan Huerta MD at [facility] SI JOINT Bilateral SI Joint Bilateral 02/06/2019 Performed by Zeeshan Huerta MD at [facility] INJECTION SI JOINT Bilateral SI Joint Bilateral 12/12/2018 Performed by Zeeshan Huerta MD at [facility] INJECTION STEROID EPI 1 WITH SEDATION Right L 5, 1 NR Right 05/01/2019 Performed by Zeeshan Huerta MD at [facility] INJECTION STEROID EPI 1 WITH SEDATION: L45 parmjit x 1 N/A 12/17/2016 Performed by Zeeshan Huerta MD at [facility] INSERTION TRIAL STIMULATOR SPINAL CORD N/A 03/01/2017 Performed by Zeeshan Huerta MD at [facility] Lumbar L4/5 ESIx1 N/A 11/23/2016 Performed by Zeeshan Huerta MD at [facility] LUMBAR SPINE SURGERY 10/29/2012 microdiscectomy, left side MICRO LUMBAR DISCECTOMY L5-S1 RIGHT Right 07/21/2019 Performed by Eugene Patricia MD at [facility] RADIO FREQUENCY ABLATION L2/3,3/4 Left 08/10/2016 Performed by Zeeshan Huerta MD at [facility] RADIO FREQUENCY ABLATION L2/3,3/4 Right 07/27/2016 Performed by Zeeshan Huerta MD at [facility] RADIOFREQUENCY ABLATION SPINAL Left L 4/5, 5/1 Left 03/01/2023 Performed by Zeeshan Huerta MD at [facility] RADIOFREQUENCY ABLATION SPINAL right L 4/5, 5/1 Right 03/29/2023 Performed by Zeeshan Huerta MD at [facility] Current Outpatient Medications on File Prior to Visit Medication Sig Dispense Refill albuterol (VENTOLIN HFA) 90 mcg/actuation inhaler Inhale 2 puffs every 4 (four) hours as needed forwheezing or shortness of breath Indications: asthma attack. Uses most days aspirin 81 mg Take 1 tablet (81 mg total) by mouth in the morning. Indications: blood clot prevention following percutaneous coronary intervention. Ok to resume 06/18/23. carisoprodoL (SOMA) 350 mg tablet Take 1 tablet (350 mg total) by mouth in the morning and 1 tablet(350 mg total) before bedtime. Indications: muscle spasm. clindamycin (CLEOCIN) 300 mg capsule Take 1 capsule (300 mg total) by mouth 3 (three) times a day. Dental infection dapagliflozin (FARXIGA) 10 mg tablet Take 1 tablet (10 mg total) by mouth in the morning. Indications: type 2 diabetes mellitus. HOLD 3 DAYS PRIOR TO SURGERY. finasteride (PROSCAR) 5 mg tablet Take 1 tablet (5 mg total) by mouth in the morning. Indications: enlarged prostate with urination problem. hydroCHLOROthiazide (HYDRODIURIL) 25 mg tablet Take 1 tablet (25 mg total) by mouth daily Indications: high blood pressure. insulin glargine U-300 conc (TOUJEO MAX U-300 SOLOSTAR) 300 unit/mL (3 mL) insulin pen Inject 40 Unit under the skin Daily before evening meal Indications: type 2 diabetes mellitus. lisinopriL (PRINIVIL,ZESTRIL) 2.5 mg tablet Take 1 tablet (2.5 mg total) by mouth in the morning. Indications: high blood pressure. meloxicam (MOBIC) 15 mg tablet Take 1 tablet (15 mg total) by mouth in the morning and 1 tablet (15mg total) before bedtime. States is holding for surgery last dose 05/30/23. metFORMIN (GLUCOPHAGE) 500 mg tablet Take 1 tablet (500 mg total) by mouth in the morning and 1 tablet (500 mg total) in the evening. Take with meals. Indications: type 2 diabetes mellitus. metoprolol tartrate (LOPRESSOR) 25 mg tablet Take 1 tablet (25 mg total) by mouth in the morning and 1 tablet (25 mg total) before bedtime. Indications: high blood pressure. nicotine (NICODERM CQ) 21 mg/[address] 1 patch on the skin daily. 7 patch 0 pantoprazole (PROTONIX) 40 mg EC tablet Take 1 tablet (40 mg total) by mouth in the morning and 1 tablet (40 mg total) before bedtime. pregabalin (LYRICA) 150 mg capsule Take 1 capsule (150 mg total) by mouth 3 (three) times a day. (Patient taking differently: Take 1 capsule (150 mg total) by mouth in the morning and 1 capsule (150 mg total) before bedtime. PAIN.) 90 capsule 1 rosuvastatin (CRESTOR) 20 mg tablet Take 1 tablet (20 mg total) by mouth in the morning. HIGH CHOLESTEROL. STIOLTO RESPIMAT 2.5-2.5 mcg/actuation mist Take 2 puffs by mouth every morning. asthma tamsulosin (FLOMAX) 0.4 mg capsule Take 1 capsule (0.4 mg total) by mouth in the morning. Indications: enlarged prostate with urination problem. amitriptyline (ELAVIL) 50 mg tablet Take 1 tablet (50 mg total) by mouth nightly. (Patient not taking: Reported on 06/06/2023) 0 No current facility-administered medications on file prior to visit. Allergies Allergen Reactions Cephalexin Itching Social History Socioeconomic History Marital status: Spouse name: Not on file Number of children: Not on file Years of education: Not on file Highest education level: Not on file Occupational History Not on file Tobacco Use Smoking status: Every Day Packs/day: 1.50 Years: 31.00 Additional pack years: 0.00 Total pack years: 46.50 Types: Cigarettes Start date: 07/15/1992 Smokeless tobacco: Former Types: Chew Quit date: 07/15/2018 Vaping Use Vaping Use: Never used Substance and Sexual Activity Alcohol use: Not Currently Comment: rarely Drug use: No Sexual activity: Defer Other Topics Concern Not on file Social History Narrative Not on file Social Determinants of Health Financial Resource Strain: Not on file Food Insecurity: No Food Insecurity (06/11/2023) Hunger Screening Food Insecurity - Worry: Never True Food Insecurity - Inability: Never True Transportation Needs: No Transportation Needs (06/11/2023) PRAPARE - Transportation Lack of Transportation (Medical): No Lack of Transportation (Non-Medical): No Physical Activity: Not on file Stress: Not on file Social Connections: Not on file Interpersonal Safety: Not At Risk (06/11/2023) Humiliation, Afraid, Rape, and Kick questionnaire Fear of Current or Ex-Partner: No Emotionally Abused: No Physically Abused: No Sexually Abused: No Housing Instability: Low Risk (06/11/2023) Housing Instability Housing Instability: No Exam BP 117/82 Pulse 74 Ht 182.9 cm (6' 0.01 ) Wt 93 kg (205 lb) BMI 27.80 kg/m Mood/affect normal NC/AT Reasonably groomed and attired Neurological: Awake, alert, oriented x 3 CN intact Speech intact Cognition intact Motor No focal motor deficit Equal AROM of cervical flexion and extension. Describes some tightness in posterior neck with flexion. Equal AROM of cervical R and L rotation with almost full ROM on both sides. Sensory of bilateral arms and cervical area intact Gait intact Station normal Coordination intact Incision: well healing anterior neck incision Review of films: I personally reviewed and interpreted the patient's imaging during the clinic visit A/P: Multi-level cervical spondylolysis and foraminal stenosis s/p C5-C7 cervical arthroplasty on 06/10/2023 Follow up in 1 month Discussed care of incision Discussed physical limitations including weight and activity limitations. Continue increasing activities to baseline for work Continue pain meds PRN Complete disability paperwork T2DM Continue to control blood sugar Kar Cast (Nikki), MS3 [facility] I personally saw and evaluated the patient in clinic today with the student. The patient is about 2weeks s/p two level cervical decompression and total disc arthroplasty. He is doing well overall. He has some soreness between the upper shoulder blades which is pretty typical for this type of surgery. His voice is good and his swallowing is returning to normal - he was having some trouble with bread initially. Overall doing well. 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 He had x-rays today so he does not need them at the next appoinemtn. FU with me in 1 month - and then if doing OK hopefully back to work about 2 weeks later. EUGENE PATRICIA MD documented in this encounterWashington [facility] HospitalFl[facility]04-[facility] Instructions* Patient Instructions* Hafsa Zhang CMA - 06/27/2023 10:00 AM EDT Patient was seen today by Patient will follow up in 1 month KK documented in [facility]Mem[facility]-19-2024 Progress note* Discharge Planning Note - Alycia Benton RN - 06/11/2023 2:29 PM EDT Images from the original note were not included. DISCHARGE PLANNING NOTE Services Requested: Services Requested Discharge Disposition: Home with self care Does the patient need discharge transportation arranged?: No Visiting Physician/Provider: Crystal Carmona M.D. Initial DC Assessment Completed: Yes Patient Goals: Goals: Goals Return home (pt-stated) Evaluation of progress towards goal: Plan to return home with spouse. Patient admitted for: Planned cervical surgery Patient discussed in discharge transition rounds: Per RN report ready for discharge today. CN spoke with patient at bedside, introduced self and explained role. Patient lives with spouse in a story home with bed/bathrooms on main floor with zero flights of stairs. Patient stated they are independent with ADL's and patient was able to drive prior to admission. Patient states that they currently do not require use of DME. Patient endorses no issue financially with being able to obtain medications or food. Patient states that they have working water, gas and electric. Patient's preferred pharmacy is Per patient self report: Drug use: deny ETOH use: deny Smoking: yes- tobacco cessation education provided, with [employer] Tobacco cessation program information given. Requested neurosurgery to order nicotine patches for discharge. PCP added to follow up provider list to receive summary of care at discharge. The following arrangements have been made to help prevent readmission. D/C Plan: home. [facility] tasked to arrange hospital follow up with PCP office. Pump Tender will continue to follow for any discharge needs. - Alycia Benton RN 06/11/23 2:37 PM [facility] [place] [id number] Miscellaneous Notes* Discharge Planning Note - Alycia Benton RN - 06/11/2023 2:29 PM EDT Images from the original note were not included. DISCHARGE PLANNING NOTE Services Requested: Services Requested Discharge Disposition: Home with self care Does the patient need discharge transportation arranged?: No Visiting Physician/Provider: Crystal Carmona M.D. Initial DC Assessment Completed: Yes Patient Goals: Goals: Goals Return home (pt-stated) Evaluation of progress towards goal: Plan to return home with spouse. Patient admitted for: Planned cervical surgery Patient discussed in discharge transition rounds: Per RN report ready for discharge today. CN spoke with patient at bedside, introduced self and explained role. Patient lives with spouse in a story home with bed/bathrooms on main floor with zero flights of stairs. Patient stated they are independent with ADL's and patient was able to drive prior to admission. Patient states that they currently do not require use of DME. Patient endorses no issue financially with being able to obtain medications or food. Patient states that they have working water, gas and electric. Patient's preferred pharmacy is Per patient self report: Drug use: deny ETOH use: deny Smoking: yes- tobacco cessation education provided, with [employer] Tobacco cessation program information given. Requested neurosurgery to order nicotine patches for discharge. PCP added to follow up provider list to receive summary of care at discharge. The following arrangements have been made to help prevent readmission. D/C Plan: home. [facility] tasked to arrange hospital follow up with PCP office. Pump Tender will continue to follow for any discharge needs. - Alycia Benton RN 06/11/23 2:37 PM * Plan of Care - Stanislav Watson RN - 06/11/2023 12:44 PM EDT Problem: Pain Goal: Patient goal is pain score less than 4, able to rest, and participant in treatment plan as appropriate Description: INTERVENTIONS: 1. Encourage patient or legal small business representative to report early pain and ask for pain medicine when needed 2. Assess pain using appropriate pain scale and include the scale used when documenting 3. Administer analgesics based on type and severity of pain and evaluate response within appropriate time frame 4. Implement non-pharmacological measures as appropriate and evaluate response 5. Consider cultural and social influences on pain and pain management 6. Notify LIP if interventions ineffective or patient reports new pain 7. Monitor vital signs including pulse ox, end-tidal CO2 based on pain intervention 8. Reassess pain per policy 9. Teach patient or legal small business representative interventions for comforting Outcome: Progressing Note: Evaluation of progress towards goal: Patient reporting pain. PRN pain medication provided. Relaxation encouraged. Emotional support given. Problem: Safety Goal: Patient will be injury free during hospitalization Description: INTERVENTIONS: 1. Assess patient's risk for falls and implement fall prevention plan of care per policy 2. Provide and maintain a safe environment 3. Proper use of double Identifiers 4. Medication administration using the 5 rights 5. Hand hygiene 6. Specimens are labeled at the bedside 7. Instruct patient/ patient small business representative about use of safety devices 8. Include patient/ patient small business representative in decisions related to safety Outcome: Progressing Note: Evaluation of progress towards goal: Patient free from falls and injury. Continue to monitor. Problem: Infection Goal: Absence of infection during hospitalization Description: Interventions: 1. Assess and monitor for signs and symptoms of infection 2. Monitor lab/diagnostic results 3. Monitor all insertion sites i.e., indwelling lines, tubes and drains 4. Monitor endotracheal (as able) and nasal secretions for changes in amount and color 5. Administer medications as ordered 6. Instruct and encourage patient and family to use good hand hygiene technique 7. Identify and instruct patient/patient small business representative in use of appropriate isolation precautionsfor identified infection/symptoms 8. Provide and discuss with patient/patient small business representative on educational MDRO sheet 9. Encourage and monitor nutritional status daily and consult director of accounting if indicated 10. Implement neutropenic guidelines as needed 11. Review exposure to history of communicable disease and recent travel history on admission 12. Encourage annual influenza vaccine 13. Encourage pneumonia vaccine Outcome: Progressing Note: Evaluation of progress towards goal: Patient free from signs of infection. Afebrile. Continueto Monitor. Problem: Knowledge Deficit Goal: Patient/patient small business representative demonstrates understanding of disease process, treatment plan,medications, and discharge instructions Description: INTERVENTIONS 1. Complete learning assessment and assess knowledge base 2. Provide teaching at level of understanding 3. Provide teaching via preferred learning method(s) Outcome: Progressing Note: Evaluation of progress towards goal: Plan of care reviewed. Patient verbalizes understanding. Problem: Discharge Planning Goal: Discharge to post-acute care, other facility, or home with appropriate resources Description: Patient's goal is: INTERVENTIONS 1. Conduct assessment to determine patient/family and health care team treatment goals, and need for post-acute services based on payer coverage, community resources, and patient preferences, and barriers to discharge 2. Coordinate with Social work, Care Navigation, and Utilization Review to arrange appropriate level of services according to patient's needs based on patient preference and payer coverage in collaboration with the physician and health care team 3. Address psychosocial, clinical, and financial barriers to discharge as identified in assessment in conjunction with the patient/family and health care team 4. Consult appropriate ancillary services (i.e.. PT/OT/ST, etc) as needed 5. Communicate with and update the patient/family, physician, and health care team regarding progress on the discharge plan 6. Identify discharge learning needs (meds, wound care, etc). 7. Arrange for needed discharge transportation as appropriate Outcome: Progressing Note: Evaluation of progress towards goal: Discharge Plan Reviewed. Pt verbalizes understanding. Problem: Low Risk Fall Score Description: Mcelroy Fall Score of 0 - 24 or indicated by [facility] Assessment Goal: Patient should be free from fall Description: Interventions: 1. [place] to environment 2. Hourly rounds addressing the 4 P's (Pain, Positioning, Possessions, Potty) 3. Clear area of hazards (spills, clutter, electrical cords, unnecessary equipment) 4. Place equipment (bed & TV controls, call light, phone, urinal) within reach 5. Encourage patient to wear glasses and hearing aides as appropriate 6. Maintain bed in lowest position 7. Lock wheels on bed/wheelchair 8. Provide adequate lighting, including night light 9. Assess need for additional bedding, food/fluids, pain med's prior to sleep/routinely 10. Provide gripper slippers or personal non-skid footwear 11. Teach patient and patient small business representative to maintain environment for safety and engage in all aspects of fall prevention program Outcome: Progressing Note: Evaluation of progress towards goal: Patient free from falls and injury. Continue to monitor. Problem: Glucose Imbalance Goal: Clinical indication of glucose balance is achieved Description: Patient's goal is: INTERVENTIONS 1. Monitor blood glucose levels as ordered 2. Administer medications as ordered 3. Notify physician of ineffective treatment plan Outcome: Progressing Note: Evaluation of progress towards goal: Clinical indication of glucose balance has been achieved. Goal: Patient's discharge needs are met Description: Patient's goal is: INTERVENTIONS 1. Assess patient for self-management skills 2. Encourage participation in diabetes management 3. Identify potential discharge barriers on admission and throughout hospital stay 4. Involve patient/S.O. in discharge planning process 5. Communicate referral to telehealth nurse educator as appropriate 6. Communicate referral to director of accounting as appropriate 7. Collaborate with case management/elementary school social worker for discharge needs Outcome: Progressing Note: Evaluation of progress towards goal: Patient's discharge need have been met. * Plan of Care - Dyllan Monetro RN - 06/11/2023 3:00 AM EDT Problem: Infection Goal: Absence of infection during hospitalization Description: Interventions: 1. Assess and monitor for signs and symptoms of infection 2. Monitor lab/diagnostic results 3. Monitor all insertion sites i.e., indwelling lines, tubes and drains 4. Monitor endotracheal (as able) and nasal secretions for changes in amount and color 5. Administer medications as ordered 6. Instruct and encourage patient and family to use good hand hygiene technique 7. Identify and instruct patient/patient small business representative in use of appropriate isolation precautionsfor identified infection/symptoms 8. Provide and discuss with patient/patient small business representative on educational MDRO sheet 9. Encourage and monitor nutritional status daily and consult director of accounting if indicated 10. Implement neutropenic guidelines as needed 11. Review exposure to history of communicable disease and recent travel history on admission 12. Encourage annual influenza vaccine 13. Encourage pneumonia vaccine Outcome: Progressing Note: Evaluation of progress towards goal: Labs ordered, pt on IV vanco Q12, monitoring for S&Sof infection. Problem: Low Risk Fall Score Description: Mcelroy Fall Score of 0 - 24 or indicated by [facility] Assessment Goal: Patient should be free from fall Description: Interventions: 1. [place] to environment 2. Hourly rounds addressing the 4 P's (Pain, Positioning, Possessions, Potty) 3. Clear area of hazards (spills, clutter, electrical cords, unnecessary equipment) 4. Place equipment (bed & TV controls, call light, phone, urinal) within reach 5. Encourage patient to wear glasses and hearing aides as appropriate 6. Maintain bed in lowest position 7. Lock wheels on bed/wheelchair 8. Provide adequate lighting, including night light 9. Assess need for additional bedding, food/fluids, pain med's prior to sleep/routinely 10. Provide gripper slippers or personal non-skid footwear 11. Teach patient and patient small business representative to maintain environment for safety and engage in all aspects of fall prevention program Outcome: Adequate for Discharge Note: Evaluation of progress towards goal: Pt displays steady gait and could ambulate independentlyif free from medical equipment. * Op Note - Eugene Patricia MD - 06/10/2023 5:00 PM EDT Service: Neurosurgery Attending: Eugene Patricia Date: 06/10/2023 Preoperative diagnosis: Multi-level cervical spondylosis, foraminal stenosis, neck and arm pain Postoperative diagnosis: Same Procedure: C5-7 Cervical Arthroplasty - Wound Class: Clean - Incision Closure: Deep and Superficial Layers C5-6 and C6-7 Total disc arthroplasty (total disc replacement) - [employer] 5 mm x 16 mmat c5-6 and 6 mm x 16 mm at c6-7 Anesthesia: General tracheal Estimated blood loss: 50 ml Complications: none Drains: none Postoperative disposition: Recovery room Condition: Stable Indication procedure: 47 y/o male - has multi-level cervical spondylsois. Has foraminal stenosis. He has both neck and arm pain. He ddi not improve adequately with therapy and pain management. I offered two level arthorplasty versus acf - he prefers arthroplasty if technically feasible at surgery. He voiced understanding of the potential risks and benefits. Operative report in detail: After obtaining written informed consent for the procedure the patient was brought to the operatingroom placed on the operating table supine position. The patient was induced with anesthesia and intubated without difficulty. The patient's arms were padded and tucked to the sides. SCDs were placed on the patient's legs for DVT prophylaxis. The patient's head was placed in the gel donut a small shoulder roll was placed. The neck was marked and then prepped and draped in usual sterile fashion. The preoperative time-out completed. Perioperative IV direct prophylactic therapy was given. Local anesthesia was instilled. The skin incision was created with a 10 blade scalpel. The subcutaneous tissue was divided with theMetzenbaum scissors. The platysma muscle was elevated and sharply divided from lateral to medial. The medial border of the sternocleidomastoid muscle was freed from the strap muscles the neck. Blunt d issection was carried down medial to the carotid sheath and lateral to the esophagus to the anterior border the cervical spine. Peanut dissection was were used to sweep the soft tissues away from theanterior border the cervical spine. A bent needle was placed in the disc space (c6-7) and an ap and lateral fluoro image was obtained to confirm the levels for operation - the midline was marked. The longus colli muscles were then elevated at the appropriate levels. The self-retaining retractor was inserted. The Leksell rongeur was used to take down the spondylitic ridging anteriorly. The disc space at the first level was incised with a 15 blade scalpel and the disc removed with pituitary rongeur. The endplates of the bone were scraped clean. The spondylitic ridging anteriorly was taken down with Kerrison punches and then posteriorly the spondylosis was freed up from the posterior longitudinal ligament with a curette. Kerrison punches were used to remove the spondylitic ridging and the neural foramina widely decompressed. The posterior longitudinal ligament was opened and the dura identified. At c6-7 a 6 mm x 16 mm Prestige LP disc replacement was chosen - the trial was placed and aligned, the rail punch was used to create rail holes and the disc replacement was placed without difficulty. The same procedure was carried out at c5-6. The disc space was incised and debrided of disc. The endplates were scraped clean. The anterior and posterior spondylosis was taken down with Kerrisons. The neural foramen were widely decompressed and the ligament was opened and no subligamentous disc herniation identified. At c5-6 a 5 mm x 16 mm Prestige LP disc replacement was placed without difficulty. The wound was irrigated and checked for hemostasis. There was no bleeding seen. The esophagus was inspected and no injury was seen. The carotid artery was palpated had a good pulse. The wound was closed in layers with 2 Vicryl suture in interrupted fashion in the platysma and 2 Vicryl suture in inverted interrupted fashion the subcu layer and skin. Final skin closure was with skin glue and Steri-Strips. Sterile dressing was applied. The patient was aroused from anesthesia and extubated. The patient was taken to recovery in stable condition. Eugene Patricia was present for completed the entire procedure. There were no immediate perioperative complications. EUGENE PATRICIA MD * Brief Op Note - Eugene Patricia MD - 06/10/2023 5:00 PM EDT Brief Post-op Note NAME: Zeeshan Llanos : 1975 PROCEDURE DATE: 06/10/2023 Surgeon: Surgeon(s) and Role: * Eugene Patriica MD - Primary Assistants: Julio Cesar Henderson MS3 Staff: Forest Nursery Supervisor Primary: Alexandra Galvan RN Scrub Relief: Nimco Smith Scrub Person: Amilcar Ponce CST Pre-op Diagnosis: Spinal stenosis of cervical region [M48.02] Procedure Details: Procedure(s): C5-7 Cervical Arthroplasty - Wound Class: Clean - Incision Closure: Deep and Superficial Layers C5-6 and C6-7 Total disc arthroplasty (total disc replacement) - Medtronic Prestige LP 5 mm x 16 mmat c5-6 and 6 mm x 16 mm at c6-7 Anesthesia Type: General Post-Op Diagnosis Codes: * Spinal stenosis of cervical region [M48.02] Complications: none Additions (Drains, Specimens, Implants): Implants: Implant Name Type Inv. Item Serial No. Community Service Officer Lot No. LRB No. Used Action DISC INTVRTB 16MM 6MM PSTG LP SPNE RPL SPECIAL [id number] - [id number] Other Implant DISCINTVRTB 16MM 6MM PSTG LP SPNE RPL SPECIAL [id number] use MDTR SPIN [id number] N/A 1 Implanted PRESTIGE LP CERVICAL DISC Cage MedElasticsearchamThe X Train [place] [id number] N/A 1 Implanted Estimated Blood Loss: * No values recorded between 06/10/2023 5:00 PM and 06/10/2023 7:16 PM * 50 ml OB Surgical Procedure Blood Loss: Anesthesia EBL: * No values recorded between 06/10/2023 5:00 PM and 06/10/2023 7:16 PM * OB QBL: * No values recorded between 06/10/2023 5:00 PM and 06/10/2023 7:16 PM * Total IV Fluids: Intravenous fluids were administered Crystalloids 1700mls Colloids 0 mls. Condition: good Findings: spondylosis at both levels with severe foraminal stenosis EUGENE PATRICIA MD * Perioperative Nursing Note - Lovely Shields RN - 06/07/2023 8:32 AM EDT ANESTHESIA REVIEW OR 06/10/23 CERVICAL CORPECTOMY: Asthma, CAD, stent x 3, DM, GERD, HTN, no cp or sob. Cardiac clearance 06/06/23, cardiac note 04/24/23, echo 07/21/20, cath 02/25/22, EKG's. Reviewed andaccepted by Dr. Rodriguez, no further orders or requests. * Perioperative Nursing Note - Lovely Shields RN - 06/07/2023 8:[address] Patricia notified of A1c result. documented in this encounterWhite Hospital03-19-2024 Plan of care note * Plan of Care - Stanislav Watson RN - 06/11/2023 12:44 PM EDT Problem: Pain Goal: Patient goal is pain score less than 4, able to rest, and participant in treatment plan as appropriate Description: INTERVENTIONS: 1. Encourage patient or legal small business representative to report early pain and ask for pain medicine when needed 2. Assess pain using appropriate pain scale and include the scale used when documenting 3. Administer analgesics based on type and severity of pain and evaluate response within appropriate time frame 4. Implement non-pharmacological measures as appropriate and evaluate response 5. Consider cultural and social influences on pain and pain management 6. Notify LIP if interventions ineffective or patient reports new pain 7. Monitor vital signs including pulse ox, end-tidal CO2 based on pain intervention 8. Reassess pain per policy 9. Teach patient or legal small business representative interventions for comforting Outcome: Progressing Note: Evaluation of progress towards goal: Patient reporting pain. PRN pain medication provided. Relaxation encouraged. Emotional support given. Problem: Safety Goal: Patient will be injury free during hospitalization Description: INTERVENTIONS: 1. Assess patient's risk for falls and implement fall prevention plan of care per policy 2. Provide and maintain a safe environment 3. Proper use of double Identifiers 4. Medication administration using the 5 rights 5. Hand hygiene 6. Specimens are labeled at the bedside 7. Instruct patient/ patient small business representative about use of safety devices 8. Include patient/ patient small business representative in decisions related to safety Outcome: Progressing Note: Evaluation of progress towards goal: Patient free from falls and injury. Continue to monitor. Problem: Infection Goal: Absence of infection during hospitalization Description: Interventions: 1. Assess and monitor for signs and symptoms of infection 2. Monitor lab/diagnostic results 3. Monitor all insertion sites i.e., indwelling lines, tubes and drains 4. Monitor endotracheal (as able) and nasal secretions for changes in amount and color 5. Administer medications as ordered 6. Instruct and encourage patient and family to use good hand hygiene technique 7. Identify and instruct patient/patient small business representative in use of appropriate isolation precautionsfor identified infection/symptoms 8. Provide and discuss with patient/patient small business representative on educational MDRO sheet 9. Encourage and monitor nutritional status daily and consult director of accounting if indicated 10. Implement neutropenic guidelines as needed 11. Review exposure to history of communicable disease and recent travel history on admission 12. Encourage annual influenza vaccine 13. Encourage pneumonia vaccine Outcome: Progressing Note: Evaluation of progress towards goal: Patient free from signs of infection. Afebrile. Continueto Monitor. Problem: Knowledge Deficit Goal: Patient/patient small business representative demonstrates understanding of disease process, treatment plan,medications, and discharge instructions Description: INTERVENTIONS 1. Complete learning assessment and assess knowledge base 2. Provide teaching at level of understanding 3. Provide teaching via preferred learning method(s) Outcome: Progressing Note: Evaluation of progress towards goal: Plan of care reviewed. Patient verbalizes understanding. Problem: Discharge Planning Goal: Discharge to post-acute care, other facility, or home with appropriate resources Description: Patient's goal is: INTERVENTIONS 1. Conduct assessment to determine patient/family and health care team treatment goals, and need for post-acute services based on payer coverage, community resources, and patient preferences, and barriers to discharge 2. Coordinate with Social work, Care Navigation, and Utilization Review to arrange appropriate level of services according to patient's needs based on patient preference and payer coverage in collaboration with the physician and health care team 3. Address psychosocial, clinical, and financial barriers to discharge as identified in assessment in conjunction with the patient/family and health care team 4. Consult appropriate ancillary services (i.e.. PT/OT/ST, etc) as needed 5. Communicate with and update the patient/family, physician, and health care team regarding progress on the discharge plan 6. Identify discharge learning needs (meds, wound care, etc). 7. Arrange for needed discharge transportation as appropriate Outcome: Progressing Note: Evaluation of progress towards goal: Discharge Plan Reviewed. Pt verbalizes understanding. Problem: Low Risk Fall Score Description: Mcelroy Fall Score of 0 - 24 or indicated by [facility] Assessment Goal: Patient should be free from fall Description: Interventions: 1. [place] to environment 2. Hourly rounds addressing the 4 P's (Pain, Positioning, Possessions, Potty) 3. Clear area of hazards (spills, clutter, electrical cords, unnecessary equipment) 4. Place equipment (bed & TV controls, call light, phone, urinal) within reach 5. Encourage patient to wear glasses and hearing aides as appropriate 6. Maintain bed in lowest position 7. Lock wheels on bed/wheelchair 8. Provide adequate lighting, including night light 9. Assess need for additional bedding, food/fluids, pain med's prior to sleep/routinely 10. Provide gripper slippers or personal non-skid footwear 11. Teach patient and patient small business representative to maintain environment for safety and engage in all aspects of fall prevention program Outcome: Progressing Note: Evaluation of progress towards goal: Patient free from falls and injury. Continue to monitor. Problem: Glucose Imbalance Goal: Clinical indication of glucose balance is achieved Description: Patient's goal is: INTERVENTIONS 1. Monitor blood glucose levels as ordered 2. Administer medications as ordered 3. Notify physician of ineffective treatment plan Outcome: Progressing Note: Evaluation of progress towards goal: Clinical indication of glucose balance has been achieved. Goal: Patient's discharge needs are met Description: Patient's goal is: INTERVENTIONS 1. Assess patient for self-management skills 2. Encourage participation in diabetes management 3. Identify potential discharge barriers on admission and throughout hospital stay 4. Involve patient/S.O. in discharge planning process 5. Communicate referral to telehealth nurse educator as appropriate 6. Communicate referral to director of accounting as appropriate 7. Collaborate with case management/elementary school social worker for discharge needs Outcome: Progressing Note: Evaluation of progress towards goal: Patient's discharge need have been met. [facility]03-19-2024 Hospital Discharge instructions* Discharge Instructions* ADAM Marc - 06/11/2023 11:55 AM EDT Neurosurgery Discharge Instructions Special Medication Instructions: No Aspirin, Anti-Platelet agents or other blood thinning medications for 7 days from date of surgery. No anti-inflammatories for 12 weeks from date of surgery. No alcohol. Continue Stool softeners while taking narcotic pain medication. Add laxatives as needed Activities: No lifting greater than 1-2 lbs for 14 days No driving for 7 days or while taking pain medication May shower, no tub baths or swimming for 14 days from surgery date Avoid pushing, pulling or any strenuous activity Take short frequent walks during the day as your pain permits Stairs as tolerated, take your time Notify Doctor if you notice: Increased pain Redness, swelling, bleeding or drainage from incision Temperature 101 degrees or above Numbness, tingling or decreased strength different than before your surgery or new since your surgery. In case of emergency, call 911 immediately! If 911 is not available, call your local emergency medical system for help. Wound Care: Ok to shower and let soap/water run over incision; do not soak/scrub Do not apply creams or ointments to your incision Surgical tapes over your incision will likely loosen and fall off after several days. If the tapes are still in place 7 days after your surgery, shower normal and gently remove at that time. Other Instructions: Home instructions per [facility] Neurosurgery Booklet Call [facility] with any questions, . Prescription Pain Medication If you reside in [place] and receive a narcotic pain medication prescription from one of our nursepractitioners, you must have the prescription filled here at the hospital before you are dischargeddue to restrictions with [place] laws. You will not be able to fill the prescription in [place] If you would like to request a prescription refill for narcotic pain medication, you must request this 2 days in advance to the Neuroscience office [phone] * Appointments* Nona Mccoy - 06/11/2023 1:16 PM EDT YOUR SCHEDULED APPOINTMENTS Please make note of this in your schedule as to not miss or call to reschedule. Thank you! CRYSTAL CARMONA MD [phone] [id number] [facility] [address] [facility] [id number] Go on 06/24/2023 at 1:40 PM Pt. should bring the following to appointment; Discharge paperwork Picture ID, Insurance card, co-pay, and all current medications in their bottles. Please provide a 24 hour notice for cancellation. Failure to do so will result in the practice declining to see pt. in the future. If you have insurance copay you must bring with you to the appointment. Please arrive about 15 minutes prior to appointment for check-in/registration. For NEW PATIENT APPOINTMENTS, please arrive 30 minutes early to complete new patient paperwork. For NEW patients, MD will not prescribe fpc pain medication. * Attachments The following attachments cannot be sent through Care Everywhere. * Spinal Stenosis Discharge Instructions (Tristanian) * Spinal Stenosis Strengthening Exercises (Tristanian) * Spinal Stenosis Stretching Exercises (Tristanian) documented in this encounterWhite Hospital03-19-2024 Hospital course Narrative* 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 APRN-DIRECTOR EMPLOYMENT - 06/11/2023 7:43 AM EDT Images from the original note were not included. [facility] [address] [place] [address], [address] [place] [address] * NEUROSURGERY DISCHARGE SUMMARY Patient: Zeeshan Llanos Date of : 1975 Acct: [id number] Primary Care Physician: CRYSTAL CARMONA MD Admit date: 06/10/2023 06/10/2023 12:19 PM Discharge date: 06/11/23 Discharge Diagnoses: Spinal stenosis of cervical region Principal Problem: Spinal stenosis of cervical region Discharge Medications: Medication List START taking these medications Instructions Last Dose Given Next Dose Due nicotine 21 mg/24 hr Commonly known as: NICODERM CQ Place 1 patch on the skin daily. CHANGE how you take these medications Instructions Last Dose Given Next Dose Due aspirin 81 mg Start taking on: June 18, 2023 What changed: additional instructions These instructions start on June 18, 2023. If you are unsure what to do until then, ask your doctor or other care provider. Take 1 tablet (81 mg total) by mouth in the morning. Indications: blood clot prevention following percutaneous coronary intervention. Ok to resume 06/18/23. HYDROcodone-acetaminophen 5-325 mg per tablet Commonly known as: NORCO What changed: how much to take when to take this Take 1-2 tablets by mouth every 6 (six) hours as needed for pain for up to 7 days. Max Daily Amount: 8 tablets CONTINUE taking these medications Instructions Last Dose Given Next Dose Due carisoprodoL 350 mg tablet Commonly known as: SOMA Take 1 tablet (350 mg total) by mouth in the morning and 1 tablet (350 mg total) before bedtime. Indications: muscle spasm. clindamycin 300 mg capsule Commonly known as: CLEOCIN Take 1 capsule (300 mg total) by mouth 3 (three) times a day. Dental infection dapagliflozin propanediol 10 mg tablet Commonly known as: FARXIGA Take 1 tablet (10 mg total) by mouth in the morning. Indications: type 2 diabetes mellitus. HOLD 3 DAYS PRIOR TO SURGERY. finasteride 5 mg tablet Commonly known as: PROSCAR Take 1 tablet (5 mg total) by mouth in the morning. Indications: enlarged prostate with urination problem. hydroCHLOROthiazide 25 mg tablet Commonly known as: HYDRODIURIL Take 1 tablet (25 mg total) by mouth daily Indications: high blood pressure. lisinopriL 2.5 mg tablet Commonly known as: PRINIVIL,ZESTRIL Take 1 tablet (2.5 mg total) by mouth in the morning. Indications: high blood pressure. meloxicam 15 mg tablet Commonly known as: MOBIC Take 1 tablet (15 mg total) by mouth in the morning and 1 tablet (15 mg total) before bedtime. States is holding for surgery last dose 05/30/23. metFORMIN 500 mg tablet Commonly known as: GLUCOPHAGE Take 1 tablet (500 mg total) by mouth in the morning and 1 tablet (500 mg total) in the evening. Take with meals. Indications: type 2 diabetes mellitus. metoprolol tartrate 25 mg tablet Commonly known as: LOPRESSOR Take 1 tablet (25 mg total) by mouth in the morning and 1 tablet (25 mg total) before bedtime. Indications: high blood pressure. pantoprazole 40 mg EC tablet Commonly known as: PROTONIX Take 1 tablet (40 mg total) by mouth in the morning and 1 tablet (40 mg total) before bedtime. pregabalin 150 mg capsule Commonly known as: LYRICA Take 1 capsule (150 mg total) by mouth 3 (three) times a day. rosuvastatin 20 mg tablet Commonly known as: CRESTOR Take 1 tablet (20 mg total) by mouth in the morning. HIGH CHOLESTEROL. STIOLTO RESPIMAT 2.5-2.5 mcg/actuation mist Generic drug: tiotropium-olodateroL Take 2 puffs by mouth every morning. asthma tamsulosin 0.4 mg capsule Commonly known as: FLOMAX Take 1 capsule (0.4 mg total) by mouth in the morning. Indications: enlarged prostate with urination problem. TOUJEO MAX U-300 SOLOSTAR 300 unit/mL (3 mL) insulin pen Generic drug: insulin glargine U-300 conc Inject 40 Unit under the skin Daily before evening meal Indications: type 2 diabetes mellitus. VENTOLIN HFA 90 mcg/actuation inhaler Generic drug: albuterol Inhale 2 puffs every 4 (four) hours as needed for wheezing or shortness of breath Indications: asthma attack. Uses most days STOP taking these medications NON FORMULARY ASK your doctor about these medications Instructions Last Dose Given Next Dose Due amitriptyline 50 mg tablet Commonly known as: ELAVIL Take 1 tablet (50 mg total) by mouth nightly. Where to Get Your Medications [id number] [address] [id number] HYDROcodone-acetaminophen 5-325 mg per tablet nicotine 21 mg/24 hr Information about where to get these medications is not yet available Ask your nurse or doctor about these medications aspirin 81 mg Diet: Adult diet Regular Texture Activity: As tolerated, see discharge instructions for further details Follow-up: Follow up as scheduled with Dr. Patricia Consultants: N/A Procedures: C5-7 Cervical Arthroplasty - Wound Class: Clean - Incision Closure: Deep and Superficial Layers C5-6 and C6-7 Total disc arthroplasty (total disc replacement) - Medtronic Prestige LP 5 mm x 16 mmat c5-6 and 6 mm x 16 mm at c6-7 Diagnostic Test: Cervical xray Physical Exam: Awake Alert NAD Respirations even and unlabored Abdomen soft and nontender BUE/BLE strength and sensation intact with exception of left hand grasp weakness Incision: Well approximated with steri strips without swelling or drainage; left open to air Hospital Course: Clinical course has been stable. Patient was admitted post operatively and developed no acute complications. Pt seen and evaluated on morning rounds. Awake, alert and oriented with clear appropriate speech. Pre-op symptoms are improved after surgery. Surgical pain is well controlled with oral pain medications. Pt is eating, drinking and voiding without difficulty with + flatus. Ambulating in halls with steady gait. Surgical incision well approximated and intact with steri strips, no incisional concerns. Criteria for discharge has been met. Verbal discharge instructions reviewed, all questions have been answered. Pt verbalized understanding. OARRS report has been reviewed and appropriate. Written discharge instructions and a prescription for [place] for pain control will be provided at the time of discharge. Pt will be discharged to home later today with no needs. Follow up appointment is in place and appointment details have been reviewed. The patient has been started on an opiate pain medication for a condition that is expected to last longer than seven days. Alternatives to opiate medication have been considered and discussed with the patient and it has been agreed upon that opiates are needed in this case. This initial prescription for this problem has been written for 7 days. The reasons for the longer duration of therapy in this case are acute post operative pain . The risks versus benefits of opiate therapy, and extended opiate therapy have been discussed with the patient and have been deemed acceptable and clinically appropriate. Had lengthy discussion with patient on importance of smoking cessation (smokes up to 2 PPD) and controlling his sugars (A1C > 12 pre operatively). Discussed increased risk of post operative infection and hardware failure. Encouraged him to follow up with his PCP in the next 1-2 weeks. He expressed understanding. Disposition: Home Condition: Stable 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 APRN-DIRECTOR EMPLOYMENT [facility] Contact via patient touch 06/11/23 12:06 PM To find out which PETER is on for the day please go to [employer] and use log in TeamLINKS and search for [facility] Neurosurgery (PETER and Phone Number is listed) ADAM Marc 06/11/23 1212 documented in this encounterWhite Hospital03-19-2024 Plan of care note * Plan of Care - Dyllan Montero RN - 06/11/2023 3:00 AM EDT Problem: Infection Goal: Absence of infection during hospitalization Description: Interventions: 1. Assess and monitor for signs and symptoms of infection 2. Monitor lab/diagnostic results 3. Monitor all insertion sites i.e., indwelling lines, tubes and drains 4. Monitor endotracheal (as able) and nasal secretions for changes in amount and color 5. Administer medications as ordered 6. Instruct and encourage patient and family to use good hand hygiene technique 7. Identify and instruct patient/patient small business representative in use of appropriate isolation precautionsfor identified infection/symptoms 8. Provide and discuss with patient/patient small business representative on educational MDRO sheet 9. Encourage and monitor nutritional status daily and consult director of accounting if indicated 10. Implement neutropenic guidelines as needed 11. Review exposure to history of communicable disease and recent travel history on admission 12. Encourage annual influenza vaccine 13. Encourage pneumonia vaccine Outcome: Progressing Note: Evaluation of progress towards goal: Labs ordered, pt on IV vanco Q12, monitoring for S&Sof infection. Problem: Low Risk Fall Score Description: Mcelroy Fall Score of 0 - 24 or indicated by [facility] Assessment Goal: Patient should be free from fall Description: Interventions: 1. [place] to environment 2. Hourly rounds addressing the 4 P's (Pain, Positioning, Possessions, Potty) 3. Clear area of hazards (spills, clutter, electrical cords, unnecessary equipment) 4. Place equipment (bed & TV controls, call light, phone, urinal) within reach 5. Encourage patient to wear glasses and hearing aides as appropriate 6. Maintain bed in lowest position 7. Lock wheels on bed/wheelchair 8. Provide adequate lighting, including night light 9. Assess need for additional bedding, food/fluids, pain med's prior to sleep/routinely 10. Provide gripper slippers or personal non-skid footwear 11. Teach patient and patient small business representative to maintain environment for safety and engage in all aspects of fall prevention program Outcome: Adequate for Discharge Note: Evaluation of progress towards goal: Pt displays steady gait and could ambulate independentlyif free from medical equipment. [facility]03-19-2024 Nurse Note* Dyllan Montero RN - 06/11/2023 1:53 AM EDT 2124: Patient transferred to [facility] Room 833 from PACU s/p anterior C5-C7 anterior corpectomy/arthroplasty. Required admission documentation completed. A&Ox4, for assessment see flowsheet. [facility]03-19-2024 Nurse Note* Dyllan Montero RN - 06/11/2023 1:53 AM EDT 2124: Patient transferred to [facility] Room 833 from PACU s/p anterior C5-C7 anterior corpectomy/arthroplasty. Required admission documentation completed. A&Ox4, for assessment see flowsheet. [facility] Procedure note* Op Note - Eugene Patricia MD - 06/10/2023 5:00 PM EDT Service: Neurosurgery Attending: Eugene Patricia Date: 06/10/2023 Preoperative diagnosis: Multi-level cervical spondylosis, foraminal stenosis, neck and arm pain Postoperative diagnosis: Same Procedure: C5-7 Cervical Arthroplasty - Wound Class: Clean - Incision Closure: Deep and Superficial Layers C5-6 and C6-7 Total disc arthroplasty (total disc replacement) - Medtronic Prestige LP 5 mm x 16 mmat c5-6 and 6 mm x 16 mm at c6-7 Anesthesia: General tracheal Estimated blood loss: 50 ml Complications: none Drains: none Postoperative disposition: Recovery room Condition: Stable Indication procedure: 47 y/o male - has multi-level cervical spondylsois. Has foraminal stenosis. He has both neck and arm pain. He ddi not improve adequately with therapy and pain management. I offered two level arthorplasty versus acf - he prefers arthroplasty if technically feasible at surgery. He voiced understanding of the potential risks and benefits. Operative report in detail: After obtaining written informed consent for the procedure the patient was brought to the operatingroom placed on the operating table supine position. The patient was induced with anesthesia and intubated without difficulty. The patient's arms were padded and tucked to the sides. SCDs were placed on the patient's legs for DVT prophylaxis. The patient's head was placed in the gel donut a small shoulder roll was placed. The neck was marked and then prepped and draped in usual sterile fashion. The preoperative time-out completed. Perioperative IV direct prophylactic therapy was given. Local anesthesia was instilled. The skin incision was created with a 10 blade scalpel. The subcutaneous tissue was divided with theMetzenbaum scissors. The platysma muscle was elevated and sharply divided from lateral to medial. The medial border of the sternocleidomastoid muscle was freed from the strap muscles the neck. Blunt d issection was carried down medial to the carotid sheath and lateral to the esophagus to the anterior border the cervical spine. Peanut dissection was were used to sweep the soft tissues away from theanterior border the cervical spine. A bent needle was placed in the disc space (c6-7) and an ap and lateral fluoro image was obtained to confirm the levels for operation - the midline was marked. The longus colli muscles were then elevated at the appropriate levels. The self-retaining retractor was inserted. The Leksell rongeur was used to take down the spondylitic ridging anteriorly. The disc space at the first level was incised with a 15 blade scalpel and the disc removed with pituitary rongeur. The endplates of the bone were scraped clean. The spondylitic ridging anteriorly was taken down with Kerrison punches and then posteriorly the spondylosis was freed up from the posterior longitudinal ligament with a curette. Kerrison punches were used to remove the spondylitic ridging and the neural foramina widely decompressed. The posterior longitudinal ligament was opened and the dura identified. At c6-7 a 6 mm x 16 mm Prestige LP disc replacement was chosen - the trial was placed and aligned, the rail punch was used to create rail holes and the disc replacement was placed without difficulty. The same procedure was carried out at c5-6. The disc space was incised and debrided of disc. The endplates were scraped clean. The anterior and posterior spondylosis was taken down with Kerrisons. The neural foramen were widely decompressed and the ligament was opened and no subligamentous disc herniation identified. At c5-6 a 5 mm x 16 mm Prestige LP disc replacement was placed without difficulty. The wound was irrigated and checked for hemostasis. There was no bleeding seen. The esophagus was inspected and no injury was seen. The carotid artery was palpated had a good pulse. The wound was closed in layers with 2 Vicryl suture in interrupted fashion in the platysma and 2 Vicryl suture in inverted interrupted fashion the subcu layer and skin. Final skin closure was with skin glue and Steri-Strips. Sterile dressing was applied. The patient was aroused from anesthesia and extubated. The patient was taken to recovery in stable condition. Eugene Patricia was present for completed the entire procedure. There were no immediate perioperative complications. EUGENE PATRICIA MD [facility]03-18-2024 Procedure note* Brief Op Note - Eugene Patricia MD - 06/10/2023 5:00 PM EDT Brief Post-op Note NAME: Zeeshan Llanos : 1975 PROCEDURE DATE: 06/10/2023 Surgeon: Surgeon(s) and Role: * Eugene Patricia MD - Primary Assistants: Julio Cesar Henderson MS3 Staff: Forest Nursery Supervisor Primary: Alexandra Galvan RN Scrub Relief: Nimco Smith Scrub Person: Amilcar Ponce CST Pre-op Diagnosis: Spinal stenosis of cervical region [M48.02] Procedure Details: Procedure(s): C5-7 Cervical Arthroplasty - Wound Class: Clean - Incision Closure: Deep and Superficial Layers C5-6 and C6-7 Total disc arthroplasty (total disc replacement) - Medtronic Prestige LP 5 mm x 16 mmat c5-6 and 6 mm x 16 mm at c6-7 Anesthesia Type: General Post-Op Diagnosis Codes: * Spinal stenosis of cervical region [M48.02] Complications: none Additions (Drains, Specimens, Implants): Implants: Implant Name Type Inv. Item Serial No. Community Service Officer Lot No. LRB No. Used Action DISC [id number] 16MM 6MM PSTG LP SPNE RPL SPECIAL [id number] - [id number] Other Implant DISCINTVRTB 16MM 6MM PSTG LP SPNE RPL SPECIAL [id number] use MDTR SPIN [id number] N/A 1 Implanted PRESTIGE LP CERVICAL DISC Cage [employer] Sofamor [place] [id number] N/A 1 Implanted Estimated Blood Loss: * No values recorded between 06/10/2023 5:00 PM and 06/10/2023 7:16 PM * 50 ml OB Surgical Procedure Blood Loss: Anesthesia EBL: * No values recorded between 06/10/2023 5:00 PM and 06/10/2023 7:16 PM * OB QBL: * No values recorded between 06/10/2023 5:00 PM and 06/10/2023 7:16 PM * Total IV Fluids: Intravenous fluids were administered Crystalloids 1700mls Colloids 0 mls. Condition: good Findings: spondylosis at both levels with severe foraminal stenosis EUGENE PATRICIA MD [facility]03-18-2024 Attending History and physical note* Eugene Patricia MD - 06/10/2023 4:21 PM EDT HISTORY AND PHYSICAL INTERVAL NOTE: Zeeshan Llanos 1975 [id number] H&P reviewed. The patient was examined and there are no changes to the H&P. Plan cervical decompression and potential arthroplasty versus ACF - c5-6 and c6-7. Patient voiced understanding of the potential risks and benefits and wishes to proceed. EUGENE PATRICIA MD Source Note - Diann Vela APRN-DIRECTOR EMPLOYMENT - 06/06/2023 1:15 PM EDT PRE-ADMISSION TESTING HISTORY AND PHYSICAL EXAM DATE: 06/06/23 PCP: CRYSTAL CARMONA MD CHIEF COMPLAINT: Spinal stenosis of cervical region HISTORY OF PRESENT ILLNESS: Zeeshan Llanos, a 47 y.o. White or male, presents to [facility] for a pre- surgical H&P for a planned anterior cervical corpectomy and arthroplasty. He complains of chronic neck pain taht has progressively worsened. Associated with pain radiating down left arm, numbness and tingling in left arm and left arm weakness. He takes Vicodin or Tylenol for pain control. Denies loss of bowel/bladder control. PAST MEDICAL HISTORY: Past Medical History: Diagnosis Date Arthritis Asthma Back pain spinal cord stimulator Chronic pain disorder Coronary artery disease 2020 stents x3 Dental disease broken teeth, on ATB for dental infection started 06/05/23 Diabetes mellitus type 2, controlled [place] oral meds and insulin Fractures rt hand boxers fx GERD (gastroesophageal reflux disease) Hyperlipidemia Hypertension Injury of back Lumbar disc disease DC (myocardial infarction) [place] 2020 DC (myocardial infarction) [place] 02/24/2022 Neuropathy Psoriasis uses a cream prn Spinal stenosis of cervical region no injections to area, denies injury Visual impairment wears glasses PAST SURGICAL HISTORY: Past Surgical History: Procedure Laterality Date BLOCK MEDIAL BRANCH NERVE Bilateral 11/16/2016 Performed by Zeeshan Huerta MD at [facility] CORONARY ANGIOPLASTY WITH STENT PLACEMENT 2020 CORONARY ANGIOPLASTY WITH STENT PLACEMENT 02/24/2022 HERNIA REPAIR umbilical, late 30's early 40's INJECTION BLOCK EPIDURAL CAUDAL STEROID N/A 01/12/2022 Performed by Zeeshan Huerta MD at [facility] INJECTION BLOCK NERVE MEDIAL BRANCH Bilat L 4/5, 5/1 Bilateral 11/16/2022 Performed by Zeeshan Huerta MD at [facility] INJECTION BLOCK NERVE MEDIAL BRANCH Bilat L 4/5,5/1 Bilateral 09/28/2022 Performed by Zeeshan Huerta MD at [facility] INJECTION BLOCK SACROILIAC JOINT Left 08/03/2022 Performed by Zeeshan Huerta MD at [facility] INJECTION MEDIAL BRANCH NERVE BLOCK Bilateral L 4/5, 5/1 Bilateral 01/09/2019 Performed by Zeeshan Huerta MD at [facility] INJECTION NERVE BLOCK Right Sciatic Right 04/17/2019 Performed by Zeeshan Huerta MD at [facility] INJECTION NERVE ROOT LEFT L5,1 Left 09/21/2016 Performed by Zeeshan Huerta MD at [facility] INJECTION SI JOINT Bilateral SI Joint Bilateral 02/06/2019 Performed by Zeeshan Huerta MD at [facility] INJECTION SI JOINT Bilateral SI Joint Bilateral 12/12/2018 Performed by Zeeshan Huerta MD at [facility] INJECTION STEROID EPI 1 WITH SEDATION Right L 5, 1 NR Right 05/01/2019 Performed by Zeeshan Huerta MD at [facility] INJECTION STEROID EPI 1 WITH SEDATION: L45 parmjit x 1 N/A 12/17/2016 Performed by Zeeshan Huerta MD at [facility] INSERTION TRIAL STIMULATOR SPINAL CORD N/A 03/01/2017 Performed by Zeeshan Huerta MD at [facility] Lumbar L4/5 ESIx1 N/A 11/23/2016 Performed by Zeeshan Huerta MD at [facility] LUMBAR SPINE SURGERY 10/29/2012 microdiscectomy, left side MICRO LUMBAR DISCECTOMY L5-S1 RIGHT Right 07/21/2019 Performed by Eugene Patricia MD at [facility] RADIO FREQUENCY ABLATION L2/3,3/4 Left 08/10/2016 Performed by Zeeshan Huerta MD at [facility] RADIO FREQUENCY ABLATION L2/3,3/4 Right 07/27/2016 Performed by Zeeshan Huerta MD at [facility] RADIOFREQUENCY ABLATION SPINAL Left L 4/5, 5/1 Left 03/01/2023 Performed by Zeeshan Huerta MD at [facility] RADIOFREQUENCY ABLATION SPINAL right L 4/5, 5/1 Right 03/29/2023 Performed by Zeeshan Huerta MD at [facility] FAMILY HISTORY: Family History Problem Relation Age of Onset Epilepsy Mother Seizures Mother Hypertension Father Heart disease Father Cancer Father Diabetes Father Back Problems Father Pancreatitis Father Neck Problems Father Heart disease Brother Diabetes Brother Anesthesia problems Neg Hx SOCIAL HISTORY: The patient reports that he does not currently use alcohol. He reports that he has been smoking cigarettes. He started smoking about 30 years ago. He has a 46.5 pack-year smoking history. He quit smokeless tobacco use about 4 years ago. His smokeless tobacco use included chew. He reports no history of drug use. ALLERGIES: Allergies Allergen Reactions Cephalexin Itching MEDICATIONS: Current Outpatient Medications: albuterol (VENTOLIN HFA) 90 mcg/actuation inhaler, Inhale 2 puffs every 4 (four) hours as needed for wheezing or shortness of breath Indications: asthma attack. Uses most days, Disp: , Rfl: aspirin 81 mg, Take 1 tablet (81 mg total) by mouth in the morning. Indications: blood clot prevention following percutaneous coronary intervention. HOLDING SINCE 05/30/23., Disp: , Rfl: carisoprodoL (SOMA) 350 mg tablet, Take 1 tablet (350 mg total) by mouth in the morning and 1 tablet (350 mg total) before bedtime. Indications: muscle spasm., Disp: , Rfl: clindamycin (CLEOCIN) 300 mg capsule, Take 1 capsule (300 mg total) by mouth 3 (three) times a day.Dental infection, Disp: , Rfl: dapagliflozin (FARXIGA) 10 mg tablet, Take 1 tablet (10 mg total) by mouth in the morning. Indications: type 2 diabetes mellitus. HOLD 3 DAYS PRIOR TO SURGERY., Disp: , Rfl: DEXILANT 60 mg capsule, Take 1 capsule (60 mg total) by mouth in the morning. Indications: gastroesophageal reflux disease., Disp: , Rfl: 4 finasteride (PROSCAR) 5 mg tablet, Take 1 tablet (5 mg total) by mouth in the morning. Indications:enlarged prostate with urination problem., Disp: , Rfl: hydroCHLOROthiazide (HYDRODIURIL) 25 mg tablet, Take 1 tablet (25 mg total) by mouth daily Indications: high blood pressure., Disp: , Rfl: HYDROcodone-acetaminophen (NORCO) 5-325 mg per tablet, Take 1 tablet by mouth every 4 (four) hours as needed for pain., Disp: , Rfl: insulin glargine U-300 conc (TOUJEO MAX U-300 SOLOSTAR) 300 unit/mL (3 mL) insulin pen, Inject 40 Unit under the skin Daily before evening meal Indications: type 2 diabetes mellitus., Disp: , Rfl: lisinopriL (PRINIVIL,ZESTRIL) 2.5 mg tablet, Take 1 tablet (2.5 mg total) by mouth in the morning. Indications: high blood pressure., Disp: , Rfl: meloxicam (MOBIC) 15 mg tablet, Take 1 tablet (15 mg total) by mouth in the morning and 1 tablet (15 mg total) before bedtime. States is holding for surgery last dose 05/30/23., Disp: , Rfl: metFORMIN (GLUCOPHAGE) 500 mg tablet, Take 1 tablet (500 mg total) by mouth in the morning and 1 tablet (500 mg total) in the evening. Take with meals. Indications: type 2 diabetes mellitus., Disp: ,Rfl: metoprolol tartrate (LOPRESSOR) 25 mg tablet, Take 1 tablet (25 mg total) by mouth in the morning and 1 tablet (25 mg total) before bedtime. Indications: high blood pressure., Disp: , Rfl: NON FORMULARY, Take 50 mcg by mouth in the morning. Med Name: Prevagen 50 mcg Holding for surgery 06/06/23., Disp: , Rfl: pantoprazole (PROTONIX) 40 mg EC tablet, Take 1 tablet (40 mg total) by mouth in the morning and 1 tablet (40 mg total) before bedtime., Disp: , Rfl: pregabalin (LYRICA) 150 mg capsule, Take 1 capsule (150 mg total) by mouth 3 (three) times a day. (Patient taking differently: Take 1 capsule (150 mg total) by mouth in the morning and 1 capsule (150mg total) before bedtime. PAIN.), Disp: 90 capsule, Rfl: 1 rosuvastatin (CRESTOR) 20 mg tablet, Take 1 tablet (20 mg total) by mouth in the morning. HIGH CHOLESTEROL., Disp: , Rfl: STIOLTO RESPIMAT 2.5-2.5 mcg/actuation mist, Take 2 puffs by mouth every morning. asthma, Disp: , Rfl: tamsulosin (FLOMAX) 0.4 mg capsule, Take 1 capsule (0.4 mg total) by mouth in the morning. Indications: enlarged prostate with urination problem., Disp: , Rfl: amitriptyline (ELAVIL) 50 mg tablet, Take 1 tablet (50 mg total) by mouth nightly. (Patient not taking: Reported on 06/06/2023), Disp: , Rfl: 0 REVIEW OF SYSTEMS: Review of Systems Constitutional: Negative. Negative for activity change and appetite change. HENT: Negative for congestion, ear discharge, ear pain, sore throat and trouble swallowing. Eyes: Positive for visual disturbance (glasses). Negative for pain and discharge. Respiratory: Negative for apnea, cough, shortness of breath, wheezing and stridor. Cardiovascular: Negative for chest pain and palpitations. Gastrointestinal: Negative for nausea, vomiting, abdominal pain, diarrhea and abdominal distention. Endocrine: Negative. Genitourinary: Negative for dysuria, urgency and flank pain. Musculoskeletal: Positive for back pain and arthralgias. Negative for myalgias and joint swelling. Skin: Negative for rash and wound. Allergic/Immunologic: Negative. Neurological: Positive for weakness, numbness and headaches. Negative for dizziness, seizures, syncope and light-headedness. Psychiatric/Behavioral: Negative for agitation. VITAL SIGNS: BP 127/77 Pulse 71 Temp 36.7 C (98 F) (Temporal) Resp 16 Ht 182.9 cm (6') Wt 93.9 kg (207lb 0.2 oz) SpO2 96% BMI 28.08 kg/m PHYSICAL EXAM: Physical Exam Vitals reviewed. Constitutional: General: He is not in acute distress. Appearance: Normal appearance. He is well-developed. He is not ill-appearing or toxic-appearing. HENT: Head: Normocephalic. Eyes: General: Lids are normal. Conjunctiva/sclera: Conjunctivae normal. Cardiovascular: Rate and Rhythm: Normal rate and regular rhythm. Pulses: Normal pulses. Radial pulses are 2+ on the right side and 2+ on the left side. Posterior tibial pulses are 2+ on the right side and 2+ on the left side. Heart sounds: Normal heart sounds, S1 normal and S2 normal. No murmur heard. Pulmonary: Effort: Pulmonary effort is normal. No respiratory distress. Breath sounds: Normal breath sounds. Abdominal: General: Bowel sounds are normal. Palpations: Abdomen is soft. Tenderness: There is no abdominal tenderness. Musculoskeletal: Right lower leg: No edema. Left lower leg: No edema. Skin: General: Skin is warm and dry. Neurological: Mental Status: He is alert and oriented to person, place, and time. Psychiatric: Behavior: Behavior is cooperative. RECENT LABS: Lab Results Component Value Date WBC 10.5 07/14/2019 HGB 16.1 07/14/2019 HCT 47.6 07/14/2019 PLT 257 07/14/2019 INR 0.9 07/14/2019 PTT 34 07/14/2019 SODIUM 133 (L) 07/14/2019 K 3.9 07/14/2019 CL 98 07/14/2019 CO2 27 07/14/2019 CALCIUM 9.3 07/14/2019 GLU 184 (H) 03/29/2023 CREATININE 0.58 (L) 07/14/2019 BUN 8 07/14/2019 GFR >60 07/14/2019 GFR >60 07/14/2019 *Please note that labs listed above are the most recent lab values available in [facility] at the time ofthe office visit and additional labs may have been drawn since that time. ASSESSMENT / DIAGNOSIS: Spinal stenosis of cervical region PLAN: Zeeshan Llanos is scheduled for Anterior Corpectomy Cervical/C5-7 Cervical Arthroplasty . ADAM Escobedo 06/06/23 1434 ADAM Escobedo 06/10/23 1622 [place] Work Phone: [phone] 476-933103-18-2024 History and physical note* Eugene Patricia MD - 06/10/2023 4:21 PM EDT HISTORY AND PHYSICAL INTERVAL NOTE: Zeeshan Llanos 1975 [id number] H&P reviewed. The patient was examined and there are no changes to the H&P. Plan cervical decompression and potential arthroplasty versus ACF - c5-6 and c6-7. Patient voiced understanding of the potential risks and benefits and wishes to proceed. EUGENE PATRICIA MD Source Note - ADAM Escobedo - 06/06/2023 1:15 PM EDT PRE-ADMISSION TESTING HISTORY AND PHYSICAL EXAM DATE: 06/06/23 PCP: CRYSTAL CARMONA MD CHIEF COMPLAINT: Spinal stenosis of cervical region HISTORY OF PRESENT ILLNESS: Zeeshan Llanos, a 47 y.o. White or male, presents to [facility] for a pre- surgical H&P for a planned anterior cervical corpectomy and arthroplasty. He complains of chronic neck pain taht has progressively worsened. Associated with pain radiating down left arm, numbness and tingling in left arm and left arm weakness. He takes Vicodin or Tylenol for pain control. Denies loss of bowel/bladder control. PAST MEDICAL HISTORY: Past Medical History: Diagnosis Date Arthritis Asthma Back pain spinal cord stimulator Chronic pain disorder Coronary artery disease 2020 stents x3 Dental disease broken teeth, on ATB for dental infection started 06/05/23 Diabetes mellitus type 2, controlled [place] [place] oral meds and insulin Fractures rt hand boxers fx GERD (gastroesophageal reflux disease) Hyperlipidemia Hypertension Injury of back Lumbar disc disease DC (myocardial infarction) [place] 2020 DC (myocardial infarction) [place] 02/24/2022 Neuropathy Psoriasis uses a cream prn Spinal stenosis of cervical region no injections to area, denies injury Visual impairment wears glasses PAST SURGICAL HISTORY: Past Surgical History: Procedure Laterality Date BLOCK MEDIAL BRANCH NERVE Bilateral 11/16/2016 Performed by Zeeshan Huerta MD at [facility] CORONARY ANGIOPLASTY WITH STENT PLACEMENT 2020 CORONARY ANGIOPLASTY WITH STENT PLACEMENT 02/24/2022 HERNIA REPAIR umbilical, late 30's early 40's INJECTION BLOCK EPIDURAL CAUDAL STEROID N/A 01/12/2022 Performed by Zeeshan Huerta MD at [facility] INJECTION BLOCK NERVE MEDIAL BRANCH Bilat L 4/5, 5/1 Bilateral 11/16/2022 Performed by Zeeshan Huerta MD at [facility] INJECTION BLOCK NERVE MEDIAL BRANCH Bilat L 4/5,5/1 Bilateral 09/28/2022 Performed by Zeeshan Huerta MD at [facility] INJECTION BLOCK SACROILIAC JOINT Left 08/03/2022 Performed by Zeeshan Huerta MD at [facility] INJECTION MEDIAL BRANCH NERVE BLOCK Bilateral L 4/5, 5/1 Bilateral 01/09/2019 Performed by Zeeshan Huerta MD at [facility] INJECTION NERVE BLOCK Right Sciatic Right 04/17/2019 Performed by Zeeshan Huerta MD at [facility] INJECTION NERVE ROOT LEFT L5,1 Left 09/21/2016 Performed by Zeeshan Huerta MD at [facility] INJECTION SI JOINT Bilateral SI Joint Bilateral 02/06/2019 Performed by Zeeshan Huerta MD at [facility] INJECTION SI JOINT Bilateral SI Joint Bilateral 12/12/2018 Performed by Zeeshan Huerta MD at [facility] INJECTION STEROID EPI 1 WITH SEDATION Right L 5, 1 NR Right 05/01/2019 Performed by Zeeshan Huerta MD at [facility] INJECTION STEROID EPI 1 WITH SEDATION: L45 parmjit x 1 N/A 12/17/2016 Performed by Zeeshan Huerta MD at [facility] INSERTION TRIAL STIMULATOR SPINAL CORD N/A 03/01/2017 Performed by Zeeshan Huerta MD at [facility] Lumbar L4/5 ESIx1 N/A 11/23/2016 Performed by Zeeshan Huerta MD at [facility] LUMBAR SPINE SURGERY 10/29/2012 microdiscectomy, left side MICRO LUMBAR DISCECTOMY L5-S1 RIGHT Right 07/21/2019 Performed by Eugene Patricia MD at [facility] RADIO FREQUENCY ABLATION L2/3,3/4 Left 08/10/2016 Performed by Zeeshan Huerta MD at [facility] RADIO FREQUENCY ABLATION L2/3,3/4 Right 07/27/2016 Performed by Zeeshan Huerta MD at [facility] RADIOFREQUENCY ABLATION SPINAL Left L 4/5, 5/ Left 03/01/2023 Performed by Zeeshan Huerta MD at [facility] RADIOFREQUENCY ABLATION SPINAL right L 4/5, 07/23 Right 03/29/2023 Performed by Zeeshan Huerta MD at [facility] FAMILY HISTORY: Family History Problem Relation Age of Onset Epilepsy Mother Seizures Mother Hypertension Father Heart disease Father Cancer Father Diabetes Father Back Problems Father Pancreatitis Father Neck Problems Father Heart disease Brother Diabetes Brother Anesthesia problems Neg Hx SOCIAL HISTORY: The patient reports that he does not currently use alcohol. He reports that he has been smoking cigarettes. He started smoking about 30 years ago. He has a 46.5 pack-year smoking history. He quit smokeless tobacco use about 4 years ago. His smokeless tobacco use included chew. He reports no history of drug use. ALLERGIES: Allergies Allergen Reactions Cephalexin Itching MEDICATIONS: Current Outpatient Medications: albuterol (VENTOLIN HFA) 90 mcg/actuation inhaler, Inhale 2 puffs every 4 (four) hours as needed for wheezing or shortness of breath Indications: asthma attack. Uses most days, Disp: , Rfl: aspirin 81 mg, Take 1 tablet (81 mg total) by mouth in the morning. Indications: blood clot prevention following percutaneous coronary intervention. HOLDING SINCE 05/30/23., Disp: , Rfl: carisoprodoL (SOMA) 350 mg tablet, Take 1 tablet (350 mg total) by mouth in the morning and 1 tablet (350 mg total) before bedtime. Indications: muscle spasm., Disp: , Rfl: clindamycin (CLEOCIN) 300 mg capsule, Take 1 capsule (300 mg total) by mouth 3 (three) times a day.Dental infection, Disp: , Rfl: dapagliflozin (FARXIGA) 10 mg tablet, Take 1 tablet (10 mg total) by mouth in the morning. Indications: type 2 diabetes mellitus. HOLD 3 DAYS PRIOR TO SURGERY., Disp: , Rfl: DEXILANT 60 mg capsule, Take 1 capsule (60 mg total) by mouth in the morning. Indications: gastroesophageal reflux disease., Disp: , Rfl: 4 finasteride (PROSCAR) 5 mg tablet, Take 1 tablet (5 mg total) by mouth in the morning. Indications:enlarged prostate with urination problem., Disp: , Rfl: hydroCHLOROthiazide (HYDRODIURIL) 25 mg tablet, Take 1 tablet (25 mg total) by mouth daily Indications: high blood pressure., Disp: , Rfl: HYDROcodone-acetaminophen (NORCO) 5-325 mg per tablet, Take 1 tablet by mouth every 4 (four) hours as needed for pain., Disp: , Rfl: insulin glargine U-300 conc (TOUJEO MAX U-300 SOLOSTAR) 300 unit/mL (3 mL) insulin pen, Inject 40 Unit under the skin Daily before evening meal Indications: type 2 diabetes mellitus., Disp: , Rfl: lisinopriL (PRINIVIL,ZESTRIL) 2.5 mg tablet, Take 1 tablet (2.5 mg total) by mouth in the morning. Indications: high blood pressure., Disp: , Rfl: meloxicam (MOBIC) 15 mg tablet, Take 1 tablet (15 mg total) by mouth in the morning and 1 tablet (15 mg total) before bedtime. States is holding for surgery last dose 05/30/23., Disp: , Rfl: metFORMIN (GLUCOPHAGE) 500 mg tablet, Take 1 tablet (500 mg total) by mouth in the morning and 1 tablet (500 mg total) in the evening. Take with meals. Indications: type 2 diabetes mellitus., Disp: ,Rfl: metoprolol tartrate (LOPRESSOR) 25 mg tablet, Take 1 tablet (25 mg total) by mouth in the morning and 1 tablet (25 mg total) before bedtime. Indications: high blood pressure., Disp: , Rfl: NON FORMULARY, Take 50 mcg by mouth in the morning. Med Name: Prevagen 50 mcg Holding for surgery 06/06/23., Disp: , Rfl: pantoprazole (PROTONIX) 40 mg EC tablet, Take 1 tablet (40 mg total) by mouth in the morning and 1 tablet (40 mg total) before bedtime., Disp: , Rfl: pregabalin (LYRICA) 150 mg capsule, Take 1 capsule (150 mg total) by mouth 3 (three) times a day. (Patient taking differently: Take 1 capsule (150 mg total) by mouth in the morning and 1 capsule (150mg total) before bedtime. PAIN.), Disp: 90 capsule, Rfl: 1 rosuvastatin (CRESTOR) 20 mg tablet, Take 1 tablet (20 mg total) by mouth in the morning. HIGH CHOLESTEROL., Disp: , Rfl: STIOLTO RESPIMAT 2.5-2.5 mcg/actuation mist, Take 2 puffs by mouth every morning. asthma, Disp: , Rfl: tamsulosin (FLOMAX) 0.4 mg capsule, Take 1 capsule (0.4 mg total) by mouth in the morning. Indications: enlarged prostate with urination problem., Disp: , Rfl: amitriptyline (ELAVIL) 50 mg tablet, Take 1 tablet (50 mg total) by mouth nightly. (Patient not taking: Reported on 06/06/2023), Disp: , Rfl: 0 REVIEW OF SYSTEMS: Review of Systems Constitutional: Negative. Negative for activity change and appetite change. HENT: Negative for congestion, ear discharge, ear pain, sore throat and trouble swallowing. Eyes: Positive for visual disturbance (glasses). Negative for pain and discharge. Respiratory: Negative for apnea, cough, shortness of breath, wheezing and stridor. Cardiovascular: Negative for chest pain and palpitations. Gastrointestinal: Negative for nausea, vomiting, abdominal pain, diarrhea and abdominal distention. Endocrine: Negative. Genitourinary: Negative for dysuria, urgency and flank pain. Musculoskeletal: Positive for back pain and arthralgias. Negative for myalgias and joint swelling. Skin: Negative for rash and wound. Allergic/Immunologic: Negative. Neurological: Positive for weakness, numbness and headaches. Negative for dizziness, seizures, syncope and light-headedness. Psychiatric/Behavioral: Negative for agitation. VITAL SIGNS: BP 127/77 Pulse 71 Temp 36.7 C (98 F) (Temporal) Resp 16 Ht 182.9 cm (6') Wt 93.9 kg (207lb 0.2 oz) SpO2 96% BMI 28.08 kg/m PHYSICAL EXAM: Physical Exam Vitals reviewed. Constitutional: General: He is not in acute distress. Appearance: Normal appearance. He is well-developed. He is not ill-appearing or toxic-appearing. HENT: Head: Normocephalic. Eyes: General: Lids are normal. Conjunctiva/sclera: Conjunctivae normal. Cardiovascular: Rate and Rhythm: Normal rate and regular rhythm. Pulses: Normal pulses. Radial pulses are 2+ on the right side and 2+ on the left side. Posterior tibial pulses are 2+ on the right side and 2+ on the left side. Heart sounds: Normal heart sounds, S1 normal and S2 normal. No murmur heard. Pulmonary: Effort: Pulmonary effort is normal. No respiratory distress. Breath sounds: Normal breath sounds. Abdominal: General: Bowel sounds are normal. Palpations: Abdomen is soft. Tenderness: There is no abdominal tenderness. Musculoskeletal: Right lower leg: No edema. Left lower leg: No edema. Skin: General: Skin is warm and dry. Neurological: Mental Status: He is alert and oriented to person, place, and time. Psychiatric: Behavior: Behavior is cooperative. RECENT LABS: Lab Results Component Value Date WBC 10.5 07/14/2019 HGB 16.1 07/14/2019 HCT 47.6 07/14/2019 PLT 257 07/14/2019 INR 0.9 07/14/2019 PTT 34 07/14/2019 SODIUM 133 (L) 07/14/2019 K 3.9 07/14/2019 CL 98 07/14/2019 CO2 27 07/14/2019 CALCIUM 9.3 07/14/2019 GLU 184 (H) 03/29/2023 CREATININE 0.58 (L) 07/14/2019 BUN 8 07/14/2019 GFR >60 07/14/2019 GFR >60 07/14/2019 *Please note that labs listed above are the most recent lab values available in [facility] at the time ofthe office visit and additional labs may have been drawn since that time. ASSESSMENT / DIAGNOSIS: Spinal stenosis of cervical region PLAN: Zeeshan Carney Marian is scheduled for Anterior Corpectomy Cervical/C5-7 Cervical Arthroplasty . Diann Vela, MK-DIRECTOR EMPLOYMENT 06/06/23 1434 Diann Vela APRN-ASHUTOSH 06/10/23 1622 [facility] in [facility]24 Miscellaneous Notes* Telephone Encounter - Tila Matthews - 06/07/2023 10:02 AM EDT Fax results received: HgA1C of 12.7 Zeeshan was called to discuss his elevated HgA1C results. He says he has been taking his diabetes medication regularly. He says that he has been drinking a lot of chocolate milk and has had a steroidinjection in the past few months. He says the steroids always increase his blood sugar levels. He was informed that Dr. Patricia would be advised of the above and he would receive a call back to [facility] know if the surgery was still going to be done on 06/10/23. * Telephone Encounter - Tila Matthews - 06/07/2023 10:[address] Patricia agrees to keep the surgery scheduled as planned. Zeeshan was called and informed that the surgery would remain on the schedule as planned. He was advised to monitor his diet and blood sugars closely over the weekend. He expresses understanding. documented in [facility] encounter[facility]24 Telephone encounter Note* Telephone Encounter - Tila Matthews - 06/07/2023 10:02 AM EDT Fax results received: HgA1C of 12.7 Zeeshan was called to discuss his elevated HgA1C results. He says he has been taking his diabetes medication regularly. He says that he has been drinking a lot of chocolate milk and has had a steroidinjection in the past few months. He says the steroids always increase his blood sugar levels. He was informed that Dr. Patricia would be advised of the above and he would receive a call back to [facility] know if the surgery was still going to be done on 06/10/23. [facility] Telephone encounter Note* Telephone Encounter - Tila Matthews - 06/07/2023 10:[address] Patricia agrees to keep the surgery scheduled as planned. Zeeshan was called and informed that the surgery would remain on the schedule as planned. He was advised to monitor his diet and blood sugars closely over the weekend. He expresses understanding. [facility] Nurse Note* Perioperative Nursing Note - Lovely Shields RN - 06/07/2023 8:32 AM EDT ANESTHESIA REVIEW OR 06/10/23 CERVICAL CORPECTOMY: Asthma, CAD, stent x 3, DM, GERD, HTN, no cp or sob. Cardiac clearance 06/06/23, cardiac note 04/24/23, echo 07/21/20, cath 02/25/22, EKG's. Reviewed andaccepted by Dr. Rodriguez, no further orders or requests. [facility] Nurse Note* Perioperative Nursing Note - Lovely Shields RN - 06/07/2023 8:[address] Patricia notified of A1c result. [facility] History and physical note* Diann Vela APRN-ASHUTOSH - 06/06/2023 1:15 PM EDT PRE-ADMISSION TESTING HISTORY AND PHYSICAL EXAM DATE: 06/06/23 PCP: CRYSTAL CARMONA MD CHIEF COMPLAINT: Spinal stenosis of cervical region HISTORY OF PRESENT ILLNESS: Zeeshan Llanos, a 47 y.o. White or male, presents to [facility] for a pre- surgical H&P for a planned anterior cervical corpectomy and arthroplasty. He complains of chronic neck pain taht has progressively worsened. Associated with pain radiating down left arm, numbness and tingling in left arm and left arm weakness. He takes Vicodin or Tylenol for pain control. Denies loss of bowel/bladder control. PAST MEDICAL HISTORY: Past Medical History: Diagnosis Date Arthritis Asthma Back pain spinal cord stimulator Chronic pain disorder Coronary artery disease 2020 stents x3 Dental disease broken teeth, on ATB for dental infection started 06/05/23 Diabetes mellitus type 2, controlled [place] oral meds and insulin Fractures rt hand boxers fx GERD (gastroesophageal reflux disease) Hyperlipidemia Hypertension Injury of back Lumbar disc disease DC (myocardial infarction) [place] 2020 DC (myocardial infarction) [place] 02/24/2022 Neuropathy Psoriasis uses a cream prn Spinal stenosis of cervical region no injections to area, denies injury Visual impairment wears glasses PAST SURGICAL HISTORY: Past Surgical History: Procedure Laterality Date BLOCK MEDIAL BRANCH NERVE Bilateral 11/16/2016 Performed by Zeeshan Huerta MD at [facility] CORONARY ANGIOPLASTY WITH STENT PLACEMENT 2020 CORONARY ANGIOPLASTY WITH STENT PLACEMENT 02/24/2022 HERNIA REPAIR umbilical, late 30's early 40's INJECTION BLOCK EPIDURAL CAUDAL STEROID N/A 01/12/2022 Performed by Zeeshan Huerta MD at [facility] INJECTION BLOCK NERVE MEDIAL BRANCH Bilat L 4/5, 5/1 Bilateral 11/16/2022 Performed by Zeeshan Huerta MD at [facility] INJE[facility] BLOCK NERVE MEDIAL BRANCH Bilat L 4/5,5/1 Bilateral 09/28/2022 Performed by Zeeshan Huerta MD at [facility] INJECTION BLOCK SACROILIAC JOINT Left 08/03/2022 Performed by Zeeshan Huerta MD at [facility] INJECTION MEDIAL BRANCH NERVE BLOCK Bilateral L 4/5, 5/1 Bilateral 01/09/2019 Performed by Zeeshan Huerta MD at [facility] INJECTION NERVE BLOCK Right Sciatic Right 04/17/2019 Performed by Zeeshan Huerta MD at [facility] INJECTION NERVE ROOT LEFT L5,1 Left 09/21/2016 Performed by Zeeshan Huerta MD at [facility] INJECTION SI JOINT Bilateral SI Joint Bilateral 02/06/2019 Performed by Zeeshan Huerta MD at [facility] INJECTION SI JOINT Bilateral SI Joint Bilateral 12/12/2018 Performed by Zeeshan Huerta MD at [facility] INJECTION STEROID EPI 1 WITH SEDATION Right L 5, 1 NR Right 05/01/2019 Performed by Zeeshan Huerta MD at [facility] INJECTION STEROID EPI 1 WITH SEDATION: L45 parmjit x 1 N/A 12/17/2016 Performed by Zeeshan Huerta MD at [facility] INSERTION TRIAL STIMULATOR SPINAL CORD N/A 03/01/2017 Performed by Zeeshan Huerta MD at [facility] Lumbar L4/5 ESIx1 N/A 11/23/2016 Performed by Zeeshan Huerta MD at [facility] LUMBAR SPINE SURGERY 10/29/2012 microdiscectomy, left side MICRO LUMBAR DISCECTOMY L5-S1 RIGHT Right 07/21/2019 Performed by Eugene Patricia MD at [facility] RADIO FREQUENCY ABLATION L2/3,3/4 Left 08/10/2016 Performed by Zeeshan Huerta MD at [facility] RADIO FREQUENCY ABLATION L2/3,3/4 Right 07/27/2016 Performed by Zeeshan Huerta MD at [facility] RADIOFREQUENCY ABLATION SPINAL Left L 4/5, 5/1 Left 03/01/2023 Performed by Zeeshan Huerta MD at [facility] RADIOFREQUENCY ABLATION SPINAL right L 4/5, 5/1 Right 03/29/2023 Performed by Zeeshan Huerta MD at [facility] FAMILY HISTORY: Family History Problem Relation Age of Onset Epilepsy Mother Seizures Mother Hypertension Father Heart disease Father Cancer Father Diabetes Father Back Problems Father Pancreatitis Father Neck Problems Father Heart disease Brother Diabetes Brother Anesthesia problems Neg Hx SOCIAL HISTORY: The patient reports that he does not currently use alcohol. He reports that he has been smoking cigarettes. He started smoking about 30 years ago. He has a 46.5 pack-year smoking history. He quit smokeless tobacco use about 4 years ago. His smokeless tobacco use included chew. He reports no history of drug use. ALLERGIES: Allergies Allergen Reactions Cephalexin Itching MEDICATIONS: Current Outpatient Medications: albuterol (VENTOLIN HFA) 90 mcg/actuation inhaler, Inhale 2 puffs every 4 (four) hours as needed for wheezing or shortness of breath Indications: asthma attack. Uses most days, Disp: , Rfl: aspirin 81 mg, Take 1 tablet (81 mg total) by mouth in the morning. Indications: blood clot prevention following percutaneous coronary intervention. HOLDING SINCE 05/30/23., Disp: , Rfl: carisoprodoL (SOMA) 350 mg tablet, Take 1 tablet (350 mg total) by mouth in the morning and 1 tablet (350 mg total) before bedtime. Indications: muscle spasm., Disp: , Rfl: clindamycin (CLEOCIN) 300 mg capsule, Take 1 capsule (300 mg total) by mouth 3 (three) times a day.Dental infection, Disp: , Rfl: dapagliflozin (FARXIGA) 10 mg tablet, Take 1 tablet (10 mg total) by mouth in the morning. Indications: type 2 diabetes mellitus. HOLD 3 DAYS PRIOR TO SURGERY., Disp: , Rfl: DEXILANT 60 mg capsule, Take 1 capsule (60 mg total) by mouth in the morning. Indications: gastroesophageal reflux disease., Disp: , Rfl: 4 finasteride (PROSCAR) 5 mg tablet, Take 1 tablet (5 mg total) by mouth in the morning. Indications:enlarged prostate with urination problem., Disp: , Rfl: hydroCHLOROthiazide (HYDRODIURIL) 25 mg tablet, Take 1 tablet (25 mg total) by mouth daily Indications: high blood pressure., Disp: , Rfl: HYDROcodone-acetaminophen (NORCO) 5-325 mg per tablet, Take 1 tablet by mouth every 4 (four) hours as needed for pain., Disp: , Rfl: insulin glargine U-300 conc (TOUJEO MAX U-300 SOLOSTAR) 300 unit/mL (3 mL) insulin pen, Inject 40 Unit under the skin Daily before evening meal Indications: type 2 diabetes mellitus., Disp: , Rfl: lisinopriL (PRINIVIL,ZESTRIL) 2.5 mg tablet, Take 1 tablet (2.5 mg total) by mouth in the morning. Indications: high blood pressure., Disp: , Rfl: meloxicam (MOBIC) 15 mg tablet, Take 1 tablet (15 mg total) by mouth in the morning and 1 tablet (15 mg total) before bedtime. States is holding for surgery last dose 05/30/23., Disp: , Rfl: metFORMIN (GLUCOPHAGE) 500 mg tablet, Take 1 tablet (500 mg total) by mouth in the morning and 1 tablet (500 mg total) in the evening. Take with meals. Indications: type 2 diabetes mellitus., Disp: ,Rfl: metoprolol tartrate (LOPRESSOR) 25 mg tablet, Take 1 tablet (25 mg total) by mouth in the morning and 1 tablet (25 mg total) before bedtime. Indications: high blood pressure., Disp: , Rfl: NON FORMULARY, Take 50 mcg by mouth in the morning. Med Name: Prevagen 50 mcg Holding for surgery 06/06/23., Disp: , Rfl: pantoprazole (PROTONIX) 40 mg EC tablet, Take 1 tablet (40 mg total) by mouth in the morning and 1 tablet (40 mg total) before bedtime., Disp: , Rfl: pregabalin (LYRICA) 150 mg capsule, Take 1 capsule (150 mg total) by mouth 3 (three) times a day. (Patient taking differently: Take 1 capsule (150 mg total) by mouth in the morning and 1 capsule (150mg total) before bedtime. PAIN.), Disp: 90 capsule, Rfl: 1 rosuvastatin (CRESTOR) 20 mg tablet, Take 1 tablet (20 mg total) by mouth in the morning. HIGH CHOLESTEROL., Disp: , Rfl: STIOLTO RESPIMAT 2.5-2.5 mcg/actuation mist, Take 2 puffs by mouth every morning. asthma, Disp: , Rfl: tamsulosin (FLOMAX) 0.4 mg capsule, Take 1 capsule (0.4 mg total) by mouth in the morning. Indications: enlarged prostate with urination problem., Disp: , Rfl: amitriptyline (ELAVIL) 50 mg tablet, Take 1 tablet (50 mg total) by mouth nightly. (Patient not taking: Reported on 06/06/2023), Disp: , Rfl: 0 REVIEW OF SYSTEMS: Review of Systems Constitutional: Negative. Negative for activity change and appetite change. HENT: Negative for congestion, ear discharge, ear pain, sore throat and trouble swallowing. Eyes: Positive for visual disturbance (glasses). Negative for pain and discharge. Respiratory: Negative for apnea, cough, shortness of breath, wheezing and stridor. Cardiovascular: Negative for chest pain and palpitations. Gastrointestinal: Negative for nausea, vomiting, abdominal pain, diarrhea and abdominal distention. Endocrine: Negative. Genitourinary: Negative for dysuria, urgency and flank pain. Musculoskeletal: Positive for back pain and arthralgias. Negative for myalgias and joint swelling. Skin: Negative for rash and wound. Allergic/Immunologic: Negative. Neurological: Positive for weakness, numbness and headaches. Negative for dizziness, seizures, syncope and light-headedness. Psychiatric/Behavioral: Negative for agitation. VITAL SIGNS: BP 127/77 Pulse 71 Temp 36.7 C (98 F) (Temporal) Resp 16 Ht 182.9 cm (6') Wt 93.9 kg (207lb 0.2 oz) SpO2 96% BMI 28.08 kg/m PHYSICAL EXAM: Physical Exam Vitals reviewed. Constitutional: General: He is not in acute distress. Appearance: Normal appearance. He is well-developed. He is not ill-appearing or toxic-appearing. HENT: Head: Normocephalic. Eyes: General: Lids are normal. Conjunctiva/sclera: Conjunctivae normal. Cardiovascular: Rate and Rhythm: Normal rate and regular rhythm. Pulses: Normal pulses. Radial pulses are 2+ on the right side and 2+ on the left side. Posterior tibial pulses are 2+ on the right side and 2+ on the left side. Heart sounds: Normal heart sounds, S1 normal and S2 normal. No murmur heard. Pulmonary: Effort: Pulmonary effort is normal. No respiratory distress. Breath sounds: Normal breath sounds. Abdominal: General: Bowel sounds are normal. Palpations: Abdomen is soft. Tenderness: There is no abdominal tenderness. Musculoskeletal: Right lower leg: No edema. Left lower leg: No edema. Skin: General: Skin is warm and dry. Neurological: Mental Status: He is alert and oriented to person, place, and time. Psychiatric: Behavior: Behavior is cooperative. RECENT LABS: Lab Results Component Value Date WBC 10.5 07/14/2019 HGB 16.1 07/14/2019 HCT 47.6 07/14/2019 PLT 257 07/14/2019 INR 0.9 07/14/2019 PTT 34 07/14/2019 SODIUM 133 (L) 07/14/2019 K 3.9 07/14/2019 CL 98 07/14/2019 CO2 27 07/14/2019 CALCIUM 9.3 07/14/2019 GLU 184 (H) 03/29/2023 CREATININE 0.58 (L) 07/14/2019 BUN 8 07/14/2019 GFR >60 07/14/2019 GFR >60 07/14/2019 *Please note that labs listed above are the most recent lab values available in [facility] at the time ofthe office visit and additional labs may have been drawn since that time. ASSESSMENT / DIAGNOSIS: Spinal stenosis of cervical region PLAN: Zeeshan Llanos is scheduled for Anterior Corpectomy Cervical/C5-7 Cervical Arthroplasty . ADAM Escobedo 06/06/23 1434 [place] Phone: [phone] History and physical note* ADAM Escobedo - 06/06/2023 1:15 PM EDT PRE-ADMISSION TESTING HISTORY AND PHYSICAL EXAM DATE: 06/06/23 PCP: CRYSTAL CARMONA MD CHIEF COMPLAINT: Spinal stenosis of cervical region HISTORY OF PRESENT ILLNESS: Zeeshan Llanos, a 47 y.o. White or male, presents to [facility] for a pre- surgical H&P for a planned anterior cervical corpectomy and arthroplasty. He complains of chronic neck pain taht has progressively worsened. Associated with pain radiating down left arm, numbness and tingling in left arm and left arm weakness. He takes Vicodin or Tylenol for pain control. Denies loss of bowel/bladder control. PAST MEDICAL HISTORY: Past Medical History: Diagnosis Date Arthritis Asthma Back pain spinal cord stimulator Chronic pain disorder Coronary artery disease 2020 stents x3 Dental disease broken teeth, on ATB for dental infection started 06/05/23 Diabetes mellitus type 2, controlled [place] oral meds and insulin Fractures rt hand boxers fx GERD (gastroesophageal reflux disease) Hyperlipidemia Hypertension Injury of back Lumbar disc disease DC (myocardial infarction) [place] 2020 DC (myocardial infarction) [place] 02/24/2022 Neuropathy Psoriasis uses a cream prn Spinal stenosis of cervical region no injections to area, denies injury Visual impairment wears glasses PAST SURGICAL HISTORY: Past Surgical History: Procedure Laterality Date BLOCK MEDIAL BRANCH NERVE Bilateral 11/16/2016 Performed by Zeeshan Huerta MD at [facility] CORONARY ANGIOPLASTY WITH STENT PLACEMENT 2020 CORONARY ANGIOPLASTY WITH STENT PLACEMENT 02/24/2022 HERNIA REPAIR umbilical, late 30's early 40's INJECTION BLOCK EPIDURAL CAUDAL STEROID N/A 01/12/2022 Performed by Zeeshan Huerta MD at [facility] BLOCK NERVE MEDIAL BRANCH Bilat L 4/5, 5/1 Bilateral 11/16/2022 Performed by Zeeshan Huerta MD at [facility] INJECTION BLOCK NERVE MEDIAL BRANCH Bilat L 4/5,5/1 Bilateral 09/28/2022 Performed by [facility] MD at [facility] [facility] INJECTION BLOCK SACROILIAC JOINT Left 08/03/2022 Performed by Zeeshan Huerta MD at [facility] MEDIAL BRANCH NERVE BLOCK Bilateral L 4/5, 5/1 Bilateral 01/09/2019 Performed by Zeeshan Huerta MD at [facility] INJECTION NERVE BLOCK Right Sciatic Right 04/17/2019 Performed by Zeeshan Huerta MD at [facility] NERVE ROOT LEFT L5,1 Left 09/21/2016 Performed by Zeeshan Huerta MD at [facility] SI JOINT Bilateral SI Joint Bilateral 02/06/2019 Performed by Zeeshan Huerta MD at [facility] SI JOINT Bilateral SI Joint Bilateral 12/12/2018 Performed by Zeeshan Huerta MD at [facility] INJECTION STEROID EPI 1 WITH SEDATION Right L 5, 1 NR Right 05/01/2019 Performed by Zeeshan Huerta MD at [facility] INJECTION STEROID EPI 1 WITH SEDATION: L45 parmjit x 1 N/A 12/17/2016 Performed by Zeeshan Huerta MD at [facility] INSERTION TRIAL STIMULATOR SPINAL CORD N/A 03/01/2017 Performed by Zeeshan Huerta MD at [facility] Lumbar L4/5 ESIx1 N/A 11/23/2016 Performed by Zeeshan Huerta MD at [facility] LUMBAR SPINE SURGERY 10/29/2012 microdiscectomy, left side MICRO LUMBAR DISCECTOMY L5-S1 RIGHT Right 07/21/2019 Performed by Eugene Patricia MD at [facility] RADIO FREQUENCY ABLATION L2/3,3/4 Left 08/10/2016 Performed by Zeeshan Huerta MD at [facility] RADIO FREQUENCY ABLATION L2/3,3/4 Right 07/27/2016 Performed by Zeeshan Huerta MD at [facility] RADIOFREQUENCY ABLATION SPINAL Left L 4/5, 07/23 Left 03/01/2023 Performed by Zeeshan Huerta MD at [facility] RADIOFREQUENCY ABLATION SPINAL right L 4/5, 07/23 Right 03/29/2023 Performed by Zeeshan Huerta MD at [facility] FAMILY HISTORY: Family History Problem Relation Age of Onset Epilepsy Mother Seizures Mother Hypertension Father Heart disease Father Cancer Father Diabetes Father Back Problems Father Pancreatitis Father Neck Problems Father Heart disease Brother Diabetes Brother Anesthesia problems Neg Hx SOCIAL HISTORY: The patient reports that he does not currently use alcohol. He reports that he has been smoking cigarettes. He started smoking about 30 years ago. He has a 46.5 pack-year smoking history. He quit smokeless tobacco use about 4 years ago. His smokeless tobacco use included chew. He reports no history of drug use. ALLERGIES: Allergies Allergen Reactions Cephalexin Itching MEDICATIONS: Current Outpatient Medications: albuterol (VENTOLIN HFA) 90 mcg/actuation inhaler, Inhale 2 puffs every 4 (four) hours as needed for wheezing or shortness of breath Indications: asthma attack. Uses most days, Disp: , Rfl: aspirin 81 mg, Take 1 tablet (81 mg total) by mouth in the morning. Indications: blood clot prevention following percutaneous coronary intervention. HOLDING SINCE 05/30/23., Disp: , Rfl: carisoprodoL (SOMA) 350 mg tablet, Take 1 tablet (350 mg total) by mouth in the morning and 1 tablet (350 mg total) before bedtime. Indications: muscle spasm., Disp: , Rfl: clindamycin (CLEOCIN) 300 mg capsule, Take 1 capsule (300 mg total) by mouth 3 (three) times a day.Dental infection, Disp: , Rfl: dapagliflozin (FARXIGA) 10 mg tablet, Take 1 tablet (10 mg total) by mouth in the morning. Indications: type 2 diabetes mellitus. HOLD 3 DAYS PRIOR TO SURGERY., Disp: , Rfl: DEXILANT 60 mg capsule, Take 1 capsule (60 mg total) by mouth in the morning. Indications: gastroesophageal reflux disease., Disp: , Rfl: 4 finasteride (PROSCAR) 5 mg tablet, Take 1 tablet (5 mg total) by mouth in the morning. Indications:enlarged prostate with urination problem., Disp: , Rfl: hydroCHLOROthiazide (HYDRODIURIL) 25 mg tablet, Take 1 tablet (25 mg total) by mouth daily Indications: high blood pressure., Disp: , Rfl: HYDROcodone-acetaminophen (NORCO) 5-325 mg per tablet, Take 1 tablet by mouth every 4 (four) hours as needed for pain., Disp: , Rfl: insulin glargine U-300 conc (TOUJEO MAX U-300 SOLOSTAR) 300 unit/mL (3 mL) insulin pen, Inject 40 Unit under the skin Daily before evening meal Indications: type 2 diabetes mellitus., Disp: , Rfl: lisinopriL (PRINIVIL,ZESTRIL) 2.5 mg tablet, Take 1 tablet (2.5 mg total) by mouth in the morning. Indications: high blood pressure., Disp: , Rfl: meloxicam (MOBIC) 15 mg tablet, Take 1 tablet (15 mg total) by mouth in the morning and 1 tablet (15 mg total) before bedtime. States is holding for surgery last dose 05/30/23., Disp: , Rfl: metFORMIN (GLUCOPHAGE) 500 mg tablet, Take 1 tablet (500 mg total) by mouth in the morning and 1 tablet (500 mg total) in the evening. Take with meals. Indications: type 2 diabetes mellitus., Disp: ,Rfl: metoprolol tartrate (LOPRESSOR) 25 mg tablet, Take 1 tablet (25 mg total) by mouth in the morning and 1 tablet (25 mg total) before bedtime. Indications: high blood pressure., Disp: , Rfl: NON FORMULARY, Take 50 mcg by mouth in the morning. Med Name: Prevagen 50 mcg Holding for surgery 06/06/23., Disp: , Rfl: pantoprazole (PROTONIX) 40 mg EC tablet, Take 1 tablet (40 mg total) by mouth in the morning and 1 tablet (40 mg total) before bedtime., Disp: , Rfl: pregabalin (LYRICA) 150 mg capsule, Take 1 capsule (150 mg total) by mouth 3 (three) times a day. (Patient taking differently: Take 1 capsule (150 mg total) by mouth in the morning and 1 capsule (150mg total) before bedtime. PAIN.), Disp: 90 capsule, Rfl: 1 rosuvastatin (CRESTOR) 20 mg tablet, Take 1 tablet (20 mg total) by mouth in the morning. HIGH CHOLESTEROL., Disp: , Rfl: STIOLTO RESPIMAT 2.5-2.5 mcg/actuation mist, Take 2 puffs by mouth every morning. asthma, Disp: , Rfl: tamsulosin (FLOMAX) 0.4 mg capsule, Take 1 capsule (0.4 mg total) by mouth in the morning. Indications: enlarged prostate with urination problem., Disp: , Rfl: amitriptyline (ELAVIL) 50 mg tablet, Take 1 tablet (50 mg total) by mouth nightly. (Patient not taking: Reported on 06/06/2023), Disp: , Rfl: 0 REVIEW OF SYSTEMS: Review of Systems Constitutional: Negative. Negative for activity change and appetite change. HENT: Negative for congestion, ear discharge, ear pain, sore throat and trouble swallowing. Eyes: Positive for visual disturbance (glasses). Negative for pain and discharge. Respiratory: Negative for apnea, cough, shortness of breath, wheezing and stridor. Cardiovascular: Negative for chest pain and palpitations. Gastrointestinal: Negative for nausea, vomiting, abdominal pain, diarrhea and abdominal distention. Endocrine: Negative. Genitourinary: Negative for dysuria, urgency and flank pain. Musculoskeletal: Positive for back pain and arthralgias. Negative for myalgias and joint swelling. Skin: Negative for rash and wound. Allergic/Immunologic: Negative. Neurological: Positive for weakness, numbness and headaches. Negative for dizziness, seizures, syncope and light-headedness. Psychiatric/Behavioral: Negative for agitation. VITAL SIGNS: BP 127/77 Pulse 71 Temp 36.7 C (98 F) (Temporal) Resp 16 Ht 182.9 cm (6') Wt 93.9 kg (207lb 0.2 oz) SpO2 96% BMI 28.08 kg/m PHYSICAL EXAM: Physical Exam Vitals reviewed. Constitutional: General: He is not in acute distress. Appearance: Normal appearance. He is well-developed. He is not ill-appearing or toxic-appearing. HENT: Head: Normocephalic. Eyes: General: Lids are normal. Conjunctiva/sclera: Conjunctivae normal. Cardiovascular: Rate and Rhythm: Normal rate and regular rhythm. Pulses: Normal pulses. Radial pulses are 2+ on the right side and 2+ on the left side. Posterior tibial pulses are 2+ on the right side and 2+ on the left side. Heart sounds: Normal heart sounds, S1 normal and S2 normal. No murmur heard. Pulmonary: Effort: Pulmonary effort is normal. No respiratory distress. Breath sounds: Normal breath sounds. Abdominal: General: Bowel sounds are normal. Palpations: Abdomen is soft. Tenderness: There is no abdominal tenderness. Musculoskeletal: Right lower leg: No edema. Left lower leg: No edema. Skin: General: Skin is warm and dry. Neurological: Mental Status: He is alert and oriented to person, place, and time. Psychiatric: Behavior: Behavior is cooperative. RECENT LABS: Lab Results Component Value Date WBC 10.5 07/14/2019 HGB 16.1 07/14/2019 HCT 47.6 07/14/2019 PLT 257 07/14/2019 INR 0.9 07/14/2019 PTT 34 07/14/2019 SODIUM 133 (L) 07/14/2019 K 3.9 07/14/2019 CL 98 07/14/2019 CO2 27 07/14/2019 CALCIUM 9.3 07/14/2019 GLU 184 (H) 03/29/2023 CREATININE 0.58 (L) 07/14/2019 BUN 8 07/14/2019 GFR >60 07/14/2019 GFR >60 07/14/2019 *Please note that labs listed above are the most recent lab values available in [facility] at the time ofthe office visit and additional labs may have been drawn since that time. ASSESSMENT / DIAGNOSIS: Spinal stenosis of cervical region PLAN: Zeeshan Llanos is scheduled for Anterior Corpectomy Cervical/C5-7 Cervical Arthroplasty . ADAM Escobedo 06/06/23 1434 documented in this encounterWashington County [facility] HospitalGumGum [id number] Instructions* Patient Instructions* Venus Mueller RN - 06/06/2023 1:15 PM EDT Images from the original note were not included. Your surgery/procedure is scheduled at [facility] on 06/10/23 at 2:30pm Arrival Time 12:30pm [facility] Address: [address] [place], [place] [address], [place] [address] [address] located on [facility]. Report to the Entrance B. Check in at the information desk the surgery. The waiting room located on the second floor. If you have any questions prior to surgery, please call Pre-Admission Clinic at [phone] between 7:30 am and 4:30 pm Saturday through Saturday. If you have questions the morning of surgery, please call the Pre-op Department at [phone]. Notify your SURGEON if you develop any illness such as a cold, cough, fever, sore throat, vomiting or are hospitalized between now and your surgery. CONTINUE TO TAKE YOUR MEDICATIONS PRESCRIBED. DO NOT STOP YOUR PRESCRIBED MEDICATIONS UNLESS DIRECTED BY YOUR PRESCRIBING PHYSICIAN BRING PAIN STIMULATOR REMOTE Take the following medications the morning of surgery with a sip of water: Flomax,Crestor, Lyrica, Metoprolol,[place] if needed,Protonix and Clindamycin DIABETIC MEDS: HOLD FARXIGA 3 DAYS PRIOR TO SURGERY Take inhalers as prescribed the morning of surgery. . Blood thinners: Medications such as Coumadin, Heparin, Aspirin, Plavix, Eliquis, Pradaxa) Please contact your physician regarding a stop/hold date for these medications. Hold Aspirin as directed Diabetics: If you take insulin, contact your prescribing doctor for instructions on how to manage this the night before and the morning of surgery. Non-steriodal Anti-Inflammatory Drugs (NSAIDS)- Stop 3 days prior to surgery unless otherwise directed by your surgeon. HOLD MOBIC 3 DAYS PRIOR OR DIRECTED BY SURGEON Vitamins/Herbal Products: You may continue to take your prescribed vitamins such as potassium, iron, vitamin B, vitamin C, or multivitamin unless specifically instructed by your surgeon to stop. STOPtaking all herbal products/teas one week prior to your surgery. Marijuana: Stop marijuana 72 hours prior to surgery, stop CBD oil 48 hours prior to surgery. If you have been given bowel prep instructions by your surgeon, please call the surgeon's office with any questions about these instructions. What do I do the day of Surgery? Age 2 through adult - Stop all solids by midnight, You may have clear liquids up to 2 hours before surgery, unless otherwise instructed by your surgeon. Clear liquids are: water, sports drinks such as Gatorade or G2, or apple juice. You may NOT have: tube feedings, dairy products, alcoholic beverages, orange juice, or any liquids with solids or pulp in it. If applicable, shower again with CHG soap the morning of your surgery. If you received a green plastic bracelet, bring it with you the day of surgery and your nurse will put it on you. In order to help prevent infection post-operatively, you may be asked to use a CHG mouthwash when you arrive to the Pre-op area. Your nurse will provide instruction the morning of. What do I need to do to prepare for surgery? If you will be going home the same day as your surgery, arrange for an adult over [address] Riding in a bus or taxi by yourself is not permitted. You should not smoke or drink alcohol 24 hours before your surgery. Alcohol thins the blood and may cause bleeding problems during surgery. Smoking increases the risk of breathing problems after surgery. If you have been assigned ALETHEA Education by your surgeon's office, please complete this education prior to your surgery. For questions regarding ALETHEA education, reach out to your surgeon's office. If you have been given a prescription for occupational, physical or speech therapy, please set up these appointments before your procedure. If you would like to schedule therapy at a [facility] facility, please call [phone] ([phone]). Do not use lotions, creams, powders, perfume, make up, cologne or after-shaves day of surgery. Remove ALL jewelry including wedding rings, body piercings,hair extensions that contain metal, nailpolish, make-up, and contact lens. You may brush your teeth the morning of surgery, but do not swallow the water. Wear your dentures and partial plates to the hospital (no adhesive). Shower the night the before. If applicable, use the CHG (chlorhexidine gluconate) soap or wipes What should I bring to the hospital? If you received a green plastic bracelet, bring it with you the day of surgery and your nurse will put it on you. Eyeglass or contact lens case If you will be spending the night, please bring personal care items and leave them in the car untilyou are taken to your room after surgery. Leave ALL valuables at home. If any of these instructions conflict with those you received from the surgeon, please seek clarification from your surgeon's office. DEEP BREATHING EXERCISES This exercise helps promote good air exchange and helps to prevent pneumonia after surgery. Breathe in slowly and deeply through the nose. Hold your breath for a few seconds and then exhale slowly through the mouth. Repeat this three times and then cough.Coughing helps to clear your lungs. If you have had a surgery with an incision into your abdomen or chest, press gently against your incision with a pillow or a folded blanket when you cough. Please be aware - it may not be arnold to cough following some types of surgeries involving the eyes,ears, sinuses and throat. Always follow your doctor's instructions. LEG EXERCISE These exercises help promote good circulation and help to prevent blood clots after surgery. Point your toes to the ceiling and then point them to the wall. Do this slowly about 15-20 times. You may also move your feet in circles. Do the exercise that is most comfortable for you. If you have had surgery involving your shoulder or arm, we recommend you move your fingers. PRACTICING We ask that you begin practicing these exercises before your surgery. After surgery try to do both exercises at least every 2 hours during the day and early evening. SURGICAL SITE INFECTION PREVENTION What is a Surgical Site Infection? Infection can happen to the area of the body where surgery is done. This is called a surgical site infection (SSI). A SSI does not happen very often. Can SSIs be treated? Antibiotics are used to treat SSI. Some patients may need another surgery to treat the infection. The doctor will discuss treatment options with you. What are some of the things that hospitals are doing to prevent SSIs? Soap and water or alcohol hand rub are used before and after caring for each patient. Special soap is used to clean surgery workers hands and arms just before the surgery. Masks, gowns, gloves and hair covers are worn during the surgery to keep the area clean. Hair in the surgery area may be removed with clippers (not razors). A special soap that kills germs is used to clean the skin at the surgery site. Antibiotics may be given before the surgery starts. What can you do to prevent SSIs? Before surgery: You may be asked to shower or bathe with a special soap that kills germs the night before and the day of surgery. Use the soap as you were told. If you smoke, stop or cut down. Ask your doctor about ways to quit. Do not shave near where you will have surgery. Shaving can irritate the skin and make it easier to get and infection. After surgery: Be sure that the doctors and nurses clean their hands before and after touching you. Be sure your family and friends clean their hands before and after visiting you. Do not be afraid to remind them. * Care for your wound at home as told by your doctor or nurse * Call your doctor right away if you have fever, redness, increased pain, or drainage at the surgery site. Further questions? Contact the doctor, nurse or the Infection Prevention and Control department if you have any questions. PATIENT RIGHTS AND RESPONSIBILITIES As a patient at [facility], you have the right to: Receive medical care and be informed of who is taking care of you Be treated with dignity and respect Have a family member/small business representative of choice and your physician notified of your admission Receive information and actively participate in decisions about your care and treatment Refuse care, treatment and services Decide who may provide your support and speak for you Access christianity and spiritual services Participate in ethical issues and questions about your care Receive private and confidential care Have appropriate assessment and management of your pain Know guest visitation restrictions or limitations Have an advance directive Access protective services Consent or refuse to participate in research studies or production or recordings, films or other images Have resolution of your complaints Receive information of hospital charges and payment methods Patient/patient small business representative responsibilities are to: Provide information about health status to facilitate care, treatment and services Follow the treatment, plan, keep appointments and speak up when you do not understand the plan Respect the rights of other patients and healthcare personnel Follow organizational rules and regulations that support quality care and a safe environment Fulfill financial obligations as promptly as possible Bathing Before Surgery- Patients greater than 2 months of age You can help to lower your chance of infection at the site of your surgery by showering or bathing with a special soap called chlorhexidine gluconate (CHG). Germs live on your skin. This special soapwill help lower the amount of germs so they do not get into your surgery site. Special points to know: Do not use this soap if you know that you are allergic to CHG. Shower or bathe with CHG the night before and the morning of surgery. Do not shave the area of your body where the surgery will be done within 7 days of surgery. The CHG may make your skin a little dry, but do not use lotion. Steps for Bathing: Wash your hair as usual with your normal shampoo. Rinse your hair and body well after you shampoo to get rid all of the shampoo. Wash gently with the CHG from the neck down, but do not scrub the skin to hard. Be sure to wash thearea of your surgery very well. If showering, turn the water off while washing and then turn the water back onto rinse. Do not get CHG in the genital (private) area. Do not get CHG in the eyes, ears, nose or mouth. (If the soap gets into the eyes, flush them immediately with water). Do not wash with regular soap after CHG is used. Pat skin dry with a soft, clean towel. Patient should sleep in freshly laundered night clothes and report for surgery in clean clothes. Scheduled Arthroplasties and Spinal Implants Full Body Surgical Prep Instructions Night Before Surgery Cleaning the skin before surgery can lower the risk of infection at the surgical site. This sheet will tell you how to use the clothes that have a rinse-free, 2% Chlorhexidine Gluconate (CHG) soap onthem. Follow the steps below very carefully Important Information: Do not use if allergic to CHG Do not shave your surgical area (or near the area) for 3 days before surgery. Shower (or bathe) and shampoo your hair with regular soap and shampoo at least one hour before you use the CHG cloths to clean your skin. Be sure your skin is completely dry and cool. Clean your skin with the CHG cloths the night before surgery at your home. Do not rinse off the CHG CHG may cause skin to itch or get red for a short time. If you have itching or redness that does not go away, rinse the areas and stop using the CHG clothes. Do not shower the morning of surgery. You may shampoo your hair at a sink. Directions: 1. Remove the plastic wrap. Open the 3 packages with scissors. There are two cloths in each package. 2. Do not let the CHG get in your eyes, ears, mouth. Do not use on open skin wounds (cuts, scrapes,sores). 3. Wipe your body in a back and forth motion using all six (6) cloths. Use each cloth for 30 seconds while using a firm massage . Cloth # 1 - Wipe your neck, shoulders, chest. The area above the jawline can be washed with soap and water. Do not allow soap and water to go below the jawline. Soap can inactivate the CHG. Cloth # 2 - Wipe both arms and hands, starting each with the shoulder and ending at fingertips. Be sure to wipe the arm pit areas. Cloth # 3 - Wipe your abdomen and groin. Be sure to wipe folds in belly and groin areas. Cloth # 4 - Wipe right leg and right foot, starting at the thigh and ending at the toes. Be sure towipe behind your knees. Cloth # 5 - Wipe left leg and left foot, starting at the thigh and ending at the toes. Be sure to wipe behind your knees. Cloth # 6 - Wipe your back starting at the base of your neck and ending at your buttocks. Cover as much area as possible. You may need help from someone. Allow area to air dry for one minute and do not rinse. It is normal for the skin to have a sticky feel for a few minutes after you use the cloths. Do not apply any lotion. Do not shower after you use the cloths. Dress in clean pajamas at night and wear clean clothes the morning of surgery. documented in this [facility]03-14-2024 Miscellaneous Notes* Perioperative Nursing Note - Venus Mueller RN - 06/06/2023 1:15 PM EDT Advised to bring remote for pain stimulator documented in this [facility]03-14-2024 Nurse Note* Perioperative Nursing Note - Venus Mueller RN - 06/06/2023 1:15 PM EDT Advised to bring remote for pain stimulator [employer] [id number] History of Present illness Narrative* Andree Freeman - 05/30/2023 10:30 AM EST In-person visit CC: Chief Complaint Patient presents with Follow-up manager inpatient/ep/lumbar now cervical/films pushed to [facility]/last seen 08/2019/mailed pkt HPI: Zeeshan Llanos is a 47 y.o. right handed male presenting with apx 10 months of neck pain and left arm pain. He is also having daily headaches that start at the base of the skull. He has numbness/tingling/pins and needles in digits 1-4 on the left and it has also started intermittently on the 5th digit. Pain is daily and constant in timing. Described as tension through the neck and shoulder, pain down the back of the arm/triceps and into the arm and hand. 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 No symptoms in the right arm. Endorses dropping things more than normal on the left>right. He hasn't noticed as much fine motor because he is right handed. Also endorsing some difficulty with balance - he is unsure if this is from the low back or neck. Thinks maybe he had some problems with this before onset of neck symptomslast August, but endorses it has worsened. He has not fallen down. Denies difficulty controlling bowel or bladder function. Taking aspirin - this does not help. Daily Meloxicam does help. He has not tried injections, PT, etc for his neck/arm. He has a SCS put in by Dr. Balderas - not MRI compatible. He is vocalizing a desire to maintain motion in his neck due to his hobbies of drag racing and bow hunting. ROS: As above Past Medical History: Diagnosis Date Arthritis Asthma Back pain Chronic pain disorder Dental disease broken teeth Diabetes mellitus [place] Diabetes mellitus type 2, controlled [place] GERD (gastroesophageal reflux disease) Hypertension Injury of back Low back pain Lumbar disc disease DC (myocardial infarction) [place] 2020 [place] (myocardial infarction) [place] 02/24/2022 Neuropathy Psoriasis Visual impairment wears glasses Past Surgical History: Procedure Laterality Date BLOCK MEDIAL BRANCH NERVE Bilateral 11/16/2016 Performed by Zeeshan Huerta MD at [facility] CORONARY ANGIOPLASTY WITH STENT PLACEMENT 2020 CORONARY ANGIOPLASTY WITH STENT PLACEMENT 02/24/2022 HERNIA REPAIR umbilical INJECTION BLOCK EPIDURAL CAUDAL STEROID N/A 01/12/2022 Performed by Zeeshan Huerta MD at [facility] INJECTION BLOCK NERVE MEDIAL BRANCH Bilat L 4/5, 5/1 Bilateral 11/16/2022 Performed by Zeeshan Huerta MD at [facility] INJECTION BLOCK NERVE MEDIAL BRANCH Bilat L 4/5,5/1 Bilateral 09/28/2022 Performed by Zeeshan Huerta MD at [facility] INJECTION BLOCK SACROILIAC JOINT Left 08/03/2022 Performed by Zeeshan Huerta MD at [facility] INJECTION MEDIAL BRANCH NERVE BLOCK Bilateral L 4/5, 5/1 Bilateral 01/09/2019 Performed by Zeeshan Huerta MD at [facility] INJECTION NERVE BLOCK Right Sciatic Right 04/17/2019 Performed by Zeeshan Huerta MD at [facility] NERVE ROOT LEFT L5,1 Left 09/21/2016 Performed by Zeeshan Huerta MD at [facility] INJECTION SI JOINT Bilateral SI Joint Bilateral 02/06/2019 Performed by Zeeshan Huerta MD at [facility] INJECTION SI JOINT Bilateral SI Joint Bilateral 12/12/2018 Performed by Zeeshan Huerta MD at [facility] INJECTION STEROID EPI 1 WITH SEDATION Right L 5, 1 NR Right 05/01/2019 Performed by Zeeshan Huerta MD at [facility] INJECTION STEROID EPI 1 WITH SEDATION: L45 parmjit x 1 N/A 12/17/2016 Performed by Zeeshan Huerta MD at [facility] INSERTION TRIAL STIMULATOR SPINAL CORD N/A 03/01/2017 Performed by Zeeshan Huerta MD at [facility] Lumbar L4/5 ESIx1 N/A 11/23/2016 Performed by Zeeshan Huerta MD at [facility] MICRO LUMBAR DISCECTOMY L5-S1 RIGHT Right 07/21/2019 Performed by Eugene Patricia MD at [facility] RADIO FREQUENCY ABLATION L2/3,3/4 Left 08/10/2016 Performed by Zeeshan Huerta MD at [facility] RADIO FREQUENCY ABLATION L2/3,3/4 Right 07/27/2016 Performed by Zeeshan Huerta MD at [facility] RADIOFREQUENCY ABLATION SPINAL Left L 4/5, 5/1 Left 03/01/2023 Performed by Zeeshan Huerta MD at [facility] RADIOFREQUENCY ABLATION SPINAL right L 4/5, 5/ Right 03/29/2023 Performed by Zeeshan Huerta MD at [facility] SPINAL CORD STIMULATOR IMPLANT Bilateral 05/21/2017 SPINE SURGERY L5/S1 discectomy Current Outpatient Medications Medication Instructions albuterol (PROVENTIL HFA;VENTOLIN HFA) 90 mcg/actuation inhaler 2 puffs, inhalation, Every 4 hours PRN albuterol (VENTOLIN HFA) 90 mcg/actuation inhaler See Instructions, Instructions: inhale 2 puffs bymouth and INTO THE LUNGS every 4 to 6 hours if needed, # 36 gm, 5 Refill(s), Pharmacy: [facility] #[id number], inhale 2 puffs by mouth and INTO THE LUNGS every 4 to 6 hours if needed amitriptyline (ELAVIL) 50 mg, oral, Nightly apremilast (OTEZLA) 30 mg, oral, 2 times daily aspirin 81 mg, oral, Daily hbmyqsllvl-psllzpdu-gueekcibsy (BREZTRI AEROSPHERE) 160-9-4.8 mcg/actuation HFA aerosol inhaler 2 puffs, inhalation, 2 times daily carisoprodoL (SOMA) 350 mg, oral, 2 times daily dapagliflozin propanediol (FARXIGA) 10 mg, oral, Daily DEXILANT 60 mg, oral, Daily hydroCHLOROthiazide (HYDRODIURIL) 25 mg, oral, Daily HYDROcodone-acetaminophen (NORCO) 5-325 mg per tablet 1 tablet, Every 4 hours PRN insulin glargine U-300 conc (TOUJEO MAX U-300 SOLOSTAR) 300 unit/mL (3 mL) insulin pen 25 Unit, subcutaneous, Daily before evening meal INVOKANA 300 mg, oral, Daily lisinopriL (PRINIVIL,ZESTRIL) 2.5 mg, oral, Daily meloxicam (MOBIC) 15 mg, oral, 2 times daily metFORMIN (GLUCOPHAGE) 500 mg, oral, 2 times daily with meals metoprolol tartrate (LOPRESSOR) 25 mg, oral, 2 times daily multivit-minerals/folic acid (MULTIVITAMIN GUMMIES ORAL) 1 tablet, oral, Daily NON FORMULARY 50 mcg, oral, Daily, Med Name: Prevagen 50 mcg pregabalin (LYRICA) 150 mg, oral, 3 times daily rosuvastatin (CRESTOR) 20 mg, oral, Daily SKYRIZI 150mg/1.66mL(75 mg/0.83 mL x2) syringe kit Indications: moderate to severe plaque psoriasis. tamsulosin (FLOMAX) 0.4 mg, oral, Daily ticagrelor (BRILINTA) 90 mg, oral, 2 times daily Allergies Allergen Reactions Cephalexin Itching Percocet [Oxycodone-Acetaminophen] Itching and Rash SOCHX@ SOCIALDETERMINANTS@ Exam There were no vitals taken for this visit. Mood/affect normal Neurological: Awake, alert, oriented x 3 CN intact Speech intact Cognition intact Motor: UE - Right 5/5 throughout; Left 5/5 deltoid, 4+/5 biceps, 4/5 triceps with breakaway, 4/5 manager basketball, 4/5interossei, 4-/5 thumb opposition LE - Bilareral 5/5 throughout Sensory: UE - Right intact to LT, sharp throughout; Left diminished to LT and sharp posterior arm, radial forearm, and hand. Some LT and sharp discrimination in digit 5, but diminished vs. Right. Notable atrophy of left tricep vs right Gait intact Station normal Coordination intact Reflexes: B 2+ patellar, brachioradialis, biceps, triceps, no clonus Review of films: Review of CT myelogram 05/15/2023 - degenerative disc disease throughout the cervical spine worst at C5-6, C6-7. There is both anterior and posterior osteophyte formation at these levels with some central canal stenosis worst at C5-6. Appreciation of left foraminal stenosis at C5-6 and C6-7, worse at C6-7. A/P: 47 y.o. male with degenerative disc disease and cervical spondylosis presenting with symptoms consistent with left C6 and C7 radiculopathy. These symptoms are consistent with the imaging findings on CT myelogram 05/15/23. -Offered C5-6, C6-7 arthroplasty - we will work to schedule. Discussed with patient the possibilitythat fusion will be required and he vocalized understanding -He will likely need cardiac clearance -Counseled patient on importance of quitting smoking, ideally prior to operation -Should hold blood thinners & aspirin apx 1 week prior to surgery Andree Freeman, MS4 * Eugene Patricia MD - 05/30/2023 10:30 AM EST Images from the original note were not included. In-person visit CC: Chief Complaint Patient presents with Follow-up manager inpatient/ep/lumbar now cervical/films pushed to [facility]/last seen 08/2019/mailed pkt HPI: Zeeshan Llanos is a 47 y.o. right handed male presenting with apx 10 months of neck pain and left arm pain. He is also having daily headaches that start at the base of the skull. He has numbness/tingling/pins and needles in digits 1-4 on the left and it has also started intermittently on the 5th digit. Pain is daily and constant in timing. Described as tension through the neck and shoulder, pain down the back of the arm/triceps and into the arm and hand. 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 No symptoms in the right arm. Endorses dropping things more than normal on the left>right. He hasn't noticed as much fine motor because he is right handed. Also endorsing some difficulty with balance - he is unsure if this is from the low back or neck. Thinks maybe he had some problems with this before onset of neck symptomslast August, but endorses it has worsened. He has not fallen down. Denies difficulty controlling bowel or bladder function. Taking aspirin - this does not help. Daily Meloxicam does help. He has not tried injections, PT, etc for his neck/arm. He has a SCS put in by Dr. Balderas - not MRI compatible. He is vocalizing a desire to maintain motion in his neck due to his hobbies of drag racing and bow hunting. ROS: As above Medical History Past Medical History: Diagnosis Date Arthritis Asthma Back pain Chronic pain disorder Dental disease broken teeth Diabetes mellitus [place] Diabetes mellitus type 2, controlled ([facility] GERD (gastroesophageal reflux disease) Hypertension Injury of back Low back pain Lumbar disc disease DC (myocardial infarction) [place] 2020 DC (myocardial infarction) ([facility] 02/24/2022 Neuropathy Psoriasis Visual impairment wears glasses Surgical History Past Surgical History: Procedure Laterality Date BLOCK MEDIAL BRANCH NERVE Bilateral 11/16/2016 Performed by Zeeshan Huerta MD at [facility] CORONARY ANGIOPLASTY WITH STENT PLACEMENT 2020 CORONARY ANGIOPLASTY WITH STENT PLACEMENT 02/24/2022 HERNIA REPAIR umbilical INJECTION BLOCK EPIDURAL CAUDAL STEROID N/A 01/12/2022 Performed by Zeeshan Huerta MD at [facility] INJECTION BLOCK NERVE MEDIAL BRANCH Bilat L 4/5, 5/1 Bilateral 11/16/2022 Performed by Zeeshan Huerta MD at [facility] INJECTION BLOCK NERVE MEDIAL BRANCH Bilat L 4/5,5/1 Bilateral 09/28/2022 Performed by Zeeshan Huerta MD at [facility] INJECTION BLOCK SACROILIAC JOINT Left 08/03/2022 Performed by Zeeshan Huerta MD at [facility] INJECTION MEDIAL BRANCH NERVE BLOCK Bilateral L 4/5, 5/1 Bilateral 01/09/2019 Performed by Zeeshan Huerta MD at [facility] INJECTION NERVE BLOCK Right Sciatic Right 04/17/2019 Performed by Zeeshan Huerta MD at [facility] NERVE ROOT LEFT L5,1 Left 09/21/2016 Performed by Zeeshan Huerta MD at [facility] SI JOINT Bilateral SI Joint Bilateral 02/06/2019 Performed by Zeeshan Huerta MD at [facility] INJECTION SI JOINT Bilateral SI Joint Bilateral 12/12/2018 Performed by Zeeshan Huerta MD at [facility] INJECTION STEROID EPI 1 WITH SEDATION Right L 5, 1 NR Right 05/01/2019 Performed by Zeeshan Huerta MD at [facility] INJECTION STEROID EPI 1 WITH SEDATION: L45 parmjit x 1 N/A 12/17/2016 Performed by Zeeshan Huerta MD at [facility] INSERTION TRIAL STIMULATOR SPINAL CORD N/A 03/01/2017 Performed by Zeeshan Huerta MD at [facility] Lumbar L4/5 ESIx1 N/A 11/23/2016 Performed by Zeeshan Huerta MD at [facility] MICRO LUMBAR DISCECTOMY L5-S1 RIGHT Right 07/21/2019 Performed by Eugene Patricia MD at [facility] RADIO FREQUENCY ABLATION L2/3,3/4 Left 08/10/2016 Performed by Zeeshan Huerta MD at [facility] RADIO FREQUENCY ABLATION L2/3,3/4 Right 07/27/2016 Performed by Zeeshan Huerta MD at [facility] RADIOFREQUENCY ABLATION SPINAL Left L 4/5, 5/ Left 03/01/2023 Performed by Zeeshan Huerta MD at [facility] RADIOFREQUENCY ABLATION SPINAL right L 4/5, 5/ Right 03/29/2023 Performed by Zeeshan Huerta MD at [facility] SPINAL CORD STIMULATOR IMPLANT Bilateral 05/21/2017 SPINE SURGERY L5/S1 discectomy Current Outpatient Medications Medication Instructions albuterol (PROVENTIL HFA;VENTOLIN HFA) 90 mcg/actuation inhaler 2 puffs, inhalation, Every 4 hours PRN albuterol (VENTOLIN HFA) 90 mcg/actuation inhaler See Instructions, Instructions: inhale 2 puffs bymouth and INTO THE LUNGS every 4 to 6 hours if needed, # 36 gm, 5 Refill(s), Pharmacy: [facility] #[id number], inhale 2 puffs by mouth and INTO THE LUNGS every 4 to 6 hours if needed amitriptyline (ELAVIL) 50 mg, oral, Nightly apremilast (OTEZLA) 30 mg, oral, 2 times daily aspirin 81 mg, oral, Daily uzysznmpdi-rsqjpqwh-oedpgloygk (BREZTRI AEROSPHERE) 160-9-4.8 mcg/actuation HFA aerosol inhaler 2 puffs, inhalation, 2 times daily carisoprodoL (SOMA) 350 mg, oral, 2 times daily dapagliflozin propanediol (FARXIGA) 10 mg, oral, Daily DEXILANT 60 mg, oral, Daily hydroCHLOROthiazide (HYDRODIURIL) 25 mg, oral, Daily HYDROcodone-acetaminophen (NORCO) 5-325 mg per tablet 1 tablet, Every 4 hours PRN insulin glargine U-300 conc (TOUJEO MAX U-300 SOLOSTAR) 300 unit/mL (3 mL) insulin pen 25 Unit, subcutaneous, Daily before evening meal INVOKANA 300 mg, oral, Daily lisinopriL (PRINIVIL,ZESTRIL) 2.5 mg, oral, Daily meloxicam (MOBIC) 15 mg, oral, 2 times daily metFORMIN (GLUCOPHAGE) 500 mg, oral, 2 times daily with meals metoprolol tartrate (LOPRESSOR) 25 mg, oral, 2 times daily multivit-minerals/folic acid (MULTIVITAMIN GUMMIES ORAL) 1 tablet, oral, Daily NON FORMULARY 50 mcg, oral, Daily, Med Name: Prevagen 50 mcg pregabalin (LYRICA) 150 mg, oral, 3 times daily rosuvastatin (CRESTOR) 20 mg, oral, Daily SKYRIZI 150mg/1.66mL(75 mg/0.83 mL x2) syringe kit Indications: moderate to severe plaque psoriasis. tamsulosin (FLOMAX) 0.4 mg, oral, Daily ticagrelor (BRILINTA) 90 mg, oral, 2 times daily Allergies Allergen Reactions Cephalexin Itching Percocet [Oxycodone-Acetaminophen] Itching and Rash SOCHX@ SOCIALDETERMINANTS@ Exam There were no vitals taken for this visit. Mood/affect normal Neurological: Awake, alert, oriented x 3 CN intact Speech intact Cognition intact Motor: UE - Right 5/5 throughout; Left 5/5 deltoid, 4+/5 biceps, 4/5 triceps with breakaway, 4/5 manager basketball, 4/5interossei, 4-/5 thumb opposition LE - Bilareral 5/5 throughout Sensory: UE - Right intact to LT, sharp throughout; Left diminished to LT and sharp posterior arm, radial forearm, and hand. Some LT and sharp discrimination in digit 5, but diminished vs. Right. Notable atrophy of left tricep vs right Gait intact Station normal Coordination intact Reflexes: B 2+ patellar, brachioradialis, biceps, triceps, no clonus Review of films: Review of CT myelogram 05/15/2023 - degenerative disc disease throughout the cervical spine worst at C5-6, C6-7. There is both anterior and posterior osteophyte formation at these levels with some central canal stenosis worst at C5-6. Appreciation of left foraminal stenosis at C5-6 and C6-7, worse at C6-7. A/P: 47 y.o. male with degenerative disc disease and cervical spondylosis presenting with symptoms consistent with left C6 and C7 radiculopathy. These symptoms are consistent with the imaging findings on CT myelogram 05/15/23. -Offered C5-6, C6-7 arthroplasty - we will work to schedule. Discussed with patient the possibilitythat fusion will be required and he vocalized understanding -He will likely need cardiac clearance -Counseled patient on importance of quitting smoking, ideally prior to operation -Should hold blood thinners & aspirin apx 1 week prior to surgery Andree Freeman, MS4 Attending addendum; Patient was seen and examined with Kacie Freeman MS4. Patient is well known to me from prior lumbar spine surgery. He has pain and weakness in the left arm - particularly in the tricep and c7 distribution. He has imaging (CT) showing the NF on the left side (in particular) are narrowed at c5-6 and c6-7 (worse at c6-7). He continues to have weakness in the left arm - particularly in the tricep - but also some in the manager basketball. His right arm is overall pretty good. He is not really falling or stumbling that much more. His imaging was reviewed and itnerpreted for him during the clinic visit. After my interpretation of his films he seemed to understand the tightness for the nerves as they exit the cervical spine in his lower c-spine. His post-myelogram CT shows left c5-6 and more severe left c6-7 foraminal stenosis and spondylosis at both levels. I offered him surgery for decompression at c5-6 and c6-7 -= this could be accomplished posteriorly via lamino-foraminotomyat each level or anteriorly via ACF (anterior cervical discectomy and fusion)or total disc replacement/cervcial arthroplasty at each level. We reviewed the potential risks and benefits of each case and I recommend two level cervical arthroplasty - he would like to proceed. Hewill speak with my roof tile layer Comfort to start the process of getting the operation scheduled. He voiced understanding of the potential risks and benefits and wishes to proceed. EUGENE PATRICIA MD Surgical plan is c5-6 and c6-7 arthroplasty ([employer] implant) documented in this encounterMem[facility] HospitalZestFinance [id number] Instructions* Patient Instructions* Shiela Hammonds CMA - 05/30/2023 10:30 AM EST Patient was seen today by Dr. Carter Patricia offered patient surgery. Patient will schedule surgery with Dr. Patricia's roof tile layer Comfort snowden documented in this encounterWhite Hospital02-20-2024 Miscellaneous Notes* Telephone Encounter - Michelle Francisco - 05/14/2023 9:48 AM EST Returned patient's call. No answer, left message on machine to call back. documented in this encounterWhite Hospital02-20-2024 Telephone encounter Note* Telephone Encounter - Michelle Maryam - 05/14/2023 9:48 AM EST Returned patient's call. No answer, left message on machine to call back. [facility]. Et scanned. C/O headache 10/01. Headache prior to procedure 09/01[facility] 05-01[facility] History of Present illness Narrative* Edy Mansfield PA-C - 05/01/2023 3:00 PM EST [facility] [address] [place] [address] Patient: Zeeshan Llanos Sex: male : 1975 Age: 47 y.o. PCP: CRYSTAL CARMONA MD 05/01/2023 Zeeshan Llanos is here for a(n) post procedure follow up 03/01/2023 Left L4/5, 5/1 Radio Frequency Ablation with 50% relief and 03/29/2023 Right L4/5, 5/1 RAdio Frequency Ablation with 50% relief both continuing. Pre-procedural pain was reported as /10. Chief Complaint Patient presents with Back Pain HPI: PT/HEP @2018 12/24/2021 caudal with 60% relief and much improved physical functioning 08/03/2022 Left SI joint inj with 60% relief 09/28/2022 Bilat L 4/5 5/1 MBB with 80% relief for one week 11/16/22 Alexis L4/5, 5/1 MBB 80% for 1-2 days, now back to baseling 03/01/2023 Left L4/5, 5/1 RFA with 50% relief 03/29/2023 Right L4/5, 5/1 RFA with 50% relief Back Pain This is a chronic problem. The current episode started more than 1 year ago. The problem occurs constantly. The problem has been gradually improving since onset. The pain is present in the lumbar spine, gluteal and sacro-iliac (Left glute and lateral thigh). The quality of the pain is described as aching. The pain radiates to the left thigh (left glute and lateral thigh). The pain is at a severity of 3/10. The pain is moderate. The pain is Worse during the day (worse towards the evening). The symptoms are aggravated by bending, sitting, standing and twisting. Stiffness is present In the morning. Associated symptoms include leg pain (left lateral thigh). Pertinent negatives include no abdominal pain, bladder incontinence, bowel incontinence, chest pain, fever, numbness, tingling or weakness. He has tried NSAIDs, muscle relaxant, walking, home exercises and analgesics (hx of injections inthe past w/ sig relief ) for the symptoms. The treatment provided moderate (09/28/2022 Bilat L 4/5 5/1 MBB with 80% relief for one week) relief. The effect of pain on patient's ADLS: Moderate Impairment. Past Medical History: Diagnosis Date Arthritis Asthma Back pain Chronic pain disorder Dental disease broken teeth Diabetes mellitus [place] Diabetes mellitus type 2, controlled ([facility] GERD (gastroesophageal reflux disease) Hypertension Injury of back Low back pain Lumbar disc disease DC (myocardial infarction) ([facility] 2020 DC (myocardial infarction) ([facility] 02/24/2022 Neuropathy Psoriasis Visual impairment wears glasses Past Surgical History: Procedure Laterality Date BLOCK MEDIAL BRANCH NERVE Bilateral 11/16/2016 Performed by Zeeshan Huerta MD at [facility] CORONARY ANGIOPLASTY WITH STENT PLACEMENT 2020 CORONARY ANGIOPLASTY WITH STENT PLACEMENT 02/24/2022 HERNIA REPAIR umbilical INJECTION BLOCK EPIDURAL CAUDAL STEROID N/A 01/12/2022 Performed by Zeeshan Huerta MD at [facility] INJECTION BLOCK NERVE MEDIAL BRANCH Bilat L 4/5, 5/1 Bilateral 11/16/2022 Performed by Zeeshan Huerta MD at [facility] INJECTION BLOCK NERVE MEDIAL BRANCH Bilat L 4/5,5/1 Bilateral 09/28/2022 Performed by Zeeshan Huerta MD at [facility] INJECTION BLOCK SACROILIAC JOINT Left 08/03/2022 Performed by Zeeshan Huerta MD at [facility] MEDIAL BRANCH NERVE BLOCK Bilateral L 4/5, 5/1 Bilateral 01/09/2019 Performed by Zeeshan Huerta MD at [facility] NERVE BLOCK Right Sciatic Right 04/17/2019 Performed by Zeeshan Huerta MD at [facility] NERVE ROOT LEFT L5,1 Left 09/21/2016 Performed by Zeeshan Huerta MD at [facility] SI JOINT Bilateral SI Joint Bilateral 02/06/2019 Performed by Zeeshan Huerta MD at [facility] SI JOINT Bilateral SI Joint Bilateral 12/12/2018 Performed by Zeeshan Huerta MD at [facility] INJECTION STEROID EPI 1 WITH SEDATION Right L 5, 1 NR Right 05/01/2019 Performed by Zeeshan Huerta MD at [facility] INJECTION STEROID EPI 1 WITH SEDATION: L45 parmjit x 1 N/A 12/17/2016 Performed by Zeeshan Huerta MD at [facility] INSERTION TRIAL STIMULATOR SPINAL CORD N/A 03/01/2017 Performed by Zeeshan Huerta MD at [facility] Lumbar L4/5 ESIx1 N/A 11/23/2016 Performed by Zeeshan Huerta MD at [facility] MICRO LUMBAR DISCECTOMY L5-S1 RIGHT Right 07/21/2019 Performed by Eugene Patricia MD at [facility] RADIO FREQUENCY ABLATION L2/3,3/4 Left 08/10/2016 Performed by Zeeshan Huerta MD at [facility] RADIO FREQUENCY ABLATION L2/3,3/4 Right 07/27/2016 Performed by Zeeshan Huerta MD at [facility] RADIOFREQUENCY ABLATION SPINAL Left L 4/5, 5/1 Left 03/01/2023 Performed by Zeeshan Huerta MD at [facility] RADIOFREQUENCY ABLATION SPINAL right L 4/5, 5/1 Right 03/29/2023 Performed by Zeeshan Huerta MD at [facility] SPINAL CORD STIMULATOR IMPLANT Bilateral 05/21/2017 SPINE SURGERY L5/S1 discectomy Allergies Allergen Reactions Cephalexin Itching Percocet [Oxycodone-Acetaminophen] Itching and Rash Family History Problem Relation Age of Onset Seizures Mother Hypertension Father Heart disease Father Cancer Father Diabetes Father Back Problems Father Pancreatitis Father Neck Problems Father Anesthesia problems Neg Hx Social History Socioeconomic History Marital status: Spouse name: Not on file Number of children: Not on file Years of education: Not on file Highest education level: Not on file Occupational History Not on file Tobacco Use Smoking status: Every Day Packs/day: 1.5 Types: Cigarettes Start date: 07/15/1992 Smokeless tobacco: Former Types: Chew Quit date: 07/15/2018 Vaping Use Vaping Use: Never used Substance and Sexual Activity Alcohol use: No Drug use: No Sexual activity: Defer Other Topics Concern Not on file Social History Narrative Not on file Social Determinants of Health Financial Resource Strain: Not on file Food Insecurity: No Food Insecurity (05/01/2023) Hunger Screening Food Insecurity - Worry: Never True Food Insecurity - Inability: Never True Transportation Needs: Not on file Physical Activity: Not on file Stress: Not on file Social Connections: Not on file Interpersonal Safety: Not on file Housing Instability: Not on file Review of Systems Constitutional: Negative for fever. HENT: Negative. Eyes: Negative. Respiratory: Negative. Cardiovascular: Negative for chest pain. Gastrointestinal: Negative for abdominal pain and bowel incontinence. Endocrine: Negative. Genitourinary: Negative. Negative for bladder incontinence. Musculoskeletal: Positive for back pain. Skin: Negative. Neurological: Negative for tingling, weakness and numbness. Psychiatric/Behavioral: Negative. Vital Signs: BP 111/72 (BP Site: Left Arm, BP Postition: Sitting) Pulse 74 Resp 18 Ht 182.9 cm (6') Wt 93.4 kg (206 lb) SpO2 97% BMI 27.94 kg/m Physical Exam: GENERAL - Healthy patient that appears stated age. HEENT - Normocephalic / Atraumatic, Extraoccular movements intact, trachea midline, thyroid within normal limits. CV - pulse regular, Warm extremities with appropriate color of nailbeds. RESP - No obvious wheezing, No Shortness of Breath, No overexertion response to exam maneuvers. COORDINATION - remains intact. PSYCH - Alert and Oriented x4, Attentive and appropriate, constitutionally normal, displays normal mood and affect per situation, answered questions appropriately during examination, demonstrated appropriate attention during discussion, demonstrated appropriate cognitive reasoning and understandingof the medical condition by asking appropriate questions regarding the diagnosis and risks/benefits/alternatives of treatment modalities. No obvious deficits in memory, reasoning, or intellect. Lumbar: SKIN - No rashes or bruising in the area of the patient s pain. LYMPH NODES - demonstrate no obvious enlargement. EXTREMITIES - Lower extremities are warm, with minimal edema and palpable pulses. Improved tenderness to palpation noted in the lumbar spine and paraspinal musculature. Pain is elicited with flexion, extension, and lateral rotation of the lumbar spine. Range of motion is diminished with these motions due to pain. Facet palpation is noted to be painful and facet loading maneuverselicit pain that is concordant with the patient s normal pain complaints. Some muscle spasm is noted in the overlying musculature. STRENGTH - noted to be 5 out of 5 all muscle groups bilateral lower extremities including muscles involving hip flexion and abduction, knee flexion and extension, as well as foot dorsiflexion and plantarflexion. No notable atrophy, fasciculations or spasm. SENSORY - No notable sensory deficits in the bilateral lower extremities to touch or pinprick in all dermatomal distributions. Straight Leg Raise is negative bilaterally. Gait is normal. Assessment/Treatment Plan: Zeeshan was seen today for back pain. Diagnoses and all orders for this visit: Lumbar spondylosis Continue Lyrica 150 mg TID Monitor Follow up 3 months The medications I have prescribed have been reviewed for medication interactions/contraindications and/or for upcoming procedures: continue current medication regimen without any changes. DISCUSSION: Treatment options discussed with patient and all questions answered to patient's satisfaction. Discussed the rules and regulations surrounding prescription of opioids and compliance at length. Failure to follow the rules and regulation will result in tapering and discontinuation of medications if applicable.The patient has been instructed as to the type of medication prescribed along with directions for use. Potential side effects have been discussed, along with risks and benefits of taking this medication. (S)he was instructed as to what to do if (s)he experiences side effects, including when to discontinue the medication. (S)he was advised to call this office in this event. Also discussed at length safety and security of RX and medications. Due to the high risk nature of this patient's pain medication regimen, frequent office visit refill appointments (every 1-3 months) are medically necessary to monitor for an addiction disorder. Prescribed medication that requires intensive monitoring for toxicity Lyrica. OARRS was reviewed, discussed and appropriate for medications prescribed. It does appear that the patient benefited from the previous injection and the benefit has continuedthrough this visit. At this time, we will monitor the patient s symptoms from an interventional standpoint and consider another injection in the future if the patient s symptoms return or intensify severely. The patient was made aware that they should call if symptoms worsen or if their pain beginsto have a negative impact on their quality of life and activities of daily living again. The spine model was demonstrated and MRI was reviewed and used to explain the condition. Chronic conditions not treated during this visit that affected my overall medical decision making: Obesity and Diabetes OARRS: Reviewed. Scribe Statement: Scribed for and in the presence of EDY MANSFIELD PA-C by Luba Harris CNA. Provider Statement: I, EDY MANSFIELD PA-C, personally performed the services described in the documentation, as scribed by Luba Harris CNA in my presence, and it is both accurate and complete. Luba Harris CNA 05/01/23 1520 Edy Mansfield PA-C 05/01/23 1521 documented [facility]24 NoteIn person visit Chief complaint: neck and left arm problem ENTERPRISE: 47 yo male - Having neck and left arm problems He had prior back surgeryeis - I did the last one - was a microdiscectomy He has een having an issue in hisneck/arm - he said he had some x-rays in 2019 It has been more problematic since August 2022 His left fingers get numb Mostly 2-4 Some in the thumb and more recently also some in the 5th gringer The right arm is OK No prior neck surgery They did a xray of his c-spine His x-rays were at [facility] He has a [employer] SCS He says that his insurance won't pay to get the battery pack chencekd - supposedly they have a new battery that would potentially be MRI compatible He thinks the battery might need to be changed within about the next year anyway He has had the SCS for about 8 or 9 years He said that his doctor told him c4-7 looked bad from the x-ray ROS: As above Past Medical History: Diagnosis Date BPH (benign prostatic hyperplasia) CAD (coronary artery disease) DDD (degenerative disc disease), lumbar Diabetes mellitus (CMS/HCC) GERD (gastroesophageal reflux disease) Hyperlipidemia Hypertension Spondylosis Past Surgical History: Procedure Laterality Date EPIDURAL BLOCK INJECTION INJECTION BLOCK SACROILIAC JOINT Current Outpatient Medications on File Prior to Visit Medication Sig Dispense Refill albuterol 90 mcg/actuation inhaler Inhale 1 puff every 4 (four) hours if needed. apremilast (Otezla) 30 mg tablet Take 30 mg by mouth twice a day. aspirin 81 mg chewable tablet Chew 81 mg in the morning. xgkiwdnbxv-vuekybec-rxgyjfaxoy (Breztri Aerosphere) 160-9-4.8 mcg/actuation HFA aerosol inhaler Inhale 2 puffs twice a day. carisoprodol (Soma) 350 mg tablet Take 350 mg by mouth if needed in the morning and at bedtime. dapagliflozin propanediol (Farxiga) 10 mg Take 10 mg by mouth in the morning. Droplet Pen Needle 31 gauge x 5/16 needle use 1 PEN NEEDLE to inject MEDICATION once daily fluticasone propion-salmeteroL (Advair Diskus) 250-50 mcg/dose diskus inhaler Inhale 1 puff. glimepiride (Amaryl) 1 mg tablet 1 mg. hydroCHLOROthiazide (HYDRODiuril) 25 mg tablet Take 25 mg by mouth in the morning. HYDROcodone-acetaminophen ([place]) 5-325 mg tablet Take 1 tablet by mouth every 6 (six) hours if needed. lisinopril 2.5 mg tablet 1 tab(s), Oral, Daily, # 30 tab(s), 5 Refill(s), Pharmacy: [facility] #[id number], take 1 tablet by mouth once daily, 185.42, cm, 02/25/23 15:58:00 EST, Height, 92.08, kg, 02/25/23 16:09:00 EST, Weight Dosing meloxicam (Mobic) 15 mg tablet Take 15 mg by mouth twice a day. metFORMIN (Glucophage) 500 mg tablet Take 500 mg by mouth. metoprolol tartrate (Lopressor) 25 mg tablet Take 25 mg by mouth twice a day. nicotine (Nicoderm CQ) 21 mg/24 hr patch apply 1 patch once daily as directed nitroglycerin (Nitrostat) 0.[address] 0.4 mg under the tongue. pantoprazole (ProtoNix) 40 mg EC tablet Take 40 mg by mouth in the morning and at bedtime. pregabalin (Lyrica) 150 mg capsule Take 150 mg by mouth twice a day. rosuvastatin (Crestor) 20 mg tablet Take 20 mg by mouth in the morning. Stiolto Respimat 2.5-2.5 mcg/actuation mist inhaler INHALE 2 PUFFS BY MOUTH EVERY 24 HOURS tamsulosin (Flomax) 0.4 mg 24 hr capsule Take 0.4 mg by mouth in the morning. ticagrelor (Brilinta) 90 mg tablet Take 90 mg by mouth twice a day. True Metrix Glucose Test Strip strip use 1 TEST STRIP to TEST BLOOD SUGAR two to three times a day TRUEplus Lancets 30 gauge misc No current facility-administered medications on file prior to visit. No Known Allergies Exam; BP 106/80 Pulse 86 Resp 20 Ht 1.854 m (6' 1 ) Wt 91.6 kg (202 lb) SpO2 97% BMI 26.65 kg/m??? Age appropriate yes family present NC/AT Well developed, well nourished Mood/affect normal Awake, alert, oriented CN intact Speech intact Cognition intact He sits leaning to the right He is trying to tip his head to the right - potentially to open the neural foramina on the left side Ambulatory Station intact Coordination intact Reflexes: - decreased He has loss of muscle bulk in the left arm - bicep and trciep - tricep more Has weakness in his left manager basketball 4-/5 Bicep is 4/5 and tricep is 4-/5 Deltoid is 4+/5 Sensory as above - decreased in the thumb, index and middle finger - left side Review of films; He had plain x-rays done in [place] - I don't have those images to review He has not had MRI (reportedly cannot have MRI with his current SCS system) and has also not had a myelogram with post-myelogram CT scan A/P: 47 y/o male - has left arm pain, sensory change and weakness - with loss of muscle bulk in the left arm - especially in the tricep. His symptoms would fit primarily with pathology at the c6 and even more c7 neural foramina on the left side - or possibly canal stenosis at or just above the expected levels. He needs im (more content not included)...[facility] 04-24-2023 History of Present illness Narrative* Zeeshan Wilhelm, DO - 04/24/2023 10:30 AM EST Subjective Zeeshan Llanos is a 47 y.o. male Chief Complaint Follow-up 47-year-old gentleman returns for annual follow-up he is doing well he has no cardiovascular events, angina, nitrate usage or hospitalizations He is on his way to [place] to see neurosurgeon for possible consideration for cervical neck intervention. His last coronary intervention was February 2022, He is stable status post inferior DC in 2020 withprimary revascularization of the RCA, subsequent ACS event in February 2022 with revascularization of the circumflex (RCA stent was widely patent) with mild LV dysfunction. His NYHA classification is class IIc He has underlying diabetes, hyperlipidemia, ongoing tobacco use and is maintaining compliance with his medical therapies without symptoms, without angina or nitrate usage or hospitalizations or heartfailure With counseling for 3 to 5 minutes today on smoking cessation, last A1c is 7.3%. It has been a yearsince his last intervention he can stop Brilinta altogether and continue with aspirin, if in fact he needs cervical disc or cervical laminectomy surgery he is clear from a cardiovascular standpoint, will otherwise follow-up with appropriate lipid panel high-sensitivity CRP and see him again in 1 year with the above-mentioned smoking cessation counseling. Review of Systems All other systems reviewed and are negative. Visit Vitals BP 100/70 (BP Location: Right arm, Patient Position: Sitting) Pulse 76 Ht 1.854 m (6' 1 ) Wt 91.6 kg (202 lb) BMI 26.65 kg/m Smoking Status Every Day BSA 2.17 m Objective Physical Exam Constitutional: Appearance: Normal appearance. He is normal weight. HENT: Nose: Nose normal. Neck: Vascular: No carotid bruit. Cardiovascular: Rate and Rhythm: Normal rate. Pulses: Normal pulses. Heart sounds: Normal heart sounds. Pulmonary: Effort: Pulmonary effort is normal. Abdominal: General: Bowel sounds are normal. Palpations: Abdomen is soft. Genitourinary: Rectum: Normal. Musculoskeletal: General: Normal range of motion. Cervical back: Normal range of motion. Right lower leg: No edema. Left lower leg: No edema. Skin: General: Skin is warm and dry. Neurological: General: No focal deficit present. Mental Status: He is alert. Psychiatric: Mood and Affect: Mood normal. Behavior: Behavior normal. Thought Content: Thought content normal. Judgment: Judgment normal. Current Medications Current Outpatient Medications: albuterol 90 mcg/actuation inhaler, Inhale 1 puff every 4 hours if needed., Disp: , Rfl: aspirin 81 mg chewable tablet, Chew 1 tablet (81 mg) once daily., Disp: , Rfl: kohcccyxsx-tuslobvm-horzrciwcj (Breztri Aerosphere) 160-9-4.8 mcg/actuation HFA aerosol inhaler, Inhale 2 puffs 2 times a day., Disp: , Rfl: carisoprodol (Soma) 350 mg tablet, Take 1 tablet (350 mg) by mouth 2 times a day as needed for muscle spasms., Disp: , Rfl: dapagliflozin propanediol (Farxiga) 10 mg, Take 1 tablet (10 mg) by mouth once daily., Disp: , Rfl: dexlansoprazole (Dexilant) [address] capsule, Take 1 capsule (60 mg) by mouth once daily., Disp: , Rfl: finasteride (Proscar) 5 mg tablet, Take 1 tablet (5 mg) by mouth once daily., Disp: , Rfl: hydroCHLOROthiazide (HYDRODiuril) 25 mg tablet, Take 1 tablet (25 mg) by mouth once daily., Disp: ,Rfl: HYDROcodone-acetaminophen ([place]) 5-325 mg tablet, Take 1 tablet by mouth every 6 hours if needed.,Disp: , Rfl: insulin glargine (Toujeo Max U-300 SoloStar) 300 unit/mL (3 mL) injection, Inject under the skin see administration instructions. Take as directed per insulin instructions., Disp: , Rfl: lisinopril 2.5 mg tablet, Take 1 tablet (2.5 mg) by mouth once daily., Disp: , Rfl: metFORMIN XR 500 mg 24 hr tablet, Take 1 tablet (500 mg) by mouth 2 times a day., Disp: , Rfl: metoprolol tartrate (Lopressor) 25 mg tablet, Take 1 tablet (25 mg) by mouth 2 times a day., Disp: , Rfl: nitroglycerin (Nitrostat) 0.4 mg SL tablet, Place 1 tablet (0.4 mg) under the tongue every 5 minutes if needed for chest pain., Disp: , Rfl: pregabalin (Lyrica) 150 mg capsule, Take 1 capsule (150 mg) by mouth 2 times a day., Disp: , Rfl: rosuvastatin (Crestor) 20 mg tablet, Take 1 tablet (20 mg) by mouth once daily., Disp: , Rfl: tamsulosin (Flomax) 0.4 mg 24 hr capsule, Take 1 capsule (0.4 mg) by mouth once daily., Disp: , Rfl: Assessment/Plan 1. Coronary artery disease, unspecified vessel or lesion type, unspecified whether angina present, unspecified whether mcgrath or transplanted heart 2. History of PTCA 3. Myocardial infarction, unspecified DC type, unspecified artery ([facility]) 4. Hypertension, unspecified type 5. Hyperlipidemia, unspecified hyperlipidemia type 6. Other specified diabetes mellitus without complication, with long-term current use of insulin ([facility]) 7. Current smoker 8. Preop examination Scribe Attestation By signing my name below, I, Valerie Bardales LPN , Scribe attest that this documentation has been prepared under the direction and in the presence of Ananya Wilhelm DO. documented in this encounterUnKettering [facility] Work Phone: [phone]) 334-268901-31-2024 Instructions* Patient Instructions* Valerie Wylie LPN - 04/24/2023 10:30 AM EST Please bring all medicines, vitamins, and herbal supplements with you when you come to the office. Prescriptions will not be filled unless you are compliant with your follow up appointments or have a follow up appointment scheduled as per instruction of your physician. Refills should be requested at the time of your visit. Zeeshan Llanos is clear for surgery from a cardiac standpoint documented in this encounterUniversity Hospitals of Sharpe Work Phone: [phone] 126-946712-28-2023 Miscellaneous Notes* Telephone Encounter - Melany Wilson RN - 03/21/2023 10:11 AM EST Called pt to remind him that last dose of brillinta will be 12/30 and can resume after procedure on03/29/23 (5 day hold). PVU and will inform his . documented in this encounterWashington [facility]Fl[facility]at[facility]12-28-2023 Telephone encounter Note* Telephone Encounter - Melany Wilson RN - 03/21/2023 10:11 AM EST Called pt to remind him that last dose of brillinta will be 12/30 and can resume after procedure on03/29/23 (5 day hold). PVU and will inform his . [facility] Evaluation note* Encounter Date Diagnosis Assessment Notes Treatment Notes Treatment Clinical Notes Dec, Fever, unspecified fever cause ( ICD-10 - R50.9) Dec,Lower respiratory infection (ICD-10 - J22) Rapid influenza A/B test negative.Discussed diagnosis with patient in detail. Advised patient that cough may linger for 3 weeks. Will treat today with antibiotic. Reviewed allergies and recent antibiotic use. Advised to take medications as prescribed, reviewed side effects of steroid, take with food and plenty of water, finish entire course. Encouraged supportive care as directed, push fluids and rest, may use Tylenol as needed for fever/discomfort, cool mist humidifier. May use Tessalon Perles as needed for cough. Patient to follow up with PCP in 2-3 days. Immediate eval if SOB, difficulty breathing, chest pain, dizziness, or other concerning symptoms. Patient verbalizes understanding and is agreeable to treatment plan [place] Other 12-05-2022 Progress note Author Phillip Roth [facility] February 26, 2022 2:09pmNote Date/TimeDecember 2021 9:33[place] [address] Hospitalist Progress Note Signed Patient: Zeeshan Llanos MR#: [id number] : 1975 Acct:[id number] Age/Sex: 46 / M Adm Date: 2 Loc: Room: [address] [place] [address] Type: ADM IN Attending Dr: Phillip Roth MD Copies to: ~ Date of Service: 02/26/2022 Subjective Subjective Narrative: Mr. Llanos is a 46-year-old male transferred from [place] for suspicion of NSTEMI with increasingtroponins. He has a past medical history of coronary artery disease, acute NSTEMI in 2020 s/p PCI of RCA, diabetes. On hospital day 2, patient is awake and alert and comfortable in bed. He endorses resting very well, his headache has resolved, and denies chest pain, chest tightness, heart palpitations, or shortness of breath. He denies any dizziness, nausea, vomiting. Cardiology saw the patient yesterday and is p keenan on heart cath today at 9:30 AM. Patient has no additional concerns or complaints. Exam Physical Exam Vital Signs: Temp Pulse Resp BP Pulse Ox O2 Del Method 97.6 F 74 16 134/89 96 Room Air 02/26/22 08:00 02/26/22 08:52 02/26/22 08:52 02/26/22 08:52 02/26/22 08:52 02/26/22 08:52 Narrative: GENERAL: No apparent distress, alert, oriented, appears stated age, comfortable HEENT: NC/AT, EOMI, PERRL, conjunctiva clear, no adenopathy, no JVD CARDIOVASCULAR: Regular rate and regular rhythm, no murmurs, symmetric palpable pulses RESPIRATORY: nonlabored work of breathing on room air, clear to auscultation bilaterally, symmetricchest rise, no wheezes/rales/rhonchi ABDOMEN: Soft, non-tender, non-distended, normal bowel sounds BACK: Well-healed midline surgical scar. Extremities: Moving all extremities well. Without edema. SCDs at bedside but notin place. SKIN: Intact, no rash, no trauma NEURO: Cranial nerves grossly intact, no focal neurologic signs PSYCHIATRIC: Good eye contact, appropriate mood and affect, cooperative Objective Lab Results CBC & Chem 7: 02/26/22 05:09 02/26/22 07:21 Meds Allergies and Active Meds Allergies oxycodone [From Percocet] Allergy (Verified 11/02/21 20:23) Rash cephalexin [From Keflex] Adverse Reaction (Verified 11/02/21 20:23) pt states it made infection worse/dr told him it was keflx Active Meds: Active Medications Generic Name Dose Route Start Last Admin Trade Name Freq PRN Reason Stop Dose Admin Hydrocodone Bitart/Acetaminophen 1 tab 02/25/22 11:19 Hydrocodone/Acetaminophen 5-325 Mg Tablet PO Q4H PRN Pain Albuterol 2 puff 02/25/22 11:19 Albuterol Hfa 60 Puff/8 Gram Inhaler INHALATION 02/25/23 11:18 Q4H PRN Shortness Of Breath Or Wheezing Albuterol/Ipratropium 3 ml 02/26/22 08:00 Ipratropium/Albuterol 0.5-3 Mg 3 Ml Ampul.Neb INHALATION 02/26/23 07:59 QID.RESP MAGDY Amitriptyline HCl 50 mg 02/25/22 22:00 02/25/22 21:09 Amitriptyline 50 Mg Tablet PO 02/25/23 21:59 50 mg HS MAGDY Administration Aspirin 81 mg 02/25/22 16:09 02/26/22 08:24 Aspirin 81 Mg Tab.Chew PO 02/25/23 16:08 81 mg DAILY MAGDY Administration Atorvastatin Calcium 30 mg 02/25/22 21:00 02/25/22 21:08 Atorvastatin 10 Mg Tablet PO 02/25/23 20:59 30 mg QPM MAGDY Administration Calcium Carbonate 1,000 mg 02/25/22 12:08 02/25/22 12:40 Calcium Carbonate 500 Mg Tab.Chew PO 02/25/23 12:07 1,000 mg Q4H PRN Administration Dyspepsia Canagliflozin 300 mg 02/25/22 16:09 02/26/22 08:21 Canagliflozin 300 Mg Tablet PO 02/25/23 16:08 300 mg DAILY MAGDY Administration Dextrose 0 gm 02/25/22 12:07 Dextrose 20 % In Water 10 Gm/50 Ml Syringe IV-PUSH 02/25/23 12:06 PRN PRN Hypoglycemia Docusate Sodium 200 mg 02/25/22 11:15 Docusate 100 Mg Capsule PO 02/25/23 11:14 BID PRN Constipation Finasteride 5 mg 02/25/22 16:10 02/26/22 08:22 Finasteride 5 Mg Tablet PO 02/25/23 16:09 5 mg DAILY MAGDY Administration Fluticasone Propionate 1 puff 02/26/22 09:00 Fluticasone Propionate 110 120 Puff/12 Gm Inhaler INHALATION 02/26/23 08:59 BID MAGDY Glucose 0 gm 02/25/22 12:07 Dextrose 40% Gel 15 Gm Tube PO 02/25/23 12:06 PRN PRN Hypoglycemia Home Med 1 each 02/25/22 18:44 [facility] 02/25/23 18:43 PRN PRN zz.Pharmacy Note Hydralazine HCl 10 mg 02/25/22 11:15 Hydralazine 20 Mg/Ml Vial IV-PUSH 02/25/23 11:14 Q4H PRN if SBP > 185 Dextrose/Sodium Chloride 1,000 mls @ 100 mls/hr 02/26/22 09:00 02/26/22 09:00 5 % Dextrose-0.45 % Nacl IV 02/26/23 08:59 100 mls/hr .Q10H MAGDY Administration Insulin Aspart 0 units 02/25/22 12:30 02/26/22 08:24 Insulin Aspart 300 Units/3 Ml Insuln.Pen SUBCUT 02/25/23 12:29 Not Given TID.WM.HS MAGDY Protocol Lisinopril 2.5 mg 02/25/22 16:08 02/26/22 08:22 Lisinopril 2.5 Mg Tablet PO 02/25/23 16:07 2.5 mg DAILY MAGDY Administration Metoprolol Tartrate 25 mg 02/25/22 21:00 02/26/22 08:22 Metoprolol Tartrate 25 Mg Tablet PO 02/25/23 20:59 25 mg BID MAGDY Administration Nicotine 1 each 02/26/22 09:00 02/26/22 08:22 Nicotine Patch 21 Mg/24hr 1 Each Patch.Td24 TRANSDERML 04/08/22 09:01 1 each DAILY MAGDY Administration Pom Carisoprodol 350 350 mg 02/25/22 14:00 02/26/22 08:34 Mg Tablet PO 02/25/23 13:59 350 mg TID MAGDY Administration Omeprazole 40 mg 02/25/22 16:09 02/26/22 08:22 Omeprazole 20 Mg Capsule.Dr PO 02/25/23 16:08 40 mg DAILY MGADY Administration Potassium Chloride 40 meq 02/25/22 15:27 Potassium Chloride Er 20 Meq Tab.Er.Prt PO STAT PRN Hypokalemia Pregabalin 150 mg 02/25/22 21:00 02/26/22 08:21 Pregabalin 150 Mg Capsule PO 08/24/22 20:59 150 mg BID MAGDY Administration Sodium Chloride 0 ml 02/25/22 15:27 Sodium Chloride 0.9 % 10 Ml Syringe IV-PUSH 02/25/23 15:26 PRN PRN Flush Tamsulosin HCl 0.4 mg 02/25/22 16:08 02/26/22 08:22 Tamsulosin 0.4 Mg Cap.Er.24h PO 02/25/23 16:07 0.4 mg DAILY MAGDY Administration Ticagrelor 90 mg 02/25/22 21:00 02/26/22 08:21 Ticagrelor 90 Mg Tablet PO 02/25/23 20:59 90 mg BID MAGDY Administration A&P - Hospitalist Assessment/Plan (1) NSTEMI (non-ST elevated myocardial infarction): (2) Diabetes: (3) GERD (gastroesophageal reflux disease): Plan 1. Suspected NSTEMI.? Patient HEART score is 7.? NSTEMI last year requiring PCI of RCA.? Troponins continue to trend upwards once at our institution up to 595. -Okay repeated EKG here showed normal sinus without ischemic changes. Evidence of right ventricularconduction delay -Troponins decreased to 428 yesterday evening -Monitor need for supplemental oxygen. Currently comfortable on room air, sat 96% -Monitor need for pain control. Patient does not tolerate morphine due to headache. No current pain. -Defer to Cardiology for additional recommendations. Cardiac catheterization scheduled for this a.m. 2. Diabetes mellitus type II with hyperglycemia. Glucose >600 at [facility]. -Monitor glucose. 163 on a.m. labs -Home metformin and Trulicity -Add sliding scale, check hemoglobin A1c Hyperglycemia could be related due to recent steroid administration 3. GERD -Resume home dexlansoprazole Tums as needed 4. Current smoker -counseling provided. patient motivated to quit -Needs nicotine patch during admission 5.? Recent history of bronchitis, diagnosed by PCP, was started on Augmentin andsteroids DVT prophylaxis SCDs and got therapeutic dose of Lovenox Code status: full Documented By: Alyssa Cornejo MD, RES 02/26/22 0926 Signed By: <Electronically signed by RES Alyssa Cornejo> 02/26/22 1010 <Electronically signed by Phillip Roth MD> 02/26/22 1409 [facility] Work Phone: 1(145) 910-751312-05-2022 [facility]12[facility]2022 Consult note Author Ivanna Nova [facility] February 26, 2022 8:40amNote Date/TimeDecember 2021 3:[place] [address] Cardiology Consult Note Signed Patient: Zeeshan Llanos MR#: [id number] : 1975 Acct:[id number] Age/Sex: 46 / M Adm Date: 2 Loc: Room: [address] [place] [address] Type: ADM IN Attending Dr: Phillip Roth MD Copies to: MD Ivanna Garcia MD Rafik Massouh, MD~ Cardiology HPI History of Present Illness Consult Date: 02/25/22 Reason for Consult: Cardiac cardiac consultation requested for anginal pain HPI: Mr. Llanos is a 46 year old male known to our practice. He presented last yearwith acute inferior wall myocardial infarction and underwent PCI to the right coronary artery. Patient report over the last 48 hours has been having recurrent episode of anginal pain. He reported he had 1 episode startedat night 48 hours ago resolved with nitroglycerin. And later on during the day he developed recurrence of chest pain that also resolved with nitroglycerin but hispain kept coming and going and ultimately decided to go to [facility] where he was evaluated and noted to have borderline elevation of his troponin sohe was sent over here. He was placed on nitro patch with improvement of his chest pain. He describes his chest pain as pressure with radiation to both shoulders associated some mild shortness of breath classic for his anginal pain. Since his admission his cardiac enzymes were only elevated. His EKG showed no acute ST-T changes. Patient report compliance with his medication. He denies any drug use. He report that he quit smoking last year Review of Systems Review of Systems Review of systems: Patient reports symptoms of chest pain and angina as detailed above and reports some chronic back pain [facility] Medical History Arthritis Asthma Back pain Chest pain Current smoker 1-1 1/2 ppk/day Dental caries Diabetes Diabetes mellitus type 2 in nonobese Eczema Foreign body in eye GERD (gastroesophageal reflux disease) Hypertension Left eye pain Myocardial infarct Psoriasis Sacral nerve stimulator present Shortness of breath Surgical History H/O vasectomy History of back surgery x2 History of cardiac catheterization Family History Father Diabetes Heart disease Lung cancer Grandparent Diabetes Family/Other Diabetes Mother Seizures Social History Smoking Status: Current every day smoker Tobacco Type: cigarettes Substance Use Type: None Substance Abuse Comment: 30 Meds Medications and Allergies Allergies oxycodone [From Percocet] Allergy (Verified 11/02/21 20:23) Rash cephalexin [From Keflex] Adverse Reaction (Verified 11/02/21 20:23) pt states it made infection worse/dr told him it was keflx Home Medications albuterol sulfate 90 mcg/actuation aerosol inhaler (Ventolin HFA) 2 puff inhalation Q4-6H PRN Shortness Of Breath Or Wheezing 05/10/17 [History Confirmed 02/25/22] dulaglutide 1.5 mg/0.5 mL subcutaneous pen injector (Trulicity) 1.5 mg subcut QWEEK diabetes 05/10/17 [History Confirmed 02/25/22] metformin 500 mg tablet 500 mg PO BID diabetes 05/10/17 [History Confirmed 02/25/22] amitriptyline 50 mg tablet 50 mg PO HS 07/21/20 [History Confirmed 02/25/22] carisoprodol 350 mg tablet 350 mg PO TID 07/21/20 [History Confirmed 02/25/22] dexlansoprazole 60 mg capsule,biphase delayed release (Dexilant) 60 mg PO DAILY 07/21/20 [History Confirmed 02/25/22] hydrochlorothiazide 25 mg tablet 25 mg PO DAILY 07/21/20 [History Confirmed 02/25/22] meloxicam 15 mg tablet 15 mg PO DAILY 07/21/20 [History Confirmed 02/25/22] pregabalin 150 mg capsule 150 mg PO BID 07/21/20 [History Confirmed 02/25/22] aspirin 81 mg chewable tablet (Children's Aspirin) 81 mg PO DAILY #30 tabs 07/22/20 [Rx Confirmed 02/25/22] atorvastatin 10 mg tablet 30 mg PO QPM 30 days #90 tabs 07/22/20 [Rx Confirmed 02/25/22] lisinopril 2.5 mg tablet 2.5 mg PO DAILY 30 days #30 tabs 07/22/20 [Rx Confirmed 02/25/22] metoprolol tartrate 25 mg tablet 25 mg PO BID 30 days #60 tabs 07/22/20 [Rx Confirmed 02/25/22] dapagliflozin 10 mg tablet (Farxiga) 10 mg PO DAILY 11/02/21 [History Confirmed 02/25/22] finasteride 5 mg tablet 5 mg PO DAILY 11/02/21 [History Confirmed 02/25/22] hydrocodone 5 mg-acetaminophen 325 mg tablet 1 tab PO Q4-6H PRN Pain 11/02/21 [History Confirmed 02/25/22] tamsulosin 0.4 mg capsule 0.4 mg PO DAILY 11/02/21 [History Confirmed 02/25/22] amoxicillin 500 mg-potassium clavulanate 125 mg tablet See Rx Instructions .Route .COMPLEX 02/25/22[History Confirmed 02/25/22] budesonide 160 mcg-glycopyr 9 mcg-formot 4.8 mcg/actuation HFA inhaler (Breztri Aerosphere) See Rx Instructions .Route .COMPLEX 02/25/22 [History Confirmed 02/25/22] dexamethasone 4 mg tablet See Rx Instructions .Route .COMPLEX 02/25/22 [History Confirmed 02/25/22] Exam Physical Exam Vital Signs: Temp Pulse Resp BP Pulse Ox O2 Del Method 97.8 F 82 16 127/82 94 L Room Air 02/25/22 12:00 02/25/22 12:00 02/25/22 12:00 02/25/22 12:00 02/25/22 12:00 02/25/22 12:00 Const General: cooperative, comfortable, no acute distress and well developed HEENT Head: atraumatic Mouth: oral mucosae normal Eyes General: appearance normal, both eyes and all related structures Pupils: PERRL Neck Neck: normal visual inspection, supple and no lymphadenopathy noted Neck mass: No Thyroid: thyroid normal Carotids: normal carotid upstroke Chest Chest palpation & inspection: normal inspection of the chest Resp Effort & Inspection: normal respiratory effort Auscultation: clear to auscultation bilaterally Cardio Palpation: normal PMI Rate: regular rate Rhythm: regular rhythm Heart Sounds: S1 normal and S2 normal GI Palpation: soft and no hepatosplenomegaly Percussion: normal to percussion Auscultation: normal bowel sounds Skin General: no rashes or lesions noted and dry skin Neuro General: patient alert, patient awake, patient oriented x3, tone normal and moves all extremities Extrem General: full ROM, capillary refill normal and no clubbing, cyanosis or edema Psych Mental Status: mental status grossly normal Results Labs Lab results: Intake and Output 02/24/22 02/25/22 02/25/22 23:59 07:59 15:59 Other: Weight 93.4 kg Date of Last Bowel Movement 02/24/22 Patient Weight 02/25/22 23:59 Weight 93.4 kg EKG Interpretations EKG Attestation EKG: I reviewed this ECG and interpreted as documented below: (EKG showed normal sinus rhythm without acute ST-T change) A&P - Cardiology (1) Acute coronary syndrome: Assessment/Problem Details: Patient presenting with classic acute coronary syndrome. Responded to treatmentwith topical nitrate. Currently hemodynamic stable without chest pain. Cardiacenzymes positive. Code(s): I24.9 - Acute ischemic heart disease, unspecified (2) Hypertension: Code(s): I10 - Essential (primary) hypertension (3) Diabetes mellitus type 2 in nonobese: Code(s): E11.9 - Type 2 diabetes mellitus without complications (4) Single vessel coronary artery disease: Assessment/Problem Details: Patient with PCI to the right coronary artery last year Code(s): I25.10 - Atherosclerotic heart disease of mcgrath coronary artery without angina pectoris (5) Hyperlipidemia: Code(s): E78.5 - Hyperlipidemia, unspecified Plan 1. Continue home medication including dual antiplatelet therapy 2. We will give 1 dose of Lovenox 3. Based on his CYDNEY score, clinical presentation and known anatomy patient would benefit from invasive evaluation. Risk, benefit alternative reviewed withpatient at length he understood and agreed with the suggested plan Documented By: Ivanna Nova MD 02/25/22 1516 Signed By: <Electronically signed by MD Ivanna Nova> 02/26/22 0811 [facility] Work Phone: 1(242) 891-967312-04-2022 Hospital Discharge instructions Additional Instructions I may not have addressed or treated all of your medical illnesses or the abnormal blood work or imaging studies during this hospitalization. Please ask your primary care provider to obtain [facility] records entirely to follow up on all of the abnormal physical, laboratory, and imaging findings that I have not addressed. Please avoid smoking. Check your blood sugar 3 times a day before meals. Document these numbers on a blood glucose log and bring them with you to your follow-up appointment with your primary care doctor. Communicate with your primary care doctor or seed and fertilizer specialist if your blood sugar is under 100 or above 300 on 2 consecutive checks. Communicate with your primary care doctor or seed and fertilizer specialist if you have any questions about your diabetes medications. Signs of a low blood sugar include sweating, racing heart, dizziness and/or weakness. Check your blood sugar if you have any of the symptoms. Please return back to the emergency room or seek medical attention if your symptoms worsen or return. Discharging you from [facility] does not mean that your medical care ends here and now. You may still need additional monitoring, work up, investigation, and treatment plan to be handled from this point on by out patient providers including your primary care provider and specialists. For any medication question, please contact your retail pharmacist or your primary care provider. Thank you. DISCHARGE INSTRUCTIONS FOR ANGIOPLASTY/CORONARY/PERIPHERAL/STENT IMPLANT FOR ADULT ANTICOAGULATION -Since the greatest risk of a blood clot forming with the stent occurs in the first 2-3 weeks after implantation, you will need to take anticoagulants for at least 12-18 months. ANTICOAGULATION MEDICATION Aspirin 81mg once a day, Ticagrelor (Brilinta) 90mg twice a day STATIN MEDICATION Atorvastatin (Lipitor) 80 mg Drug-Eluting Stent (HEIDE) DO NOT discontinue Brilinta/Aspirin during the first few months regardless of what you are advised by your family doctor or pharmacist, without first calling the bus steward who implanted the stent. If you require pain relief during this time, please take only ACETAMINOPHEN (TYLENOL)- NO additional aspirin or ibuprofen. DISCHARGE ACTIVITIES ARE FOLLOWS: First week after discharge: -Take it easy at home, no strenuous activity. -Do not lift or pull objects over 10-15 pounds, including children, and groceries for four weeks. If puncture site is at wrist do NOT lift more than three pounds for three days. - May walk up stairs. -May shower. -No excessive scrubbing of the affected site (groin). -May ride in car. -May resume sexual intercourse after 1-2 weeks. -No MRI for 12 days. -May drive in 4-7 days. -If puncture site is at the wrist do not manipulate the wrist for 24 hours, and no soaking wrist for three days. Second Week: -May take a bath -May start walking 3 times a week for 15-20 minutes at a leisurely pace. You should be able to carry on a conversation comfortably without feeling winded. -No strenuous activity as in jogging, running, weight lifting, stair steppers, etc. until the bus steward approves these activities. Check with the bus steward on your first follow-up visit. CALL YOUR PHYSICIAN at [phone]: -If bleeding should occur from the catheter insertion site- apply pressure to the site then immediately call us. -Report any fever, redness, drainage, increased swelling, or firmness at the catheter insertion site. Some bruising or slight swelling may be present at the time of discharge. -Should arm or leg become cold, numb, white, or blue, contact the bus steward immediately. -IF you should experience episodes of angina, e.g. chest discomfort, heaviness, tightness, pressure burning with or without radiation to the neck, jaw, arms or back- use 1 Nitrostat tablet under your tongue every 5-10 minutes and up to three tablets. IF NO RELIEF, CALL 911 or GO TO THE NEAREST EMERGENCY ROOM. -Please notify our office if you have recurrent angina. -[Cardiac Rehab Education Provided. Participation in the Cardiopulmonary Rehabilitation program is recommended. Please call Central Scheduling at [phone] to schedule your appointment.] The attending bus steward or [facility] nurse clinician should provide you with specific instructions regarding activity, diet, medications, and further follow up for you. Follow the medication instructions provided on your discharge. If the dosages and instructions on this sheet differ from the dosage and instructions on the bottle, follow the instructions on the bottle. [facility] is not responsible for incorrect prescription information provided by the patient during their visit. Do not stop your medications without consulting your health care provider. Please take the list with you to your next doctor's appointment.[facility] Work Phone: 1(588) 971-208912-04-2022 History and physical note Author Tammy Monroy [facility] February 25, 2022 12:11pmNote Date/TimeDece2021 10:38[place] [address] Hospitalist H&P Signed Patient: Zeeshan Llanos MR#: [id number] : 1975 Acct:[id number] Age/Sex: 46 / M Adm Date: 2 Loc: Room: [address] [place] [address] Type: ADM IN Attending Dr: Tammy Monroy MD Copies to: MD Alyssa Garcia MD, RES Tammy Monroy MD~ HPI DATE OF EXAMINATION: 02/25/22 CHIEF COMPLAINT: NSTEMI HISTORY OF PRESENT ILLNESS: Mr. Llanos is a 46-year-old male transferred from [facility] [place] for suspicion of NSTEMI with increasingtroponins. He has a past medical history of coronary artery disease, acute NSTEMI in 2020 s/p PCI of RCA, diabetes. He presented to [facility] at nighttime 12 after having chest pain that started at 6 PM which was relieved with nitro. Pain described then as 6 out of 10, substernal and radiating down both arms. Initial troponin was 274.8, increased to 335.7 this a.m. Patient received heparin bolusand maintenance drip before transfer. Patient was examined on the floor and is currently experiencing no chest pain. He endorses some heartburn and a 5/10 headache. He denies any nausea, chest tightness, trouble breathing, weakness, or swelling in limbs. He is a current smoker 1-1/2 to 2 packs/day. He quit smokeless tobacco a coupleyears ago. He is ready to quit smoking after this experience. Denies recreational drug use, citing cessation after 2020. and endorses very rare alcohol use. Patient lives with and pet dogs. Patient has an implanted sacral nerve stimulator to help walking after back injury s/p multiple surgeries. Denies bowel or bladder issues. Last BM yesterday. Not on antithrombotic therapy. Review of Systems Review of Systems Review of systems: 10 systems are reviewed and are negative apart what is mentioned in H&P [facility] Medical History (Updated 02/25/22 @ 09:31 by Zoë Zelaya RN) Arthritis Asthma Back pain Chest pain Current smoker 1-1 1/2 ppk/day Dental caries Diabetes Diabetes mellitus type 2 in nonobese Eczema Foreign body in eye GERD (gastroesophageal reflux disease) Hypertension Left eye pain Myocardial infarct Psoriasis Sacral nerve stimulator present Shortness of breath Surgical History (Updated 02/25/22 @ 09:32 by Zoë Zelaya RN) H/O vasectomy History of back surgery x2 History of cardiac catheterization Family History (Updated 02/25/22 @ 09:31 by Zoë Zelaya RN) Father Diabetes Heart disease Lung cancer Grandparent Diabetes Family/Other Diabetes Mother Seizures Social History Smoking Status: Current every day smoker Tobacco Type: cigarettes Substance Use Type: None Substance Abuse Comment: 30 Meds Medications and Allergies Allergies oxycodone [From Percocet] Allergy (Verified 11/02/21 20:23) Rash cephalexin [From Keflex] Adverse Reaction (Verified 11/02/21 20:23) pt states it made infection worse/dr told him it was keflx Home Medications albuterol sulfate 90 mcg/actuation aerosol inhaler (Ventolin HFA) 2 puff inhalation Q4-6H PRN Shortness Of Breath Or Wheezing 05/10/17 [History Confirmed 02/25/22] dulaglutide 1.5 mg/0.5 mL subcutaneous pen injector (Trulicity) 1.5 mg subcut QWEEK diabetes 05/10/17 [History Confirmed 02/25/22] metformin 500 mg tablet 500 mg PO BID diabetes 05/10/17 [History Confirmed 02/25/22] amitriptyline 50 mg tablet 50 mg PO HS 07/21/20 [History Confirmed 02/25/22] carisoprodol 350 mg tablet 350 mg PO TID 07/21/20 [History Confirmed 02/25/22] dexlansoprazole 60 mg capsule,biphase delayed release (Dexilant) 60 mg PO DAILY 07/21/20 [History Confirmed 02/25/22] hydrochlorothiazide 25 mg tablet 25 mg PO DAILY 07/21/20 [History Confirmed 02/25/22] meloxicam 15 mg tablet 15 mg PO DAILY 07/21/20 [History Confirmed 02/25/22] pregabalin 150 mg capsule 150 mg PO BID 07/21/20 [History Confirmed 02/25/22] aspirin 81 mg chewable tablet (Children's Aspirin) 81 mg PO DAILY #30 tabs 07/22/20 [Rx Confirmed 02/25/22] atorvastatin 10 mg tablet 30 mg PO QPM 30 days #90 tabs 07/22/20 [Rx Confirmed 02/25/22] lisinopril 2.5 mg tablet 2.5 mg PO DAILY 30 days #30 tabs 07/22/20 [Rx Confirmed 02/25/22] metoprolol tartrate 25 mg tablet 25 mg PO BID 30 days #60 tabs 07/22/20 [Rx Confirmed 02/25/22] dapagliflozin 10 mg tablet (Farxiga) 10 mg PO DAILY 11/02/21 [History Confirmed 02/25/22] finasteride 5 mg tablet 5 mg PO DAILY 11/02/21 [History Confirmed 02/25/22] hydrocodone 5 mg-acetaminophen 325 mg tablet 1 tab PO Q4-6H PRN Pain 11/02/21 [History Confirmed 02/25/22] tamsulosin 0.4 mg capsule 0.4 mg PO DAILY 11/02/21 [History Confirmed 02/25/22] amoxicillin 500 mg-potassium clavulanate 125 mg tablet See Rx Instructions .Route .COMPLEX 02/25/22[History Confirmed 02/25/22] budesonide 160 mcg-glycopyr 9 mcg-formot 4.8 mcg/actuation HFA inhaler (Breztri Aerosphere) See Rx Instructions .Route .COMPLEX 02/25/22 [History Confirmed 02/25/22] dexamethasone 4 mg tablet See Rx Instructions .Route .COMPLEX 02/25/22 [History Confirmed 02/25/22] Exam Physical Exam Vital Signs: Temp Pulse Resp BP Pulse Ox O2 Del Method 97.9 F 73 16 131/79 97 Room Air 02/25/22 08:18 02/25/22 08:18 02/25/22 08:18 02/25/22 08:18 02/25/22 08:18 02/25/22 08:18 Narrative: GENERAL: No apparent distress, alert, oriented, appears stated age, comfortable HEENT: NC/AT, EOMI, PERRL, conjunctiva clear, no adenopathy, no JVD CARDIOVASCULAR: Regular rate and regular rhythm, no murmurs, symmetric palpable pulses RESPIRATORY: nonlabored work of breathing on room air, clear to auscultation bilaterally, symmetricchest rise, no wheezes/rales/rhonchi ABDOMEN: Soft, non-tender, non-distended, normal bowel sounds BACK: Well-healed midline surgical scar. Extremities: Moving all extremities well. Without edema. Nicotine patch on R deltoid. SKIN: Intact, no rash, no trauma NEURO: Cranial nerves grossly intact, no focal neurologic signs PSYCHIATRIC: Good eye contact, appropriate mood and affect, cooperative A&P - Hospitalist Assessment/Plan (1) Diabetes: Plan 1. Suspected NSTEMI. Patient HEART score is 7. NSTEMI last year requiring PCI of RCA. Substernal chest pain has since resolved since presentation at [facility]. Troponins trended upwards from 274 to 335. Received heparin drip in the emergency room. We will give 1 dose of therapeutic Lovenox chest x- ray at that institution was unremarkable. -Okay repeated EKG here showed normal sinus without ischemic changes -Monitor troponin -Monitor need for supplemental oxygen. Currently comfortable on room air, sat 97% -Monitor need for pain control. Patient does not tolerate morphine due to headache. -Consult Cardiology for evaluation for catheterization 2. Diabetes mellitus type II with hyperglycemia. Glucose >600 at [facility]. -Monitor glucose -Home metformin and Trulicity -Add sliding scale, check hemoglobin A1c Hyperglycemia could be related due to recent steroid administration 3. GERD -Resume home dexlansoprazole Tums as needed 4. Current smoker -counseling provided. patient motivated to quit -Needs nicotine patch during admission 5. Recent history of bronchitis, diagnosed by PCP, was started on Augmentin andsteroids DVT prophylaxis SCDs and got therapeutic dose of Lovenox Code status: full K the patient has been seen and examined together with paramedical aide Dr. Cornejo. H&P writtenby her as above. The patient has been seen and examined. Ipersonally obtained the armando and critical portions of the history and physical exam. I reviewed the chart, the team's documentation, and discussed the patientcare with the team. I agree with the team's medical decision making and have edited the note to reflect my clinical findings and my assessment and plan. MD Arnold Documented By: Alyssa Cornejo MD, RES 02/25/22 1029 Signed By: <Electronically signed by Tammy Monroy MD> 02/25/[address] [place] [address] Work Phone: 1(242) 921-922808-12-2022 Progress note Author Di Patel [facility] November 03, 2021 8:49amNote Date/TimeAugust 2021 8:[place] [address] Event Note Signed Patient: Zeeshan Llanos MR#: [id number] : 1975 Acct:[id number] Age/Sex: 46 / M Adm Date: 2 Loc: Room: [address] [place] [address] Type: ADM INOo Attending Dr: Di Patel MD Copies to: MD Di Garcia MD~ Status Event Note Event Note DATE OF EVENT: 11/03/21 TIME OF EVENT: 08:47 EVENT DETAILS: Patient was admitted after midnight please refer to H&P for detail note regarding his presentation. On examination he was resting comfortably and mentioned pain slightly better as compared to hispresentation. Denies prior history of abdominal pain or having EGD done in the past. No sick contact and denies having diarrhea. He does have history of coronary disease and takes aspirin. Avoid other NSAIDs. Replace potassium. If no improvement in symptomswill obtain GI evaluation. Documented By: Di Patel MD 11/03/21 0847 Signed By: <Electronically signed by Di Patel MD> 11/03/21 0849 [facility] Work Phone: 1(165) 326-823908-12-2022 History and physical note Author Jacob Rosenthal [facility] November 03, 2021 5:23amNote Date/TimeAugust 2021 3:06[place] [address] Hospitalist H&P Signed Patient: Zeeshan Llanos MR#: [id number] : 1975 Acct:[id number] Age/Sex: 46 / M Adm Date: 2 Loc: Room: [address] [place] [address] Type: ADM INOo Attending Dr: Jacob Rosenthal MD Copies to: MD Jacob Garcia MD~ HPI DATE OF EXAMINATION: 11/03/21 HISTORY OF PRESENT ILLNESS: This is a pleasant 46M with PMH of HTN, HLD, DM, BPH, CAD (NSTEMI s/p stenting),GERD, Asthma, h/o substance abuse who p/w abdominal pain and fever and admitted for the evaluation and treatment Around two and half days ago, he started having constant non radiating abdominalpain. The pain is mainly in the middle of the abdomen . He said he tried over the counter medication without any relief. Today, he had a fever so he came to the ED. That pain was associated with nausea but no vomiting. He reported 10 days of productive cough of small amounts of green sputum. He denies sore throat, earpain/discharge, change of bowel movement , new joint pain/tenderness, rash, chills, sick contact orrecent travel. no exacerbating or alleviating factors. no similar symptoms in the past. Review of Systems Review of Systems Review of systems: Ten Systems reviewed with the patient, all negative except what stated in the HPI PMFSH Vaccinated for COVID-19?: No Medical History Arthritis Current smoker 1-1 1/2 ppk/day Dental caries Diabetes Diabetes mellitus type 2 in nonobese Eczema Foreign body in eye Hypertension Left eye pain Psoriasis Sacral nerve stimulator present Shortness of breath Surgical History H/O vasectomy Family History Father Diabetes Heart disease Grandparent Diabetes Family/Other Diabetes Social History Smoking Status: Current every day smoker Tobacco Type: cigarettes Substance Use Type: None Substance Abuse Comment: 30 Meds Medications and Allergies Allergies oxycodone [From Percocet] Allergy (Verified 11/02/21 20:23) Rash cephalexin [From Keflex] Adverse Reaction (Verified 11/02/21 20:23) pt states it made infection worse/dr told him it was keflx Home Medications albuterol sulfate 90 mcg/actuation aerosol inhaler (Ventolin HFA) 2 puff inhalation Q4-6H PRN Shortness Of Breath Or Wheezing 05/10/17 [History Confirmed 11/02/21] dulaglutide 1.5 mg/0.5 mL subcutaneous pen injector (Trulicity) 1.5 mg subcut QWEEK diabetes 05/10/17 [History Confirmed 11/02/21] metformin 500 mg tablet 500 mg PO BID diabetes 05/10/17 [History Confirmed 11/02/21] amitriptyline 50 mg tablet 50 mg PO HS 07/21/20 [History Confirmed 11/02/21] carisoprodol 350 mg tablet 350 mg PO TID 07/21/20 [History Confirmed 11/02/21] dexlansoprazole 60 mg capsule,biphase delayed release (Dexilant) 60 mg PO DAILY 07/21/20 [History Confirmed 11/02/21] hydrochlorothiazide 25 mg tablet 25 mg PO DAILY 07/21/20 [History Confirmed 11/02/21] meloxicam 15 mg tablet 15 mg PO BID 07/21/20 [History Confirmed 11/02/21] pregabalin 150 mg capsule 150 mg PO TID 07/21/20 [History Confirmed 11/02/21] aspirin 81 mg chewable tablet (Children's Aspirin) 81 mg PO DAILY #30 tabs 07/22/20 [Rx Confirmed 11/02/21] atorvastatin 10 mg tablet 30 mg PO QPM 30 days #90 tabs 07/22/20 [Rx Confirmed 11/02/21] lisinopril 2.5 mg tablet 2.5 mg PO DAILY 30 days #30 tabs 07/22/20 [Rx Confirmed 11/02/21] metoprolol tartrate 25 mg tablet 25 mg PO BID 30 days #60 tabs 07/22/20 [Rx Confirmed 11/02/21] dapagliflozin 10 mg tablet (Florinaga) 10 mg PO DAILY 11/02/21 [History Confirmed 11/02/21] finasteride 5 mg tablet 5 mg PO DAILY 11/02/21 [History Confirmed 11/02/21] hydrocodone 5 mg-acetaminophen 325 mg tablet 1 tab PO Q4-6H PRN Pain 11/02/21 [History Confirmed 11/02/21] tamsulosin 0.4 mg capsule 0.4 mg PO DAILY 11/02/21 [History Confirmed 11/02/21] Exam Physical Exam Vital Signs: Temp Pulse Resp BP Pulse Ox O2 Del Method O2 Flow Rate 36.2 C L 73 18 127/58 L 92 L Room Air 2 11/03/21 02:30 11/03/21 02:30 11/03/21 02:30 11/03/21 02:30 11/03/21 02:30 11/03/21 02:30 11/03/21 01:30 Narrative: GEN: Pleasant, Cooperative, Not in acute distress. HEAD: NCAT. ENT: Lips, and tongue are normal, oropharynx normal. EYES: white sclera, PERRLA NECK: Supple, ? JVD, ? LAD, ? thyromegaly, ? carotid bruits LUNGS: CTA. normal respiratory effort. CHEST: no chest wall tenderness. CV: S1S2 nl, ? M/R/G ABD: Soft, ND, mild epigastric tenderness to deep plapation, + BS, ? rebound/guarding, ?CVA tenderness, ? HSM MUSCULOSKELETAL: ? joint swelling or erythema SKIN: Normal temperature, turgor and texture. EXT: No edema in LE bilaterally, no calf muscle tenderness. NEURO: ? FND PSYCH: nl affect, ? hallucinations, nl speech, AOx3. Results Lab Results Labs: Laboratory Last Values Corrected WBC 16.2 X10E3/uL (4.1-10.5) H 11/02/21 22:12 Uncorrected WBC Count 16.2 x10E3/uL (4.5-11.0) H 11/02/21 22:12 RBC 5.93 x10E6/uL (3.90-5.60) H 11/02/21 22:12 Hgb 17.0 g/dL (13.0-17.0) 11/02/21 22:12 Hct 50.3 % (38.8-50.0) H 11/02/21 22:12 MCV 84.9 fl (83.5-101) 11/02/21 22:12 MCH 28.7 pg (27.5-35.2) 11/02/21 22:12 MCHC 33.8 g/dL (32.5-35.6) 11/02/21 22:12 RDW 14.2 % (12.0-14.8) 11/02/21 22:12 Plt Count 272 x10E3/uL (150-450) 11/02/21 22:12 MPV 9.1 fl (6.6-10.1) 11/02/21 22:12 Neut % (Auto) 74.8 % (.) 11/02/21 22:12 Lymph % (Auto) 16.2 % (.) 11/02/21 22:12 [place] % (Auto) 6.7 % (.) 11/02/21 22:12 Eos % (Auto) 1.6 % (.) 11/02/21 22:12 Baso % (Auto) 0.7 % (.) 11/02/21 22:12 Neut # (Auto) 12.1 x10E3/uL (1.8-7.7) H 11/02/21 22:12 Lymph # (Auto) 2.6 x10E3/uL (1.00-4.8) 11/02/21 22:12 [place] # (Auto) 1.1 x10E3/uL (0.0-0.8) H 11/02/21 22:12 Eos # (Auto) 0.3 x10E3/uL (0.0-0.45) 11/02/21 22: Baso # (Auto) 0.1 x10E3/uL (0.0-0.2) 11/02/21 22:12 Nucleated RBC % (auto) 0.0 % (0-0.5) 11/02/21 22: PT 11.5 Seconds (9.0-12.9) 11/02/21 22:12 INR 1.0 08/11/22 22:12 APTT 33.5 Seconds (25.1-36.5) 11/02/21 22:12 PHA Creatinine Clear 191.64 11/02/21 22:12 Sodium 133 mmol/L (136-146) L 11/02/21 22:12 Potassium 3.2 mmol/L (3.5-5.1) L 11/02/21 22:12 Chloride 91 mmol/L (95-114) L 11/02/21 22:12 Carbon Dioxide 30.3 mmol/L (22.0-30.0) H 11/02/21 22:12 BUN 5 mg/dL (9-23) L 11/02/21 22:12 Creatinine 0.56 mg/dL (0.64-1.27) L 11/02/21 22:12 Est GFR ( Amer) > 60 mL/Min 11/02/21 22:12 Est GFR (Non-Af Amer) > 60 mL/Min 11/02/21 22:12 Glucose 159 mg/dL (70-100) H 11/02/21 22:12 Lactic Acid 1.7 mmol/L (0.5-2.2) 11/02/21 22:12 Calcium 9.9 mg/dL (8.2-10.2) 11/02/21 22:12 Total Bilirubin 0.7 mg/dL (0.3-1.2) 11/02/21 22:12 AST 18 U/L (10-42) 11/02/21 22:12 ALT 33 U/L (10-60) 11/02/21 22:12 Alkaline Phosphatase 114 U/L (32-92) H 11/02/21 22:12 Troponin I High Sens 8 pg/mL (0-20) 11/02/21 22:12 Total Protein 8.3 gm/dL (6.1-7.9) H 11/02/21 22:12 Albumin 3.9 gm/dL (3.2-5.5) 11/02/21 22:12 Globulin 4.4 gm/dL 11/02/21 22:12 Albumin/Globulin Ratio 0.9 11/02/21 22:12 Lipase 41.0 U/L (22-51) 11/02/21 22:12 Urine Color Yellow (Yellow) 11/02/21: Urine Appearance Clear (Clear) 11/02/21: Urine pH 7.0 (5.0-9.0) 11/02/21: Ur Specific [place] 1.034 (1.001-1.030) H 11/02/21 22: Urine Protein Negative mg/dL (Negative) 11/02/21: Urine Glucose (UA) >=1000 mg/dL (Normal) H 11/02/21: Urine Ketones Negative (Negative) 11/02/21: Urine Occult Blood Trace (Negative) H 11/02/21: Urine Nitrite Negative (Negative) 11/02/21: Urine Bilirubin Negative (Negative) 11/02/21: Urine Urobilinogen Normal mg/dL (Normal) 11/02/21: Ur Leukocyte Esterase Negative (Negative) 11/02/21: Urine RBC 3-4 /HPF (0-4) 11/02/21: Urine WBC None seen /HPF (0-4) 11/02/21: Ur Squamous Epith Cells 0-1 /HPF (0-2) 11/02/21: Urine Bacteria None seen (None Seen) 11/02/21: Hyaline Casts None seen /LPF (0-8) 11/02/21: Urine Opiates Screen Negative (Negative) 11/02/21 22: Ur Barbiturates Screen Negative (Negative) 11/02/21: Ur Phencyclidine Scrn Negative (Negative) 11/02/21: Ur Amphetamines Screen Negative (Negative) 11/02/21: U Benzodiazepines Scrn Negative (Negative) 11/02/21: Urine Cocaine Screen Negative (Negative) 11/02/21: U Marijuana (THC) Screen Negative (Negative) 11/02/21: SARS Antigen (LFIA) Negative (Negative) 11/02/21 23:18 Microbiology Results Micro: Microbiology - Results from entire visit 11/02/21 23:18 Nasal SARS Antigen (LFIA) - Final A&P - Hospitalist Assessment/Plan (1) Duodenitis: (2) Diabetes: (3) Hypertension: Plan Acute Abdominal Pain/duodenitis The patient p/w abdominal pain and nausea. He has a mild fever. He is hemodynamically stable Initial diagnostic testing: - CBC showed leukocytosis but no left shift - Electrolytes shows Mild Hyponatremia and hypokalemia - elevated bicarbonate is likely metabolic alkalosis compensating respiratory acidosis due to chronic hypercapnia (smoker/?COPD) - BUN and Creatinine shows no significant abnormality - Glucose is not significantly elevated - Lactic acid is not elevated - Lipase is not elevated - Urinalysis didn?t show any pyuria or hematuria - EKG doesn?t show any acute inferior ischemia - Tox screen negative - Abdominal CT without contrast reported as duodenitis (final [facility] report pending) It is likely viral , admit for observation Plan: pain control and treatment and supportive PPI Blood Cx pending DM carbohydrate controlled diet. sliding scale insulin and accuchecks. hold oral antidiabetic medication/metformin. hypoglycemia protocol. Chronic diseases: Unless mentioned Above, Essential home medications have been continued. DVT Px : Addressed Plan of care Discussed with: the medical team, the patient Documented By: Jacob Rosenthal MD 11/03/21 030 Signed By: <Electronically signed by Jacob Rosenthal MD> 11/03/21 0523 [facility] Work Phone: Discharge summary Author Di Patel [facility] November 08, 2021 9:51amNote Date/TimeAugust 2021 8:30[place] [address] Discharge Summary Signed with Addenda Patient: Zeeshan Llanos MR#: [id number] : 1975 Acct:[id number] Age/Sex: 46 / M Adm Date: 2 Loc: Room: [address] [place] [address]: Di Patel MD Copies to: MD Di Garcia MD~ ADDENDUM1 Date of discharge: 11/03/21 Addendum Documented By: Di Patel MD 11/08/21 0951 Addendum Signed By: <Electronically signed by Di Patel MD> 11/08/21 0951 Providers Date of Discharge: 11/04/21 Discharging Provider: Di Patel Primary Care Provider: Crystal Smart Blunt Discharge Diagnosis (1) Duodenitis: (2) Diabetes: (3) Hypertension: Final Diagnosis Final Discharge Diagnosis: As above Summary Hospital Course Hospital course: Patient is a 46-year-old male with history of coronary disease, diabetes and multiple other medicalcomorbidities. He presented to ER with complaint of upper abdominal pain. In the ER CT abdomen/pelvis with contrast showed fatty liver, suspected acute pancreatitis without complication correlation with amylase and lipase is recommended. Duodenitis was also in differential. Lipasewas normal. Patient was admitted for duodenitis suspecting viral. He denied having weight loss, difficulty swallowing or any other constitutional symptoms. He was started on IV fluid and replacement of electrolytes. Patient mention significant improvement in his symptoms and has been tolerating oral diet would like to go home. Due to improved symptoms he will be discharged home and recommend outpatient follow-up regarding repeated labs. If symptoms persist he will require GI evaluation and possible EGD. Will recommend to hold NSAIDs until GI symptoms are resolved. Condition Condition at Discharge: Stable Status at Discharge Functional status at discharge: independent ambulation Overall status at discharge: patient is back to baseline Time Spent with Patient Time spent providing/coordinating discharge services (# min): 22 Diagnostic Studies Completed and Pending Studies Pending studies at discharge: 11/02/21 22:51 Blood Culture Stat Preliminary micro results at discharge 11/02/21 22:51 Blood Culture - Preliminary Blood - Right Hand No Growth 1 Day 11/02/21 22:12 Blood Culture - Preliminary Blood - Right Antecubital No Growth 1 Day Labs on day of discharge: 11/03/21 11:45: POC Glucose 125, POC Glucose Comment Glu2: cleaned meter 11/03/21 08:35: POC Glucose 153, POC Glucose Comment Glu2: cleaned meter Exam Physical Exam Vital Signs: Temp Pulse Resp BP Pulse Ox O2 Del Method O2 Flow Rate 98.4 F 72 16 144/81 H 93 L Room Air 2 11/03/21 08:00 11/03/21 12:00 11/03/21 12:00 11/03/21 08:00 11/03/21 12:00 11/03/21 08:00 11/03/21 01:30 Const General: cooperative and no acute distress Orientation: alert, awake and oriented x3 Resp Effort & Inspection: normal respiratory effort and able to speak in complete sentences Auscultation: no rales, no rhonchi and no wheezes Cardio Rate: regular rate Rhythm: regular rhythm Heart Sounds: S1 normal and S2 normal GI Palpation: soft, not firm, no guarding and nontender Auscultation: normal bowel sounds Neuro General: patient alert, patient awake, patient oriented x3, moves all extremities and no focal motor deficits Cranial Nerves: CN's II-XII intact bilaterally Cognition: normal cognition Speech: speech normal Motor: muscle tone normal throughout and strength 5/5 throughout Sensory Exam: no sensory deficits noted Extrem General: no clubbing, cyanosis or edema and no calf tenderness Discharge Plan Discharge Plan Patient Disposition: Home Activity: No Activity Restriction Diet: Regular Stand Alone Forms: Work/School Release Form Prescriptions: Continued carisoprodol 350 mg tablet 350 mg PO TID Label Comments: take 1 tablet by mouth three times a day amitriptyline 50 mg tablet 50 mg PO HS Label Comments: take 1 tablet by mouth at bedtime hydrochlorothiazide 25 mg tablet 25 mg PO DAILY Label Comments: take 1 tablet by mouth once daily pregabalin 150 mg capsule 150 mg PO TID Label Comments: take 1 capsule by mouth three times a day dexlansoprazole [Dexilant] 60 mg capsule,biphase delayed releas 60 mg PO DAILY Label Comments: Take 1 capsule(s) by mouth daily atorvastatin 10 mg Tablet 30 mg PO QPM 30 Days Qty: 90 12RF lisinopril 2.5 mg Tablet 2.5 mg PO DAILY 30 Days Qty: 30 12RF metoprolol tartrate 25 mg Tablet 25 mg PO BID 30 Days Qty: 60 12RF aspirin [Children's Aspirin] 81 mg Tablet,Chewable 81 mg PO DAILY Qty: 30 10RF metformin 500 mg Tablet 500 mg PO BID Hold Instructions: Resume on 07/24/20. Trulicity 1.5 mg/0.5 mL Pen Injector 1.5 mg SUB-Q QWEEK Rx Instructions: every Saturday albuterol sulfate [Ventolin HFA] 90 mcg/actuation Hfa Aerosol Inhaler 2 puff INHALATION Q4-6H PRN (Reason: Shortness Of Breath Or Wheezing) hydrocodone-acetaminophen 5-325 mg Tablet 1 tab PO Q4-6H PRN (Reason: Pain) tamsulosin 0.4 mg capsule 0.4 mg PO DAILY Label Comments: take 1 capsule by mouth once daily finasteride 5 mg tablet 5 mg PO DAILY Label Comments: take 1 tablet by mouth once daily Farxiga 10 mg tablet 10 mg PO DAILY Label Comments: take 1 tablet by mouth once daily Held meloxicam 15 mg tablet 15 mg PO BID Hold Instructions: Discussed risk and benefit ratio of this medication with your doctor before resumption. Label Comments: take 1 tablet by mouth twice a day Other Ambulatory Orders: Basic Metabolic Panel (Routine) Timeframe: 4 Days Location: Determined by Patient Ordered By: Di Patel Complete Blood Count Auto Diff (Routine) Timeframe: 4 Days Location: Determined by Patient Ordered By: Di Patel Follow Up: Crystal Carmona MD [Primary Care Provider] - 11/13/21 2:20 pm (The following follow-up appointment has been scheduled for you. Please call to reschedule if needed.) Documented By: Di Patel MD 11/04/21825 Signed By: <Electronically signed by Di Patel MD> 11/04/[address] [facility] Work Phone: Evaluation + Plan note No data available for this section [facility] Diagnosis Onset Date Resolution Status Diabetes acuteDuodenitisacuteFeveracuteHypertensionacuteLeukocytosisacute [facility] Work Phone: Evaluation note* Diagnosis Onset Date Resolution Status Acute coronary syndrome acuteDiabetesacuteDiabetes mellitus type 2 in nonobeseacuteGERD (gastroesophageal reflux disease)acuteHyperlipidemiaacuteHypertensionacuteNSTEMI (non-ST elevated myocardial infarction)acuteSingle vessel coronary artery diseaseacute [facility] Work Phone: Evaluation note* Diagnosis Coronary artery disease, unspecified vessel or lesion type, unspecified whether angina present, unspecified whether mcgrath or transplanted heart History of PTCA Postsurgical percutaneous transluminal coronary angioplasty status Myocardial infarction, unspecified DC type, unspecified artery (CMS/HCC) Hypertension, unspecified type Hyperlipidemia, unspecified hyperlipidemia type Other specified diabetes mellitus without complication, with long-term current use of insulin (CMS/[facility]) Current smoker Preop examination Unspecified pre-operative examination documented in this encounter [facility] Work Phone: Evaluation note* Diagnosis Onset Date Resolution Status Dental decay noneactiveDental infectionnoneactiveLow back painC[facility] Work Phone: Evaluation note* Diagnosis Spondylosis without myelopathy or radiculopathy, lumbar region- Primary Unspecified mononeuropathy of bilateral lower limbs Unspecified mononeuropathy of bilateral lower limbs- Primary Unspecified mononeuropathy of bilateral lower limbs [facility] [place] [facility] Diagnosis Lumbar spondylosis- Primary Lumbosacral spondylosis without myelopathy documented in this encounter [facility] [place] [facility]* Diagnosis Other spondylosis with myelopathy, cervical region- Primary documented in this encounter [facility] [place] [facility]* Diagnosis Cervical spinal stenosis- Primary Spinal stenosis in cervical region Cervical spondylosis Cervical spondylosis without myelopathy Cervical radiculopathy Brachial neuritis or radiculitis nos Spinal stenosis of cervical region- Primary Spinal stenosis in cervical region Spinal stenosis of cervical region Spinal stenosis in cervical region documented in this encounter [facility] [place] [facility]* Diagnosis Spinal stenosis of cervical region- Primary Spinal stenosis in cervical region Spinal stenosis of cervical region Spinal stenosis in cervical region Preop testing Unspecified pre-operative examination Spinal stenosis of cervical region Spinal stenosis in cervical region documented in this encounter [facility] [place] [facility]* Diagnosis Spinal stenosis of cervical region- Primary Spinal stenosis in cervical region Spinal stenosis of cervical region Spinal stenosis in cervical region documented in this encounter [facility] [place] [facility]* Diagnosis Postoperative pain- Primary Other acute postoperative pain Spondylosis without myelopathy or radiculopathy, cervical region documented in this encounter [facility] [place] [facility]* Diagnosis Spinal stenosis of lumbar region with neurogenic claudication- Primary Pre-op testing- Primary Unspecified pre-operative examination Spinal stenosis of lumbar region with neurogenic claudication Spinal stenosis of lumbar region with neurogenic claudication documented in this encounter [facility] [place] [facility]* Diagnosis Spinal stenosis of lumbar region with neurogenic claudication- Primary Spinal stenosis of lumbar region with neurogenic claudication Spinal stenosis of cervical region Spinal stenosis in cervical region Unspecified mononeuropathy of bilateral lower limbs documented in this encounter [facility] [place] [facility]* Diagnosis S/P spinal fusion- Primary Arthrodesis status [facility] Diagnosis Spinal stenosis of lumbar region with neurogenic claudication- Primary Other spondylosis, lumbar region Other spondylosis with myelopathy, cervical region Spondylosis without myelopathy or radiculopathy, lumbar region Arthrodesis status Other spondylosis with myelopathy, cervical region [facility] Diagnosis Spinal stenosis of lumbar region without neurogenic claudication- Primary Lumbar radiculopathy Thoracic or lumbosacral neuritis or radiculitis, unspecified Lumbar spondylosis Lumbosacral spondylosis without myelopathy [facility]* Diagnosis Arthrodesis status- Primary [facility] Diagnosis Coronary artery disease, unspecified vessel or lesion type, unspecified whether angina present, unspecified whether mcgrath or transplanted heart History of PTCA Postsurgical percutaneous transluminal coronary angioplasty status Hyperlipidemia, unspecified hyperlipidemia type Myocardial infarction, unspecified DC type, unspecified artery (Multi) Other specified diabetes mellitus without complication, with long-term current use of insulin Current smoker Body mass index (BMI) of 29.0 to 29.9 in adult Drug-induced erectile dysfunction documented in this encounter [facility] Work Phone: Evaluation note* Diagnosis Arthrodesis status- Primary Other spondylosis, lumbar region [facility] note[facility] assessment information available [facility] Work Phone: Evaluation note* Diagnosis Arthrodesis status- Primary Hip pain, left Pain in joint, pelvic region and thigh Chronic left SI joint pain Disorders of sacrum [facility] Author Jacob Rosenthal [facility] November 03, 2021 5:23amNote Date/TimeAugust 2021 3:06[place] [address] Hospitalist H&P Signed Patient: Zeeshan Llanos MR#: [id number] : 1975 Acct:[id number] Age/Sex: 46 / M Adm Date: 2 Loc: Room: 6O2007-3 Type: ADM INOo Attending Dr: Jacob Rosenthal MD Copies to: MD Jacob Garcia MD~ [facility] DATE OF EXAMINATION: 11/03/21 HISTORY OF PRESENT ILLNESS: This is a pleasant 46M with PMH of HTN, HLD, DM, BPH, CAD (NSTEMI s/p stenting),GERD, Asthma, h/o substance abuse who p/w abdominal pain and fever and admitted for the evaluation and treatment Around two and half days ago, he started having constant non radiating abdominalpain. The pain is mainly in the middle of the abdomen . He said he tried over the counter medication without any relief. Today, he had a fever so he came to the ED. That pain was associated with nausea but no vomiting. He reported 10 days of productive cough of small amounts of green sputum. He denies sore throat, earpain/discharge, change of bowel movement , new joint pain/tenderness, rash, chills, sick contact orrecent travel. no exacerbating or alleviating factors. no similar symptoms in the past. Review of Systems Review of Systems Review of systems: Ten Systems reviewed with the patient, all negative except what stated in the HPI PMFSH Vaccinated for COVID-19?: No Medical History Arthritis Current smoker 1-1 1/2 ppk/day Dental caries Diabetes Diabetes mellitus type 2 in nonobese Eczema Foreign body in eye Hypertension Left eye pain Psoriasis Sacral nerve stimulator present Shortness of breath Surgical History H/O vasectomy Family History Father Diabetes Heart disease Grandparent Diabetes Family/Other Diabetes Social History Smoking Status: Current every day smoker Tobacco Type: cigarettes Substance Use Type: None Substance Abuse Comment: 30 Meds Medications and Allergies Allergies oxycodone [From Percocet] Allergy (Verified 11/02/21 20:23) Rash cephalexin [From Keflex] Adverse Reaction (Verified 11/02/21 20:23) pt states it made infection worse/dr told him it was keflx Home Medications albuterol sulfate 90 mcg/actuation aerosol inhaler (Ventolin HFA) 2 puff inhalation Q4-6H PRN Shortness Of Breath Or Wheezing 05/10/17 [History Confirmed 11/02/21] dulaglutide 1.5 mg/0.5 mL subcutaneous pen injector (Trulicity) 1.5 mg subcut QWEEK diabetes 05/10/17 [History Confirmed 11/02/21] metformin 500 mg tablet 500 mg PO BID diabetes 05/10/17 [History Confirmed 11/02/21] amitriptyline 50 mg tablet 50 mg PO HS 07/21/20 [History Confirmed 11/02/21] carisoprodol 350 mg tablet 350 mg PO TID 07/21/20 [History Confirmed 11/02/21] dexlansoprazole 60 mg capsule,biphase delayed release (Dexilant) 60 mg PO DAILY 07/21/20 [History Confirmed 11/02/21] hydrochlorothiazide 25 mg tablet 25 mg PO DAILY 07/21/20 [History Confirmed 11/02/21] meloxicam 15 mg tablet 15 mg PO BID 07/21/20 [History Confirmed 11/02/21] pregabalin 150 mg capsule 150 mg PO TID 07/21/20 [History Confirmed 11/02/21] aspirin 81 mg chewable tablet (Children's Aspirin) 81 mg PO DAILY #30 tabs 07/22/20 [Rx Confirmed 11/02/21] atorvastatin 10 mg tablet 30 mg PO QPM 30 days #90 tabs 07/22/20 [Rx Confirmed 11/02/21] lisinopril 2.5 mg tablet 2.5 mg PO DAILY 30 days #30 tabs 07/22/20 [Rx Confirmed 11/02/21] metoprolol tartrate 25 mg tablet 25 mg PO BID 30 days #60 tabs 07/22/20 [Rx Confirmed 11/02/21] dapagliflozin 10 mg tablet (Farxiga) 10 mg PO DAILY 11/02/21 [History Confirmed 11/02/21] finasteride 5 mg tablet 5 mg PO DAILY 11/02/21 [History Confirmed 11/02/21] hydrocodone 5 mg-acetaminophen 325 mg tablet 1 tab PO Q4-6H PRN Pain 11/02/21 [History Confirmed 11/02/21] tamsulosin 0.4 mg capsule 0.4 mg PO DAILY 11/02/21 [History Confirmed 11/02/21] Exam Physical Exam Vital Signs: Temp Pulse Resp BP Pulse Ox O2 Del Method O2 Flow Rate 36.2 C L 73 18 127/58 L 92 L Room Air 2 11/03/21 02:30 11/03/21 02:30 11/03/21 02:30 11/03/21 02:30 11/03/21 02:30 11/03/21 02:30 11/03/21 01:30 Narrative: GEN: Pleasant, Cooperative, Not in acute distress. HEAD: NCAT. ENT: Lips, and tongue are normal, oropharynx normal. EYES: white sclera, PERRLA NECK: Supple, ? JVD, ? LAD, ? thyromegaly, ? carotid bruits LUNGS: CTA. normal respiratory effort. CHEST: no chest wall tenderness. CV: S1S2 nl, ? M/R/G ABD: Soft, ND, mild epigastric tenderness to deep plapation, + BS, ? rebound/guarding, ?CVA tenderness, ? HSM MUSCULOSKELETAL: ? joint swelling or erythema SKIN: Normal temperature, turgor and texture. EXT: No edema in LE bilaterally, no calf muscle tenderness. NEURO: ? FND PSYCH: nl affect, ? hallucinations, nl speech, AOx3. Results Lab Results Labs: Laboratory Last Values Corrected WBC 16.2 X10E3/uL (4.1-10.5) H 11/02/21 22:12 Uncorrected WBC Count 16.2 x10E3/uL (4.5-11.0) H 11/02/21 22:12 RBC 5.93 x10E6/uL (3.90-5.60) H 11/02/21 22:12 Hgb 17.0 g/dL (13.0-17.0) 11/02/21 22:12 Hct 50.3 % (38.8-50.0) H 11/02/21 22:12 MCV 84.9 fl (83.5-101) 11/02/21 22:12 MCH 28.7 pg (27.5-35.2) 11/02/21 22:12 MCHC 33.8 g/dL (32.5-35.6) 11/02/21 22:12 RDW 14.2 % (12.0-14.8) 11/02/21 22:12 Plt Count 272 x10E3/uL (150-450) 11/02/21 22:12 MPV 9.1 fl (6.6-10.1) 11/02/21 22:12 Neut % (Auto) 74.8 % (.) 11/02/21 22:12 Lymph % (Auto) 16.2 % (.) 11/02/21 22:12 Knox % (Auto) 6.7 % (.) 11/02/21 22:12 Eos % (Auto) 1.6 % (.) 11/02/21 22:12 Baso % (Auto) 0.7 % (.) 11/02/21 22:12 Neut # (Auto) 12.1 x10E3/uL (1.8-7.7) H 11/02/21 22:12 Lymph # (Auto) 2.6 x10E3/uL (1.00-4.8) 11/02/21 22:12 Knox # (Auto) 1.1 x10E3/uL (0.0-0.8) H 11/02/21 22:12 Eos # (Auto) 0.3 x10E3/uL (0.0-0.45) 11/02/21 22:12 Baso # (Auto) 0.1 x10E3/uL (0.0-0.2) 11/02/21 22:12 Nucleated RBC % (auto) 0.0 % (0-0.5) 11/02/21 22:12 PT 11.5 Seconds (9.0-12.9) 11/02/21 22:12 INR 1.0 11/02/21 22:12 APTT 33.5 Seconds (25.1-36.5) 11/02/21 22:12 PHA Creatinine Clear 191.64 11/02/21 22:12 Sodium 133 mmol/L (136-146) L 11/02/21 22:12 Potassium 3.2 mmol/L (3.5-5.1) L 11/02/21 22:12 Chloride 91 mmol/L (95-114) L 11/02/21 22:12 Carbon Dioxide 30.3 mmol/L (22.0-30.0) H 11/02/21 22:12 BUN 5 mg/dL (9-23) L 11/02/21 22:12 Creatinine 0.56 mg/dL (0.64-1.27) L 11/02/21 22:12 Est GFR ( Amer) > 60 mL/Min 11/02/21 22:12 Est GFR (Non-Af Amer) > 60 mL/Min 11/02/21 22:12 Glucose 159 mg/dL (70-100) H 11/02/21 22:12 Lactic Acid 1.7 mmol/L (0.5-2.2) 11/02/21 22:12 Calcium 9.9 mg/dL (8.2-10.2) 11/02/21 22:12 Total Bilirubin 0.7 mg/dL (0.3-1.2) 11/02/21 22:12 AST 18 U/L (10-42) 11/02/21 22:12 ALT 33 U/L (10-60) 11/02/21 22:12 Alkaline Phosphatase 114 U/L (32-92) H 11/02/21 22:12 Troponin I High Sens 8 pg/mL (0-20) 11/02/21 22:12 Total Protein 8.3 gm/dL (6.1-7.9) H 11/02/21 22:12 Albumin 3.9 gm/dL (3.2-5.5) 11/02/21 22:12 Globulin 4.4 gm/dL 11/02/21 22:12 Albumin/Globulin Ratio 0.9 11/02/21 22: Lipase 41.0 U/L (22-51) 11/02/21 22:12 Urine Color Yellow (Yellow) 11/02/21: Urine Appearance Clear (Clear) 11/02/21 22: Urine pH 7.0 (5.0-9.0) 11/02/21 22: Ur Specific [place] 1.034 (1.001-1.030) H 11/02/21 22:28 Urine Protein Negative mg/dL (Negative) 11/02/21 22: Urine Glucose (UA) >=1000 mg/dL (Normal) H 11/02/21 22:28 Urine Ketones Negative (Negative) 11/02/21 22:28 Urine Occult Blood Trace (Negative) H 11/02/21 22: Urine Nitrite Negative (Negative) 11/02/21 22: Urine Bilirubin Negative (Negative) 11/02/21 22: Urine Urobilinogen Normal mg/dL (Normal) 11/02/21 22:28 Ur Leukocyte Esterase Negative (Negative) 11/02/21: Urine RBC 3-4 /HPF (0-4) 11/02/21: Urine WBC None seen /HPF (0-4) 11/02/21 22:28 Ur Squamous Epith Cells 0-1 /HPF (0-2) 11/02/21 22:28 Urine Bacteria None seen (None Seen) 11/02/21: Hyaline Casts None seen /LPF (0-8) 11/02/21 22: Urine Opiates Screen Negative (Negative) 11/02/21: Ur Barbiturates Screen Negative (Negative) 11/02/21: Ur Phencyclidine Scrn Negative (Negative) 11/02/21: Ur Amphetamines Screen Negative (Negative) 11/02/21 22: U Benzodiazepines Scrn Negative (Negative) 11/02/21: Urine Cocaine Screen Negative (Negative) 11/02/21: U Marijuana (THC) Screen Negative (Negative) 11/02/21 22: SARS Antigen (LFIA) Negative (Negative) 11/02/21 23:18 Microbiology Results Micro: Microbiology - Results from entire visit 11/02/21 23:18 Nasal SARS Antigen (LFIA) - Final A&P - Hospitalist Assessment/Plan (1) Duodenitis: (2) Diabetes: (3) Hypertension: Plan Acute Abdominal Pain/duodenitis The patient p/w abdominal pain and nausea. He has a mild fever. He is hemodynamically stable Initial diagnostic testing: - CBC showed leukocytosis but no left shift - Electrolytes shows Mild Hyponatremia and hypokalemia - elevated bicarbonate is likely metabolic alkalosis compensating respiratory acidosis due to chronic hypercapnia (smoker/?COPD) - BUN and Creatinine shows no significant abnormality - Glucose is not significantly elevated - Lactic acid is not elevated - Lipase is not elevated - Urinalysis didn?t show any pyuria or hematuria - EKG doesn?t show any acute inferior ischemia - Tox screen negative - Abdominal CT without contrast reported as duodenitis (final [facility] pending) It is likely viral , admit for observation Plan: pain control and treatment and supportive PPI Blood Cx pending DM carbohydrate controlled diet. sliding scale insulin and accuchecks. hold oral antidiabetic medication/metformin. hypoglycemia protocol. Chronic diseases: Unless mentioned Above, Essential home medications have been continued. DVT Px : Addressed Plan of care Discussed with: the medical team, the patient Documented By: Jacob Rosenthal MD 11/03/21302 Signed By: <Electronically signed by Jacob Rosenthal MD> 11/03/21522 [facility] Work Phone: History general Narrative - Reported* Type Description Date Medical History Neuropathy Medical HistoryDegenerative disc disease at L5-S1 levelMedical HistoryDiabetes mellitusMedical HistoryHypertensionMedical HistoryGERD (gastroesophageal reflux disease)Medical HistoryasthmaSurgical HistorydiskectomySurgical Historyvasectomy 1998Surgical Historymicrodisectomy L5= [id number] Historyumbilical hernia repairSurgical HistoryRFA injection in back07/27/2016Surgical Historyumbilical hernia [id number] Historyback [id number] HistoryDCS- Dr Balderas04/2017Hospitalization Historysee aboveHospitalization Historypneumonia and bronchitis [place] [facility] Discharge instructions No data available for this section [facility] CenterInstructionsNot on filedocumented in this encounter [facility]Not [facility] filedocument[facility] in this encounter [facility]InstructionsNot on filedocumented in this encounter [facility]Not on filedocumented in this encounter [facility]ructionsNot on filedocumented in this encounter [facility]ructionsNot on filedocumented in this encounter [facility]ructionsNot on filedocumented in this encounter [facility] SystemInstructionsNot on filedocumented in this encounter [facility] SystemProgress note Author Di Patel [facility] November 03, 2021 8:49amNote Date/TimeAugust 2021 8:[place] [address] Event Note Signed Patient: Zeeshan Llanos MR#: [id number] : 1975 Acct:[id number] Age/Sex: 46 / M Adm Date: 2 Loc: Room: 9U4336-4 Type: ADM INOo Attending Dr: Di Patel MD Copies to: MD Di Garcia MD~ Status Event Note Event Note DATE OF EVENT: 11/03/21 TIME OF EVENT: 08:47 EVENT DETAILS: Patient was admitted after midnight please refer to H&P for detail note regarding his presentation. On examination he was resting comfortably and mentioned pain slightly better as compared to hispresentation. Denies prior history of abdominal pain or having EGD done in the past. No sick contact and denies having diarrhea. He does have history of coronary disease and takes aspirin. Avoid other NSAIDs. Replace potassium. If no improvement in symptomswill obtain GI evaluation. Documented By: Di Patel MD 11/03/21 0847 Signed By: <Electronically signed by Di Patel MD> 11/03/[address] [facility] Work Phone: Progress note No data available for this section [facility] CenterReason for referral (narrative)* Consultation (Routine) - AuthorizedSpecialtyDiagnoses / ProceduresReferred By Contact Referred To ContactCardiology Diagnoses Coronary artery disease, unspecified vessel or lesion type, unspecified whether angina present, unspecified whether mcgrath or transplanted heart Procedures Follow Up In Cardiology Zeeshan Wilhelm DO [address] [facility] [address], [address] [address] Zeeshan Wilhelm DO [address] [facility] [address], [address] [address] Referral IDStatusReasonStart DateExpiration DateVisits RequestedVisits [id number]/31/20241/ [facility] Work Phone: Reason for visit Narrative* Auth/Cert (Routine) SpecialtyDiagnoses / ProceduresReferred By ContactReferred To Contact Diagnoses Spinal stenosis, lumbar region with neurogenic claudication Referral IDStatusReasonStart DateExpiration DateVisits RequestedVisits [id number] [facility] Family History Unknown Family Member Name Dates Details Family history of diabetes m ellitus: Father, Brother(V18.0, Z83.3) Status:ActiveFamily history of hypertension: Father, Brother(V17.49, Z82.49) Status:Active Unknown Family Member Name Dates Details Family history of diabetes m ellitus: Father, Brother(V18.0, Z83.3) Status:ActiveFamily history of hypertension: Father, Brother(V17.49, Z82.49) Status:Active Unknown Family Member Name Dates Details Family history of diabetes m ellitus: Father, Brother(V18.0, Z83.3) Status:ActiveFamily history of hypertension: Father, Brother(V17.49, Z82.49) Status:Active Unknown Family Member Name Dates Details Family history of diabetes m ellitus: Father, Brother(V18.0, Z83.3) Status:ActiveFamily history of hypertension: Father, Brother(V17.49, Z82.49) Status:Active Relationship Condition Age at Onset Recorded Date/T liam father Diabetes mellitus Unknown Heart diseaseUnknowngrandparentDiabetes mellitusUnknownfamily memberDiabetes mellitusUnknown Relationship Condition Age at Onset Recorded Date/T liam father Diabetes mellitus Unknown Heart diseaseUnknownMalignant neoplasm of lungUnknowngrandparentDiabetes mellitusUnknownfamily memberDiabetes mellitusUnknownNot SpecifiedSeizureUnknown Unknown Family Member Name Dates Details Family history of diabetes m ellitus: Father, Brother(V18.0, Z83.3) Status:ActiveFamily history of hypertension: Father, Brother(V17.49, Z82.49) Status:Active Unknown Family Member Name Dates Details Family history of diabetes m ellitus: Father, Brother(V18.0, Z83.3) Status:ActiveFamily history of hypertension: Father, Brother(V17.49, Z82.49) Status:Active Relationship Condition Age at Onset Recorded Date/T liam father Diabetes mellitus Unknown Heart diseaseUnknownMalignant neoplasm of lungUnknowngrandparentDiabetes mellitusUnknownfamily memberDiabetes mellitusUnknownNot SpecifiedSeizureUnknown fatherHypertensionUnknownDiabetes mellitusUnknownDeceasedUnknownNot Specified Seizure disorderUnknownHypertensionUnknown Relationship Condition Age at Onset Recorded Date/T liam father Diabetes mellitus Unknown Heart diseaseUnknownMalignant neoplasm of lungUnknowngrandparentDiabetes mellitusUnknownfamily memberDiabetes mellitusUnknownmotherSeizureUnknownfather HypertensionUnknownDiabetes mellitusUnknownDeceasedUnknownmotherSeizure disorder UnknownHypertensionUnknown Chief Complaint * ZEESHAN LLANOS is being seen for a 6 month follow-up of. 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 1 year ago he sustained a non-ST elevation DC with revascularization ofthe RCA with a large 4.5 mm drug-eluting stent. He had minimal left ventricular dysfunction. He hasunderlying hyperlipidemia, diabetes, hypertension, ongoing tobacco use at least a pack to pack and a half a day. He remains on appropriate guideline directed medical therapies with excellent hemodynamics he is not obese. * We counseled him extensively for 5 minutes today on tobacco cessation especially given the fact he has other inflammatory comorbidities including severe arthritis, diabetes and hyperlipidemia. * Recommendations: He can discontinue his Brilinta at this juncture reinitiate meloxicam with warnings, smoking cessation counseling. * We reviewed his lipid panel, he has mild hypertriglyceridemia and we also counseled him on the factand to aggressively controlled diabetes * Will follow-up in 1 year * ZEESHAN LLANOS is being seen for a 6 month follow-up of. * 47-year-old gentleman returns for follow-up and is doing well he has no cardiovascular complaints. He is stable status post inferior DC in 2020 with primary revascularization of the RCA, subsequent ACS event in February 2022 with revascularization of the circumflex (RCA stent was widely patent) with mild LV dysfunction. * His NYHA classification is class IIc * He has underlying diabetes, hyperlipidemia, ongoing tobacco use and is maintaining compliance with his medical therapies without symptoms, without angina or nitrate usage or hospitalizations or heartfailure * Recommendations, smoking cessation counseling, continue current therapies, continue DAPT for another 6 months, follow-up in 6 months Summary Purpose Advance Directives Advance Directive Response Recorded Date/ Time Advance Directives No April 10:12am Advance Directive Response Recorded Date/ Time Advance Directives No April 9:12am Advance Directive Response Recorded Date/ Time Advance Directives No June 04, 2 024 3:27pm Date ActivatedDate InactivatedComments06/10/2023 7:28 PM06/11/2023 4:20 PMDate ActivatedDate InactivatedComments07/21/2019 12:16 PM07/21/2019 5:50 PMCode Status Date ActivatedDate InactivatedCommentsFull Code07/21/2019 12:16 PM07/21/2019 5:50 PMDate ActivatedDate InactivatedComments06/10/2023 7:28 PM06/11/2023 4:20 PMDate ActivatedDate InactivatedComments07/21/2019 12:16 PM07/21/2019 5:50 PMCode Status Date ActivatedDate InactivatedCommentsFull Code06/10/2023 7:28 PM06/11/2023 4:20 PMCode StatusDate ActivatedDate InactivatedCommentsFull Code07/21/2019 12:16 PM 07/21/2019 5:50 PMCode StatusDate ActivatedDate InactivatedCommentsFull Code 06/10/2023 7:28 PM06/11/2023 4:20 PMCode StatusDate ActivatedDate Inactivated CommentsFull Code07/21/2019 12:16 PM07/21/2019 5:50 PMDate ActivatedDate QrqgtfhprieRvvzcbok71/28/2024 4:46 PM10 4:24 PMDate ActivatedDate InactivatedComments06/10/2023 7:28 PM06/11/2023 4:20 PMDate ActivatedDate InactivatedComments07/21/2019 12:16 PM07/21/2019 5:50 PMDate ActivatedDate AssdfmcuklkZqlxnfgo46/28/2024 4:46 PM10 4:24 PMDate ActivatedDate InactivatedComments06/10/2023 7:28 PM06/11/2023 4:20 PMDate ActivatedDate InactivatedComments07/21/2019 12:16 PM07/21/2019 5:50 PM Chief Complaint and Reason for Visit Chief Complaint Stomach Pain Reason for Visit Diabetes Duodenitis Fever Hypertension Leukocytosis Chief Complaint n stemi Reason for Visit Acute coronary syndr ome Diabetes Diabetes mellitus type 2 in nonobese GERD (gastroesophageal reflux disease) Hyperlipidemia Hypertension NSTEMI (non-ST elevated myocardial infarction) Single vessel coronary artery disease Chief Complaint Poss infected tooth Right lower back painReason for VisitDental decay Dental infection Low back pain Chief Complaint Admit Date Chest congestion July 19, 2024 2:1 7pm Chief Complaint Admit Date Chest congestion July 19, 2024 2:1 7pm cough July 21, 2024 11: 56am R05.9 - Cough, unspecified July 21, 025 12:06pm Reason for Visit Admit Date Acute lower respiratory infection July 19, 2024 2:17pm Reason for Visit Admit Date Acute lower respiratory infection July 19, 2024 2:17pm Asthma exacerbation July 21, 2024 11: 56am Reason for Referral SpecialtyDiagnoses / ProceduresReferred By ContactReferred To Contact Diagnoses Spinal stenosis of cervical region Procedures Follow-up with primary care provider 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, 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 [address] [place] [address] Referral IDStatusReasonStart DateExpiration DateVisits RequestedVisits [id number] / ProceduresReferred By ContactReferred To Contact Diagnoses Unspecified mononeuropathy of bilateral lower limbs Procedures Case request operating room: INJECTION BLOCK NERVE BIlateral Cluneal Edy Mansfield PA-C [address] [facility] [place] [address] Referral IDStatusReasonStart DateExpiration DateVisits RequestedVisits [id number] Review Additional Source Comments (unrecognized sect ion and content) No Status Records FoundNo Status Records FoundNo Status Records FoundNo Status Records FoundNo Status Records FoundNo Status Records FoundNo Status Records FoundNo Status Records FoundNo Status Records FoundNo Status Records FoundNo Status Records FoundNo Status Records Found INFORMATION SOURCE (unrecogn ized section and content) DATE CREATED AUTHOR 07/20/2021 [employer] DATE CREATED AUTHOR AUTHOR'S ORGANIZ ATION 03/15/2022 [facility] [place] DATE CREATED AUTHOR AUTHOR'S ORGANIZ ATION 06/05/2022 [facility] DATE CREATED AUTHOR AUTHOR'S ORGANIZ ATION 08/02/2022 [facility] DATE CREATED AUTHOR AUTHOR'S ORGANIZ ATION 05/13/2023 [facility] DATE CREATED AUTHOR AUTHOR'S ORGANIZ ATION 06/02/2023 [facility] DATE CREATED AUTHOR AUTHOR'S ORGANIZ ATION 07/02/2024 [facility] DATE CREATED AUTHOR AUTHOR'S ORGANIZ ATION 07/13/2024 [facility] DATE CREATED AUTHOR AUTHOR'S ORGANIZ ATION 07/30/2024 [facility] DATE CREATED AUTHOR AUTHOR'S ORGANIZ ATION 10/19/2024 [facility] DATE CREATED AUTHOR AUTHOR'S ORGANIZ ATION 11/28/2024 [facility] DATE CREATED AUTHOR AUTHOR'S ORGANIZ ATION 12/25/2024 [facility] Care Teams (unrecognized sec tion and content) Team Status: Inactive Member Role Status Dates Crystal Carmona MD Primary Care Provider Active Giovanni Sood Jr ProviderActiveFatemeh Carrillo Provider ActiveRodo Izaguirre ProviderActive Team Status: Active Member Role Status Dates Crystal Carmona MD Primary Care Provider Active Team Status: Inactive Member Role Status Dates Crystal Carmona MD Primary Care Provider Active Fatemeh Mota ProviderActiveIvanna Nova MDOther Provider ActiveRodo Reed ProviderActive Team Status: Inactive Member Role Status Dates Crystal Carmona MD Primary Care Provider Active Celsa Rochadorinda ProviderActiveTeam MemberRelationshipSpecialtyStart [place] [address] [facility] [address] [place] [address] PCP - General07/23/20 Team Status: Inactive Member Role Status Dates Crystal Carmona MD Primary Care Provider Active S tart: June 05, 2023 End: June 04flower Juarez NP-CAttenaugustin ProviderActiveStart: June 05, 2023 End: June 05, 2023 Team Status: Inactive Member Role Status Dates Crystal Carmona MD Primary Care Provider Active S tart: August 29, 2023 End: August 28ran Vital APRNAtayad ProviderActiveStart: August 29, 2023 End: August 29, 2023Team MemberRelationshipSpecialtyStart DateEnd Date Crystal Carm[place] [id number] [place] [address] [address] [place] [address] PCP - GeneralFamily Medicine05/20/19 Pain management Referring Physician06/06/23Team MemberRelationshipSpecialtyStart [place] [address] [facility] [address] [place] [address] PCP - GeneralFamily Medicine05/20/19Team MemberRelationshipSpecialtyStart [place] [address] [facility] [address] [place] [address] PCP - GeneralFamily Medicine05/20/19 Pain management Referring Physician06/06/23Team MemberRelationshipSpecialtyStart [place] [address] [facility] [address] [place] [address] PCP - GeneralFamily Medicine05/20/19 Pain management Referring Physician06/06/23Team MemberRelationshipSpecialtyStart [place] [address] [facility] [address] [place] [address] PCP - GeneralFamily Medicine05/20/19Team MemberRelationshipSpecialtyStart [place] [address] [facility] [address] [place] [address] PCP - GeneralFamily Medicine05/20/19 Pain management Referring Physician06/06/23Team MemberRelationshipSpecialtyStart [place] [address] [facility] [address] [place] [address] PCP - GeneralFamily Medicine05/20/19Team MemberRelationshipSpecialtyStart [place] [address] [facility] [address] [place] [address] PCP - GeneralFamily Medicine05/20/19Team MemberRelationshipSpecialtyStart [place] [address] [facility] [address] [place] [address] PCP - GeneralFamily Medicine05/20/19 Pain management Referring Physician06/06/23Team MemberRelationshipSpecialtyStart [place] [address] [facility] [address] [place] [address] PCP - GeneralFamily Medicine05/20/19 Pain management Referring Physician06/06/23Team MemberRelationshipSpecialtyStart [place] [address] [facility] [address] [place] [address] PCP - GeneralFamily Medicine05/20/19 Pain management Referring Physician06/06/23Team MemberRelationshipSpecialtyStart [place] [address] [facility] [address] [place] [address] PCP - GeneralFamily Medicine05/20/19 Pain management Referring Physician06/06/23Team MemberRelationshipSpecialtyStart [place] [address] [facility] [address] [place] [address] PCP - GeneralFamily Medicine05/20/19 Pain management Referring Physician06/06/23Team MemberRelationshipSpecialtyStart [place] [address] [facility] [address] [place] [address] PCP - GeneralFamily Medicine05/20/19 Pain management Referring Physician06/06/23Team MemberRelationshipSpecialtyStart [place] [address] [facility] [address] [place] [address] PCP - GeneralFamily Medicine05/20/19 Pain management Referring Physician06/06/23Team MemberRelationshipSpecialtyStart [place] [address] [facility] [address] [place] [address] PCP - GeneralFamily Medicine05/20/19 Pain management Referring Physician06/06/23Team MemberRelationshipSpecialtyStart [place] [address] [facility] [address] [place] [address] PCP - GeneralFamily Medicine05/20/19 Pain management Referring Physician06/06/23Team MemberRelationshipSpecialtyStart [place] [address] [facility] [address] [place] [address] PCP - GeneralFamily Medicine05/20/19 Pain management Referring Physician06/06/23Team MemberRelationshipSpecialtyStart [place] [address] [facility] [address] [place] [address] PCP - GeneralFamily Medicine05/20/19 Pain management Referring Physician06/06/23Team MemberRelationshipSpecialtyStart [place] [id number] [facility] [address] [place] [address] PCP - General07/23/20Team MemberRelationshipSpecialtyStart DateEnd Date Crystal Carmona [place] [id number] [place] [address] [place] [id number] PCP - GeneralFamily Medicine05/20/19 Pain management Referring Physician06/06/23 Team Status: Inactive Member Role Status Dates Crystal Carmona MD Primary Care Provider Active S tart: July 19, 2024 End: July 19, 2024Ely Schroeder ProviderActiveStart: July 19, 2024 End: July 19, 2024 Team Status: Inactive Member Role Status Dates Crystal Carmona MD Primary Care Provider Active S tart: July 21, 2024 End: July 21, 2024Ely Schroeder ProviderActiveStart: July 21, 2024 End: July 21, 2024 Team Status: Active Member Role Status Dates Crystal Carmona MD Primary Care Provider Active S tart: July 21, 2024 Ely Schroeder ProviderActiveStart: July 21, 2024 Team MemberRelationshipSpecialtyStart [place] [address] [facility] [address] [place] [address] PCP - GeneralFamily Medicine05/20/19 Pain management Referring Physician06/06/23 REASON FOR VISIT (unrecogniz ed section and content) ReasonCommentsFollow-up6 monthsReasonCommentsBack PainReasonCommentsBack Pain ReasonCommentsestablished patientf/u nothing priorReasonCommentsFollow-up manager inpatient/ep/lumbar now cervical/films pushed to [facility]/last seen 08/2019/mailed pkt SpecialtyDiagnoses / ProceduresReferred By ContactReferred To Contact Diagnoses Spinal stenosis of cervical region Spinal stenosis of cervical region [M48.02] Procedures DE REMV VERT BODY,CERV,ONE SGMT DE REMV VERT BODY,CERV,EACH ADDNL SGMT ANTERIOR CORPECTOMY CERVICAL/C5-7 Cervical Arthroplasty Eugene Patricia MD [address] [place] [address] Referral IDStatusReasonStart DateExpiration DateVisits RequestedVisits [id number] week post op C5-7 arthroplasty ReasonCommentsWound CheckReasonCommentsFollow-upF/u to review imaging discuss optionsReasonCommentsFollow-upF/u to review testingReasonCommentsPost-op6 week po L5-S1 PLIF;xrays priorReasonCommentsFollow-up1 year for coronary artery diseaseSpecialtyDiagnoses / ProceduresReferred By ContactReferred To Contact Cardiology Diagnoses Coronary artery disease, unspecified vessel or lesion type, unspecified whether angina present, unspecified whether mcgrath or transplanted heart Procedures Follow Up In Cardiology Zeeshan Wilhelm DO [address] [facility] [address], [address] [address] Phone: tel: fax: Zeeshan Wilhelm DO [address] [facility] [address], [address] [place] [address] Phone: tel: fax: Referral IDStatusReasonStart DateExpiration DateVisits RequestedVisits [id number] L5-S1 PLIF;xrays priorReasonCommentsFollow-upF/u lumbar & review ct Goals (unrecognized section and content) Goals may be documented in a n alternate section Scheduled Active and Recently Administ ered Medications (unrecognized section and content) Medication Order// carisoprodoL (SOMA) tablet 350 mg 350 mg, oral, 2 times daily, First dose on Sat06/10/23 at 2130, Indications: muscle spasm * 2130 (Not Given - Provider: Dyllan Motnero RN - Reason: Take Home Medication - Comment: pts to bring in A.M) * 0900 (Not Given - Provider: Stanislav Watson RN - Reason: Medication not available) dapagliflozin propanediol (FARXIGA) tablet 10 mg 10 mg, oral, Daily, First dose on Sat06/11/23 at 0900, Indications: type 2 diabetes mellitus * 0944 (Given - Provider: Stanislav Watson, KOLE) dexAMETHasone (DECADRON) injection 4 mg 4 mg, intravenous, Every 6 hours, First dose on Sat06/10/23 at 2330, May alter blood glucose or insulin requirements. Look-alike/sound-alike medication - verify indication for use. * 2258 (Given - Provider: Dyllan Montero RN) * 0557 (Given - Provider: Dyllan Montero, KOLE) * 1144 (Given - Provider: Stanislav Watson, KOLE) finasteride (PROSCAR) tablet 5 mg 5 mg, oral, Daily, First dose on Sat06/11/23 at 0900, Look-alike/sound-alike medication - verify indication for use. Crushed or broken tablets should not be handled by a woman who is or may become because of the potential for absorption and the subsequent potential risk to fetus., Indications: benign prostatic hyperplasia with lower urinary tract sx * 0944 (Given - Provider: Stanislav Watson RN) heparin (porcine) injection 5,000 Units 5,000 Units, subcutaneous, Every 12 hours scheduled, First dose on Sat06/11/23 at 2100, Creatinine clearance less than 10 mL/min, immediate post-op patient, or increased risk of bleeding, weight lessthan 50 kg, age greater than 85 years. Notify prescriber if INR greater than 1.9, hemoglobin less than 10 mg/dL, aPTT greater than 40 seconds, and/or platelet count less than 100,000/mm Look-alike/sound-alike medication - verify indication for use. Observe for bleeding. hydroCHLOROthiazide (HYDRODIURIL) tablet 25 mg 25 mg, oral, Daily, First dose on Sat06/11/23 at 0900, Look-alike/sound-alike medication - verify indication for use., Indications: hypertension * 0944 (Given - Provider: Stanislav Watson RN) insulin glargine (LANTUS, SEMGLEE) injection pen 32 Units 32 Units, subcutaneous, Nightly, First dose on Sat06/10/23 at 2200, Look-alike/sound-alike medication - verify indication for use. Prime with 2 units of insulin prior to administration. Basal (long acting) insulin for subcutaneous administration only. Do not mix with any other insulin. Pre-filled pens stable 28 days at room temperature. * 2255 (Given - Provider: Dyllan Montero RN) insulin regular (HumuLIN R,NovoLIN R) injection 5 Units (COMPLETED) 5 Units, subcutaneous, Once, On Sat06/10/23 at 1345, For 1 dose, Pre-op, Look-alike/sound-alike medication - verify indication for use. Prandial/supplemental insulin. Stable for 28 days at room temperature., Indications: type 2 diabetes mellitus * 1346 (Given - Provider: Cyndie Borden RN) lisinopriL (PRINIVIL,ZESTRIL) tablet 2.5 mg 2.5 mg, oral, Daily, First dose on Sat06/11/23 at 0900, Look-alike/sound-alike medication - verify indication for use., Indications: hypertension * 0944 (Given - Provider: Stanislav Garand, RN) meloxicam (MOBIC) tablet 15 mg 15 mg, oral, 2 times daily, First dose on Sat06/10/23 at 2130 * 215 (Given - Provider: Dyllan Montero RN) * 0943 (Given - Provider: Stanislav Watson, RN) metFORMIN (GLUCOPHAGE) tablet 500 mg 500 mg, oral, 2 times daily with meals, First dose on Sat06/11/23 at 0800, Hold dose and notify prescriber if blood glucose is less than 100 mg/dL or patient status has changed to NPO. Look-alike/sound-alike medication - verify indication for use. May alter blood glucose or insulin requirements. Metformin and use of contrast media will be reviewed according to Metformin and Metformin Containing Medications and Contrast Media policy., Indications: type 2 diabetes mellitus * 0943 (Given - Provider: Stanislav Watson, RN) metoprolol tartrate (LOPRESSOR) tablet 25 mg 25 mg, oral, 2 times daily, First dose on Sat06/10/23 at 2130, Look-alike/sound-alike medication - verify indication for use., Indications: hypertension * 2152 (Given - Provider: Dyllan Montero RN) * 0943 (Given - Provider: Stanislav Watson, RN) pantoprazole (PROTONIX) EC tablet 40 mg 40 mg, oral, 2 times daily, First dose on Sat06/10/23 at 2130, Look-alike/sound-alike medication - verify indication for use. If patient is receiving enteral feeding, consider alternative PPI or continue IV pantoprazole until the delayed-release tablet can be taken orally, Indication: GERD * 2152 (Given - Provider: Dyllan Montero RN) * 0943 (Given - Provider: Stanislav Watson, RN) pregabalin (LYRICA) capsule 150 mg 150 mg, oral, 2 times daily, First dose on Sat06/10/23 at 2130, Look-alike/sound-alike medication. Verify indication for use * 2152 (Given - Provider: Dyllan Montero, KOLE) * 0943 (Given - Provider: Stanislav Watson, RN) rosuvastatin (CRESTOR) tablet 20 mg 20 mg, oral, Daily, First dose on Sat06/11/23 at 0900, Look-alike/sound-alike medication - verify indication for use. * 0943 (Given - Provider: Stanislav Watson, KOLE) tamsulosin (FLOMAX) 24 hr capsule 0.4 mg 0.4 mg, oral, Daily, First dose on Sat06/11/23 at 0900, Do not crush or chew., Indications: benign prostatic hyperplasia with lower urinary tract sx * 0943 (Given - Provider: Stanislav Watson, KOLE) tiotropium-olodateroL 2.5-2.5 mcg/actuation mist 2 puff 2 puff, oral, Daily, First dose on Sat06/11/23 at 0900 * 0900 (Not Given - Provider: Stanislav Watson RN - Reason: Medication not available) vancomycin (VANCOCIN) 1,000 mg in sodium chloride 0.9 % 250 mL IVPB-MBP (COMPLETED) 1,000 mg, intravenous, at 250 mL/hr, Administer over 60 Minutes, Every 12 hours, First dose on Sat06/10/23 at 1230, For 1 dose, Pre-op, Pre Operative Prophylactic Antibiotic to be dosed by the pharmacy morning of surgery VESICANT (YELLOW) ADD-VANTAGE/MBP- Discard 24 hours after activating; disso lve drug prior to administration, Indication: Surgical prophylaxis * 1611 (New Bag - Provider: Tosin Herr RN) * 1711 (Stop Bag - Provider: Stanislav Watson RN) vancomycin (VANCOCIN) 1,000 mg in sodium chloride 0.9 % 250 mL IVPB-MBP (COMPLETED) 1,000 mg, intravenous, at 250 mL/hr, Administer over 60 Minutes, Every 12 hours, First dose on Sat06/11/23 at 0430, For 1 dose, Pharmacy to adjust per renal function; Administer 12 hours after pre-opdose for total of 2 doses including pre-op dose; Infuse all doses within 24 hours of initial dose. For patient less than 100 kg. VESICANT (YELLOW) ADD-VANTAGE/MBP- Discard 24 hours after activating; dissolve drug prior to administration, Indication: Surgical prophylaxis * 0423 (New Bag - Provider: Dyllan Montero RN) * 0523 (Stop Bag - Provider: Dyllan Montero RN) Medication Order// lactated ringers infusion (CANCELED) 50 mL/hr, intravenous, Continuous, Starting on Sat06/10/23 at 1230, Pre-op, If fluid restriction isnot indicated, infuse at a rate up to 5 mL/kg/hr not to exceed the total replacement volume (2 ml/kg/hr) from the time NPO status was initiated. * 1321 (New Bag - Provider: Cyndie Borden RN) sodium chloride 0.9 % infusion 75 mL/hr, intravenous, Continuous, Starting on Sat06/10/23 at 2130, For 12 hours * 2200 (New Bag - Provider: Dyllan Montero, KOLE) * 0248 (Rate/Dose Verify - Provider: Dyllan Montero, KOLE) * 0900 (Stop Bag - Provider: Stanislav Watson RN) Medication Order// albuterol (PROVENTIL,VENTOLIN) nebulizer solution 2.5 mg 2.5 mg, nebulization, Every 6 hours PRN, wheezing, shortness of breath, Starting on Sat06/10/23 at 2129, Implement INPATIENT/ED Bronchodilator Clinical Practice Guidelines? Yes, Document: \[email or web address] [email or web address]\epic\EPIC_Reference\Orders\Respiratory Care Guidelines\CPG Bronchodilator 2020.pdf fentaNYL (SUBLIMAZE) injection 25 mcg 25 mcg, intravenous, Every 2 hour PRN, severe pain - pain scale 7-10, Starting on Sat06/10/23 at 2129, For severe pain unresponsive to oral pain medications, breakthrough pain, or patients unable to tolerate oral medications. Look-alike/sound-alike medication - verify indication for use. fentaNYL (SUBLIMAZE) injection 50 mcg (CANCELED) 50 mcg, intravenous, Every 5 min PRN, Pain Scale 6-10, Starting on Sat06/10/23 at 1919, PACU (only), Up to a maximum dose of 150 mcg. Look-alike/sound-alike medication - verify indication for use. * 1939 (Given - Provider: Juany Galdamez, KOLE) * 2002 (Given - Provider: Juany Galdamez RN) HYDROcodone-acetaminophen (NORCO) 5-325 mg per tablet 1 tablet(Linked Group 1) 1 tablet, oral, Every 4 hours PRN, for pain 1-5/10, Starting on Sat06/10/23 at 2129, Look-alike/sound-alike medication - verify indication for use. * 2152 (See Alternative - Provider: Dyllan Montero, RN) * 0415 (See Alternative - Provider: Dyllan Montero, RN) HYDROcodone-acetaminophen (NORCO) 5-325 mg per tablet 2 tablet(Linked Group 1) 2 tablet, oral, Every 4 hours PRN, for pain 6-10/'10, Starting on Sat06/10/23 at 2129, Look-alike/sound-alike medication - verify indication for use. * 2152 (Given - Provider: Dyllan Montero, RN) * 0415 (Given - Provider: Dyllan Montero, KOLE) HYDROmorphone (PF) (DILAUDID) injection 0.4 mg (CANCELED) 0.4 mg, intravenous, Every 5 min PRN, for Pain Scale 6-10 if pain not controlled by fentanyl, Starting on Sat06/10/23 at 1919, PACU (only), Up to a maximum of 1.2 mg Look-alike/sound-alike medication- verify indication for use. * 2040 (Given - Provider: Teri Harper RN) * 2045 (Given - Provider: Teri Harper RN) lidocaine-EPINEPHrine (XYLOCAINE W/EPI) 1 %-1:010010 injection (CANCELED) As needed, Starting on Sat06/10/23 at 1723, Intra-op * 1723 (Given - Provider: Eugene Patricia MD) midazolam (PF) (VERSED) injection 2 mg (COMPLETED) 2 mg, intravenous, Once as needed, anxiety, Starting on Sat06/10/23 at 1228, For 1 dose, Pre-op, May repeat in 10 minutes, if needed, if original midazolam (VERSED) ineffective, Indication: Other, Indication: anxiety * 1454 (Given - Provider: Tosin Herr RN) ondansetron (PF) (ZOFRAN) injection 4 mg 4 mg, intravenous, Every 6 hours PRN, nausea, vomiting, Starting on Sat06/10/23 at 2129, Administerover 2-5 minutes. oxyCODONE (ROXICODONE) immediate release tablet 10 mg (CANCELED)(Linked Group 2) 10 mg, oral, Every 4 hours PRN, severe pain - pain scale 7-10, Starting on Sat06/10/23 at 1919, PACU (only), Look-alike/sound-alike medication - verify indication for use. Immediate release. * 1942 (Given - Provider: Juany Galdamez, RN) thrombin (recombinant) (RECOTHROM) solution (CANCELED) As needed, Starting on Sat06/10/23 at 1720, Intra-op * 1720 (Given - Provider: Eugene Patricia MD) vancomycin 1000 mg in NS 1000 mL irrigation (bot) (CANCELED) As needed, Starting on Sat06/10/23 at 1720, Intra-op * 1720 (Given - Provider: Eugene Patricia MD - Comment: GAVE TO STERILE TABLE FOR SURGEONS USE.NACL) Medication Order06/08/// midazolam (PF) (VERSED) 1 mg/mL injection - Pyxis Override Pull (COMPLETED) Starting on Sat06/10/23 at 1614, For 1 dose, Tosin Herr: cabinet override * 1632 (Given - Provider: Tosin Herr, KOLE) Order Group 1: HYDROcodone-acetaminophen (NORCO) 5-325 mg per tablet 1 tabletJump to med 1 tablet, oral, Every 4 hours PRN, for pain 1-5/10, Starting on Sat06/10/23 at 2129, Look-alike/sound-alike medication - verify indication for use. Or HYDROcodone-acetaminophen (NORCO) 5-325 mg per tablet 2 tabletJump to med 2 tablet, oral, Every 4 hours PRN, for pain 6-10/'10, Starting on Sat06/10/23 at 2129, Look-alike/sound-alike medication - verify indication for use. Group 2: oxyCODONE (ROXICODONE) immediate release tablet 5 mg (CANCELED) 5 mg, oral, Every 4 hours PRN, pain scale 1-6, Starting on Sat06/10/23 at 1919, PACU (only), Look-alike/sound-alike medication - verify indication for use. Immediate release. Or oxyCODONE (ROXICODONE) immediate release tablet 10 mg (CANCELED)Jump to med 10 mg, oral, Every 4 hours PRN, severe pain - pain scale 7-10, Starting on Sat06/10/23 at 1919, PACU (only), Look-alike/sound-alike medication - verify indication for use. Immediate release. Medication Order01/19//// acetaminophen (TYLENOL) tablet 650 mg 650 mg, oral, Every 6 hours, First dose on Sat01/20/24 at 1999 * 2027 (Given - Provider: Naya Fishman, KOLE) * 021 (Given - Provider: Naya Fishman, KOLE) * 0839 (Given - Provider: Asim Wilder, KOLE) * 1359 (Given - Provider: Asim Wilder, KOLE) * 2004 (Given - Provider: Naya Fishman, KOLE) * 0218 (Given - Provider: Naya Fishman, KOLE) * 0857 (Given - Provider: Edy Shook, KOLE) * 1400 (Due) carisoprodoL (SOMA) tablet 350 mg 350 mg, oral, 2 times daily, First dose on Sat01/20/24 at 2100, Indications: muscle spasm * 2157 (Given - Provider: Naya Fishman, KOLE) * 0901 (Given - Provider: Asim Wilder, KOLE) * 2005 (Given - Provider: Naya Fishman, KOLE) * 1032 (Given - Provider: Edy Shook, KOLE) finasteride (PROSCAR) tablet 5 mg 5 mg, oral, Daily, First dose on Sat01/21/24 at 0900, Look-alike/sound-alike medication - verify indication for use. Crushed or broken tablets should not be handled by a woman who is or maybecome because of the potential for absorption and the subsequent potential risk to fetus., Indications: benign prostatic hyperplasia with lower urinary tract sx * 0842 (Given - Provider: Asim Wilder, KOLE) * 0857 (Given - Provider: Edy Shook, KOLE) heparin (porcine) injection 5,000 Units 5,000 Units, subcutaneous, Every 12 hours scheduled, First dose on Sat01/21/24 at 2100, Creatinineclearance less than 10 mL/min, immediate post-op patient, or increased risk of bleeding, weight less than 50 kg, age greater than 85 years. Notify prescriber if INR greater than 1.9, hemoglobin less than 10 mg/dL, aPTT greater than 40 seconds, and/or platelet count less than 100,000/mm Look-alike/sound-alike medication - verify indication for use. Observe for bleeding. * 2010 (Given - Provider: Naya Fishman RN) * 08 (Given - Provider: Edy Shook RN) hydroCHLOROthiazide (HYDRODIURIL) tablet 25 mg 25 mg, oral, Daily, First dose on Sat01/21/24 at 0900, Look-alike/sound-alike medication - verify indication for use., Indications: hypertension * 0842 (Given - Provider: Asim Wilder RN) * 0857 (Given - Provider: Edy Shook, KOLE) insulin glargine (LANTUS, SEMGLEE) injection pen 60 Units 60 Units, subcutaneous, Daily, First dose on Sat01/21/24 at 1800, Look-alike/sound-alike medication - verify indication for use. Prime with 2 units of insulin prior to administration. Basal (long acting) insulin for subcutaneous administration only. Do not mix with any other insulin. Pre-filled pens stable 28 days at room temperature., Indications: type 2 diabetes mellitus * 2007 (Given - Provider: Naya Fishman RN - Comment: B) insulin lispro (HumaLOG) injection 2-10 Units 2-10 Units, subcutaneous, 3 times daily with meals, First dose on Sat01/21/24 at 0800, Daytime hyperglycemia dosing. For blood glucose 151-200 mg/dL, give 2 units. For blood glucose 201-250 mg/dL, give 4 units. For blood glucose 251-300 mg/dL, give 6 units. For blood glucose 301-350 mg/dL, give 8 units. For blood glucose 351-400 mg/dL, give 10 units. Give even if NPO or meals skipped. Do NOT give more often then every 4 hours when NPO. Notify prescriber if blood glucose greater than 400 mg/dL.Look-alike/sound-alike medication - verify indication for use. Prime with 2 units of insulin prior to administration. Prandial/supplemental Insulin. Pre-filled pens stable 28 days at room temperature. Insulin lispro should be administered within 15 minutes before or immediately after a meal. * 0858 (Given - Provider: Asim Wilder RN - Comment: 254 bs) * 1303 (Given - Provider: Asim Wilder RN - Comment: 371) * 1750 (Given - Provider: Asim Wilder RN - Comment: 328) * 0900 (Given - Provider: Edy Shook RN - Comment: 168) * 1200 (Not Given - Provider: Edy Shook RN - Reason: Patient/family refused) insulin regular (HumuLIN R,NovoLIN R) injection 10 Units (COMPLETED) 10 Units, intravenous, Once, On Sat01/20/24 at 1700, For 1 dose, PACU (only), Look-alike/sound-alike medication - verify indication for use. Prandial/supplemental insulin. Stable for 28 days at roomtemperature. * 1705 (Given - Provider: Leyla Alcantara RN) insulin regular (HumuLIN R,NovoLIN R) injection 10 Units (COMPLETED) 10 Units, intravenous, Once, On Sat01/20/24 at 1800, For 1 dose, PACU (only), Look-alike/sound-alike medication - verify indication for use. Prandial/supplemental insulin. Stable for 28 days at roomtemperature. * 1800 (Given - Provider: Leyla Alcantara RN) lisinopriL (PRINIVIL,ZESTRIL) tablet 2.5 mg 2.5 mg, oral, Daily, First dose on Sat01/21/24 at 0900, Look-alike/sound-alike medication - verifyindication for use., Indications: hypertension * 0839 (Given - Provider: Asim Wilder RN) * 0856 (Given - Provider: Edy Shook, KOLE) meloxicam (MOBIC) tablet 15 mg 15 mg, oral, Daily, First dose on Sat01/21/24 at 0900 * 0843 (Given - Provider: Asim Wilder RN) * 0857 (Given - Provider: Edy Shook, KOLE) metFORMIN (GLUCOPHAGE) tablet 500 mg 500 mg, oral, 2 times daily with meals, First dose on Sat01/21/24 at 0800, Hold dose and notify prescriber if blood glucose is less than 100 mg/dL or patient status has changed to NPO. Look-alike/sound-alike medication - verify indication for use. May alter blood glucose or insulin requirements. Metformin and use of contrast media will be reviewed according to Metformin and Metformin Containing Medications and Contrast Media policy., Indications: type 2 diabetes mellitus * 0843 (Given - Provider: Asim Wilder RN) * 1748 (Given - Provider: Asim Wilder RN) * 0856 (Given - Provider: Edy Shook, KOLE) metoprolol tartrate (LOPRESSOR) tablet 25 mg 25 mg, oral, 2 times daily, First dose on Sat01/20/24 at 2100, Look-alike/sound-alike medication -verify indication for use., Indications: hypertension * 2028 (Given - Provider: Naya Fishman RN) * 0846 (Given - Provider: Asim Wilder RN) * 2004 (Given - Provider: Naya Fishman RN) * 0855 (Given - Provider: Edy Shook, KOLE) pantoprazole (PROTONIX) EC tablet 40 mg 40 mg, oral, 2 times daily, First dose on Sat01/20/24 at 2100, Look-alike/sound-alike medication -verify indication for use. If patient is receiving enteral feeding, consider alternative PPI or continue IV pantoprazole until the delayed-release tablet can be taken orally, Indication: GERD * 2028 (Given - Provider: Naya Fishman RN) * 0843 (Given - Provider: Asim Wilder RN) * 2004 (Given - Provider: Naya Fishman, KOLE) * 0855 (Given - Provider: Edy Shook, KOLE) pregabalin (LYRICA) capsule 150 mg (CANCELED) 150 mg, oral, 2 times daily, First dose on Sat01/20/24 at 2100, Look-alike/sound-alike medication.Verify indication for use * 2028 (Given - Provider: Naya Fishman RN) pregabalin (LYRICA) capsule 150 mg 150 mg, oral, 3 times daily, First dose (after last reorder) on Sat01/20/24 at 2200, Look-alike/sound-alike medication. Verify indication for use * 2200 (Canceled Entry - Provider: Naya Fishman RN - Comment: Dose given before order modified from 2x daily to 3x daily) * 0548 (Given - Provider: Naya Fishman RN) * 1301 (Given - Provider: Asim Wilder RN) * 2005 (Given - Provider: Naya Fishman RN) * 0541 (Given - Provider: Naya Fishman RN) * 1400 (Due) rosuvastatin (CRESTOR) tablet 20 mg 20 mg, oral, Daily, First dose on Sat01/21/24 at 0900, Look-alike/sound-alike medication - verify indication for use. * 0900 (Given - Provider: Asim Wilder RN) * 0856 (Given - Provider: Edy Shook RN) sennosides-docusate sodium (SENOKOT-S) 8.6-50 mg 1 tablet 1 tablet, oral, 2 times daily, First dose on Sat01/21/24 at 0900, Start Post-Op Day 1: Hold for diarrhea * 0839 (Given - Provider: Asim Wilder RN) * 2100 (Not Given - Provider: Naya Fishman RN - Reason: Patient/family refused - Comment: Patient stated he has had 3-4 bowel mpovements already.) * 0900 (Not Given - Provider: Edy Shook RN - Reason: Patient/family refused) tamsulosin (FLOMAX) 24 hr capsule 0.4 mg 0.4 mg, oral, Daily, First dose on Sat01/21/24 at 0900, Do not crush or chew., 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 * 0845 (Given - Provider: Asim Wilder RN) * 0856 (Given - Provider: Edy Shook RN) tiotropium-olodateroL 2.5-2.5 mcg/actuation mist 2 puff 2 puff, oral, Daily, First dose on Sat01/21/24 at 0900 * 0848 (Given - Provider: Asim Wilder RN) * 0858 (Given - Provider: Edy Shook RN) vancomycin (VANCOCIN) 1,000 mg in sodium chloride 0.9 % 250 mL IVPB-MBP (COMPLETED) 1,000 mg, intravenous, at 250 mL/hr, Administer over 60 Minutes, Every 12 hours, First dose on Sat01/20/24 at 1200, For 1 dose, Pre-op, Pre Operative Prophylactic Antibiotic to be dosed by the pharmacy morning of surgery VESICANT (YELLOW) ADD-VANTAGE/MBP- Discard 24 hours after activating; diss olve drug prior to administration, Indication: Surgical prophylaxis * 1230 (New Bag - Provider: Shannan Fischer RN) * 1330 (Due: Stop Bag - Provider: Shannan Fischer RN) vancomycin (VANCOCIN) 1,000 mg in sodium chloride 0.9 % 250 mL IVPB-MBP (COMPLETED) 1,000 mg, intravenous, at 250 mL/hr, Administer over 60 Minutes, Every 12 hours, First dose on Sat01/21/24 at 0030, For 1 dose, Pharmacy to adjust per renal function; Administer 12 hours after pre-op dose for total of 2 doses including pre-op dose; Infuse all doses within 24 hours of initial dose.For patient less than 100 kg. VESICANT (YELLOW) ADD-VANTAGE/MBP- Discard 24 hours after activating; dissolve drug prior to administration, Indication: Surgical prophylaxis * 0022 (New Bag - Provider: Naya Fishman, KOLE) * 0122 (Stop Bag - Provider: Naya Fishman RN) Medication Order/// sodium chloride 0.9 % infusion 75 mL/hr, intravenous, Continuous, Starting on Sat01/20/24 at 2000, For 12 hours * 2027 (New Bag - Provider: Naya Fishman RN) Medication Order// albuterol (PROVENTIL,VENTOLIN) nebulizer solution 2.5 mg 2.5 mg, nebulization, Every 6 hours PRN, wheezing, shortness of breath, Starting on Sat01/20/24 [id number], Implement INPATIENT/ED Bronchodilator Clinical Practice Guidelines? Yes bisacodyL (DULCOLAX) suppository 10 mg 10 mg, rectal, As needed, constipation, if no BM within 6 hours of administering Milk of Magnesia, Starting on Sat01/22/24 at 0000, Start Post-Op Day 2 Look-alike/sound-alike medication - verify indication for use. bupivacaine-EPINEPHrine (PF) (MARCAINE w/EPI) 0.5 %-1:[id number] injection (CANCELED) As needed, Starting on Sat01/20/24 at 1346, Intra-op * 1346 (Given - Provider: Eugene Patricia MD) dextrose (GLUTOSE) 40 % gel 15 g 15 g, oral, As needed, low blood sugar, blood glucose less than 70 mg/dL, Starting on Sat01/21/24 at 0609, If patient conscious and taking PO. If blood glucose is not greater than 70 mg/dL after initial treatment, repeat treatment. dextrose 5 % (D5W) infusion 100 mL/hr, intravenous, Continuous PRN, blood glucose less than 70 mg/dL, Starting on Sat01/21/24 at 0609, For 1 day, Use immediately following dextrose 50% or glucagon treatment for patients who are unconscious or NPO. Contact prescriber for additional orders. If blood glucose is not greater than70 mg/dL after initial treatment, repeat treatment. dextrose 50 % in water (D50W) 50% solution 25 mL 25 mL, intravenous, As needed, low blood sugar, blood glucose less than 70 mg/dL and unconscious orNPO with IV access, Starting on Sat01/21/24 at 0609, Push over 1-3 minutes STAT. If conscious and not NPO, immediately follow with meal tray or high protein (7 grams) snack if tray not available. IfNPO, initiate 5% dextrose in water at 100 mL/hr and contact prescriber for additional orders. If blood glucose is not greater than 70 mg/dL after initial treatment, repeat treatment. VESICANT (RED) Warning: HYPERTONIC solution. fentaNYL (SUBLIMAZE) injection 25 mcg 25 mcg, intravenous, Every 2 hour PRN, severe pain - pain scale 7-10, Starting on Sat01/20/24 at 1950, For severe pain unresponsive to oral pain medications, breakthrough pain, or patients unable totolerate oral medications. Look-alike/sound-alike medication - verify indication for use. fentaNYL (SUBLIMAZE) injection 50 mcg (CANCELED) 50 mcg, intravenous, Every 5 min PRN, Pain Scale 6-10, Starting on Sat01/20/24 at 1621, PACU (only), Up to a maximum dose of 150 mcg. Look-alike/sound-alike medication - verify indication for use. * 1834 (Given - Provider: Leyla Alcantara RN) * 1901 (Given - Provider: Leyla Alcantara RN) gentamicin 160 mg in 0.9% sod chl 1000 mL irrigation (bag) (CANCELED) As needed, Starting on Sat01/20/24 at 1346, Intra-op * 1346 (Given - Provider: Eugene Patricia MD) glucagon HCL injection 1 mg 1 mg, intramuscular, As needed, low blood sugar, blood glucose less than 70 mg/dL and unconscious or NPO without IV access., Starting on Sat01/21/24 at 0609, If conscious and not NPO, immediately follow with meal tray or high protein (7Grams) snack if tray not available. If NPO, initiate IV 5% Dext kitty/Water at 100 mL/hr and contact prescriber for additional orders. If blood glucose is not greater than 70 mg/dL after initial treatment, repeat treatment. hydrALAZINE (APRESOLINE) injection 5 mg (CANCELED) 5 mg, intravenous, Every 10 min PRN, high blood pressure, systolic blood pressure greater than 160 mmHg, Starting on Sat01/20/24 at 1621, PACU (only), Maximum dose of hydrALAZINE (APRESOLINE) is 20 mg while in PACU Look-alike/sound-alike medication - verify indication for use. Administer IV doses as a slow IV push; maximum rate: 5 mg/minute. * 1736 (Given - Provider: Leyla Alcantara RN) labetaloL (NORMODYNE,TRANDATE) injection 5 mg (CANCELED) 5 mg, intravenous, Every 5 min PRN, high blood pressure, systolic blood pressure greater than 160 mmHg and heart rate greater than 60 beats per minute, Starting on Sat01/20/24 at 1621, PACU (only), Maximum dose of labetalol (TRANDATE) is 20 mg while in PACU Look-alike/sound-alike medication - verify indication for use. * 1730 (Given - Provider: Leyla Alcantara RN) magnesium hydroxide (MILK OF MAGNESIA) suspension 30 mL 30 mL, oral, 2 times daily PRN, if no BM by post-op day 2, Starting on Sat01/22/24 at 0000, Start Post-Op Day 2: DO NOT use in Renal/Dialysis patients Shake well. midazolam (PF) (VERSED) injection 1 mg (CANCELED) 1 mg, intravenous, As needed, anxiety, Starting on Sat01/20/24 at 1224, For 2 doses, Pre-op, May repeat in 10 minutes, if needed, if original midazolam (VERSED) ineffective, Indication: Other, Indication: anxiety * 1247 (Given - Provider: Shannan Fischer RN) ondansetron (PF) (ZOFRAN) injection 4 mg 4 mg, intravenous, Every 6 hours PRN, nausea, vomiting, Starting on Sat01/20/24 at 1950, Administer over 2-5 minutes. oxyCODONE (ROXICODONE) immediate release tablet 10 mg(Linked Group 1) 10 mg, oral, Every 6 hours PRN, for pain 6-10/10, Starting on Sat01/20/24 at 1710, Look-alike/sound-alike medication - verify indication for use. Immediate release. * 1900 (Given - Provider: Leyla Alcantara RN) * 0304 (See Alternative - Provider: Naya Fishman, KOLE) * 1300 (See Alternative - Provider: Asim Wilder RN) * 1947 (See Alternative - Provider: Naya Fishman, KOLE) * 0218 (Given - Provider: Naya Fishman, RN) * 0857 (Given - Provider: Edy Shook, KOLE) oxyCODONE (ROXICODONE) immediate release tablet 5 mg(Linked Group 1) 5 mg, oral, Every 6 hours PRN, for pain 1-5/10-, Starting on Sat01/20/24 at 1710, Look-alike/sound-alike medication - verify indication for use. Immediate release. * 1900 (See Alternative - Provider: Leyla Alcantara RN) * 0304 (Given - Provider: Naya Fishman RN - Comment: Patient requested smaller dose.) * 1300 (Given - Provider: Asim Wilder, KOLE) * 1947 (Given - Provider: Naya Fishman RN) * 0218 (See Alternative - Provider: Naya Fishman RN) * 0857 (See Alternative - Provider: Edy Shook RN) Order Group 1: oxyCODONE (ROXICODONE) immediate release tablet 5 mgJump to med 5 mg, oral, Every 6 hours PRN, for pain 1-5/10-, Starting on Sat01/20/24 at 1710, Look-alike/sound-alike medication - verify indication for use. Immediate release. Or oxyCODONE (ROXICODONE) immediate release tablet 10 mgJump to med 10 mg, oral, Every 6 hours PRN, for pain 6-10/10, Starting on Sat01/20/24 at 1710, Look-alike/sound-alike medication - verify indication for use. Immediate release. FOR RECORDS PERTAINING TO PATIENTS WHO ARE OR HAVE BEEN ENROLLED IN A CHEMICAL DEPENDENCY/SUBSTANCEABUSE PROGRAM, SOME INFORMATION MAY BE OMITTED. This clinical summary was aggregated from multiple sources. Caution should be exercised in using it in the provision of clinical care. This summary normalizes information from multiple sources, and as a consequence, information in this document may materially change the coding, format and clinical context of patient data. In addition, data may be omitted in some cases. CLINICAL DECISIONS SHOULD BE BASED ON THE PRIMARY CLINICAL RECORDS. [employer] provides no warranty or guarantee of the accuracy or completeness of information in this document.
[2025-01-19 11:52] LABS: Hematocrit 45.6 % (42.0-54.0); Hemoglobin 15.0 g/dL (14.0-18.0); Immature Granulocytes Abs Auto 0.05 10^3/uL (0.00-0.03); Immature Granulocytes Pct Auto 0.3 % (0.0-0.5); Lymphocytes Absolute Auto 2.5 10^3/uL (1.2-3.8); Mean Corpuscular HGB Conc 32.9 g/dL (29.9-35.2); Mean Corpuscular Hemoglobin 26.3 pg (25.9-34.0); Mean Corpuscular Volume 79.9 fL (80.0-94.0); Platelet Count 224 10^3/uL (150-450); Red Blood Count 5.71 10^6/uL (4.70-6.10); White Blood Count 18.0 10^3/uL (4.0-11.0)
[2025-01-19 12:21] LABS: Alanine Aminotransferase 29 U/L (16-63); Albumin Globulin Ratio 0.9; Albumin Level 3.3 g/dL (3.4-5.0); Alkaline Phosphatase 105 U/L (46-116); Anion Gap 16.5; Aspartate Amino Transferase 11 U/L (15-37); Blood Urea Nitrogen 13.0 mg/dL (7.0-18.0); Calcium 8.7 mg/dL (8.5-10.1); Carbon Dioxide 24.9 mmol/L (21.0-32.0); Chloride 98 mmol/L (98-107); Estimated GFR (African America >60 (>=60 mL/min/1.73m^2); Estimated GFR (Non-African Ame >60 (>=60 mL/min/1.73m^2); Globulin 3.8 g/dL; Glucose 217 mg/dL (74-106); Lipase 57.0 U/L (16.0-77.0); Potassium 3.4 mmol/L (3.5-5.1); Sodium 136 mmol/L (136-145); Total Protein 7.1 g/dL (6.4-8.2)
[2025-01-19] MEDS: FAMOTIDINE/PF 20 MG/2 ML VIAL IV (12:23)
[2025-01-19] MEDS: KETOROLAC TROMETHAMINE 30 MG/ML VIAL IVP (12:23)
--- NOTE | 2025-01-19 12:33 | CT_ITS ---
The [address] [address] Patient Name: MOI LLANOS MRN: [id number] date: 1975 Sex: M Assigned Patient Location: ER Current Patient Location: ER Accession/Order Number: [id number] Exam Date: 01/19/2025 12:29 Report Date: 01/19/2025 13:12 At the request of: CATRINA REDDY MD Procedure: CT abdomen pelvis wo con CT ABDOMEN AND PELVIS WITHOUT INTRAVENOUS CONTRAST: CLINICAL HISTORY: pancreatitis hx COMPARISON: CT abdomen and pelvis 02/12/2024 TECHNIQUE: Spiral images were obtained through the abdomen and pelvis without intravenous contrast. This CT exam was performed using one or more following dose reduction techniques: Automated exposure control, adjustment of the mA and/or kV according to patient size, or use of iterative reconstruction technique. FINDINGS: Lung Bases: [Minimal lung scarring.] Organs:Suboptimal evaluation due to lack of IV contrast. Liver gallbladder portal vein spleen and adrenal glands appear unremarkable. Inflammatory changes are seen involving the pancreatic head suspicious for pancreatitis. Kidneys demonstrate no stone or hydronephrosis. Aorta appears normal in caliber.[ GI: Stomach is grossly unremarkable. Small bowel appears nondilated. No acute colonic abnormality. Appendix normal.[ Pelvis:[Urinary bladder and prostate gland appear unremarkable.] Peritoneum/Retroperitoneum:No free air or free fluid or lymphadenopathy.[ Abd wall/Bones:No acute findings. Osseous structures demonstrate degenerative change. Hardware fixation involving the lumbosacral junction.[ CT/CT abdomen pelvis wo con IMPRESSION: Inflammatory changes surrounding the pancreatic head suspicious for acute pancreatitis. Impression dictated by: Chidi Velazquez Jr., D.O. 01/19/2025 1:12 PM Dictation Location: [place] [address] Electronically authenticated by: [id number] Y Date: 01/19/2025 13:12
--- NOTE | 2025-01-19 14:44 | US_ITS ---
[place] [id number] Patient Name: MOI LLANOS MRN: [id number] date: 1975 Sex: M Assigned Patient Location: ED.MAIN Current Patient Location: ED.MAIN Accession/Order Number: [id number] Exam Date: 01/19/2025 14:45 Report Date: 01/19/2025 15:53 At the request of: CATRINA REDDY MD Procedure: US right upper quadrant LIMITED ABDOMINAL ULTRASOUND: CLINICAL HISTORY: RUQ pain COMPARISON: None TECHNIQUE: Grayscale and color Doppler images of the right upper quadrant organs were obtained. FINDINGS: Pancreas: Not clearly visualized. Liver: Fatty infiltration. Gallbladder: Unremarkable. CBD: 5.7 mm RT KIDNEY: No Hydronephrosis US/US right upper quadrant IMPRESSION: FATTY INFILTRATION OF THE LIVER. NO ACUTE PROCESS.. Impression dictated by: Chidi Velazquez Jr. DKatheOKathe 01/19/2025 3:53 PM Dictation Location: [place] [address] Electronically authenticated by: [id number] Y Date: 01/19/2025 15:53
--- NOTE | 2025-01-19 16:04 | ED.ABDPAIN1 ---
HPI - Abdominal Pain General Chief Complaint: Abdominal Pain Stated Complaint: ABDOMINAL PAIN Time Seen by Provider: 01/19/25 11:34 Source: patient Mode of arrival: walk-in History of Present Illness HPI narrative: The patient is a 49-year-old male presenting to the ER with a epigastric pain radiating to the back he had a history of pancreatitis and he thinks he might have similar presentation, the patient is not in any distress is not nauseous not vomiting does not have any bowel movement He was asleep when I had to wake him up to ask him about the pain Related Data Home Medications ?Medication ?Instructions ?Recorded ?Confirmed albuterol sulfate 90 mcg/actuation 2 inh inhalation Q4H PRN shortness 02/12/24 02/12/24 aerosol inhaler (Ventolin HFA) of breath or wheezing aspirin 81 mg chewable tablet 1 tab PO DAILY 02/12/24 02/12/24 carisoprodol 350 mg tablet 350 mg PO TID 02/12/24 02/12/24 dapagliflozin propanediol 10 mg 10 mg PO DAILY 02/12/24 02/12/24 tablet (Farxiga) finasteride 5 mg tablet 5 mg PO DAILY 02/12/24 02/12/24 fluconazole 100 mg tablet 100 mg PO DAILY 02/12/24 02/12/24 hydrochlorothiazide 25 mg tablet 25 mg PO DAILY 02/12/24 02/12/24 lisinopril 2.5 mg tablet 2.5 mg PO DAILY 02/12/24 02/12/24 meloxicam 15 mg tablet 15 mg PO DAILY 02/12/24 02/12/24 metformin 500 mg tablet 500 mg PO BID 02/12/24 02/12/24 metoprolol tartrate 25 mg tablet 25 mg PO BID 02/12/24 02/12/24 pantoprazole 40 mg tablet,delayed 40 mg PO BID 02/12/24 02/12/24 release pregabalin 150 mg capsule 150 mg PO TID 02/12/24 02/12/24 rosuvastatin 20 mg tablet 20 mg PO DAILY 02/12/24 02/12/24 tamsulosin 0.4 mg capsule 0.4 mg PO DAILY 02/12/24 02/12/24 Previous Rx's ?Medication ?Instructions ?Recorded docusate sodium 100 mg capsule 100 mg PO BID #14 caps 02/12/24 (Colace) meloxicam 15 mg tablet 15 mg PO DAILY PRN pain #10 tabs 01/19/25 oxycodone-acetaminophen 5 mg-325 1 tab PO BID PRN pain 3 days #6 01/19/25 mg tablet (Percocet) tabs Allergies Allergy/AdvReac Type Severity Reaction Status Date / Time cephalexin (From Keflex) AdvReac Severe Unknown Verified 01/19/25 11:05 Review of Systems ROS Status of ROS 10 or more systems reviewed and unremarkable except as noted in history and below PFSH PFSH Social History Little interest or pleasure in doing things: not at all Feeling down, depressed, or hopeless: not at all Exam Narrative Exam Narrative: Nurses notes and vital signs reviewed and patient is not hypoxic. General: Well-appearing and in no apparent distress. Skin: Warm, dry, no pallor noted. No rash. Head: Normocephalic, atraumatic. Neck: Supple, non-tender. Eye: Pupils are equal, round and EOMI. No scleral icterus. Ears, Nose, Mouth, and Throat: TM are clear, no nasal mucosal hypertrophy. Oral mucosa is moist, no posterior oropharynx erythema, uvula is mid-line Cardiovascular: Regular Rate and Rhythm without murmur, gallop or rub. Respiratory: No accessory muscle use or respiratory distress. Lungs are clear to auscultation, no wheezing, rales or rhonchi Chest Wall: no tenderness Back: No midline thoracic or lumbar vertebral tenderness. No CVA tenderness Musculoskeletal: normal ROM, no calf or popliteal tenderness, no lower extremity edema/swelling GI: Abdomen is soft, non-distended. Mild epigastric discomfort No right upper quadrant tenderness Neurological: A&O x4. No cranial nerve dysfunction observed. No truncal ataxia. Moves all extremities. Sensation intact. Psychiatric: Cooperative and interactive. Normal mood and affect. Constitutional Vital Signs, click to edit/add: Last Vital Signs Temp 98.8 F 01/19/25 11:05 Pulse 76 01/19/25 11:05 Resp 20 01/19/25 11:05 BP 109/65 01/19/25 15:41 Pulse Ox 95 01/19/25 15:01 O2 Del Method Room Air 01/19/25 11:05 Course Vital Signs Vital signs: Vital Signs Temperature 98.8 F 01/19/25 11:05 Pulse Rate 76 01/19/25 11:05 Respiratory Rate 20 01/19/25 11:05 Blood Pressure 155/92 H 01/19/25 11:05 Pulse Oximetry 97 01/19/25 11:05 Oxygen Delivery Method Room Air 01/19/25 11:05 Temperature 98.8 F 01/19/25 11:05 Pulse Rate 76 01/19/25 11:05 Respiratory Rate 20 01/19/25 11:05 Blood Pressure 109/65 01/19/25 15:41 Pulse Oximetry 95 01/19/25 15:01 Oxygen Delivery Method Room Air 01/19/25 11:05 MDM - Abdominal Pain MDM Narrative Medical decision making narrative: The patient CBC shows leukocytosis but the chemistry was within normal and the lipase was not elevated CAT scan showed that the patient still have some inflammation around the pancreas with suspected pancreatitis and the ultrasound shows no gallbladder changes that is concerning for any acute cholecystitis The patient was not in any distress here in the ER he was not in pain he was asleep most of the time I presented to the bedside to evaluate him Provided with Mobic for pain as well as Percocet instructed to hydrate well and come back to the ER in case of any concerns The patient to follow-up with the primary care within 2 to 3 days and to come back to the ER in case of any worsening of the current symptoms or any new symptoms or concerns Lab Data Labs: Lab Results 01/19/25 Range/Units 11:43 WBC 18.0 H (4.0-11.0) 10^3/uL RBC 5.71 (4.70-6.10) 10^6/uL Hgb 15.0 (14.0-18.0) g/dL Hct 45.6 (42.0-54.0) % MCV 79.9 L (80.0-94.0) fL MCH 26.3 (25.9-34.0) pg MCHC 32.9 (29.9-35.2) g/dL RDW 18.4 H (11.0-15.0) % Plt Count 224 (150-450) 10^3/uL MPV 10.6 (9.5-13.5) fL Neut % (Auto) 77.7 H (43.0-75.0) % Lymph % (Auto) 13.6 L (20.5-60.0) % Morrow % (Auto) 6.2 (1.7-12.0) % Eos % (Auto) 1.8 (0.9-7.0) % Baso % (Auto) 0.4 (0.2-2.0) % Neut # (Auto) 13.9 H (1.4-6.5) 10^3/uL Lymph # (Auto) 2.5 (1.2-3.8) 10^3/uL Morrow # (Auto) 1.1 H (0.3-0.8) 10^3/uL Eos # (Auto) 0.3 (0.0-0.7) 10^3/uL Baso # (Auto) 0.1 (0.0-0.1) 10^3/uL Abs Immat Gran (auto) 0.05 H (0.00-0.03) 10^3/uL Imm/Tot Granulo (auto) 0.3 (0.0-0.5) % Sodium 136 (136-145) mmol/L Potassium 3.4 L (3.5-5.1) mmol/L Chloride 98 (98-107) mmol/L Carbon Dioxide 24.9 (21.0-32.0) mmol/L Anion Gap 16.5 BUN 13.0 (7.0-18.0) mg/dL Creatinine 0.69 L (0.70-1.30) mg/dL Est GFR ( Amer) >60 (>=60 mL/min/1.73m^2) Est GFR (Non-Af Amer) >60 (>=60 mL/min/1.73m^2) BUN/Creatinine Ratio 18.8 Glucose 217 H (74-106) mg/dL Calcium 8.7 (8.5-10.1) mg/dL Total Bilirubin 0.2 (0.2-1.0) mg/dL AST 11 L (15-37) U/L ALT 29 (16-63) U/L Alkaline Phosphatase 105 (46-116) U/L Total Protein 7.1 (6.4-8.2) g/dL Albumin 3.3 L (3.4-5.0) g/dL Globulin 3.8 g/dL Albumin/Globulin Ratio 0.9 Lipase 57.0 (16.0-77.0) U/L Discharge Plan Discharge Chief Complaint: Abdominal Pain Clinical Impression: Acute pancreatitis Patient Disposition: Home, Self-Care Time of Disposition Decision: 16:08 Condition: Good Prescriptions / Home Meds: New meloxicam 15 mg tablet 15 mg PO DAILY PRN (Reason: pain) Qty: 10 0RF oxycodone-acetaminophen [Percocet] 5-325 mg tablet 1 tab PO BID PRN (Reason: pain) 3 Days Qty: 6 0RF No Action albuterol sulfate [Ventolin HFA] 90 mcg/actuation HFA aerosol inhaler 2 inh INHALATION Q4H PRN (Reason: shortness of breath or wheezing) aspirin 81 mg tablet,chewable 1 tab PO DAILY carisoprodol 350 mg tablet 350 mg PO TID dapagliflozin propanediol [Farxiga] 10 mg tablet 10 mg PO DAILY finasteride 5 mg tablet 5 mg PO DAILY fluconazole 100 mg tablet 100 mg PO DAILY hydrochlorothiazide 25 mg tablet 25 mg PO DAILY lisinopril 2.5 mg tablet 2.5 mg PO DAILY meloxicam 15 mg tablet 15 mg PO DAILY metformin 500 mg tablet 500 mg PO BID metoprolol tartrate 25 mg tablet 25 mg PO BID pantoprazole 40 mg tablet,delayed release (DR/EC) 40 mg PO BID pregabalin 150 mg capsule 150 mg PO TID rosuvastatin 20 mg tablet 20 mg PO DAILY tamsulosin 0.4 mg capsule 0.4 mg PO DAILY docusate sodium [Colace] 100 mg capsule 100 mg PO BID Qty: 14 0RF Print Language: Norwegian Instructions: Pancreatitis (ED) Referrals: CRYSTAL ELAM [Primary Care Provider, Family Practice] - 1 week
== END 2025-01-19 16:22 | disposition home or self-care (01) ==
PROVIDERS: Emergency Provider Emergency Medicine; Family Provider Family Medicine; PCP Family Medicine
DX: K85.90 Acute pancreatitis without necrosis or infection, unspecified (principal)
CPT/HCPCS: 36415; 74176; 76705; 80053; 83690; 85025; 96374; 96375; 99284; 99285; J1885; J3490